=== PATIENT | male | born 1960 | race Caucasian/White ===

== ENCOUNTER → 2016-11-25 | Outpatient (CLI) | payer OTHER ==
--- NOTE | 2016-11-25 08:03 | CT ---
EXAMINATION TYPE: CT brain w con DATE OF EXAM: 11/25/2016 COMPARISON: NONE INDICATION: MOSS, syncope, recent head injury DLP: 891.3 mGycm, Automated exposure control for dose reduction was used. CONTRAST: None CT of the brain is performed utilizing 3 mm thick sections through the posterior fossa and 3 mm thick sections through the remaining calvarium. Study is performed within 24 hours of arrival to the hosp [facility]. No abnormal hyperdensity is present to suggest an acute intracranial hemorrhage. No mass lesion is evident. No acute infarcts are evident. Ventricles and sulci are appropriate for the patient age. There is mucosal thickening within the visualized ethmoid air cells. Mastoid air cells appear clear. Frontal sinuses are aplastic. Sphenoid sinuses are clear. Spina bifida occulta of C1 may be present. No abnormal enhancement is evident. IMPRESSIONS: 1. Normal postcontrast CT brain. 2. Minimal mucosal thickening through ethmoid air cells.
== END | disposition home or self-care (01) ==
LOC: RADCTMAIN 07:30
PROVIDERS: ATTEND Family Medicine
DX: G44.329 Chronic post-traumatic headache, not intractable (principal); J34.89 Other specified disorders of nose and nasal sinuses
CPT/HCPCS: 70460; Q9967

== ENCOUNTER 2019-04-19 15:15 | Inpatient (IN) | payer OTHER ==
[2019-04-19] MEDS ORDERED: IPRATROPIUM-ALBUTEROL 3 ML NEB INHALATION STA (15:57)
--- NOTE | 2019-04-19 16:18 | XR ---
EXAMINATION TYPE: XR chest 2V DATE OF EXAM: 04/19/2019 COMPARISON: 05/07/2017 INDICATION: Chest pain short of breath COPD TECHNIQUE: Frontal and lateral views of the chest are obtained. FINDINGS: The heart size is normal. The pulmonary vasculature is normal. The lungs are clear. IMPRESSION: 1. No acute pulmonary process.
[2019-04-19 16:20] LABS: Basophils # (A) 0.1 k/uL (0-0.2); Basophils % (A) 2 %; Eosinophils # (A) 0.2 k/uL (0-0.7); Eosinophils % (A) 3 %; HCT 44.8 % (39.0-53.0); Hypochromasia Slight; Lymphocytes # (A) 1.5 k/uL (1.0-4.8); Lymphocytes % (A) 23 %; MCH 30.4 pg (25.0-35.0); MCHC 31.2 g/dL (31.0-37.0); MCV 97.5 fL (80.0-100.0); Mean Platelet Volume 10.7; Monocytes # (A) 0.3 k/uL (0-1.0); Monocytes % (A) 4 %; Neutrophils # (A) 4.4 k/uL (1.3-7.7); Neutrophils % (A) 68 %; Platelet Count 292 k/uL (150-450); RBC 4.59 m/uL (4.30-5.90); RDW 13.2 % (11.5-15.5); WBC 6.5 k/uL (3.8-10.6)
[2019-04-19 16:21] LABS: Partial Thromboplastin Time 22.9 sec (22.0-30.0); Prothrombin Time 10.8 sec (9.0-12.0)
[2019-04-19 16:30] LABS: ALT 44 U/L (4-49); AST 38 U/L (17-59); African American GFR (CKD) >90 (>60 ml/min/1.73 sqM); Alkaline Phosphatase 139 U/L (38-126); Anion Gap 9 mmol/L; Blood Urea Nitrogen 17 mg/dL (9-20); Calcium 9.7 mg/dL (8.4-10.2); Carbon Dioxide 24 mmol/L (22-30); Chloride 108 mmol/L (98-107); Glucose 101 mg/dL (74-99); Magnesium 1.8 mg/dL (1.6-2.3); Non-African American GFR(CKD) >90 (>60 ml/min/1.73 sqM); Potassium 4.7 mmol/L (3.5-5.1); Sodium 141 mmol/L (137-145); Total Bilirubin 0.7 mg/dL (0.2-1.3); Total Protein 7.1 g/dL (6.3-8.2)
--- NOTE | 2019-04-19 17:45 | ED ---
Chest Pain HPI - General Chief Complaint: Chest Pain Stated Complaint: Sob/chest pain to back Time Seen by Provider: 04/19/19 15:15 Source: patient Mode of arrival: wheelchair Limitations: no limitations - History of Present Illness Initial Comments: The patient is a 58-year-old male with past medical history of COPD, not on home O2, who presents to emergency room with increasing shortness of breath for the past week. He does admit to a mild cough with sputum production. Is also having left sided chest pain. It is sharp in nature. Denies pleuritic chest pain. No recurrent tearing sensation to his back. Denies any associated nausea, vomiting or diaphoresis. Denies a previous history of cardiac disease. Unsure of his last stress test. Does admit that he has been having increased swelling over the past 2 days. This is new for the patient is never experienced this before. Breathing is worse with exertion and better with rest. He has not been taking any medications at home for her symptoms. He denies any abdominal pain or changes in his bowel or bladder habits. Continues to urinate without difficulty. No history of kidney disease. There are no relieving, precipitating or modifying factors - Related Data Previous Rx's Medication Instructions Recorded Albuterol Nebulized [Ventolin 2.5 mg INHALATION RT-Q6H PRN #120 04/25/19 Nebulized] neb Albuterol Sulfate [Proair Hfa] 2 puff INHALATION RT-Q6H PRN #1 04/25/19 inhaler Cefuroxime Axetil [Ceftin] 500 mg PO BID #10 tab 04/25/19 Furosemide [Lasix] 40 mg PO BID@0900,1600 #60 tab 04/25/19 Lisinopril [Zestril] 5 mg PO DAILY #30 tab 04/25/19 Metoprolol Tartrate [Lopressor] 50 mg PO BID #60 tab 04/25/19 Spironolactone [Aldactone] 25 mg PO DAILY #30 tab 04/25/19 Tiotropium [place] [Spiriva] 1 cap INHALATION RT-DAILY #1 inh 04/25/19 guaiFENesin SYRUP 100MG/5ML 200 mg PO Q6H PRN cup 04/25/19 [Robitussin] predniSONE 10 mg PO DIRECTED #7 tab 04/25/19 Allergies Allergy/AdvReac Type Severity Reaction Status Date / Time No Known Allergies Allergy Verified 04/19/19 18:22 Review of Systems ROS Statement: Those systems with pertinent positive or pertinent negative responses have been documented in the HPI. ROS Other: All systems not noted in ROS Statement are negative. EKG Findings - EKG Comments: EKG Findings:: EKG demonstrates a sinus tachycardia with a ventricular rate of 114. GA interval 146. QRS 90. QTC of 485. There are no acute ST segment elevations. There is an inverted T-wave with ST depression in V6. There a ppears to be inverted T waves in the inferior leads Past Medical History Past Medical History: COPD Additional Past Medical History / Comment(s): arthritis, "shakes", syncope History of Any Multi-Drug Resistant Organisms: None Reported Past Surgical History: Appendectomy Past Anesthesia/Blood Transfusion Reactions: No Reported Reaction Past Psychological History: No Psychological Hx Reported Smoking Status: Former smoker Past Alcohol Use History: Occasional Past Drug Use History: None Reported - Past Family History Mother Family Medical History: Cancer Additional Family Medical History / Comment(s): Cancer in jaw Father Family Medical History: COPD General Exam Limitations: no limitations General appearance: alert, in distress Head exam: Present: atraumatic, normocephalic, normal inspection Eye exam: Present: normal appearance, PERRL, EOMI. Absent: scleral icterus, conjunctival injection, periorbital swelling ENT exam: Present: normal exam, mucous membranes moist Neck exam: Present: normal inspection. Absent: tenderness, meningismus, lymphadenopathy Respiratory exam: Present: respiratory distress, wheezes, rales, accessory muscle use Cardiovascular Exam: Present: normal rhythm, tachycardia GI/Abdominal exam: Present: soft, normal bowel sounds. Absent: distended, tenderness, guarding, rebound, rigid Extremities exam: Present: normal inspection, full ROM, normal capillary refill. Absent: tenderness, pedal edema, joint swelling, calf tenderness Neurological exam: Present: alert, oriented X3, CN II-XII intact Psychiatric exam: Present: normal affect, normal mood Skin exam: Present: warm, dry, intact, normal color. Absent: rash Course Vital Signs 04/19/19 04/19/19 04/19/19 15:17 16:10 16:17 Temperature 97.5 F L Pulse Rate 116 H 112 H 108 H Respiratory 18 Rate Blood Pressure 127/79 O2 Sat by Pulse 98 Oximetry 04/19/19 18:42 Temperature 98.2 F Pulse Rate 112 H Respiratory 24 Rate Blood Pressure 122/94 O2 Sat by Pulse 98 Oximetry Chest Pain MDM - MDM Upon arrival the patient was placed into room 3. He is hooked up to continuous pulse ox and cardiac monitoring. He is requiring oxygen. He does have diffuse wheezing with rales at the bases. I did recommend laboratory studies. CBC is unremarkable. Coag patient studies are normal. CMP shows a glucose of 101. Troponin is elevated at 0.051. BNP is 7430. 12-lead EKG demonstrates no signs concerning for acute ST segment elevation. UA shows trace protein. Influenza A and B are negative. The patient was given a chewable aspirin. Because of this chest pain and elevated troponin I did recommend heparinizing the patient. He has no contraindications to heparin. Chest x-ray was performed which demonstrates no acute cardiopulmonary process. I did reevaluate the chest x-ray myself and I do believe I see an infiltrate at the right mid lung. Because of this and the patient's reported productive cough I did obtain a blood culture initiated the patient on antibiotics. I recommended hospital admission. He will be sent to the telemetry floor. I will consult the yarn dyer. I we will trend the patient's troponins. I will hold off on providing Lasix to the patient as he does have concern for pneumonia with sepsis. The patient was given a DuoNeb breathing treatment, 125 mg of Solu-Medrol and methylprednisolone for possible COPD exacerbation. He is reevaluated and appears resting more comfortably in the bed. I call discuss case with Dr. Gentile who accepted admission and agreed to the treatment plan. The patient was then transferred to the floor in stable condition Disposition Clinical Impression: COPD with exacerbation, Chest pain, Acute non-ST elevation myocardial infarction (NSTEMI), Pedal edema, Elevated brain natriuretic peptide (BNP) level Disposition: ADMITTED IP TO THIS HOSP Condition: Stable Is patient prescribed a controlled substance at d/c from ED?: No Decision to Admit Reason: Admit from EC Decision Date: 04/19/19 Decision Time: 18:02
[2019-04-19] MEDS ORDERED: MAGNESIUM SULFATE-D5W PMX 1 GM in DEXTROSE/WATER 1 100ML.BAG IVPB ONE (17:54)
[2019-04-19] MEDS ORDERED: methylPREDNISolone SOD SUCCI 125 MG/2 ML VIAL IV STA (17:54)
[2019-04-19] MEDS ORDERED: HEPARIN SODIUM,PORCINE 5,000 UNIT/ML 1 ML VIAL IV ONE (17:55)
[2019-04-19] MEDS ORDERED: HEPARIN SODIUM,PORCINE 5,000 UNIT/ML 1 ML VIAL IV PRN (17:55)
[2019-04-19] MEDS ORDERED: ASPIRIN 81 MG PO STA (17:59)
[2019-04-19] MEDS ORDERED: cefTRIAXone IN SWFI 1,000 MG/10 ML SYRINGE IVP STA (18:00)
[2019-04-19] MEDS ORDERED: AZITHROMYCIN 500 MG in SODIUM CHLORIDE 0.9% 250 ML IVPB STA (18:00)
[2019-04-19] MEDS ORDERED: HEPARIN SOD,PORK IN 0.45% NACL 25,000 UNIT in 0.45% NACL 1 250ML.BAG IV SCH (18:00)
[2019-04-19] MEDS ORDERED: NALOXONE 0.4 MG/ML 1 ML VIAL IV PRN (18:02)
[2019-04-19 18:31] LABS: Appearance,Urine Clear (Clear); Bilirubin,Urine Negative (Negative); Blood,Urine Negative (Negative); Color,Urine Yellow; Glucose,Urine (UA) Negative (Negative); Ketones,Urine Negative (Negative); Leukocyte Esterase,Urine Negative (Negative); Nitrite,Urine Negative (Negative); PH, Urine 5.5 (5.0-8.0); Protein,Urine Trace (Negative); Specific Gravity,Urine 1.022 (1.001-1.035); Urobilinogen,Urine <2.0 mg/dL (<2.0)
[2019-04-19] MEDS: IPRATROPIUM-ALBUTEROL 3 ML NEB INHALATION SCH ×2 (19:29→23:55)
[2019-04-19] MEDS ORDERED: NITROGLYCERIN SL TABS 0.4 MG TAB SUBLINGUAL ONE (19:48)
[2019-04-19] MEDS ORDERED: FUROSEMIDE 10 MG/ML 2 ML VIAL IV STA (19:59)
[2019-04-19] MEDS: HYDROcodone/APAP 5-325MG 1 EACH TAB PO PRN ×2 (20:08→23:15)
[2019-04-20] MEDS: HYDROcodone/APAP 5-325MG 1 EACH TAB PO PRN ×4 (03:34→20:04)
[2019-04-20] MEDS: IPRATROPIUM-ALBUTEROL 3 ML NEB INHALATION SCH ×6 (04:48→23:52)
[2019-04-20 06:18] LABS: Basophils % (A) 0 %; Eosinophils % (A) 1 %; HCT 39.9 % (39.0-53.0); HGB 12.3 gm/dL (13.0-17.5); Hypochromasia Slight; Lymphocytes # (A) 0.5 k/uL (1.0-4.8); Lymphocytes % (A) 11 %; MCH 29.8 pg (25.0-35.0); MCHC 30.8 g/dL (31.0-37.0); MCV 96.7 fL (80.0-100.0); Mean Platelet Volume 8.7; Monocytes # (A) 0.1 k/uL (0-1.0); Monocytes % (A) 2 %; Neutrophils # (A) 3.5 k/uL (1.3-7.7); Neutrophils % (A) 85 %; Platelet Count 227 k/uL (150-450); RBC 4.13 m/uL (4.30-5.90); RDW 13.1 % (11.5-15.5); WBC 4.1 k/uL (3.8-10.6)
[2019-04-20 06:34] LABS: Partial Thromboplastin Time 31.3 sec (22.0-30.0); Prothrombin Time 11.1 sec (9.0-12.0)
[2019-04-20 06:42] LABS: African American GFR (CKD) >90 (>60 ml/min/1.73 sqM); Anion Gap 9 mmol/L; Blood Urea Nitrogen 20 mg/dL (9-20); Calcium 9.1 mg/dL (8.4-10.2); Carbon Dioxide 21 mmol/L (22-30); Chloride 107 mmol/L (98-107); Glucose 140 mg/dL (74-99); Non-African American GFR(CKD) >90 (>60 ml/min/1.73 sqM); Potassium 4.7 mmol/L (3.5-5.1); Sodium 137 mmol/L (137-145)
[2019-04-20] MEDS: METOPROLOL TARTRATE 25 MG TAB PO SCH ×2 (09:34→20:04)
--- NOTE | 2019-04-20 12:57 | CT ---
EXAMINATION TYPE: CT angio chest DATE OF EXAM: 04/20/2019 12:44 PM COMPARISON: Previous study dated 07/11/2010. HISTORY: NSTEMI, CP, pneumonia, elevated d-dimer CT DLP: 432.7 mGycm Automated exposure control for dose reduction was used. CONTRAST: CTA scan of the thorax is performed with IV Contrast, patient injected with 100 mL of Isovue 370, pul monary embolism protocol. . There is a small right-sided effusion. There is some airspace disease in the right lung base which ma y represent atelectasis or pneumonia. Lungs are otherwise clear. There is no significant axillary, mediastinal or hilar adenopathy. There is no evidence of pulmonary embolus. The heart is mildly enlarged. There is no pericardial flui d seen. There is some reflux of contrast into the inferior vena cava. There is a small amount of free fluid within the abdomen. There is hypertrophic spondylosis within the spine. IMPRESSION: 1. THIS EXAMINATION IS NEGATIVE FOR PULMONARY EMBOLUS. 2. CARDIOMEGALY. 3. SMALL AMOUNT OF RIGHT-SIDED PLEURAL FLUID WELL MILD ASCITES. 4. AIRSPACE DISEASE THE RIGHT LUNG BASE MAY REPRESENT ATELECTASIS OR EARLY PNEUMONIA.
--- NOTE | 2019-04-20 14:30 | CONS ---
CONSULTATION This is a 58-year-old gentleman admitted to the hospital with increasing shortness of breath and chest discomfort through the emergency room. Upon arrival, his pain seemed to be more or less pleuritic in nature and he had sinus tachycardia. His oxygen saturation was acceptable. Quality of the pain seems atypical. Troponin is equivocal. He is resting comfortably, but with a little activity he seems to have shortness of breath. He has history of smoking, COPD, and left-sided discomfort, quality of which is somewhat respirophasic and atypical. PAST MEDICAL HISTORY: Past medical history is remarkable for smoking, COPD, arthritis. He had a stress test in 2013 which was normal; this was a dobutamine echo. PAST SURGICAL HISTORY: He is status post appendectomy. ALLERGIES: NONE. MEDICATIONS: Medications include inhalers in the form of albuterol and Spiriva. PHYSICAL EXAMINATION: On examination, blood pressure is 130/80, pulse rate is about 100. HEENT: Unremarkable. Fundus was not examined by me. NECK: Supple. There is JVD of 1 cm. No carotid bruit. HEART: Exam reveals S1, S2 with tachycardia. LUNGS: Lungs reveal scattered rhonchi, diminished air entry. ABDOMEN: Soft, nontender. LOWER EXTREMITIES: Diminished pulses. CENTRAL NERVOUS SYSTEM: Normal. EKG revealed sinus rhythm, sinus tachycardia, poor R-wave progression. Cannot exclude septal infarct, but no acute ST-segment changes. LABORATORY DATA: Laboratory data revealed that troponin levels were equivocal at 0.051 and 0.026 and 0.051. BNP is mildly elevated at 7,400. IMPRESSION: 1. Chest pain syndrome with equivocal troponins. 2. Exacerbation of chronic obstructive pulmonary disease. 3. Rule out any pulmonary embolism type picture, although clinical picture is not strongly suggestive. 4. History of smoking and chronic obstructive pulmonary disease. RECOMMENDATIONS: I am recommending that we continue IV heparin. I am recommending a D-dimer, a small dose of beta shahram, and continue bronchodilator therapy. Prognosis remains guarded. Based on the D-dimer findings, I will consider CT angiography. Initiate him on a beta shahram. Discussed my thoughts in detail with the patient. Thank you very much for the consult. MMODL / IJN: [id number] /
[2019-04-20] MEDS: HEPARIN SODIUM,PORCINE 5,000 UNIT/ML 1 ML VIAL SQ SCH (20:04)
--- NOTE | 2019-04-20 22:17 | HP ---
HISTORY AND PHYSICAL 58-year-old gentleman admitted due to increasing shortness of breath and atypical chest pain, more pleuritic in nature. Some sinus tachycardia. He does complain of increasing edema of his legs recently. He has a history of smoking, COPD, arthritis. Stress test in 2014 normal. SURGICAL HISTORY: Appendectomy. ALLERGIES: None. MEDICATIONS: Albuterol and Spiriva. REVIEW OF SYSTEMS: Fourteen-point review of systems negative except for as mentioned in HPI. His blood pressure is 130/80, pulse is around 100. He is wearing 2 L of oxygen, mid 90s. Cardiovascular S1/S2. Lungs reveal scattered rhonchi, diminished air flow, scattered wheeze. Neck supple. No mass. Abdomen soft, nontender. Vascular: Diminished pulses. Abnormal EKG, sinus rhythm, sinus tachycardia, poor R-wave progression. BNP 7400. ASSESSMENT: 1. Chest pain syndrome, equivocal troponins. 2. Chronic obstructive pulmonary disease exacerbation. 3. Possible pneumonia in the right lower lung base. 4. Nicotine addiction. Possible IV steroids, IV antibiotics, updraft treatments. Please see further orders. MMODL / IJN: [id number] /
[2019-04-21] MEDS: HYDROcodone/APAP 5-325MG 1 EACH TAB PO PRN ×5 (00:38→20:41)
[2019-04-21] MEDS: methylPREDNISolone SOD SUCCI 40 MG/ML 1 ML VIAL IV SCH ×4 (00:38→23:33)
[2019-04-21] MEDS: FUROSEMIDE 10 MG/ML 2 ML VIAL IV SCH ×5 (00:39→23:33)
[2019-04-21] MEDS: IPRATROPIUM-ALBUTEROL 3 ML NEB INHALATION SCH ×6 (04:09→23:36)
[2019-04-21 06:08] LABS: Glucose,Whole Blood 144 mg/dL (75-99)
[2019-04-21 06:20] LABS: Basophils % (A) 0 %; Eosinophils % (A) 0 %; HCT 42.6 % (39.0-53.0); HGB 12.9 gm/dL (13.0-17.5); Hypochromasia Slight; Lymphocytes # (A) 0.6 k/uL (1.0-4.8); Lymphocytes % (A) 6 %; MCH 29.6 pg (25.0-35.0); MCHC 30.4 g/dL (31.0-37.0); MCV 97.4 fL (80.0-100.0); Mean Platelet Volume 8.4; Monocytes # (A) 0.2 k/uL (0-1.0); Monocytes % (A) 2 %; Neutrophils # (A) 8.5 k/uL (1.3-7.7); Neutrophils % (A) 91 %; Platelet Count 246 k/uL (150-450); RBC 4.37 m/uL (4.30-5.90); RDW 13.3 % (11.5-15.5); WBC 9.4 k/uL (3.8-10.6)
[2019-04-21 06:30] LABS: Calcium 9.7 mg/dL (8.4-10.2); Potassium 5.3 mmol/L (3.5-5.1); Total Bilirubin 0.4 mg/dL (0.2-1.3)
[2019-04-21] MEDS: HEPARIN SODIUM,PORCINE 5,000 UNIT/ML 1 ML VIAL SQ SCH ×2 (09:22→20:42)
[2019-04-21] MEDS: METOPROLOL TARTRATE 25 MG TAB PO SCH (09:24)
[2019-04-21] MEDS ORDERED: METOPROLOL TARTRATE 25 MG TAB PO STA (11:16)
[2019-04-21 11:52] LABS: Glucose,Whole Blood 191 mg/dL (75-99)
--- NOTE | 2019-04-21 14:34 | P.PN ---
Subjective Progress Note Date: 04/21/19 Principal diagnosis: NSTEMI/Troponin elevation PROGRESS NOTE 04/21/2018 58-year-old gentleman with history of current smoking 1/2 PPD, arthritis and COPD. Pt presented to emergency room with shortness of breath and chest discomfort. Patient currently sitting at the bedside in no acute distress. Quietly enjoying his breakfast. Patient continues with complaints of shortness of breath, nagging hacking productive cough and right shoulder pain. Patient remained sinus tach monitors, heart rate currently 96. Exam reveals 2-3+ edema to the lower extremities. Lung auscultation reveals bilateral coarse rhonchi and bilateral wheeze. Patient states cough is productive. Patient continues smoking one half pack per day. Patient has no current complaints of chest pain, chest pressure or palpitations. No DM. CT of chest was negative for PE. PHYSICAL EXAMINATION: HEENT: Head is atraumatic, normocephalic. Pupils are equal, round. Sclerae anicteric. Conjunctivae are clear. Mucous membranes of the mouth are moist. Neck is supple. There is no jugular venous distention. No carotid bruit is heard. No thyromegaly. LUNGS: Bilateral wheezes and course rhonchi. No chest wall tenderness is noted on palpation or with deep breathing. HEART: Regular rate and rhythm (but tachycardic) without murmurs, rubs or gallops. S1 and S2 heard. ABDOMEN: Abdominal exam revealed normal bowel sounds. The abdomen was soft, non-tender, and without masses, organomegaly, or appreciable enlargement of the abdominal aorta. EXTREMITIES: Examination of the extremities revealed easily palpable radial, femoral and pedal pulses. There was no cyanosis or clubbing. 3-4+ edema noted. No calf tenderness noted. VASCULAR: Radial and dorsalis pedis pulses palpated, no evidence of clubbing. NEUROLOGIC: Patient is awake, alert and oriented x3. There were no obvious focal neurologic abnormalities. LAB DATA: Troponins 0.051 and 0.026. K 5.3 BUN 30, CR 1.08 FINAL IMPRESSION: 1. COPD exacerbation 2. Elevated troponin - now normalized 3. Lower extremity edema 4. Sinus Tachycardia 5. Smoking currently 1/2 PPD PLAN: START Lasix IV 20 mg every 8 hours. INCREASE metoprolol tartrate to 50 mg twice daily. Continue with updraft treatments/antibiotics/steroids. Continue same all other medical/medication regime. Heart healthy diet. Smoking cessation education. Consider pulmonary evaluation. Add Robitussin. Objective - Vital Signs Vital signs: Vital Signs Temp 97.6 F 04/21/19 12:00 Pulse 99 04/21/19 14:09 Resp 20 04/21/19 14:09 BP 129/79 04/21/19 12:00 Pulse Ox 99 04/21/19 12:00 Intake & Output 04/20/19 04/21/19 04/21/19 18:59 06:59 18:59 Intake Total 510.8 710 720 Output Total 600 800 Balance -89.2 -90 720 Weight 77.6 kg Intake: Intake, IV Titration 50.8 Amount Heparin Sod,Pork in 0.45% 50.8 NaCl 25,000 unit In 0.45 % NaCl 1 250ml.bag @ 12 UNITS/KG/HR 8.165 mls/hr IV .Q24H GONZÁLEZ Rx#: [id number] Oral 460 710 720 Output: Urine 600 800 Other: Voiding Method Urinal Urinal Toilet # Voids 2 - Labs CBC & Chem 7: 04/21/19 06:01 04/21/19 06:01 Labs: Abnormal Lab Results - Last 24 Hours (Table) 04/21/19 04/21/19 04/21/19 Range/Units 06:01 06:01 06:07 Hgb 12.9 L (13.0-17.5) gm/dL MCHC 30.4 L (31.0-37.0) g/dL Neutrophils # 8.5 H (1.3-7.7) k/uL Lymphocytes # 0.6 L (1.0-4.8) k/uL Potassium 5.3 H (3.5-5.1) mmol/L BUN 30 H (9-20) mg/dL Glucose 131 H (74-99) mg/dL POC Glucose (mg/dL) 144 H (75-99) mg/dL 04/21/19 Range/Units 11:50 Hgb (13.0-17.5) gm/dL MCHC (31.0-37.0) g/dL Neutrophils # (1.3-7.7) k/uL Lymphocytes # (1.0-4.8) k/uL Potassium (3.5-5.1) mmol/L BUN (9-20) mg/dL Glucose (74-99) mg/dL POC Glucose (mg/dL) 191 H (75-99) mg/dL Microbiology - Last 24 Hours (Table) 04/19/19 16:15 Blood Culture - Preliminary Blood No Growth after 24 hours
--- NOTE | 2019-04-21 16:12 | PN ---
PROGRESS NOTE 58-year-old, white male. Current history of smoking half pack a day, asthma, COPD, arthritis, came in with chest pain and discomfort. Cardiology saw him. He had CT of the chest negative for PE. He has wheezing and rhonchi on chest exam. Cardiovascular is S1, S2. Abdomen is soft. Extremities 2+ edema. Neurologic: Cranial nerves are intact. Troponins 0.0051, 0.026, potassium 5.3, BUN 30, creatinine 1.08. ASSESSMENT: 1. Chronic obstructive pulmonary disease exacerbation. 2. Elevated troponin possibly secondary to tracheobronchitis, chronic obstructive pulmonary disease exacerbation. 3. Lower extremity edema. 4. Possibly diastolic congestive heart failure. 5. Sinus tach. 6. Nicotine addiction. Continue with IV Lasix 20 every 8. Increase metoprolol 50 b.i.d., updrafts, antibiotics, steroids. Please see further orders. MMODL / IJN: [id number] /
[2019-04-21 16:47] LABS: Glucose,Whole Blood 168 mg/dL (75-99)
[2019-04-21] MEDS: AZITHROMYCIN 500 MG in SODIUM CHLORIDE 0.9% 250 ML IVPB SCH (17:50)
[2019-04-21] MEDS: guaiFENesin SYRUP 100MG/5ML 200 MG/10 ML CUP PO PRN (20:42)
[2019-04-21] MEDS: METOPROLOL TARTRATE 50 MG TAB PO SCH (20:42)
[2019-04-21 20:54] LABS: Glucose,Whole Blood 163 mg/dL (75-99)
--- NOTE | 2019-04-21 22:46 | P.CNPUL ---
History of Present Illness Consult date: 04/21/19 Reason for consult: dyspnea, cough, COPD Chief complaint: Shortness of breath and swelling of the lower extremities for last 10 days History of present illness: This is a 58-year-old male with extensive history of smoking and nicotine use, he has stopped smoking about 10 days ago due to shortness of breath along with s hortness of breath he started experiencing increased swelling of the lower extremity, patient came into the hospital a chest x-ray was unremarkable however computed tomography scan of the chest negative for for pulmonary embolism but did show small right pleural effusion and interstitial edema, patient has been evaluated by cardiovascular services, patient has been started by cardiology services IV Lasix every 8 hour was seems to be helping, in addition patient has been on bronchodilator IV steroids for COPD exacerbation Review of Systems All systems: negative Past Medical History Past Medical History: COPD Additional Past Medical History / Comment(s): arthritis, "shakes", syncope History of Any Multi-Drug Resistant Organisms: None Reported Past Surgical History: Appendectomy Past Anesthesia/Blood Transfusion Reactions: No Reported Reaction Past Psychological History: No Psychological Hx Reported Smoking Status: Former smoker Past Alcohol Use History: Occasional Past Drug Use History: None Reported - Past Family History Mother Family Medical History: Cancer Additional Family Medical History / Comment(s): Cancer in jaw Father Family Medical History: COPD Medications and Allergies Home Medications Medication Instructions Recorded Confirmed Type Albuterol Nebulized [Ventolin 2.5 mg INHALATION RT-Q6H PRN 04/19/19 04/19/19 History Nebulized] Albuterol Sulfate [Proair Hfa] 2 puff INHALATION RT-Q6H PRN 04/19/19 04/19/19 History Tiotropium [place] [Spiriva] 1 cap INHALATION RT-DAILY 04/19/19 04/19/19 History Allergies Allergy/AdvReac Type Severity Reaction Status Date / Time No Known Allergies Allergy Verified 04/19/19 18:22 Physical Exam Vitals: Vital Signs Temp Pulse Pulse Resp BP Pulse Ox 04/21/19 20:00 97.4 F L 91 17 117/74 96 04/21/19 19:13 104 H 04/21/19 18:59 104 H 04/21/19 15:16 90 04/21/19 15:06 87 96 04/21/19 14:53 97.8 F 86 20 123/82 97 04/21/19 14:09 99 20 04/21/19 12:00 97.6 F 99 20 129/79 99 04/21/19 11:54 96 04/21/19 11:45 94 04/21/19 08:30 94 04/21/19 08:20 98 97 04/21/19 08:00 97.4 F L 99 22 115/77 98 04/21/19 05:20 97.9 F 101 H 22 101/66 94 L 04/21/19 04:29 99 04/21/19 04:10 97 04/21/19 00:53 97.9 F 99 20 107/77 95 04/21/19 00:05 97 04/20/19 23:54 98 Intake and Output 04/21/19 04/21/19 04/21/19 06:59 14:59 22:59 Intake Total 720 840 Output Total 400 Balance -400 720 840 Intake: Oral 720 840 Output: Urine 400 Other: Voiding Method Urinal Toilet # Voids 2 Weight 77.6 kg - Constitutional General appearance: average body habitus, cooperative, disheveled, mild distress - EENT Eyes: EOMI, PERRLA, dentition normal, normal appearance ENT: normal oropharynx Ears: bilateral: normal - Neck Neck: normal ROM Carotids: bilateral: upstroke normal Thyroid: bilateral: normal size - Respiratory Respiratory: bilateral: diminished, prolonged expiration - Cardiovascular Rhythm: regular Heart sounds: normal: S1, S2 - Gastrointestinal General gastrointestinal: distended, soft - Integumentary Integumentary: normal, normal turgor - Neurologic Neurologic: CNII-XII intact - Musculoskeletal Musculoskeletal: gait normal, generalized weakness, strength equal bilaterally - Psychiatric Psychiatric: A&O x's 3, appropriate affect, intact judgment & insight Results - Laboratory Findings CBC and BMP: 04/21/19 06:01 04/21/19 06:01 PT/INR, D-dimer PT 11.1 sec (9.0-12.0) 04/20/19 05:31 INR 1.0 (<1.2) 04/20/19 05:31 D-Dimer 0.70 mg/L FEU (<0.60) H 04/20/19 05:31 Abnormal lab findings: Abnormal Labs 04/19/19 04/19/19 04/19/19 15:35 15:35 16:35 RBC Hgb MCHC Neutrophils # Lymphocytes # APTT D-Dimer Potassium Chloride 108 H Carbon Dioxide BUN Glucose 101 H POC Glucose (mg/dL) Alkaline Phosphatase 139 H Troponin I 0.051 H* Urine Protein Trace H 04/19/19 04/20/19 04/20/19 21:05 00:54 05:31 RBC 4.13 L Hgb 12.3 L MCHC 30.8 L Neutrophils # Lymphocytes # 0.5 L APTT 41.7 H D-Dimer Potassium Chloride Carbon Dioxide BUN Glucose POC Glucose (mg/dL) Alkaline Phosphatase Troponin I 0.051 H* Urine Protein 04/20/19 04/20/19 04/20/19 05:31 05:31 05:31 RBC Hgb MCHC Neutrophils # Lymphocytes # APTT 31.3 H D-Dimer 0.70 H Potassium Chloride Carbon Dioxide 21 L BUN Glucose 140 H POC Glucose (mg/dL) Alkaline Phosphatase Troponin I Urine Protein 04/21/19 04/21/19 04/21/19 06:01 06:01 06:07 RBC Hgb 12.9 L MCHC 30.4 L Neutrophils # 8.5 H Lymphocytes # 0.6 L APTT D-Dimer Potassium 5.3 H Chloride Carbon Dioxide BUN 30 H Glucose 131 H POC Glucose (mg/dL) 144 H Alkaline Phosphatase Troponin I Urine Protein 04/21/19 04/21/19 04/21/19 11:50 16:44 20:53 RBC Hgb MCHC Neutrophils # Lymphocytes # APTT D-Dimer Potassium Chloride Carbon Dioxide BUN Glucose POC Glucose (mg/dL) 191 H 168 H 163 H Alkaline Phosphatase Troponin I Urine Protein - Diagnostic Findings Chest x-ray: report reviewed (Finding as noted above), image reviewed CT scan - chest: report reviewed, image reviewed Assessment and Plan Assessment: Likely component of congestive heart failure unknown ejection fraction COPD with acute exacerbation Small right-sided pleural effusion Extensive history of smoking and nicotine use Elevated troponin Plan: Agree with bronchodilator IV steroids Broad-spectrum antibiotics Cardiology have started patient on furosemide We'll check an echo Time with Patient: Greater than 30
[2019-04-22] MEDS: IPRATROPIUM-ALBUTEROL 3 ML NEB INHALATION SCH ×5 (03:27→21:03)
[2019-04-22 06:12] LABS: Glucose,Whole Blood 130 mg/dL (75-99)
[2019-04-22] MEDS: HYDROcodone/APAP 5-325MG 1 EACH TAB PO PRN ×4 (06:38→21:10)
[2019-04-22] MEDS: guaiFENesin SYRUP 100MG/5ML 200 MG/10 ML CUP PO PRN ×3 (06:40→21:11)
[2019-04-22 06:54] LABS: African American GFR (CKD) >90 (>60 ml/min/1.73 sqM); Anion Gap 7 mmol/L; Blood Urea Nitrogen 32 mg/dL (9-20); Calcium 9.7 mg/dL (8.4-10.2); Carbon Dioxide 28 mmol/L (22-30); Chloride 101 mmol/L (98-107); Glucose 125 mg/dL (74-99); Magnesium 1.9 mg/dL (1.6-2.3); Non-African American GFR(CKD) 83 (>60 ml/min/1.73 sqM); Potassium 4.9 mmol/L (3.5-5.1); Sodium 136 mmol/L (137-145)
[2019-04-22] MEDS: METOPROLOL TARTRATE 50 MG TAB PO SCH ×2 (09:53→21:10)
[2019-04-22] MEDS: methylPREDNISolone SOD SUCCI 40 MG/ML 1 ML VIAL IV SCH ×2 (09:54→21:10)
[2019-04-22] MEDS: FUROSEMIDE 10 MG/ML 2 ML VIAL IV SCH (09:54)
[2019-04-22] MEDS: HEPARIN SODIUM,PORCINE 5,000 UNIT/ML 1 ML VIAL SQ SCH ×2 (09:54→21:09)
--- NOTE | 2019-04-22 10:58 | PN ---
PROGRESS NOTE Mr. Yap is a gentleman who came in with acute bronchitis, had significant respiratory issues which have improved. He developed lower extremity edema. He has no chest pain at the time of my evaluation. His troponin profile does not suggest myocardial injury. Vital signs are stable. S1-S2 heard normally. Lungs reveal improved air entry. Scattered rhonchi persist. Abdomen is soft. Lower extremity edema has improved modestly. Plan is to continue current medications including IV diuresis. Obtain echocardiogram. MMODL / IJN: [id number] /
[2019-04-22] MEDS: LISINOPRIL 5 MG TAB PO SCH (11:27)
[2019-04-22 11:50] LABS: Glucose,Whole Blood 132 mg/dL (75-99)
--- NOTE | 2019-04-22 12:01 | ECHOF ---
Referral Reason:shortness of breath MEASUREMENTS -------- HEIGHT: 170.2 cm WEIGHT: 76.2 kg BP: 118/76 RVIDd: 4.1 cm (< 3.3) IVSd: 1.2 cm (0.6 - 1.1) LVIDd: 5.2 cm (3.9 - 5.3) LVPWd: 1.2 cm (0.6 - 1.1) IVSs: 1.5 cm LVIDs: 4.9 cm LVPWs: 1.6 cm LA Diam: 3.4 cm (2.7 - 3.8) LAESV Index (A-L): 45.55 ml/m Ao Diam: 3.3 cm (2.0 - 3.7) AV Cusp: 2.0 cm (1.5 - 2.6) MV EXCURSION: 14.642 mm (> 18.000) MV EF SLOPE: 71 mm/s (70 - 150) EPSS: 2.7 cm MV E Carloz: 0.86 m/s MV DecT: 112 ms MV A Carloz: 0.41 m/s MV E/A Ratio: 2.10 RAP: 15.00 mmHg RVSP: 44.51 mmHg TAPSE: 11.13 mm FINDINGS -------- Sinus rhythm. This was a technically good study. The left ventricular size is normal. There is borderline concentric left ventricular hypertrophy. Overall left ventricular systolic function is severely impaired with, an EF between 20 - 25 %. Inc reased LAP. Grade 4 Diastolic Dysfunction. The right ventricle is moderately enlarged. LA is severely dilated >40 ml/m2 The right atrium is normal in size. Interatrial and interventricular septum intact. The aortic valve is trileaflet and appears structurally normal. Mild mitral regurgitation is present. Mild tricuspid regurgitation present. There is mild to moderate pulmonary hypertension. The right ventricular systolic pressure, as measured by Doppler, is 44.51mmHg. There is no pulmonic regurgitation present. The aortic root size is normal. The inferior vena cava is dilated with no significant inspiratory collapse which is consistent estima ariane right atrial pressure of >15 mmHg. There is no pericardial effusion. CONCLUSIONS -------- 1. Sinus rhythm. 2. This was a technically good study. 3. The left ventricular size is normal. 4. There is borderline concentric left ventricular hypertrophy. 5. Overall left ventricular systolic function is severely impaired with, an EF between 20 - 25 %. 6. Increased LAP. Grade 1 Diastolic Dysfunction. 7. The right ventricle is moderately enlarged. 8. LA is severely dilated >40 ml/m2 9. The right atrium is normal in size. 10. Interatrial and interventricular septum intact. 11. The aortic valve is trileaflet and appears structurally normal. 12. Mild mitral regurgitation is present. 13. Mild tricuspid regurgitation present. 14. There is mild to moderate pulmonary hypertension. 15. The right ventricular systolic pressure, as measured by Doppler, is 44.51mmHg. 16. There is no pulmonic regurgitation present. 17. The aortic root size is normal. 18. The inferior vena cava is dilated with no significant inspiratory collapse which is consistent es timated right atrial pressure of >15 mmHg. 19. There is no pericardial effusion. BINDER OPERATOR: Winter Iqbal RDCS
[2019-04-22 12:04] LABS: Glucose,Whole Blood 121 mg/dL (75-99)
--- NOTE | 2019-04-22 13:21 | XR ---
EXAMINATION TYPE: XR chest 2V DATE OF EXAM: 04/22/2019 COMPARISON: 04/19/2019 HISTORY: Shortness of breath. Follow-up for congestive heart failure. TECHNIQUE: Frontal and lateral views of the chest are obtained. FINDINGS: There is no focal air space opacity, pulmonary vascular congestion, or pneumothorax seen. Trace right pleural effusion blunts the costophrenic angle. The cardiac silhouette size is enlarged as seen on the prior. The osseous structures are intact. Mild multilevel degenerative disc disease of the spine. IMPRESSION: Persistent trace right pleural effusion, otherwise no acute cardiopulmonary process.
--- NOTE | 2019-04-22 16:22 | P.PN ---
Subjective Progress Note Date: 04/22/19 Principal diagnosis: Likely component of congestive heart failure unknown ejection fraction COPD with acute exacerbation Small right-sided pleural effusion Extensive history of smoking and nicotine use Elevated troponin 04/22/2019, patient seen eval examined during the rounds labs reviewed medications reviewed care plan discussed with the patient at length shortness of breath is slightly improved with the Lasix patient had echocardiogram revealed ejection fraction 20%, cardiovascular services following, chest x-ray reviewed performed today trace pleural effusion the congestive heart failure changes noted This is a 58-year-old male with extensive history of smoking and nicotine use, he has stopped smoking about 10 days ago due to shortness of breath along with shortness of breath he started experiencing increased swelling of the lower ext remity, patient came into the hospital a chest x-ray was unremarkable however computed tomography scan of the chest negative for for pulmonary embolism but did show small right pleural effusion and interstitial edema, patient has been evaluated by cardiovascular services, patient has been started by cardiology services IV Lasix every 8 hour was seems to be helping, in addition patient has been on bronchodilator IV steroids for COPD exacerbation Objective - Vital Signs Vital signs: Vital Signs Temp 98.1 F 04/22/19 11:25 Pulse 89 04/22/19 14:26 Resp 20 04/22/19 14:26 BP 113/71 04/22/19 11:25 Pulse Ox 99 04/22/19 11:25 Intake & Output 04/21/19 04/22/19 04/22/19 18:59 06:59 18:59 Intake Total 1080 480 540 Balance 1080 480 540 Weight 76.6 kg Intake: Oral 1080 480 540 Other: Voiding Method Toilet Toilet # Voids 2 1 0 - Exam - Constitutional General appearance: average body habitus, cooperative, disheveled, mild distress - EENT Eyes: EOMI, PERRLA, dentition normal, normal appearance ENT: normal oropharynx Ears: bilateral: normal - Neck Neck: normal ROM Carotids: bilateral: upstroke normal Thyroid: bilateral: normal size - Respiratory Respiratory: bilateral: diminished, prolonged expiration - Cardiovascular Rhythm: regular Heart sounds: normal: S1, S2 - Gastrointestinal General gastrointestinal: distended, soft - Integumentary Integumentary: normal, normal turgor - Neurologic Neurologic: CNII-XII intact - Musculoskeletal Musculoskeletal: gait normal, generalized weakness, strength equal bilaterally - Psychiatric Psychiatric: A&O x's 3, appropriate affect, intact judgment & insight - Labs CBC & Chem 7: 04/21/19 06:01 04/22/19 06:09 Labs: Abnormal Lab Results - Last 24 Hours (Table) 04/21/19 04/21/19 04/22/19 Range/Units 16:44 20:53 06:09 Sodium 136 L (137-145) mmol/L BUN 32 H (9-20) mg/dL Glucose 125 H (74-99) mg/dL POC Glucose (mg/dL) 168 H 163 H (75-99) mg/dL 04/22/19 04/22/19 04/22/19 Range/Units 06:11 11:43 12:02 Sodium (137-145) mmol/L BUN (9-20) mg/dL Glucose (74-99) mg/dL POC Glucose (mg/dL) 130 H 132 H 121 H (75-99) mg/dL Microbiology - Last 24 Hours (Table) 04/19/19 16:15 Blood Culture - Preliminary Blood No Growth after 48 hours Assessment and Plan Assessment: Severe congestive heart failure likely acute on chronic systolic heart failure ejection fraction only 20-25% COPD with acute exacerbation Small right-sided pleural effusion Extensive history of smoking and nicotine use Elevated troponin Plan: Agree with bronchodilator IV steroids Broad-spectrum antibiotics Optimize therapy for heart failure Cardiology have started patient on furosemide We'll check an echo Time with Patient: Greater than 30
[2019-04-22] MEDS: FUROSEMIDE 10 MG/ML 4 ML VIAL IV SCH (16:30)
[2019-04-22 16:58] LABS: Glucose,Whole Blood 134 mg/dL (75-99)
[2019-04-22] MEDS: AZITHROMYCIN 500 MG in SODIUM CHLORIDE 0.9% 250 ML IVPB SCH (18:31)
--- NOTE | 2019-04-22 19:50 | PN ---
PROGRESS NOTE Mr. Yap had an echocardiogram today. Study reveals ejection fraction of 25% with a global decrease in contractility. His presentation was that of pneumonia bronchitis, but also had clinical features of congestive heart failure. I explained the findings in detail and had a discussion with the patient and family members, including daughter and brothers. The patient drinks alcohol on a daily basis. I have advised that he should refrain from alcohol completely. We will optimize his heart failure management. Will perform coronary angiography to rule out obstructive CAD as a cause for cardiomyopathy and will repeat echo after abstinence from alcohol for 3 months. I explained this to the patient in detail. We will optimize his heart failure management today. I discussed this in great detail after my initial visit with him. We will increase the diuretics, add Aldactone and also Lisinopril, and based on clinical course, I will make further recommendations. I discussed my thoughts in detail with the patient and family members. TOÑO / CURTIS: [id number] /
[2019-04-22 20:37] LABS: Glucose,Whole Blood 121 mg/dL (75-99)
[2019-04-22] MEDS ORDERED: methylPREDNISolone SOD SUCCI 40 MG/ML 1 ML VIAL IV SCH (21:00)
[2019-04-23] MEDS: FUROSEMIDE 10 MG/ML 4 ML VIAL IV SCH ×4 (00:21→23:12)
[2019-04-23] MEDS: HYDROcodone/APAP 5-325MG 1 EACH TAB PO PRN ×4 (01:11→20:54)
[2019-04-23] MEDS: IPRATROPIUM-ALBUTEROL 3 ML NEB INHALATION SCH ×7 (03:51→23:57)
--- NOTE | 2019-04-23 05:39 | PN ---
PROGRESS NOTE A 58-year-old white male states he is breathing much better with the IV Lasix, the Rocephin, azithromycin, albuterol and Atrovent updrafts as well as Solu-Medrol and IV Lasix 40 q.8 hours for congestive heart failure. Cardiology saw the patient and apparently Cardiology says he drinks alcohol on his daily basis. He has cardiomyopathy and coronary angiography will be done to rule out further blockage as a cause of cardiomyopathy. Medications were reviewed. CHEST: Lungs are scattered wheeze. CARDIOVASCULAR: S1, S2. ABDOMEN: Is distended. HEMATOLOGIC: Is 2 to 3+ edema. ASSESSMENT: 1. Acute on chronic systolic congestive heart failure. 2. Chronic obstructive pulmonary disease. 3. Tracheobronchitis. 4. Rule out obstructive cardiac blockage with a heart catheterization by Cardiology in the near future. MMODL / IJN: [id number] /
[2019-04-23 06:21] LABS: Glucose,Whole Blood 114 mg/dL (75-99)
[2019-04-23 06:34] LABS: Basophils % (A) 0 %; Eosinophils % (A) 0 %; HCT 42.1 % (39.0-53.0); Hypochromasia Slight; Lymphocytes # (A) 0.9 k/uL (1.0-4.8); Lymphocytes % (A) 7 %; MCH 29.8 pg (25.0-35.0); MCV 96.1 fL (80.0-100.0); Mean Platelet Volume 8.7; Monocytes # (A) 0.4 k/uL (0-1.0); Monocytes % (A) 3 %; Neutrophils # (A) 10.9 k/uL (1.3-7.7); Neutrophils % (A) 89 %; Platelet Count 255 k/uL (150-450); RBC 4.38 m/uL (4.30-5.90); RDW 13.2 % (11.5-15.5); WBC 12.3 k/uL (3.8-10.6)
[2019-04-23 06:43] LABS: Calcium 9.8 mg/dL (8.4-10.2); Potassium 4.5 mmol/L (3.5-5.1); Total Bilirubin 0.6 mg/dL (0.2-1.3); Total Protein 7.1 g/dL (6.3-8.2)
[2019-04-23] MEDS: METOPROLOL TARTRATE 50 MG TAB PO SCH ×2 (08:16→20:52)
[2019-04-23] MEDS: methylPREDNISolone SOD SUCCI 40 MG/ML 1 ML VIAL IV SCH ×2 (08:17→20:53)
[2019-04-23] MEDS: HEPARIN SODIUM,PORCINE 5,000 UNIT/ML 1 ML VIAL SQ SCH ×2 (08:17→20:52)
[2019-04-23] MEDS ORDERED: SODIUM CHLORIDE 0.9% 1,000 ML in EMPTY BAG 1 BAG IV ONE (09:11)
[2019-04-23] MEDS ORDERED: NITROGLYCERIN SL TABS 0.4 MG TAB SUBLINGUAL PRN (09:11)
[2019-04-23] MEDS ORDERED: ATORVASTATIN 80 MG TAB PO STA (09:11)
[2019-04-23] MEDS ORDERED: ALPRAZolam 0.25 MG TAB PO PRN (09:11)
[2019-04-23] MEDS ORDERED: ALPRAZolam 0.5 MG TAB PO PRN (09:11)
[2019-04-23] MEDS ORDERED: ASPIRIN 325 MG TAB PO STA (09:11)
[2019-04-23] MEDS: SPIRONOLACTONE 25 MG TAB PO SCH (12:16)
[2019-04-23] MEDS: LISINOPRIL 5 MG TAB PO SCH (12:17)
[2019-04-23 12:20] LABS: Glucose,Whole Blood 93 mg/dL (75-99)
--- NOTE | 2019-04-23 13:52 | P.PN ---
Subjective Progress Note Date: 04/23/19 Principal diagnosis: Likely component of congestive heart failure unknown ejection fraction COPD with acute exacerbation Small right-sided pleural effusion Extensive history of smoking and nicotine use Elevated troponin 04/23/2019, patient seen eval examined during the rounds shortness of breath is improved patient continue be diuresis, patient is scheduled for cardiac cath and angiogram later on this afternoon respiratory status overall stable we will start titrating steroids down in next 24 hours 04/22/2019, patient seen eval examined during the rounds labs reviewed medications reviewed care plan discussed with the patient at length shortness of breath is slightly improved with the Lasix patient had echocardiogram revealed ejection fraction 20%, cardiovascular services following, chest x-ray reviewed performed today trace pleural effusion the congestive heart failure changes noted This is a 58-year-old male with extensive history of smoking and nicotine use, he has stopped smoking about 10 days ago due to shortness of breath along with shortness of breath he started experiencing increased swelling of the lower extremity, patient came into the hospital a chest x-ray was unremarkable however computed tomography scan of the chest negative for for pulmonary embolism but did show small right pleural effusion and interstitial edema, patient has been evaluated by cardiovascular services, patient has been started by cardiology services IV Lasix every 8 hour was seems to be helping, in addition patient has been on bronchodilator IV steroids for COPD exacerbation Objective - Vital Signs Vital signs: Vital Signs Temp 97.5 F L 04/23/19 12:01 Pulse 90 04/23/19 12:07 Resp 20 04/23/19 12:01 BP 110/72 04/23/19 12:01 Pulse Ox 98 04/23/19 12:01 Intake & Output 04/22/19 04/23/19 04/23/19 18:59 06:59 18:59 Intake Total 780 240 180 Balance 780 240 180 Weight 76.3 kg Intake: Oral 780 240 180 Other: Voiding Method Toilet Toilet # Voids 0 2 1 - Exam - Constitutional General appearance: average body habitus, cooperative, disheveled, mild distress - EENT Eyes: EOMI, PERRLA, dentition normal, normal appearance ENT: normal oropharynx Ears: bilateral: normal - Neck Neck: normal ROM Carotids: bilateral: upstroke normal Thyroid: bilateral: normal size - Respiratory Respiratory: bilateral: diminished, prolonged expiration - Cardiovascular Rhythm: regular Heart sounds: normal: S1, S2 - Gastrointestinal General gastrointestinal: distended, soft - Integumentary Integumentary: normal, normal turgor - Neurologic Neurologic: CNII-XII intact - Musculoskeletal Musculoskeletal: gait normal, generalized weakness, strength equal bilaterally - Psychiatric Psychiatric: A&O x's 3, appropriate affect, intact judgment & insight - Labs CBC & Chem 7: 04/23/19 06:04 04/23/19 06:04 Labs: Abnormal Lab Results - Last 24 Hours (Table) 04/22/19 04/22/19 04/23/19 Range/Units 16:56 20:35 06:04 WBC (3.8-10.6) k/uL Neutrophils # (1.3-7.7) k/uL Lymphocytes # (1.0-4.8) k/uL Carbon Dioxide 31 H (22-30) mmol/L BUN 38 H (9-20) mg/dL Glucose 114 H (74-99) mg/dL POC Glucose (mg/dL) 134 H 121 H (75-99) mg/dL ALT 101 H (4-49) U/L 04/23/19 04/23/19 Range/Units 06:04 06:20 WBC 12.3 H (3.8-10.6) k/uL Neutrophils # 10.9 H (1.3-7.7) k/uL Lymphocytes # 0.9 L (1.0-4.8) k/uL Carbon Dioxide (22-30) mmol/L BUN (9-20) mg/dL Glucose (74-99) mg/dL POC Glucose (mg/dL) 114 H (75-99) mg/dL ALT (4-49) U/L Microbiology - Last 24 Hours (Table) 04/19/19 16:15 Blood Culture - Preliminary Blood No Growth after 72 hours Assessment and Plan Assessment: Severe congestive heart failure likely acute on chronic systolic heart failure ejection fraction only 20-25% COPD with acute exacerbation Small right-sided pleural effusion Extensive history of smoking and nicotine use Elevated troponin Plan: Agree with bronchodilator IV steroids Broad-spectrum antibiotics Optimize therapy for heart failure Cardiology have started patient on furosemide Reviewed results of echo Heart cath and angiogram Time with Patient: Greater than 30
[2019-04-23] MEDS ORDERED: VERAPAMIL 2.5 MG/ML 2 ML AMP ONE (14:16)
[2019-04-23] MEDS ORDERED: LIDOCAINE 1% INJ 10MG/ML (20 ML MDV) ONE (14:16)
--- NOTE | 2019-04-23 14:28 | P.PN ---
Subjective Progress Note Date: 04/23/19 this is a 58-year-old gentleman who presented to the hospital with symptoms of progressively worsening shortness of breath with associated chest discomfort. He does have a history of nicotine dependence, COPD, and states that he drinks 2 alcoholic beverages on a daily basis.patient's echocardiogram with Doppler study revealed an ejection fraction of 20-25% with global decrease in contractility. We increased his dose of IV Lasix yesterday he diuresed well through the night last night and overall is feeling significantly better today. Patient has been recommended today to undergo cardiac catheterization, the risks and the benefits were explained to the patient in detail and he is willing to proceed. This will be performed today by Dr. Lamont Thomas. Objective - Vital Signs Vital signs: Vital Signs Temp 97.5 F L 04/23/19 12:01 Pulse 90 04/23/19 12:07 Resp 20 04/23/19 12:01 BP 110/72 04/23/19 12:01 Pulse Ox 98 04/23/19 12:01 Intake & Output 04/22/19 04/23/19 04/23/19 18:59 06:59 18:59 Intake Total 780 240 180 Balance 780 240 180 Weight 76.3 kg Intake: Oral 780 240 180 Other: Voiding Method Toilet Toilet # Voids 0 2 1 - Exam PHYSICAL EXAMINATION: GENERAL:58-year-old gentleman in no acute distress at the time of my examination HEENT: Head is atraumatic, normocephalic. Pupils equal, round. Sclera anicteri c. Conjunctiva are clear. Mucous membranes of the mouth are moist. Neck is supple. There is no elevated jugular venous pressure.] bruit is heard. HEART EXAMINATION: [Heart S1, S2 normal. No murmur or gallop heard.] CHEST EXAMINATION:[ Lungs are clear to auscultation and precussion. No chest w all tenderness is noted on palpation or with deep breathing.] ABDOMEN: [ Soft, nontender. Bowel sounds are heard. No organomegaly noted]. EXTREMITIES:[ 2+ peripheral pulses with no evidence of peripheral edema and no calf tenderness noted]. NEUROLOGIC [patient is awake, alert and oriented ?-3.] . - Labs CBC & Chem 7: 04/23/19 06:04 04/23/19 06:04 Labs: Abnormal Lab Results - Last 24 Hours (Table) 04/22/19 04/22/19 04/23/19 Range/Units 16:56 20:35 06:04 WBC (3.8-10.6) k/uL Neutrophils # (1.3-7.7) k/uL Lymphocytes # (1.0-4.8) k/uL Carbon Dioxide 31 H (22-30) mmol/L BUN 38 H (9-20) mg/dL Glucose 114 H (74-99) mg/dL POC Glucose (mg/dL) 134 H 121 H (75-99) mg/dL ALT 101 H (4-49) U/L 04/23/19 04/23/19 Range/Units 06:04 06:20 WBC 12.3 H (3.8-10.6) k/uL Neutrophils # 10.9 H (1.3-7.7) k/uL Lymphocytes # 0.9 L (1.0-4.8) k/uL Carbon Dioxide (22-30) mmol/L BUN (9-20) mg/dL Glucose (74-99) mg/dL POC Glucose (mg/dL) 114 H (75-99) mg/dL ALT (4-49) U/L Microbiology - Last 24 Hours (Table) 04/19/19 16:15 Blood Culture - Preliminary Blood No Growth after 72 hours Assessment and Plan Plan: assessment and plan #1 systolic congestive heart failure acute on chronic #2 nicotine dependence #3 COPD #4 cardiomyopathy Patient has been recommended today to undergo cardiac catheterization by Dr. Lamont Thomas, the risks and benefits were explained to the patient in detail, this will be performed today. DNP note has been reviewed, I agree with a documented findings and plan of care. Patient was seen and examined.
[2019-04-23] MEDS ORDERED: IV FLUID CONTINUATION 1,000 ML IV ONE (14:30)
[2019-04-23] MEDS ORDERED: MIDAZOLAM 2 MG/2 ML VIAL IV ONE (14:32)
[2019-04-23] MEDS ORDERED: LIDOCAINE 1% INJ 10MG/ML (20 ML MDV) SQ ONE (14:35)
[2019-04-23] MEDS: VERAPAMIL SYRINGE (5 MG/10 ML) INTRAARTER ONE ×2 (14:39→14:48)
[2019-04-23] MEDS ORDERED: HEPARIN SODIUM 1,000 UN/ML (10ML VL) IV ONE (14:40)
[2019-04-23] MEDS ORDERED: IOPAMIDOL-370 100ML BTL INJ ONE (14:48)
[2019-04-23] MEDS ORDERED: SODIUM CHLORIDE 0.9% 1,000 ML IV SCH (15:10)
--- NOTE | 2019-04-23 16:06 | CC ---
CARDIAC CATHETERIZATION REPORT DATE OF SERVICE: 04/23/2019 PROCEDURE: Left heart catheterization and coronary angiography. PERFORMED BY: Dr. Sriram Thomas. Moderate conscious sedation time was 17 minutes. The patient was administered Versed. His oxygen saturation, hemodynamics and EKG were monitored closely. CLINICAL INFORMATION: Mr. Phil Yap is a 58-year-old gentleman with a history of smoking, COPD, who came to the hospital with increasing shortness of breath, was found to be in congestive heart failure. Ejection fraction was 25%. After stabilizing him, he was advised coronary angiography to rule out any obstructive CAD as a contributing factor for his cardiomyopathy. Risks, benefits, options, rationale were explained to the patient and family. PROCEDURE NOTE: Under local anesthesia and strict aseptic precautions, a 6-Bruneian introducer was placed in the right radial artery. Using 3.5 left and a 4.0 right Eloy catheters, I performed selective coronary angiography, checked LV pressures with the right catheter but did not do an LV gram. The sheath was taken out and a TR band applied as per protocol. Saturation in the fingers of the right hand was 97%. CARDIAC CATHETERIZATION FINDINGS: The left ventricular end-diastolic pressure was 24 mmHg without any gradient across the aortic valve. CORONARY ANGIOGRAPHY FINDINGS: RIGHT CORONARY ARTERY: Technically a nondominant vessel. It gives off acute marginal branch, has minor irregularities, 30% to 40%. Distally it is a small vessel that does not quite cross the crux. Nondominant RCA, minor irregularities, no significant disease. LEFT MAIN CORONARY ARTERY: Short, patent, disease-free vessel that bifurcates into LAD and circumflex. LEFT ANTERIOR DESCENDING CORONARY ARTERY: Good-caliber vessel gives off a large diagonal branch, a few small septal branches, runs all the way to the apex, supplies a sizable amount of myocardium. No significant disease. The diagonal branch has good caliber and distribution, has no significant disease. The septals are free of significant disease and the vessel runs all the way to the apex, supplies a fair amount of myocardium, and towards the apex the vessel is smaller in caliber, but no significant disease. Good-caliber, good-distribution LAD system. LEFT POSTERIOR CIRCUMFLEX CORONARY ARTERY: Dominant vessel. Gives off 2 obtuse marginal branches, one of which is larger, another one smaller, and distally it gives a PDA and PLV, both of which are free of significant disease. No significant disease in the dominant circumflex coronary artery. Left ventriculogram was not performed. FINAL IMPRESSION: This patient has significantly elevated filling pressures. No gradient across the aortic valve. A left-dominant system with no significant disease; only minor irregularities were noted. The patient therefore has nonischemic cardiomyopathy and COPD. Findings were discussed with the patient. RECOMMENDATIONS: Findings were discussed with the patient and family. We will optimize medical therapy and he is advised to refrain from alcohol and hopefully will be discharged the next 24 to 48 hours. MMODL / IJN: [id number] /
--- NOTE | 2019-04-23 16:38 | P.PN ---
Subjective Progress Note Date: 04/23/19 This is a 58-year-old gentleman admitted with acute CHF, cardiomyopathy, COPD, chest pain and multiple other medical issues. Diuresing well on Lasix IV push with 24-hour I&O reflecting a decrease in weight. Scheduled for cardiac catheterization today. Maintained on gentle IV fluid hydration, creatinine up to 1.23. Denies chest pain, palpitations or increasing shortness of breath. Objective - Vital Signs Vital signs: Vital Signs Temp 97.5 F L 04/23/19 12:01 Pulse 82 04/23/19 15:46 Resp 18 04/23/19 15:34 BP 110/72 04/23/19 12:01 Pulse Ox 97 04/23/19 15:34 Intake & Output 04/22/19 04/23/19 04/23/19 18:59 06:59 18:59 Intake Total 780 240 742 Balance 780 240 742 Weight 76.3 kg Intake: IV 100 Intake, IV Titration 462 Amount Sodium Chloride 0.9% 1, 462 000 ml In Empty Bag 1 bag @ 1 ML/KG/HR 76.3 mls/hr IV .[id number] ONE Rx#: [id number] Oral 780 240 180 Other: Voiding Method Toilet Toilet # Voids 0 2 1 - Exam PHYSICAL EXAM: VITAL SIGNS: As above GENERAL: Sitting up in bed, no acute distress HEENT: Conjunctivae normal. eyes normal. Oral mucosa moist NECK: No JVD. No thyroid enlargement. No LNs CARDIOVASCULAR: S1, S2 regular.. No murmur RESPIRATION: Breath sounds diminished in the bases. No rhonchi or crackles. No bronchial breathing. ABDOMEN: Soft, nontender . No guarding. no masses palpable. No ascites, No hepatosplenomegaly.Bowel sounds heard. LEGS: No edema. no swelling PSYCHIATRY: Alert and oriented X3, mood and affect normal. NERVOUS SYSTEM: Cranial N 2-12 grossly normal. Moves all 4 limbs. No focal deficits. Strength and sensation grossly intact.. Skin: no rash - Labs CBC & Chem 7: 04/23/19 06:04 04/23/19 06:04 Labs: Abnormal Lab Results - Last 24 Hours (Table) 04/22/19 04/22/19 04/23/19 Range/Units 16:56 20:35 06:04 WBC (3.8-10.6) k/uL Neutrophils # (1.3-7.7) k/uL Lymphocytes # (1.0-4.8) k/uL Carbon Dioxide 31 H (22-30) mmol/L BUN 38 H (9-20) mg/dL Glucose 114 H (74-99) mg/dL POC Glucose (mg/dL) 134 H 121 H (75-99) mg/dL ALT 101 H (4-49) U/L 04/23/19 04/23/19 Range/Units 06:04 06:20 WBC 12.3 H (3.8-10.6) k/uL Neutrophils # 10.9 H (1.3-7.7) k/uL Lymphocytes # 0.9 L (1.0-4.8) k/uL Carbon Dioxide (22-30) mmol/L BUN (9-20) mg/dL Glucose (74-99) mg/dL POC Glucose (mg/dL) 114 H (75-99) mg/dL ALT (4-49) U/L Microbiology - Last 24 Hours (Table) 04/19/19 16:15 Blood Culture - Preliminary Blood No Growth after 72 hours Assessment and Plan Assessment: Acute on chronic congestive heart failure, systolic dysfunction COPD Acute tracheobronchitis Cardiomyopathy, cardiac cath pending Nicotine dependence Plan: Continue on current medication regime ,monitoring and symptomatic treatment. Cardiac catheterization pending. Diuresing as per cardiology. Close monitoring of renal function with repeat labs ordered for a.m. Discharge planning in progress in the next 24-48 hrs. pending cardiology clearance. The impression and plan of care has been dictated as directed. : I performed a history and examination of this patient, discussed the same with the dictator. I agree with the dictator's note ,documented as a scribe. Any additional findings or plans will be noted.
[2019-04-23 16:39] LABS: Glucose,Whole Blood 137 mg/dL (75-99)
[2019-04-23] MEDS: AZITHROMYCIN 500 MG TAB PO SCH (17:11)
[2019-04-23 21:01] LABS: Glucose,Whole Blood 93 mg/dL (75-99)
[2019-04-24] MEDS: IPRATROPIUM-ALBUTEROL 3 ML NEB INHALATION SCH ×6 (03:57→22:55)
[2019-04-24 06:13] LABS: Glucose,Whole Blood 115 mg/dL (75-99)
[2019-04-24 06:20] LABS: Basophils % (A) 0 %; Eosinophils % (A) 0 %; HCT 43.1 % (39.0-53.0); HGB 13.3 gm/dL (13.0-17.5); Lymphocytes % (A) 10 %; MCH 29.4 pg (25.0-35.0); MCHC 30.8 g/dL (31.0-37.0); MCV 95.4 fL (80.0-100.0); Mean Platelet Volume 8.6; Monocytes # (A) 0.4 k/uL (0-1.0); Monocytes % (A) 5 %; Neutrophils # (A) 7.7 k/uL (1.3-7.7); Neutrophils % (A) 84 %; Platelet Count 251 k/uL (150-450); RBC 4.52 m/uL (4.30-5.90); RDW 13.1 % (11.5-15.5); WBC 9.3 k/uL (3.8-10.6)
[2019-04-24 06:34] LABS: Calcium 9.6 mg/dL (8.4-10.2); Potassium 4.3 mmol/L (3.5-5.1)
[2019-04-24] MEDS: METOPROLOL TARTRATE 50 MG TAB PO SCH ×2 (08:33→20:32)
[2019-04-24] MEDS: HEPARIN SODIUM,PORCINE 5,000 UNIT/ML 1 ML VIAL SQ SCH ×2 (08:34→20:32)
[2019-04-24] MEDS: FUROSEMIDE 10 MG/ML 4 ML VIAL IV SCH (08:34)
[2019-04-24] MEDS: methylPREDNISolone SOD SUCCI 40 MG/ML 1 ML VIAL IV SCH ×2 (08:34→20:32)
[2019-04-24] MEDS: HYDROcodone/APAP 5-325MG 1 EACH TAB PO PRN ×2 (08:42→15:41)
[2019-04-24 11:52] LABS: Glucose,Whole Blood 93 mg/dL (75-99)
[2019-04-24] MEDS: LISINOPRIL 5 MG TAB PO SCH (12:04)
[2019-04-24] MEDS: SPIRONOLACTONE 25 MG TAB PO SCH (12:04)
--- NOTE | 2019-04-24 14:46 | P.PN ---
Subjective Progress Note Date: 04/24/19 Principal diagnosis: Likely component of congestive heart failure unknown ejection fraction COPD with acute exacerbation Small right-sided pleural effusion Extensive history of smoking and nicotine use Elevated troponin 04/24/2019 patient seen eval reexamined during the rounds labs reviewed medications reviewed cardiac cath findings reviewed 04/23/2019, patient seen eval examined during the rounds shortness of breath is improved patient continue be diuresis, patient is scheduled for cardiac cath and angiogram later on this afternoon respiratory status overall stable we will start titrating steroids down in next 24 hours 04/22/2019, patient seen eval examined during the rounds labs reviewed medications reviewed care plan discussed with the patient at length shortness of breath is slightly improved with the Lasix patient had echocardiogram revealed ejection fraction 20%, cardiovascular services following, chest x-ray reviewed performed today trace pleural effusion the congestive heart failure changes noted This is a 58-year-old male with extensive history of smoking and nicotine use, he has stopped smoking about 10 days ago due to shortness of breath along with shortness of breath he started experiencing increased swelling of the lower extremity, patient came into the hospital a chest x-ray was unremarkable however computed tomography scan of the chest negative for for pulmonary embolism but did show small right pleural effusion and interstitial edema, patient has been evaluated by cardiovascular services, patient has been started by cardiology services IV Lasix every 8 hour was seems to be helping, in addition patient has been on bronchodilator IV steroids for COPD exacerbation Objective - Vital Signs Vital signs: Vital Signs Temp 97.6 F 04/24/19 11:36 Pulse 67 04/24/19 11:36 Resp 20 04/24/19 11:36 BP 102/76 04/24/19 11:36 Pulse Ox 96 04/24/19 11:36 Intake & Output 04/23/19 04/24/19 04/24/19 18:59 06:59 18:59 Intake Total 964 600 120 Output Total 625 1575 Balance 339 -975 120 Weight 73 kg Intake: IV 100 Intake, IV Titration 462 600 Amount Sodium Chloride 0.9% 1, 600 000 ml @ 75 mls/hr IV . [id number] [facility] Rx#:[id number] Sodium Chloride 0.9% 1, 462 000 ml In Empty Bag 1 bag @ 1 ML/KG/HR 76.3 mls/hr IV .Q13H7M ONE Rx#: [id number] Oral 402 120 Output: Urine 625 1575 Other: Voiding Method Toilet # Voids 1 1 3 - Exam - Constitutional General appearance: average body habitus, cooperative, disheveled, mild distress - EENT Eyes: EOMI, PERRLA, dentition normal, normal appearance ENT: normal oropharynx Ears: bilateral: normal - Neck Neck: normal ROM Carotids: bilateral: upstroke normal Thyroid: bilateral: normal size - Respiratory Respiratory: bilateral: diminished, prolonged expiration - Cardiovascular Rhythm: regular Heart sounds: normal: S1, S2 - Gastrointestinal General gastrointestinal: distended, soft - Integumentary Integumentary: normal, normal turgor - Neurologic Neurologic: CNII-XII intact - Musculoskeletal Musculoskeletal: gait normal, generalized weakness, strength equal bilaterally - Psychiatric Psychiatric: A&O x's 3, appropriate affect, intact judgment & insight - Labs CBC & Chem 7: 04/24/19 05:31 04/24/19 05:31 Labs: Abnormal Lab Results - Last 24 Hours (Table) 04/23/19 04/24/19 04/24/19 Range/Units 16:37 05:31 05:31 MCHC 30.8 L (31.0-37.0) g/dL Carbon Dioxide 31 H (22-30) mmol/L BUN 43 H (9-20) mg/dL Glucose 107 H (74-99) mg/dL POC Glucose (mg/dL) 137 H (75-99) mg/dL 04/24/19 Range/Units 06:11 MCHC (31.0-37.0) g/dL Carbon Dioxide (22-30) mmol/L BUN (9-20) mg/dL Glucose (74-99) mg/dL POC Glucose (mg/dL) 115 H (75-99) mg/dL Microbiology - Last 24 Hours (Table) 04/19/19 16:15 Blood Culture - Preliminary Blood No Growth after 96 hours Assessment and Plan Assessment: Severe congestive heart failure likely acute on chronic systolic heart failure ejection fraction only 20-25% COPD with acute exacerbation Small right-sided pleural effusion Extensive history of smoking and nicotine use Elevated troponin Plan: Agree with bronchodilator IV steroids Broad-spectrum antibiotics Optimize therapy for heart failure Cardiology have started patient on furosemide Reviewed results of echo Heart cath and angiogram results and reports reviewed Time with Patient: Greater than 30
--- NOTE | 2019-04-24 14:55 | PN ---
PROGRESS NOTE This is a gentleman with a cardiomyopathy, ejection fraction of less than 25%, in addition to smoking and history of COPD with some exacerbation. With aggressive diuresis, he has improved a lot. His cardiac cath yesterday did not reveal any significant obstructive CAD. His cath site is clean and dry with a good pulse. I am recommending that we switch him from IV to oral Lasix, increase activity, and possible discharge tomorrow. Patient does consume alcohol on a regular basis. I have advised him to completely quit alcohol altogether and after 3 months, we will re-evaluate his LV function. He is doing well on current medical therapy. Will switch him from IV to oral Lasix. Vitals are stable. JVD 1 cm, no carotid bruit. S1-S2 heard normally. No significant murmurs. Heart rate is good. Lungs are clear. Abdomen is soft. Lower extremity edema has resolved. Right radial cath site is clean and dry with a good pulse. MMODL / IJN: [id number] /
[2019-04-24] MEDS: FUROSEMIDE 40 MG TAB PO SCH (15:41)
--- NOTE | 2019-04-24 16:31 | P.PN ---
Subjective Progress Note Date: 04/24/19 This is a 58-year-old gentleman admitted with acute CHF, cardiomyopathy, COPD, chest pain and multiple other medical issues. Diuresing well on Lasix IV push with 24-hour I&O reflecting a decrease in weight. Scheduled for cardiac catheterization today. Maintained on gentle IV fluid hydration, creatinine up to 1.23. Denies chest pain, palpitations or increasing shortness of breath. 04/24/2019 underwent cardiac catheterization yesterday reporting minimal disease, no significant obstructive CAD, EF less than 25%. Diuresed well on Lasix IV push with 24-hour I&O reflecting a negative fluid balance. Creatinine 1.15. Objective - Vital Signs Vital signs: Vital Signs Temp 98.2 F 04/24/19 15:00 Pulse 84 04/24/19 15:00 Resp 20 04/24/19 15:00 BP 104/66 04/24/19 15:00 Pulse Ox 95 04/24/19 15:00 Intake & Output 04/23/19 04/24/19 04/24/19 18:59 06:59 18:59 Intake Total 964 600 120 Output Total 625 1575 Balance 339 -975 120 Weight 73 kg Intake: IV 100 Intake, IV Titration 462 600 Amount Sodium Chloride 0.9% 1, 600 000 ml @ 75 mls/hr IV . [id number] [facility] Rx#:[id number] Sodium Chloride 0.9% 1, 462 000 ml In Empty Bag 1 bag @ 1 ML/KG/HR 76.3 mls/hr IV .Q13H7M [facility] Rx#: [id number] Oral 402 120 Output: Urine 625 1575 Other: Voiding Method Toilet # Voids 1 1 3 - Exam PHYSICAL EXAM: VITAL SIGNS: As above GENERAL: Sitting up in bed, no acute distress HEENT: Conjunctivae normal. eyes normal. Oral mucosa moist NECK: No JVD. No thyroid enlargement. No LNs CARDIOVASCULAR: S1, S2 regular.. No murmur RESPIRATION: Breath sounds diminished in the bases. No rhonchi or crackles. No wheezing ABDOMEN: Soft, nontender . No guarding. no masses palpable. Bowel sounds heard. LEGS: No edema. no swelling PSYCHIATRY: Alert and oriented X3, mood and affect normal. NERVOUS SYSTEM: Cranial N 2-12 grossly normal. Moves all 4 limbs. No focal deficits. Strength and sensation grossly intact.. Skin: no rash - Labs CBC & Chem 7: 04/24/19 05:31 04/24/19 05:31 Labs: Abnormal Lab Results - Last 24 Hours (Table) 04/23/19 04/24/19 04/24/19 Range/Units 16:37 05:31 05:31 MCHC 30.8 L (31.0-37.0) g/dL Carbon Dioxide 31 H (22-30) mmol/L BUN 43 H (9-20) mg/dL Glucose 107 H (74-99) mg/dL POC Glucose (mg/dL) 137 H (75-99) mg/dL 04/24/19 Range/Units 06:11 MCHC (31.0-37.0) g/dL Carbon Dioxide (22-30) mmol/L BUN (9-20) mg/dL Glucose (74-99) mg/dL POC Glucose (mg/dL) 115 H (75-99) mg/dL Microbiology - Last 24 Hours (Table) 04/19/19 16:15 Blood Culture - Preliminary Blood No Growth after 96 hours Assessment and Plan Assessment: Acute on chronic congestive heart failure, systolic dysfunction COPD Acute tracheobronchitis Cardiomyopathy, cardiac cath pending Nicotine dependence Plan: Continue on current medication regime ,monitoring and symptomatic treatment. Lasix converted to oral .maintain nebulized bronchodilators, antibiotics and steroids .Close monitoring of renal function with repeat labs ordered for a.m. Discharge planning in progress for tomorrow pending cardiology and pulmonary clearance. The impression and plan of care has been dictated as directed. : I performed a history and examination of this patient, discussed the same with the dictator. I agree with the dictator's note ,documented as a scribe. Any additional findings or plans will be noted.
[2019-04-24 16:56] LABS: Glucose,Whole Blood 135 mg/dL (75-99)
[2019-04-24] MEDS: AZITHROMYCIN 500 MG TAB PO SCH (17:17)
[2019-04-24 22:14] LABS: Glucose,Whole Blood 132 mg/dL (75-99)
[2019-04-25 00:16] VITALS: RESP 18
[2019-04-25] MEDS: IPRATROPIUM-ALBUTEROL 3 ML NEB INHALATION SCH ×3 (04:03→11:45)
[2019-04-25 04:10] VITALS: TEMP 98
[2019-04-25 06:08] LABS: Glucose,Whole Blood 110 mg/dL (75-99)
[2019-04-25 07:07] LABS: African American GFR (CKD) >90 (>60 ml/min/1.73 sqM); Anion Gap 7 mmol/L; Blood Urea Nitrogen 39 mg/dL (9-20); Calcium 9.6 mg/dL (8.4-10.2); Carbon Dioxide 30 mmol/L (22-30); Chloride 101 mmol/L (98-107); Glucose 104 mg/dL (74-99); Non-African American GFR(CKD) 87 (>60 ml/min/1.73 sqM); Potassium 4.8 mmol/L (3.5-5.1); Sodium 138 mmol/L (137-145)
[2019-04-25] MEDS: LISINOPRIL 5 MG TAB PO SCH (08:51)
[2019-04-25] MEDS: METOPROLOL TARTRATE 50 MG TAB PO SCH (08:51)
[2019-04-25] MEDS: FUROSEMIDE 40 MG TAB PO SCH (08:51)
[2019-04-25] MEDS: methylPREDNISolone SOD SUCCI 40 MG/ML 1 ML VIAL IV SCH (08:51)
[2019-04-25] MEDS: SPIRONOLACTONE 25 MG TAB PO SCH (08:51)
[2019-04-25] MEDS: HEPARIN SODIUM,PORCINE 5,000 UNIT/ML 1 ML VIAL SQ SCH (08:52)
[2019-04-25] MEDS ORDERED: predniSONE 20 MG TAB PO SCH (10:00)
--- NOTE | 2019-04-25 10:38 | PN ---
PROGRESS NOTE Mr. Yap is in sinus rhythm. He has what seems to be nonischemic cardiomyopathy, breathing well. He also has a combination of smoking and COPD with exacerbation. I am going to taper his prednisone, gave a tapering schedule of 10 mg for 3 days, 5 mg for the next 3 days and then 5 mg every other day for about 5 doses and after that he will stop prednisone and see Pulmonology as well as his primary care physician. From a cardiac standpoint, he has a nonischemic cardiomyopathy. No obstructive CAD. He is on a good combination of medicines and his heart failure has resolved. I will see him in 2 weeks. He is advised to refrain from alcohol and I will follow his LV function noninvasively. He is also advised to quit smoking. Medications were reviewed. Discharge instructions were given and I will see the patient in the next 10 to 14 days. TOÑO / CURTIS: [id number] /
[2019-04-25 11:26] VITALS: BMI 24.8
[2019-04-25 11:54] VITALS: PULSE 84
[2019-04-25 12:22] LABS: Glucose,Whole Blood 141 mg/dL (75-99)
[2019-04-25 13:23] VITALS: BP 109/70
--- NOTE | 2019-04-25 15:13 | P.DS ---
Providers Date of admission: 04/19/19 18:04 Expected date of discharge: 04/25/19 Attending physician: Felix Burgos Consults: 04/19/19 18:03 Consult Physician Urgent Consulting Provider: [facility] Consult Reason/Comments: NSTEMI Do you want consulting provider notified?: Yes 04/20/19 21:06 Consult Physician Routine Consulting Provider: Hugh Wang Consult Reason/Comments: copd/rll infiltrate Do you want consulting provider notified?: Yes Primary care physician: Felix Burgos [facility] Course: Final Diagnoses: Acute on chronic congestive heart failure, systolic dysfunction Acute COPD exacerbation Acute tracheobronchitis Cardiomyopathy, cardiac cath pending Nicotine dependence Hospital course:This is a 58-year-old gentleman admitted with acute CHF, ca rdiomyopathy, COPD, chest pain and multiple other medical issues. Diuresing well on Lasix IV push with 24-hour I&O reflecting a decrease in weight. Scheduled for cardiac catheterization today. Maintained on gentle IV fluid hydration, creatinine up to 1.23. Denies chest pain, palpitations or increasing shortness of breath. 04/24/2019 underwent cardiac catheterization yesterday reporting minimal disease, no significant obstructive CAD, EF less than 25%. Diuresed well on Lasix IV push with 24-hour I&O reflecting a negative fluid balance. Creatinine 1.15. Significant clinical improvement. Cleared by cardiology for discharge. Patient is being discharged home in a stable condition with guarded prognosis pending pulmonary clearance. EXAM: GENERAL: Alert and oriented 3, no acute distress CARDIOVASCULAR: S1, S2 regular.No murmur RESPIRATION: Breath sounds diminished in the bases. No rhonchi or crackles. No wheezing ABDOMEN: Soft, nontender .Bowel sounds heard. NERVOUS SYSTEM: No focal deficits. The impression and plan of care has been dictated as directed. : I performed a history and examination of this patient, discussed the same with the dictator. I agree with the dictator's note ,documented as a scribe. Any additional findings or plans will be noted. Patient Condition at Discharge: Stable Plan - Discharge Summary Discharge Rx Participant: No New Discharge Prescriptions: New Spironolactone [Aldactone] 25 mg PO DAILY #30 tab Furosemide [Lasix] 40 mg PO BID@0900,1600 #60 tab Metoprolol Tartrate [Lopressor] 50 mg PO BID #60 tab predniSONE 10 mg PO DIRECTED #7 tab guaiFENesin SYRUP 100MG/5ML [Robitussin] 200 mg PO Q6H PRN cup PRN Reason: Cough Lisinopril [Zestril] 5 mg PO DAILY #30 tab Cefuroxime Axetil [Ceftin] 500 mg PO BID #10 tab Continue Albuterol Sulfate [Proair Hfa] 2 puff INHALATION RT-Q6H PRN #1 inhaler PRN Reason: Shortness Of Breath Albuterol Nebulized [Ventolin Nebulized] 2.5 mg INHALATION RT-Q6H PRN #120 neb PRN Reason: Shortness Of Breath Tiotropium [place] [Spiriva] 1 cap INHALATION RT-DAILY #1 inh Discharge Medication List Albuterol Nebulized [Ventolin Nebulized] 2.5 mg INHALATION RT-Q6H PRN #120 neb 04/25/19 [Rx] Albuterol Sulfate [Proair Hfa] 2 puff INHALATION RT-Q6H PRN #1 inhaler 04/25/19 [Rx] Cefuroxime Axetil [Ceftin] 500 mg PO BID #10 tab 04/25/19 [Rx] Furosemide [Lasix] 40 mg PO BID@0900,1600 #60 tab 04/25/19 [Rx] Lisinopril [Zestril] 5 mg PO DAILY #30 tab 04/25/19 [Rx] Metoprolol Tartrate [Lopressor] 50 mg PO BID #60 tab 04/25/19 [Rx] Spironolactone [Aldactone] 25 mg PO DAILY #30 tab 04/25/19 [Rx] Tiotropium [place] [Spiriva] 1 cap INHALATION RT-DAILY #1 inh 04/25/19 [Rx] guaiFENesin SYRUP 100MG/5ML [Robitussin] 200 mg PO Q6H PRN cup 04/25/19 [Rx] predniSONE 10 mg PO DIRECTED #7 tab 04/25/19 [Rx] Follow up Appointment(s)/Referral(s): Tigre Thomas MD [STAFF PHYSICIAN] - 05/01/19 1:30 pm Felix Burgos MD [Primary Care Provider] - 05/02/19 1:00 pm (Will need some paperwork filled out prior to appt, office will send it to you. ) Hugh Wang MD [STAFF PHYSICIAN] - 1 Week Ambulatory/Diagnostic Orders: Complete Blood Count w/diff [LAB.AMB] Time Frame: 3 Days, Location: None Selected Patient Instructions/Handouts: *Surgery [facility] - After Heart Catheterization - Plaster Helper Instructions, COPD (Chronic Obstructive Pulmonary Disease) (DC) Discharge Disposition: HOME SELF-CARE
== END 2019-04-25 13:48 | disposition home or self-care (01) | DRG 287 ==
LOC: EC 15:15 → 3SCARD 18:04
PROVIDERS: ADMIT Family Medicine; ATTEND Family Medicine
PROC: B2111ZZ Fluoroscopy of Multiple Coronary Arteries using Low Osmolar Contrast (ICD-10-PCS; 2019-04-23)
PROC: 4A023N7 Measurement of Cardiac Sampling and Pressure, Left Heart, Percutaneous Approach (ICD-10-PCS; principal; 2019-04-23 09:05)
DX: I50.23 Acute on chronic systolic (congestive) heart failure (principal); J44.1 Chronic obstructive pulmonary disease with (acute) exacerbation; J44.0 Chronic obstructive pulmonary disease with (acute) lower respiratory infection; I42.8 Other cardiomyopathies; J20.9 Acute bronchitis, unspecified; M19.90 Unspecified osteoarthritis, unspecified site; Z82.5 Family history of asthma and other chronic lower respiratory diseases; Z90.49 Acquired absence of other specified parts of digestive tract; F17.210 Nicotine dependence, cigarettes, uncomplicated
CPT/HCPCS: 36415; 71046; 71275; 80048; 80053; 81003; 83605; 83690; 83735; 83880; 84484; 85025; 85379; 85610; 85730; 87040; 87502; 93005; 93306; 93458; 94640; 94760; 96365; 96368; 96375; 96376; 99285

== ENCOUNTER → 2019-05-01 | Outpatient (CLI) | payer OTHER ==
[2019-05-01 10:46] LABS: Basophils # (A) 0.1 k/uL (0-0.2); Basophils % (A) 1 %; Eosinophils # (A) 0.2 k/uL (0-0.7); Eosinophils % (A) 2 %; HCT 52.9 % (39.0-53.0); HGB 16.2 gm/dL (13.0-17.5); Lymphocytes # (A) 1.4 k/uL (1.0-4.8); Lymphocytes % (A) 13 %; MCH 29.4 pg (25.0-35.0); MCHC 30.6 g/dL (31.0-37.0); Mean Platelet Volume 7.7; Monocytes # (A) 0.5 k/uL (0-1.0); Monocytes % (A) 5 %; Neutrophils # (A) 8.9 k/uL (1.3-7.7); Neutrophils % (A) 80 %; Platelet Count 288 k/uL (150-450); RBC 5.51 m/uL (4.30-5.90); RDW 13.2 % (11.5-15.5); WBC 11.2 k/uL (3.8-10.6)
[2019-05-01 16:20] LABS: African American GFR (CKD) 96.4 (60.0-200.0); Anion Gap 6.8 mmol/L (4.00-12.00); Carbon Dioxide 27.2 mmol/L (21.6-31.8); Non-African American GFR(CKD) 83.2 (60.0-200.0); Potassium 3.9 mmol/L (3.5-5.5)
== END | disposition home or self-care (01) ==
LOC: LABWHC1 10:27
PROVIDERS: ATTEND Nurse Practitioner
DX: J44.9 Chronic obstructive pulmonary disease, unspecified (principal); I50.9 Heart failure, unspecified
CPT/HCPCS: 36415; 80048; 85025

== ENCOUNTER → 2019-05-17 | Outpatient (CLI) | payer OTHER ==
[2019-05-18 00:31] LABS: African American GFR (CKD) 96.4 (60.0-200.0); Anion Gap 7.1 mmol/L (4.00-12.00); Calcium 9.2 mg/dL (8.7-10.3); Carbon Dioxide 27.9 mmol/L (21.6-31.8); Magnesium 2.1 mg/dL (1.5-2.4); Non-African American GFR(CKD) 83.2 (60.0-200.0); Potassium 4.7 mmol/L (3.5-5.5)
== END | disposition home or self-care (01) ==
LOC: LABWHC1 16:43
PROVIDERS: ATTEND Nurse Practitioner
DX: I42.0 Dilated cardiomyopathy (principal)
CPT/HCPCS: 36415; 80048; 83735

== ENCOUNTER → 2019-05-31 | Outpatient (CLI) | payer OTHER ==
--- NOTE | 2019-05-31 12:49 | XR ---
EXAMINATION TYPE: XR chest 2V DATE OF EXAM: 05/31/2019 COMPARISON: 04/22/2019 INDICATION: Pneumonia, cough TECHNIQUE: Frontal and lateral views of the chest are obtained. FINDINGS: The heart size is normal. The pulmonary vasculature is normal. The lungs are clear. IMPRESSION: 1. No acute pulmonary process.
== END | disposition home or self-care (01) ==
LOC: RADXRMAIN 11:31
PROVIDERS: ATTEND Internal Medicine Sleep Medicine
DX: J18.9 Pneumonia, unspecified organism (principal)
CPT/HCPCS: 71046

== ENCOUNTER 2020-02-25 00:54 | Inpatient (IN) | payer OTHER ==
[2020-02-25] MEDS ORDERED: ASPIRIN 81 MG PO STA (01:16)
[2020-02-25] MEDS ORDERED: methylPREDNISolone SOD SUCCI 125 MG/2 ML VIAL IV STA (01:17)
[2020-02-25] MEDS ORDERED: IPRATROPIUM-ALBUTEROL 3 ML NEB INHALATION STA (01:18)
--- NOTE | 2020-02-25 01:19 | ED ---
Chest Pain HPI - General Chief Complaint: Chest Pain Stated Complaint: Chest Pain, SOB Time Seen by Provider: 02/25/20 01:04 Source: patient Mode of arrival: ambulatory Limitations: no limitations - History of Present Illness Initial Comments: 59-year-old male with history of COPD presents emergency Department with chief complaint of chest pain shortness of breath. Patient reports the symptoms started about 4 days ago with pain across the chest. Also reports increasing shortness of breath. States that he is not oxygen dependent but does use a neb ulizer daily. States he gets some symptomatic relief although diminishes quickly. Patient reports 2-3 episodes of hemoptysis over the last 2 days. he also reports non productive cough and sore thoroat over the last few days. denies loss of taste or smell. He denies any diaphoretic episodes, light headedness, dizziness, nausea, vomiting. denies covid exposure - Related Data Previous Rx's Medication Instructions Recorded Albuterol Nebulized [Ventolin 2.5 mg INHALATION RT-Q6H PRN #120 04/25/19 Nebulized] neb Albuterol Sulfate [Proair Hfa] 2 puff INHALATION RT-Q6H PRN #1 04/25/19 inhaler Cefuroxime Axetil [Ceftin] 500 mg PO BID #10 tab 04/25/19 Furosemide [Lasix] 40 mg PO BID@0900,1600 #60 tab 04/25/19 Metoprolol Tartrate [Lopressor] 50 mg PO BID #60 tab 04/25/19 Spironolactone [Aldactone] 25 mg PO DAILY #30 tab 04/25/19 Tiotropium [place] [Spiriva] 1 cap INHALATION RT-DAILY #1 inh 04/25/19 guaiFENesin SYRUP 100MG/5ML 200 mg PO Q6H PRN cup 04/25/19 [Robitussin] lisinopriL [Zestril] 5 mg PO DAILY #30 tab 04/25/19 predniSONE 10 mg PO DIRECTED #7 tab 04/25/19 Allergies Allergy/AdvReac Type Severity Reaction Status Date / Time No Known Allergies Allergy Verified 02/25/20 01:03 Review of Systems ROS Statement: Those systems with pertinent positive or pertinent negative responses have been documented in the HPI. ROS Other: All systems not noted in ROS Statement are negative. EKG Findings - EKG Comments: EKG Findings:: Sinus tachycardia. Ventricular rate 117, OH 138, QRS 92, QTC 438. Past Medical History Past Medical History: COPD Additional Past Medical History / Comment(s): arthritis, "shakes", syncope History of Any Multi-Drug Resistant Organisms: None Reported Past Surgical History: Appendectomy Past Anesthesia/Blood Transfusion Reactions: No Reported Reaction Past Psychological History: No Psychological Hx Reported Smoking Status: Current every day smoker Past Alcohol Use History: Occasional Past Drug Use History: None Reported - Past Family History Mother Family Medical History: Cancer Additional Family Medical History / Comment(s): Cancer in jaw Father Family Medical History: COPD General Exam Limitations: no limitations General appearance: alert, in no apparent distress Head exam: Present: atraumatic, normocephalic, normal inspection Eye exam: Present: normal appearance, PERRL, EOMI Pupils: Present: normal accommodation ENT exam: Present: normal exam, normal oropharynx, mucous membranes moist, TM's normal bilaterally, normal external ear exam Neck exam: Present: normal inspection, full ROM. Absent: tenderness Respiratory exam: Present: wheezes (Diffuse bilateral wheezing.). Absent: normal lung sounds bilaterally, respiratory distress, rales, rhonchi, stridor, chest wall tenderness, accessory muscle use, decreased breath sounds, prolonged expiratory Cardiovascular Exam: Present: regular rate, normal rhythm, normal heart sounds. Absent: bradycardia, tachycardia, systolic murmur, diastolic murmur GI/Abdominal exam: Present: soft. Absent: distended, tenderness, guarding Extremities exam: Present: normal inspection, full ROM, normal capillary refill, pedal edema (+1 pitting edema bilaterally), other (+2 ulnar and radial pulses bilaterally.). Absent: tenderness, joint swelling, calf tenderness Back exam: Present: normal inspection, full ROM. Absent: tenderness, CVA tenderness (R), CVA tenderness (L) Neurological exam: Present: alert, oriented X3, normal gait Psychiatric exam: Present: normal affect, normal mood Skin exam: Present: warm, dry, intact, normal color Course Vital Signs 02/25/20 02/25/20 02/25/20 01:03 01:34 01:36 Temperature 98 F Pulse Rate 117 H 110 H 99 Respiratory 24 20 Rate Blood Pressure 149/111 140/102 O2 Sat by Pulse 99 100 Oximetry 1102/25/20 02/25/20 01:43 01:48 02:23 Temperature Pulse Rate 112 H 106 H 98 Respiratory 20 22 Rate Blood Pressure 145/100 129/85 O2 Sat by Pulse 99 97 Oximetry Chest Pain MDM - MDM 59-year-old male with history of smoking and COPD presenting to the emergency department with a chief complaint of chest pain or shortness of breath. On initial evaluation, patient is tachycardic with blood pressure 143/103. He is wheezing bilaterally. Patient was given 125 Solu-Medrol and DuoNeb. on Reevaluation, no significant improvement in symptoms. Chest x-ray revealed increased pulmonary vascularity compared to most recent imaging. Patient had a cardiac cath performed in April of this year which revealed nonischemic car diomyopathy. CBC and CMP is unremarkable. Coags within normal limits. D-dimer negative. Patient has a BNP of 10.5K. Troponin 0.055. Patient given aspirin, nitro and morphine for pain. Patient will be given 40 mg of IV Lasix. He will be admitted for further medical management. No heparinization. Case discussed with Dr Cooley Admitting is Dr Max Cardiology on consult Disposition Clinical Impression: CHF (congestive heart failure), Acute non-ST elevation myocardial infarction (NSTEMI), Pedal edema, Elevated brain natriuretic peptide (BNP) level Disposition: ADMITTED IP TO THIS HOSP Condition: Fair Is patient prescribed a controlled substance at d/c from ED?: No Time of Disposition: 02:35
[2020-02-25 01:38] LABS: Basophils # (A) 0.1 k/uL (0-0.2); Basophils % (A) 1 %; Eosinophils # (A) 0.4 k/uL (0-0.7); Eosinophils % (A) 4 %; HCT 43.1 % (39.0-53.0); HGB 13.4 gm/dL (13.0-17.5); Lymphocytes # (A) 2.1 k/uL (1.0-4.8); Lymphocytes % (A) 23 %; MCH 30.8 pg (25.0-35.0); MCV 99.2 fL (80.0-100.0); Mean Platelet Volume 8.2; Monocytes # (A) 0.4 k/uL (0-1.0); Monocytes % (A) 4 %; Neutrophils % (A) 67 %; Platelet Count 327 k/uL (150-450); RBC 4.35 m/uL (4.30-5.90); RDW 13.1 % (11.5-15.5); WBC 8.9 k/uL (3.8-10.6)
[2020-02-25 01:49] LABS: ALT 56 U/L (4-49); AST 58 U/L (17-59); African American GFR (CKD) >90 (>60 ml/min/1.73 sqM); Albumin 4.5 g/dL (3.5-5.0); Alkaline Phosphatase 92 U/L (38-126); Anion Gap 9 mmol/L; Blood Urea Nitrogen 17 mg/dL (9-20); Calcium 9.6 mg/dL (8.4-10.2); Carbon Dioxide 25 mmol/L (22-30); Chloride 105 mmol/L (98-107); Glucose 85 mg/dL (74-99); Non-African American GFR(CKD) 82 (>60 ml/min/1.73 sqM); Potassium 4.4 mmol/L (3.5-5.1); Sodium 139 mmol/L (137-145); Total Bilirubin 0.5 mg/dL (0.2-1.3)
--- NOTE | 2020-02-25 01:51 | XR ---
EXAM: XR Chest, 2 Views CLINICAL HISTORY: ITS.REASON XR Reason: Chest Pain TECHNIQUE: Frontal and lateral views of the chest. COMPARISON: May 31, 2019 FINDINGS: Lungs: Pulmonary vasculature is more prominent than previous with increased interstitial densities centrally possibly representing pulmonary edema or interstitial pneumonitis. Pleural space: Unremarkable. No pneumothorax. Heart: The cardiac silhouette is mildly enlarged. Mediastinum: Unremarkable. Bones/joints: Mild to moderate osteophytosis in the lower thoracic spine. IMPRESSION: Pulmonary vasculature is more prominent than previous with increased interstitial densities centrally possibly representing pulmonary edema or interstitial pneumonitis.
[2020-02-25] MEDS ORDERED: NITROGLYCERIN SL TABS 0.4 MG TAB SUBLINGUAL STA (01:55)
[2020-02-25 01:58] LABS: D-Dimer 0.43 mg/L FEU (<0.60); INR 0.9 (<1.2); Partial Thromboplastin Time 24.5 sec (22.0-30.0); Prothrombin Time 9.7 sec (9.0-12.0)
[2020-02-25] MEDS ORDERED: MORPHINE SULFATE 4 MG/ML SYRINGE IVP STA (02:00)
[2020-02-25] MEDS ORDERED: NITROGLYCERIN SL TABS 0.4 MG TAB SUBLINGUAL PRN (02:25)
[2020-02-25] MEDS ORDERED: FUROSEMIDE 10 MG/ML 4 ML VIAL IV STA (02:30)
--- NOTE | 2020-02-25 09:11 | P.CRDCN ---
History of Present Illness History of present illness: HISTORY OF PRESENTING ILLNESS This is a pleasant 59-year-old male past medical history significant for nonischemic cardiomyopathy, chronic nicotine dependence, COPD, nonobstructive coronary artery disease and chronic nicotine dependence. He follows in the office with Dr. Thomas. We have been asked to see in consultation for shortness of breath. Patient states for the previous 4 days he has noticed some increasing shortness of breath and chest tightness. Shortness of breath has been getting progressively worse. His chest tightness is in the mid-sternal portion that did not radiate through to the back, down the arms, into the neck or jaw. It is respirophasic at times but mostly has been constant. He denies dizziness, palpitations, nausea, vomiting or diaphoresis. He states he's been compliant with his medication and has had no recent changes in his diet or activity. He underwent cardiac catheterization 04/2019 revealed only minor irregularities of the RCA 30-40%, otherwise normal coronary arteries. Most recent echocardiogram obtain 04/2019 revealed impaired LV systolic function with EF 20-25%, grade I diastolic dysfunction, mild MR, mild TR and mild PH with RVSP mmHg. DIAGNOSTICS EKG reveals sinus tachycardia heart rate 117 with T-wave inversion precordial lateral leads. Chest xray increase interstitial densities likely representing pulmonary edema. Laboratory reviewed, CBC unremarkable, d-dimer 0.43, sodium 139, potassium 4.4, creatinine 1.01, magnesium 2.0, troponin 0.055, 0.047 and [id number]. Current cardiac medications include lisinopril 5 mg daily, aldactone 25 mg daily, lopressor 50 mg BID and lasix 40 mg BID. REVIEW OF SYSTEMS At the time of my exam: CONSTITUTIONAL: Denies fever or chills. CARDIOVASCULAR: Complains of shortness of breath and chest tightness. Denies orthopnea, PND or palpitations. RESPIRATORY: Denies cough. GASTROINTESTINAL: Denies abdominal pain, diarrhea, constipation, nausea or vomiting. MUSCULOSKELETAL: Denies myalgias. NEUROLOGIC: Denies numbness, tingling or weakness. ENDOCRINE: Denies fatigue, weight change, polydipsia or polyurina. GENITOURINARY: Denies burning, hematuria or urgency with micturation. HEMATOLOGIC: Denies history of anemia or bleeding. PHYSICAL EXAMINATION Blood pressure 129/75 heart rate 90 afebrile and maintaining oxygen saturation on room air. CONSTITUTIONAL: No apparent distress. HEENT: Head is normocephalic. Pupils are equal, round. Sclerae anicteric. Mucous membranes of the mouth are moist. No JVD. No carotid bruit. CHEST EXAMINATION: Bibasilar rales, expiratory wheezes, scattered rhonchi and diminished bilaterally. No chest wall tenderness is noted on palpation or with deep breathing. HEART EXAMINATION: Regular rate and rhythm. S1, S2 heard. No murmurs, gallops or rub. ABDOMEN: Soft, nontender. Positive bowel sounds. EXTREMITIES: 2+ peripheral pulses, no lower extremity edema and no calf tenderness. NEUROLOGIC EXAMINATION: Patient is awake, alert and oriented x3. 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 Diurese with IV lasix 60 mg IV BID. Resume aldactone, lopressor and lisiopril as previously ordered. Decrease aspirin to 81 mg daily. Follow renal function and electrolytes daily. Document accurate intake and output along with daily weights. Likely has exacerbation of COPD as well. Further recommendations to follow based on clinical course. Smoking cessation discussed. Thank you kindly for this consultation. Nurse Practitioner note has been reviewed, I agree with a documented findings and plan of care. Patient was seen and examined. Past Medical History Past Medical History: COPD Additional Past Medical History / Comment(s): arthritis, "shakes", syncope History of Any Multi-Drug Resistant Organisms: None Reported Past Surgical History: Appendectomy Past Anesthesia/Blood Transfusion Reactions: No Reported Reaction Past Psychological History: No Psychological Hx Reported Smoking Status: Current every day smoker Past Alcohol Use History: Occasional Past Drug Use History: None Reported - Past Family History Mother Family Medical History: Cancer Additional Family Medical History / Comment(s): Cancer in jaw Father Family Medical History: COPD Medications and Allergies Home Medications Medication Instructions Recorded Confirmed Type Albuterol Nebulized [Ventolin 2.5 mg INHALATION RT-Q6H PRN #120 04/25/19 Rx Nebulized] neb Albuterol Sulfate [Proair Hfa] 2 puff INHALATION RT-Q6H PRN #1 04/25/19 Rx inhaler Cefuroxime Axetil [Ceftin] 500 mg PO BID #10 tab 04/25/19 Rx Furosemide [Lasix] 40 mg PO BID@0900,1600 #60 tab 04/25/19 Rx Metoprolol Tartrate [Lopressor] 50 mg PO BID #60 tab 04/25/19 Rx Spironolactone [Aldactone] 25 mg PO DAILY #30 tab 04/25/19 Rx Tiotropium Guinda [Spiriva] 1 cap INHALATION RT-DAILY #1 inh 04/25/19 Rx guaiFENesin SYRUP 100MG/5ML 200 mg PO Q6H PRN cup 04/25/19 Rx [Robitussin] lisinopriL [Zestril] 5 mg PO DAILY #30 tab 04/25/19 Rx predniSONE 10 mg PO DIRECTED #7 tab 04/25/19 Rx Allergies Allergy/AdvReac Type Severity Reaction Status Date / Time No Known Allergies Allergy Verified 02/25/20 01:03 Physical Exam Vitals: Vital Signs Temp Pulse Resp BP Pulse Ox 02/25/20 06:17 90 18 129/75 100 02/25/20 04:39 105 H 18 129/85 98 02/25/20 03:17 99 18 129/88 99 02/25/20 02:23 98 22 129/85 97 02/25/20 01:48 106 H 20 145/100 99 02/25/20 01:43 112 H 02/25/20 01:36 99 20 140/102 100 02/25/20 01:34 110 H 02/25/20 01:03 98 F 117 H 24 149/111 99 Intake and Output 02/24/20 02/25/20 02/25/20 22:59 06:59 14:59 Other: Weight 68.039 kg Results 02/25/20 01:24 02/25/20 01:24 Cardiac Enzymes 02/25/20 02/25/20 02/25/20 Range/Units 01:24 01:24 05:35 AST 58 (17-59) U/L Troponin I 0.055 H* 0.047 H* (0.000-0.034) ng/mL Coagulation 02/25/20 Range/Units 01:24 PT 9.7 (9.0-12.0) sec APTT 24.5 (22.0-30.0) sec CBC 02/25/20 Range/Units 01:24 WBC 8.9 (3.8-10.6) k/uL RBC 4.35 (4.30-5.90) m/uL Hgb 13.4 (13.0-17.5) gm/dL Hct 43.1 (39.0-53.0) % Plt Count 327 (150-450) k/uL Comprehensive Metabolic Panel 02/25/20 Range/Units 01:24 Sodium 139 (137-145) mmol/L Potassium 4.4 (3.5-5.1) mmol/L Chloride 105 (98-107) mmol/L Carbon Dioxide 25 (22-30) mmol/L BUN 17 (9-20) mg/dL Creatinine 1.01 (0.66-1.25) mg/dL Glucose 85 (74-99) mg/dL Calcium 9.6 (8.4-10.2) mg/dL AST 58 (17-59) U/L ALT 56 H (4-49) U/L Alkaline Phosphatase 92 (38-126) U/L Total Protein 8.0 (6.3-8.2) g/dL Albumin 4.5 (3.5-5.0) g/dL Current Medications Generic Name Dose Route Start Last Admin Trade Name Freq PRN Reason Stop Dose Admin Aspirin 325 mg 02/26/20 09:00 Aspirin 325 Mg Tab PO DAILY GONZÁLEZ Nitroglycerin 0.4 mg 02/25/20 02:25 Nitroglycerin Sl Tabs 0.4 Mg Tab SUBLINGUAL Q5M PRN Chest Pain Intake and Output 02/24/20 02/25/20 02/25/20 22:59 06:59 14:59 Other: Weight 68.039 kg 02/25/20 01:24 02/25/20 01:24
[2020-02-25] MEDS: FUROSEMIDE 10 MG/ML 10 ML VIAL IV SCH ×2 (09:40→20:25)
[2020-02-25] MEDS: lisinopriL 5 MG TAB PO SCH (09:43)
[2020-02-25] MEDS: SPIRONOLACTONE 25 MG TAB PO SCH (09:43)
[2020-02-25] MEDS: METOPROLOL TARTRATE 50 MG TAB PO SCH ×2 (09:43→20:26)
--- NOTE | 2020-02-25 12:00 | ECHOF ---
Referral Reason:sob, cp MEASUREMENTS -------- HEIGHT: 170.2 cm WEIGHT: 68.0 kg BP: IVSd: 1.0 cm (0.6 - 1.1) LVIDd: 6.0 cm (3.9 - 5.3) LVPWd: 1.0 cm (0.6 - 1.1) IVSs: 1.1 cm LVIDs: 5.5 cm LVPWs: 1.0 cm LAESV Index (A-L): 38.19 ml/m Ao Diam: 4.0 cm (2.0 - 3.7) AV Cusp: 1.5 cm (1.5 - 2.6) LA Diam: 2.9 cm (2.7 - 3.8) MV EXCURSION: 14.924 mm (> 18.000) MV EF SLOPE: 145 mm/s (70 - 150) EPSS: 4.4 cm MV E Carloz: 0.71 m/s MV DecT: 106 ms MV A Carloz: 0.78 m/s MV E/A Ratio: 0.92 RAP: 5.00 mmHg RVSP: 27.00 mmHg FINDINGS -------- This was a technically good study. The left ventricle is mildly dilated. Left ventricular wall thickness is normal. There is severe global hypokinesis of LV . Overall left ventricular systolic function is severely impaired with, an EF < 20%. Increased LAP Grade 3 Diastolic Dysfunction. The right ventricle is normal in size. LA is moderately dilated 34-39 ml/m2 The right atrial size is normal. The aortic valve is trileaflet and appears structurally normal. The mitral valve is normal. The mitral valve leaflets are mildly thickened. Mild mitral regurgita tion is present. The tricuspid valve appears structurally normal. Mild tricuspid regurgitation present. Right vent ricular systolic pressure is normal at < 35 mmHg. There is no pulmonic regurgitation present. The aortic root size is normal. Normal inferior vena cava with normal inspiratory collapse consistent with estimated right atrial pre ssure of 5 mmHg. There is no pericardial effusion. CONCLUSIONS -------- 1. The left ventricle is mildly dilated. 2. Left ventricular wall thickness is normal. 3. There is severe global hypokinesis of LV . 4. Overall left ventricular systolic function is severely impaired with, an EF < 20%. 5. Increased LAP Grade 3 Diastolic Dysfunction. 6. LA is moderately dilated 34-39 ml/m2 7. The mitral valve leaflets are mildly thickened. 8. Mild mitral regurgitation is present. 9. Mild tricuspid regurgitation present. 10. There is no pericardial effusion. LEAD VULCANIZING OPERATOR: Maya Knox RDCS
[2020-02-25] MEDS ORDERED: IPRATROPIUM-ALBUTEROL 3 ML NEB INHALATION PRN (14:32)
[2020-02-25] MEDS: IPRATROPIUM-ALBUTEROL 3 ML NEB INHALATION SCH ×2 (14:47→20:33)
--- NOTE | 2020-02-25 18:52 | P.CNPUL ---
History of Present Illness Reason for consult: dyspnea, cough Chief complaint: Shortness of breath wheezing is started about 4 days ago History of present illness: This is a 59-year-old male who was seen evaluated examined patient has extensive history of COPD, patient started having cough shortness of breath up started about 4 days ago his his sputum has been mixed with blood for the last 2 days, it is was in the form of streak, he admits intermittent chest pain across, Chest x-ray significant for pulmonary vasculature interstitial changes, cannot exclude pulmonary edema or pneumonia, global hypokinesia is present, LA is dilated along with regurgitation present in mitral area and tricuspid area, patient is on home nebulizer and MDIs for COPD on arrival he was noted to have diffuse wheezing however responded well with bronchodilators and IV steroids which was given in the emergency department, patient noted to have BNP over 10,000 with elevated troponins, covid 19 is negative Review of Systems All systems: negative Past Medical History Past Medical History: COPD, Osteoarthritis (OA) Additional Past Medical History / Comment(s): arthritis, "shakes", syncope History of Any Multi-Drug Resistant Organisms: None Reported Past Surgical History: Appendectomy Past Anesthesia/Blood Transfusion Reactions: No Reported Reaction Past Psychological History: No Psychological Hx Reported Smoking Status: Current every day smoker Past Alcohol Use History: None Reported, Rare Additional Past Alcohol Use History / Comment(s): history of ETOH abuse, dose not drink any alcohol as of last year Past Drug Use History: None Reported - Past Family History Mother Family Medical History: Cancer Additional Family Medical History / Comment(s): Cancer in jaw Father Family Medical History: COPD Medications and Allergies Home Medications Medication Instructions Recorded Confirmed Type Albuterol Nebulized [Ventolin 2.5 mg INHALATION RT-Q6H PRN #120 04/25/19 02/25/20 Rx Nebulized] neb Albuterol Sulfate [Proair Hfa] 2 puff INHALATION RT-Q6H PRN #1 04/25/19 02/25/20 Rx inhaler Metoprolol Tartrate [Lopressor] 50 mg PO BID #60 tab 04/25/19 02/25/20 Rx Tiotropium Stewart [Spiriva] 1 cap INHALATION RT-DAILY #1 inh 04/25/19 02/25/20 Rx lisinopriL [Zestril] 5 mg PO DAILY #30 tab 04/25/19 02/25/20 Rx ARIPiprazole [Abilify] 2 mg PO DAILY 02/25/20 02/25/20 History Acetaminophen [Tylenol] 325 mg PO Q6H PRN 02/25/20 02/25/20 History Escitalopram [Lexapro] 20 mg PO DAILY 02/25/20 02/25/20 History Furosemide [Lasix] 40 mg PO DAILY 02/25/20 02/25/20 History Spironolactone [Aldactone] 12.5 mg PO DAILY 02/25/20 02/25/20 History Allergies Allergy/AdvReac Type Severity Reaction Status Date / Time No Known Allergies Allergy Verified 02/25/20 11:28 Physical Exam Vitals: Vital Signs Temp Pulse Pulse Resp BP BP Pulse Ox 02/25/20 15:35 98.4 F 86 18 104/67 94 L 02/25/20 15:02 98 02/25/20 14:47 96 02/25/20 14:18 72 18 102/57 92 L 02/25/20 14:06 20 02/25/20 13:47 82 18 111/79 97 02/25/20 09:00 99 18 120/86 98 02/25/20 06:17 90 18 129/75 100 02/25/20 04:39 105 H 18 129/85 98 02/25/20 03:17 99 18 129/88 99 02/25/20 02:23 98 22 129/85 97 02/25/20 01:48 106 H 20 145/100 99 02/25/20 01:43 112 H 02/25/20 01:36 99 20 140/102 100 02/25/20 01:34 110 H 02/25/20 01:03 98 F 117 H 24 149/111 99 Intake and Output 02/25/20 02/25/20 02/25/20 06:59 14:59 22:59 Other: Weight 68.039 kg 75.2 kg - Constitutional General appearance: average body habitus, disheveled - EENT Eyes: PERRLA Ears: bilateral: normal - Neck Neck: normal ROM Carotids: bilateral: upstroke normal Thyroid: bilateral: normal size - Respiratory Respiratory: bilateral: diminished, wheezing - Cardiovascular Rhythm: regular Heart sounds: normal: S1, S2 - Integumentary Integumentary: normal turgor - Neurologic Neurologic: CNII-XII intact - Musculoskeletal Musculoskeletal: gait normal, generalized weakness, strength equal bilaterally - Psychiatric Psychiatric: A&O x's 3, appropriate affect, intact judgment & insight Results - Laboratory Findings CBC and BMP: 02/25/20 01:24 02/25/20 01:24 PT/INR, D-dimer PT 9.7 sec (9.0-12.0) 02/25/20 01:24 INR 0.9 (<1.2) 02/25/20 01:24 D-Dimer 0.43 mg/L FEU (<0.60) 02/25/20 01:24 Abnormal lab findings: Abnormal Labs 02/25/20 02/25/20 02/25/20 01:24 01:24 05:35 ALT 56 H Troponin I 0.055 H* 0.047 H* - Diagnostic Findings Chest x-ray: report reviewed, image reviewed Assessment and Plan Assessment: Hemoptysis appears to be related to pulmonary edema however other pulmonary etiologies cannot be excluded Acute on chronic systolic heart failure Acute pulmonary edema Acute COPD exacerbation Interstitial pneumonia Elevated troponin /Non-ST segment elevated TN History of extensive COPD Plan: We'll put patient on IV steroids breathing treatments and antibiotics, further evaluation per cardiovascular services, will monitor patient closely for hemoptysis likely due to airway inflammation or due to pulmonary edema, will hold on doing a computed tomography scan with IV contrast given patient may be needing a coronary angiogram Time with Patient: Greater than 30
[2020-02-25 20:05] LABS: Glucose,Whole Blood 161 mg/dL (75-99)
[2020-02-25] MEDS: INSULIN ASPART (NovoLOG) 100 UNIT/ML VIAL SQ SCH (20:25)
[2020-02-25] MEDS: BUDESONIDE 0.5 MG/2 ML NEBU INHALATION SCH (20:33)
[2020-02-25] MEDS: methylPREDNISolone SOD SUCCI 40 MG/ML 1 ML VIAL IV SCH (23:09)
[2020-02-26 06:01] LABS: Glucose,Whole Blood 136 mg/dL (75-99)
[2020-02-26] MEDS: INSULIN ASPART (NovoLOG) 100 UNIT/ML VIAL SQ SCH ×4 (06:15→22:01)
[2020-02-26 08:33] LABS: Calcium 9.9 mg/dL (8.4-10.2); Potassium 4.5 mmol/L (3.5-5.1)
[2020-02-26] MEDS: methylPREDNISolone SOD SUCCI 40 MG/ML 1 ML VIAL IV SCH ×3 (08:55→23:37)
[2020-02-26] MEDS: ASPIRIN 81 MG PO SCH (08:56)
[2020-02-26] MEDS: METOPROLOL TARTRATE 50 MG TAB PO SCH ×2 (08:57→20:18)
[2020-02-26] MEDS: SPIRONOLACTONE 25 MG TAB PO SCH (08:57)
[2020-02-26] MEDS: FUROSEMIDE 10 MG/ML 10 ML VIAL IV SCH ×2 (08:57→20:18)
[2020-02-26] MEDS ORDERED: ASPIRIN 325 MG TAB PO SCH (09:00)
[2020-02-26] MEDS: lisinopriL 5 MG TAB PO SCH (09:02)
[2020-02-26] MEDS: IPRATROPIUM-ALBUTEROL 3 ML NEB INHALATION SCH ×4 (09:50→20:49)
[2020-02-26] MEDS: BUDESONIDE 0.5 MG/2 ML NEBU INHALATION SCH ×2 (09:50→20:49)
[2020-02-26 11:18] LABS: Glucose,Whole Blood 158 mg/dL (75-99)
--- NOTE | 2020-02-26 11:28 | P.PN ---
Subjective Progress Note Date: 02/26/20 Principal diagnosis: Hemoptysis appears to be related to pulmonary edema and airway inflammation however other pulmonary etiologies cannot be excluded, resolved now Acute on chronic systolic heart failure Acute pulmonary edema Acute COPD exacerbation Interstitial pneumonia Elevated troponin /Non-ST segment elevated NV History of extensive COPD 02/26/2020, patient seen eval reexamined during the rounds labs reviewed medications reviewed care plan discussed Is still have intermittent wheezing, hemoptysis however resolved now, shortness of breath is there, denies any chest pain, will continue current plan of care with IV steroids breathing treatment antibiotics This is a 59-year-old male who was seen evaluated examined patient has extensive history of COPD, patient started having cough shortness of breath up started about 4 days ago his his sputum has been mixed with blood for the last 2 days, it is was in the form of streak, he admits intermittent chest pain across, Chest x-ray significant for pulmonary vasculature interstitial changes, cannot exclude pulmonary edema or pneumonia, global hypokinesia is present, LA is dilated along with regurgitation present in mitral area and tricuspid area, patient is on home nebulizer and MDIs for COPD on arrival he was noted to have diffuse wheezing however responded well with bronchodilators and IV steroids which was given in the emergency department, patient noted to have BNP over 10,000 with elevated troponins, covid 19 is negative Objective - Vital Signs Vital signs: Vital Signs Temp 98.4 F 02/26/20 08:50 Pulse 86 02/26/20 10:05 Resp 18 02/26/20 08:50 BP 110/56 02/26/20 08:50 Pulse Ox 94 L 02/26/20 08:50 Intake & Output 02/25/20 02/26/20 02/26/20 18:59 06:59 18:59 Intake Total 200 240 Balance 200 240 Weight 75.2 kg Intake: Oral 200 240 - Exam - Constitutional General appearance: average body habitus, disheveled - EENT Eyes: PERRLA Ears: bilateral: normal - Neck Neck: normal ROM Carotids: bilateral: upstroke normal Thyroid: bilateral: normal size - Respiratory Respiratory: bilateral: diminished, wheezing - Cardiovascular Rhythm: regular Heart sounds: normal: S1, S2 - Integumentary Integumentary: normal turgor - Neurologic Neurologic: CNII-XII intact - Musculoskeletal Musculoskeletal: gait normal, generalized weakness, strength equal bilaterally - Psychiatric Psychiatric: A&O x's 3, appropriate affect, intact judgment & insight - Labs CBC & Chem 7: 02/25/20 01:24 02/26/20 07:46 Labs: Abnormal Lab Results - Last 24 Hours (Table) 02/25/20 02/26/20 02/26/20 Range/Units 20:04 06:00 07:46 BUN 33 H (9-20) mg/dL Glucose 132 H (74-99) mg/dL POC Glucose (mg/dL) 161 H 136 H (75-99) mg/dL Cholesterol 203 H (<200) mg/dL LDL Cholesterol, Calc 112 H (0-99) mg/dL HDL Cholesterol 79 H (40-60) mg/dL 02/26/20 Range/Units 11:05 BUN (9-20) mg/dL Glucose (74-99) mg/dL POC Glucose (mg/dL) 158 H (75-99) mg/dL Cholesterol (<200) mg/dL LDL Cholesterol, Calc (0-99) mg/dL HDL Cholesterol (40-60) mg/dL Assessment and Plan Assessment: Hemoptysis appears to be related to pulmonary edema however other pulmonary etiologies cannot be excluded Acute on chronic systolic heart failure Acute pulmonary edema Acute COPD exacerbation Interstitial pneumonia Elevated troponin /Non-ST segment elevated NV History of extensive COPD Plan: We'll put patient on IV steroids breathing treatments and antibiotics, further evaluation per cardiovascular services, will monitor patient closely for hemoptysis likely due to airway inflammation or due to pulmonary edema, improved now, will will do a noncontrast computed tomography Time with Patient: Greater than 30
--- NOTE | 2020-02-26 13:25 | P.PN ---
Subjective Progress Note Date: 02/26/20 HISTORY OF PRESENT ILLNESS: Patient examined this morning the bedside. He states his chest discomfort has resolved. Continues to report some shortness of breath but states it has improved since yesterday. Pulmonary was consulted yesterday afternoon and the patient was started on breathing treatments and IV steroids. patient remains on Lasix 60 mg IV twice a day. Creatinine today 1.08. Fluid balance of the last 24 hours is +200 mL. echocardiogram completed revealed ejection fraction less than 20%, mild mitral regurgitation, and mild tricuspid regurgitation. PHYSICAL EXAM: VITAL SIGNS: Reviewed. GENERAL: Well-developed in no acute distress. NECK: Supple. No JVD or thyromegaly LUNGS: Respirations even and unlabored. Lungs with expiratory wheezing noted throughout. HEART: Regular rate and rhythm. S1 and S2 heard. EXTREMITIES: Normal range of motion. No clubbing or cyanosis. Peripheral pulses intact. 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 Signing provider agrees with the documented findings, assessment, and plan of care. Objective - Vital Signs Vital signs: Vital Signs Temp 98.4 F 02/26/20 08:50 Pulse 86 02/26/20 10:05 Resp 18 02/26/20 08:50 BP 110/56 02/26/20 08:50 Pulse Ox 94 L 02/26/20 08:50 Intake & Output 02/25/20 02/26/20 02/26/20 18:59 06:59 18:59 Intake Total 200 240 Balance 200 240 Weight 75.2 kg Intake: Oral 200 240 - Labs CBC & Chem 7: 02/25/20 01:24 02/26/20 07:46 Labs: Abnormal Lab Results - Last 24 Hours (Table) 02/25/20 02/26/20 02/26/20 Range/Units 20:04 06:00 07:46 BUN 33 H (9-20) mg/dL Glucose 132 H (74-99) mg/dL POC Glucose (mg/dL) 161 H 136 H (75-99) mg/dL Cholesterol 203 H (<200) mg/dL LDL Cholesterol, Calc 112 H (0-99) mg/dL HDL Cholesterol 79 H (40-60) mg/dL 02/26/20 Range/Units 11:05 BUN (9-20) mg/dL Glucose (74-99) mg/dL POC Glucose (mg/dL) 158 H (75-99) mg/dL Cholesterol (<200) mg/dL LDL Cholesterol, Calc (0-99) mg/dL HDL Cholesterol (40-60) mg/dL
--- NOTE | 2020-02-26 15:14 | CT ---
EXAMINATION TYPE: CT chest wo con DATE OF EXAM: 02/26/2020 COMPARISON: 04/20/2019 HISTORY: hemoptysis CT DLP: 371.9 mGycm, Automated exposure control for dose reduction was used. CONTRAST: Performed injected with 0 mL of Isovue 300. TECHNIQUE: Axial images were obtained at 5 mm thick sections. Reconstructed images are reviewed on [employer] computer in the coronal plane. FINDINGS: Portion of the thyroid visualized is normal. No suspicious lung nodules or focal infiltrates are present. Previous pleural effusion is resolved. S ome streak opacity in the posterior right lung baser most likely is atelectasis. Follow-up for the 6 mm thickening however can be performed in 6 months. No enlarged mediastinal or hilar adenopathy is evident. There are scattered small mediastinal lymph n odes. A few small left axillary lymph nodes are noted. The ascending aorta diameter at the level of the main pulmonary artery is 3.2 cm. The main pulmonary artery diameter at the bifurcation is 2.8 cm . Coronary artery calcification is present. Limited CT sections are obtained through the upper abdomen. Previous ascites has resolved. A few nono bstructing left mid renal stones are present. IMPRESSIONS: 1. No suspicious acute changes. 2. Some linear thickening up to 6 mm is in the posterior lateral right lung base may be related atele ctasis. Recommend a follow-up CT chest 3-6 months for reevaluation.
--- NOTE | 2020-02-26 16:44 | PN ---
PROGRESS NOTE A 59-year-old white male seen with systolic CHF. He has some atelectasis and no suspicious changes in his CAT scan. He is being treated for systolic heart failure, COPD. Chest discomfort is resolved. His breathing has improved since yesterday. He is on steroids, breathing treatments, IV Lasix 60 b.i.d., creatinine 1.08. Echo shows EF less than 20%. Vital signs reviewed. CARDIOVASCULAR: S1, S2. EXTREMITIES: No cyanosis, clubbing, or edema. 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 Switch IV Lasix to oral soon. Continue wean steroids, updraft treatments. PROGNOSIS: Guarded. TOÑO / KIMN: [id number] /
[2020-02-26 17:01] LABS: Glucose,Whole Blood 103 mg/dL (75-99)
[2020-02-26 20:59] LABS: Glucose,Whole Blood 157 mg/dL (75-99)
[2020-02-27 06:30] LABS: Glucose,Whole Blood 144 mg/dL (75-99)
[2020-02-27] MEDS: INSULIN ASPART (NovoLOG) 100 UNIT/ML VIAL SQ SCH ×4 (06:44→20:29)
[2020-02-27] MEDS: methylPREDNISolone SOD SUCCI 40 MG/ML 1 ML VIAL IV SCH ×3 (08:14→23:18)
[2020-02-27] MEDS: lisinopriL 5 MG TAB PO SCH (08:15)
[2020-02-27] MEDS: ASPIRIN 81 MG PO SCH (08:15)
[2020-02-27] MEDS: METOPROLOL TARTRATE 50 MG TAB PO SCH ×2 (08:15→20:38)
[2020-02-27] MEDS: FUROSEMIDE 10 MG/ML 10 ML VIAL IV SCH (08:15)
[2020-02-27] MEDS: SPIRONOLACTONE 25 MG TAB PO SCH (08:15)
[2020-02-27] MEDS ORDERED: ALPRAZolam 0.25 MG TAB PO PRN (08:20)
[2020-02-27] MEDS ORDERED: SODIUM CHLORIDE 0.9% 1,000 ML in EMPTY BAG 1 BAG IV ONE (08:20)
[2020-02-27] MEDS ORDERED: ALPRAZolam 0.5 MG TAB PO PRN (08:20)
[2020-02-27] MEDS ORDERED: ASPIRIN 325 MG TAB PO STA (08:20)
[2020-02-27] MEDS ORDERED: NITROGLYCERIN SL TABS 0.4 MG TAB SUBLINGUAL PRN (08:20)
[2020-02-27] MEDS ORDERED: ATORVASTATIN 80 MG TAB PO STA (08:20)
[2020-02-27] MEDS: BUDESONIDE 0.5 MG/2 ML NEBU INHALATION SCH ×2 (09:00→19:29)
[2020-02-27] MEDS: IPRATROPIUM-ALBUTEROL 3 ML NEB INHALATION SCH ×4 (09:01→19:30)
[2020-02-27 09:33] LABS: Calcium 9.9 mg/dL (8.4-10.2); Potassium 4.7 mmol/L (3.5-5.1)
--- NOTE | 2020-02-27 10:21 | PN ---
PROGRESS NOTE Mr. Yap is a 59-year-old male with a known history of chronic tobacco use, history of coronary artery disease, non significant by cardiac catheterization in April of this year, history of cardiomyopathy that was nonischemic, who presented with symptoms of progressive dyspnea and symptoms of chest discomfort. He had minimal troponin elevation. His breathing is much better at this time. He denies any chest pain. He denies any dizziness. He still has some dyspnea although improved. His EKG revealed new T-wave inversion anteriorly, different from his admitting EKG. He continues to be at this time on aspirin once a day, Lasix 60 mg IV q.12 hours, lisinopril 5 mg daily, metoprolol tartrate 50 mg twice a day and spironolactone 25 mg daily. PHYSICAL EXAMINATION: Blood pressure 105/60 with a heart rate in the 70. LUNGS: A few expiratory wheezes. HEART: Regular rate and rhythm, S1, S2. No S3. No rub. ABDOMEN: Soft, nontender. EXTREMITIES: No edema. LAB DATA: Revealed BUN and creatinine 33 and 1.8, potassium 4.5. His LDL is 112. IMPRESSION: 1. Cardiomyopathy with new EKG changes, rule out progression of disease. 2. Exacerbation of COPD. 3. History of tobacco use. 4. History of hypertension. 5. Hyperlipidemia. RECOMMENDATION: I will switch him to oral diuretics. He will be scheduled to undergo cardiac catheterization tomorrow by Dr. Thomas. I have discussed with the patient the rationale behind that as well as the risks and complication and he is full understanding and agreement. Depending on the results of the cardiac catheterization, further recommendation will be made. MMODL / IJN: [id number] /
--- NOTE | 2020-02-27 11:16 | P.PN ---
Subjective Progress Note Date: 02/27/20 Principal diagnosis: Hemoptysis appears to be related to pulmonary edema and airway inflammation however other pulmonary etiologies cannot be excluded, resolved now Acute on chronic systolic heart failure Acute pulmonary edema Acute COPD exacerbation Interstitial pneumonia Elevated troponin /Non-ST segment elevated IN History of extensive COPD 02/27/2020, patient seen eval examined during the rounds labs reviewed medications reviewed care plan discussed, cough shortness of breath still there but slightly better compared to yesterday, continue to get breathing treatment and steroids seems to be helping no hemoptysis anymore is present 02/26/2020, patient seen eval reexamined during the rounds labs reviewed medications reviewed care plan discussed Is still have intermittent wheezing, hemoptysis however resolved now, shortness of breath is there, denies any chest pain, will continue current plan of care with IV steroids breathing treatment antibiotics This is a 59-year-old male who was seen evaluated examined patient has extensive history of COPD, patient started having cough shortness of breath up started about 4 days ago his his sputum has been mixed with blood for the last 2 days, it is was in the form of streak, he admits intermittent chest pain across, Chest x-ray significant for pulmonary vasculature interstitial changes, cannot exclude pulmonary edema or pneumonia, global hypokinesia is present, LA is dilated along with regurgitation present in mitral area and tricuspid area, patient is on home nebulizer and MDIs for COPD on arrival he was noted to have diffuse wheezing however responded well with bronchodilators and IV steroids which was given in the emergency department, patient noted to have BNP over 10,000 with elevated troponins, covid 19 is negative Objective - Vital Signs Vital signs: Vital Signs Temp 97.7 F 02/27/20 08:12 Pulse 84 02/27/20 09:15 Resp 16 02/27/20 08:12 BP 105/67 02/27/20 08:12 Pulse Ox 97 02/27/20 08:12 Intake & Output 02/26/20 02/27/20 02/27/20 18:59 06:59 18:59 Intake Total 720 240 240 Output Total 350 Balance 720 -110 240 Weight 95 kg Intake: IV 10 Invasive Line 1 10 Oral 720 240 230 Output: Urine 350 - Exam - Constitutional General appearance: average body habitus, disheveled - EENT Eyes: PERRLA Ears: bilateral: normal - Neck Neck: normal ROM Carotids: bilateral: upstroke normal Thyroid: bilateral: normal size - Respiratory Respiratory: bilateral: diminished, wheezing - Cardiovascular Rhythm: regular Heart sounds: normal: S1, S2 - Integumentary Integumentary: normal turgor - Neurologic Neurologic: CNII-XII intact - Musculoskeletal Musculoskeletal: gait normal, generalized weakness, strength equal bilaterally - Psychiatric Psychiatric: A&O x's 3, appropriate affect, intact judgment & insight - Labs CBC & Chem 7: 02/25/20 01:24 02/27/20 07:56 Labs: Abnormal Lab Results - Last 24 Hours (Table) 02/26/20 02/26/20 02/26/20 Range/Units 11:05 16:35 20:56 BUN (9-20) mg/dL POC Glucose (mg/dL) 158 H 103 H 157 H (75-99) mg/dL 02/27/20 02/27/20 Range/Units 06:28 07:56 BUN 43 H (9-20) mg/dL POC Glucose (mg/dL) 144 H (75-99) mg/dL Assessment and Plan Assessment: Hemoptysis appears to be related to pulmonary edema however other pulmonary etiologies cannot be excluded Acute on chronic systolic heart failure Acute pulmonary edema Acute COPD exacerbation Interstitial pneumonia Elevated troponin /Non-ST segment elevated IN History of extensive COPD Plan: We'll put patient on IV steroids breathing treatments and antibiotics, further evaluation per cardiovascular services, will monitor patient closely for hemoptysis likely due to airway inflammation or due to pulmonary edema, improved now, will will do a noncontrast computed tomography Time with Patient: Greater than 30
[2020-02-27 12:12] LABS: Glucose,Whole Blood 127 mg/dL (75-99)
[2020-02-27] MEDS: FUROSEMIDE 40 MG TAB PO SCH (16:00)
--- NOTE | 2020-02-27 17:25 | PN ---
PROGRESS NOTE This patient is a 59-year-old white male who is going to have apparently a heart catheterization done tomorrow morning by Cardiology. He had a catheterization in April of this year. He has a history of cardiomyopathy, nonischemic. He had troponin elevation. Breathing better. EKG shows T-wave inversion anteriorly, deferred from his admitting EKG so a heart catheterization tomorrow. Lungs are clear. CARDIOVASCULAR: S1, S2. HEMATOLOGY: Negative Homans. PSYCH: Fair mood and affect. PLAN: Resume his home medicines. Continue on IV Lasix, lisinopril, metoprolol, spironolactone. Heart catheterization in the morning, then possible discharge. MMODL / IJN: [id number] /
[2020-02-27 17:27] LABS: Glucose,Whole Blood 136 mg/dL (75-99)
[2020-02-27] MEDS: ESCITALOPRAM 20 MG TAB PO SCH (17:46)
[2020-02-27] MEDS: ARIPiprazole 2 MG TAB PO SCH (17:46)
[2020-02-27 20:16] LABS: Glucose,Whole Blood 125 mg/dL (75-99)
[2020-02-28] MEDS: ASPIRIN 81 MG PO SCH (05:01)
[2020-02-28] MEDS: ATORVASTATIN 40 MG TAB PO SCH (05:10)
[2020-02-28] MEDS: INSULIN ASPART (NovoLOG) 100 UNIT/ML VIAL SQ SCH ×4 (05:43→20:44)
[2020-02-28] MEDS ORDERED: ASPIRIN 325 MG TAB PO STA (06:13)
[2020-02-28] MEDS ORDERED: ATORVASTATIN 80 MG TAB PO STA (06:14)
[2020-02-28] MEDS: METOPROLOL TARTRATE 50 MG TAB PO SCH ×2 (06:18→20:45)
[2020-02-28] MEDS: FUROSEMIDE 40 MG TAB PO SCH ×2 (06:18→15:24)
[2020-02-28] MEDS: lisinopriL 5 MG TAB PO SCH (06:18)
[2020-02-28] MEDS: SPIRONOLACTONE 25 MG TAB PO SCH (06:18)
[2020-02-28] MEDS: ESCITALOPRAM 20 MG TAB PO SCH (06:18)
[2020-02-28 06:21] LABS: Glucose,Whole Blood 98 mg/dL (75-99)
[2020-02-28] MEDS: ARIPiprazole 2 MG TAB PO SCH (06:21)
[2020-02-28] MEDS: methylPREDNISolone SOD SUCCI 40 MG/ML 1 ML VIAL IV SCH ×3 (08:34→23:28)
[2020-02-28] MEDS: IPRATROPIUM-ALBUTEROL 3 ML NEB INHALATION SCH ×4 (08:36→21:27)
[2020-02-28] MEDS: BUDESONIDE 0.5 MG/2 ML NEBU INHALATION SCH ×2 (08:39→21:27)
[2020-02-28] MEDS ORDERED: ATORVASTATIN 40 MG TAB PO SCH ×2 (09:00→21:00)
[2020-02-28 09:39] LABS: Calcium 9.5 mg/dL (8.4-10.2); Potassium 4.9 mmol/L (3.5-5.1)
--- NOTE | 2020-02-28 10:15 | P.PN ---
Subjective Progress Note Date: 02/28/20 Principal diagnosis: Hemoptysis appears to be related to pulmonary edema and airway inflammation however other pulmonary etiologies cannot be excluded, resolved now Acute on chronic systolic heart failure Acute pulmonary edema Acute COPD exacerbation Interstitial pneumonia Elevated troponin /Non-ST segment elevated CO History of extensive COPD 02/28/2020, patient seen eval examined during the rounds labs reviewed medications reviewed care plan discussed, respiratory status continue to improve wheezing is less often, denies anymore hemoptysis, denies any sputum production, breathing more comfortably off of supplemental oxygen, computed tomography scan of the chest reviewed no pulmonary embolism is seen, no evidence of nodules or active infiltrate seen, right posterior side streak-like atelectasis noted, 02/27/2020, patient seen eval examined during the rounds labs reviewed medications reviewed care plan discussed, cough shortness of breath still there but slightly better compared to yesterday, continue to get breathing treatment and steroids seems to be helping no hemoptysis anymore is present 02/26/2020, patient seen eval reexamined during the rounds labs reviewed medications reviewed care plan discussed Is still have intermittent wheezing, hemoptysis however resolved now, shortness of breath is there, denies any chest pain, will continue current plan of care with IV steroids breathing treatment antibiotics This is a 59-year-old male who was seen evaluated examined patient has extensive history of COPD, patient started having cough shortness of breath up started about 4 days ago his his sputum has been mixed with blood for the last 2 days, it is was in the form of streak, he admits intermittent chest pain across, Chest x-ray significant for pulmonary vasculature interstitial changes, cannot exclude pulmonary edema or pneumonia, global hypokinesia is present, LA is dilated along with regurgitation present in mitral area and tricuspid area, patient is on home nebulizer and MDIs for COPD on arrival he was noted to have diffuse wheezing however responded well with bronchodilators and IV steroids which was given in the emergency department, patient noted to have BNP over 10,000 with elevated troponins, covid 19 is negative Objective - Vital Signs Vital signs: Vital Signs Temp 98.2 F 02/28/20 08:32 Pulse 80 02/28/20 08:58 Resp 16 02/28/20 08:32 BP 111/65 02/28/20 08:32 Pulse Ox 95 02/28/20 08:32 Intake & Output 02/27/20 02/28/20 02/28/20 18:59 06:59 18:59 Intake Total 1460 237 0 Output Total 1999 400 Balance -540 -163 0 Weight 93 kg Intake: IV 30 Invasive Line 1 30 Oral 1430 237 0 Output: Urine 1999 400 Other: # Voids 1 - Exam - Constitutional General appearance: average body habitus, disheveled - EENT Eyes: PERRLA Ears: bilateral: normal - Neck Neck: normal ROM Carotids: bilateral: upstroke normal Thyroid: bilateral: normal size - Respiratory Respiratory: bilateral: diminished, wheezing - Cardiovascular Rhythm: regular Heart sounds: normal: S1, S2 - Integumentary Integumentary: normal turgor - Neurologic Neurologic: CNII-XII intact - Musculoskeletal Musculoskeletal: gait normal, generalized weakness, strength equal bilaterally - Psychiatric Psychiatric: A&O x's 3, appropriate affect, intact judgment & insight - Labs CBC & Chem 7: 02/25/20 01:24 02/28/20 08:17 Labs: Abnormal Lab Results - Last 24 Hours (Table) 02/27/20 02/27/20 02/27/20 Range/Units 11:55 16:53 20:14 BUN (9-20) mg/dL Creatinine (0.66-1.25) mg/dL Glucose (74-99) mg/dL POC Glucose (mg/dL) 127 H 136 H 125 H (75-99) mg/dL 02/28/20 Range/Units 08:17 BUN 49 H (9-20) mg/dL Creatinine 1.30 H (0.66-1.25) mg/dL Glucose 109 H (74-99) mg/dL POC Glucose (mg/dL) (75-99) mg/dL Assessment and Plan Assessment: Hemoptysis appears to be related to pulmonary edema and airway inflammation, computed tomography scan of the chest reviewed Acute on chronic systolic heart failure Acute pulmonary edema Acute COPD exacerbation Interstitial pneumonia Elevated troponin /Non-ST segment elevated CO History of extensive COPD Plan: We'll continue patient steroids breathing treatments and antibiotics, further evaluation per cardiovascular services, will monitor patient closely for hemoptysis likely due to airway inflammation or due to pulmonary edema, improved now, reviewed computed tomography, continue supportive care increase activity as tolerated agree with discharge planning Time with Patient: Greater than 30
[2020-02-28 12:25] LABS: Glucose,Whole Blood 109 mg/dL (75-99)
[2020-02-28] MEDS ORDERED: MIDAZOLAM 2 MG/2 ML VIAL IV ONE (13:07)
[2020-02-28] MEDS ORDERED: LIDOCAINE 1% INJ 10MG/ML (20 ML MDV) SQ ONE (13:07)
[2020-02-28] MEDS: VERAPAMIL SYRINGE (5 MG/10 ML) INTRAARTER ONE ×2 (13:13→13:34)
[2020-02-28] MEDS ORDERED: HEPARIN SODIUM 1,000 UN/ML (10ML VL) IV ONE (13:15)
[2020-02-28] MEDS ORDERED: IV FLUID CONTINUATION 1,000 ML IV ONE (13:15)
[2020-02-28] MEDS ORDERED: IOPAMIDOL-370 125ML BTL INJ ONE (13:24)
[2020-02-28] MEDS ORDERED: RX INFO: IV CONTRAST WAS GIVEN 1 EACH MISC MISCELLANE PRN (13:47)
[2020-02-28] MEDS: SODIUM CHLORIDE 0.9% 1,000 ML IV SCH (14:30)
--- NOTE | 2020-02-28 14:31 | CC ---
CARDIAC CATHETERIZATION REPORT DATE OF SERVICE: 02/28/2020. PROCEDURE: Left heart catheterization and coronary angiography. PERFORMED BY: Dr. Sriram Thomas. Moderate conscious sedation time was 20 minutes. Patient was administered Versed. Oxygenation, saturation, and EKG were monitored closely. CLINICAL INFORMATION: Mr. Phil Yap is a 59-year-old gentleman with history of nonischemic cardiomyopathy based on a cardiac cath in April with ejection fraction of 25% range and history of smoking. He came into the hospital with chest pain had significant EKG changes and also mild troponin elevation. Was advised cardiac cath after after evaluation by Dr. Blake. I saw the patient and advised him cardiac cath also based on his presentation and EKG changes. Risks, benefits, options, rationale were explained. PROCEDURE NOTE: Under local anesthesia and strict aseptic precautions, a 6-Mauritian introducer placed in the right radial artery. A JL3.5 and a JR4 catheter was used to perform coronary angiography and the same right catheter was used to check LV pressure but LV gram was not performed. The sheath was taken out and TR band applied as per protocol. Patient tolerated procedure well without complications. CARDIAC CATHETERIZATION FINDINGS: Left ventricular end-diastolic pressure was about 25 mmHg without any gradient across the aortic valve. CORONARY ANGIOGRAPHY FINDINGS: RIGHT CORONARY ARTERY: Technically nondominant vessel, gives off an acute marginal proximally, has minor irregularities and distally becomes a small vessel. Nondominant, minor irregularities no significant disease. LEFT MAIN CORONARY ARTERY: Short patent vessel free of significant disease. Bifurcates into LAD and circumflex. LEFT ANTERIOR DESCENDING CORONARY ARTERY: Good caliber vessel, extends along the anterior wall, gives off a good-sized diagonal branch that divides into 2 branches, then the LAD runs all the way to the apex supplies a sizable amount of myocardium, has minor irregularities, no significant disease. LEFT POSTERIOR CIRCUMFLEX CORONARY ARTERY: A dominant vessel, gives off 2 obtuse marginal branches then runs distally, gives off a PDA and PLV, all of these have minor irregularities. No significant disease. LEFT VENTRICULOGRAM: Left ventriculogram was not performed. FINAL IMPRESSION: This patient has a left dominant system, elevated filling pressures, no gradient across the aortic valve, minor irregularities but no significant obstructive CAD. Patient has probably nonischemic cardiomyopathy. RECOMMENDATIONS: Findings were discussed with the patient. I plan to speak to the family if available. Patient may have had a myocarditis type picture. We will pursue medical therapy, and advised to continue to refrain from alcohol. MMODL / IJN: [id number] /
[2020-02-28 17:26] LABS: Glucose,Whole Blood 141 mg/dL (75-99)
[2020-02-28 20:08] LABS: Glucose,Whole Blood 99 mg/dL (75-99)
[2020-02-28 20:08] LABS: Glucose,Whole Blood 505 mg/dL (75-99)
[2020-02-29 06:10] LABS: Glucose,Whole Blood 126 mg/dL (75-99)
[2020-02-29] MEDS: INSULIN ASPART (NovoLOG) 100 UNIT/ML VIAL SQ SCH ×4 (06:26→20:29)
[2020-02-29 06:52] LABS: Basophils % (A) 0 %; Eosinophils # (A) 0.1 k/uL (0-0.7); Eosinophils % (A) 1 %; HCT 42.7 % (39.0-53.0); HGB 13.8 gm/dL (13.0-17.5); Lymphocytes # (A) 0.9 k/uL (1.0-4.8); Lymphocytes % (A) 6 %; MCH 31.2 pg (25.0-35.0); MCHC 32.4 g/dL (31.0-37.0); MCV 96.3 fL (80.0-100.0); Mean Platelet Volume 8.3; Monocytes # (A) 0.4 k/uL (0-1.0); Monocytes % (A) 3 %; Neutrophils # (A) 12.1 k/uL (1.3-7.7); Neutrophils % (A) 89 %; Platelet Count 381 k/uL (150-450); RBC 4.44 m/uL (4.30-5.90); RDW 12.7 % (11.5-15.5); WBC 13.5 k/uL (3.8-10.6)
[2020-02-29 07:09] LABS: African American GFR (CKD) >90 (>60 ml/min/1.73 sqM); Anion Gap 6 mmol/L; Blood Urea Nitrogen 45 mg/dL (9-20); Calcium 9.1 mg/dL (8.4-10.2); Carbon Dioxide 25 mmol/L (22-30); Chloride 109 mmol/L (98-107); Glucose 115 mg/dL (74-99); Non-African American GFR(CKD) 83 (>60 ml/min/1.73 sqM); Potassium 5.1 mmol/L (3.5-5.1); Sodium 140 mmol/L (137-145)
--- NOTE | 2020-02-29 08:41 | P.PN ---
Subjective Progress Note Date: 02/29/20 Principal diagnosis: Hemoptysis appears to be related to pulmonary edema and airway inflammation however other pulmonary etiologies cannot be excluded, resolved now Acute on chronic systolic heart failure Acute pulmonary edema Acute COPD exacerbation Interstitial pneumonia Elevated troponin /Non-ST segment elevated CO History of extensive COPD 02/29/2020, patient seen eval examined during the rounds labs reviewed medications reviewed care plan discussed, respiratory status continued to improve, patient remains on IV steroids, can be switched to oral prednisone at the time of discharge, antibiotics can be switched to oral as well, continue bronchodilator as needed, agree with discharge planning, follow-up in outpatient basis 02/28/2020, patient seen eval examined during the rounds labs reviewed medications reviewed care plan discussed, respiratory status continue to improve wheezing is less often, denies anymore hemoptysis, denies any sputum production, breathing more comfortably off of supplemental oxygen, computed tomography scan of the chest reviewed no pulmonary embolism is seen, no evidence of nodules or active infiltrate seen, right posterior side streak-like atelectasis noted, 02/27/2020, patient seen eval examined during the rounds labs reviewed medications reviewed care plan discussed, cough shortness of breath still there but slightly better compared to yesterday, continue to get breathing treatment and steroids seems to be helping no hemoptysis anymore is present 02/26/2020, patient seen eval reexamined during the rounds labs reviewed medications reviewed care plan discussed Is still have intermittent wheezing, hemoptysis however resolved now, shortness of breath is there, denies any chest pain, will continue current plan of care with IV steroids breathing treatment antibiotics This is a 59-year-old male who was seen evaluated examined patient has extensive history of COPD, patient started having cough shortness of breath up started about 4 days ago his his sputum has been mixed with blood for the last 2 days, it is was in the form of streak, he admits intermittent chest pain across, Chest x-ray significant for pulmonary vasculature interstitial changes, cannot exclude pulmonary edema or pneumonia, global hypokinesia is present, LA is dilated along with regurgitation present in mitral area and tricuspid area, patient is on home nebulizer and MDIs for COPD on arrival he was noted to have diffuse wheezing however responded well with bronchodilators and IV steroids which was given in the emergency department, patient noted to have BNP over 10,000 with elevated troponins, covid 19 is negative Objective - Vital Signs Vital signs: Vital Signs Temp 98.5 F 02/29/20 03:56 Pulse 78 02/29/20 03:56 Resp 17 02/29/20 07:46 BP 110/74 02/29/20 03:56 Pulse Ox 96 02/29/20 03:56 Intake & Output 02/28/20 02/29/20 02/29/20 18:59 06:59 18:59 Intake Total 640 232 Output Total 300 Balance 340 232 Weight 75.5 kg Intake: IV 40 10 Invasive Line 1 20 10 Oral 600 222 Output: Urine 300 Other: Voiding Method Toilet Toilet - Exam - Constitutional General appearance: average body habitus, disheveled - EENT Eyes: PERRLA Ears: bilateral: normal - Neck Neck: normal ROM Carotids: bilateral: upstroke normal Thyroid: bilateral: normal size - Respiratory Respiratory: bilateral: diminished, wheezing - Cardiovascular Rhythm: regular Heart sounds: normal: S1, S2 - Integumentary Integumentary: normal turgor - Neurologic Neurologic: CNII-XII intact - Musculoskeletal Musculoskeletal: gait normal, generalized weakness, strength equal bilaterally - Psychiatric Psychiatric: A&O x's 3, appropriate affect, intact judgment & insight - Labs CBC & Chem 7: 02/29/20 06:20 02/29/20 06:20 Labs: Abnormal Lab Results - Last 24 Hours (Table) 02/28/20 02/28/20 02/28/20 Range/Units 08:17 12:08 17:00 WBC (3.8-10.6) k/uL Neutrophils # (1.3-7.7) k/uL Lymphocytes # (1.0-4.8) k/uL Chloride (98-107) mmol/L BUN 49 H (9-20) mg/dL Creatinine 1.30 H (0.66-1.25) mg/dL Glucose 109 H (74-99) mg/dL POC Glucose (mg/dL) 109 H 141 H (75-99) mg/dL 02/28/20 02/29/20 02/29/20 Range/Units 20:02 06:09 06:20 WBC 13.5 H (3.8-10.6) k/uL Neutrophils # 12.1 H (1.3-7.7) k/uL Lymphocytes # 0.9 L (1.0-4.8) k/uL Chloride (98-107) mmol/L BUN (9-20) mg/dL Creatinine (0.66-1.25) mg/dL Glucose (74-99) mg/dL POC Glucose (mg/dL) 505 H 126 H (75-99) mg/dL 02/29/20 Range/Units 06:20 WBC (3.8-10.6) k/uL Neutrophils # (1.3-7.7) k/uL Lymphocytes # (1.0-4.8) k/uL Chloride 109 H (98-107) mmol/L BUN 45 H (9-20) mg/dL Creatinine (0.66-1.25) mg/dL Glucose 115 H (74-99) mg/dL POC Glucose (mg/dL) (75-99) mg/dL Assessment and Plan Assessment: Hemoptysis appears to be related to pulmonary edema and airway inflammation, computed tomography scan of the chest reviewed, now resolved Acute on chronic systolic heart failure Acute pulmonary edema Acute COPD exacerbation Interstitial pneumonia Elevated troponin /Non-ST segment elevated CO History of extensive COPD Plan: We'll continue patient steroids breathing treatments and antibiotics, further evaluation per cardiovascular services, will monitor patient closely for hemoptysis likely due to airway inflammation or due to pulmonary edema, improved now, reviewed computed tomography, continue supportive care increase activity as tolerated agree with discharge planning, at the time of discharge antibiotics and steroids can be switched to oral follow-up in 1-2 weeks Time with Patient: Greater than 30
[2020-02-29] MEDS: methylPREDNISolone SOD SUCCI 40 MG/ML 1 ML VIAL IV SCH ×3 (08:45→23:02)
[2020-02-29] MEDS: ARIPiprazole 2 MG TAB PO SCH (08:45)
[2020-02-29] MEDS: ESCITALOPRAM 20 MG TAB PO SCH (08:45)
[2020-02-29] MEDS: lisinopriL 5 MG TAB PO SCH (08:45)
[2020-02-29] MEDS: ASPIRIN 81 MG PO SCH (08:45)
[2020-02-29] MEDS: METOPROLOL TARTRATE 50 MG TAB PO SCH ×2 (08:45→20:29)
[2020-02-29] MEDS: FUROSEMIDE 40 MG TAB PO SCH ×2 (08:45→16:36)
[2020-02-29] MEDS: SPIRONOLACTONE 25 MG TAB PO SCH (08:45)
[2020-02-29] MEDS: ATORVASTATIN 40 MG TAB PO SCH (08:45)
[2020-02-29] MEDS: SODIUM CHLORIDE 0.9% 1,000 ML IV SCH (08:46)
[2020-02-29] MEDS: BUDESONIDE 0.5 MG/2 ML NEBU INHALATION SCH ×2 (09:03→20:08)
[2020-02-29] MEDS: IPRATROPIUM-ALBUTEROL 3 ML NEB INHALATION SCH ×4 (09:03→20:08)
[2020-02-29 12:44] LABS: Glucose,Whole Blood 85 mg/dL (75-99)
--- NOTE | 2020-02-29 13:42 | PN ---
PROGRESS NOTE Mr. Villarreal is a gentleman with nonischemic cardiomyopathy who used to drink alcohol heavily. He had no significant disease and a cardiac cath in April, was treated with anti heart failure medications, came into the hospital with T-wave inversion, chest pain, and LV function is quite poor at 25%. He does not have any ventricular ectopy. His heart failure seems to have settled down. I repeated a cardiac cath yesterday because of EKG changes and his anatomy is unchanged. No significant disease. We are dealing with nonischemic cardiomyopathy. The patient insists that he has not touched a drop of alcohol since April. I will make some adjustment in medications. I will discontinue lisinopril, place him on Entresto and also on a small dose of amiodarone, increase activity and I will see him in the office in one week. He will require an ICD as an outpatient. We discussed about a life vest, but patient is somewhat reluctant at this time and I also feel that for nonischemic cardiomyopathy, we will treat him with amiodarone empirically and I will evaluate him in the office in a week and proceed with a primary prevention ICD. PHYSICAL EXAMINATION: Vitals are stable. The right radial site is clean and dry with a good pulse. S1, S2 heard normally. Short systolic murmur noted. Lungs are clear. Abdomen and lower exam unchanged. MMODL / IJN: [id number] /
[2020-02-29 16:58] LABS: Glucose,Whole Blood 179 mg/dL (75-99)
[2020-02-29 20:28] LABS: Glucose,Whole Blood 119 mg/dL (75-99)
[2020-02-29] MEDS: AMIODARONE 200 MG TAB PO SCH (20:29)
[2020-03-01 06:29] LABS: Glucose,Whole Blood 101 mg/dL (75-99)
[2020-03-01] MEDS: INSULIN ASPART (NovoLOG) 100 UNIT/ML VIAL SQ SCH ×3 (06:43→17:47)
[2020-03-01] MEDS: SPIRONOLACTONE 25 MG TAB PO SCH (07:53)
[2020-03-01] MEDS: AMIODARONE 200 MG TAB PO SCH ×2 (07:53→18:52)
[2020-03-01] MEDS: FUROSEMIDE 40 MG TAB PO SCH ×2 (07:53→16:09)
[2020-03-01] MEDS: ESCITALOPRAM 20 MG TAB PO SCH (07:53)
[2020-03-01] MEDS: methylPREDNISolone SOD SUCCI 40 MG/ML 1 ML VIAL IV SCH ×2 (07:53→17:47)
[2020-03-01] MEDS: METOPROLOL TARTRATE 50 MG TAB PO SCH ×2 (07:53→18:52)
[2020-03-01] MEDS: ATORVASTATIN 40 MG TAB PO SCH (07:53)
[2020-03-01] MEDS: ASPIRIN 81 MG PO SCH (07:53)
[2020-03-01] MEDS: ARIPiprazole 2 MG TAB PO SCH (07:54)
[2020-03-01] MEDS: IPRATROPIUM-ALBUTEROL 3 ML NEB INHALATION SCH ×3 (08:31→16:23)
[2020-03-01] MEDS: BUDESONIDE 0.5 MG/2 ML NEBU INHALATION SCH (08:31)
[2020-03-01 08:57] VITALS: RESP 16
[2020-03-01] MEDS ORDERED: SACUBITRIL/VALSARTAN 24 MG-26 MG TABLET PO SCH ×3 (11:15→21:00)
[2020-03-01 11:35] LABS: Glucose,Whole Blood 109 mg/dL (75-99)
--- NOTE | 2020-03-01 12:03 | P.PN ---
Subjective HISTORY OF PRESENTING ILLNESS This is a pleasant 59-year-old male past medical history significant for nonischemic cardiomyopathy, chronic nicotine dependence, COPD, nonobstructive coronary artery disease and chronic nicotine dependence. He follows in the office with Dr. Thomas. He underwent cardiac catheterization showing no change in his cardiac disease with severe cardiomyopathy EF 25%. Telemetry tracings unremarkable. He denies chest pain, shortness of breath, dizziness or palpitations. Blood pressure 103/59 heart rate 69 afebrile maintaining oxygen saturation on room air. Currently maintained on amiodarone 200 mg twice a day, aspirin 81 mg daily, atorvastatin 40 mg daily, Lasix 40 mg by mouth twice a day, metoprolol 50 mg twice a day, Aldactone 25 mg daily and entresto will start tonight. PHYSICAL EXAMINATION CONSTITUTIONAL: No apparent distress. HEENT: Head is normocephalic. Pupils are equal, round. Sclerae anicteric. Mucous membranes of the mouth are moist. No JVD. No carotid bruit. CHEST EXAMINATION: Expiratory wheezes and diminished bilaterally. No rales or rhonchi. No chest wall tenderness is noted on palpation or with deep breathing. HEART EXAMINATION: Regular rate and rhythm. S1, S2 heard. No murmurs, gallops or rub. EXTREMITIES: 2+ peripheral pulses, no lower extremity edema and no calf tenderness. ASSESSMENT Acute on chronic mixed diastolic and systolic heart failure Non-ischemic cardiomyopathy Mild troponin elevation not indicative of ACS COPD Pulmonary hypertension, RVSP mmHg Hypertension Chronic nicotine dependence PLAN Give first dose of entresto now and watch blood pressure closely until early evening. If he tolerates without hypotension or other significant side effects he can be discharged home. Follow up in the office with Dr. Thomas next week. Have BMP checked in 3 days. Nurse Practitioner note has been reviewed, I agree with a documented findings and plan of care. Patient was seen and examined. Objective - Vital Signs Vital signs: Vital Signs Temp 97.6 F 03/01/20 07:47 Pulse 69 03/01/20 07:47 Resp 16 03/01/20 07:47 BP 103/59 03/01/20 07:47 Pulse Ox 92 L 03/01/20 07:47 Intake & Output 02/29/20 03/01/20 03/01/20 18:59 06:59 18:59 Intake Total 850 240 Output Total 300 Balance 850 -300 240 Weight 76.884 kg Intake: IV 10 Invasive Line 1 10 Oral 840 240 Output: Urine 300 Other: Voiding Method Toilet Toilet # Voids 3 3 # Bowel Movements 1 1 - Labs CBC & Chem 7: 02/29/20 06:20 02/29/20 06:20 Labs: Abnormal Lab Results - Last 24 Hours (Table) 02/29/20 02/29/20 03/01/20 Range/Units 16:52 20:27 06:12 POC Glucose (mg/dL) 179 H 119 H 101 H (75-99) mg/dL
[2020-03-01 15:58] VITALS: TEMP 97.2
[2020-03-01 16:40] LABS: Glucose,Whole Blood 179 mg/dL (75-99)
[2020-03-01 19:41] VITALS: BP 105/69; PULSE 64
--- NOTE | 2020-03-01 20:23 | P.PN ---
Subjective Progress Note Date: 03/01/20 Principal diagnosis: Hemoptysis appears to be related to pulmonary edema and airway inflammation however other pulmonary etiologies cannot be excluded, resolved now Acute on chronic systolic heart failure Acute pulmonary edema Acute COPD exacerbation Interstitial pneumonia Elevated troponin /Non-ST segment elevated OR History of extensive COPD 03/01/2020, patient seen eval examined during the rounds shortness of breath stable denies any wheezing cuff congestion, oxygen saturation is stable mid 90s, off of oxygen, patient is being discharged today, agree with discharge planning on oral antibiotics given that patient has significant amount of steroids IV will hold on steroids by mouth, follow-up on outpatient basis 02/29/2020, patient seen eval examined during the rounds labs reviewed medications reviewed care plan discussed, respiratory status continued to impro ve, patient remains on IV steroids, can be switched to oral prednisone at the time of discharge, antibiotics can be switched to oral as well, continue bronchodilator as needed, agree with discharge planning, follow-up in outpatient basis 02/28/2020, patient seen eval examined during the rounds labs reviewed medications reviewed care plan discussed, respiratory status continue to improve wheezing is less often, denies anymore hemoptysis, denies any sputum production, breathing more comfortably off of supplemental oxygen, computed tomography scan of the chest reviewed no pulmonary embolism is seen, no evidence of nodules or active infiltrate seen, right posterior side streak-like atelectasis noted, 02/27/2020, patient seen eval examined during the rounds labs reviewed medications reviewed care plan discussed, cough shortness of breath still there but slightly better compared to yesterday, continue to get breathing treatment and steroids seems to be helping no hemoptysis anymore is present 02/26/2020, patient seen eval reexamined during the rounds labs reviewed medications reviewed care plan discussed Is still have intermittent wheezing, hemoptysis however resolved now, shortness of breath is there, denies any chest pain, will continue current plan of care with IV steroids breathing treatment antibiotics This is a 59-year-old male who was seen evaluated examined patient has extensive history of COPD, patient started having cough shortness of breath up started about 4 days ago his his sputum has been mixed with blood for the last 2 days, it is was in the form of streak, he admits intermittent chest pain across, Chest x-ray significant for pulmonary vasculature interstitial changes, cannot exclude pulmonary edema or pneumonia, global hypokinesia is present, LA is dilated along with regurgitation present in mitral area and tricuspid area, patient is on home nebulizer and MDIs for COPD on arrival he was noted to have diffuse wheezing however responded well with bronchodilators and IV steroids which was given in the emergency department, patient noted to have BNP over 10,000 with elevated troponins, covid 19 is negative Objective - Vital Signs Vital signs: Vital Signs Temp 97.2 F L 03/01/20 15:57 Pulse 64 03/01/20 19:40 Resp 16 03/01/20 15:57 BP 105/69 03/01/20 19:40 Pulse Ox 96 03/01/20 16:23 Intake & Output 03/01/20 03/01/20 03/02/20 06:59 18:59 06:59 Intake Total 1080 Output Total 300 Balance -300 1080 Weight 76.884 kg Intake: Oral 1080 Output: Urine 300 Other: Voiding Method Toilet # Voids 3 # Bowel Movements 1 - Exam - Constitutional General appearance: average body habitus, disheveled - EENT Eyes: PERRLA Ears: bilateral: normal - Neck Neck: normal ROM Carotids: bilateral: upstroke normal Thyroid: bilateral: normal size - Respiratory Respiratory: bilateral: diminished, wheezing resolved - Cardiovascular Rhythm: regular Heart sounds: normal: S1, S2 - Integumentary Integumentary: normal turgor - Neurologic Neurologic: CNII-XII intact - Musculoskeletal Musculoskeletal: gait normal, generalized weakness, strength equal bilaterally - Psychiatric Psychiatric: A&O x's 3, appropriate affect, intact judgment & insight - Labs CBC & Chem 7: 02/29/20 06:20 02/29/20 06:20 Labs: Abnormal Lab Results - Last 24 Hours (Table) 02/29/20 03/01/20 03/01/20 Range/Units 20:27 06:12 11:33 POC Glucose (mg/dL) 119 H 101 H 109 H (75-99) mg/dL 03/01/20 Range/Units 16:39 POC Glucose (mg/dL) 179 H (75-99) mg/dL Assessment and Plan Assessment: Hemoptysis appears to be related to pulmonary edema and airway inflammation, computed tomography scan of the chest reviewed, now resolved Acute on chronic systolic heart failure Acute pulmonary edema Acute COPD exacerbation Interstitial pneumonia Elevated troponin /Non-ST segment elevated OR History of extensive COPD Plan: Continue breathing treatments and antibiotics, further evaluation per cardiovascular services, will monitor patient closely for hemoptysis as outpatient, likely due to airway inflammation or due to pulmonary edema, improved now, reviewed computed tomography, continue supportive care increase activity as tolerated agree with discharge planning, patient can be discharged home on oral antibiotics follow in outpatient setting Time with Patient: Greater than 30
== END 2020-03-01 19:57 | disposition home or self-care (01) | DRG 287 ==
LOC: EC 00:54 → SUPCPDRO 00:54 → 3SCARD 02:24
PROVIDERS: ADMIT Family Medicine; ATTEND Family Medicine
PROC: 4A023N7 Measurement of Cardiac Sampling and Pressure, Left Heart, Percutaneous Approach (ICD-10-PCS; principal; 2020-02-28 12:00)
PROC: B2111ZZ Fluoroscopy of Multiple Coronary Arteries using Low Osmolar Contrast (ICD-10-PCS; principal; 2020-02-28 12:00)
DX: I11.0 Hypertensive heart disease with heart failure (principal); J44.1 Chronic obstructive pulmonary disease with (acute) exacerbation; J84.9 Interstitial pulmonary disease, unspecified; J98.11 Atelectasis; R04.2 Hemoptysis; I50.43 Acute on chronic combined systolic (congestive) and diastolic (congestive) heart failure; I27.20 Pulmonary hypertension, unspecified; I42.8 Other cardiomyopathies; E78.5 Hyperlipidemia, unspecified; F17.200 Nicotine dependence, unspecified, uncomplicated; I25.10 Atherosclerotic heart disease of native coronary artery without angina pectoris; Z20.828 Contact with and (suspected) exposure to other viral communicable diseases; M19.90 Unspecified osteoarthritis, unspecified site; I08.1 Rheumatic disorders of both mitral and tricuspid valves; R79.89 Other specified abnormal findings of blood chemistry; Z79.899 Other long term (current) drug therapy; Z79.52 Long term (current) use of systemic steroids; Z90.49 Acquired absence of other specified parts of digestive tract; Z87.898 Personal history of other specified conditions; Z82.5 Family history of asthma and other chronic lower respiratory diseases; Z80.8 Family history of malignant neoplasm of other organs or systems
CPT/HCPCS: 36415; 71046; 71250; 80048; 80053; 80061; 83735; 83880; 84484; 85025; 85379; 85610; 85730; 87635; 93005; 93306; 93458; 94640; 94760; 96374; 96375; 99285

== ENCOUNTER → 2020-03-12 | Outpatient (CLI) | payer OTHER ==
[2020-03-12 15:37] LABS: African American GFR (CKD) 85.3 (60.0-200.0); Anion Gap 6.5 mmol/L (4.00-12.00); BUN/Creat Ratio 15.45 Ratio (12.00-20.00); Calcium 9.3 mg/dL (8.7-10.3); Carbon Dioxide 26.5 mmol/L (21.6-31.8); Non-African American GFR(CKD) 73.6 (60.0-200.0); Potassium 4.5 mmol/L (3.5-5.5)
== END | disposition home or self-care (01) ==
LOC: LABWHC1 08:08
PROVIDERS: ATTEND Internal Medicine Interventional Cardiology
DX: I50.9 Heart failure, unspecified (principal)
CPT/HCPCS: 36415; 80048

== ENCOUNTER → 2020-04-24 | Outpatient (CLI) | payer OTHER ==
[2020-04-24 11:57] LABS: HCT 46.4 % (39.0-53.0); HGB 14.7 gm/dL (13.0-17.5); MCH 29.7 pg (25.0-35.0); MCHC 31.7 g/dL (31.0-37.0); MCV 93.7 fL (80.0-100.0); Mean Platelet Volume 7.7; Platelet Count 334 k/uL (150-450); RBC 4.95 m/uL (4.30-5.90); RDW 13.5 % (11.5-15.5); WBC 6.7 k/uL (3.8-10.6)
[2020-04-24 12:06] LABS: African American GFR (CKD) >90 (>60 ml/min/1.73 sqM); Anion Gap 4 mmol/L; Blood Urea Nitrogen 14 mg/dL (9-20); Carbon Dioxide 29 mmol/L (22-30); Chloride 105 mmol/L (98-107); Non-African American GFR(CKD) 85 (>60 ml/min/1.73 sqM); Potassium 4.6 mmol/L (3.5-5.1); Sodium 138 mmol/L (137-145)
== END | disposition home or self-care (01) ==
LOC: LABPAT 10:21
PROVIDERS: ATTEND Internal Medicine Cardiovascular Disease
DX: Z01.818 Encounter for other preprocedural examination (principal); I50.22 Chronic systolic (congestive) heart failure
CPT/HCPCS: 80051; 82565; 84520; 85027

== ENCOUNTER 2020-05-01 10:36 | Day surgery (SDC) | payer OTHER ==
[2020-04-30 08:48] VITALS: BMI 24.3
[~2020-05-01 10:36] MED LIST: ceFAZolin 1 GM in SODIUM CHLORIDE 0.9% 250 ML IRRIGATION PRN
[2020-05-01] MEDS: SODIUM CHLORIDE 0.9% 1,000 ML IV SCH ×3 (11:13→22:35)
[2020-05-01] MEDS ORDERED: LIDOCAINE 1% INJ 10MG/ML (20 ML MDV) ONE (12:20)
[2020-05-01] MEDS ORDERED: MIDAZOLAM 2 MG/2 ML VIAL ONE (12:21)
[2020-05-01] MEDS ORDERED: fentaNYL (PF) 50 MCG/ML 2 ML AMP ONE (12:21)
[2020-05-01] MEDS ORDERED: PROPOFOL 10 MG/ML 20 ML VIAL IV ONE (12:21)
[2020-05-01] MEDS ORDERED: IOPAMIDOL-250 50ML BTL IV ONE (12:33)
[2020-05-01] MEDS ORDERED: LIDOCAINE 1% INJ 10MG/ML (20 ML MDV) SQ ONE (12:57)
--- NOTE | 2020-05-01 14:33 | P.PCN ---
Date of Procedure: 05/01/20 Preoperative Diagnosis: Nonischemic cardiomyopathy, congestive heart failure Postoperative Diagnosis: The same Procedure(s) Performed: Single-chamber AICD implantation, axillary venography and a DFT testing Description of Procedure: HISTORY: This is a 59-year-old gentleman with history of nonischemic cardiomyopathy and congestive heart failure, who was referred for prophylactic AICD implantation by Dr. MARIAH Thomas. Patient and family were explained the risks and benefits of the procedure. CONSENT:I have discussed the risks, benefits and alternative therapies for the above-mentioned procedure and for both sedation/analgesia as well as necessary blood product administration, if indicated, as they pertain to this patient. The patient has indicated understanding and acceptance of the risks and procedures discussed. PROCEDURE: Patient was brought to the lab in a fasting state. Patient was prepped and draped in the usual fashion. Patient was given IV sedation with fentanyl and Versed. The skin below the left clavicle was infiltrated with lidocaine. An incision was made parallel to deltopectoral groove was deepened until the pectoral fascia was exposed. A pocket was created by blunt dissection and cautery. Axillary venography was performed to delineate the course of the axillary vein. A single venous stick was performed into extrathoracic portion of the axillary vein and a single sheath was advanced over the guidewires and left in subclavian vein. Conscious Sedation: This was administered by department of anesthesia Duration 65minutes LEADS: VENTRICULAR: This is manufactured by [employer]. Model number is [id number] and the serial number is [id number] THE DEVICE: This is manufactured by [employer]. Model number is [id number] and the serial number is [id number]. The ventricular lead is maneuvered l with help of a straight and curved stylets into the left ventricle septal region. Satisfactory position was obtained and threshold measurements were made. THRESHOLDS: VENTRICLE: The minimum patient threshold was 0.6 at pulse width of 0.5 with impedance of 607. R-wave: 9.3 and the slew rate is 2 V per second. The shock impedance was 65. The leads and pulse generator remained in the pocket after it was washed with antibiotics. Pocket was closed in the usual fashion. The fascia was closed with 2-0 Prolene ,the subcutaneous tissue was closed with 3-0 Prolene and the skin was closed with 4-0 Prolene. DFT TESTING: Patient was given IV sedation by department of anesthesia. The ventricular fibrillation was induced with T shock. This was appropriately detected and a 15 J shock converted patient back to sinus rhythm. Patient tolerated the procedure well. The shock impedance was 65. Charge time was 3. PROGRAMMING: Freddie programming: MODE: VVI RATE: Lower rate is 40. Upper activity rate is 120. OUTPUT: Ventricle: 3.5 Tachycardia Programming : The VF zone is programmed to a rate of 240 bpm in the VT zone is programmed to 176 bpm. VF zone: This is programmed to a rate of 2 14 bpm. Initial detection is 30 out of 40 and the dictated is 12 out of 16. The therapies are programmed to 25 J followed by 35 J 5. VT zone: This is programmed to a rate of 176. Initial detection is 16 bpm and 3, direct is 12 beats. Therapies are programmed. Burst pacing 2 followed by cardioversion with 25 J 4. The monitor zone is programmed to a rate of 1 50 bpm FINAL IMPRESSION: , 1. Axillary venography #2. Successful implantation of single-chamber AICD. #3. DFT testing COMPLICATIONS: None. PLAN: Continue prophylactic antibiotics. Monitor with telemetry unit. The patient is stable and thresholds are stable, patient will be discharged from tomorrow. Chest x-ray in a.m.
[2020-05-01 17:16] VITALS: RESP 16
[2020-05-01] MEDS: ACETAMINOPHEN TAB 325 MG TAB PO PRN (17:20)
[2020-05-02] MEDS: ACETAMINOPHEN TAB 325 MG TAB PO PRN ×2 (00:23→08:30)
[2020-05-02] MEDS: SODIUM CHLORIDE 0.9% 1,000 ML IV SCH (00:41)
--- NOTE | 2020-05-02 07:31 | XR ---
EXAMINATION TYPE: XR chest 2V DATE OF EXAM: 05/02/2020 COMPARISON: 02/25/2020 INDICATION: Lead placement check TECHNIQUE: Frontal and lateral views of the chest are obtained. FINDINGS: The heart size is normal. The pulmonary vasculature is normal. The lungs are clear. No pneumothorax is evident. Single lead pacemaker is present. IMPRESSION: 1. No pneumothorax post pacemaker placement.
[2020-05-02 08:19] VITALS: BP 141/92; PULSE 94; TEMP 98.3
--- NOTE | 2020-05-02 15:48 | P.DS ---
Providers Date of admission: 05/01/2020 Attending physician: Eric Ware Primary care physician: Felix Burgos - Discharge Diagnosis(es) (1) Nonischemic cardiomyopathy Status: Acute (2) CHF (congestive heart failure) Status: Acute (3) History of implantable cardioverter-defibrillator (ICD) insertion Status: Acute (4) COPD (chronic obstructive pulmonary disease) Status: Acute Hospital Course: This patient was brought in for elective placement of the AICD. Patient had a single-chamber single coil AICD implantation yesterday. Patient tolerated the procedure well. Patient also had DFT testing. Patient remained stable overnight. Mild discomfort at the site of the pocket. The pocket is soft without any hematoma. His chest x-ray showed stable lead position. Threshold remained stable. Patient is tolerating activity. He is being discharged home with the usual instructions. Patient is advised not to use the left arm, elbow to shoulder level. Advised her not to push, pull, or carry any heavy weights with the left arm. No driving until seen in the office. He is advised to continue current medical therapy. Is given prophylactic antibiotic for 3 days. He is advised to report was if he develops any significant swelling or fever or chills or bleeding. Follow-up in the office and in the device clinic in 1 week. Plan - Discharge Summary Discharge Rx Participant: No New Discharge Prescriptions: New Acetaminophen Tab [Tylenol] 650 mg PO Q6HR PRN tab PRN Reason: Mild Pain Cephalexin [Keflex] 500 mg PO Q8HR 1 Days #10 cap Continue Metoprolol Tartrate [Lopressor] 50 mg PO BID #60 tab Albuterol Sulfate [Proair Hfa] 2 puff INHALATION RT-Q6H PRN #1 inhaler PRN Reason: Shortness Of Breath Albuterol Nebulized [Ventolin Nebulized] 2.5 mg INHALATION RT-Q6H PRN #120 neb PRN Reason: Shortness Of Breath Tiotropium Igo [Spiriva] 1 cap INHALATION RT-DAILY #1 inh ARIPiprazole [Abilify] 2 mg PO DAILY Spironolactone [Aldactone] 12.5 mg PO DAILY Acetaminophen [Tylenol] 325 mg PO Q6H PRN PRN Reason: Pain Or Fever > 100.5 Aspirin 81 mg PO DAILY 90 Days #90 chew Furosemide [Lasix] 40 mg PO BID@0900,1600 90 Days #180 tab Atorvastatin [Lipitor] 40 mg PO DAILY 90 Days #90 tab Sacubitril/Valsartan [Entresto 24 mg-26 mg Tablet] 1 each PO BID #180 tablet Amiodarone [Cordarone] 200 mg PO BID #90 tab Discharge Medication List Albuterol Nebulized [Ventolin Nebulized] 2.5 mg INHALATION RT-Q6H PRN #120 neb 04/25/19 [Rx] Albuterol Sulfate [Proair Hfa] 2 puff INHALATION RT-Q6H PRN #1 inhaler 04/25/19 [Rx] Metoprolol Tartrate [Lopressor] 50 mg PO BID #60 tab 04/25/19 [Rx] Tiotropium Igo [Spiriva] 1 cap INHALATION RT-DAILY #1 inh 04/25/19 [Rx] ARIPiprazole [Abilify] 2 mg PO DAILY 02/25/20 [History] Acetaminophen [Tylenol] 325 mg PO Q6H PRN 02/25/20 [History] Spironolactone [Aldactone] 12.5 mg PO DAILY 02/25/20 [History] Aspirin 81 mg PO DAILY 90 Days #90 chew 02/29/20 [Rx] Atorvastatin [Lipitor] 40 mg PO DAILY 90 Days #90 tab 02/29/20 [Rx] Furosemide [Lasix] 40 mg PO BID@0900,1600 90 Days #180 tab 02/29/20 [Rx] Amiodarone [Cordarone] 200 mg PO BID #90 tab 03/01/20 [Rx] Sacubitril/Valsartan [Entresto 24 mg-26 mg Tablet] 1 each PO BID #180 tablet 03/01/20 [Rx] Acetaminophen Tab [Tylenol] 650 mg PO Q6HR PRN tab 05/02/20 [Rx] Cephalexin [Keflex] 500 mg PO Q8HR 1 Days #10 cap 05/02/20 [Rx] Follow up Appointment(s)/Referral(s): Tigre Thomas MD [STAFF PHYSICIAN] - 05/12/20 9:30 am (Appointment made for device check 05/12/20 at 9:30 , appointment made to see Mary at 10:30) Patient Instructions/Handouts: Angina (DC), Pacemaker (DC) Discharge Disposition: HOME SELF-CARE
== END 2020-05-02 11:12 | disposition home or self-care (01) ==
LOC: CATHEP 10:36 → 6NMEDSUR 13:57 → CATHEP 05-02 11:12
PROVIDERS: ATTEND Internal Medicine Cardiovascular Disease
DX: I42.0 Dilated cardiomyopathy (principal); I50.22 Chronic systolic (congestive) heart failure; I42.8 Other cardiomyopathies; I47.2 Ventricular tachycardia; Z72.0 Tobacco use; J44.9 Chronic obstructive pulmonary disease, unspecified; F10.20 Alcohol dependence, uncomplicated; Z79.82 Long term (current) use of aspirin; Z79.899 Other long term (current) drug therapy
CPT/HCPCS: 93641; 33249; 71046; C1769; C1722; C1895; J2250; J0690; J2001; J3010; J2704; Q9966

== ENCOUNTER 2020-08-12 14:05 | Emergency (ER) | payer OTHER ==
[2020-08-12 14:16] VITALS: BP 96/88; PULSE 86; RESP 18; TEMP 98.3
--- NOTE | 2020-08-12 14:36 | ED ---
Chest Pain HPI - General Chief Complaint: Chest Pain Stated Complaint: Chest Pain, Lethargic Time Seen by Provider: 08/12/20 14:05 Source: patient, EMS, RN notes reviewed, old records reviewed Mode of arrival: EMS - History of Present Illness Initial Comments: This is a 60-year-old male with history of cardiac disease a recent pacemaker placement COPD is currently sitting in his son's car when he became less responsive than usual apparently per his son he was out patient had no complaints of headache dizziness blurry vision no recall of the event he also has some chest pain was resolved and route by EMS. He is unable to really define or describe the chest pain. Currently he is awake and alert and has no complaints no trauma reported no recent fevers chills nausea vomiting sweats. MD Complaint: chest pain, other - Related Data Home Medications Medication Instructions Recorded Confirmed Spironolactone [Aldactone] 12.5 mg PO DAILY 02/25/20 08/12/20 Cholecalciferol [Vitamin D3 (25 25 mcg PO DAILY 08/12/20 08/12/20 Mcg = 1000 Iu)] Loperamide HCl [Imodium A-D] 2 mg PO ACHS PRN 08/12/20 08/12/20 Vitamin B Complex 1 cap PO DAILY 08/12/20 08/12/20 Previous Rx's Medication Instructions Recorded Aspirin 81 mg PO DAILY 90 Days #90 chew 02/29/20 Atorvastatin [Lipitor] 40 mg PO DAILY 90 Days #90 tab 02/29/20 Furosemide [Lasix] 40 mg PO BID@0900,1600 90 Days 02/29/20 #180 tab Amiodarone [Cordarone] 200 mg PO BID #90 tab 03/01/20 Allergies Allergy/AdvReac Type Severity Reaction Status Date / Time No Known Allergies Allergy Verified 08/12/20 16:05 Review of Systems ROS Statement: Those systems with pertinent positive or pertinent negative responses have been documented in the HPI. ROS Other: All systems not noted in ROS Statement are negative. Past Medical History Past Medical History: COPD, Hyperlipidemia, Hypertension, Myocardial Infarction (IN), Osteoarthritis (OA) Additional Past Medical History / Comment(s): arthritis, "shakes", syncope. EF- 20/25% Last Myocardial Infarction Date:: 02/25/20 History of Any Multi-Drug Resistant Organisms: None Reported Past Surgical History: Appendectomy, Heart Catheterization Past Anesthesia/Blood Transfusion Reactions: No Reported Reaction Past Psychological History: No Psychological Hx Reported Smoking Status: Former smoker Past Alcohol Use History: None Reported Past Drug Use History: None Reported - Past Family History Mother Family Medical History: Cancer Additional Family Medical History / Comment(s): Cancer in jaw Father Family Medical History: COPD General Exam - General Exam Comments Initial Comments: This is a well-developed well-nourished awake alert oriented times 3 male General appearance: alert, in no apparent distress Head exam: Present: atraumatic, normocephalic, normal inspection Eye exam: Present: normal appearance, PERRL, EOMI. Absent: scleral icterus, conjunctival injection, periorbital swelling ENT exam: Present: normal exam, mucous membranes moist Neck exam: Present: normal inspection. Absent: tenderness, meningismus, lymphadenopathy Respiratory exam: Present: normal lung sounds bilaterally, other (Cruz her pocket appears be intact no evidence of any dehiscence no tenderness no evidence of infection). Absent: respiratory distress, wheezes, rales, rhonchi, stridor Cardiovascular Exam: Present: regular rate, normal rhythm, normal heart sounds. Absent: systolic murmur, diastolic murmur, rubs, gallop, clicks GI/Abdominal exam: Present: soft, normal bowel sounds. Absent: distended, tenderness, guarding, rebound, rigid Extremities exam: Present: normal inspection, full ROM, normal capillary refill. Absent: tenderness, pedal edema, joint swelling, calf tenderness Back exam: Present: normal inspection Neurological exam: Present: alert, oriented X3, CN II-XII intact Psychiatric exam: Present: normal affect, normal mood Skin exam: Present: warm, dry, intact, normal color. Absent: rash Course Vital Signs 08/12/20 14:10 Temperature 98.3 F Pulse Rate 86 Respiratory 18 Rate Blood Pressure 96/88 O2 Sat by Pulse 98 Oximetry - Reevaluation(s) Reevaluation #1: 08/12/20 16:47 The patient remains awake alert oriented 3 no distress Chest Pain MDM - MDM Imaging reviewed no evidence of acute processes. Discussed the findings with the patient I did recommend admission the patient is not wanting to stay today we did discuss return parameters he does have a appointment to see Dr. Thomas tomorrow. Both far his symptoms are not totally explained. Disposition Clinical Impression: Syncope, Chest pain Disposition: Left Against Medical Advice Condition: Stable Instructions (If sedation given, give patient instructions): Chest Pain (ED), Syncope (ED) Additional Instructions: Keep your follow-up appointments as planned return if any issues including chest pain or recurrent episodes of syncope or near syncope Is patient prescribed a controlled substance at d/c from ED?: No Referrals: Felix Burgos MD [Primary Care Provider] - 1-2 days
[2020-08-12 14:47] LABS: Basophils # (A) 0.1 k/uL (0-0.2); Basophils % (A) 3 %; Eosinophils # (A) 0.1 k/uL (0-0.7); Eosinophils % (A) 1 %; HCT 43.1 % (39.0-53.0); HGB 14.6 gm/dL (13.0-17.5); Lymphocytes # (A) 0.9 k/uL (1.0-4.8); Lymphocytes % (A) 20 %; MCH 32.2 pg (25.0-35.0); MCV 94.6 fL (80.0-100.0); Mean Platelet Volume 7.7; Monocytes # (A) 0.4 k/uL (0-1.0); Monocytes % (A) 9 %; Neutrophils # (A) 2.9 k/uL (1.3-7.7); Neutrophils % (A) 65 %; Platelet Count 200 k/uL (150-450); RBC 4.55 m/uL (4.30-5.90); RDW 12.8 % (11.5-15.5); WBC 4.5 k/uL (3.8-10.6)
[2020-08-12 14:56] LABS: Albumin 4.2 g/dL (3.5-5.0); Calcium 9.1 mg/dL (8.4-10.2); Magnesium 1.6 mg/dL (1.6-2.3); Potassium 4.1 mmol/L (3.5-5.1); Total Bilirubin 0.2 mg/dL (0.2-1.3); Total Protein 7.1 g/dL (6.3-8.2)
--- NOTE | 2020-08-12 15:02 | XR ---
EXAMINATION TYPE: XR chest 2V DATE OF EXAM: 08/12/2020 COMPARISON: 05/02/2020 HISTORY: Shortness of breath TECHNIQUE: Frontal and lateral views of the chest are obtained. FINDINGS: Scattered senescent parenchymal changes noted. Hyperinflation compatible with COPD. No evidence for infiltrate. No evidence for atelectasis. Heart size is stable. Mediastinal structures are stable and grossly unremarkable. No evidence for hilar prominence. Degenerative changes dorsal spine. IMPRESSION: 1. No evidence for acute pulmonary disease.
[2020-08-12 15:03] LABS: D-Dimer 0.55 mg/L FEU (<0.60); INR 0.9 (<1.2); Partial Thromboplastin Time 25.2 sec (22.0-30.0); Prothrombin Time 10.2 sec (9.0-12.0)
--- NOTE | 2020-08-12 15:22 | CT ---
EXAMINATION TYPE: CT brain wo con DATE OF EXAM: 08/12/2020 COMPARISON: 11/25/2016 HISTORY: Confusion CT DLP: 1084.[address] of the brain was performed. The ventricles, basal cisterns and sulci overlying the cerebral convexities demonstrate mild enlargem ent. There is no evidence for intracranial hemorrhage or sulcal effacement. There is decreased attenuation about the periventricular white matter and deep white matter of both c erebral hemispheres, compatible with chronic small vessel ischemia. Differential diagnosis does inclu de demyelination. No mass effects are seen.No midline shift. Osseous calvarium is intact. If symptoms persist consider MRI. IMPRESSION: 1. Age related atrophic and chronic small vessel ischemic change without acute intracranial process s een at this time.
== END 2020-08-12 17:17 | disposition left against medical advice (07) ==
LOC: EC 14:05
DX: R55 Syncope and collapse (principal); R07.89 Other chest pain; R53.83 Other fatigue; J44.9 Chronic obstructive pulmonary disease, unspecified; M19.90 Unspecified osteoarthritis, unspecified site; E78.5 Hyperlipidemia, unspecified; I10 Essential (primary) hypertension; I25.2 Old myocardial infarction; Z79.82 Long term (current) use of aspirin; Z87.891 Personal history of nicotine dependence
CPT/HCPCS: 36415; 70450; 71046; 80053; 82550; 83690; 83735; 83880; 84484; 85025; 85379; 85610; 85730; 93005; 99285

== ENCOUNTER 2020-08-14 14:38 | Inpatient (IN) | payer OTHER ==
[2020-08-14] MEDS ORDERED: SODIUM CHLORIDE 0.9% 500 ML 500 ML IV STA (15:07)
[2020-08-14 15:21] LABS: Basophils # (A) 0.1 k/uL (0-0.2); Basophils % (A) 1 %; Eosinophils # (A) 0.1 k/uL (0-0.7); Eosinophils % (A) 1 %; HCT 44.4 % (39.0-53.0); Lymphocytes # (A) 1.4 k/uL (1.0-4.8); Lymphocytes % (A) 24 %; MCH 31.8 pg (25.0-35.0); MCHC 33.8 g/dL (31.0-37.0); Mean Platelet Volume 8.3; Monocytes # (A) 0.5 k/uL (0-1.0); Monocytes % (A) 8 %; Neutrophils # (A) 3.6 k/uL (1.3-7.7); Neutrophils % (A) 64 %; Platelet Count 197 k/uL (150-450); RBC 4.72 m/uL (4.30-5.90); RDW 12.7 % (11.5-15.5); WBC 5.6 k/uL (3.8-10.6)
[2020-08-14 15:31] LABS: Albumin 4.3 g/dL (3.5-5.0); Calcium 9.4 mg/dL (8.4-10.2); Magnesium 1.5 mg/dL (1.6-2.3); Potassium 4.8 mmol/L (3.5-5.1); Total Bilirubin 0.4 mg/dL (0.2-1.3); Total Protein 7.4 g/dL (6.3-8.2)
--- NOTE | 2020-08-14 15:31 | ED ---
General Adult HPI - General Chief complaint: Syncope Stated complaint: Syncope Time Seen by Provider: 08/14/20 14:41 Source: patient, EMS, RN notes reviewed, old records reviewed Mode of arrival: EMS Limitations: no limitations - History of Present Illness Initial comments: 60-year-old male presents for evaluation of syncopal episode. Patient was at [facility], he was about to begin cooking when he passed out and was unconscious for approximately 3 minutes. He denies head injury or pain complaints. He denied any preceding chest pain or dyspnea. Denied focal numbness or weakness. Denied abdominal pain nausea vomiting. He states been eating and drinking normally. He has history of syncopal episode several days ago. He is scheduled for heart catheterization and has followed recently with his vp [facility]. - Related Data Home Medications Medication Instructions Recorded Confirmed Spironolactone [Aldactone] 12.5 mg PO DAILY 02/25/20 08/14/20 Cholecalciferol [Vitamin D3 (25 25 mcg PO DAILY 08/12/20 08/14/20 Mcg = 1000 Iu)] Loperamide HCl [Imodium A-D] 2 mg PO ACHS PRN 08/12/20 08/14/20 Vitamin B Complex 1 cap PO DAILY 08/12/20 08/14/20 Metoprolol Tartrate [Lopressor] 50 mg PO BID 08/14/20 08/14/20 Sacubitril/Valsartan [Entresto 24 1 tab PO BID 08/14/20 08/14/20 mg-26 mg Tablet] Previous Rx's Medication Instructions Recorded Aspirin 81 mg PO DAILY 90 Days #90 chew 02/29/20 Atorvastatin [Lipitor] 40 mg PO DAILY 90 Days #90 tab 02/29/20 Furosemide [Lasix] 40 mg PO BID@0900,1600 90 Days 02/29/20 #180 tab Allergies Allergy/AdvReac Type Severity Reaction Status Date / Time No Known Allergies Allergy Verified 08/14/20 16:52 Review of Systems ROS Statement: Those systems with pertinent positive or pertinent negative responses have been documented in the HPI. ROS Other: All systems not noted in ROS Statement are negative. Past Medical History Past Medical History: COPD, Hyperlipidemia, Hypertension, Myocardial Infarction ([place]), Osteoarthritis ([place]) Additional Past Medical History / Comment(s): arthritis, "shakes", syncope. EF- 20/25% Last Myocardial Infarction Date:: 02/25/20 History of Any Multi-Drug Resistant Organisms: None Reported Past Surgical History: Appendectomy, Heart Catheterization Past Anesthesia/Blood Transfusion Reactions: No Reported Reaction Past Psychological History: No Psychological Hx Reported Smoking Status: Former smoker Past Alcohol Use History: None Reported Past Drug Use History: None Reported - Past Family History Mother Family Medical History: Cancer Additional Family Medical History / Comment(s): Cancer in jaw Father Family Medical History: COPD General Exam Limitations: no limitations General appearance: alert, in no apparent distress Head exam: Present: atraumatic, normocephalic Eye exam: Present: normal appearance, PERRL ENT exam: Present: mucous membranes dry Neck exam: Present: normal inspection. Absent: tenderness, meningismus Respiratory exam: Present: normal lung sounds bilaterally. Absent: respiratory distress, wheezes, rales Cardiovascular Exam: Present: regular rate, normal rhythm GI/Abdominal exam: Present: soft. Absent: distended, tenderness, guarding Extremities exam: Present: normal inspection, normal capillary refill. Absent: calf tenderness Neurological exam: Present: alert, oriented X3, CN II-XII intact. Absent: motor sensory deficit Psychiatric exam: Present: normal affect, normal mood Skin exam: Present: warm, dry, intact. Absent: cyanosis, diaphoretic Course Vital Signs 08/14/20 08/14/20 08/14/20 14:45 15:48 17:00 Temperature 98.0 F Pulse Rate 71 79 71 Respiratory 20 16 20 Rate Blood Pressure 102/70 99/56 96/56 O2 Sat by Pulse 94 L 100 99 Oximetry EKG Findings - EKG Comments: EKG Findings:: Normal sinus rhythm T-wave inversion in the inferior leads, no ST segment elevation, rate of 69, SC interval 140, QRS duration 92, QTC 460. Medical Decision Making - Medical Decision Making 60-year-old male presenting with syncopal episode, repeat episodes in the past 48 hours. EKG: Sinus rhythm without ST segment elevation. CXR negative for acute cardiac primary findings. Normal CBC, CMP showing a mild elevation in serum creatinine, elevated blood glucose, magnesium 1.5 which is replaced. Given the recurrent nature of his syncope will be admitted for telemetry, echo, cardiology consultation. Case discussed with Dr. Burgos who will admit. - Lab Data Result diagrams: 08/14/20 15:12 08/14/20 15:12 Lab Results 08/14/20 08/14/20 08/14/20 Range/Units 15:12 15:12 15:12 WBC 5.6 (3.8-10.6) k/uL RBC 4.72 (4.30-5.90) m/uL Hgb 15.0 (13.0-17.5) gm/dL Hct 44.4 (39.0-53.0) % MCV 94.0 (80.0-100.0) fL MCH 31.8 (25.0-35.0) pg MCHC 33.8 (31.0-37.0) g/dL RDW 12.7 (11.5-15.5) % Plt Count 197 (150-450) k/uL MPV 8.3 Neutrophils % 64 % Lymphocytes % 24 % Monocytes % 8 % Eosinophils % 1 % Basophils % 1 % Neutrophils # 3.6 (1.3-7.7) k/uL Lymphocytes # 1.4 (1.0-4.8) k/uL Monocytes # 0.5 (0-1.0) k/uL Eosinophils # 0.1 (0-0.7) k/uL Basophils # 0.1 (0-0.2) k/uL PT 9.5 (9.0-12.0) sec INR 0.9 (<1.2) APTT 23.4 (22.0-30.0) sec Sodium 135 L (137-145) mmol/L Potassium 4.8 (3.5-5.1) mmol/L Chloride 99 (98-107) mmol/L Carbon Dioxide 28 (22-30) mmol/L Anion Gap 8 mmol/L BUN 19 (9-20) mg/dL Creatinine 1.29 H (0.66-1.25) mg/dL Est GFR (CKD-EPI)AfAm 70 (>60 ml/min/1.73 sqM) Est GFR (CKD-EPI)NonAf 60 (>60 ml/min/1.73 sqM) Glucose 115 H (74-99) mg/dL Calcium 9.4 (8.4-10.2) mg/dL Magnesium 1.5 L (1.6-2.3) mg/dL Total Bilirubin 0.4 (0.2-1.3) mg/dL AST 29 (17-59) U/L ALT 24 (4-49) U/L Alkaline Phosphatase 63 (38-126) U/L Troponin I (0.000-0.034) ng/mL Total Protein 7.4 (6.3-8.2) g/dL Albumin 4.3 (3.5-5.0) g/dL 08/14/20 Range/Units 15:12 WBC (3.8-10.6) k/uL RBC (4.30-5.90) m/uL Hgb (13.0-17.5) gm/dL Hct (39.0-53.0) % MCV (80.0-100.0) fL MCH (25.0-35.0) pg MCHC (31.0-37.0) g/dL RDW (11.5-15.5) % Plt Count (150-450) k/uL MPV Neutrophils % % Lymphocytes % % Monocytes % % Eosinophils % % Basophils % % Neutrophils # (1.3-7.7) k/uL Lymphocytes # (1.0-4.8) k/uL Monocytes # (0-1.0) k/uL Eosinophils # (0-0.7) k/uL Basophils # (0-0.2) k/uL PT (9.0-12.0) sec INR (<1.2) APTT (22.0-30.0) sec Sodium (137-145) mmol/L Potassium (3.5-5.1) mmol/L Chloride (98-107) mmol/L Carbon Dioxide (22-30) mmol/L Anion Gap mmol/L BUN (9-20) mg/dL Creatinine (0.66-1.25) mg/dL Est GFR (CKD-EPI)AfAm (>60 ml/min/1.73 sqM) Est GFR (CKD-EPI)NonAf (>60 ml/min/1.73 sqM) Glucose (74-99) mg/dL Calcium (8.4-10.2) mg/dL Magnesium (1.6-2.3) mg/dL Total Bilirubin (0.2-1.3) mg/dL AST (17-59) U/L ALT (4-49) U/L Alkaline Phosphatase (38-126) U/L Troponin I 0.034 (0.000-0.034) ng/mL Total Protein (6.3-8.2) g/dL Albumin (3.5-5.0) g/dL Disposition Clinical Impression: Nonischemic cardiomyopathy, Syncope Disposition: ADMITTED IP TO THIS HOSP Condition: Stable Is patient prescribed a controlled substance at d/c from ED?: No Referrals: Felix Burgos MD [Primary Care Provider] - 1-2 days Decision to Admit Reason: Admit from EC Decision Date: 08/14/20 Decision Time: 17:47
--- NOTE | 2020-08-14 15:41 | XR ---
EXAMINATION TYPE: XR chest 2V DATE OF EXAM: 08/14/2020 CLINICAL HISTORY: syncope. TECHNIQUE: Frontal and lateral view of the chest. COMPARISON: 08/12/2020 FINDINGS: Left-sided single-chamber AICD redemonstrated. The cardiomediastinal silhouette is within n ormal limits for size. Pulmonary vasculature is normal. There is no focal air space opacity. No pleu ral effusion. No pneumothorax seen. Degenerative changes of the spine. IMPRESSION: No acute cardiopulmonary process.
[2020-08-14 15:59] LABS: INR 0.9 (<1.2); Partial Thromboplastin Time 23.4 sec (22.0-30.0); Prothrombin Time 9.5 sec (9.0-12.0)
[2020-08-14] MEDS ORDERED: SODIUM CHLORIDE 0.9% 500 ML 500 ML IV ONE (16:59)
[2020-08-14] MEDS ORDERED: MAGNESIUM SULFATE-D5W PMX 1 GM in DEXTROSE/WATER 1 100ML.BAG IVPB ONE (16:59)
[2020-08-14] MEDS ORDERED: NALOXONE 0.4 MG/ML 1 ML VIAL IV PRN (17:44)
[2020-08-14 17:52] LABS: Appearance,Urine Clear (Clear); Bilirubin,Urine Negative (Negative); Blood,Urine Negative (Negative); Color,Urine Yellow; Glucose,Urine (UA) Negative (Negative); Ketones,Urine Negative (Negative); Leukocyte Esterase,Urine Negative (Negative); Nitrite,Urine Negative (Negative); PH, Urine 5.5 (5.0-8.0); Protein,Urine Negative (Negative); Urobilinogen,Urine <2.0 mg/dL (<2.0)
[2020-08-14] MEDS: SODIUM CHLORIDE 0.9% 1,000 ML IV SCH (18:44)
[2020-08-14] MEDS ORDERED: ASCORBIC ACID 500 MG TAB PO SCH (23:00)
[2020-08-14] MEDS ORDERED: CHOLECALCIFEROL 25 MCG (1000 IU) TABLET PO SCH (23:15)
[2020-08-14] MEDS: ACETAMINOPHEN TAB 325 MG TAB PO PRN (23:51)
[2020-08-14] MEDS: ASCORBIC ACID 500 MG TAB PO SCH (23:51)
[2020-08-14] MEDS: DEXAMETHASONE SOD PHOSPHATE 10 MG/ML 1 ML VIAL IV SCH (23:51)
[2020-08-15] MEDS: METOPROLOL TARTRATE 50 MG TAB PO SCH ×3 (00:37→20:39)
--- NOTE | 2020-08-15 08:36 | US ---
EXAMINATION TYPE: US venous doppler duplex UE LT DATE OF EXAM: 08/15/2020 COMPARISON: NONE CLINICAL HISTORY: Possible axillary thrombus. SIDE PERFORMED: Left IJV, axillary, subclavian, brachial, basilic, cephalic, radial , and ulnar veins imaged. Left internal jugular vein normal. Thrombus is within the left subclavian vein there is some echogeni c material within the left axillary vein. However, augmentation and flow can be identified. Axillary vein appears compressible. Brachial vein appears compressible basilic vein appears normal Left Arm: Positive for DVT. Unable to prove flow in mid subclavian vein, there are echoes within that could represent either thrombus or rouleaux flow. IMPRESSION: 1. Left upper extremity deep venous thrombosis.
[2020-08-15] MEDS ORDERED: HEPARIN SODIUM 1,000 UN/ML (10ML VL) IV ONE (08:55)
[2020-08-15] MEDS ORDERED: HEPARIN SODIUM 1,000 UN/ML (10ML VL) IV PRN (08:57)
[2020-08-15] MEDS ORDERED: SACUBITRIL/VALSARTAN 24 MG-26 MG TABLET PO SCH (09:00)
[2020-08-15] MEDS ORDERED: NON FORMULARY DRUG (Vitamin B Complex [Vitamin B Complex] 1 EACH Capsule) PO SCH (09:00)
[2020-08-15] MEDS ORDERED: ENOXAPARIN 60 MG/0.6 ML SYRINGE SQ SCH (09:00)
[2020-08-15] MEDS ORDERED: FUROSEMIDE 40 MG TAB PO SCH (09:00)
[2020-08-15] MEDS: ASPIRIN 81 MG PO SCH (09:17)
[2020-08-15] MEDS: DEXAMETHASONE SOD PHOSPHATE 10 MG/ML 1 ML VIAL IV SCH (09:17)
[2020-08-15] MEDS: ATORVASTATIN 40 MG TAB PO SCH (09:17)
[2020-08-15] MEDS: ASCORBIC ACID 500 MG TAB PO SCH (09:17)
[2020-08-15] MEDS: SPIRONOLACTONE 25 MG TAB PO SCH (09:17)
[2020-08-15] MEDS: ZINC SULFATE 220 MG CAP PO SCH (09:17)
[2020-08-15] MEDS: CHOLECALCIFEROL 25 MCG (1000 IU) TABLET PO SCH (09:17)
[2020-08-15] MEDS: SACUBITRIL/VALSARTAN 24 MG-26 MG TABLET PO SCH ×2 (09:18→20:39)
[2020-08-15] MEDS: HEPARIN SOD,PORK IN 0.45% NACL 25,000 UNIT in 0.45% NACL 1 250ML.BAG IV SCH (09:18)
--- NOTE | 2020-08-15 09:39 | HP ---
HISTORY AND PHYSICAL HISTORY OF PRESENT ILLNESS: This is a 60-year-old white male who came to the emergency room for syncopal episode at the [facility], he began to cook and became unconscious for 3 minutes. No chest pain, shortness of breath. No nausea, vomiting. He has had history of syncopal episode several days ago, supposed to have a heart catheterization next week. Apparently ultrasound shows positive DVT in his left upper arm MEDICATIONS: Home medicines: Aldactone 12.5 daily, vitamin D 1000 daily, Lopressor 50 b.i.d., Entresto one tab b.i.d. 2426. ALLERGIES: None. REVIEW OF SYMPTOMS: 14-point review of system negative except for mentioned in HPI. PAST MEDICAL HISTORY: COPD, dyslipidemia, hypertension, myocardial infarction, osteoarthritis, ejection fraction 20 to 25%. PAST SURGICAL HISTORY: Appendectomy and heart catheterization. SOCIAL HISTORY: Former smoker. No alcohol. No drugs. FAMILY HISTORY: Mother jaw cancer. Father COPD. PHYSICAL EXAM: Temp 98, pulse 71 to 79, respiratory 16-20, blood pressure 96 to 102 over 56 to 70, O2 94-100 on room air. CARDIOVASCULAR: S1, S2. LUNGS: Fairly normal breathing. OPHTHALMOLOGIC: Pupils equal, round, reactive to light and accommodation. PSYCH: Fair mood and affect. NEUROLOGIC: Alert and oriented x3. SKIN: Warm, dry, intact. OPHTHALMOLOGIC: Pupils equal, round, reactive. EKG sinus rhythm. ASSESSMENT: 1. Syncope. 2. Positive Covid. 3. Left upper arm apparently deep vein thrombosis. Cardiology was supposed to do a heart catheterization next week. We will see what they have to say. Treat for Covid and DVT in the meantime. Prognosis guarded. Nonischemic cardiomyopathy, syncope. Please see further orders. MMODL / IJN: [id number] /
--- NOTE | 2020-08-15 10:42 | P.CNPUL ---
History of Present Illness Consult date: 08/15/20 Reason for consult: dyspnea Chief complaint: Syncopal episode History of present illness: This is a 60-year-old male with prior medical history of chronic systolic dysfunction and failure status post AICD, patient came into the hospital with frequent syncopal episode which were transient short-lived, patient also felt that he is more short of breath than baseline, patient has a baseline ejection fraction 20%, patient is supposed to get a cardiac cath and angiogram which is pending, currently patient is on maximum medical therapy for heart failure, patient has swelling of the left upper extremity duplex ultrasound of the upper extremity came back positive for DVT involving left subclavian vein, patient has testing for covert came back positive as well, chest x-ray is significant for cardiomegaly and no active infiltrate seen patient however is on room air but visibly short of breath, computed tomography scan of the chest is pending, currently patient is on IV heparin, his labs are significant for mild neut ropenia slightly elevated BUN and creatinine of 19 and 1.29, patient is afebrile slightly tachypneic blood pressure low normal ranging from 90-100 systolic with diastolics 60-65, Review of Systems All systems: negative Past Medical History Past Medical History: COPD, Hyperlipidemia, Hypertension, Myocardial Infarction ([place]), Osteoarthritis (OA) Additional Past Medical History / Comment(s): arthritis, "shakes", syncope. EF- 20/25% Last Myocardial Infarction Date:: 02/25/20 History of Any Multi-Drug Resistant Organisms: None Reported Past Surgical History: Appendectomy, Heart Catheterization, Pacemaker Past Anesthesia/Blood Transfusion Reactions: No Reported Reaction Type of Cardiac Device: Permanent Pacemaker Device Placement Date:: 05/01/20 Past Psychological History: No Psychological Hx Reported Smoking Status: Former smoker Past Alcohol Use History: None Reported Additional Past Alcohol Use History / Comment(s): QUIT SMOKING 02/2020 Past Drug Use History: None Reported - Past Family History Mother Family Medical History: Cancer Additional Family Medical History / Comment(s): Cancer in jaw Father Family Medical History: COPD Medications and Allergies Home Medications Medication Instructions Recorded Confirmed Type Spironolactone [Aldactone] 12.5 mg PO DAILY 02/25/20 08/14/20 History Aspirin 81 mg PO DAILY 90 Days #90 chew 02/29/20 08/14/20 Rx Atorvastatin [Lipitor] 40 mg PO DAILY 90 Days #90 tab 02/29/20 08/14/20 Rx Furosemide [Lasix] 40 mg PO BID@0900,1600 90 Days 02/29/20 08/14/20 Rx #180 tab Cholecalciferol [Vitamin D3 (25 25 mcg PO DAILY 08/12/20 08/14/20 History Mcg = 1000 Iu)] Loperamide HCl [Imodium A-D] 2 mg PO ACHS PRN 08/12/20 08/14/20 History Vitamin B Complex 1 cap PO DAILY 08/12/20 08/14/20 History Metoprolol Tartrate [Lopressor] 50 mg PO BID 08/14/20 08/14/20 History Sacubitril/Valsartan [Entresto 24 1 tab PO BID 08/14/20 08/14/20 History mg-26 mg Tablet] Allergies Allergy/AdvReac Type Severity Reaction Status Date / Time No Known Allergies Allergy Verified 08/14/20 16:52 Physical Exam Vitals: Vital Signs Temp Pulse Pulse Resp BP BP Pulse Ox 08/15/20 08:25 97 08/15/20 05:42 97.5 F L 65 16 96/60 96 08/15/20 00:58 98.8 F 86 18 114/62 95 08/14/20 22:41 100.6 F H 08/14/20 20:00 99.5 F 74 18 99/62 98 08/14/20 19:16 98.4 F 78 20 101/65 99 08/14/20 18:00 76 18 106/52 99 08/14/20 17:00 71 20 96/56 99 08/14/20 15:48 79 16 99/56 100 08/14/20 14:45 98.0 F 71 20 102/70 94 L Intake and Output 08/14/20 08/15/20 08/15/20 22:59 06:59 14:59 Intake Total 100 Balance 100 Intake: Oral 100 Other: Voiding Method Urinal # Voids 2 1 Weight 72.575 kg - Constitutional General appearance: disheveled, mild distress - EENT Eyes: PERRLA Ears: bilateral: normal - Neck Carotids: bilateral: upstroke normal Thyroid: bilateral: normal size - Respiratory Respiratory: bilateral: CTA - Cardiovascular Rhythm: regular Heart sounds: normal: S1, S2 - Gastrointestinal General gastrointestinal: normal bowel sounds, soft - Neurologic Neurologic: CNII-XII intact - Musculoskeletal Musculoskeletal: gait normal, generalized weakness, strength equal bilaterally - Psychiatric Psychiatric: A&O x's 3, appropriate affect, intact judgment & insight Results - Laboratory Findings CBC and BMP: 08/14/20 15:12 08/14/20 15:12 PT/INR, D-dimer PT 9.5 sec (9.0-12.0) 08/14/20 15:12 INR 0.9 (<1.2) 08/14/20 15:12 D-Dimer 0.53 mg/L FEU (<0.60) 08/15/20 04:47 Abnormal lab findings: Abnormal Labs 08/14/20 08/14/20 08/15/20 15:12 18:12 04:47 Sodium 135 L Creatinine 1.29 H Glucose 115 H Magnesium 1.5 L C-Reactive Protein 1.0 H Coronavirus (PCR) Detected A - Diagnostic Findings Chest x-ray: report reviewed, image reviewed Assessment and Plan Assessment: Syncopal episode likely cardiovascular in etiology workup is in progress cardiovascular services have been consulted Covid positive infection, patient diagnosed one day ago with symptoms for a few days Thrombosis of left subclavian vein Severe systolic heart failure with baseline cardiomyopathy with ejection fraction of 15-20% Hypertension hypertensive cardiovascular disease Dyslipidemia Baseline COPD Chronic kidney disease, however her renal functions were normal in April 2020 Plan: IV Decadron Will review computed tomography scan of the chest if infiltrates are present patient is hypoxic consider starting IV REMdesivir Further evaluation pending as per cardiovascular services IV heparin Time with Patient: Greater than 30
--- NOTE | 2020-08-15 10:55 | CT ---
CT CHEST FOR PULMONARY EMBOLISM. EXAMINATION TYPE: CT angio chest DATE OF EXAM: 08/15/2020 INDICATION: PE CT DLP: 326.3 mGycm, Automated exposure control for dose reduction was used. CONTRAST: Patient injected with 64 mL of Isovue 370. COMPARISON: 02/26/2020 TECHNIQUE: CT of the chest is performed on a spiral scan at 2 mm thick sections. Study is performed with intravenous contrast timed for evaluation for pulmonary embolism. This will limit additional po rtions of the evaluation. 3-D MIP images reconstructed by the technologist are reviewed on the compu ter in the coronal and sagittal planes. FINDINGS: No persistent filling defects are evident to suggest an acute pulmonary embolism. Contrast is injecte d on the right, patient's known left upper extremity deep venous thrombosis cannot be evaluated on th is exam. No mediastinal or hilar adenopathy enlarged by CT criteria is evident. The ascending aorta diameter at the level of the main pulmonary artery is 3.0 cm. The main pulmonary artery diameter at the bifur cation is 2.2 cm. Lung windows are clear. Limited CT section through the upper abdomen are unremarkable. Distal esophagus is at the upper limit s of normal for wall thickness. Consider follow-up. IMPRESSIONS: 1. No acute pulmonary embolism. 2. Distal esophageal wall thickening. Consider follow-up patient stated.
--- NOTE | 2020-08-15 13:40 | ECHOF ---
Referral Reason:syncope MEASUREMENTS -------- HEIGHT: 167.6 cm WEIGHT: 72.6 kg BP: 96/20 RVIDd: 3.2 cm (< 3.3) IVSd: 1.5 cm (0.6 - 1.1) LVIDd: 5.6 cm (3.9 - 5.3) LVPWd: 1.5 cm (0.6 - 1.1) IVSs: 1.9 cm LVIDs: 4.8 cm LVPWs: 1.6 cm LA Diam: 3.4 cm (2.7 - 3.8) LAESV Index (A-L): 25.67 ml/m Ao Diam: 3.4 cm (2.0 - 3.7) AV Cusp: 2.2 cm (1.5 - 2.6) MV EXCURSION: 9.588 mm (> 18.000) MV EF SLOPE: 37 mm/s (70 - 150) EPSS: 1.9 cm MV E Carloz: 0.48 m/s MV DecT: 398 ms MV A Carloz: 0.78 m/s MV E/A Ratio: 0.61 RAP: 15.00 mmHg RVSP: 33.14 mmHg FINDINGS -------- Paced rhythm. This was a technically adequate study. The left ventricular size is normal. There is moderate concentric left ventricular hypertrophy. O verall left ventricular systolic function is severely impaired with, an EF between 20 - 25 %. The right ventricle is mildly enlarged. Normal LA size by volume 22+/-6 ml/m2. The right atrium is normal in size. Interatrial and interventricular septum intact. There is mild aortic valve sclerosis. The mitral valve is normal. Mild tricuspid regurgitation present. There is borderline pulmonary hypertension. The right ventr icular systolic pressure, as measured by Doppler, is 33.14mmHg. There is no pulmonic regurgitation present. The aortic root size is normal. Normal inferior vena cava with less than 50% inspiratory collapse consistent with estimated right atr ial pressure of 15 mmHg. There is no pericardial effusion. CONCLUSIONS -------- 1. Paced rhythm. 2. The left ventricular size is normal. 3. There is moderate concentric left ventricular hypertrophy. 4. The right ventricle is mildly enlarged. 5. There is mild aortic valve sclerosis. 6. Mild tricuspid regurgitation present. 7. There is borderline pulmonary hypertension. 8. The right ventricular systolic pressure, as measured by Doppler, is 33.14mmHg. 9. Normal inferior vena cava with less than 50% inspiratory collapse consistent with estimated right atrial pressure of 15 mmHg. 10. There is no pericardial effusion. AUTOMATION CONTROL TECHNICIAN: Wniter Iqbal RDCS
[2020-08-15] MEDS: FUROSEMIDE 20 MG TAB PO SCH (15:29)
[2020-08-15] MEDS: SODIUM CHLORIDE 0.9% 1,000 ML IV SCH (15:36)
--- NOTE | 2020-08-15 17:18 | CONS ---
CONSULTATION HISTORY OF PRESENT ILLNESS: Phil Yap is a 60-year-old gentleman with a history of alcoholism and smoking, who finally quit alcohol and smoking and also had severe significant nonischemic cardiomyopathy who underwent ICD placement in April of this year. On April 30, he had a single-chamber ICD for nonischemic cardiomyopathy for primary prevention of ventricular fibrillation. He was on a combination of Entresto, atorvastatin, Aldactone, and beta shahram. However, this gentleman has stopped taking all his medications for the last 2 weeks or so and came into the office yesterday with complaints of having shortness of breath and had a questionable syncopal episode. I noted that there was swelling of the left upper extremity and I was concerned about axillary artery DVT. Advised to have a venogram performed and we were making arrangements to be done on Monday. However, the device has been checked at that time. There was no evidence of any significant arrhythmia. However, he came into the hospital through the emergency room last evening with complaints of having had syncope while he was cooking at [employer]. It is unclear about the details of company. He states he was unconscious for 3 minutes, did not lose any bladder or bowel control. History is very sketchy. There were no personal witness to this episode. However after arrival, he has been in a pretty much paced rhythm without any significant arrhythmia. He seems to be resting comfortably without symptoms. PAST MEDICAL HISTORY: 1. Nonischemic cardiomyopathy. 2. Status post ICD on the left side with possible thrombosis of the left axillary vein. 3. History of alcoholism. 4. History of smoking. MEDICATIONS: These include: Lipitor, Lasix 40 mg b.i.d., Entresto 1 tab b.i.d., Aldactone 12.5 mg daily, metoprolol tartrate 50 mg b.i.d. PHYSICAL EXAMINATION: On examination, blood pressure is 108/70, pulse rate 70 per minute. There is JVD of 1 cm. No carotid bruit. S1-S2 heard normally. Short systolic murmur noted. Lungs are clear. Abdomen is soft. Left upper extremity shows some enlargement compared to the right with some prominent veins suggestive of axillary vein thrombosis. Lower extremities reveal diminished pulses. Central nervous system normal. EKG revealed a sinus mechanism with nonspecific T-wave abnormality in the inferior leads. IMPRESSION: 1. Syncope of unclear etiology. We will continue monitoring. 2. 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 3. Nonischemic cardiomyopathy. RECOMMENDATIONS: Patient's D-dimer was normal, but venous Doppler suggested left axillary DVT. There is no evidence of any pulmonary embolism based on the CT angiogram that was performed earlier today. There is some distal esophageal wall thickness. I am suggesting that I will seek a vascular surgery consult and I personally spoke to Dr. Bosch and Dr. Hermosillo and requested her to see the patient. I would prefer if there is a way of thrombolysing the axillary vein to improve flow because patient has a device with a single lead going through the left axillary vein. Discussed my thoughts in detail with the patient. I will await further input from vascular surgery. Prognosis remains guarded. MMODL / IJN: [id number] /
[2020-08-16] MEDS: HEPARIN SOD,PORK IN 0.45% NACL 25,000 UNIT in 0.45% NACL 1 250ML.BAG IV SCH (05:49)
[2020-08-16] MEDS: ZINC SULFATE 220 MG CAP PO SCH (07:43)
[2020-08-16] MEDS: ASPIRIN 81 MG PO SCH (07:43)
[2020-08-16] MEDS: FUROSEMIDE 20 MG TAB PO SCH ×2 (07:43→14:58)
[2020-08-16] MEDS: SPIRONOLACTONE 25 MG TAB PO SCH (07:44)
[2020-08-16] MEDS: METOPROLOL TARTRATE 50 MG TAB PO SCH ×2 (07:44→22:46)
[2020-08-16] MEDS: ATORVASTATIN 40 MG TAB PO SCH (07:44)
[2020-08-16] MEDS: ACETAMINOPHEN TAB 325 MG TAB PO PRN (07:45)
[2020-08-16] MEDS: ASCORBIC ACID 500 MG TAB PO SCH (07:45)
[2020-08-16] MEDS: CHOLECALCIFEROL 25 MCG (1000 IU) TABLET PO SCH (07:45)
[2020-08-16] MEDS: DEXAMETHASONE SOD PHOSPHATE 10 MG/ML 1 ML VIAL IV SCH (07:46)
[2020-08-16] MEDS: SACUBITRIL/VALSARTAN 24 MG-26 MG TABLET PO SCH ×2 (07:46→22:46)
[2020-08-16 09:04] LABS: Basophils % (A) 0 %; Eosinophils % (A) 0 %; HCT 41.1 % (39.0-53.0); Lymphocytes # (A) 1.1 k/uL (1.0-4.8); Lymphocytes % (A) 7 %; MCH 31.7 pg (25.0-35.0); MCV 93.5 fL (80.0-100.0); Mean Platelet Volume 8.3; Monocytes # (A) 0.5 k/uL (0-1.0); Monocytes % (A) 3 %; Neutrophils # (A) 13.5 k/uL (1.3-7.7); Neutrophils % (A) 89 %; Platelet Count 181 k/uL (150-450); RDW 12.6 % (11.5-15.5); WBC 15.2 k/uL (3.8-10.6)
[2020-08-16 09:24] LABS: ALT 21 U/L (4-49); AST 23 U/L (17-59); African American GFR (CKD) >90 (>60 ml/min/1.73 sqM); Albumin 3.4 g/dL (3.5-5.0); Albumin/Globulin Ratio 1.3; Alkaline Phosphatase 58 U/L (38-126); Anion Gap 8 mmol/L; Blood Urea Nitrogen 16 mg/dL (9-20); Calcium 8.5 mg/dL (8.4-10.2); Carbon Dioxide 25 mmol/L (22-30); Chloride 105 mmol/L (98-107); Globulin 2.7 g/dL; Glucose 114 mg/dL (74-99); Non-African American GFR(CKD) >90 (>60 ml/min/1.73 sqM); Potassium 4.3 mmol/L (3.5-5.1); Sodium 138 mmol/L (137-145); Total Bilirubin 0.2 mg/dL (0.2-1.3); Total Protein 6.1 g/dL (6.3-8.2)
--- NOTE | 2020-08-16 10:05 | P.GSCN ---
History of Present Illness Consult date: 08/16/20 History of present illness: Phil is a 60-year-old male we are asked to see regarding an upper extremity DVT associated with his ICD. He has history of alcohol abuse and smoking historically and continues to have a severe nonischemic cardiomyopathy. Back in April of this year he had an ICD placement. He was found to have some swelling in his left upper extremity on office evaluation. He also had some issues with syncope and shortness of breath. He was sent here to the hospital and evaluated. Found be COVID positive and had an accident subclavian DVT on th e left. He has no history of DVT that he is aware of. No family history that he is concerned about. His left upper extremity swelling is much improved since he has been here. Past Medical History Past Medical History: COPD, Hyperlipidemia, Hypertension, Myocardial Infarction (TN), Osteoarthritis (OA) Additional Past Medical History / Comment(s): arthritis, "shakes", syncope. EF- 20/25% Last Myocardial Infarction Date:: 02/25/20 History of Any Multi-Drug Resistant Organisms: None Reported Past Surgical History: Appendectomy, Heart Catheterization, Pacemaker Past Anesthesia/Blood Transfusion Reactions: No Reported Reaction Type of Cardiac Device: Permanent Pacemaker Device Placement Date:: 05/01/20 Past Psychological History: No Psychological Hx Reported Smoking Status: Former smoker Past Alcohol Use History: None Reported Additional Past Alcohol Use History / Comment(s): QUIT SMOKING 02/2020 Past Drug Use History: None Reported - Past Family History Mother Family Medical History: Cancer Additional Family Medical History / Comment(s): Cancer in jaw Father Family Medical History: COPD Medications and Allergies Home Medications Medication Instructions Recorded Confirmed Type Spironolactone [Aldactone] 12.5 mg PO DAILY 02/25/20 08/14/20 History Aspirin 81 mg PO DAILY 90 Days #90 chew 02/29/20 08/14/20 Rx Atorvastatin [Lipitor] 40 mg PO DAILY 90 Days #90 tab 02/29/20 08/14/20 Rx Furosemide [Lasix] 40 mg PO BID@0900,1600 90 Days 02/29/20 08/14/20 Rx #180 tab Cholecalciferol [Vitamin D3 (25 25 mcg PO DAILY 08/12/20 08/14/20 History Mcg = 1000 Iu)] Loperamide HCl [Imodium A-D] 2 mg PO ACHS PRN 08/12/20 08/14/20 History Vitamin B Complex 1 cap PO DAILY 08/12/20 08/14/20 History Metoprolol Tartrate [Lopressor] 50 mg PO BID 08/14/20 08/14/20 History Sacubitril/Valsartan [Entresto 24 1 tab PO BID 08/14/20 08/14/20 History mg-26 mg Tablet] Allergies Allergy/AdvReac Type Severity Reaction Status Date / Time No Known Allergies Allergy Verified 08/14/20 16:52 Surgical - Exam Vital Signs Temp Pulse Resp BP Pulse Ox 98.0 F 71 20 102/70 94 L 08/14/20 14:45 08/14/20 14:45 08/14/20 14:45 08/14/20 14:45 08/14/20 14:45 Genitals a pleasant cooperative male in no acute distress, poor dentition. HEENT is normal cephalic, atraumatic, excellent motion intact. Heart is essentially regular. Lungs are clear. Abdomen is soft. Extremity show no si gnificant clubbing cyanosis or edema. The left upper extremity has mild edema. Palpable radial pulses bilaterally. Normal mood and affect. Cranial nerves II through XII grossly intact Results Ultrasound is reviewed - Labs 08/16/20 08:22 08/16/20 08:22 Abnormal Lab Results - Last 24 Hours (Table) 08/15/20 08/16/20 08/16/20 Range/Units 16:04 00:33 08:22 WBC 15.2 H (3.8-10.6) k/uL Neutrophils # 13.5 H (1.3-7.7) k/uL APTT 184.0 H* 76.3 H (22.0-30.0) sec Glucose (74-99) mg/dL Total Protein (6.3-8.2) g/dL Albumin (3.5-5.0) g/dL 08/16/20 08/16/20 Range/Units 08:22 08:22 WBC (3.8-10.6) k/uL Neutrophils # (1.3-7.7) k/uL APTT 50.6 H (22.0-30.0) sec Glucose 114 H (74-99) mg/dL Total Protein 6.1 L (6.3-8.2) g/dL Albumin 3.4 L (3.5-5.0) g/dL Diabetes panel 08/16/20 Range/Units 08:22 Sodium 138 (137-145) mmol/L Potassium 4.3 (3.5-5.1) mmol/L Chloride 105 (98-107) mmol/L Carbon Dioxide 25 (22-30) mmol/L BUN 16 (9-20) mg/dL Creatinine 0.76 (0.66-1.25) mg/dL Glucose 114 H (74-99) mg/dL Calcium 8.5 (8.4-10.2) mg/dL AST 23 (17-59) U/L ALT 21 (4-49) U/L Alkaline Phosphatase 58 (38-126) U/L Total Protein 6.1 L (6.3-8.2) g/dL Albumin 3.4 L (3.5-5.0) g/dL Calcium panel 08/16/20 Range/Units 08:22 Calcium 8.5 (8.4-10.2) mg/dL Albumin 3.4 L (3.5-5.0) g/dL Pituitary panel 08/16/20 Range/Units 08:22 Sodium 138 (137-145) mmol/L Potassium 4.3 (3.5-5.1) mmol/L Chloride 105 (98-107) mmol/L Carbon Dioxide 25 (22-30) mmol/L BUN 16 (9-20) mg/dL Creatinine 0.76 (0.66-1.25) mg/dL Glucose 114 H (74-99) mg/dL Calcium 8.5 (8.4-10.2) mg/dL Adrenal panel 08/16/20 Range/Units 08:22 Sodium 138 (137-145) mmol/L Potassium 4.3 (3.5-5.1) mmol/L Chloride 105 (98-107) mmol/L Carbon Dioxide 25 (22-30) mmol/L BUN 16 (9-20) mg/dL Creatinine 0.76 (0.66-1.25) mg/dL Glucose 114 H (74-99) mg/dL Calcium 8.5 (8.4-10.2) mg/dL Total Bilirubin 0.2 (0.2-1.3) mg/dL AST 23 (17-59) U/L ALT 21 (4-49) U/L Alkaline Phosphatase 58 (38-126) U/L Total Protein 6.1 L (6.3-8.2) g/dL Albumin 3.4 L (3.5-5.0) g/dL Assessment and Plan Assessment: Left upper extremity axillary and subclavian DVT Cardiomyopathy status post ICD placement COVID + Plan: At this time I do not see any indication for the patient undergo venogram or further interventions. Continue IV and recreation and transitioning oral anticoagulation when able per medical team. I would continue him on a regular dose anticoagulation for 6 to 9 months than likely decrease to a maintenance dose due to the required an ongoing need for the ICD.
[2020-08-16] MEDS: SODIUM CHLORIDE 0.9% 1,000 ML IV SCH (11:51)
[2020-08-16] MEDS: HYDROcodone/APAP 5-325MG 1 EACH TAB PO PRN ×2 (11:54→19:56)
--- NOTE | 2020-08-16 13:50 | P.PN ---
Subjective Progress Note Date: 08/16/20 Principal diagnosis: Syncopal episode likely cardiovascular in etiology workup is in progress cardiovascular services have been consulted Covid positive infection, patient diagnosed one day ago with symptoms for a few days Thrombosis of left subclavian vein Severe systolic heart failure with baseline cardiomyopathy with ejection fraction of 15-20% Hypertension hypertensive cardiovascular disease Dyslipidemia Baseline COPD Chronic kidney disease, however her renal functions were normal in April 2020 08/16/2020, patient seen and evaluated examined labs reviewed medications reviewed care plan discussed, a shunt and remains on IV anticoagulation soon to be switched to direct oral anticoagulant, computed tomography scan of the chest failed to reveal any significant pulmonary embolism, This is a 60-year-old male with prior medical history of chronic systolic dy sfunction and failure status post AICD, patient came into the hospital with frequent syncopal episode which were transient short-lived, patient also felt that he is more short of breath than baseline, patient has a baseline ejection fraction 20%, patient is supposed to get a cardiac cath and angiogram which is pending, currently patient is on maximum medical therapy for heart failure, patient has swelling of the left upper extremity duplex ultrasound of the upper extremity came back positive for DVT involving left subclavian vein, patient has testing for covert came back positive as well, chest x-ray is significant for cardiomegaly and no active infiltrate seen patient however is on room air but visibly short of breath, computed tomography scan of the chest is pending, currently patient is on IV heparin, his labs are significant for mild neutropenia slightly elevated BUN and creatinine of 19 and 1.29, patient is afebrile slightly tachypneic blood pressure low normal ranging from 90-100 systolic with diastolics 60-65, Objective - Vital Signs Vital signs: Vital Signs Temp 98.4 F 08/16/20 10:00 Pulse 76 08/16/20 10:00 Resp 18 08/16/20 10:00 BP 99/58 08/16/20 10:00 Pulse Ox 96 08/16/20 10:00 Intake & Output 08/15/20 08/16/20 08/16/20 18:59 06:59 18:59 Intake Total 100.157 109.333 32.659 Balance 100.157 109.333 32.659 Intake: Intake, IV Titration 100.157 109.333 32.659 Amount Heparin Sod,Pork in 0.45% 100.157 109.333 32.659 NaCl 25,000 unit In 0.45 % NaCl 1 250ml.bag @ 18 UNITS/KG/HR 13.064 mls/hr IV .Q19H9M [facility] Rx#: [id number] Other: Voiding Method Urinal # Voids 2 - Exam - Constitutional General appearance: disheveled, mild distress - EENT Eyes: PERRLA Ears: bilateral: normal - Neck Carotids: bilateral: upstroke normal Thyroid: bilateral: normal size - Respiratory Respiratory: bilateral: CTA - Cardiovascular Rhythm: regular Heart sounds: normal: S1, S2 - Gastrointestinal General gastrointestinal: normal bowel sounds, soft - Neurologic Neurologic: CNII-XII intact - Musculoskeletal Musculoskeletal: gait normal, generalized weakness, strength equal bilaterally - Psychiatric Psychiatric: A&O x's 3, appropriate affect, intact judgment & insight - Labs CBC & Chem 7: 08/16/20 08:22 08/16/20 08:22 Labs: Abnormal Lab Results - Last 24 Hours (Table) 08/15/20 08/16/20 08/16/20 Range/Units 16:04 00:33 08:22 WBC 15.2 H (3.8-10.6) k/uL Neutrophils # 13.5 H (1.3-7.7) k/uL APTT 184.0 H* 76.3 H (22.0-30.0) sec Glucose (74-99) mg/dL Total Protein (6.3-8.2) g/dL Albumin (3.5-5.0) g/dL 08/16/20 08/16/20 Range/Units 08:22 08:22 WBC (3.8-10.6) k/uL Neutrophils # (1.3-7.7) k/uL APTT 50.6 H (22.0-30.0) sec Glucose 114 H (74-99) mg/dL Total Protein 6.1 L (6.3-8.2) g/dL Albumin 3.4 L (3.5-5.0) g/dL Assessment and Plan Assessment: Syncopal episode likely cardiovascular in etiology workup is in progress cardiovascular services have been consulted Covid positive infection, patient diagnosed one day ago with symptoms for a few days Thrombosis of left subclavian vein Severe systolic heart failure with baseline cardiomyopathy with ejection fraction of 15-20% Hypertension hypertensive cardiovascular disease Dyslipidemia Baseline COPD Chronic kidney disease, however her renal functions were normal in April 2020 Plan: IV Decadron, can be switched to oral to complete duration of 10 days therapy No need for IV REM doesn't wear recommend continuation of supplements Further evaluation pending as per cardiovascular services IV heparin can be switched to oral direct anticoagulants if okay with cardiovascular services and vascular surgery services Time with Patient: Greater than 30
--- NOTE | 2020-08-16 14:49 | PN ---
PROGRESS NOTE This gentleman was hospitalized with syncope. He has no further arrhythmia. He remains in sinus rhythm. He also had left axillary vein thrombosis. I requested a vascular surgery consult. Dr. Hermosillo felt heparinization and anticoagulation is better than any thrombolytic therapy. He is doing well. He feels better. His swelling is slightly better than yesterday. We will continue IV heparin at least until the next 36 hours and then switch him to Eliquis 5 mg b.i.d. The patient was evaluated. Vitals are stable JVD is 1 cm. No carotid bruit. S1, S2 heard normally. Short systolic murmur is evident. Lungs are clear. Abdomen is soft. Lower extremities reveal normal pulses. Central nervous system is normal. Left upper extremity swelling is less. Advised to continue IV heparin at least for another 24 hours and then we will switch him to Eliquis at that time. We may consider a venogram after the course of anticoagulation is done for at least 3-4 weeks. Discussed my thoughts with the patient. MMALONSOL / IJN: [id number] /
--- NOTE | 2020-08-16 21:34 | P.PN ---
Progress Note - Text Progress Note Date: 08/16/20 Presenting complaint: Syncopal episode Interval history: Patient presented after having an episode of passing out for about 3 minutes. Telemetry unremarkable. Thrombosis in the left upper extremity. On IV heparin. Positive for COVID 19 Today: Sitting up in bed. Awake. No Pain in the left arm. Oral intake fair. No shortness of breath. No chest pain. Review of systems: Was done for constitutional, cardiovascular, GI, pulmonary. relevant finding as above Active Medications Acetaminophen (Acetaminophen Tab 325 Mg Tab) 650 mg PO Q6HR PRN PRN Reason: Fever and/ or Pain Last Admin: 08/16/20 07:45 Dose: 650 mg Documented by: Hydrocodone Bitart/Acetaminophen (Hydrocodone/Apap 5-325mg 1 Each Tab) 1 each PO Q6HR PRN PRN Reason: Moderate Pain Last Admin: 08/16/20 19:56 Dose: 1 each Documented by: Ascorbic Acid (Ascorbic Acid 500 Mg Tab) 1,000 mg PO DAILY [facility] Last Admin: 08/16/20 07:45 Dose: 1,000 mg Documented by: Aspirin (Aspirin 81 Mg) 81 mg PO DAILY [facility] Last Admin: 08/16/20 07:43 Dose: 81 mg Documented by: Atorvastatin Calcium (Atorvastatin 40 Mg Tab) 40 mg PO DAILY [facility] Last Admin: 08/16/20 07:44 Dose: 40 mg Documented by: Cholecalciferol (Cholecalciferol 25 Mcg (1000 Iu) Tablet) 25 mcg PO DAILY [facility] Last Admin: 08/16/20 07:45 Dose: 25 mcg Documented by: Dexamethasone Sodium Phosphate (Dexamethasone Sod Phosphate 10 Mg/Ml 1 Ml Vial) 6 mg IV DAILY [facility] Last Admin: 08/16/20 07:46 Dose: 6 mg Documented by: Furosemide (Furosemide 20 Mg Tab) 20 mg PO BID@0900,1600 [facility] Last Admin: 08/16/20 14:58 Dose: 20 mg Documented by: Heparin Sodium (Porcine) (Heparin Sodium 1,000 Un/Ml (10ml Vl)) 0 unit IV PER PROTOCOL PRN; Protocol PRN Reason: Low PTT Sodium Chloride (Saline 0.9%) 1,000 mls @ 50 mls/hr IV .Q20H [facility] Last Admin: 08/16/20 11:51 Dose: Not Given Documented by: Heparin Sodium/Sodium Chloride (25,000 unit/ Sodium Chloride) 250 mls @ 13.064 mls/hr IV .Q19H9M [facility]; Protocol Last Titration: 08/16/20 09:34 Dose: 12 units/kg/hr, 8.709 mls/hr Documented by: Metoprolol Tartrate (Metoprolol Tartrate 50 Mg Tab) 50 mg PO BID [facility] Last Admin: 08/16/20 07:44 Dose: 50 mg Documented by: Naloxone HCl (Naloxone 0.4 Mg/Ml 1 Ml Vial) 0.2 mg IV Q2M PRN PRN Reason: Opioid Reversal Sacubitril/Valsartan (Sacubitril/Valsartan 24 Mg-26 Mg Tablet) 0.5 each PO BID [facility] Last Admin: 08/16/20 07:46 Dose: 0.5 each Documented by: Spironolactone (Spironolactone 25 Mg Tab) 12.5 mg PO DAILY [facility] Last Admin: 08/16/20 07:44 Dose: 12.5 mg Documented by: Zinc Sulfate (Zinc Sulfate 220 Mg Cap) 220 mg PO DAILY [facility] Last Admin: 08/16/20 07:43 Dose: 220 mg Documented by: On examination: VITAL SIGNS: [98.1, 69, 16, 96.54, 77% room air] GENERAL APPEARANCE: Sitting on bed, comfortable HEENT: Normal external appearance of nose and ear. Oral cavity normal EYES: Pupils equal. Conjunctiva normal. NECK: JVD not raised. Mass not palpable. RESPIRATORY: Respiratory effort normal. Lungs clear to auscultation. CARDIOVASCULAR: First and second sounds normal. No edema. ABDOMEN: Soft. Liver and spleen not palpable. No tenderness. No mass palpable. PSYCHIATRY: Alert and oriented x3. Mood and affect normal. Investigations: WBC 15.2 hemoglobin 14 platelets 181 potassium 4.3 creatinine 0.76 Coronavirus [PCR] detected Assessment and plan: -Acute DVT with a thrombus in the left subclavian vein and the left axillary vein IV heparin. Patient seen by vascular-not for any intervention -Chronic Congestive heart failure from systolic dysfunction EF 20-25%-compensated On by mouth Lasix, Entresto, Aldactone -COVID 19 positive. Patient's pulse ox is 99%. Dexamethasone well be discontinued. Continue vitamin C vitamin D, zinc -Hyperlipidemia On Lipitor -Essential hypertension On Lopressor, Entresto -Permanent pacemaker -Primary osteoarthritis Use pain medications as needed Patient being followed by cardiogenic, vascular. If patient not have any intervention IV heparin. Can be changed over to NOAC
[2020-08-17] MEDS: HEPARIN SOD,PORK IN 0.45% NACL 25,000 UNIT in 0.45% NACL 1 250ML.BAG IV SCH (05:29)
[2020-08-17] MEDS: SODIUM CHLORIDE 0.9% 1,000 ML IV SCH (07:05)
[2020-08-17] MEDS: ZINC SULFATE 220 MG CAP PO SCH (08:29)
[2020-08-17] MEDS: METOPROLOL TARTRATE 50 MG TAB PO SCH ×2 (08:29→21:00)
[2020-08-17] MEDS: SPIRONOLACTONE 25 MG TAB PO SCH (08:29)
[2020-08-17] MEDS: SACUBITRIL/VALSARTAN 24 MG-26 MG TABLET PO SCH ×2 (08:30→20:59)
[2020-08-17] MEDS: ASCORBIC ACID 500 MG TAB PO SCH (08:30)
[2020-08-17] MEDS: ATORVASTATIN 40 MG TAB PO SCH (08:30)
[2020-08-17] MEDS: CHOLECALCIFEROL 25 MCG (1000 IU) TABLET PO SCH (08:30)
[2020-08-17] MEDS: FUROSEMIDE 20 MG TAB PO SCH ×2 (08:30→16:41)
[2020-08-17] MEDS: ASPIRIN 81 MG PO SCH (08:30)
[2020-08-17 09:09] LABS: Basophils # (A) 0.02 X 10*3/uL (0.00-0.10); Basophils % (A) 0.2 %; Eosinophils # (A) 0 X 10*3/uL (0.04-0.35); Eosinophils % (A) 0 %; HGB 13.1 g/dL (13.0-17.0); Lymphocytes # (A) 1.65 X 10*3/uL (0.90-5.00); Lymphocytes % (A) 15.2 %; MCHC 32.8 g/dL (32.0-37.0); MCV 94.6 fL (80.0-97.0); Mean Platelet Volume 11.6 fL (9.5-12.2); Monocytes # (A) 0.63 X 10*3/uL (0.20-1.00); Monocytes % (A) 5.8 %; Neutrophils # (A) 8.53 X 10*3/uL (1.80-7.70); Neutrophils % (A) 78.5 %; Platelet Count 198 X 10*3/uL (140-440); RBC 4.23 X 10*6/uL (4.40-5.60); RDW 12.9 % (11.5-14.5); WBC 10.86 X 10*3/uL (4.50-10.00)
[2020-08-17 09:19] LABS: African American GFR (CKD) 113.3 (60.0-200.0); Anion Gap 7.1 mmol/L (4.00-12.00); Calcium 8.5 mg/dL (8.7-10.3); Carbon Dioxide 26.9 mmol/L (21.6-31.8); Non-African American GFR(CKD) 97.8 (60.0-200.0); Potassium 4.4 mmol/L (3.5-5.5)
--- NOTE | 2020-08-17 09:28 | P.PN ---
Subjective Progress Note Date: 08/17/20 HISTORY OF PRESENT ILLNESS: This is a 60-year-old male who is currently admitted to the hospital secondary to Covid. Patient also diagnosed with a left axillary vein thrombosis. Patient follows in the office with Dr. Thomas. Patient remains on IV heparin. Echocardiogram completed reveals ejection fraction 20-25%, mild tricuspid regurgitation, borderline pulmonary hypertension. Blood pressure 107/59. Heart rate is in the 70s. He is afebrile. He is on room air with oxygen saturations greater than 92% PHYSICAL EXAM: Thorough physical exam not completed secondary to limited evaluation/examination due to Covid19 ASSESSMENT: Acute COVID-19 Left axillary vein thrombosis Possible syncope History of nonischemic cardiomyopathy, status post ICD in April 2020 History of alcoholism History of smoking PLAN: Check coverage for Eliquis 5 mg twice a day. If covered, will discontinue IV heparin and switch patient to Eliquis. No further inpatient recommendations from a cardiac standpoint. We will sign off. Patient to follow up post discharge with Dr. Thomas Nurse practitioner note has been reviewed by physician. Signing provider agrees with the documented findings, assessment, and plan of care. Objective - Vital Signs Vital signs: Vital Signs Temp 98.5 F 08/17/20 05:34 Pulse 74 08/17/20 05:34 Resp 16 08/17/20 05:34 BP 107/59 08/17/20 05:34 Pulse Ox 95 08/17/20 05:34 Intake & Output 08/16/20 08/17/20 08/17/20 18:59 06:59 18:59 Intake Total 32.659 173.454 Balance 32.659 173.454 Intake: Intake, IV Titration 32.659 173.454 Amount Heparin Sod,Pork in 0.45% 32.659 173.454 NaCl 25,000 unit In 0.45 % NaCl 1 250ml.bag @ 18 UNITS/KG/HR 13.064 mls/hr IV .Q19H9M [facility] Rx#: [id number] Other: Voiding Method Urinal - Labs CBC & Chem 7: 08/17/20 06:28 08/17/20 06:28 Labs: Abnormal Lab Results - Last 24 Hours (Table) 08/16/20 08/17/20 08/17/20 Range/Units 08:22 06:28 06:28 WBC 10.86 H (4.50-10.00) X 10*3/uL RBC 4.23 L (4.40-5.60) X 10*6/uL Neutrophils # 8.53 H (1.80-7.70) X 10*3/uL Eosinophils # 0 L (0.04-0.35) X 10*3/uL APTT 52.0 H (22.0-30.0) sec BUN/Creatinine Ratio (12.00-20.00) Ratio Glucose 114 H (74-99) mg/dL Calcium (8.7-10.3) mg/dL Total Protein 6.1 L (6.3-8.2) g/dL Albumin 3.4 L (3.5-5.0) g/dL 08/17/20 Range/Units 06:28 WBC (4.50-10.00) X 10*3/uL RBC (4.40-5.60) X 10*6/uL Neutrophils # (1.80-7.70) X 10*3/uL Eosinophils # (0.04-0.35) X 10*3/uL APTT (22.0-30.0) sec BUN/Creatinine Ratio 25.00 H (12.00-20.00) Ratio Glucose (74-99) mg/dL Calcium 8.5 L (8.7-10.3) mg/dL Total Protein (6.3-8.2) g/dL Albumin (3.5-5.0) g/dL
[2020-08-17] MEDS: APIXABAN 5 MG TAB PO SCH ×2 (11:37→21:00)
--- NOTE | 2020-08-17 11:40 | P.PN ---
Subjective Progress Note Date: 08/17/20 Principal diagnosis: Left upper extremity DVT Patient is seen and examined sitting up at the bedside. He states his swelling to the left upper extremity has significantly reduced. He denies any pain to the left upper extremity. He has full range of motion. He remains on IV h eparin drip, however Eliquis has been ordered and will transition over today. Objective - Vital Signs Vital signs: Vital Signs Temp 98.4 F 08/17/20 10:00 Pulse 69 08/17/20 10:00 Resp 18 08/17/20 10:00 BP 112/70 08/17/20 10:00 Pulse Ox 97 08/17/20 10:00 Intake & Output 08/16/20 08/17/20 08/17/20 18:59 06:59 18:59 Intake Total 32.659 173.454 200 Balance 32.659 173.454 200 Intake: Intake, IV Titration 32.659 173.454 Amount Heparin Sod,Pork in 0.45% 32.659 173.454 NaCl 25,000 unit In 0.45 % NaCl 1 250ml.bag @ 18 UNITS/KG/HR 13.064 mls/hr IV .Q19H9M [facility]PLAC[facility] Rx#: [id number] Oral 200 Other: Voiding Method Urinal - Exam General appearance: The patient is alert, oriented, in no acute distress. HET: Head is normocephalic and atraumatic. Neck: Supple without lymphadenopathy. Trachea midline. Extremities: Normal skin color and turgor. Left upper extremity with mild swelling, no redness. Radial pulses are 2/4 bilaterally. Full range of motion of left upper extremity. Neurological: No focal deficits. Strength and sensation are grossly intact. - Labs CBC & Chem 7: 08/17/20 06:28 08/17/20 06:28 Labs: Abnormal Lab Results - Last 24 Hours (Table) 08/17/20 08/17/20 08/17/20 Range/Units 06:28 06:28 06:28 WBC 10.86 H (4.50-10.00) X 10*3/uL RBC 4.23 L (4.40-5.60) X 10*6/uL Neutrophils # 8.53 H (1.80-7.70) X 10*3/uL Eosinophils # 0 L (0.04-0.35) X 10*3/uL APTT 52.0 H (22.0-30.0) sec BUN/Creatinine Ratio 25.00 H (12.00-20.00) Ratio Calcium 8.5 L (8.7-10.3) mg/dL Assessment and Plan Assessment: 1. Left upper extremity axillary and subclavian DVT 2. Cardiomyopathy status post ICD placement 3. Covid positive Plan: Patient may be switched over to oral anticoagulation, Eliquis ordered per cardiology. Keep left upper extremity elevated. No vascular surgical intervention needed at this time, swelling has decreased substantially and has full range of motion. Thank you for this consultation, we will sign off at this time. The impression and plan of care has been dictated as directed. I performed a history and examination of this patient, discussed the same with the dictator. I agree with the dictator's note ,documented as a scribe. Any additional findings or plans will be noted.
--- NOTE | 2020-08-17 12:00 | P.PN ---
Subjective Progress Note Date: 08/17/20 Principal diagnosis: Syncopal episode likely cardiovascular in etiology workup is in progress cardiovascular services have been consulted Covid positive infection, patient diagnosed one day ago with symptoms for a few days Thrombosis of left subclavian vein Severe systolic heart failure with baseline cardiomyopathy with ejection fraction of 15-20% Hypertension hypertensive cardiovascular disease Dyslipidemia Baseline COPD Chronic kidney disease, however her renal functions were normal in April 2020 August 17, 2020 Pt. Seen eval examined during the rounds has been doing well denies any chest pain, off of oxygen on room air, patient is off of IV antifungal patient with heparin now on direct anticoagulants slight cough and shortness of breath is present which is stable, patient remains on Decadron can be discharged from pulmonary standpoint in 24 to 48 hours to complete 10 day therapy 6 mg daily 08/16/2020, patient seen and evaluated examined labs reviewed medications reviewed care plan discussed, a shunt and remains on IV anticoagulation soon to be switched to direct oral anticoagulant, computed tomography scan of the chest failed to reveal any significant pulmonary embolism, This is a 60-year-old male with prior medical history of chronic systolic dys function and failure status post AICD, patient came into the hospital with frequent syncopal episode which were transient short-lived, patient also felt that he is more short of breath than baseline, patient has a baseline ejection fraction 20%, patient is supposed to get a cardiac cath and angiogram which is pending, currently patient is on maximum medical therapy for heart failure, patient has swelling of the left upper extremity duplex ultrasound of the upper extremity came back positive for DVT involving left subclavian vein, patient has testing for covert came back positive as well, chest x-ray is significant for cardiomegaly and no active infiltrate seen patient however is on room air but visibly short of breath, computed tomography scan of the chest is pending, currently patient is on IV heparin, his labs are significant for mild neutropenia slightly elevated BUN and creatinine of 19 and 1.29, patient is afebrile slightly tachypneic blood pressure low normal ranging from 90-100 systolic with diastolics 60-65, Objective - Vital Signs Vital signs: Vital Signs Temp 98.4 F 08/17/20 10:00 Pulse 69 08/17/20 10:00 Resp 18 08/17/20 10:00 BP 112/70 08/17/20 10:00 Pulse Ox 97 08/17/20 10:00 Intake & Output 08/16/20 08/17/20 08/17/20 18:59 06:59 18:59 Intake Total 32.659 173.454 200 Balance 32.659 173.454 200 Intake: Intake, IV Titration 32.659 173.454 Amount Heparin Sod,Pork in 0.45% 32.659 173.454 NaCl 25,000 unit In 0.45 % NaCl 1 250ml.bag @ 18 UNITS/KG/HR 13.064 mls/hr IV .[id number] [facility] Rx#: [id number] Oral 200 Other: Voiding Method Urinal - Exam - Constitutional General appearance: disheveled, mild distress - EENT Eyes: PERRLA Ears: bilateral: normal - Neck Carotids: bilateral: upstroke normal Thyroid: bilateral: normal size - Respiratory Respiratory: bilateral: CTA - Cardiovascular Rhythm: regular Heart sounds: normal: S1, S2 - Gastrointestinal General gastrointestinal: normal bowel sounds, soft - Neurologic Neurologic: CNII-XII intact - Musculoskeletal Musculoskeletal: gait normal, generalized weakness, strength equal bilaterally - Psychiatric Psychiatric: A&O x's 3, appropriate affect, intact judgment & insight - Labs CBC & Chem 7: 08/17/20 06:28 08/17/20 06:28 Labs: Abnormal Lab Results - Last 24 Hours (Table) 08/17/20 08/17/20 08/17/20 Range/Units 06:28 06:28 06:28 WBC 10.86 H (4.50-10.00) X 10*3/uL RBC 4.23 L (4.40-5.60) X 10*6/uL Neutrophils # 8.53 H (1.80-7.70) X 10*3/uL Eosinophils # 0 L (0.04-0.35) X 10*3/uL APTT 52.0 H (22.0-30.0) sec BUN/Creatinine Ratio 25.00 H (12.00-20.00) Ratio Calcium 8.5 L (8.7-10.3) mg/dL Assessment and Plan Assessment: Syncopal episode likely cardiovascular in etiology workup is in progress cardiovascular services have been following Covid positive infection, patient diagnosed one day ago with symptoms for a few days Thrombosis of left subclavian vein Severe systolic heart failure with baseline cardiomyopathy with ejection fraction of 15-20% Hypertension hypertensive cardiovascular disease Dyslipidemia Baseline COPD Chronic kidney disease, however her renal functions were normal in April 2020 Plan: IV Decadron, can be switched to oral to complete duration of 10 days therapy No need for IV REM doesn't wear recommend continuation of supplements Further evaluation pending as per cardiovascular services on oral direct anticoagulants if okay with cardiovascular services and vascular surgery services Time with Patient: Greater than 30
--- NOTE | 2020-08-17 21:02 | PN ---
PROGRESS NOTE This is a 60-year-old white male who came in with syncope, COVID, left upper extremity DVT, for which he was on started on blood thinner. He has full range of motion. Heparin is being switched to Eliquis today. He is being treated for COVID pneumonia. CARDIOVASCULAR: S1, S2. Lungs are clear. GI soft. Decadron. Temperature 98.4, pulse 60s, respiratory rate 12 to 18, blood pressure 112/70, O2 97. HEENT: Normocephalic, atraumatic. Cardiovascular: S1, S2. GI soft. NEUROLOGIC: Cranial nerves intact. PSYCH: Fair mood and affect. ASSESSMENT: 1. Syncopal secondary to cardiovascular in etiology. Cardiology is working in this. 2. COVID positive. 3. Thrombosis, left subclavian vein. 4. Severe systolic heart failure. 5. Baseline cardiomyopathy, ejection fraction 15% to 20%. 6. Hypertensive cardiovascular disease. 7. Chronic obstructive pulmonary disease. 8. Dyslipidemia. Continue with IV Decadron, blood thinner for blood clot in the arm. Continue on vitamins. Prognosis guarded. Await cardiology recommendations prior to discharge. He is on blood thinners for his left DVT and the subclavian occlusion. MMODL / IJN: [id number] /
[2020-08-17] MEDS: ACETAMINOPHEN TAB 325 MG TAB PO PRN (22:53)
[2020-08-18] MEDS: SODIUM CHLORIDE 0.9% 1,000 ML IV SCH (01:07)
[2020-08-18 06:06] VITALS: TEMP 97.9
--- NOTE | 2020-08-18 08:28 | P.PN ---
Subjective Progress Note Date: 08/18/20 Principal diagnosis: Syncopal episode likely cardiovascular in etiology workup is in progress cardiovascular services have been consulted Covid positive infection, patient diagnosed one day ago with symptoms for a few days Thrombosis of left subclavian vein Severe systolic heart failure with baseline cardiomyopathy with ejection fraction of 15-20% Hypertension hypertensive cardiovascular disease Dyslipidemia Baseline COPD Chronic kidney disease, however her renal functions were normal in April 2020 08/18/2020, patient seen eval examined during the rounds labs reviewed medications reviewed as pre-status remains stable, patient can be switched to by mouth Decadron to complete 10 day therapy, shortness of breath significantly improved, denies any cough or sputum or chest pain, remains on direct oral anticoagulant August 17, 2020 Pt. Seen eval examined during the rounds has been doing well denies any chest pain, off of oxygen on room air, patient is off of IV antifungal patient with heparin now on direct anticoagulants slight cough and shortness of breath is present which is stable, patient remains on Decadron can be discharged from pulmonary standpoint in 24 to 48 hours to complete 10 day therapy 6 mg daily 08/16/2020, patient seen and evaluated examined labs reviewed medications reviewed care plan discussed, a shunt and remains on IV anticoagulation soon to be switched to direct oral anticoagulant, computed tomography scan of the chest failed to reveal any significant pulmonary embolism, This is a 60-year-old male with prior medical history of chronic systolic dysfunction and failure status post AICD, patient came into the hospital with frequent syncopal episode which were transient short-lived, patient also felt that he is more short of breath than baseline, patient has a baseline ejection fraction 20%, patient is supposed to get a cardiac cath and angiogram which is pending, currently patient is on maximum medical therapy for heart failure, patient has swelling of the left upper extremity duplex ultrasound of the upper extremity came back positive for DVT involving left subclavian vein, patient has testing for covert came back positive as well, chest x-ray is significant for cardiomegaly and no active infiltrate seen patient however is on room air but visibly short of breath, computed tomography scan of the chest is pending, cu rrently patient is on IV heparin, his labs are significant for mild neutropenia slightly elevated BUN and creatinine of 19 and 1.29, patient is afebrile slightly tachypneic blood pressure low normal ranging from 90-100 systolic with diastolics 60-65, Objective - Vital Signs Vital signs: Vital Signs Temp 97.9 F 08/18/20 05:07 Pulse 72 08/18/20 05:07 Resp 17 08/18/20 05:07 BP 94/63 08/18/20 05:07 Pulse Ox 92 L 08/18/20 05:07 Intake & Output 08/17/20 08/18/20 08/18/20 18:59 06:59 18:59 Intake Total 800 Balance 800 Intake: Oral 800 Other: Voiding Method Urinal - Exam - Constitutional General appearance: disheveled, mild distress - EENT Eyes: PERRLA Ears: bilateral: normal - Neck Carotids: bilateral: upstroke normal Thyroid: bilateral: normal size - Respiratory Respiratory: bilateral: CTA - Cardiovascular Rhythm: regular Heart sounds: normal: S1, S2 - Gastrointestinal General gastrointestinal: normal bowel sounds, soft - Neurologic Neurologic: CNII-XII intact - Musculoskeletal Musculoskeletal: gait normal, generalized weakness, strength equal bilaterally - Psychiatric Psychiatric: A&O x's 3, appropriate affect, intact judgment & insight - Labs CBC & Chem 7: 08/17/20 06:28 08/17/20 06:28 Labs: Abnormal Lab Results - Last 24 Hours (Table) 08/17/20 08/17/20 Range/Units 06:28 06:28 WBC 10.86 H (4.50-10.00) X 10*3/uL RBC 4.23 L (4.40-5.60) X 10*6/uL Neutrophils # 8.53 H (1.80-7.70) X 10*3/uL Eosinophils # 0 L (0.04-0.35) X 10*3/uL BUN/Creatinine Ratio 25.00 H (12.00-20.00) Ratio Calcium 8.5 L (8.7-10.3) mg/dL Assessment and Plan Assessment: Syncopal episode likely cardiovascular in etiology workup is in progress cardiovascular services have been following Covid positive infection, patient diagnosed one day ago with symptoms for a few days Thrombosis of left subclavian vein Severe systolic heart failure with baseline cardiomyopathy with ejection fraction of 15-20% Hypertension hypertensive cardiovascular disease Dyslipidemia Baseline COPD Chronic kidney disease, however her renal functions were normal in April 2020 Plan: IV Decadron, can be switched to oral to complete duration of 10 days therapy No need for IV REMdesivir recommend continuation of supplements Further evaluation pending as per cardiovascular services on oral direct anticoagulants if okay with cardiovascular services and vascular surgery services Time with Patient: Greater than 30
[2020-08-18] MEDS: FUROSEMIDE 20 MG TAB PO SCH (09:09)
[2020-08-18] MEDS: ASCORBIC ACID 500 MG TAB PO SCH (09:09)
[2020-08-18] MEDS: APIXABAN 5 MG TAB PO SCH (09:09)
[2020-08-18] MEDS: SPIRONOLACTONE 25 MG TAB PO SCH (09:09)
[2020-08-18] MEDS: ATORVASTATIN 40 MG TAB PO SCH (09:10)
[2020-08-18] MEDS: ZINC SULFATE 220 MG CAP PO SCH (09:10)
[2020-08-18] MEDS: CHOLECALCIFEROL 25 MCG (1000 IU) TABLET PO SCH (09:10)
[2020-08-18] MEDS: ASPIRIN 81 MG PO SCH (09:10)
[2020-08-18] MEDS: METOPROLOL TARTRATE 50 MG TAB PO SCH (09:10)
[2020-08-18 09:53] VITALS: BP 98/64; PULSE 75; RESP 16
[2020-08-18] MEDS: SACUBITRIL/VALSARTAN 24 MG-26 MG TABLET PO SCH (10:27)
--- NOTE | 2020-08-18 20:28 | DS ---
DISCHARGE SUMMARY DISCHARGE MEDICINES: 1. Eliquis 5 mg b.i.d. 2. Lasix 20 b.i.d. 3. Zinc 220 daily for 10 days. 4. Ascorbic acid 1000 daily. 5. Spironolactone 12.5 daily. 6. Aspirin 81 mg daily. 7. Lipitor 40 daily. 8. Vitamin D 25 mEq daily. 9. Vitamin B complex daily. 10.Entresto 24/ b.i.d. 11.Lopressor 50. CONDITION: Stable. PROGNOSIS: Guarded. Ambulate as tolerated. Nonischemic cardiomyopathy, syncope, acute non-STEMI, acute DVT, left subclavian artery with obstruction. White male admitted with a left subclavian occlusion, started on Eliquis by Vascular Surgery. Ischemic cardiomyopathy will have to be followed up outpatient with Cardiology. We also treated him for COVID pneumonia, for which vitamin C, zinc, dexamethasone were given. He is stabilized on room air. Follow up in the outpatient setting in the next week or two with Dr. Felix Burgos. Condition stable. Prognosis guarded. Ambulate as tolerated. MMODL / IJN: [id number] /
--- NOTE | 2020-09-08 08:49 | CDI ---
Documentation Clarification Form Date: 09/08/20 From: Jessica Mcgill CCA/Pam Gerardo Admit Date: 08/15/20 Discharge Date:08/18/20 Patient Name: Phil Yap Visit Number: [id number] ATTENTION: The Clinical Documentation Specialists (CDI) and [facility] Coding Staff appreciate your assistance in clarifying documentation. Please respond to the clarification below the line at the bottom and electronically sign. The CDI & [facility] Coding staff will review the response and follow-up if needed. Please note: Queries are made part of the Legal Health Record. If you have any questions, please contact the author of this message via ITS. Dear Dr. Burgos NSTEMI is documented in the discharge summary, but is not noted by cardiology or in other documentation during the stay.. Clarification is requested. History/Risk Factors: Non-ischemic cardiomyopathy, Chronic Systolic CHF, HTN, CKD, COPD, PHTN, COVID PNA Clinical Indicators: Syncope Labs: Troponin 0.034 Treatment: Heparin IV for DVT Please clarify if the NSTEMI is: [ ] NSTEMI confirmed [ ] NSTEMI type II [ ] NSTEMI ruled out [ ] Other condition, please specify [ ] Unable to determine MTDD
--- NOTE | 2020-09-14 18:12 | PN ---
PROGRESS NOTE Please add: Non-STEMI was confirmed. MMODL / IJN: [id number] /
== END 2020-08-18 14:51 | disposition home or self-care (01) | DRG 177 ==
LOC: EC 14:38 → 6NMEDSUR 17:59 → 4SSUR 08-15 00:30 → OBSVTOIN 08-15 23:18 → 4SSUR 08-17 16:50
PROVIDERS: ADMIT Family Medicine; ATTEND Family Medicine
DX: U07.1 COVID-19 (principal); J12.82 Pneumonia due to coronavirus disease 2019; I21.4 Non-ST elevation (NSTEMI) myocardial infarction; I82.A12 Acute embolism and thrombosis of left axillary vein; I82.B12 Acute embolism and thrombosis of left subclavian vein; I13.0 Hypertensive heart and chronic kidney disease with heart failure and stage 1 through stage 4 chronic kidney disease, or unspecified chronic kidney disease; I42.8 Other cardiomyopathies; I50.22 Chronic systolic (congestive) heart failure; J44.0 Chronic obstructive pulmonary disease with (acute) lower respiratory infection; I27.22 Pulmonary hypertension due to left heart disease; D70.9 Neutropenia, unspecified; E78.5 Hyperlipidemia, unspecified; F10.21 Alcohol dependence, in remission; N18.9 Chronic kidney disease, unspecified; M19.91 Primary osteoarthritis, unspecified site; I07.1 Rheumatic tricuspid insufficiency; I25.2 Old myocardial infarction; Z79.899 Other long term (current) drug therapy; Z79.82 Long term (current) use of aspirin; Z82.5 Family history of asthma and other chronic lower respiratory diseases; Z87.891 Personal history of nicotine dependence; Z91.14 Patient's other noncompliance with medication regimen; Z95.810 Presence of automatic (implantable) cardiac defibrillator; Z90.49 Acquired absence of other specified parts of digestive tract
CPT/HCPCS: 36415; 71046; 71275; 80048; 80053; 81003; 83615; 83735; 84145; 84484; 85025; 85379; 85610; 85730; 86140; 87635; 93005; 93306; 94760; 96374; 99285

== ENCOUNTER 2020-09-15 07:07 | Inpatient (IN) | payer OTHER ==
[2020-09-15] MEDS ORDERED: SODIUM CHLORIDE 0.9% 500 ML 500 ML IV STA (07:27)
--- NOTE | 2020-09-15 07:41 | ED ---
General Adult HPI - General Chief complaint: Extremity Problem,Nontraumatic Stated complaint: Arm Pain Time Seen by Provider: 09/15/20 07:20 Source: patient Mode of arrival: ambulatory Limitations: physical limitation - History of Present Illness Initial comments: 60-year-old male with a past medical history of COPD hyperlipidemia hypertension and DE, heart failure presents to the emergency room for a chief complaint of left arm pain. Patient reports that he was recently diagnosed with a DVT in the left axillary vein/subclavian vein and started on Eliquis. ICD placement this past april. He has an appointment to see Dr. Bosch on September 22 but states that 4 days ago symptoms started worsening and his arm pain had increased. Patient does admit to slight shortness of breath. Denies chest pain.Patient has no other complaints at this time including chest pain, abdominal pain, nausea or vomiting, headache, or visual changes. - Related Data Home Medications Medication Instructions Recorded Confirmed Spironolactone [Aldactone] 12.5 mg PO DAILY 02/25/20 09/15/20 Cholecalciferol [Vitamin D3 (25 25 mcg PO DAILY 08/12/20 09/15/20 Mcg = 1000 Iu)] Vitamin B Complex 1 cap PO DAILY 08/12/20 09/15/20 Metoprolol Tartrate [Lopressor] 50 mg PO BID 08/14/20 09/15/20 Sacubitril/Valsartan [Entresto 24 1 tab PO BID 08/14/20 09/15/20 mg-26 mg Tablet] Aspirin EC [Ecotrin Low Dose] 81 mg PO DAILY 09/15/20 09/15/20 Previous Rx's Medication Instructions Recorded Atorvastatin [Lipitor] 40 mg PO DAILY 90 Days #90 tab 02/29/20 Apixaban [Eliquis] 5 mg PO BID #60 tab 08/17/20 Ascorbic Acid [Vitamin C] 1,000 mg PO DAILY tab 08/18/20 Furosemide [Lasix] 20 mg PO BID@0900,1600 30 Days #60 08/18/20 tab Allergies Allergy/AdvReac Type Severity Reaction Status Date / Time No Known Allergies Allergy Verified 09/15/20 09:28 Review of Systems ROS Statement: Those systems with pertinent positive or pertinent negative responses have been documented in the HPI. ROS Other: All systems not noted in ROS Statement are negative. Past Medical History Past Medical History: COPD, Hyperlipidemia, Hypertension, Myocardial Infarction (DE), Osteoarthritis (OA) Additional Past Medical History / Comment(s): arthritis, "shakes", syncope, blood clot to lt arm. EF-20/25% Last Myocardial Infarction Date:: 02/25/20 History of Any Multi-Drug Resistant Organisms: None Reported Past Surgical History: Appendectomy, Heart Catheterization, Pacemaker Past Anesthesia/Blood Transfusion Reactions: No Reported Reaction Type of Cardiac Device: Permanent Pacemaker Device Placement Date:: 05/01/20 Past Psychological History: No Psychological Hx Reported Smoking Status: Former smoker Past Alcohol Use History: None Reported Past Drug Use History: None Reported - Past Family History Mother Family Medical History: Cancer Additional Family Medical History / Comment(s): Cancer in jaw Father Family Medical History: COPD General Exam Limitations: physical limitation General appearance: alert, in no apparent distress Head exam: Present: atraumatic, normocephalic, normal inspection Eye exam: Present: normal appearance, PERRL, EOMI. Absent: scleral icterus, conjunctival injection, periorbital swelling ENT exam: Present: normal exam, mucous membranes moist Neck exam: Present: normal inspection. Absent: tenderness, meningismus, lymphadenopathy Respiratory exam: Present: normal lung sounds bilaterally. Absent: respiratory distress, wheezes, rales, rhonchi, stridor Cardiovascular Exam: Present: regular rate, normal rhythm, normal heart sounds. Absent: systolic murmur, diastolic murmur, rubs, gallop, clicks GI/Abdominal exam: Present: soft, normal bowel sounds. Absent: distended, tenderness, guarding, rebound, rigid Extremities exam: Present: full ROM (Full range of motion left upper extremity), normal capillary refill (Capillary refill less than 2 seconds, radial pulse 2+ left upper extremity), other (Sensation intact left upper treatment. Patient does have some mild edema and erythema of the left arm.) Course Vital Signs 09/15/20 07:13 Temperature 97.8 F Pulse Rate 111 H Respiratory 18 Rate Blood Pressure 148/77 O2 Sat by Pulse 96 Oximetry EKG Findings - EKG Comments: EKG Findings:: 0809: Sinus rhythm, ventricular rate 94, NC to 146, QTC prolonged at 515 Medical Decision Making - Medical Decision Making [place] Stable. Patient sightly tachycardic however no respiratory distress. CBC CMP unremarkable. Magnesium normal. Chest CTA shows no PE. However there is evidence of wall thickening of the distal esophagus, recommended direct visualization. Ultrasound was repeated a from August 15 of the left arm which did show no flow in the entire subclavian vein as well as no flow in the axillary vein of the left arm. Previous ultrasound did have at least compressibility of the axillary vein. Case was discussed with Dr. Bosch, or commands admitting patient on IV heparin. Of note patient also had an EKG revealing a prolonged QTC of 515. We will consult cardiology. Patient does have AICD placed reflectively for cardiomyopathy.case discussed with Dr. Burgos who does accept admission. - Lab Data Result diagrams: 09/15/20 07:51 09/15/20 07:51 Lab Results 09/15/20 09/15/20 09/15/20 Range/Units 07:51 07:51 07:51 WBC 6.3 (3.8-10.6) k/uL RBC 4.23 L (4.30-5.90) m/uL Hgb 13.5 (13.0-17.5) gm/dL Hct 39.3 (39.0-53.0) % MCV 92.9 (80.0-100.0) fL MCH 31.9 (25.0-35.0) pg MCHC 34.3 (31.0-37.0) g/dL RDW 13.2 (11.5-15.5) % Plt Count 239 (150-450) k/uL MPV 7.4 Neutrophils % 53 % Lymphocytes % 32 % Monocytes % 6 % Eosinophils % 7 % Basophils % 1 % Neutrophils # 3.4 (1.3-7.7) k/uL Lymphocytes # 2.0 (1.0-4.8) k/uL Monocytes # 0.4 (0-1.0) k/uL Eosinophils # 0.4 (0-0.7) k/uL Basophils # 0.1 (0-0.2) k/uL PT 10.4 (9.0-12.0) sec INR 1.0 (<1.2) APTT 25.3 (22.0-30.0) sec Sodium 140 (137-145) mmol/L Potassium 3.9 (3.5-5.1) mmol/L Chloride 109 H (98-107) mmol/L Carbon Dioxide 24 (22-30) mmol/L Anion Gap 7 mmol/L BUN 10 (9-20) mg/dL Creatinine 0.97 (0.66-1.25) mg/dL Est GFR (CKD-EPI)AfAm >90 (>60 ml/min/1.73 sqM) Est GFR (CKD-EPI)NonAf 86 (>60 ml/min/1.73 sqM) Glucose 99 (74-99) mg/dL Calcium 9.2 (8.4-10.2) mg/dL Magnesium (1.6-2.3) mg/dL Total Bilirubin 0.3 (0.2-1.3) mg/dL AST 26 (17-59) U/L ALT 20 (4-49) U/L Alkaline Phosphatase 92 (38-126) U/L Troponin I (0.000-0.034) ng/mL NT-Pro-B Natriuret Pep pg/mL Total Protein 6.9 (6.3-8.2) g/dL Albumin 4.2 (3.5-5.0) g/dL 09/15/20 09/15/20 09/15/20 Range/Units 07:51 07:51 07:51 WBC (3.8-10.6) k/uL RBC (4.30-5.90) m/uL Hgb (13.0-17.5) gm/dL Hct (39.0-53.0) % MCV (80.0-100.0) fL MCH (25.0-35.0) pg MCHC (31.0-37.0) g/dL RDW (11.5-15.5) % Plt Count (150-450) k/uL MPV Neutrophils % % Lymphocytes % % Monocytes % % Eosinophils % % Basophils % % Neutrophils # (1.3-7.7) k/uL Lymphocytes # (1.0-4.8) k/uL Monocytes # (0-1.0) k/uL Eosinophils # (0-0.7) k/uL Basophils # (0-0.2) k/uL PT (9.0-12.0) sec INR (<1.2) APTT (22.0-30.0) sec Sodium (137-145) mmol/L Potassium (3.5-5.1) mmol/L Chloride (98-107) mmol/L Carbon Dioxide (22-30) mmol/L Anion Gap mmol/L BUN (9-20) mg/dL Creatinine (0.66-1.25) mg/dL Est GFR (CKD-EPI)AfAm (>60 ml/min/1.73 sqM) Est GFR (CKD-EPI)NonAf (>60 ml/min/1.73 sqM) Glucose (74-99) mg/dL Calcium (8.4-10.2) mg/dL Magnesium 1.9 (1.6-2.3) mg/dL Total Bilirubin (0.2-1.3) mg/dL AST (17-59) U/L ALT (4-49) U/L Alkaline Phosphatase (38-126) U/L Troponin I <0.012 (0.000-0.034) ng/mL NT-Pro-B Natriuret Pep 3670 pg/mL Total Protein (6.3-8.2) g/dL Albumin (3.5-5.0) g/dL Disposition Clinical Impression: Deep vein thrombosis (DVT) of upper extremity, Prolonged QT interval Disposition: ADMITTED IP TO THIS HOSP Referrals: Felix Burgos MD [Primary Care Provider] - 1-2 days Time of Disposition: 09:37
[2020-09-15 08:14] LABS: Basophils # (A) 0.1 k/uL (0-0.2); Basophils % (A) 1 %; Eosinophils # (A) 0.4 k/uL (0-0.7); Eosinophils % (A) 7 %; HCT 39.3 % (39.0-53.0); HGB 13.5 gm/dL (13.0-17.5); Lymphocytes % (A) 32 %; MCH 31.9 pg (25.0-35.0); MCHC 34.3 g/dL (31.0-37.0); MCV 92.9 fL (80.0-100.0); Mean Platelet Volume 7.4; Monocytes # (A) 0.4 k/uL (0-1.0); Monocytes % (A) 6 %; Neutrophils # (A) 3.4 k/uL (1.3-7.7); Neutrophils % (A) 53 %; Platelet Count 239 k/uL (150-450); RBC 4.23 m/uL (4.30-5.90); RDW 13.2 % (11.5-15.5); WBC 6.3 k/uL (3.8-10.6)
[2020-09-15 08:20] LABS: Partial Thromboplastin Time 25.3 sec (22.0-30.0); Prothrombin Time 10.4 sec (9.0-12.0)
[2020-09-15 08:25] LABS: Potassium 3.9 mmol/L (3.5-5.1)
[2020-09-15 08:26] LABS: ALT 20 U/L (4-49); AST 26 U/L (17-59); African American GFR (CKD) >90 (>60 ml/min/1.73 sqM); Albumin 4.2 g/dL (3.5-5.0); Alkaline Phosphatase 92 U/L (38-126); Anion Gap 7 mmol/L; Blood Urea Nitrogen 10 mg/dL (9-20); Calcium 9.2 mg/dL (8.4-10.2); Carbon Dioxide 24 mmol/L (22-30); Chloride 109 mmol/L (98-107); Glucose 99 mg/dL (74-99); Non-African American GFR(CKD) 86 (>60 ml/min/1.73 sqM); Sodium 140 mmol/L (137-145); Total Bilirubin 0.3 mg/dL (0.2-1.3); Total Protein 6.9 g/dL (6.3-8.2)
--- NOTE | 2020-09-15 08:27 | CT ---
EXAMINATION TYPE: CT chest angio for PE DATE OF EXAM: 09/15/2020 COMPARISON: 08/15/2020 HISTORY: 60-year-old male DVT Lt arm, SOB TECHNIQUE: Contiguous axial scanning of the chest performed with IV Contrast, patient injected with 1 00 mL of Isovue 300. Coronal/sagittal MIP reconstructions performed. CT DLP: 327.1 mGycm Automated exposure control for dose reduction was used. FINDINGS: Left anterior chest wall pacemaker generator with a right ventricular lead. Heart normal size without pericardial effusion. No flattening of the interventricular septum reflux o f contrast into the hepatic veins. LAD coronary artery calcifications are present. Aorta normal caliber with conventional arch vessel branching anatomy. Prominent 1.1 cm right hilar lymph node is unchanged. Tiny calcified right hilar and lower right para tracheal lymph nodes compatible with prior granulomatous disease. Otherwise, no thoracic lymphadenopa thy by CT size criteria. Satisfactory opacification of the pulmonary arterial system without evidence for pulmonary embolus. Moderate diffuse bronchial wall thickening. No consolidation or pleural effusion. Redemonstrated moderate circumferential wall thickening of the distal esophagus. Visualized upper abd omen shows no gross abnormality. Anterior endplate spondylosis lower thoracic spine and thoracolumbar junction. IMPRESSION: 1. NO EVIDENCE FOR PULMONARY EMBOLUS. 2. MODERATE DIFFUSE BRONCHIAL WALL THICKENING SUGGESTS BRONCHITIS OR UNCONTROLLED ASTHMA. 3. REDEMONSTRATION MODERATE CIRCUMFERENTIAL WALL THICKENING OF THE DISTAL ESOPHAGUS. CORRELATE FOR ES OPHAGITIS. ESOPHAGEAL NEOPLASM CONSIDERED LESS LIKELY GIVEN RELATIVE STABILITY OVER THE LAST MONTH. D IRECT VISUALIZATION RECOMMENDED.
--- NOTE | 2020-09-15 08:58 | US ---
EXAMINATION TYPE: US venous doppler duplex UE LT DATE OF EXAM: 09/15/2020 COMPARISON: US 08/15/2020 CLINICAL HISTORY: worsening pain, edema. h/o dvt. SIDE PERFORMED: Left Left Arm: Positive for DVT. There is thrombus seen with no flow in the entire subclavian vein. There is also thrombus seen with the axillary vein with no flow seen. IMPRESSION: 1. Obstructing thrombus within the subclavian and left axillary vein. 2. Report was called to emergency room by Dr. Whyte by telephone at the time of interpretation.
[2020-09-15] MEDS ORDERED: HEPARIN SODIUM 1,000 UN/ML (10ML VL) IV ONE (09:21)
[2020-09-15] MEDS ORDERED: HEPARIN SODIUM 1,000 UN/ML (10ML VL) IV PRN (09:21)
[2020-09-15] MEDS ORDERED: NALOXONE 0.4 MG/ML 1 ML VIAL IV PRN (09:38)
[2020-09-15] MEDS: HEPARIN SOD,PORK IN 0.45% NACL 25,000 UNIT in 0.45% NACL 1 250ML.BAG IV SCH (09:58)
[2020-09-15] MEDS ORDERED: MORPHINE SULFATE 4 MG/ML SYRINGE IVP STA (10:23)
--- NOTE | 2020-09-15 11:28 | P.GSCN ---
History of Present Illness Consult date: 09/15/20 Reason for Consult: Left upper Extremity subclavian/ciliary DVT Requesting physician: Felix Burgos History of present illness: This is a pleasant 60-year-old white male who presented to the emergency department with complaints of left upper extremity pain. Patient states he was diagnosed and being treated outpatient with Eliquis 5 mg twice a day for a left upper extremity deep vein thrombosis. In April 2020 he had an ICD placement and was diagnosed with left upper extremity DVT associated with his ICD in August of this year. He has a history of alcohol abuse and smoking historically and has severe nonischemic cardiomyopathy. Denies any previous history of DVT or family history of clotting disorders. He was seen and evaluated by vascular surgery on his last admission in early August and sent home on Eliquis. He states he has been having increased discomfort/throbbing and swelling to his left upper extremity over the last 4 days, he reportedly has an appointment with Dr. Bosch on September 22 but states the pain was too bad and presented to the emergency department for further evaluation. He also stated he felt like he had some shortness of breath yesterday, denies any chest pain. He also complains of veins on his left upper arm and chest that seems swollen. He is able to move the left upper extremity without any difficulty including his fingers. He had a left upper extremity venous Doppler ultrasound showing obstructing thrombus within the subclavian and left axillary vein. He also underwent CT angiogram of the chest which showed no evidence for pulmonary embolus. Moderate diffuse bronchial wall thickening suggests bronchitis or uncontrolled asthma. Redemonstration moderate circumferential wall thickening of the distal esophagus correlate for esophagitis. Esophageal neoplasm considered less likely given relative stability over the last month direct visualization recommended. Review of Systems A 14 point review of systems was completed all pertinent positives and negatives as stated in the HPI Past Medical History Past Medical History: COPD, Hyperlipidemia, Hypertension, Myocardial Infarction ([place]), Osteoarthritis (OA) Additional Past Medical History / Comment(s): arthritis, "shakes", syncope, blood clot to lt arm. EF-20/25% Last Myocardial Infarction Date:: 02/25/20 History of Any Multi-Drug Resistant Organisms: None Reported Past Surgical History: Appendectomy, Heart Catheterization, Pacemaker Past Anesthesia/Blood Transfusion Reactions: No Reported Reaction Type of Cardiac Device: Permanent Pacemaker Device Placement Date:: 05/01/20 Past Psychological History: No Psychological Hx Reported Smoking Status: Former smoker Past Alcohol Use History: None Reported Past Drug Use History: None Reported - Past Family History Mother Family Medical History: Cancer Additional Family Medical History / Comment(s): Cancer in jaw Father Family Medical History: COPD Medications and Allergies Home Medications Medication Instructions Recorded Confirmed Type Spironolactone [Aldactone] 12.5 mg PO DAILY 02/25/20 09/15/20 History Atorvastatin [Lipitor] 40 mg PO DAILY 90 Days #90 tab 02/29/20 09/15/20 Rx Cholecalciferol [Vitamin D3 (25 25 mcg PO DAILY 08/12/20 09/15/20 History Mcg = 1000 Iu)] Vitamin B Complex 1 cap PO DAILY 08/12/20 09/15/20 History Metoprolol Tartrate [Lopressor] 50 mg PO BID 08/14/20 09/15/20 History Sacubitril/Valsartan [Entresto 24 1 tab PO BID 08/14/20 09/15/20 History mg-26 mg Tablet] Apixaban [Eliquis] 5 mg PO BID #60 tab 08/17/20 09/15/20 Rx Ascorbic Acid [Vitamin C] 1,000 mg PO DAILY tab 08/18/20 09/15/20 Rx Furosemide [Lasix] 20 mg PO BID@0900,1600 30 Days #60 08/18/20 09/15/20 Rx tab Aspirin EC [Ecotrin Low Dose] 81 mg PO DAILY 09/15/20 09/15/20 History Allergies Allergy/AdvReac Type Severity Reaction Status Date / Time No Known Allergies Allergy Verified 09/15/20 09:28 Surgical - Exam Vital Signs Temp Pulse Resp BP Pulse Ox 97.8 F 111 H 18 148/77 96 09/15/20 07:13 09/15/20 07:13 09/15/20 07:13 09/15/20 07:13 09/15/20 07:13 General appearance: The patient is alert, oriented, in no acute distress. HET: Head is normocephalic and atraumatic. Pupils are equal and reactive. Neck: Supple without lymphadenopathy. Trachea midline. Heart: S1 S2. Regular rate and rhythm. Lungs: Fair to auscultation. Abdomen: Soft, nontender, nondistended. Extremities: Normal skin color and turgor. Left upper extremity with swelling and redness, full range of motion. Palpable bilateral +2 radial pulse. Neurological: No focal deficits. Strength and sensation are grossly intact. Results - Labs 09/15/20 07:51 09/15/20 07:51 Abnormal Lab Results - Last 24 Hours (Table) 09/15/20 09/15/20 Range/Units 07:51 07:51 RBC 4.23 L (4.30-5.90) m/uL Chloride 109 H (98-107) mmol/L Diabetes panel 09/15/20 Range/Units 07:51 Sodium 140 (137-145) mmol/L Potassium 3.9 (3.5-5.1) mmol/L Chloride 109 H (98-107) mmol/L Carbon Dioxide 24 (22-30) mmol/L BUN 10 (9-20) mg/dL Creatinine 0.97 (0.66-1.25) mg/dL Glucose 99 (74-99) mg/dL Calcium 9.2 (8.4-10.2) mg/dL AST 26 (17-59) U/L ALT 20 (4-49) U/L Alkaline Phosphatase 92 (38-126) U/L Total Protein 6.9 (6.3-8.2) g/dL Albumin 4.2 (3.5-5.0) g/dL Calcium panel 09/15/20 Range/Units 07:51 Calcium 9.2 (8.4-10.2) mg/dL Albumin 4.2 (3.5-5.0) g/dL Pituitary panel 09/15/20 Range/Units 07:51 Sodium 140 (137-145) mmol/L Potassium 3.9 (3.5-5.1) mmol/L Chloride 109 H (98-107) mmol/L Carbon Dioxide 24 (22-30) mmol/L BUN 10 (9-20) mg/dL Creatinine 0.97 (0.66-1.25) mg/dL Glucose 99 (74-99) mg/dL Calcium 9.2 (8.4-10.2) mg/dL Adrenal panel 09/15/20 Range/Units 07:51 Sodium 140 (137-145) mmol/L Potassium 3.9 (3.5-5.1) mmol/L Chloride 109 H (98-107) mmol/L Carbon Dioxide 24 (22-30) mmol/L BUN 10 (9-20) mg/dL Creatinine 0.97 (0.66-1.25) mg/dL Glucose 99 (74-99) mg/dL Calcium 9.2 (8.4-10.2) mg/dL Total Bilirubin 0.3 (0.2-1.3) mg/dL AST 26 (17-59) U/L ALT 20 (4-49) U/L Alkaline Phosphatase 92 (38-126) U/L Total Protein 6.9 (6.3-8.2) g/dL Albumin 4.2 (3.5-5.0) g/dL - Imaging Comments: Left upper extremity venous Doppler ultrasound showing obstructing thrombus within the subclavian and left axillary vein. CT angiogram of the chest which showed no evidence for pulmonary embolus. Moderate diffuse bronchial wall thickening suggests bronchitis or uncontrolled asthma. Redemonstration moderate circumferential wall thickening of the distal esophagus correlate for esophagitis. Esophageal neoplasm considered less likely given relative stability over the last month direct visualization recommended. Assessment and Plan Assessment: 1. Left upper extremity subclavian and axillary deep vein thrombosis 2. Strength of COPD 3. History of hyperlipidemia 4. History of hypertension 5. Coronary artery disease, pacemaker 05/01/2020 Plan: 1. Continue IV heparin drip 2. Elevate left upper extremity 3. Compression stocking to left upper extremity 4. Further recommendations to follow Thank you for this consultation and allowing us take part in the plan of care of your patient during his hospital stay. The impression and plan of care has been dictated as directed. I performed a history and examination of this patient, discussed the same with the dictator. I agree with the dictator's note ,documented as a scribe. Any additional findings or plans will be noted.
[2020-09-15] MEDS: HYDROcodone/APAP 5-325MG 1 EACH TAB PO PRN ×2 (17:44→23:20)
[2020-09-15] MEDS: SACUBITRIL/VALSARTAN 24 MG-26 MG TABLET PO SCH (20:30)
[2020-09-15] MEDS: METOPROLOL TARTRATE 50 MG TAB PO SCH (20:30)
[2020-09-15] MEDS: MORPHINE SULFATE 2 MG/ML SYRINGE IVP PRN (20:30)
[2020-09-16] MEDS: MORPHINE SULFATE 2 MG/ML SYRINGE IVP PRN (05:26)
--- NOTE | 2020-09-16 05:57 | HP ---
HISTORY AND PHYSICAL A 60-year-old admitted with left upper extremity subclavian ciliary DVT, axillary DVT, worsening upper extremity pain, swelling in the entire arm up into the anterior chest with blood vessel swelling in the chest in the upper shoulder area. Increased swelling in the left upper extremity even though he is on Eliquis 5 mg b.i.d., which he states he has been taking for the recent subclavian DVT. He also has a ICD placement April 2020 which she ended up getting a DVT in August of this year. He has a history of alcohol abuse, smoking. Historically, severe nonischemic cardiomyopathy. He has history of systolic CHF, PND, orthopnea, and dyspnea with exertion. CT angiogram of the chest showed no PE. CT scan chest was uncontrolled asthma. EGD shows esophageal distal swelling for which GI is consulted for possibly EGD. REVIEW OF SYMPTOMS: A 14-point review of systems otherwise is negative. PAST MEDICAL HISTORY: COPD, dyslipidemia, hypertension, myocardial infarction, osteoarthritis, arthritis, shakes, syncope, ejection fraction 20-25%. FAMILY HISTORY: Mother cancer of the jaw. Father COPD. SOCIAL HISTORY: Former smoker. No alcohol or drugs. MEDICATIONS: Aldactone 12.5 mg daily, Lipitor 40 mg daily, vitamin D 1000 international units daily, vitamin B complex 1 cap daily, metoprolol tartrate 50 mg b.i.d., Entresto 24/26 b.i.d., Eliquis 5 b.i.d., vitamin C 1000 mg subcu daily, Lasix 20 mg b.i.d., aspirin 81 mg daily. ALLERGIES: Negative. PHYSICAL EXAMINATION: Temperature 97.8, pulse 111, respiratory 16-18, blood pressure 140s over 70s, O2 96%. Constitutional no acute distress. Head normocephalic, atraumatic. Neck is supple. No mass. Heart S1, S2. Lungs clear. Extremities show swelling in the left upper extremity into the anterior chest and shoulders with axillary vein prominence. Neurologic cranial nerves are intact. Psych fair mood and affect. LAB: white count 6.3, hemoglobin is 13.5. BUN is 10, creatinine 0.97, sodium 140, potassium 3.9. AST 26, ALT 20. ASSESSMENT: 1. Left upper extremity subclavian, axillary, deep venous thrombosis, failed Eliquis, possible vein extraction of the blood clot will be done by Dr. Bosch. 2. Chronic obstructive pulmonary disease. 3. Asthmatic bronchitis. 4. Dyslipidemia. 5. Hypertension. 6. Coronary artery disease. 7. Systolic congestive heart failure. PLAN: Continue heparin drip, compression stockings to the left upper extremity. Possible clot extraction this week if cleared by Cardiology for pacemaker involvement, possible pacemaker removal. MMODL / IJN: [id number] /
[2020-09-16] MEDS: FUROSEMIDE 20 MG TAB PO SCH ×2 (09:00→16:43)
[2020-09-16] MEDS: CHOLECALCIFEROL 25 MCG (1000 IU) TABLET PO SCH (09:00)
[2020-09-16] MEDS: ASCORBIC ACID 500 MG TAB PO SCH (09:00)
[2020-09-16] MEDS ORDERED: NON FORMULARY DRUG (Vitamin B Complex [Vitamin B Complex] 1 EACH Capsule) PO SCH (09:00)
[2020-09-16] MEDS: ATORVASTATIN 40 MG TAB PO SCH (09:00)
[2020-09-16] MEDS: SACUBITRIL/VALSARTAN 24 MG-26 MG TABLET PO SCH ×2 (09:01→20:54)
[2020-09-16] MEDS: PANTOPRAZOLE 40 MG/10 ML VIAL IVP SCH ×2 (09:01→20:47)
[2020-09-16] MEDS: METOPROLOL TARTRATE 50 MG TAB PO SCH ×2 (09:01→20:46)
[2020-09-16] MEDS: SPIRONOLACTONE 25 MG TAB PO SCH (09:03)
[2020-09-16] MEDS: ASPIRIN 81 MG PO SCH (10:26)
[2020-09-16] MEDS: HEPARIN SOD,PORK IN 0.45% NACL 25,000 UNIT in 0.45% NACL 1 250ML.BAG IV SCH ×2 (10:26→15:12)
[2020-09-16] MEDS ORDERED: ACETAMINOPHEN TAB 325 MG TAB PO PRN (11:45)
[2020-09-16] MEDS ORDERED: LIDOCAINE 1% INJ 10MG/ML (20 ML MDV) SQ ONE (12:31)
[2020-09-16] MEDS ORDERED: MIDAZOLAM 2 MG/2 ML VIAL IV ONE (12:31)
--- NOTE | 2020-09-16 12:33 | P.CRDCN ---
History of Present Illness Consult date: 09/16/20 History of present illness: HISTORY OF PRESENT ILLNESS: This is a 60-year-old male with a past medical history significant for nonischemic cardiac myopathy with AICD placement, hyperlipidemia, hypertension, nicotine dependence, and former alcohol abuse. Patient follows in the office with Dr. Thomas. We have been asked to see the patient in consultation for QT prolongation. Patient examined at the bedside. Patient underwent AICD" in April 2020. Patient was was later found to have a DVT in the left upper extremity. He was hospitalized last month due to this and started on Eliquis for anticoagulation. Patient was supposed to have a follow-up appointment with his vascular surgeon on September 22. However, the patient states he had increasing pain and swelling to his left upper extremity and came to the hospital for further evaluation. The patient denies any chest pain or pressure. He denies shortness of breath. EKG reveals sinus mechanism. QTC on initial EKG 496. Repeat EKG reveals QTC of 515. Chest CTA: No evidence for pulmonary embolism Laboratory data: WBC 6.3. Hemoglobin 13.5. Pill count 239. Sodium 140. Potassium 3.9. BUN 10. Creatinine 0.97. Magnesium 1.9. Current home cardiac medications include Aldactone 12.5 mg daily, metoprolol tartrate 50 mg twice a day, Lasix 20 mg twice a day, atorvastatin 40 mg daily, aspirin 81 mg daily, Entresto 24-26mg and Eliquis 5 mg twice a day Most recent echocardiogram obtained on 08/15/2020 revealed ejection fraction of 50% and mild tricuspid regurgitation Cardiac catheterization history: February 2020 revealing minor irregularities but no significant coronary artery disease. Likely nonischemic cardiomyopathy. Venous Doppler: Obstructing thrombus within the subclavian and left axillary vein REVIEW OF SYSTEMS: At the time of my exam: CONSTITUTIONAL: Denies fever or chills. HEENT: Denies blurred vision, vision changes, or eye pain. Denies hemoptysis CARDIOVASCULAR: Denies chest pain. Denies orthopnea. Denies PND. Denies palpitat ions RESPIRATORY: Denies shortness of breath. GASTROINTESTINAL: Denies abdominal pain. Denies nausea or vomiting. HEMATOLOGIC: Denies bleeding disorders. GENITOURINARY: Denies any blood in urine. SKIN: Denies pruitis. Denies rash. PHYSICAL EXAM: VITAL SIGNS: Reviewed. GENERAL: Well-developed in no acute distress. HEENT: Head is normocephalic. Pupils are equal, round. Sclerae anicteric. Mucous membranes of the mouth are moist. Neck supple. LUNGS: Respirations even and unlabored. Lungs essentially clear to auscultation bilaterally. HEART: Regular rate and rhythm. S1 and S2 heard. ABDOMEN: Soft. Nondistended. Nontender. EXTREMITIES: Normal range of motion. No clubbing or cyanosis. Peripheral pulses intact. No lower extremity edema. Minimal swelling to left upper extremity with tenderness to light palpation. NEUROLOGIC: Awake and alert. Oriented x 3. ASSESSMENT: Left upper extremity DVT of subclavian and left axillary vein Nonischemic cardiomyopathy with history of AICD implantation, April 2020 Hyperlipidemia Hypertension COPD Former nicotine dependence Former alcohol abuse PLAN: No need to repeat echocardiogram as this was performed last month Resume home cardiac medications Avoid any QT prolonging medications Monitor electrolytes Vascular following. Patient scheduled to undergo venogram with possible thrombectomy and thrombolysis with Dr. Hermosillo No absolute contraindications from a cardiac standpoint to undergo vascular procedure today Further recommendations pending patient's course Nurse practitioner note has been reviewed by physician. Signing provider agrees with the documented findings, assessment, and plan of care. Past Medical History Past Medical History: COPD, Hyperlipidemia, Hypertension, Myocardial Infarction ([place]), Osteoarthritis (OA) Additional Past Medical History / Comment(s): arthritis, "shakes", syncope, blood clot to lt arm. EF-20/25% Last Myocardial Infarction Date:: 02/25/20 History of Any Multi-Drug Resistant Organisms: None Reported Past Surgical History: AICD, Appendectomy, Heart Catheterization, Pacemaker Past Anesthesia/Blood Transfusion Reactions: No Reported Reaction Type of Cardiac Device: Permanent Pacemaker, AICD Device Placement Date:: 05/01/20 Past Psychological History: No Psychological Hx Reported Smoking Status: Former smoker Past Alcohol Use History: None Reported Additional Past Alcohol Use History / Comment(s): QUIT SMOKING 02/2020, patient says he hasn't drank alcohol since april 2020 Past Drug Use History: None Reported - Past Family History Mother Family Medical History: Cancer Additional Family Medical History / Comment(s): Cancer in jaw Father Family Medical History: COPD Medications and Allergies Home Medications Medication Instructions Recorded Confirmed Type Spironolactone [Aldactone] 12.5 mg PO DAILY 02/25/20 09/15/20 History Atorvastatin [Lipitor] 40 mg PO DAILY 90 Days #90 tab 02/29/20 09/15/20 Rx Cholecalciferol [Vitamin D3 (25 25 mcg PO DAILY 08/12/20 09/15/20 History Mcg = 1000 Iu)] Vitamin B Complex 1 cap PO DAILY 08/12/20 09/15/20 History Metoprolol Tartrate [Lopressor] 50 mg PO BID 08/14/20 09/15/20 History Sacubitril/Valsartan [Entresto 24 1 tab PO BID 08/14/20 09/15/20 History mg-26 mg Tablet] Apixaban [Eliquis] 5 mg PO BID #60 tab 08/17/20 09/15/20 Rx Ascorbic Acid [Vitamin C] 1,000 mg PO DAILY tab 08/18/20 09/15/20 Rx Furosemide [Lasix] 20 mg PO BID@0900,1600 30 Days #60 08/18/20 09/15/20 Rx tab Aspirin EC [Ecotrin Low Dose] 81 mg PO DAILY 09/15/20 09/15/20 History Allergies Allergy/AdvReac Type Severity Reaction Status Date / Time No Known Allergies Allergy Verified 09/15/20 09:28 Physical Exam Vitals: Vital Signs Temp Pulse Pulse Resp BP BP Pulse Ox 09/16/20 11:45 59 L 91/61 09/16/20 11:27 97.6 F 66 18 102/65 97 09/16/20 08:55 97.5 F L 67 18 105/74 98 09/16/20 04:00 62 18 115/74 97 09/16/20 00:00 68 18 119/74 97 09/15/20 20:00 98.1 F 88 18 139/94 98 09/15/20 16:56 97 F L 85 18 136/89 96 09/15/20 14:00 83 18 09/15/20 13:30 97.2 F L 83 18 133/95 97 09/15/20 12:44 97.8 F 85 18 121/84 96 Intake and Output 09/15/20 09/16/20 09/16/20 22:59 06:59 14:59 Intake Total 81.886 149.799 Balance 81.886 149.799 Intake: Intake, IV Titration 81.886 149.799 Amount Heparin Sod,Pork in 0.45% 81.886 149.799 NaCl 25,000 unit In 0.45 % NaCl 1 250ml.bag @ 18 UNITS/KG/HR 11.839 mls/hr IV .Q21H7M [facility] Rx#: [id number] Other: # Voids 1 1 # Bowel Movements 1 Weight 71.9 kg Results 09/15/20 07:51 09/15/20 07:51 Coagulation 09/15/20 09/15/20 09/16/20 Range/Units 15:56 23:59 08:39 APTT 99.3 H 45.6 H 47.8 H (22.0-30.0) sec Current Medications Generic Name Dose Route Start Last Admin Trade Name Freq PRN Reason Stop Dose Admin Acetaminophen 650 mg 09/16/20 11:45 09/16/20 11:50 Acetaminophen Tab 325 Mg Tab PO 650 mg Q4HR PRN Administration Fever and/ or Pain Hydrocodone Bitart/Acetaminophen 1 each 09/15/20 17:18 09/15/20 23:20 Hydrocodone/Apap 5-325mg 1 Each Tab PO 1 each Q4HR PRN Administration Pain Ascorbic Acid 1,000 mg 09/16/20 09:00 09/16/20 09:00 Ascorbic Acid 500 Mg Tab PO 1,000 mg DAILY GONZÁLEZ Administration Aspirin 81 mg 09/16/20 09:00 09/16/20 10:26 Aspirin 81 Mg PO Not Given DAILY [facility] Atorvastatin Calcium 40 mg 09/16/20 09:00 09/16/20 09:00 Atorvastatin 40 Mg Tab PO 40 mg DAILY GONZÁLEZ Administration Cholecalciferol 25 mcg 09/16/20 09:00 09/16/20 09:00 Cholecalciferol 25 Mcg (1000 Iu) Tablet PO 25 mcg DAILY GONZÁLEZ Administration Furosemide 20 mg 09/16/20 09:00 09/16/20 09:00 Furosemide 20 Mg Tab PO 20 mg BID@0900,1600 GONZÁLEZ Administration Heparin Sodium (Porcine) 0 unit 09/15/20 09:21 Heparin Sodium 1,000 Un/Ml (10ml Vl) IV PER PROTOCOL PRN Low PTT Protocol Heparin Sodium/Sodium Chloride 250 mls @ 11.839 mls/hr 09/15/20 09:30 09/16/20 10:26 25,000 unit/ Sodium Chloride IV Not Given .Q21H7M GONZÁLEZ Protocol 18 UNITS/KG/HR Metoprolol Tartrate 50 mg 09/15/20 21:00 09/16/20 09:01 Metoprolol Tartrate 50 Mg Tab PO 50 mg BID GONZÁLEZ Administration Morphine Sulfate 2 mg 09/15/20 17:10 09/16/20 05:26 Morphine Sulfate 2 Mg/Ml Syringe IVP 2 mg Q4H PRN Administration Pain/Discomfort Naloxone HCl 0.2 mg 09/15/20 09:38 Naloxone 0.4 Mg/Ml 1 Ml Vial IV Q2M PRN Opioid Reversal Pantoprazole Sodium 40 mg 09/16/20 09:00 09/16/20 09:01 Pantoprazole 40 Mg/10 Ml Vial IVP 40 mg BID GONZÁLEZ Administration Sacubitril/Valsartan 1 each 09/15/20 21:00 09/16/20 09:01 Sacubitril/Valsartan 24 Mg-26 Mg Tablet PO 1 each BID GONZÁLEZ Administration Spironolactone 12.5 mg 09/16/20 09:00 09/16/20 09:03 Spironolactone 25 Mg Tab PO 12.5 mg DAILY GONZÁLEZ Administration Intake and Output 09/15/20 09/16/20 09/16/20 22:59 06:59 14:59 Intake Total 81.886 149.799 Balance 81.886 149.799 Intake: Intake, IV Titration 81.886 149.799 Amount Heparin Sod,Pork in 0.45% 81.886 149.799 NaCl 25,000 unit In 0.45 % NaCl 1 250ml.bag @ 18 UNITS/KG/HR 11.839 mls/hr IV .Q21H7M [facility] Rx#: [id number] Other: # Voids 1 1 # Bowel Movements 1 Weight 71.9 kg 09/15/20 07:51 09/15/20 07:51
[2020-09-16] MEDS ORDERED: fentaNYL (PF) 50 MCG/ML 2 ML AMP IV ONE (12:34)
[2020-09-16] MEDS ORDERED: SODIUM CHLORIDE 0.9% 500 ML 500 ML IV ONE (12:34)
--- NOTE | 2020-09-16 12:46 | P.CONS ---
History of Present Illness - Reason for Consult Consult date: 09/16/20 EGD Requesting physician: Felix Burgos - Chief Complaint Swelling and pain in left upper extremity, left upper extremity DVT - History of Present Illness This is a pleasant 60-year-old white male who presented to the emergency department with complaints of left upper extremity pain. Patient states he was diagnosed and being treated outpatient with Eliquis 5 mg twice a day for a left upper extremity deep vein thrombosis. In April 2020 he had an ICD placement and was diagnosed with left upper extremity DVT associated with his ICD in August of this year. He has a history of alcohol abuse and smoking historically and has severe nonischemic cardiomyopathy. Denies any previous history of DVT or family history of clotting disorders. He was seen and evaluated by vascular surgery on his last admission in early August and sent home on Eliquis. He states he has been having increased discomfort/throbbing and swelling to his left upper extremity over the last 4 days, he reportedly has an appointment with Dr. Bosch on September 22 but states the pain was too bad and presented to the emergency department for further evaluation. He also stated he felt like he had some shortness of breath yesterday, denies any chest pain. He also complains of veins on his left upper arm and chest that seems swollen. He is able to move the left upper extremity without any difficulty including his fingers. He had a left upper extremity venous Doppler ultrasound showing obstructing thrombus within the subclavian and left axillary vein. He also underwent CT angiogram of the chest which showed no evidence for pulmonary embolus. Moderate diffuse bronchial wall thickening suggests bronchitis or uncontrolled asthma. Redemonstration moderate circumferential wall thickening of the distal esophagus correlate for esophagitis. Esophageal neoplasm considered less likely given re lative stability over the last month direct visualization recommended. Gastroenterology was consulted for abnormal CT scan. Patient denies any history of peptic ulcer disease, gastroesophageal reflux disease, heartburn, abdominal pain, nausea, or vomiting. He denies any difficulty with swallowing. He denies any use of NSAIDs. Currently on a heparin drip for his deep vein thrombosis and plans for thrombectomy this afternoon. Current labs include WBC 6.3, hemoglobin 13.5, hematocrit 39.3, platelets 239,000, total bilirubin 0.3, alkaline phosphatase 82, AST 26, ALT 20. Review of Systems REVIEW OF SYSTEMS: CARDIOPULMONARY: No chest pain or shortness of breath. Gastrointestinal: No abdominal pain, or burning sensation in abdomen. No nausea or vomiting. No hematemesis, coffee-ground emesis. No rectal bleeding, or melena. GENITOURINARY: No dysuria or hematuria. MUSCULOSKELETAL: Reports normal range of motion., Joint pain. Swelling and pain in left upper extremity SKIN: No rashes. No jaundice. ENDOCRINE: No chills, fevers. No excessive weight gain or loss. No polydipsia or polyuria. PSYCHIATRIC: Unremarkable. NEUROLOGY: No change in mental status. Denies dizziness, headache. ENT: Vision unremarkable. CONSTITUTIONAL: No recent weight loss. No fever, chills, night sweats. Past Medical History Past Medical History: COPD, Hyperlipidemia, Hypertension, Myocardial Infarction ([place]), Osteoarthritis ([place]) Additional Past Medical History / Comment(s): arthritis, "shakes", syncope, blood clot to lt arm. EF-20/25% Last Myocardial Infarction Date:: 02/25/20 History of Any Multi-Drug Resistant Organisms: None Reported Past Surgical History: AICD, Appendectomy, Heart Catheterization, Pacemaker Past Anesthesia/Blood Transfusion Reactions: No Reported Reaction Type of Cardiac Device: Permanent Pacemaker, AICD Device Placement Date:: 05/01/20 Past Psychological History: No Psychological Hx Reported Smoking Status: Former smoker Past Alcohol Use History: None Reported Additional Past Alcohol Use History / Comment(s): QUIT SMOKING 02/2020, patient says he hasn't drank alcohol since april 2020 Past Drug Use History: None Reported - Past Family History Mother Family Medical History: Cancer Additional Family Medical History / Comment(s): Cancer in jaw Father Family Medical History: COPD Medications and Allergies Home Medications Medication Instructions Recorded Confirmed Type Spironolactone [Aldactone] 12.5 mg PO DAILY 02/25/20 09/15/20 History Atorvastatin [Lipitor] 40 mg PO DAILY 90 Days #90 tab 02/29/20 09/15/20 Rx Cholecalciferol [Vitamin D3 (25 25 mcg PO DAILY 08/12/20 09/15/20 History Mcg = 1000 Iu)] Vitamin B Complex 1 cap PO DAILY 08/12/20 09/15/20 History Metoprolol Tartrate [Lopressor] 50 mg PO BID 08/14/20 09/15/20 History Sacubitril/Valsartan [Entresto 24 1 tab PO BID 08/14/20 09/15/20 History mg-26 mg Tablet] Apixaban [Eliquis] 5 mg PO BID #60 tab 08/17/20 09/15/20 Rx Ascorbic Acid [Vitamin C] 1,000 mg PO DAILY tab 08/18/20 09/15/20 Rx Furosemide [Lasix] 20 mg PO BID@0900,1600 30 Days #60 08/18/20 09/15/20 Rx tab Aspirin EC [Ecotrin Low Dose] 81 mg PO DAILY 09/15/20 09/15/20 History Allergies Allergy/AdvReac Type Severity Reaction Status Date / Time No Known Allergies Allergy Verified 09/15/20 09:28 Physical Exam Vitals: Vital Signs Temp Pulse Pulse Resp BP BP Pulse Ox 09/16/20 08:55 97.5 F L 67 18 105/74 98 09/16/20 08:25 98.1 F 90 22 112/72 95 09/16/20 04:00 62 18 115/74 97 09/16/20 00:00 68 18 119/74 97 09/15/20 20:00 98.1 F 88 18 139/94 98 09/15/20 16:56 97 F L 85 18 136/89 96 09/15/20 14:00 83 18 09/15/20 13:30 97.2 F L 83 18 133/95 97 09/15/20 12:44 97.8 F 85 18 121/84 96 09/15/20 10:35 92 18 145/92 98 Intake and Output 09/15/20 09/16/20 09/16/20 22:59 06:59 14:59 Intake Total 81.886 149.799 Balance 81.886 149.799 Intake: Intake, IV Titration 81.886 149.799 Amount Heparin Sod,Pork in 0.45% 81.886 149.799 NaCl 25,000 unit In 0.45 % NaCl 1 250ml.bag @ 18 UNITS/KG/HR 11.839 mls/hr IV .Q21H7M [facility] Rx#: [id number] Other: # Voids 1 1 # Bowel Movements 1 Weight 71.9 kg General appearance: The patient is alert, oriented, in no acute distress. HET: Head is normocephalic and atraumatic. Conjunctiva pink. Sclera anicteric. Neck: Supple without lymphadenopathy. Trachea midline. Heart: S1 S2. Regular rate and rhythm. Lungs: Clear to auscultation. Abdomen: Soft, nontender, nondistended with bowel sounds. Guarding or rigidity. Extremities: Normal skin color and turgor. Swelling and redness in the left upper extremity from the elbow to shoulder. Full range of motion. Neurological: No focal deficits. Alert and oriented 3. Results CBC & Chem 7: 09/15/20 07:51 09/15/20 07:51 Labs: Abnormal Lab Results - Last 24 Hours (Table) 09/15/20 09/15/20 09/16/20 Range/Units 15:56 23:59 08:39 APTT 99.3 H 45.6 H 47.8 H (22.0-30.0) sec CT scan - chest: report reviewed (CT angiogram of the chest which showed no evidence for pulmonary embolus. Moderate diffuse bronchial wall thickening suggests bronchitis or uncontrolled asthma. Redemonstration moderate circumferential wall thickening of the distal esophagus correlate for esophagitis. Esophageal neoplasm consider) Assessment and Plan (1) Abnormal finding on CT scan Narrative/Plan: 60-year-old male patient who presented to the emergency department with increased pain and swelling to his left upper extremity with a known cephalic and axillary deep vein thrombosis. Patient currently on Eliquis 5 mg twice a day. Underwent a computed tomography angiogram of the chest as part of this w orkup showing no evidence for pulmonary embolus. Moderate diffuse bronchial wall thickening suggests bronchitis or uncontrolled asthma. Redemonstrated moderate circumferential wall thickening of the distal esophagus correlate for esophagitis. Esophageal neoplasm considered less likely given relative stability over the last month. Direct visualization recommended. Patient denies any previous history of peptic ulcer disease, gastroesophageal reflux disease or heartburn. He's had no previous EGDs or colonoscopy. He has no difficulty with swallowing, no nausea vomiting, or abdominal pain. Current Visit: Yes Status: Acute Code(s): R93.89 - ABNORMAL FINDINGS ON DX IMAGING OF OTH BODY STRUCTURES SNOMED Code(s): 014186572 (2) Deep vein thrombosis (DVT) of upper extremity Current Visit: Yes Status: Acute Code(s): I82.629 - ACUTE EMBOLISM AND THROMBOSIS OF DEEP VN UNSP UP EXTREM SNOMED Code(s): 732069567 (3) COPD (chronic obstructive pulmonary disease) Current Visit: No Status: Acute Code(s): J44.9 - CHRONIC OBSTRUCTIVE PULMONARY DISEASE, UNSPECIFIED SNOMED Code(s): 78349905 (4) History of implantable cardioverter-defibrillator (ICD) insertion Current Visit: No Status: Acute Code(s): Z95.810 - PRESENCE OF AUTOMATIC (IMPLANTABLE) CARDIAC DEFIBRILLATOR SNOMED Code(s): 700635438 Plan: 1. Continue symptomatic and supportive care 2. Diet as tolerated 3. protonic 40 mg twice a day 4. CT angiogram reviewed 5. In light of current upper extremity DVT on anticoagulation and undergoing surgical intervention, with reports of CT angiogram findings stable from previous 1 month ago as well as patient currently having no GI signs or symptoms, would defer endoscopy evaluation to the outpatient setting. Also discussed with patient recommend screening colonoscopy for which patient is agreeable. Patient could be set up for outpatient EGD and colonoscopy once otherwise stabilized. Thank you for this consultation, we will sign off at this time Dr. Francis I agree with the dictator's note, documented as a scribe by Kasandra Lo.
[2020-09-16] MEDS ORDERED: ALTEPLASE BOLUS 1 MG/1 ML SYRINGE IV STA (12:58)
--- NOTE | 2020-09-16 13:07 | IR ---
EXAMINATION TYPE: IR venogram upper ext LT DATE OF EXAM: 09/16/2020 COMPARISON: NONE HISTORY: Fluoroscopy time. Fluoroscopy was provided to the referring clinician.
--- NOTE | 2020-09-16 13:13 | P.OP ---
Date of Procedure: 09/16/20 Description of Procedure: Preoperative diagnosis: Occlusive axillary and subclavian left upper extremity DVT Postoperative diagnosis: Same Procedure: [ #1 ultrasound guided left basilic vein access #2 left upper extremity venogram #3 superior venacavogram #4 initiation of thrombolysis #5 20 minutes moderate conscious sedation] Surgeon: Luba Hermosillo D.O. EBL: [Less than 10 mL] IV fluids: [See records] Urine output: [Not measured] Drains: [None] Complications: [None immediately apparent] Condition: [Stable to recovery] Operative indication and findings: [The patient is a 60-year-old male with a cardiomyopathy requiring a pacemaker. Back in August he was found to have DVT nonocclusive of his left subclavian axillary veins. At that time he was not having overt clinical problems or swelling therefore he was discharged home on oral anticoagulation. He continues to have pain and presented to the ER. A repeat imaging showed a nonocclusive thrombus in the axilla and subclavian vein. Given these findings he was initiated on heparin and long discussion was had regarding going forward with a venogram possible thrombolytics, possible venoplasty. All the sutures were discussed, also was discussed the likelihood of recurrence due to the necessary pacer wires in the subclavian vein. He seemingly understood and was willing to proceed as such.] Procedure in detail: []Patient was taken to the special suite and placed in supine position. The left upper extremity was prepped and draped in usual sterile fashion. A preprocedure timeout was performed, all parties were in agreement. The ultrasound was utilized and the left basilic vein was identified. The skin overlying was anesthetized 1% lidocaine plain. A micropuncture needle was used and a 5-Turkish sheath was placed with Seldinger technique. A venogram was performed showing a patent basilic vein with occlusion and nonvisualization of the axillary vein. Catheters and wires were used access the superior vena cava. A superior venacavogram was performed. Given the findings on the ultrasound at this time it was planned to undergo thrombolytics and a 20 cm infusion catheter was placed. There is a likely area of stenosis at the level of the pacer wire in the subclavian vein given the small area of resistance. We will plan for take back tomorrow with possible angioplasty. The catheter was sutured in place and TPA was initiated. Patient will be monitored in the ICU.
[2020-09-16] MEDS ORDERED: IOPAMIDOL-370 100ML BTL INJ ONE (13:14)
[2020-09-16] MEDS ORDERED: ALTEPLASE 10 MG in SODIUM CHLORIDE 0.9% 100 ML IV ONE (13:15)
[2020-09-16] MEDS ORDERED: SODIUM CHLORIDE 0.9% 50 ML MINI-BAG IV ONE (14:00)
[2020-09-16 14:39] LABS: Glucose,Whole Blood 139 mg/dL (75-99)
[2020-09-16] MEDS ORDERED: HEPARIN SOD,PORK IN 0.45% NACL 25,000 UNIT in 0.45% NACL 1 250ML.BAG IV SCH (18:00)
[2020-09-16 19:24] LABS: Basophils % (A) 1 %; Eosinophils # (A) 0.6 k/uL (0-0.7); Eosinophils % (A) 7 %; HCT 43.3 % (39.0-53.0); HGB 14.7 gm/dL (13.0-17.5); Lymphocytes # (A) 1.7 k/uL (1.0-4.8); Lymphocytes % (A) 20 %; MCH 31.9 pg (25.0-35.0); MCHC 33.9 g/dL (31.0-37.0); MCV 94.2 fL (80.0-100.0); Mean Platelet Volume 7.8; Monocytes # (A) 0.4 k/uL (0-1.0); Monocytes % (A) 4 %; Neutrophils # (A) 5.8 k/uL (1.3-7.7); Neutrophils % (A) 68 %; Platelet Count 242 k/uL (150-450); RBC 4.59 m/uL (4.30-5.90); RDW 13.3 % (11.5-15.5); WBC 8.5 k/uL (3.8-10.6)
--- NOTE | 2020-09-16 20:08 | P.PN ---
Progress Note - Text Progress Note Date: 09/16/20 Patient seen and examined. States that his left arm is feeling much better already with decreased pain. He says his arm feels warmer overall. No evidence of bleeding. Labs drawn. Monitor labs overnight, plan for take back tomorrow
[2020-09-16] MEDS: HYDROcodone/APAP 5-325MG 1 EACH TAB PO PRN (20:46)
[2020-09-16 23:52] LABS: Basophils % (A) 1 %; Eosinophils # (A) 0.5 k/uL (0-0.7); Eosinophils % (A) 7 %; HCT 42.8 % (39.0-53.0); HGB 14.1 gm/dL (13.0-17.5); Lymphocytes # (A) 1.8 k/uL (1.0-4.8); Lymphocytes % (A) 23 %; MCH 31.6 pg (25.0-35.0); MCV 95.8 fL (80.0-100.0); Mean Platelet Volume 7.4; Monocytes # (A) 0.4 k/uL (0-1.0); Monocytes % (A) 5 %; Neutrophils # (A) 5.1 k/uL (1.3-7.7); Neutrophils % (A) 64 %; Platelet Count 216 k/uL (150-450); RBC 4.47 m/uL (4.30-5.90); RDW 13.3 % (11.5-15.5); WBC 7.9 k/uL (3.8-10.6)
[2020-09-17] MEDS ORDERED: ALTEPLASE 10 MG in SODIUM CHLORIDE 0.9% 100 ML IV ONE ×2
[2020-09-17] MEDS: HYDROcodone/APAP 5-325MG 1 EACH TAB PO PRN (02:32)
[2020-09-17 04:51] LABS: Basophils # (A) 0.1 k/uL (0-0.2); Basophils % (A) 1 %; Eosinophils # (A) 0.4 k/uL (0-0.7); Eosinophils % (A) 6 %; HCT 43.9 % (39.0-53.0); HGB 13.8 gm/dL (13.0-17.5); Lymphocytes # (A) 1.7 k/uL (1.0-4.8); Lymphocytes % (A) 25 %; MCH 29.9 pg (25.0-35.0); MCHC 31.4 g/dL (31.0-37.0); MCV 95.2 fL (80.0-100.0); Mean Platelet Volume 7.6; Monocytes # (A) 0.4 k/uL (0-1.0); Monocytes % (A) 6 %; Neutrophils # (A) 4.2 k/uL (1.3-7.7); Neutrophils % (A) 61 %; Platelet Count 201 k/uL (150-450); RBC 4.61 m/uL (4.30-5.90); RDW 13.8 % (11.5-15.5); WBC 6.8 k/uL (3.8-10.6)
[2020-09-17 05:07] LABS: ALT 14 U/L (4-49); AST 21 U/L (17-59); African American GFR (CKD) >90 (>60 ml/min/1.73 sqM); Albumin 3.3 g/dL (3.5-5.0); Alkaline Phosphatase 94 U/L (38-126); Anion Gap 7 mmol/L; Blood Urea Nitrogen 14 mg/dL (9-20); Calcium 8.8 mg/dL (8.4-10.2); Carbon Dioxide 23 mmol/L (22-30); Chloride 106 mmol/L (98-107); Glucose 118 mg/dL (74-99); Non-African American GFR(CKD) >90 (>60 ml/min/1.73 sqM); Potassium 4.4 mmol/L (3.5-5.1); Sodium 136 mmol/L (137-145); Total Bilirubin 0.2 mg/dL (0.2-1.3)
[2020-09-17] MEDS ORDERED: LIDOCAINE 1% INJ 10MG/ML (20 ML MDV) ONE (08:39)
[2020-09-17] MEDS: SACUBITRIL/VALSARTAN 24 MG-26 MG TABLET PO SCH ×2 (08:40→20:53)
[2020-09-17] MEDS: ASPIRIN 81 MG PO SCH (08:41)
[2020-09-17] MEDS: METOPROLOL TARTRATE 50 MG TAB PO SCH ×2 (08:41→20:53)
[2020-09-17] MEDS: FUROSEMIDE 20 MG TAB PO SCH ×2 (08:41→16:25)
[2020-09-17] MEDS: SPIRONOLACTONE 25 MG TAB PO SCH (08:41)
[2020-09-17] MEDS ORDERED: IV FLUID CONTINUATION 1,000 ML IV ONE (09:00)
[2020-09-17] MEDS ORDERED: IOPAMIDOL-250 50ML BTL IV ONE (09:18)
--- NOTE | 2020-09-17 09:57 | IR ---
EXAMINATION TYPE: IR venogram upper ext LT DATE OF EXAM: 09/17/2020 COMPARISON: NONE HISTORY: Fluoroscopy time. Fluoroscopy was provided to the referring clinician.
[2020-09-17] MEDS ORDERED: APIXABAN 5 MG TAB PO SCH (11:00)
[2020-09-17] MEDS: CHOLECALCIFEROL 25 MCG (1000 IU) TABLET PO SCH (11:09)
[2020-09-17] MEDS: PANTOPRAZOLE 40 MG/10 ML VIAL IVP SCH ×2 (11:09→20:53)
[2020-09-17] MEDS: ATORVASTATIN 40 MG TAB PO SCH (11:10)
[2020-09-17] MEDS: ASCORBIC ACID 500 MG TAB PO SCH (11:10)
--- NOTE | 2020-09-17 11:30 | P.OP ---
Date of Procedure: 09/17/20 Preoperative Diagnosis: Thrombosis left subclavian vein, currently undergoing TPA thrombolytic lysis Postoperative Diagnosis: Same. Procedure(s) Performed: Venogram the existing catheter. Implants: None. Anesthesia: none Surgeon: Bowen Ross Estimated Blood Loss (ml): 0 Urine output (ml): 0 Pathology: none sent Condition: stable Disposition: no change Indications for Procedure: Patient is a 60-year-old male who recently underwent implantation of a dual- chamber pacemaker via the left subclavian approach. The developed swelling of the left upper extremity and was found be suffering from thrombosis of the left subclavian vein. Yesterday the patient was started on a TPA thrombolytic program and the patient is brought back to the special suite for follow-up venography. Description of Procedure: Patient was brought to the special procedure suite. The left upper extremity sterilely prepped and draped in usual manner. Venogram via the existing catheter was performed. This demonstrated near complete thrombo-lysis. With the above findings noted TPA thrombolyzes was no longer thought to be of any benefit for the patient. The catheter and sheath were removed. Patient tolerated the procedure well and was taken to his room in satisfactory and stable condition. Total fluoroscopy time: 6 seconds. Total contrast volume: 10 ML's of Isovue 250.
[2020-09-17 12:26] LABS: Basophils % (A) 0 %; Eosinophils # (A) 0.4 k/uL (0-0.7); Eosinophils % (A) 6 %; HCT 44.7 % (39.0-53.0); HGB 15.1 gm/dL (13.0-17.5); Lymphocytes # (A) 1.9 k/uL (1.0-4.8); Lymphocytes % (A) 27 %; MCH 31.6 pg (25.0-35.0); MCHC 33.6 g/dL (31.0-37.0); MCV 93.9 fL (80.0-100.0); Monocytes # (A) 0.5 k/uL (0-1.0); Monocytes % (A) 7 %; Neutrophils # (A) 4.1 k/uL (1.3-7.7); Neutrophils % (A) 59 %; Platelet Count 207 k/uL (150-450); RBC 4.76 m/uL (4.30-5.90); RDW 13.4 % (11.5-15.5)
--- NOTE | 2020-09-17 14:34 | P.PN ---
Subjective This is a 60-year-old male with a past medical history significant for nonischemic cardiac myopathy with AICD placement, hyperlipidemia, hypertension, nicotine dependence, and former alcohol abuse. Patient follows in the office with Dr. Thomas. We have been asked to see the patient in consultation for QT prolongation. Patient underwent AICD in April 2020. Patient was was later found to have a DVT in the left upper extremity. He was hospitalized last month due to this and started on Eliquis for anticoagulation. Patient was supposed to have a follow-up appointment with his vascular surgeon on September 22. However, the patient states he had increasing pain and swelling to his left upper extremity and came to the hospital for further evaluation. The patient denies any chest pain or pressure. He denies shortness of breath. EKG reveals sinus mechanism. QTC on initial EKG 496. Repeat EKG reveals QTC of 515. Chest CTA: No evidence for pulmonary embolism. Most recent echocardiogram obtained on 08/15/2020 revealed ejection fraction of 50% and mild tricuspid regurgitation. Cardiac catheterization history: February 2020 revealing minor irregularities but no significant coronary artery disease. Likely nonischemic cardiomyopathy. Venous Doppler revealed obstructing thrombus within the subclavian and left axillary vein. 09/17/2020: Patient underwent thrombolytics with TPA yesterday with Dr. Hermosillo. Patient was transferred to the ICU after. Plan for patient to be taken today for possible angioplasty with Dr. Ross. Patient lying bed, no acute distress. Blood pressure 175, heart rate 63, afebrile, maintaining oxygen saturation is 96% on room air. Patient currently maintained on TPA drip, aspirin 81 mg daily, atorvastatin 40 mg daily, Lasix 20 mg twice a day, Toprol titrate 50 mg twice a day, and chest to 24 mg to 26 mg twice a day, spironolactone 12.5 mg daily. PHYSICAL EXAM: VITAL SIGNS: Reviewed. GENERAL: Well-developed in no acute distress. HEENT: Head is normocephalic. Pupils are equal, round. Sclerae anicteric. Mucous membranes of the mouth are moist. Neck supple. LUNGS: Respirations even and unlabored. Lungs essentially clear to auscultation bilaterally. HEART: Regular rate and rhythm. S1 and S2 heard. ABDOMEN: Soft. Nondistended. Nontender. EXTREMITIES: Normal range of motion. No clubbing or cyanosis. Peripheral pulses intact. No lower extremity edema. Swelling to left upper extremity with tenderness to light palpation. NEUROLOGIC: Awake and alert. Oriented x 3. ASSESSMENT: Left upper extremity DVT of subclavian and left axillary vein Nonischemic cardiomyopathy with history of AICD implantation, April 2020 Hyperlipidemia Hypertension COPD Former nicotine dependence Former alcohol abuse PLAN: No need to repeat echocardiogram as this was performed last month Resume home cardiac medications Avoid any QT prolonging medications Monitor electrolytes Vascular following, plan for possible angioplasty today with Dr. Ross No absolute contraindications from a cardiac standpoint to undergo vascular procedure today Plan for hematology to be consulted in regards to anticoagulation management. Further recommendations pending patient's course Nurse practitioner note has been reviewed by physician. Signing provider agrees with the documented findings, assessment, and plan of care. Objective - Vital Signs Vital signs: Vital Signs Temp 98.1 F 09/17/20 12:00 Pulse 73 09/17/20 14:00 Resp 21 09/17/20 14:00 BP 103/64 09/17/20 14:00 Pulse Ox 95 09/17/20 14:00 Intake & Output 09/16/20 09/17/20 09/17/20 18:59 06:59 18:59 Intake Total 349.799 891 750 Output Total 0 700 1650 Balance 349.799 191 -900 Weight 74.3 kg Intake: IV 200 300 150 0.9 NS 40 120 80 Alteplase 10 mg In Sodium 40 120 30 Chloride 0.9% 100 ml @ 1 MG/HR 10 mls/hr IV .Q10H [facility] Rx#:[id number] Heparin (to sheath) 20 60 15 Intake, IV Titration 149.799 Amount Heparin Sod,Pork in 0.45% 149.799 NaCl 25,000 unit In 0.45 % NaCl 1 250ml.bag @ 18 UNITS/KG/HR 11.839 mls/hr IV .Q21H7M [facility] Rx#: [id number] Oral 591 600 Output: Urine 0 700 1650 Other: Voiding Method Urinal Urinal Urinal - Labs CBC & Chem 7: 09/17/20 11:34 09/17/20 04:18 Labs: Abnormal Lab Results - Last 24 Hours (Table) 09/16/20 09/17/20 Range/Units 14:37 04:18 Sodium 136 L (137-145) mmol/L Glucose 118 H (74-99) mg/dL POC Glucose (mg/dL) 139 H (75-99) mg/dL Total Protein 6.0 L (6.3-8.2) g/dL Albumin 3.3 L (3.5-5.0) g/dL
--- NOTE | 2020-09-17 15:48 | P.CONS ---
<Arabella Higginbotham - Last Filed: 09/17/20 15:34> History of Present Illness - Reason for Consult Consult date: 09/17/20 propagated LUE DVT on eliquis Requesting physician: Kasandra Blood - Chief Complaint LUE pain and swelling - History of Present Illness Mr. Yap is a very pleasant 60-year-old male with severe cardiac disease. He had a pacemaker placed in May 2020. He was in the ER in early August 2 times with complaints of chest pain and syncope. He refused admission the first year visit because he had follow-up appointments the next day. He was back in the ER a few days later with same symptoms, he was diagnosed with covid 08/14/20. He reported persistent pain and swelling in the left upper extremity. Doppler revealed subclavian DVT, the axilla vein was somewhat involved but, compressible. Patient was placed on eliquis. Patient denies missing any doses of eliquis. He was taking it twice a day. Patient came to the hospital with progressive pain and swelling of the left upper extremity. Doppler of the left upper extremity revealed propagation of the left subclavian and left axillary thrombus, the left axillary vein was no longer compressible. The patient was seen by Vascular and had thrombolytics and thrombectomy performed. Patient states significant improvement in discomfort in the arm, the swelling is significantly improved. Patient denies any personal history of blood clots, no family history of blood clots or blood disorders, no personal history of cancer, hormonal treatment, chronic steroid use, recent injuries or unusual prolonged immobility. Patient had appendix surgery many years ago without complications. He denies any swelling of the lower extremities, pain, he has had CT of the chest 2, no pulmonary embolism. Review of Systems 14 point ROS is neg except as stated in HPI Past Medical History Past Medical History: COPD, Hyperlipidemia, Hypertension, Myocardial Infarction (AR), Osteoarthritis (OA) Additional Past Medical History / Comment(s): arthritis, "shakes", syncope, blood clot to lt arm. EF-20/25% Last Myocardial Infarction Date:: 02/25/20 History of Any Multi-Drug Resistant Organisms: None Reported Past Surgical History: AICD, Appendectomy, Heart Catheterization, Pacemaker Past Anesthesia/Blood Transfusion Reactions: No Reported Reaction Type of Cardiac Device: Permanent Pacemaker, AICD Device Placement Date:: 05/01/20 Past Psychological History: No Psychological Hx Reported Smoking Status: Former smoker Past Alcohol Use History: None Reported Additional Past Alcohol Use History / Comment(s): QUIT SMOKING 02/2020, patient says he hasn't drank alcohol since april 2020 Past Drug Use History: None Reported - Past Family History Mother Family Medical History: Cancer Additional Family Medical History / Comment(s): Cancer in jaw Father Family Medical History: COPD Medications and Allergies Home Medications Medication Instructions Recorded Confirmed Type Spironolactone [Aldactone] 12.5 mg PO DAILY 02/25/20 09/15/20 History Atorvastatin [Lipitor] 40 mg PO DAILY 90 Days #90 tab 02/29/20 09/15/20 Rx Cholecalciferol [Vitamin D3 (25 25 mcg PO DAILY 08/12/20 09/15/20 History Mcg = 1000 Iu)] Metoprolol Tartrate [Lopressor] 50 mg PO BID 08/14/20 09/15/20 History Sacubitril/Valsartan [Entresto 24 1 tab PO BID 08/14/20 09/15/20 History mg-26 mg Tablet] Ascorbic Acid [Vitamin C] 1,000 mg PO DAILY tab 08/18/20 09/15/20 Rx Furosemide [Lasix] 20 mg PO BID@0900,1600 30 Days #60 08/18/20 09/15/20 Rx tab Aspirin EC [Ecotrin Low Dose] 81 mg PO DAILY 09/15/20 09/15/20 History Enoxaparin [Lovenox] 80 mg SQ Q12H #60 syringe 09/17/20 Rx Enoxaparin [Lovenox] 80 mg SQ Q12HR 30 Days #60 syringe 09/18/20 Rx Pantoprazole [Protonix] 40 mg PO BID 30 Days #60 tablet. 09/18/20 Rx Allergies Allergy/AdvReac Type Severity Reaction Status Date / Time No Known Allergies Allergy Verified 09/15/20 09:28 Physical Exam Vitals: Vital Signs Temp Pulse Resp BP Pulse Ox 09/17/20 13:00 65 18 111/76 93 L 09/17/20 12:30 66 19 111/76 92 L 09/17/20 12:00 98.1 F 56 L 16 109/68 96 09/17/20 11:30 59 L 19 109/68 92 L 09/17/20 11:00 63 20 113/78 95 09/17/20 10:30 68 15 113/78 95 09/17/20 10:00 62 19 110/79 95 09/17/20 09:00 66 18 102/75 94 L 09/17/20 08:30 69 29 H 110/79 93 L 09/17/20 08:00 98.5 F 70 17 112/75 96 09/17/20 07:30 63 19 112/75 94 L 09/17/20 07:00 57 L 13 107/63 95 09/17/20 06:30 61 17 96 09/17/20 06:00 68 19 93/73 96 09/17/20 05:30 61 19 95 09/17/20 05:00 59 L 18 99/73 95 09/17/20 04:30 61 19 99/73 95 09/17/20 04:00 98 F 62 19 107/73 94 L 09/17/20 03:30 62 19 107/73 94 L 09/17/20 03:00 69 20 110/73 93 L 09/17/20 02:30 63 19 110/73 93 L 09/17/20 02:00 62 19 100/69 94 L 09/17/20 01:30 62 20 100/69 94 L 09/17/20 01:00 73 18 104/65 95 09/17/20 00:30 62 18 104/65 94 L 09/17/20 00:00 98.6 F 73 17 119/89 94 L 09/16/20 23:39 73 18 130/26 94 L 09/16/20 23:30 68 19 105/62 93 L 09/16/20 23:00 65 17 103/72 93 L 09/16/20 22:30 66 20 104/73 93 L 09/16/20 22:00 66 18 113/73 95 09/16/20 21:30 80 38 H 99/66 94 L 09/16/20 21:00 68 19 98/70 94 L 09/16/20 20:30 73 17 101/72 94 L 09/16/20 20:00 98.1 F 64 17 99/64 95 09/16/20 19:30 70 13 103/60 93 L 09/16/20 19:00 67 19 108/65 94 L 09/16/20 18:30 74 24 86/69 95 09/16/20 18:00 63 16 101/69 94 L 09/16/20 17:30 70 19 107/74 94 L 09/16/20 17:00 72 23 100/71 95 09/16/20 16:30 70 13 86/60 95 09/16/20 16:00 55 L 14 100/65 95 09/16/20 15:31 97.4 F L 63 18 100/65 95 Intake and Output 09/16/20 09/17/20 09/17/20 22:59 06:59 14:59 Intake Total 791 200 540 Output Total 005 243 8614 Balance 491 -200 -660 Intake: IV 200 200 140 0.9 NS 80 80 70 Alteplase 10 mg In Sodium 80 80 30 Chloride 0.9% 100 ml @ 1 MG/HR 10 mls/hr IV .Q10H ONE Rx#:[id number] Heparin (to sheath) 40 40 15 Intake, IV Titration 0 Amount Heparin Sod,Pork in 0.45% 0 NaCl 25,000 unit In 0.45 % NaCl 1 250ml.bag @ 18 UNITS/KG/HR 11.839 mls/hr IV .Q21H7M [facility] Rx#: [id number] Oral 591 400 Output: Urine 912 948 5731 Other: Voiding Method Urinal Urinal Urinal Weight 74.3 kg - Constitutional General appearance: average body habitus, cooperative, no acute distress - EENT Eyes: anicteric sclerae, edentulous, EOMI ENT: hearing grossly normal, normal oropharynx - Neck Neck: no lymphadenopathy - Respiratory Respiratory: bilateral: CTA - Cardiovascular Rhythm: regular Heart sounds: normal: S1, S2 Abnormal Heart Sounds: no systolic murmur, no diastolic murmur, no rub, no S3 Gallop, no S4 Gallop, no click, no other - Gastrointestinal General gastrointestinal: no absent bowel sounds, no decreased bowel sounds, no distended, no hepatomegaly, no hyperactive bowel sounds, normal bowel sounds, no organomegaly, no rigid, no scaphoid, soft, no splenomegaly, no tenderness, no umbilical hernia, no ventral hernia - Integumentary Integumentary: normal, normal turgor - Neurologic Neurologic: CNII-XII intact - Musculoskeletal Musculoskeletal: strength equal bilaterally - Psychiatric Psychiatric: A&O x's 3, appropriate affect, intact judgment & insight Venous congestion noted LUE, lt chest wall pacemaker visible, mild swelling of the LUE Results CBC & Chem 7: 09/17/20 11:34 09/17/20 04:18 Labs: Abnormal Lab Results - Last 24 Hours (Table) 09/16/20 09/17/20 Range/Units 14:37 04:18 Sodium 136 L (137-145) mmol/L Glucose 118 H (74-99) mg/dL POC Glucose (mg/dL) 139 H (75-99) mg/dL Total Protein 6.0 L (6.3-8.2) g/dL Albumin 3.3 L (3.5-5.0) g/dL CT scan - chest: report reviewed Venous US: report reviewed (reviewed LUE doppler reports from 08/15/20 and 09/16/20) Assessment and Plan (1) Propagating thrombus Status: Acute Priority: High Code(s): I82.91 - CHRONIC EMBOLISM AND THROMBOSIS OF UNSPECIFIED VEIN SNOMED Code(s): 115468079 (2) Abnormal finding on CT scan Narrative/Plan: Patient has been seen by gastroenterology with plans for outpatient follow-up and possibly endoscopy for the esophageal thickening found on CAT scan. Status: Acute Priority: High Code(s): R93.89 - ABNORMAL FINDINGS ON DX IMAGING OF OTH BODY STRUCTURES SNOMED Code(s): 028256987 (3) Deep vein thrombosis (DVT) of upper extremity Status: Acute Priority: High Code(s): I82.629 - ACUTE EMBOLISM AND THROMBOSIS OF DEEP VN UNSP UP EXTREM SNOMED Code(s): 521200396 (4) History of implantable cardioverter-defibrillator (ICD) insertion Status: Acute Priority: High Code(s): Z95.810 - PRESENCE OF AUTOMATIC (IMPLANTABLE) CARDIAC DEFIBRILLATOR SNOMED Code(s): 337267571 Plan: Case reviewed with Dr. Batres. Patient did fine in the interim after having his pacemaker placed. He was complaining of arm swelling in the time surrounding his Covid diagnosis. He was found to have blood clot, treated with DOAC. The clot propagated and has now had thrombolytics and thrombectomy. Recommendation is for Lovenox treatment, twice a day dosing. Antiphospholipid antibodies have been ordered. If positive, Lovenox is the choice of anticoagulation as DOAC do not have indication in clots induced by phospholipid antibody 2/2 covid infection. In this case, patient could be reevaluated at the end of 3-6 months of therapy for possible discontinuation. Lovenox will be the anticoagulation choice in this case. If negative, then it would have to be assumed that the clot was provoked by pacemaker. The pacemaker is permanent so, patient would require lifelong anticoagulation. May be able to consider a different route of anticoagulation if that is the case. Time with Patient: Greater than 30 <Wilson Batres - Last Filed: 09/20/20 11:09> Results CBC & Chem 7: 09/18/20 04:53 09/17/20 04:18 Assessment and Plan Plan: Clarification - Lovenox while APL status unknown. If positive , can transition to warfarin. If negative ok to switch to DOAC
[2020-09-17] MEDS: ENOXAPARIN 80 MG/0.8 ML SYRINGE SQ SCH (20:54)
[2020-09-17 21:38] LABS: Cardiolipin Ab IgG Interp NEGATIVE (NEGATIVE); Cardiolipin Ab IgM Interp NEGATIVE (NEGATIVE); Cardiolipin IgA Antibody <2.0 U/mL; Cardiolipin IgM Antibody <1.5 U/mL
--- NOTE | 2020-09-17 23:59 | PN ---
PROGRESS NOTE Remains on Lovenox 80 mg sub Q.12 hours and treatment for systolic CHF. Waiting for antiphospholipid results. Will probably go home on Lovenox until we can determine whether to switch, if he is able to switch to a different anticoagulant besides Eliquis depending on his insurance and depending on if we think the DVT was caused from the pacemaker or antiphospholipid syndrome. I recommend also he had the EGD, which we are waiting on with a GI consult. He was given during surgery and clot removal was taken by vascular surgeon. Vital signs stable. Afebrile. Cardiovascular S1, S2. Psych: Fair mood and affect. He has decreased swelling in his left arm. He is probably wanting to go home tomorrow. Probably have to go home on a Lovenox bridge until we can determine what anticoagulant to give him. ASSESSMENT: 1. Status post deep vein thrombosis. 2. Acute arterial occlusion of left upper arm, status post surgical procedure on Lovenox bridge. 3. Systolic congestive heart failure. 4. Permanent pacemaker. Wait for antiphospholipid report with possible send home on Lovenox tomorrow. Follow up as an outpatient. MMODL / IJN: [id number] /
[2020-09-18 00:34] LABS: Beta 2 Microglobulin 1.75 mg/L (0.61-2.37)
[2020-09-18 05:40] LABS: HCT 43.1 % (39.0-53.0); HGB 14.5 gm/dL (13.0-17.5); MCH 31.6 pg (25.0-35.0); MCHC 33.6 g/dL (31.0-37.0); Mean Platelet Volume 7.5; Platelet Count 225 k/uL (150-450); RBC 4.58 m/uL (4.30-5.90); RDW 13.4 % (11.5-15.5); WBC 7.9 k/uL (3.8-10.6)
[2020-09-18 07:38] VITALS: TEMP 98.1
[2020-09-18] MEDS: SPIRONOLACTONE 25 MG TAB PO SCH (07:58)
[2020-09-18] MEDS: ASCORBIC ACID 500 MG TAB PO SCH (07:58)
[2020-09-18] MEDS: METOPROLOL TARTRATE 50 MG TAB PO SCH (07:58)
[2020-09-18] MEDS: FUROSEMIDE 20 MG TAB PO SCH (07:58)
[2020-09-18] MEDS: SACUBITRIL/VALSARTAN 24 MG-26 MG TABLET PO SCH (07:59)
[2020-09-18] MEDS: CHOLECALCIFEROL 25 MCG (1000 IU) TABLET PO SCH (07:59)
[2020-09-18] MEDS: ENOXAPARIN 80 MG/0.8 ML SYRINGE SQ SCH (07:59)
[2020-09-18] MEDS: ATORVASTATIN 40 MG TAB PO SCH (07:59)
[2020-09-18] MEDS: ASPIRIN 81 MG PO SCH (07:59)
[2020-09-18] MEDS ORDERED: PANTOPRAZOLE 40 MG TABLET PO SCH (09:00)
--- NOTE | 2020-09-18 11:28 | PN ---
PROGRESS NOTE HISTORY: Phil is a 60-year-old gentleman with recent pacemaker and left subclavian line thrombosis of his back. The patient was initially treated with Eliquis. Subsequently had redeveloped left upper extremity swelling. He was brought in electively for thrombectomy. They were unsuccessful with it. Went on to receive thrombolytic and the thrombus had resolved. EXAM: Comfortable at rest. Vital signs are stable. There is no jugular venous distention. Chest exam reveals good air entry bilaterally. Heart exam reveals first and second heart sounds. No gallop. Abdomen is soft. Exam of extremities did not reveal any edema. Left upper extremity shows swelling, but that has improved. LABORATORY DATA: Labs show a hemoglobin of 13.5, platelet count is 225, creatinine is 0.8. ASSESSMENT: Left upper extremity deep vein thrombosis following pacemaker placement. PLAN: The patient is doing well. Stable for discharge. He will be discharged home on Lovenox and we will see his cra on Monday and will be started on aspirin 325 b.i.d. and Eliquis and Xarelto. MMODL / IJN: [id number] /
[2020-09-18 12:55] VITALS: BP 117/70; PULSE 63; RESP 16
--- NOTE | 2020-09-18 13:47 | P.PN ---
Subjective Progress Note Date: 09/18/20 Principal diagnosis: left subclavian and axillary DVT She was seen and examined sitting up in chair in the ICU. Patient has been downgraded to medical floor, however no rooms available. He is status post TPA thrombolysis of the left upper extremity thrombosis of the left subclavian vein, yesterday he underwent a venogram which demonstrated near complete thrombolysis. TPA was discontinued and sheath was removed. Patient states his left arm pain is greatly improved, swelling is improved. He denies any shortness of breath or chest pain. He is able to freely move his left upper extremity including hand and fingers. No acute changes through the night. Hematology was consult and for recommendations for anticoagulation, the recommendation being Lovenox 80 mg twice a day. Objective - Vital Signs Vital signs: Vital Signs Temp 98.1 F 09/18/20 07:37 Pulse 75 09/18/20 07:37 Resp 15 09/18/20 07:37 BP 97/68 09/18/20 07:37 Pulse Ox 98 09/18/20 07:37 Intake & Output 09/17/20 09/18/20 09/18/20 18:59 06:59 18:59 Intake Total 860 0 Output Total 1950 670 Balance -1090 -670 Weight 72.2 kg Intake: IV 160 0.9 NS 90 Alteplase 10 mg In Sodium 30 Chloride 0.9% 100 ml @ 1 MG/HR 10 mls/hr IV .Q10H ONE Rx#:[id number] Heparin (to sheath) 15 Oral 700 0 Output: Urine 1950 670 Other: Voiding Method Urinal Urinal # Voids 1 - Exam General appearance: The patient is alert, oriented, appears in no acute distress. HET: Head is normocephalic and atraumatic. Neck: Supple without lymphadenopathy. Trachea midline. Heart: S1 S2. Regular rate and rhythm. Lungs: Clear to auscultation. Abdomen: Soft, nontender, nondistended.. Extremities: Normal skin color and turgor. Bilateral +2 radial pulses. Left upper extremity with decreased swelling, full range of motion. Neurological: No focal deficits. Strength and sensation are grossly intact. - Labs CBC & Chem 7: 09/18/20 04:53 09/17/20 04:18 Assessment and Plan Assessment: 1. Status post TPA thrombolysis left subclavian vein and venogram 2. Left upper extremity subclavian and axillary deep vein thrombosis 3. Strength of COPD 4. History of hyperlipidemia 5. History of hypertension 6. Coronary artery disease, pacemaker 05/01/2020 (1) Abnormal finding on CT scan Current Visit: Yes Status: Acute Priority: High Code(s): R93.89 - ABNORMAL FINDINGS ON DX IMAGING OF OTH BODY STRUCTURES SNOMED Code(s): 267369161 (2) Deep vein thrombosis (DVT) of upper extremity Current Visit: Yes Status: Acute Priority: High Code(s): I82.629 - ACUTE EMBOLISM AND THROMBOSIS OF DEEP VN UNSP UP EXTREM SNOMED Code(s): 646081920 (3) COPD (chronic obstructive pulmonary disease) Current Visit: No Status: Acute Code(s): J44.9 - CHRONIC OBSTRUCTIVE PULMONARY DISEASE, UNSPECIFIED SNOMED Code(s): 48440518 (4) History of implantable cardioverter-defibrillator (ICD) insertion Current Visit: No Status: Acute Priority: High Code(s): Z95.810 - PRESENCE OF AUTOMATIC (IMPLANTABLE) CARDIAC DEFIBRILLATOR SNOMED Code(s): 039923313 Plan: 1. Continue symptomatic and supportive care 2. Patient is status post TPA thrombolysis and venogram of left upper extremity 3. Hematology was consult for recommendation on anticoagulation therapy 4. Patient currently on Lovenox 80 mg twice a day, will continue follow-up with hematology outpatient 5. Compression stocking to left upper extremity, prescription given to patient for left upper extremity compression sleeve 6. Patient may be discharged home once otherwise medically stable from a vascular surgical standpoint with putpatient followup The impression and plan of care has been dictated as directed. Dr. Ross I performed a history and examination of this patient, discussed the same with the dictator. I agree with the dictator's note ,documented as a scribe. Any additional findings or plans will be noted.
--- NOTE | 2020-09-18 17:44 | P.PN ---
Objective - Vital Signs Vital signs: Vital Signs Temp 98.1 F 09/18/20 12:00 Pulse 63 09/18/20 12:00 Resp 16 09/18/20 12:00 BP 117/70 09/18/20 12:00 Pulse Ox 96 09/18/20 12:00 Intake & Output 09/17/20 09/18/20 09/18/20 18:59 06:59 18:59 Intake Total 860 0 Output Total 1950 670 Balance -1090 -670 Weight 72.2 kg Intake: IV 160 0.9 NS 90 Alteplase 10 mg In Sodium 30 Chloride 0.9% 100 ml @ 1 MG/HR 10 mls/hr IV .Q10H ONE Rx#:[id number] Heparin (to sheath) 15 Oral 700 0 Output: Urine 1950 670 Other: Voiding Method Urinal Urinal # Voids 1 - Exam - Constitutional General appearance: average body habitus, cooperative, no acute distress - EENT Eyes: anicteric sclerae, edentulous, EOMI ENT: hearing grossly normal, normal oropharynx - Neck Neck: no lymphadenopathy - Respiratory Respiratory: bilateral: CTA - Cardiovascular Rhythm: regular Heart sounds: normal: S1, S2 Abnormal Heart Sounds: no systolic murmur, no diastolic murmur, no rub, no S3 Gallop, no S4 Gallop, no click, no other - Gastrointestinal General gastrointestinal: no absent bowel sounds, no decreased bowel sounds, no distended, no hepatomegaly, no hyperactive bowel sounds, normal bowel sounds, no organomegaly, no rigid, no scaphoid, soft, no splenomegaly, no tenderness, no umbilical hernia, no ventral hernia - Integumentary Integumentary: normal, normal turgor - Neurologic Neurologic: CNII-XII intact - Musculoskeletal Musculoskeletal: strength equal bilaterally - Psychiatric Psychiatric: A&O x's 3, appropriate affect, intact judgment & insight Venous congestion noted LUE, lt chest wall pacemaker visible, mild swelling of the LUE - Labs CBC & Chem 7: 09/18/20 04:53 09/17/20 04:18 Assessment and Plan Plan: CT scan - chest: report reviewed Venous US: report reviewed (reviewed LUE doppler reports from 08/15/20 and 09/16/20) Assessment and Plan (1) Propagating thrombus Current Visit: Yes Status: Acute Priority: High Code(s): I82.91 - CHRONIC EMBOLISM AND THROMBOSIS OF UNSPECIFIED VEIN SNOMED Code(s): 036677263 (2) Abnormal finding on CT scan Narrative/Plan: Patient has been seen by gastroenterology with plans for outpatient follow-up and possibly endoscopy for the esophageal thickening found on CAT scan. Current Visit: Yes Status: Acute Priority: High Code(s): R93.89 - ABNORMAL FINDINGS ON DX IMAGING OF OTH BODY STRUCTURES SNOMED Code(s): 706114847 (3) Deep vein thrombosis (DVT) of upper extremity Current Visit: Yes Status: Acute Priority: High Code(s): I82.629 - ACUTE EMBOLISM AND THROMBOSIS OF DEEP VN UNSP UP EXTREM SNOMED Code(s): 923461833 (4) History of implantable cardioverter-defibrillator (ICD) insertion Current Visit: No Status: Acute Priority: High Code(s): Z95.810 - PRESENCE OF AUTOMATIC (IMPLANTABLE) CARDIAC DEFIBRILLATOR SNOMED Code(s): 684511030 Plan: Case reviewed with Dr. Batres. Patient did fine in the interim after having his pacemaker placed. He was complaining of arm swelling in the time surrounding his Covid diagnosis. He was found to have blood clot, treated with DOAC. The clot propagated and has now had thrombolytics and thrombectomy. Recommendation is for Lovenox treatment, twice a day dosing. If Antiphospholipid antibodies and glycoprotein are positive patient can be bridged to warfarin, if negative may continue on pradaxa as outpatient - Plan to follow-up with dr. Batres in 2 weeks Antiphospholipid antibodies have been ordered. If positive, Lovenox is the choice of anticoagulation as DOAC do not have indication in clots induced by phospholipid antibody 2/2 covid infection. Physician attest: I have completed the full history and physical and agree with above dictation, dictated as a ascribe
== END 2020-09-18 15:36 | disposition home or self-care (01) | DRG 300 ==
LOC: EC 07:07 → 3SCARD 09:43 → 2SICU 09-16 14:17
PROVIDERS: ADMIT Family Medicine; ATTEND Family Medicine
PROC: B51N1ZZ Fluoroscopy of Left Upper Extremity Veins using Low Osmolar Contrast (ICD-10-PCS; principal; 2020-09-16 09:00)
PROC: B5181ZZ Fluoroscopy of Superior Vena Cava using Low Osmolar Contrast (ICD-10-PCS; 2020-09-16 09:00)
PROC: 3E04317 Introduction of Other Thrombolytic into Central Vein, Percutaneous Approach (ICD-10-PCS; 2020-09-16 09:00)
PROC: B51N1ZZ Fluoroscopy of Left Upper Extremity Veins using Low Osmolar Contrast (ICD-10-PCS; 2020-09-17)
DX: I82.B12 Acute embolism and thrombosis of left subclavian vein (principal); I50.22 Chronic systolic (congestive) heart failure; I42.8 Other cardiomyopathies; I82.622 Acute embolism and thrombosis of deep veins of left upper extremity; J44.9 Chronic obstructive pulmonary disease, unspecified; E78.5 Hyperlipidemia, unspecified; I25.2 Old myocardial infarction; Z79.01 Long term (current) use of anticoagulants; Z86.718 Personal history of other venous thrombosis and embolism; Z95.810 Presence of automatic (implantable) cardiac defibrillator; Z79.82 Long term (current) use of aspirin; M19.90 Unspecified osteoarthritis, unspecified site; Z87.891 Personal history of nicotine dependence; Z20.822 Contact with and (suspected) exposure to COVID-19; F10.10 Alcohol abuse, uncomplicated; Z82.5 Family history of asthma and other chronic lower respiratory diseases; I11.0 Hypertensive heart disease with heart failure; Z80.8 Family history of malignant neoplasm of other organs or systems; I25.10 Atherosclerotic heart disease of native coronary artery without angina pectoris; Z86.16 Personal history of COVID-19
CPT/HCPCS: 36415; 37212; 37214; 71275; 75820; 76937; 80053; 82232; 83735; 83880; 84484; 85025; 85027; 85384; 85610; 85730; 86146; 86147; 87635; 93005; 99285

== ENCOUNTER 2020-10-26 09:35 | Observation (INO) | payer OTHER ==
[2020-10-26] MEDS ORDERED: NITROGLYCERIN SL TABS 0.4 MG TAB SUBLINGUAL STA (09:54)
[2020-10-26] MEDS ORDERED: ASPIRIN 81 MG PO STA (09:54)
--- NOTE | 2020-10-26 10:05 | ED ---
Chest Pain HPI - General Chief Complaint: Chest Pain Stated Complaint: syncope Time Seen by Provider: 10/26/20 09:44 Source: patient Mode of arrival: ambulatory Limitations: no limitations - History of Present Illness Initial Comments: Patient is a 60-year-old male with history of COPD, heart disease, blood clots, presenting to the emergency Department with complaints of a few days of syncopal events and chest pain that started last night. He states he's had syncopal events in the past, he had a pacemaker placed in April and has been better until last few days. He's had approximately 3-4 syncopal events over the past few days. He states sometimes they happen if he bends over or sometimes she could be just sitting at the table, feels sweaty and knows it's coming. Yesterday evening he started feeling chest pressure and discomfort and has continued throughout today associated come in to be evaluated. He was supposed to have a colonoscopy this morning but did not feel well enough to go through with it. He does admit to some mild shortness of breath as well. No radiation of the pain. Currently rates as 10/17. He does have recent history of blood clots in his left arm, he is on Plavix twice daily, he did not take it today as he was supposed to have a colonoscopy. Denies any nausea or vomiting, no abdominal pain. He has no further complaints at this time. Upon arrival to the ER, his vitals are stable. - Related Data Home Medications Medication Instructions Recorded Confirmed Spironolactone [Aldactone] 12.5 mg PO DAILY 02/25/20 10/22/20 Cholecalciferol [Vitamin D3 (25 25 mcg PO DAILY 08/12/20 10/22/20 Mcg = 1000 Iu)] Metoprolol Tartrate [Lopressor] 50 mg PO BID 08/14/20 10/22/20 Sacubitril/Valsartan [Entresto 24 1 tab PO BID 08/14/20 10/22/20 mg-26 mg Tablet] Aspirin EC [Ecotrin Low Dose] 81 mg PO DAILY 09/15/20 10/22/20 Furosemide [Lasix] 20 mg PO DAILY 10/22/20 10/22/20 Vitamin B Complex 1 each PO DAILY 10/22/20 10/22/20 Previous Rx's Medication Instructions Recorded Atorvastatin [Lipitor] 40 mg PO DAILY 90 Days #90 tab 02/29/20 Enoxaparin [Lovenox] 80 mg SQ Q12HR 30 Days #60 syringe 09/18/20 Pantoprazole [Protonix] 40 mg PO BID 30 Days #60 tablet. 09/18/20 Allergies Allergy/AdvReac Type Severity Reaction Status Date / Time No Known Allergies Allergy Verified 10/26/20 09:39 Review of Systems ROS Statement: Those systems with pertinent positive or pertinent negative responses have been documented in the HPI. ROS Other: All systems not noted in ROS Statement are negative. EKG Findings - EKG Comments: EKG Findings:: Normal sinus rhythm, T-wave abnormality, consider inferior ischemia. No ST segment elevation. This is similar to his previous on 09/15/2020. Ventricular rate 91, UT interval 144, QT 358. Past Medical History Past Medical History: COPD, Hyperlipidemia, Hypertension, Myocardial Infarction ([place]), Osteoarthritis (OA) Additional Past Medical History / Comment(s): arthritis, "shakes", syncope, blood clot to lt arm. EF-20/25% Last Myocardial Infarction Date:: 02/25/20 History of Any Multi-Drug Resistant Organisms: None Reported Past Surgical History: AICD, Appendectomy, Heart Catheterization, Pacemaker Past Anesthesia/Blood Transfusion Reactions: No Reported Reaction Type of Cardiac Device: Permanent Pacemaker, AICD Device Placement Date:: 05/01/20 Past Psychological History: No Psychological Hx Reported Smoking Status: Former smoker Additional Past Alcohol Use History / Comment(s): QUIT SMOKING 02/2020, patient says he hasn't drank alcohol since april 2020 - Past Family History Mother Family Medical History: Cancer Additional Family Medical History / Comment(s): Cancer in jaw Father Family Medical History: COPD General Exam - General Exam Comments Initial Comments: GENERAL: Patient is well-developed and well-nourished. Patient is nontoxic and in no acute distress. HEAD: Atraumatic, normocephalic. EYES: Pupils equal round and reactive to light, extraocular movements intact, sclera anicteric, conjunctiva are normal. Eyelids were unremarkable. ENT: TMs normal, nares patent, oropharynx clear without exudates. Moist mucous membranes. NECK: Normal range of motion, supple without lymphadenopathy or JVD. LUNGS: Unlabored respirations. Breath sounds clear to auscultation bilaterally and equal. No wheezes rales or rhonchi. HEART: Regular rate and rhythm without murmurs, rubs or gallops. ABDOMEN: Soft, nontender, normoactive bowel sounds. No guarding, no rebound. No masses appreciated. : Deferred MUSCULOSKELETAL: Normal extremities with adequate strength and normal range of motion, no pitting or edema. No clubbing or cyanosis. NEUROLOGICAL: Patient is alert and oriented x 3. Motor and sensory are also intact. Cranial nerves II through XII grossly intact. Symmetrical smile. Normal speech, normal gait. PSYCH: Normal mood, normal affect. SKIN: Warm, Dry, normal turgor, no rashes or lesions noted. Limitations: no limitations Course Vital Signs 10/26/20 09:36 Temperature 97.6 F Pulse Rate 96 Respiratory 18 Rate Blood Pressure 123/78 O2 Sat by Pulse 100 Oximetry Chest Pain [facility] Patient is a 60-year-old male with history of COPD, heart disease, presenting with a few days of syncopal events as well as chest pain that started last night. His vitals stable upon arrival, EKG showing normal sinus rhythm, no acute ST segment elevation. Labs are showing a normal white count, normal troponin, BNP is 1600. His x-ray shows no acute process. Patient will be admitted for cardiac consult given his chest pain and multiple syncopal events. Patient accepted by Dr. Burgos. Case discussed with Dr. Bose. Disposition Clinical Impression: Syncope, Chest pain Disposition: ADMITTED IP TO THIS [facility] Condition: Stable Referrals: Felix Burgos MD [Primary Care Provider] - 1-2 days Decision Date: 10/26/20 Decision Time: 11:21
[2020-10-26 10:30] LABS: Basophils # (A) 0.1 k/uL (0-0.2); Basophils % (A) 1 %; Eosinophils # (A) 0.4 k/uL (0-0.7); Eosinophils % (A) 8 %; HCT 39.5 % (39.0-53.0); HGB 13.5 gm/dL (13.0-17.5); Lymphocytes % (A) 35 %; MCH 32.1 pg (25.0-35.0); MCHC 34.3 g/dL (31.0-37.0); MCV 93.6 fL (80.0-100.0); Mean Platelet Volume 7.6; Monocytes # (A) 0.4 k/uL (0-1.0); Monocytes % (A) 7 %; Neutrophils # (A) 2.8 k/uL (1.3-7.7); Neutrophils % (A) 48 %; Platelet Count 251 k/uL (150-450); RBC 4.22 m/uL (4.30-5.90); RDW 13.6 % (11.5-15.5); WBC 5.8 k/uL (3.8-10.6)
[2020-10-26 10:40] LABS: ALT 15 U/L (4-49); AST 20 U/L (17-59); African American GFR (CKD) >90 (>60 ml/min/1.73 sqM); Albumin 3.9 g/dL (3.5-5.0); Alkaline Phosphatase 77 U/L (38-126); Anion Gap 7 mmol/L; Blood Urea Nitrogen 16 mg/dL (9-20); Calcium 9.8 mg/dL (8.4-10.2); Carbon Dioxide 24 mmol/L (22-30); Chloride 108 mmol/L (98-107); Glucose 127 mg/dL (74-99); INR 0.9 (<1.2); Magnesium 1.8 mg/dL (1.6-2.3); Non-African American GFR(CKD) >90 (>60 ml/min/1.73 sqM); Partial Thromboplastin Time 25.2 sec (22.0-30.0); Potassium 4.1 mmol/L (3.5-5.1); Prothrombin Time 10.2 sec (9.0-12.0); Sodium 139 mmol/L (137-145); Total Bilirubin 0.3 mg/dL (0.2-1.3); Total Protein 6.5 g/dL (6.3-8.2)
--- NOTE | 2020-10-26 11:02 | XR ---
EXAMINATION TYPE: XR chest 2V DATE OF EXAM: 10/26/2020 COMPARISON: Chest x-ray dated 08/14/2020 HISTORY: Chest pain TECHNIQUE: Frontal and lateral views of the chest are obtained. FINDINGS: Intracardiac defibrillator lead is stable. Generator remains in left pectoral region. Ther e is no evident airspace disease, pneumothorax, or pleural effusion. Cardiac mediastinal silhouette i s stable. Aorta is dense. There are overlying leads. There is a stable appearance to the bones. The osseous structures are intact. IMPRESSION: No acute cardiopulmonary process.
[2020-10-26] MEDS ORDERED: NITROGLYCERIN SL TABS 0.4 MG TAB SUBLINGUAL PRN (11:17)
[2020-10-26] MEDS ORDERED: MORPHINE SULFATE 4 MG/ML SYRINGE IVP STA (11:31)
[2020-10-26] MEDS ORDERED: SODIUM CHLORIDE 0.9% 1,000 ML IV SCH (21:15)
[2020-10-26] MEDS ORDERED: MORPHINE SULFATE 2 MG/ML SYRINGE IVP PRN (22:13)
[2020-10-26] MEDS: METOPROLOL TARTRATE 50 MG TAB PO SCH (23:53)
[2020-10-26] MEDS: ATORVASTATIN 40 MG TAB PO SCH (23:53)
[2020-10-27] MEDS: SACUBITRIL/VALSARTAN 24 MG-26 MG TABLET PO SCH ×3 (00:01→22:44)
--- NOTE | 2020-10-27 06:31 | HP ---
HISTORY AND PHYSICAL 60-year-old white male with a history of COPD, heart disease, blood clots, came in with syncopal event episodes and chest pain, syncopal episodes, pacemaker 3-4 syncopal episodes over the past few days. ( ) knows it is coming. He is having some atypical chest pain, possibly some dehydration. He has had blood clots in his left arm. He is currently on Plavix 75 daily. Does have colonoscopy today, but did not take the prep. Denies any nausea, vomiting. MEDICATIONS: Home medicines spironolactone 12.5 daily vitamin D3 225 mcg daily, Lopressor 50 b.i.d., aspirin 81 mg daily, Lasix 20 daily, Entresto 24/ b.i.d. ALLERGIES: No known drug allergies. EKG: EKG sinus rhythm. T-wave abnormalities. REVIEW OF SYSTEMS: A 14-point review of systems otherwise negative. PAST MEDICAL HISTORY: COPD, hypertension, dyslipidemia, myocardial infarction, osteoarthritis. PAST SURGICAL HISTORY: AICD, appendectomy, heart catheterization, permanent pacemaker. FAMILY HISTORY: Mother with cancer of the jaw. Father with COPD. PHYSICAL EXAM: Male is well developed, well nourished, nontoxic. Temperature 97.6, heart rate is 96, respiratory 18, blood pressure is 123/78. HEAD: Normocephalic, atraumatic. CARDIOVASCULAR: S1, S2. LUNGS: Clear. GI: Soft. HEMATOLOGY: Negative Homans. PSYCH: Poor mood and affect. INTEGUMENTARY: Dry skin turgor, poor mucous membranes. ABDOMEN: Soft, nontender. LABS: BNP 1600. ASSESSMENT: Syncope, chest pain, possible orthostatic hypotension. Rehydrate. Cardiology consult. Normal saline at 75 cc an hour overnight. Prognosis guarded. MMODL / IJN: [id number] /
[2020-10-27] MEDS: ATORVASTATIN 40 MG TAB PO SCH (07:38)
[2020-10-27] MEDS: PANTOPRAZOLE 40 MG TABLET PO SCH ×2 (07:38→22:43)
[2020-10-27] MEDS: ASPIRIN 81 MG PO SCH (07:39)
[2020-10-27] MEDS: SPIRONOLACTONE 25 MG TAB PO SCH (07:39)
[2020-10-27] MEDS: METOPROLOL TARTRATE 50 MG TAB PO SCH ×2 (07:39→22:48)
[2020-10-27] MEDS: FUROSEMIDE 20 MG TAB PO SCH (07:39)
[2020-10-27] MEDS: CHOLECALCIFEROL 25 MCG (1000 IU) TABLET PO SCH (07:39)
[2020-10-27] MEDS: FOLIC ACID-VIT B COMPLEX-VIT C 1 CAP PO SCH (07:40)
[2020-10-27] MEDS: ENOXAPARIN 80 MG/0.8 ML SYRINGE SQ SCH ×2 (07:40→22:44)
[2020-10-27] MEDS ORDERED: ASPIRIN 325 MG TAB PO SCH (09:00)
[2020-10-27 09:41] VITALS: BMI 24.9
--- NOTE | 2020-10-27 10:24 | P.CRDCN ---
History of Present Illness History of present illness: HISTORY OF PRESENTING ILLNESS This is a pleasant 60-year-old male past medical history significant for nonischemic cardiomyopathy status post AICD, hypertension, chronic systolic heart failure, hypertension, dyslipidemia, chronic nicotine dependence and former alcohol abuse. He follows in the office with Dr Thomas. We have been asked to see in consultation for syncope. He presented to the hospital and states that since Monday he has passed out 6 times. He cannot think of any specific precipitating factors. He states it happens at all times of the day while he is sitting or standing he initially becomes diaphoretic and then lightheaded and then he wakes up on the floor. He denies having any chest pain or shortness of breath. He does not believe he is receiving any shocks from his defibrillator. Device interrogation is unremarkable. He hasn't no evidence of VT, VF, SVT or atrial fibrillation. Telemetry tracings left 5 throughout this admission have been unremarkable. 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 EKG on arrival reveals sinus mechanism with T-wave inversions noted in the inferior leads, consistent with previous EKGs. No acute changes. Laboratory data reviewed, WBC 5.8, hemoglobin 13.5, platelets 251, sodium 139, potassium 4.1, creatinine 0.69, magnesium 1.8, cardiac enzymes negative 3, and T proBNP 1670. Current daily cardiac medications include entresto 24/26 mg twice a day, Aldactone 12.5 mg daily, Lopressor 50 mg twice a day, Lasix 20 mg daily, atorvastatin 40 mg daily and aspirin 81 mg daily. Most recent echocardiogram obtained August 2020 revealed ejection fraction of 50% with mild tricuspid regurgitation. Cardiac catheterization performed February 2020 reveals minor irregularities with no significant coronary artery disease. REVIEW OF SYSTEMS At the time of my exam: CONSTITUTIONAL: Denies fever or chills. CARDIOVASCULAR: Denies chest pain, shortness of breath, orthopnea, PND or palpitations. RESPIRATORY: Denies cough. GASTROINTESTINAL: Denies abdominal pain, diarrhea, constipation, nausea or vo miting. MUSCULOSKELETAL: Denies myalgias. NEUROLOGIC: Denies numbness, tingling, headacbe or weakness. ENDOCRINE: Denies fatigue, weight change, polydipsia or polyurina. GENITOURINARY: Denies burning, hematuria or urgency with micturation. HEMATOLOGIC: Denies history of anemia or bleeding. PHYSICAL EXAMINATION Blood pressure 113/71 heart rate 70 afebrile and maintaining oxygen saturation on room air. CONSTITUTIONAL: No apparent distress. HEENT: Head is normocephalic. Pupils are equal, round. Sclerae anicteric. Mucous membranes of the mouth are moist. No JVD. No carotid bruit. CHEST EXAMINATION: Lungs are clear to auscultation. No chest wall tenderness is noted on palpation or with deep breathing. HEART EXAMINATION: Regular rate and rhythm. S1, S2 heard. No murmurs, gallops or rub. ABDOMEN: Soft, nontender. Positive bowel sounds. EXTREMITIES: 2+ peripheral pulses, no lower extremity edema and no calf tenderness. NEUROLOGIC EXAMINATION: Patient is awake, alert and oriented x3. ASSESSMENT Syncope Non-ischemic cardiomyopathy s/p AICD Chronic systolic heart failure, clinically euvolemic Hypertension Dyslipidemia Chronic nicotine dependence Former alcohol abuse PLAN No evidence of arrhythmia on ICD interrogation or telemetry tracings. Symptoms could be related to low blood pressure given his heart failure medications. Orthostatics here are negative. Check d-dimer. Ongoing observation for another 24 hours. Increase activity and ambulation in the halls. Thank you kindly for this consultation. Nurse Practitioner note has been reviewed, I agree with a documented findings and plan of care. Patient was seen and examined. Past Medical History Past Medical History: COPD, Hyperlipidemia, Hypertension, Myocardial Infarction ([place]), Osteoarthritis (OA) Additional Past Medical History / Comment(s): arthritis, "shakes", syncope, blood clot to lt arm. EF-20/25% Last Myocardial Infarction Date:: 02/25/20 History of Any Multi-Drug Resistant Organisms: None Reported Past Surgical History: AICD, Appendectomy, Heart Catheterization, Pacemaker Past Anesthesia/Blood Transfusion Reactions: No Reported Reaction Type of Cardiac Device: Permanent Pacemaker, AICD Device Placement Date:: 05/01/20 Past Psychological History: No Psychological Hx Reported Smoking Status: Current every day smoker Past Alcohol Use History: None Reported Additional Past Alcohol Use History / Comment(s): QUIT SMOKING 02/2020; pt resumed smoking in 2020, patient says he hasn't drank alcohol since april 2020 Past Drug Use History: None Reported - Past Family History Mother Family Medical History: Cancer Additional Family Medical History / Comment(s): Cancer in jaw Father Family Medical History: COPD Medications and Allergies Home Medications Medication Instructions Recorded Confirmed Type Spironolactone [Aldactone] 12.5 mg PO DAILY 02/25/20 10/26/20 History Atorvastatin [Lipitor] 40 mg PO DAILY 90 Days #90 tab 02/29/20 10/26/20 Rx Cholecalciferol [Vitamin D3 (25 25 mcg PO DAILY 08/12/20 10/26/20 History Mcg = 1000 Iu)] Metoprolol Tartrate [Lopressor] 50 mg PO BID 08/14/20 10/26/20 History Sacubitril/Valsartan [Entresto 24 1 tab PO BID 08/14/20 10/26/20 History mg-26 mg Tablet] Aspirin EC [Ecotrin Low Dose] 81 mg PO DAILY 09/15/20 10/26/20 History Enoxaparin [Lovenox] 80 mg SQ Q12HR 30 Days #60 syringe 09/18/20 10/26/20 Rx Pantoprazole [Protonix] 40 mg PO BID 30 Days #60 tablet. 09/18/20 10/26/20 Rx Furosemide [Lasix] 20 mg PO DAILY 10/22/20 10/26/20 History Vitamin B Complex 1 cap PO DAILY 10/22/20 10/26/20 History Allergies Allergy/AdvReac Type Severity Reaction Status Date / Time No Known Allergies Allergy Verified 10/26/20 12:01 Physical Exam Vitals: Vital Signs Temp Pulse Pulse Pulse Resp BP BP 10/27/20 08:00 70 75 18 10/27/20 07:00 97.8 F 70 18 10/27/20 01:15 98.0 F 75 18 10/26/20 21:17 97.6 F 83 19 10/26/20 20:55 98.6 F 92 18 124/85 10/26/20 18:52 95 132/87 10/26/20 16:00 10/26/20 13:28 74 18 127/93 10/26/20 11:20 85 18 126/86 10/26/20 09:36 97.6 F 96 18 123/78 BP BP Pulse Ox 10/27/20 08:00 10/27/20 07:00 113/71 96 10/27/20 01:15 127/81 98 10/26/20 21:17 142/91 99 10/26/20 20:55 97 10/26/20 18:52 117/93 132/84 10/26/20 16:00 97 10/26/20 13:28 97 10/26/20 11:20 97 10/26/20 09:36 100 Intake and Output 10/26/20 10/27/20 10/27/20 22:59 06:59 14:59 Intake Total 240 Output Total 850 Balance 240 -850 Intake: Oral 240 Output: Urine 850 Other: Voiding Method Urinal Urinal Weight 70 kg Results 10/26/20 10:16 10/26/20 10:16 Cardiac Enzymes 10/26/20 10/26/20 10/26/20 Range/Units 10:16 10:16 13:01 AST 20 (17-59) U/L Troponin I 0.012 0.016 (0.000-0.034) ng/mL 10/26/20 Range/Units 16:35 AST (17-59) U/L Troponin I <0.012 (0.000-0.034) ng/mL Coagulation 10/26/20 Range/Units 10:16 PT 10.2 (9.0-12.0) sec APTT 25.2 (22.0-30.0) sec CBC 10/26/20 Range/Units 10:16 WBC 5.8 (3.8-10.6) k/uL RBC 4.22 L (4.30-5.90) m/uL Hgb 13.5 (13.0-17.5) gm/dL Hct 39.5 (39.0-53.0) % Plt Count 251 (150-450) k/uL Comprehensive Metabolic Panel 10/26/20 Range/Units 10:16 Sodium 139 (137-145) mmol/L Potassium 4.1 (3.5-5.1) mmol/L Chloride 108 H (98-107) mmol/L Carbon Dioxide 24 (22-30) mmol/L BUN 16 (9-20) mg/dL Creatinine 0.69 (0.66-1.25) mg/dL Glucose 127 H (74-99) mg/dL Calcium 9.8 (8.4-10.2) mg/dL AST 20 (17-59) U/L ALT 15 (4-49) U/L Alkaline Phosphatase 77 (38-126) U/L Total Protein 6.5 (6.3-8.2) g/dL Albumin 3.9 (3.5-5.0) g/dL Current Medications Generic Name Dose Route Start Last Admin Trade Name Freq PRN Reason Stop Dose Admin Aspirin 81 mg 10/27/20 09:00 10/27/20 07:39 Aspirin 81 Mg PO 81 mg DAILY GONZÁLEZ Administration Atorvastatin Calcium 40 mg 10/26/20 22:30 10/27/20 07:38 Atorvastatin 40 Mg Tab PO 40 mg DAILY GONZÁLEZ Administration Cholecalciferol 25 mcg 10/27/20 09:00 10/27/20 07:39 Cholecalciferol 25 Mcg (1000 Iu) Tablet PO 25 mcg DAILY GONZÁLEZ Administration Enoxaparin Sodium 80 mg 10/27/20 09:00 10/27/20 07:40 Enoxaparin 80 Mg/0.8 Ml Syringe SQ 80 mg Q12HR GONZÁLEZ Administration Furosemide 20 mg 10/27/20 09:00 10/27/20 07:39 Furosemide 20 Mg Tab PO 20 mg DAILY GONZÁLEZ Administration Sodium Chloride 1,000 mls @ 75 mls/hr 10/26/20 21:15 10/27/20 00:01 Saline 0.9% IV 75 mls/hr .[id number] GONZÁLEZ Administration Metoprolol Tartrate 50 mg 10/26/20 22:30 10/27/20 07:39 Metoprolol Tartrate 50 Mg Tab PO Not Given BID GONZÁLEZ Morphine Sulfate 2 mg 10/26/20 22:13 10/26/20 23:47 Morphine Sulfate 2 Mg/Ml Syringe IVP 2 mg Q4H PRN Administration Pain/Discomfort Multivit/Ca Carb/B Cmplx/FA/Prenat 1 each 10/27/20 09:00 10/27/20 07:40 Folic Acid-Vit B Complex-Vit C 1 Cap PO 1 each DAILY GONZÁLEZ Administration Nitroglycerin 0.4 mg 10/26/20 11:17 Nitroglycerin Sl Tabs 0.4 Mg Tab SUBLINGUAL Q5M PRN Chest Pain Pantoprazole Sodium 40 mg 10/27/20 09:00 10/27/20 07:38 Pantoprazole 40 Mg Tablet PO 40 mg BID GONZÁLEZ Administration Sacubitril/Valsartan 1 each 10/26/20 22:30 10/27/20 07:39 Sacubitril/Valsartan 24 Mg-26 Mg Tablet PO 1 each BID GONZÁLEZ Administration Spironolactone 12.5 mg 10/27/20 09:00 10/27/20 07:39 Spironolactone 25 Mg Tab PO 12.5 mg DAILY GONZÁLEZ Administration Intake and Output 10/26/20 10/27/20 10/27/20 22:59 06:59 14:59 Intake Total 240 Output Total 850 Balance 240 -850 Intake: Oral 240 Output: Urine 850 Other: Voiding Method Urinal Urinal Weight 70 kg 10/26/20 10:16 10/26/20 10:16
[2020-10-27 12:19] LABS: Chol/HDL Ratio 3.48; LDL Cholesterol,Calculated 75.4 mg/dL (0.0-131.0); VLDL Calculation 28.6 mg/dL (5.00-40.00)
[2020-10-27 14:31] VITALS: RESP 16
[2020-10-27] MEDS ORDERED: ONDANSETRON 4 MG/2 ML VIAL IVP PRN (21:24)
[2020-10-27] MEDS: METOPROLOL TARTRATE 25 MG TAB PO SCH (22:43)
--- NOTE | 2020-10-28 06:28 | PN ---
PROGRESS NOTE He possibly has some orthostatic hypotension. His breathing is much improved. He feels more hydrated than he was before. He has low blood pressure secondary to hypotension, possibly due to the Entresto medication. Cardiovascular S1-S2. Lungs clear. GI soft. Hematology negative Homans. Psych fair mood and affect. ASSESSMENT: Systolic heart failure, possibly orthostatic hypotension, dehydration, nausea, vomiting. Would check orthostasis on him and possible discharge home in the morning, as he feels much better than when he came into the hospital. MMODL / IJN: [id number] /
[2020-10-28 07:45] VITALS: PULSE 68; TEMP 97.9
[2020-10-28] MEDS: ATORVASTATIN 40 MG TAB PO SCH (08:55)
[2020-10-28] MEDS: PANTOPRAZOLE 40 MG TABLET PO SCH (08:55)
[2020-10-28] MEDS: ASPIRIN 81 MG PO SCH (08:55)
[2020-10-28] MEDS: SACUBITRIL/VALSARTAN 24 MG-26 MG TABLET PO SCH (08:55)
[2020-10-28] MEDS: SPIRONOLACTONE 25 MG TAB PO SCH (08:56)
[2020-10-28] MEDS: FOLIC ACID-VIT B COMPLEX-VIT C 1 CAP PO SCH (08:57)
[2020-10-28] MEDS: METOPROLOL TARTRATE 25 MG TAB PO SCH (08:57)
[2020-10-28] MEDS: CHOLECALCIFEROL 25 MCG (1000 IU) TABLET PO SCH (08:58)
[2020-10-28] MEDS: ENOXAPARIN 80 MG/0.8 ML SYRINGE SQ SCH (08:58)
[2020-10-28] MEDS: FUROSEMIDE 20 MG TAB PO SCH (08:58)
[2020-10-28 09:02] VITALS: BP 110/80
--- NOTE | 2020-10-28 10:54 | P.PN ---
Subjective HISTORY OF PRESENTING ILLNESS This is a pleasant 60-year-old male past medical history significant for nonischemic cardiomyopathy status post AICD, hypertension, chronic systolic heart failure, hypertension, dyslipidemia, chronic nicotine dependence and former alcohol abuse. He follows in the office with Dr Thomas. We have been asked to see in consultation for syncope. He presented to the hospital and states that since Monday he has passed out 6 times. He cannot think of any specific precipitating factors. He states it happens at all times of the day while he is sitting or standing he initially becomes diaphoretic and then ligh theaded and then he wakes up on the floor. He denies having any chest pain or shortness of breath. He does not believe he is receiving any shocks from his defibrillator. Device interrogation is unremarkable. He hasn't no evidence of VT, VF, SVT or atrial fibrillation. Telemetry tracings left 5 throughout this admission have been unremarkable. 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 EKG on arrival reveals sinus mechanism with T-wave inversions noted in the inferior leads, consistent with previous EKGs. No acute changes. Laboratory data reviewed, WBC 5.8, hemoglobin 13.5, platelets 251, sodium 139, potassium 4.1, creatinine 0.69, magnesium 1.8, cardiac enzymes negative 3, and T proBNP 1670. Current daily cardiac medications include entresto 24/26 mg twice a day, Aldactone 12.5 mg daily, Lopressor 50 mg twice a day, Lasix 20 mg daily, atorvastatin 40 mg daily and aspirin 81 mg daily. Most recent echocardiogram obtained August 2020 revealed ejection fraction of 50% with mild tricuspid regurgitation. Cardiac catheterization performed February 2020 reveals minor irregularities with no significant coronary artery disease. 10/28/2020 Patient seen and examined resting comfortably in no acute distress. He has no symptoms of chest discomfort, dizziness or palpitations. Blood pressure 110/80 heart rate 68 afebrile maintaining oxygen saturation on room air. Telemetry tracings reviewed, persistent sinus mechanism with no acute arrhythmia or significant pauses noted. PHYSICAL EXAMINATION CONSTITUTIONAL: No apparent distress. HEENT: Head is normocephalic. Pupils are equal, round. Sclerae anicteric. Mucous membranes of the mouth are moist. No JVD. No carotid bruit. CHEST EXAMINATION: Lungs are clear to auscultation. No chest wall tenderness is noted on palpation or with deep breathing. HEART EXAMINATION: Regular rate and rhythm. S1, S2 heard. No murmurs, gallops or rub. EXTREMITIES: 2+ peripheral pulses, no lower extremity edema and no calf te nderness. ASSESSMENT Syncope Non-ischemic cardiomyopathy s/p AICD Chronic systolic heart failure, clinically euvolemic Hypertension Dyslipidemia Chronic nicotine dependence Former alcohol abuse PLAN Stable for discharge from a cardiac perspective. Follow-up in the office with Dr. Thomas in 2 weeks. Nurse Practitioner note has been reviewed, I agree with a documented findings and plan of care. Patient was seen and examined. Objective - Vital Signs Vital signs: Vital Signs Temp 97.9 F 10/28/20 07:00 Pulse 68 10/28/20 07:00 Resp 16 10/28/20 01:44 BP 110/80 10/28/20 08:45 Pulse Ox 96 10/28/20 01:44 Intake & Output 10/27/20 10/28/20 10/28/20 18:59 06:59 18:59 Intake Total 700 825 300 Output Total 1000 200 Balance -300 825 100 Weight 70 kg Intake: Intake, IV Titration 825 Amount Sodium Chloride 0.9% 1, 825 000 ml @ 75 mls/hr IV . [id number] [facility] Rx#:[id number] Oral 700 300 Output: Urine 1000 200 Other: Voiding Method Urinal Urinal # Voids 2 3 1 - Labs CBC & Chem 7: 10/26/20 10:16 10/26/20 10:16
== END 2020-10-28 12:18 ==
LOC: EC 09:35 → 1SOBS 11:22 → 6NMEDSUR 16:07
PROVIDERS: ADMIT Family Medicine; ATTEND Family Medicine
DX: R55 Syncope and collapse (principal); I95.9 Hypotension, unspecified; R07.89 Other chest pain; F17.200 Nicotine dependence, unspecified, uncomplicated; J44.9 Chronic obstructive pulmonary disease, unspecified; I11.0 Hypertensive heart disease with heart failure; I50.22 Chronic systolic (congestive) heart failure; E78.5 Hyperlipidemia, unspecified; I42.8 Other cardiomyopathies; I25.2 Old myocardial infarction; M19.90 Unspecified osteoarthritis, unspecified site; Z79.02 Long term (current) use of antithrombotics/antiplatelets; Z79.82 Long term (current) use of aspirin; Z79.899 Other long term (current) drug therapy; Z90.89 Acquired absence of other organs; Z95.810 Presence of automatic (implantable) cardiac defibrillator; Z86.718 Personal history of other venous thrombosis and embolism; Z86.59 Personal history of other mental and behavioral disorders; Z82.5 Family history of asthma and other chronic lower respiratory diseases; Z80.9 Family history of malignant neoplasm, unspecified
CPT/HCPCS: 96376 ×2; 96361 ×2; 96375; 93005 ×2; 96374; 99285; 36415; 85379; 83880; 80061; 80053; 83735; 84484; 85025; 85610; 85730; 71046; G0378 ×3; J2270 ×2; J1650 ×2

== ENCOUNTER 2021-04-27 06:11 | Day surgery (SDC) | payer OTHER ==
[2021-04-26 09:24] VITALS: BMI 28.4
[~2021-04-27 06:11] MED LIST changes: +ACETAMINOPHEN TAB 500 MG TAB PO PRN; +DEXAMETHASONE SOD PHOSPHATE 4 MG/ML 1 ML VIAL IV ONE; +HEPARIN SODIUM,PORCINE/PF 5,000 UNIT/0.5 ML SYRINGE SQ PRN; +LACTATED RINGERS 1,000 ML IV SCH; +LIDOCAINE 1% (10MG/ML) FOR IV START INTRADERMA PRN; +MIDAZOLAM 2 MG/2 ML VIAL IV PRN; +ONDANSETRON 4 MG/2 ML VIAL IVP ONE; -ceFAZolin 1 GM in SODIUM CHLORIDE 0.9% 250 ML IRRIGATION PRN
[2021-04-27] MEDS ORDERED: HYDROmorphone 0.5 MG/0.5 ML SYRINGE IVP PRN (07:00)
[2021-04-27] MEDS ORDERED: LIDOCAINE 1% (10MG/ML) FOR IV START INTRADERMA ONE (07:09)
[2021-04-27] MEDS ORDERED: ROCURONIUM 10 MG/ML (5 ML VIAL) IV ONE (07:55)
[2021-04-27] MEDS ORDERED: PHENYLEPHRINE-0.9% NACL SYG 1,000 MCG/10 ML SYRINGE ONE (07:55)
[2021-04-27] MEDS ORDERED: LIDOCAINE 1% INJ 10MG/ML (20 ML MDV) ONE (07:55)
[2021-04-27] MEDS ORDERED: PROPOFOL 10 MG/ML 20 ML VIAL IV ONE (07:55)
[2021-04-27] MEDS ORDERED: SUCCINYLCHOLINE CHLORIDE 100 MG/5 ML SYR IV ONE (07:55)
[2021-04-27] MEDS ORDERED: MIDAZOLAM 2 MG/2 ML VIAL ONE (07:55)
[2021-04-27] MEDS ORDERED: GLYCOPYRROLATE 0.2 MG/ML 2 ML VIAL ONE (07:55)
[2021-04-27] MEDS ORDERED: fentaNYL (PF) 50 MCG/ML 2 ML AMP ONE (07:55)
[2021-04-27] MEDS ORDERED: NEOSTIGMINE 1 MG/ML 10 ML VIAL ONE (07:55)
[2021-04-27] MEDS ORDERED: BUPIVACAIN-EPI 0.25%-1:200,000 30 ML VIAL SQ ONE ×2 (08:00→08:18)
[2021-04-27] MEDS ORDERED: LACTATED RINGERS 1,000 ML IV ONE (08:39)
[2021-04-27 09:05] VITALS: TEMP 97.8
[2021-04-27] MEDS ORDERED: KETOROLAC 15 MG/ML 1 ML VIAL IVP ONE (09:05)
--- NOTE | 2021-04-27 09:09 | P.OP ---
Date of Procedure: 04/27/21 Preoperative Diagnosis: Cholecystitis Postoperative Diagnosis: Cholecystitis Ascites Procedure(s) Performed: Laparoscopic cholecystectomy Anesthesia: RADHA Surgeon: Castillo Carrillo Estimated Blood Loss (ml): 10 Pathology: other (Gallbladder) Condition: stable Disposition: PACU Description of Procedure: The patient was placed on the operating table. The patient received a general endotracheal tube anesthesia. The patients abdomen was prepped and draped in the usual sterile fashion. Through an infraumbilical stab incision, the fascia of the anterior abdominal wall was grasped with a pair of Kochers and then the Veress needle was placed in the peritoneal cavity. Position of the Veress needle was confirmed with positive drop test. The abdomen was then insufflated. After adequate insufflation, the 10 mm trocar was placed in the peritoneal cavity. Following this the laparoscope was placed in the peritoneal cavity. The patient was placed in the head-up, right side up position and then a 5 mm trocar was placed in the right lateral and right subcostal position under direct visualization. A 8 mm trocar was placed in the epigastric position. There was ascites seen in the peritoneal cavity. Approximately 1200 mL of ascites was aspirated. The liver had a mildly cirrhotic appearance. The gallbladder was grasped in the fundus and infundibulum. Traction on the gallbladder was placed in the lateral and the cephalad positions. The triangle of Calot was visualized.. The cystic duct was bluntly dissected until the union of the cystic duct and common bile duct was seen. A critical view of safety was achieved. The cystic duct was then divided and sealed with the Harmonic scissors. A PDS Endoloop was then placed throughout the cystic duct stump. The cystic artery divided and sealed with the Harmonic scissors. The gallbladder was then removed from the liver bed using Harmonic scissors. The gallbladder was then extracted through the epigastric port site. Operative field was checked for any bleeding spots and Harmonic scissors was used to coagulate the liver bed. The abdomen was irrigated. The trocars were removed. The skin was closed using interrupted 3-0 Vicryl suture. Dermabond dressing were applied. The patient tolerated the procedure well.
--- NOTE | 2021-04-27 09:10 | P.GSHP ---
History of Present Illness H&P Date: 04/27/21 Chief Complaint: Right upper quadrant pain This a 60-year-old male who presents today for laparoscopic cholecystectomy. Patient had complete upper quadrant pain. His recent ultrasound shows evidence of cholelithiasis thickened gallbladder wall. Past Medical History Past Medical History: COPD, Hyperlipidemia, Hypertension, Myocardial Infarction ([place]), Osteoarthritis (OA), Syncope Additional Past Medical History / Comment(s): "Shakes", hx blood clot to left arm. Last Myocardial Infarction Date:: 02/25/20 History of Any Multi-Drug Resistant Organisms: None Reported Past Surgical History: AICD, Appendectomy, Heart Catheterization, Pacemaker Past Anesthesia/Blood Transfusion Reactions: No Reported Reaction Type of Cardiac Device: Permanent Pacemaker, AICD Device Placement Date:: 05/01/20 Past Psychological History: No Psychological Hx Reported Smoking Status: Former smoker Past Alcohol Use History: None Reported Additional Past Alcohol Use History / Comment(s): QUIT SMOKING 02/2020, no alcohol since April 2020. Past Drug Use History: None Reported - Past Family History Mother Family Medical History: Cancer Additional Family Medical History / Comment(s): Cancer in jaw. Father Family Medical History: COPD Medications and Allergies Home Medications Medication Instructions Recorded Confirmed Type Enoxaparin [Lovenox] 80 mg SQ Q12H 04/01/21 04/26/21 History Furosemide [Lasix] 40 mg PO BID 04/01/21 04/26/21 History Atorvastatin [Lipitor] 80 mg PO DAILY 90 Days #90 tab 04/10/21 04/26/21 Rx Budesonide-Formot 160-4.5 Mcg 1 puff INHALATION RT-BID 30 Days 04/10/21 04/26/21 Rx [Symbicort 160-4.5 Mcg Inhaler] #1 gm Metoprolol Succinate (ER) [Toprol 25 mg PO BID 90 Days #180 04/10/21 04/26/21 Rx XL] Nitroglycerin Sl Tabs [Nitrostat] 0.4 mg SUBLINGUAL ONCE PRN 180 04/10/21 04/26/21 Rx Days #100 tab Spironolactone [Aldactone] 25 mg PO DAILY 90 Days #90 tab 04/10/21 04/26/21 Rx Allergies Allergy/AdvReac Type Severity Reaction Status Date / Time No Known Allergies Allergy Verified 04/27/21 06:45 Surgical - Exam Vital Signs Temp Pulse Resp BP Pulse Ox 98.3 F 99 20 105/70 99 04/27/21 06:42 04/27/21 06:42 04/27/21 06:42 04/27/21 06:42 04/27/21 06:42 - General well developed, well nourished, no distress, moderate pain - Eyes PERRL - ENT normal pinna - Neck no masses - Respiratory normal expansion - Cardiovascular Rhythm: regular - Abdomen Abdomen: soft, non tender Assessment and Plan Assessment: Chronic cholecystitis. We'll perform laparoscopically cholecystectomy. Patient has known ascites. I discussed with him the risks of surgery including ascitic fluid leaking from his incision sites.
[2021-04-27 09:22] VITALS: RESP 18
[2021-04-27 10:50] VITALS: PULSE 79
[2021-04-27 11:01] VITALS: BP 111/82
== END 2021-04-27 11:30 | disposition home or self-care (01) ==
LOC: OR 06:11
PROVIDERS: ATTEND Surgery
DX: K81.1 Chronic cholecystitis (principal); R18.8 Other ascites; Z20.822 Contact with and (suspected) exposure to COVID-19; J44.9 Chronic obstructive pulmonary disease, unspecified; E78.5 Hyperlipidemia, unspecified; I10 Essential (primary) hypertension; I25.2 Old myocardial infarction; M19.90 Unspecified osteoarthritis, unspecified site; Z95.810 Presence of automatic (implantable) cardiac defibrillator; Z87.891 Personal history of nicotine dependence; Z80.9 Family history of malignant neoplasm, unspecified; Z82.49 Family history of ischemic heart disease and other diseases of the circulatory system
CPT/HCPCS: 47562; 88304; 87635; J2250; J1100; J2710; J0690; J2405; J2001; J3010; J1885; J2370; J0330; J2704

== ENCOUNTER 2021-04-29 10:43 | Observation (INO) | payer OTHER ==
[2021-04-29] MEDS ORDERED: SODIUM CHLORIDE 0.9% 500 ML 500 ML IV STA (11:04)
--- NOTE | 2021-04-29 11:15 | ED ---
Recheck HPI - General Chief Complaint: Recheck/Abnormal Lab/Rx Stated Complaint: Low BP/post surg draining Time Seen by Provider: 04/29/21 10:52 Source: patient Mode of arrival: ambulatory Limitations: no limitations - History of Present Illness Initial Comments: patient is a 60-year-old male with a past medical history of hypertension, and [place], and left arm blood clot who was referred to the ED by Dr. Burgos due to hypotension and copious serous fluid drainage from his abdominal incision status post cholecystectomy [address] Carrillo. patient reports that he visited Dr. Burgos today for a routine follow-up and has mild abdominal tende rness surrounding his surgical incision, otherwise feeling well. he denies fever, chills, fatigue, dizziness, chest pain, shortness of breath, abdominal pain, and leg pain. - Related Data Home Medications Medication Instructions Recorded Confirmed Enoxaparin [Lovenox] 80 mg SQ Q12H 04/01/21 04/29/21 Furosemide [Lasix] 40 mg PO BID 04/01/21 04/29/21 Previous Rx's Medication Instructions Recorded Atorvastatin [Lipitor] 80 mg PO DAILY 90 Days #90 tab 04/10/21 Budesonide-Formot 160-4.5 Mcg 1 puff INHALATION RT-BID 30 Days 04/10/21 [Symbicort 160-4.5 Mcg Inhaler] #1 gm Metoprolol Succinate (ER) [Toprol 25 mg PO BID 90 Days #180 04/10/21 XL] Nitroglycerin Sl Tabs [Nitrostat] 0.4 mg SUBLINGUAL ONCE PRN 180 04/10/21 Days #100 tab Spironolactone [Aldactone] 25 mg PO DAILY 90 Days #90 tab 04/10/21 Acetaminophen Tab [Tylenol] 650 mg PO Q6H #30 tab 04/27/21 Docusate [Colace] 100 mg PO BID #20 capsule 04/27/21 Ibuprofen [Motrin] 600 mg PO Q6HR PRN #40 tab 04/27/21 oxyCODONE HCL [OxyIR] 5 mg PO Q6H PRN 3 Days #10 tab 04/27/21 Allergies Allergy/AdvReac Type Severity Reaction Status Date / Time No Known Allergies Allergy Verified 04/29/21 12:11 Review of Systems ROS Statement: Those systems with pertinent positive or pertinent negative responses have been documented in the HPI. ROS Other: All systems not noted in ROS Statement are negative. Past Medical History Past Medical History: COPD, Hyperlipidemia, Hypertension, Myocardial Infarction ([place]), Osteoarthritis (OA), Syncope Additional Past Medical History / Comment(s): "Shakes", hx blood clot to left arm. Last Myocardial Infarction Date:: 02/25/20 History of Any Multi-Drug Resistant Organisms: None Reported Past Surgical History: AICD, Appendectomy, Cholecystectomy, Heart Catheterization, Pacemaker Past Anesthesia/Blood Transfusion Reactions: No Reported Reaction Type of Cardiac Device: Permanent Pacemaker, AICD Device Placement Date:: 05/01/20 Past Psychological History: No Psychological Hx Reported Smoking Status: Former smoker Past Alcohol Use History: None Reported Past Drug Use History: None Reported - Past Family History Mother Family Medical History: Cancer Additional Family Medical History / Comment(s): Cancer in jaw. Father Family Medical History: COPD General Exam Limitations: no limitations General appearance: alert, in no apparent distress Head exam: Present: atraumatic, normocephalic, normal inspection Eye exam: Present: normal appearance, PERRL, EOMI. Absent: scleral icterus, conjunctival injection, periorbital swelling ENT exam: Present: normal exam, mucous membranes moist Neck exam: Present: normal inspection. Absent: tenderness, meningismus, lymphadenopathy Respiratory exam: Present: rhonchi (b/l) Cardiovascular Exam: Present: regular rate, normal rhythm GI/Abdominal exam: Present: soft, tenderness (around abdominal incisions ), normal bowel sounds. Absent: distended, guarding, rebound, rigid Neurological exam: Present: alert, oriented X3, CN II-XII intact Psychiatric exam: Present: normal affect, normal mood Skin exam: Present: warm, dry, intact, normal color. Absent: rash Course Vital Signs 04/29/21 04/29/21 04/29/21 10:45 12:09 14:09 Temperature 98.3 F 98.0 F Pulse Rate 84 78 Respiratory 18 16 Rate Blood Pressure 95/66 88/67 93/70 O2 Sat by Pulse 92 L 96 Oximetry - Reevaluation(s) Reevaluation #1: Patient resting comfortably in bed. BP 88/67. 04/29/21 11:56 Medical Decision Making - Medical Decision Making Patient is a 60-year-old male with a chief complaint of hypotension status post cholecystectomy 2 days ago. Patient looks well and is hemodynamically stable. Labs are unremarkable. CT abdomen revealed soft tissue in the car and subcutaneous edema. Patient has persistent hypotension. Case discussed with Dr. Burgos. Will admit to Dr. Burgos with consult to Dr. Carrillo for further monitoring. - Lab Data Result diagrams: 04/29/21 11:28 04/29/21 12:11 Lab Results 04/29/21 04/29/21 04/29/21 Range/Units 11:28 11:28 11:28 WBC 10.4 (3.8-10.6) k/uL RBC 4.62 (4.30-5.90) m/uL Hgb 13.8 (13.0-17.5) gm/dL Hct 44.9 (39.0-53.0) % MCV 97.2 (80.0-100.0) fL MCH 29.9 (25.0-35.0) pg MCHC 30.7 L (31.0-37.0) g/dL RDW 14.6 (11.5-15.5) % Plt Count 228 (150-450) k/uL MPV 8.5 Neutrophils % 74 % Lymphocytes % 17 % Monocytes % 6 % Eosinophils % 2 % Basophils % 0 % Neutrophils # 7.7 (1.3-7.7) k/uL Lymphocytes # 1.7 (1.0-4.8) k/uL Monocytes # 0.6 (0-1.0) k/uL Eosinophils # 0.2 (0-0.7) k/uL Basophils # 0.1 (0-0.2) k/uL Hypochromasia Moderate PT 11.1 (9.0-12.0) sec INR 1.0 (<1.2) APTT 22.3 (22.0-30.0) sec Sodium (137-145) mmol/L Potassium (3.5-5.1) mmol/L Chloride (98-107) mmol/L Carbon Dioxide (22-30) mmol/L Anion Gap mmol/L BUN (9-20) mg/dL Creatinine (0.66-1.25) mg/dL Est GFR (CKD-EPI)AfAm (>60 ml/min/1.73 sqM) Est GFR (CKD-EPI)NonAf (>60 ml/min/1.73 sqM) Glucose (74-99) mg/dL Plasma Lactic Acid Jamin 1.2 (0.7-2.0) mmol/L Calcium (8.4-10.2) mg/dL Total Bilirubin (0.2-1.3) mg/dL AST (17-59) U/L ALT (4-49) U/L Alkaline Phosphatase (38-126) U/L Total Protein (6.3-8.2) g/dL Albumin (3.5-5.0) g/dL 04/29/21 Range/Units 12:11 WBC (3.8-10.6) k/uL RBC (4.30-5.90) m/uL Hgb (13.0-17.5) gm/dL Hct (39.0-53.0) % MCV (80.0-100.0) fL MCH (25.0-35.0) pg MCHC (31.0-37.0) g/dL RDW (11.5-15.5) % Plt Count (150-450) k/uL MPV Neutrophils % % Lymphocytes % % Monocytes % % Eosinophils % % Basophils % % Neutrophils # (1.3-7.7) k/uL Lymphocytes # (1.0-4.8) k/uL Monocytes # (0-1.0) k/uL Eosinophils # (0-0.7) k/uL Basophils # (0-0.2) k/uL Hypochromasia PT (9.0-12.0) sec INR (<1.2) APTT (22.0-30.0) sec Sodium 138 (137-145) mmol/L Potassium 4.4 (3.5-5.1) mmol/L Chloride 106 (98-107) mmol/L Carbon Dioxide 26 (22-30) mmol/L Anion Gap 6 mmol/L BUN 29 H (9-20) mg/dL Creatinine 1.16 (0.66-1.25) mg/dL Est GFR (CKD-EPI)AfAm 80 (>60 ml/min/1.73 sqM) Est GFR (CKD-EPI)NonAf 69 (>60 ml/min/1.73 sqM) Glucose 92 (74-99) mg/dL Plasma Lactic Acid Jamin (0.7-2.0) mmol/L Calcium 8.4 (8.4-10.2) mg/dL Total Bilirubin 1.0 (0.2-1.3) mg/dL AST 38 (17-59) U/L ALT 70 H (4-49) U/L Alkaline Phosphatase 100 (38-126) U/L Total Protein 5.8 L (6.3-8.2) g/dL Albumin 3.1 L (3.5-5.0) g/dL Disposition Clinical Impression: Hypotension after procedure, Hemorrhage while on warfarin therapy Disposition: ADMITTED IP TO THIS [facility] Condition: Fair Referrals: Felix Burgos MD [Primary Care Provider] - 1-2 days Time of Disposition: 14:38
[2021-04-29 11:40] LABS: Basophils # (A) 0.1 k/uL (0-0.2); Basophils % (A) 0 %; Eosinophils # (A) 0.2 k/uL (0-0.7); Eosinophils % (A) 2 %; HCT 44.9 % (39.0-53.0); HGB 13.8 gm/dL (13.0-17.5); Hypochromasia Moderate; Lymphocytes # (A) 1.7 k/uL (1.0-4.8); Lymphocytes % (A) 17 %; MCH 29.9 pg (25.0-35.0); MCHC 30.7 g/dL (31.0-37.0); MCV 97.2 fL (80.0-100.0); Mean Platelet Volume 8.5; Monocytes # (A) 0.6 k/uL (0-1.0); Monocytes % (A) 6 %; Neutrophils # (A) 7.7 k/uL (1.3-7.7); Neutrophils % (A) 74 %; Platelet Count 228 k/uL (150-450); RBC 4.62 m/uL (4.30-5.90); RDW 14.6 % (11.5-15.5); WBC 10.4 k/uL (3.8-10.6)
[2021-04-29 12:08] LABS: Partial Thromboplastin Time 22.3 sec (22.0-30.0); Prothrombin Time 11.1 sec (9.0-12.0)
[2021-04-29 12:29] LABS: Albumin 3.1 g/dL (3.5-5.0); Calcium 8.4 mg/dL (8.4-10.2); Potassium 4.4 mmol/L (3.5-5.1); Total Protein 5.8 g/dL (6.3-8.2)
[2021-04-29] MEDS ORDERED: HYDROmorphone 0.5 MG/0.5 ML SYRINGE IVP STA (13:11)
--- NOTE | 2021-04-29 14:01 | CT ---
EXAMINATION TYPE: CT abdomen pelvis w con DATE OF EXAM: 04/29/2021 COMPARISON: CT abdomen and pelvis April 03, 2021 HISTORY: drainage from surgical site from gallbladder sx CT DLP: 1261.1 mGycm, Automated Exposure Control for Dose Reduction was Utilized. CONTRAST: CT scan of the abdomen and pelvis is performed without oral but with IV Contrast, patient injected wi th 100 mL of Isovue 300. FINDINGS: LUNG BASES: Persistent cardiomegaly with single lead pacemaker/defibrillator. Persistent mild to mode rate concentric wall thickening distal esophagus should be correlated clinically to determine need fo r further investigation by direct visualization. LIVER/GB: Liver remains heterogeneously hypodense with small amount of adjacent ascites. Gallbladder is now surgically absent. No new biliary dilatation. Small amount of free fluid at level of gallbladd er fossa is nonspecific. Liver redemonstrates reflux of contrast right heart into IVC and hepatic vei ns on initial images consistent with degree of right heart failure and heterogeneous enhancement on d elayed phase images similar to prior study. Mild periportal edema is again seen. PANCREAS: No significant abnormality is seen. SPLEEN: Small amount of adjacent ascites redemonstrated and less prominent. ADRENALS: No significant abnormality is seen. KIDNEYS: A few punctate nonobstructing renal calculi are identified bilaterally. There is tiny thin-w alled cyst in the right kidney posteriorly lower pole level delayed axial image 41 redemonstrated. No hydronephrosis seen bilaterally. The visualized excretion noted. There are 2 right renal arteries re demonstrated. BOWEL: Suboptimal evaluation without enteric contrast. There is no suspicious small or large bowel di latation seen. There is persistent debris-containing 2.6 cm diverticulum along third portion of duod enal coronal image 43. PROSTATE/SEMINAL VESICLES: Prostate gland stable and measures within normal limits in size. LYMPH NODES: No greater than 1cm abdominal or pelvic lymph nodes are appreciated. OSSEOUS STRUCTURES: Multilevel spurring in the thoracolumbar spine. OTHER: Small amount of free fluid in pelvis is smaller than prior. Moderate diffuse subcutaneous courtney a and/or soft tissue anasarca is redemonstrated fairly stable. Moderate peripheral plaque in the abdominal aorta extends into branch vessels.r IMPRESSION: 1. Persistent fairly stable moderate diffuse soft tissue anasarca and subcutaneous edema. Small amoun t of intra-abdominal and pelvic ascites is improved from prior. Small amount of fluid level gallbladd er fossa is nonspecific, not out of proportion to what is identified throughout remainder of the abdo men and pelvis. No free air seen. No well-formed fluid collection or drainable abscess noted. Underly ing right heart failure redemonstrated. No suspicious new finding is seen.
[2021-04-29] MEDS ORDERED: FUROSEMIDE 10 MG/ML 2 ML VIAL IV STA (14:15)
[2021-04-29] MEDS ORDERED: NALOXONE 0.4 MG/ML 1 ML VIAL IV PRN (14:25)
[2021-04-29] MEDS ORDERED: HYDROmorphone 0.5 MG/0.5 ML SYRINGE IVP PRN (14:25)
[2021-04-29] MEDS ORDERED: ONDANSETRON 4 MG/2 ML VIAL IVP PRN (14:25)
[2021-04-29] MEDS ORDERED: IBUPROFEN 600 MG TAB PO PRN (17:02)
[2021-04-29] MEDS ORDERED: NITROGLYCERIN SL TABS 0.4 MG TAB SUBLINGUAL PRN (17:02)
[2021-04-29] MEDS ORDERED: ACETAMINOPHEN TAB 325 MG TAB PO PRN (17:15)
[2021-04-29] MEDS: FUROSEMIDE 40 MG TAB PO SCH (17:18)
[2021-04-29] MEDS: ENOXAPARIN 80 MG/0.8 ML SYRINGE SQ SCH (17:37)
[2021-04-29] MEDS: SYMBICORT 160-4.5 MCG INHALER INHALATION SCH (19:33)
[2021-04-29] MEDS: METOPROLOL SUCCINATE (ER) 25 MG TAB.ER.24H PO SCH (21:20)
[2021-04-29] MEDS: DOCUSATE 100 MG CAP PO SCH (21:20)
[2021-04-30] MEDS: ENOXAPARIN 80 MG/0.8 ML SYRINGE SQ SCH ×2 (06:00→17:48)
[2021-04-30 06:18] VITALS: RESP 17
[2021-04-30] MEDS: FUROSEMIDE 40 MG TAB PO SCH ×2 (08:21→16:35)
[2021-04-30] MEDS: DOCUSATE 100 MG CAP PO SCH (08:21)
[2021-04-30] MEDS: METOPROLOL SUCCINATE (ER) 25 MG TAB.ER.24H PO SCH (08:22)
[2021-04-30] MEDS ORDERED: SPIRONOLACTONE 25 MG TAB PO SCH (09:00)
[2021-04-30] MEDS ORDERED: ATORVASTATIN 80 MG TAB PO SCH (09:00)
[2021-04-30] MEDS: SYMBICORT 160-4.5 MCG INHALER INHALATION SCH (09:02)
[2021-04-30 13:56] VITALS: BP 99/66; PULSE 63; TEMP 98.3
--- NOTE | 2021-04-30 16:31 | P.GSCN ---
History of Present Illness Consult date: 04/30/21 History of present illness: CHIEF COMPLAINT: Hypotension and drainage from his incision site HISTORY OF PRESENT ILLNESS: This is a 60-year-old male who presented to the emergency room due to hypotension and serous drainage from his abdominal incision. He is status post cholecystectomy [address] walton. Postoperative diagnosis was cholecystitis and evidence of ascites. Patient does have a prior history of alcohol abuse. Patient denies any abdominal pain. Denies any fever chills or sweats. Denies any nausea or vomiting. Denies any change in bowel habits. Surgical service consulted regarding hypotension status post recent cholecystectomy. Patient did receive a dose of IV Lasix in the ER. PAST MEDICAL HISTORY: COPD, Hyperlipidemia, Hypertension, Myocardial Infarction ([place]), Osteoarthritis ([place]), Syncope PAST SURGICAL HISTORY: AICD, Appendectomy, Cholecystectomy, Heart Catheterization, Pacemaker MEDICATIONS: See list. ALLERGIES: See list. SOCIAL HISTORY: History of heavy alcohol use. Patient reports many years since his last alcoholic beverage. REVIEW OF SYSTEMS: CONSTITUTIONAL: Denies fever or chills. HEENT: Denies blurred vision, vision changes, or eye pain. Denies hemoptysis CARDIOVASCULAR: Denies chest pain or pressure. RESPIRATORY: No shortness of breath. GASTROINTESTINAL: See HPI for pertinent findings HEMATOLOGIC: Denies bleeding disorders. GENITOURINARY: Denies any blood in urine or increased urinary frequency. SKIN: Denies pruitis. Denies rash. PHYSICAL EXAM: VITAL SIGNS: Reviewed GENERAL: Well-developed in no acute distress. HEENT: No sclera icterus. Extraocular movements grossly intact. Moist buccal mucosa. Head is atraumatic, normocephalic. No nasal drainage. ABDOMEN: Soft. Obese. Nondistended. Patient has serous drainage from the incision site at the umbilicus. NEUROLOGIC: Alert and oriented. Cranial nerves II through XII grossly intact. LABORATORY DATA: WBC is 10.4 hemoglobin is 13.8 platelets 228 INR 1.0 Sodium is 138 potassium 4.4 BUN is 29 creatinine is 1.16 Total bilirubin 1.0 AST 38 ALT 70 Covid Not detected IMAGING: Computed tomography scan abdomen and pelvis shows persistent fairly stable moderate diffuse soft tissue anasarca and subcutaneous edema. Small amount of intra-abdominal and pelvic ascites is improved from prior. Small amount of fluid level gallbladder fossa is nonspecific. Not out of proportion to identified throughout remainder of the abdomen and pelvis. No free air is seen. No well-formed fluid collection or drainable abscess noted. Underlying right heart failure redemonstrated. No suspicious new findings is seen ASSESSMENT: 1. Serous drainage from abdominal incision site. The fluid is likely ascites. Dr. Walton placed one suture at the mid abdominal incision that was draining. 2. Hypotension 3. Status post recent cholecystectomy 2 days ago PLAN: -Patient can be discharge from surgical standpoint when medically stable -No further surgical intervention planned -Continue supportive care -Continue heart healthy diet Thank you for this consultation Physician Line Assigner note has been reviewed by physician. Signing provider agrees with the documented findings, assessment, and plan of care. Past Medical History Past Medical History: Heart Failure, COPD, Hyperlipidemia, Hypertension, Myocardial Infarction ([place]), Osteoarthritis ([place]), Syncope Additional Past Medical History / Comment(s): DVT L subclavian/surgically removed, nonischemic cardiomyopathy/AICD/pacer in place, past ETOH-no use since 04/2020 Last Myocardial Infarction Date:: 02/25/20 History of Any Multi-Drug Resistant Organisms: None Reported Past Surgical History: AICD, Appendectomy, Cholecystectomy, Heart Cathet erization, Pacemaker Additional Past Surgical History / Comment(s): 04/27/21 lap cholecystectomy, L upper extremity venogram/thrombolysis/thrombectomy Past Anesthesia/Blood Transfusion Reactions: No Reported Reaction Type of Cardiac Device: Permanent Pacemaker, AICD Device Placement Date:: 05/01/20 Past Psychological History: No Psychological Hx Reported Additional Psychological History / Comment(s): Pt resides with his sister. He uses no assistive device. He does not drive, his sister takes him places. Smoking Status: Former smoker Past Alcohol Use History: None Reported Additional Past Alcohol Use History / Comment(s): Pt started smoking in 1985 and quit 04/2020. He last drank alcohol 04/2020 Past Drug Use History: None Reported - Past Family History Mother Family Medical History: Cancer Additional Family Medical History / Comment(s): Cancer in jaw. Father Family Medical History: COPD Medications and Allergies Home Medications Medication Instructions Recorded Confirmed Type Enoxaparin [Lovenox] 80 mg SQ Q12H 04/01/21 04/29/21 History Furosemide [Lasix] 40 mg PO BID 04/01/21 04/29/21 History Atorvastatin [Lipitor] 80 mg PO DAILY 90 Days #90 tab 04/10/21 04/29/21 Rx Budesonide-Formot 160-4.5 Mcg 1 puff INHALATION RT-BID 30 Days 04/10/21 04/29/21 Rx [Symbicort 160-4.5 Mcg Inhaler] #1 gm Metoprolol Succinate (ER) [Toprol 25 mg PO BID 90 Days #180 04/10/21 04/29/21 Rx XL] Nitroglycerin Sl Tabs [Nitrostat] 0.4 mg SUBLINGUAL ONCE PRN 180 04/10/21 Rx Days #100 tab Spironolactone [Aldactone] 25 mg PO DAILY 90 Days #90 tab 04/10/21 04/29/21 Rx Acetaminophen Tab [Tylenol] 650 mg PO Q6H #30 tab 04/27/21 04/29/21 Rx Docusate [Colace] 100 mg PO BID #20 capsule 04/27/21 04/29/21 Rx Ibuprofen [Motrin] 600 mg PO Q6HR PRN #40 tab 04/27/21 04/29/21 Rx oxyCODONE HCL [OxyIR] 5 mg PO Q6H PRN 3 Days #10 tab 04/27/21 04/29/21 Rx Allergies Allergy/AdvReac Type Severity Reaction Status Date / Time No Known Allergies Allergy Verified 04/29/21 12:11 Surgical - Exam Vital Signs Temp Pulse Resp BP Pulse Ox 98.3 F 84 18 95/66 92 L 04/29/21 10:45 04/29/21 10:45 04/29/21 10:45 04/29/21 10:45 04/29/21 10:45 Results - Labs 04/29/21 11:28 04/29/21 12:11
--- NOTE | 2021-04-30 20:00 | HP ---
HISTORY AND PHYSICAL This 60-year-old white male was admitted to the hospital with severe drainage from recent wounds over his gallbladder area. He has hypotension and severe drainage from his incision site with large amounts of fluid coming out, soaking 4 dressings in less than a day. Denied any abdominal pain. He has a prior history of alcohol abuse, but he is status post gallbladder surgery. He did get some IV Lasix in the ER. He is back on his home Lasix. Wait for surgical recommendations. PAST MEDICAL HISTORY: COPD, dyslipidemia, hypertension, myocardial infarction, osteoarthritis. SURGERIES: AICD, appendectomy, cholecystectomy, heart catheterization, pacemaker. MEDICINES: See list. ALLERGIES: SEE LIST. SOCIAL HISTORY: Heavy alcohol use. REVIEW OF SYSTEMS: Fourteen-point review of systems otherwise negative except for shortness of breath recently and feeling lightheaded and dizzy after this drainage, which is about 4 days postoperative. PHYSICAL EXAMINATION: Vital signs are reviewed. Endocrine: BMI is over 30. Abdomen is soft. He has incisions x4 with serous drainage around incision site, a large amount. Head normocephalic, atraumatic. Neurologic: Cranial nerves intact. Psych fair mood and affect. White count is 10.4, hemoglobin 13.8, INR 1.0. Sodium 138, potassium 4.4, BUN 29, creatinine 1.16. Total bilirubin is 1, AST 38, ALT 70. CT scan shows multiple anasarca with subcutaneous edema. No free air. No abscess. ASSESSMENT: Serous drainage from abdominal incision site, a large amount. Fluid is likely ascites per Dr. Carrillo. Possibly will have to admit him, suture him up, monitor for hyp tension over the next 24 for 48 hours. Please see further orders. MMODL / IJN: [id number] /
== END 2021-04-30 19:25 | disposition home or self-care (01) ==
LOC: EC 10:43 → 6NMEDSUR 14:22
PROVIDERS: ADMIT Family Medicine; ATTEND Family Medicine
DX: I95.81 Postprocedural hypotension (principal); K91.872 Postprocedural seroma of a digestive system organ or structure following a digestive system procedure; I11.0 Hypertensive heart disease with heart failure; I50.810 Right heart failure, unspecified; I42.8 Other cardiomyopathies; J44.9 Chronic obstructive pulmonary disease, unspecified; E78.5 Hyperlipidemia, unspecified; R18.8 Other ascites; I25.2 Old myocardial infarction; M19.90 Unspecified osteoarthritis, unspecified site; Z90.49 Acquired absence of other specified parts of digestive tract; Z79.51 Long term (current) use of inhaled steroids; Z79.899 Other long term (current) drug therapy; Z79.01 Long term (current) use of anticoagulants; Z95.810 Presence of automatic (implantable) cardiac defibrillator; Z86.718 Personal history of other venous thrombosis and embolism; Z86.59 Personal history of other mental and behavioral disorders; Z98.890 Other specified postprocedural states; Z87.891 Personal history of nicotine dependence; Z82.5 Family history of asthma and other chronic lower respiratory diseases; Z80.8 Family history of malignant neoplasm of other organs or systems; Z20.822 Contact with and (suspected) exposure to COVID-19
CPT/HCPCS: 96372 ×2; 96374; 96375; 99285; 36415; 94640 ×2; 80053; 83605; 85025; 85610; 85730; 87635; 74177; G0378 ×2; J1940; J1650 ×2; J1170; Q9967

== ENCOUNTER 2021-06-19 19:14 | Inpatient (IN) | payer OTHER ==
[2021-06-19] MEDS ORDERED: NITROGLYCERIN SL TABS 0.4 MG TAB SUBLINGUAL STA (19:35)
[2021-06-19] MEDS ORDERED: MORPHINE SULFATE 2 MG/ML SYRINGE IV STA (19:36)
[2021-06-19] MEDS ORDERED: ONDANSETRON 4 MG/2 ML VIAL IVP STA (19:36)
[2021-06-19] MEDS ORDERED: ALBUTEROL NEBULIZED 2.5 MG/3 ML INHALATION STA (19:40)
[2021-06-19] MEDS ORDERED: IPRATROPIUM-ALBUTEROL 3 ML NEB INHALATION STA ×2 (19:40→21:51)
--- NOTE | 2021-06-19 19:53 | ED ---
Chest Pain HPI - General Source: patient, RN notes reviewed Mode of arrival: wheelchair Limitations: no limitations - History of Present Illness MD Complaint: chest pain, other (MEGHAN) Onset/Timin -: hour(s) Onset: during rest Pain Location: substernal Pain Radiation: none Severity: severe Severity scale (1-10): 10 Quality: sharp Consistency: constant Improves With: nothing Worsens With: inspiration Other Symptoms: cough Treatments Prior to Arrival: none <Maurisio Kirkpatrick - Last Filed: 06/20/21 03:35> <Viviana Miller - Last Filed: 06/28/21 00:02> - General Chief Complaint: Chest Pain Stated Complaint: Chest pain Time Seen by Provider: 06/19/21 19:22 - History of Present Illness Initial Comments: Patient presents with shortness of breath and anterior chest pain. Pain started about 4 hours ago. Patient denies any fever or chills. No productive cough. No abdominal pain. No changes in balance urination. No sore throat or earache. No changes in vision or hearing. No neck pain. No skin rashes or lesions. Patient is not immunized against COVID-19. (Maurisio Kirkpatrick) - Related Data Home Medications Medication Instructions Recorded Confirmed Enoxaparin [Lovenox] 80 mg SQ Q12H 04/01/21 06/19/21 Metoprolol Succinate (ER) [Toprol 25 mg PO BID 06/19/21 06/19/21 XL] Previous Rx's Medication Instructions Recorded Atorvastatin [Lipitor] 80 mg PO DAILY 90 Days #90 tab 04/10/21 Budesonide-Formot 160-4.5 Mcg 1 puff INHALATION RT-BID 30 Days 04/10/21 [Symbicort 160-4.5 Mcg Inhaler] #1 gm Nitroglycerin Sl Tabs [Nitrostat] 0.4 mg SUBLINGUAL ONCE PRN 180 04/10/21 Days #100 tab Spironolactone [Aldactone] 25 mg PO DAILY 90 Days #90 tab 04/10/21 Aspirin 81 mg PO DAILY 06/25/21 Furosemide [Lasix] 60 mg PO BID@0900,1600 30 Days 06/25/21 #180 tab lisinopriL [Zestril] 2.5 mg PO DAILY 30 Days #30 tab 06/25/21 predniSONE [Deltasone] 40 mg PO DAILY 5 Days #5 tab 06/25/21 Allergies Allergy/AdvReac Type Severity Reaction Status Date / Time No Known Allergies Allergy Verified 06/19/21 20:02 Review of Systems ROS Other: All systems not noted in ROS Statement are negative. <Maurisio Kirkpatrick - Last Filed: 06/20/21 03:35> ROS Other: All systems not noted in ROS Statement are negative. <Viviana Miller - Last Filed: 06/28/21 00:02> ROS Statement: Those systems with pertinent positive or pertinent negative responses have been documented in the HPI. EKG Findings - EKG Comments: EKG Findings:: EKG done at [address] elevations of less than 1 box, in V1, V2 were seen on previous study. T changes also on previous. Study. NL intervals, NL axis, rate 133 <Maurisio Kirkpatrick - Last Filed: 06/20/21 03:35> Past Medical History Past Medical History: Heart Failure, COPD, Hyperlipidemia, Hypertension, Myocardial Infarction ([place]), Osteoarthritis (OA), Syncope Additional Past Medical History / Comment(s): DVT L subclavian/surgically removed, nonischemic cardiomyopathy/AICD/pacer in place, past ETOH-no use since 04/2020 Last Myocardial Infarction Date:: 02/25/20 History of Any Multi-Drug Resistant Organisms: None Reported Past Surgical History: AICD, Appendectomy, Cholecystectomy, Heart Catheterization, Pacemaker Additional Past Surgical History / Comment(s): 04/27/21 lap cholecystectomy, L upper extremity venogram/thrombolysis/thrombectomy Past Anesthesia/Blood Transfusion Reactions: No Reported Reaction Type of Cardiac Device: Permanent Pacemaker, AICD Device Placement Date:: 05/01/20 Past Psychological History: No Psychological Hx Reported Smoking Status: Former smoker Past Alcohol Use History: None Reported Past Drug Use History: None Reported - Past Family History Mother Family Medical History: Cancer Additional Family Medical History / Comment(s): Cancer in jaw. Father Family Medical History: COPD <Maurisio Kirkpatrick - Last Filed: 06/20/21 03:35> General Exam Limitations: no limitations General appearance: alert, in distress Head exam: Present: atraumatic, normocephalic, normal inspection Eye exam: Present: normal appearance, PERRL, EOMI. Absent: scleral icterus, conjunctival injection, periorbital swelling ENT exam: Present: normal exam, mucous membranes moist Neck exam: Present: normal inspection. Absent: tenderness, meningismus, lymphadenopathy Respiratory exam: Present: respiratory distress, wheezes, rales, other (Tachypnea with respiratory rate of 30). Absent: rhonchi, stridor Cardiovascular Exam: Present: normal rhythm, tachycardia, normal heart sounds. Absent: systolic murmur, diastolic murmur, rubs, gallop, clicks GI/Abdominal exam: Present: soft, normal bowel sounds. Absent: distended, tenderness, guarding, rebound, rigid Extremities exam: Present: normal inspection, full ROM, normal capillary refill, pedal edema (2+ pitting edema). Absent: tenderness, joint swelling, calf tenderness Back exam: Present: normal inspection Neurological exam: Present: alert, oriented X3, CN II-XII intact Psychiatric exam: Present: normal affect, normal mood Skin exam: Present: warm, dry, intact, normal color. Absent: rash <Maurisio Kirkpatrick - Last Filed: 06/20/21 03:35> - General Exam Comments Initial Comments: 60 year male presents in significant respiratory distress with pursed lip breathing and accessory muscle use. (Maurisio Kirkpatrick) Course <Maurisio Kirkpatrick - Last Filed: 06/20/21 03:35> Vital Signs 06/19/21 06/19/21 06/19/21 19:17 19:30 19:33 Temperature 97.8 F Pulse Rate 81 130 H Respiratory 22 28 H 28 H Rate Blood Pressure 109/67 133/92 O2 Sat by Pulse 97 97 Oximetry 06/19/21 06/19/21 06/19/21 19:57 20:10 20:18 Temperature Pulse Rate 124 H 125 H 125 H Respiratory 28 H 28 H Rate Blood Pressure 95/74 117/88 O2 Sat by Pulse 98 99 Oximetry 06/19/21 06/19/21 06/19/21 20:26 21:00 22:17 Temperature Pulse Rate 125 H 120 H 124 H Respiratory 26 H Rate Blood Pressure 109/88 O2 Sat by Pulse 99 Oximetry 06/19/21 22:28 Temperature Pulse Rate 126 H Respiratory Rate Blood Pressure O2 Sat by Pulse Oximetry - Reevaluation(s) Reevaluation #1: 06/19/21 19:52 Medical record is reviewed Symptoms are essentially unchanged Patient is informed of results and questions answered Patient in no distress (Maurisio Kirkpatrick) Reevaluation #2: 06/19/21 21:53 Medical record is reviewed Symptoms are somewhat improved, patient has more air movement. CHRISTINE wheezing noted throughout on reexamination. Patient's CT shows pleural reaction with mild atelectasis and small right-sided pleural effusion but no evidence of pulmonary embolism. Call made for admission. Patient is informed of results and questions answered Patient in no distress (Maurisio Kirkpatrick) Chest Pain MDM <Maurisio Kirkpatrick - Last Filed: 06/20/21 03:35> <Viviana Miller - Last Filed: 06/28/21 00:02> - MDM The case was discussed in detail with ED attending physician. Presentation, findings, treatment plan discussed in detail.Patient was also seen and assessed by the ED attending physician. Patient will be admitted for CHF and COPD exacerbation. There was no evidence of infectious process. Patient's BNP was higher than usual. There was no evidence of pulmonary embolism on CT of the chest. (Maurisio Kirkpatrick) I was available for consultation in the emergency department. The history and physical exam were done by the midlevel provider. I was consulted for this patients care. I reviewed the case with the midlevel provider and based on their presentation of the patient, I agree with the assessment, medical decision making and plan of care as documented. Chart was dictated using [employer] AI dictation software. Attempts were made to correct any dictation errors however some typographical errors may persist. (Viviana Miller) Critical Care Time Critical Care Time: Yes (Evaluating patient's response to treatment, evaluating diagnostics) Total Critical Care Time: 35 <Maurisio Kirkpatrick - Last Filed: 06/20/21 03:35> Disposition Time of Disposition: 21:54 <Maurisio Kirkpatrick - Last Filed: 06/20/21 03:35> <Viviana Miller - Last Filed: 06/28/21 00:02> Clinical Impression: CHF exacerbation, COPD exacerbation, Recurrent right pleural effusion, Hypomagnesemia Disposition: ADMITTED IP TO THIS HOSP
[2021-06-19 20:02] LABS: Anisocytosis Slight; Basophils % (A) 0 %; Eosinophils # (A) 0.1 k/uL (0-0.7); Eosinophils % (A) 1 %; HCT 39.5 % (39.0-53.0); HGB 12.6 gm/dL (13.0-17.5); Hypochromasia Slight; Lymphocytes # (A) 0.8 k/uL (1.0-4.8); Lymphocytes % (A) 8 %; MCH 29.6 pg (25.0-35.0); MCHC 31.9 g/dL (31.0-37.0); MCV 92.8 fL (80.0-100.0); Mean Platelet Volume 8.4; Monocytes # (A) 0.5 k/uL (0-1.0); Monocytes % (A) 5 %; Neutrophils # (A) 8.5 k/uL (1.3-7.7); Neutrophils % (A) 85 %; Platelet Count 274 k/uL (150-450); RBC 4.25 m/uL (4.30-5.90)
[2021-06-19 20:04] LABS: ABG Base Excess 4.2 mmol/L; ABG HCO3 29 mmol/L (21-25); ABG Oxygen Saturation 97.5 % (94-97); ABG PCO2 45 mmHg (35-45); ABG PH 7.41 (7.35-7.45); ABG PO2 96 mmHg (83-108); ABG TCO2 30 mmol/L (19-24); Allen Test Performed? Yes
[2021-06-19 20:15] LABS: ALT 35 U/L (4-49); AST 28 U/L (17-59); African American GFR (CKD) >90 (>60 ml/min/1.73 sqM); Albumin 3.9 g/dL (3.5-5.0); Alkaline Phosphatase 73 U/L (38-126); Anion Gap 9 mmol/L; Blood Urea Nitrogen 15 mg/dL (9-20); Calcium 8.9 mg/dL (8.4-10.2); Carbon Dioxide 26 mmol/L (22-30); Chloride 102 mmol/L (98-107); Glucose 155 mg/dL (74-99); Magnesium 1.3 mg/dL (1.6-2.3); Non-African American GFR(CKD) >90 (>60 ml/min/1.73 sqM); Potassium 4.1 mmol/L (3.5-5.1); Sodium 137 mmol/L (137-145); Total Protein 6.9 g/dL (6.3-8.2)
[2021-06-19] MEDS ORDERED: MAGNESIUM SULFATE-D5W PMX 1 GM in DEXTROSE/WATER 1 100ML.BAG IVPB ONE ×2 (20:31→21:27)
[2021-06-19] MEDS ORDERED: methylPREDNISolone SOD SUCCI 125 MG/2 ML VIAL IV STA (20:31)
[2021-06-19 20:39] LABS: INR 1.1 (<1.2); Partial Thromboplastin Time 24.7 sec (22.0-30.0); Prothrombin Time 12.2 sec (9.0-12.0)
--- NOTE | 2021-06-19 20:44 | XR ---
EXAMINATION TYPE: XR chest 2V DATE OF EXAM: 06/19/2021 COMPARISON: 04/04/2021 HISTORY: Chest pain TECHNIQUE: FINDINGS: There is no heart failure nor confluent pneumonic infiltrate. Heart appears borderline enla rged. There is left axillary pacemaker. There is no pleural effusion. Thoracic spine is intact. IMPRESSION: Cardiomegaly. No active cardiopulmonary disease. No adverse change.
[2021-06-19] MEDS ORDERED: MORPHINE SULFATE 4 MG/ML SYRINGE IVP STA (20:52)
--- NOTE | 2021-06-19 21:42 | CT ---
EXAMINATION TYPE: CT angio chest DATE OF EXAM: 06/19/2021 COMPARISON: 09/15/2020 HISTORY: Chest pain and dyspnea. CT DLP: 388.6 mGycm Automated exposure control for dose reduction was used. CONTRAST: Performed with IV Contrast, patient injected with 85ml mL of Isovue 370. There are Three-D postprocessed images. There is minimal subsegmental atelectasis at the lung bases. There is no evidence of pneumothorax. Th ere is small left pleural effusion. There is abdominal ascites fluid. Heart appears slightly enlarged . There is no pericardial effusion. There is no evidence of filling defect in the pulmonary arteries. There is no mediastinal adenopathy. Thoracic aorta is intact. There is no aneurysm or dissection. The thoracic spine is intact. No compression fracture. IMPRESSION: Mild pleural reaction and atelectasis left posterior lung base. Small left pleural effusion. Abdomina l ascites. No evidence of pulmonary embolism. Abnormalities appear new compared to old exam. Heart appears incre ased. Congestive heart failure is possible.
[2021-06-19] MEDS ORDERED: AZITHROMYCIN 500 MG TAB PO STA (21:50)
[2021-06-19] MEDS ORDERED: NITROGLYCERIN OINT 1 INCH/GM PACKET TOPICAL STA (21:51)
[2021-06-19] MEDS: FUROSEMIDE 10 MG/ML 4 ML VIAL IV SCH (22:14)
[2021-06-19] MEDS ORDERED: METOPROLOL SUCCINATE (ER) 25 MG TAB.ER.24H PO STA (22:19)
[2021-06-19] MEDS: ENOXAPARIN 80 MG/0.8 ML SYRINGE SQ SCH (23:05)
[2021-06-20] MEDS: INSULIN ASPART (NovoLOG) 100 UNIT/ML VIAL SQ SCH ×5 (00:24→23:38)
[2021-06-20] MEDS: MORPHINE SULFATE 2 MG/ML SYRINGE IVP PRN ×4 (00:44→20:06)
[2021-06-20 04:33] LABS: Glucose,Whole Blood 217 mg/dL (75-99)
[2021-06-20] MEDS: FUROSEMIDE 10 MG/ML 4 ML VIAL IV SCH ×3 (04:36→20:05)
[2021-06-20] MEDS: methylPREDNISolone SOD SUCCI 125 MG/2 ML VIAL IV SCH ×4 (04:36→20:05)
[2021-06-20] MEDS: BUDESONIDE 0.5 MG/2 ML NEBU INHALATION SCH ×2 (08:53→20:26)
[2021-06-20] MEDS: ALBUTEROL NEBULIZED 2.5 MG/3 ML INHALATION PRN (08:53)
[2021-06-20 09:29] LABS: Chol/HDL Ratio 2.55 Ratio; LDL Cholesterol,Calculated 45.3 mg/dL (0.0-131.0); VLDL Calculation 11.94 mg/dL (5.00-40.00)
[2021-06-20] MEDS: ENOXAPARIN 80 MG/0.8 ML SYRINGE SQ SCH ×2 (10:28→20:05)
[2021-06-20] MEDS: AZITHROMYCIN 500 MG TAB PO SCH (10:29)
[2021-06-20] MEDS: ASPIRIN 325 MG TAB PO SCH (10:29)
[2021-06-20] MEDS: METOPROLOL SUCCINATE (ER) 25 MG TAB.ER.24H PO SCH ×2 (10:29→20:06)
[2021-06-20 11:47] LABS: Glucose,Whole Blood 168 mg/dL (75-99)
[2021-06-20] MEDS: IPRATROPIUM-ALBUTEROL 3 ML NEB INHALATION PRN ×2 (12:01→15:26)
--- NOTE | 2021-06-20 13:10 | HP ---
HISTORY AND PHYSICAL 60-year-old white male came to the hospital with increasing shortness of breath. Diagnosed with CHF and COPD in the emergency room, was started on steroids and Lasix. He has no productive cough. No change in vision. No skin rashes. He has a cough, worse with inspiration. Home medications reviewed. ALLERGIES: Negative. REVIEW OF SYMPTOMS: 14 point review of systems negative except for shortness of breath with exertion, mild PND and orthopnea. Otherwise negative. EKG no changes from prior. PAST MEDICAL HISTORY: See chart. He has cardiomyopathy, AICD, COPD, environmental toxin exposure, gout. PAST SURGICAL HISTORY: Surgical list: Please see orders and list reviewed. FAMILY HISTORY: Reviewed. See orders. PHYSICAL EXAMINATION: He has pursed lip breathing. Some mild accessory use. CARDIOVASCULAR: S1, S2. LUNGS: Scattered rhonchi and wheeze HEMATOLOGIC: 2+ edema. GI soft, distended. OPHTHALMOLOGIC: Pupils equal, round, reactive. PSYCH: Fair mood and affect. NEUROLOGIC: Alert and oriented x3. Pulse rate is in the 120s, blood pressure is 109/88, respiratory rate 25-30, temp 97.8. ASSESSMENT AND PLAN: 1. Acute systolic congestive heart failure acute on chronic exacerbation with chronic obstructive pulmonary disease exacerbation. BNP was higher than usual. 2. Negative for pulmonary embolism on CT scan. 3. IV Lasix, IV steroids. 4. Prognosis guarded. 5. Replace electrolytes. 6. Wait for Cardiology. MMAREN / CURTIS: [id number] /
--- NOTE | 2021-06-20 13:23 | P.CRDCN ---
History of Present Illness History of present illness: 60-year-old gentleman with history of severe COPD chronic systolic heart failure nonischemic cardiomyopathy status post AICD presents to hospital with progressively worsening shortness of breath leg edema and weight gain and also complains of chest discomfort. His chest pain is mild intensity sharp pericardial seems musculoskeletal. Patient underwent cardiac catheterization in 2019 that did not reveal significant CAD. He has severe LV systolic dysfunction with ejection fraction less than 30% and underwent an AICD. His clinical presentation is consistent with acute exacerbation of chronic systolic heart failure and COPD exacerbation. BNP is elevated over 11,000. Troponins have been negative. Patient will be treated with intravenous diuretics continue the beta blockers and try a small dose of SAEED inhibitor. Constitutional: Denies chills. Denies fever. Eyes: Denies blurred vision. Denies pain. Ears, nose, mouth and throat: Denies headache. Denies sore throat. Cardiovascular: Significant for chest pain and shortness of breath Respiratory: Denies cough. Gastrointestinal: Denies abdominal pain. Denies diarrhea. Denies nausea. Denies vomiting. Musculoskeletal: Denies myalgias. Integumentary: Denies pruritus. Denies rash. Neurological: Denies numbness. Denies weakness. Psychiatric: Denies anxiety. Denies depression. Endocrine: Denies fatigue. Denies weight change. Genitourinary: Denies burning, hematuria, frequency of urination. Hematological: No anemia or excess bleeding. General: The patient is awake and alert, in no distress, and does not appear acutely ill. Skin: Skin is warm and dry and no rashes or lesions are noted. Eye: Pupils are equal, round and reactive to light, extra-ocular movements are intact; there is normal conjunctiva bilaterally. Ears, nose, mouth and throat: There are moist mucous membranes and no oral lesions. Neck: The neck is supple, there is no tenderness or JVD. Cardiovascular: There is a regular rate and rhythm. No murmur, rub or gallop is appreciated. Respiratory: Diminished air entry bilaterally and severe bilateral rhonchi al. Gastrointestinal: Soft, non-distended, non-tender abdomen without masses or organomegaly noted. There is no rebound or guarding present. Bowel sounds are unremarkable. Back: There is no tenderness to palpation in the midline. There is no obvious deformity. Musculoskeletal: Normal ROM, no tenderness, There is no pedal edema. There is no calf tenderness or swelling. Extremities: Moderate bilateral leg edema Vascular: Femoral pulse is normal. Posterior tibial pulses are normal .Dorsalis pedis is palpable. Neurological: CN II-XII intact. There are no obvious motor or sensory deficits. Speech is normal. Psychiatric: Cooperative, appropriate mood & affect, normal judgment. EKG shows sinus tachycardia with nonspecific ST-T wave changes 2 sets of troponins are negative Creatinine is normal Assessment and plan: Acute exacerbation of chronic systolic heart failure COPD exacerbation Nonischemic cardiomyopathy status post AICD Patient will be treated with IV Lasix beta blockers and saeed inhibitors Past Medical History Past Medical History: Heart Failure, COPD, Hyperlipidemia, Hypertension, Myocardial Infarction ([place]), Osteoarthritis (OA), Syncope Additional Past Medical History / Comment(s): DVT L subclavian/surgically removed, nonischemic cardiomyopathy/AICD/pacer in place, past ETOH-no use since 04/2020 Last Myocardial Infarction Date:: 02/25/20 History of Any Multi-Drug Resistant Organisms: None Reported Past Surgical History: AICD, Appendectomy, Cholecystectomy, Heart Catheterization, Pacemaker Additional Past Surgical History / Comment(s): 04/27/21 lap cholecystectomy, L upper extremity venogram/thrombolysis/thrombectomy Past Anesthesia/Blood Transfusion Reactions: No Reported Reaction Type of Cardiac Device: Permanent Pacemaker, AICD Device Placement Date:: 05/01/20 Past Psychological History: No Psychological Hx Reported Smoking Status: Former smoker Past Alcohol Use History: None Reported Past Drug Use History: None Reported - Past Family History Mother Family Medical History: Cancer Additional Family Medical History / Comment(s): Cancer in jaw. Father Family Medical History: COPD Medications and Allergies Home Medications Medication Instructions Recorded Confirmed Type Enoxaparin [Lovenox] 80 mg SQ Q12H 04/01/21 06/19/21 History Furosemide [Lasix] 40 mg PO BID 04/01/21 06/19/21 History Atorvastatin [Lipitor] 80 mg PO DAILY 90 Days #90 tab 04/10/21 06/19/21 Rx Budesonide-Formot 160-4.5 Mcg 1 puff INHALATION RT-BID 30 Days 04/10/21 06/19/21 Rx [Symbicort 160-4.5 Mcg Inhaler] #1 gm Nitroglycerin Sl Tabs [Nitrostat] 0.4 mg SUBLINGUAL ONCE PRN 180 04/10/21 06/19/21 Rx Days #100 tab Spironolactone [Aldactone] 25 mg PO DAILY 90 Days #90 tab 04/10/21 06/19/21 Rx Metoprolol Succinate (ER) [Toprol 25 mg PO BID 06/19/21 06/19/21 History Xl] Allergies Allergy/AdvReac Type Severity Reaction Status Date / Time No Known Allergies Allergy Verified 06/19/21 20:02 Physical Exam Vitals: Vital Signs Temp Pulse Pulse Resp BP BP Pulse Ox 06/20/21 12:12 88 18 06/20/21 12:04 98.5 F 70 19 99/71 94 L 06/20/21 12:01 84 18 06/20/21 10:25 98 F 83 16 94/58 95 06/20/21 09:09 77 18 06/20/21 08:53 68 18 95 06/20/21 04:00 60 16 112/73 95 06/20/21 00:00 97.9 F 89 20 105/72 96 06/19/21 23:55 118 H 24 123/71 97 06/19/21 22:28 126 H 06/19/21 22:17 124 H 06/19/21 21:00 120 H 26 H 109/88 99 06/19/21 20:26 125 H 06/19/21 20:18 125 H 28 H 117/88 99 06/19/21 20:10 125 H 06/19/21 19:57 124 H 28 H 95/74 98 06/19/21 19:33 28 H 06/19/21 19:30 130 H 28 H 133/92 97 06/19/21 19:17 97.8 F 81 22 109/67 97 Intake and Output 06/19/21 06/20/21 06/20/21 21:59 06:59 14:59 Intake Total 240 Balance 240 Intake: Oral 240 Other: Voiding Method Toilet # Voids Weight Results 06/19/21 19:41 06/19/21 19:41 Cardiac Enzymes 06/19/21 06/19/21 06/19/21 Range/Units 19:41 19:41 23:12 AST 28 (17-59) U/L Troponin I 0.025 0.022 (0.000-0.034) ng/mL 06/20/21 Range/Units 01:22 AST (17-59) U/L Troponin I 0.022 (0.000-0.034) ng/mL Coagulation 06/19/21 Range/Units 19:41 PT 12.2 H (9.0-12.0) sec APTT 24.7 (22.0-30.0) sec Lipids 06/19/21 Range/Units 23:12 Triglycerides 59.70 (0.00-149.00) mg/dL Cholesterol 94.00 (0.00-200.00) mg/dL HDL Cholesterol 36.80 L (40.00-60.00) mg/dL Cholesterol/HDL Ratio 2.55 Ratio CBC 06/19/21 Range/Units 19:41 WBC 10.0 (3.8-10.6) k/uL RBC 4.25 L (4.30-5.90) m/uL Hgb 12.6 L (13.0-17.5) gm/dL Hct 39.5 (39.0-53.0) % Plt Count 274 (150-450) k/uL Comprehensive Metabolic Panel 06/19/21 Range/Units 19:41 Sodium 137 (137-145) mmol/L Potassium 4.1 (3.5-5.1) mmol/L Chloride 102 (98-107) mmol/L Carbon Dioxide 26 (22-30) mmol/L BUN 15 (9-20) mg/dL Creatinine 0.80 (0.66-1.25) mg/dL Glucose 155 H (74-99) mg/dL Calcium 8.9 (8.4-10.2) mg/dL AST 28 (17-59) U/L ALT 35 (4-49) U/L Alkaline Phosphatase 73 (38-126) U/L Total Protein 6.9 (6.3-8.2) g/dL Albumin 3.9 (3.5-5.0) g/dL Current Medications Generic Name Dose Route Start Last Admin Trade Name Freq PRN Reason Stop Dose Admin Albuterol Sulfate 2.5 mg 06/19/21 22:06 06/20/21 08:53 Albuterol Nebulized 2.5 Mg/3 Ml INHALATION 2.5 mg Q2H PRN Administration Dyspnea Albuterol/Ipratropium 3 ml 06/19/21 22:06 06/20/21 12:01 Ipratropium-Albuterol 3 Ml Neb INHALATION 3 ml RT-Q4H PRN Administration Shortness Of Breath Or Wheezing Aspirin 325 mg 06/20/21 09:00 06/20/21 10:29 Aspirin 325 Mg Tab PO 325 mg DAILY GONZÁLEZ Administration Azithromycin 500 mg 06/20/21 09:00 06/20/21 10:29 Azithromycin 500 Mg Tab PO 06/23/21 09:01 500 mg DAILY GONZÁLEZ Administration Budesonide 0.5 mg 06/20/21 08:00 06/20/21 08:53 Budesonide 0.5 Mg/2 Ml Nebu INHALATION 0.5 mg RT-BID GONZÁLEZ Administration Enoxaparin Sodium 70 mg 06/19/21 22:15 06/20/21 10:28 Enoxaparin 80 Mg/0.8 Ml Syringe SQ 70 mg BID GONZÁLEZ Administration Furosemide 40 mg 06/19/21 22:00 06/20/21 12:05 Furosemide 10 Mg/Ml 4 Ml Vial IV 40 mg Q8H GONZÁLEZ Administration Insulin Aspart 0 unit 06/19/21 22:15 06/20/21 12:04 Insulin Aspart (Novolog) 100 Unit/Ml Vial SQ 2 unit Q6H GONZÁLEZ Administration Protocol Lisinopril 2.5 mg 06/20/21 13:30 Lisinopril 2.5 Mg Tab PO DAILY [facility] Methylprednisolone Sodium Succinate 60 mg 06/20/21 04:00 06/20/21 10:28 Methylprednisolone Sod Succi 125 Mg/2 Ml Vial IV 60 mg Q6H GONZÁLEZ Administration Metoprolol Succinate 25 mg 06/20/21 09:00 06/20/21 10:29 Metoprolol Succinate (Er) 25 Mg Tab.Er.24h PO 25 mg BID GONZÁLEZ Administration Morphine Sulfate 2 mg 06/20/21 00:31 06/20/21 10:34 Morphine Sulfate 2 Mg/Ml Syringe IVP 2 mg Q4HR PRN Administration Pain/Discomfort Intake and Output 06/19/21 06/20/21 06/20/21 21:59 06:59 14:59 Intake Total 240 Balance 240 Intake: Oral 240 Other: Voiding Method Toilet # Voids Weight 06/19/21 19:41 06/19/21 19:41
--- NOTE | 2021-06-20 13:26 | US ---
EXAMINATION TYPE: US abdomen limited DATE OF EXAM: 06/20/2021 COMPARISON: NONE CLINICAL HISTORY: ascites. Minimal to mild ascites. IMPRESSION: Limited study performed of the abdomen for free fluid. There is minimal ascites in the r ight lower quadrant of the abdomen only.
[2021-06-20 13:43] LABS: Albumin 3.8 g/dL (3.5-5.0); Calcium 8.8 mg/dL (8.4-10.2); Potassium 4.5 mmol/L (3.5-5.1); Total Bilirubin 1.2 mg/dL (0.2-1.3); Total Protein 6.8 g/dL (6.3-8.2)
[2021-06-20] MEDS ORDERED: DILTIAZEM DRIP BOLUS FROM BAG 1 MG SOLN IV ONE (16:10)
[2021-06-20] MEDS ORDERED: DILTIAZEM 125 MG in SODIUM CHLORIDE 0.9% 100 ML IV SCH (16:30)
[2021-06-20 16:59] LABS: Glucose,Whole Blood 171 mg/dL (75-99)
[2021-06-20 23:19] LABS: Glucose,Whole Blood 171 mg/dL (75-99)
[2021-06-21 05:11] LABS: Glucose,Whole Blood 138 mg/dL (75-99)
[2021-06-21] MEDS: INSULIN ASPART (NovoLOG) 100 UNIT/ML VIAL SQ SCH ×3 (05:11→18:58)
[2021-06-21] MEDS: FUROSEMIDE 10 MG/ML 4 ML VIAL IV SCH ×3 (05:17→21:17)
[2021-06-21] MEDS: MORPHINE SULFATE 2 MG/ML SYRINGE IVP PRN ×4 (05:17→21:19)
[2021-06-21] MEDS: methylPREDNISolone SOD SUCCI 125 MG/2 ML VIAL IV SCH ×4 (05:17→21:17)
[2021-06-21 07:52] LABS: Albumin 3.4 g/dL (3.5-5.0); Calcium 8.5 mg/dL (8.4-10.2); Potassium 4.5 mmol/L (3.5-5.1); Total Bilirubin 0.6 mg/dL (0.2-1.3); Total Protein 6.5 g/dL (6.3-8.2)
--- NOTE | 2021-06-21 09:53 | P.PN ---
Subjective Progress Note Date: 06/21/21 Principal diagnosis: Heart failure with reduced ejection fraction This is a 60-year-old gentleman with known nonischemic cardiomyopathy as well as chronic obstructive pulmonary disease was admitted to the hospital with increasing shortness of breath and bilateral lower extremities edema and he was diagnosed with heart failure exacerbation. He was seen this morning. He continues to have shortness of breath. He still have bilateral lower extremities edema. He has no chest pain or chest discomfort. He did have an episode of atrial flutter for brief period and subsequently he is converted to normal sinus mechanism. He is on low molecular weight heparin for anticoagulation for history of DVT according to home. In the past he received oral anticoagulation according to him as well. Objective - Vital Signs Vital signs: Vital Signs Temp 98.0 F 06/21/21 04:00 Pulse 80 06/21/21 04:00 Resp 18 06/21/21 04:00 BP 98/62 06/21/21 04:00 Pulse Ox 95 06/21/21 04:00 Intake & Output 06/20/21 06/21/21 06/21/21 18:59 06:59 18:59 Intake Total 1090 240 Output Total 950 Balance 1090 -950 240 Weight 78.1 kg Intake: Oral 1090 240 Output: Urine 950 Other: Voiding Method Toilet Toilet # Voids 3 - Constitutional General appearance: Present: no acute distress - Respiratory Respiratory: bilateral: diminished - Cardiovascular Rhythm: regular Heart sounds: normal: S1, S2 - Labs CBC & Chem 7: 06/19/21 19:41 06/21/21 06:38 Labs: Abnormal Lab Results - Last 24 Hours (Table) 06/20/21 06/20/21 06/20/21 Range/Units 11:46 12:57 16:58 Sodium (137-145) mmol/L BUN 26 H (9-20) mg/dL Glucose 161 H (74-99) mg/dL POC Glucose (mg/dL) 168 H 171 H (75-99) mg/dL Albumin (3.5-5.0) g/dL 06/20/21 06/21/21 06/21/21 Range/Units 23:17 05:10 06:38 Sodium 136 L (137-145) mmol/L BUN 35 H (9-20) mg/dL Glucose 148 H (74-99) mg/dL POC Glucose (mg/dL) 171 H 138 H (75-99) mg/dL Albumin 3.4 L (3.5-5.0) g/dL Assessment and Plan Assessment: Assessment #1 heart failure exacerbation secondary to heart failure with reduced ejection fraction #2 paroxysmal atrial fibrillation #3 chronic obstructive pulmonary disease #4 cardiomyopathy, nonischemic Plan #1 continue IV diuretics for additional 24 hours #2 continue monitor the kidney function and electrolytes #3 continue Lovenox for anticoagulation #4 follow-up with the patient
[2021-06-21] MEDS: ENOXAPARIN 80 MG/0.8 ML SYRINGE SQ SCH ×2 (09:57→21:18)
[2021-06-21] MEDS: AZITHROMYCIN 500 MG TAB PO SCH (09:58)
[2021-06-21] MEDS: ASPIRIN 325 MG TAB PO SCH (09:58)
[2021-06-21] MEDS: METOPROLOL SUCCINATE (ER) 25 MG TAB.ER.24H PO SCH ×2 (10:00→21:18)
[2021-06-21] MEDS: BUDESONIDE 0.5 MG/2 ML NEBU INHALATION SCH ×2 (11:03→19:25)
[2021-06-21 11:56] LABS: Glucose,Whole Blood 155 mg/dL (75-99)
[2021-06-21] MEDS: IPRATROPIUM-ALBUTEROL 3 ML NEB INHALATION PRN ×2 (12:25→17:06)
--- NOTE | 2021-06-21 13:57 | PN ---
PROGRESS NOTE This patient was admitted with COPD and congestive heart failure and tracheobronchitis. He is responding with updraft treatments and steroids. He will have to be checked out for sleep apnea as an outpatient. He is on low molecular weight heparin for anticoagulation for history of upper extremity DVT in the past. Pulse 80, respiratory rate 16 to 18, blood pressure 90s over 60s, O2 95. Cardiovascular S1, S2. Lungs with diminished rales at the base. He has no acute distress. Psych fair mood and affect. Hemoglobin 12.6, white count 10. Sodium 136, potassium 4.5. Sugars in 100s. ASSESSMENT: 1. Heart failure. Exacerbation secondary to heart failure with reduced ejection fraction. 2. Paroxysmal atrial fibrillation. 3. Chronic obstructive pulmonary disease. 4. Nonischemic cardiomyopathy. 5. Tracheobronchitis. Continue with IV diuretics. Monitor renal function. Lovenox. Steroids. Updrafts. Prognosis good. Follow up in the next 24 to 48 hours for possible discharge. MMODL / IJN: [id number] /
[2021-06-21 14:51] VITALS: BMI 27.8
[2021-06-21] MEDS: ALBUTEROL NEBULIZED 2.5 MG/3 ML INHALATION PRN (19:25)
[2021-06-22 00:17] LABS: Glucose,Whole Blood 164 mg/dL (75-99)
[2021-06-22] MEDS: INSULIN ASPART (NovoLOG) 100 UNIT/ML VIAL SQ SCH ×5 (00:22→23:06)
[2021-06-22] MEDS: MORPHINE SULFATE 2 MG/ML SYRINGE IVP PRN ×4 (03:19→23:05)
[2021-06-22 05:26] LABS: Glucose,Whole Blood 134 mg/dL (75-99)
[2021-06-22] MEDS: FUROSEMIDE 10 MG/ML 4 ML VIAL IV SCH ×3 (05:33→21:02)
[2021-06-22] MEDS: methylPREDNISolone SOD SUCCI 125 MG/2 ML VIAL IV SCH ×4 (05:33→21:02)
[2021-06-22] MEDS: BUDESONIDE 0.5 MG/2 ML NEBU INHALATION SCH ×2 (07:43→20:07)
[2021-06-22] MEDS: AZITHROMYCIN 500 MG TAB PO SCH (08:57)
[2021-06-22] MEDS: ASPIRIN 325 MG TAB PO SCH (08:57)
[2021-06-22] MEDS: METOPROLOL SUCCINATE (ER) 25 MG TAB.ER.24H PO SCH ×2 (08:57→21:02)
[2021-06-22] MEDS: ENOXAPARIN 80 MG/0.8 ML SYRINGE SQ SCH ×2 (08:58→21:02)
[2021-06-22] MEDS: ALBUTEROL NEBULIZED 2.5 MG/3 ML INHALATION PRN (11:19)
[2021-06-22 12:10] LABS: Glucose,Whole Blood 135 mg/dL (75-99)
[2021-06-22 12:25] LABS: African American GFR (CKD) >90 (>60 ml/min/1.73 sqM); Anion Gap 7 mmol/L; Blood Urea Nitrogen 40 mg/dL (9-20); Carbon Dioxide 26 mmol/L (22-30); Chloride 105 mmol/L (98-107); Glucose 118 mg/dL (74-99); Non-African American GFR(CKD) 79 (>60 ml/min/1.73 sqM); Potassium 4.7 mmol/L (3.5-5.1); Sodium 138 mmol/L (137-145)
--- NOTE | 2021-06-22 15:01 | P.PN ---
Subjective 60-year-old gentleman with history of severe COPD, chronic heart failure stage D, nonischemic cardiomyopathy status post AICD. Patient follows in the office with Dr. Thomas. Patient presents to hospital with progressively worsening shortness of breath leg edema and weight gain and also complains of chest discomfort. Patient underwent cardiac catheterization in 2019 that did not reveal significant CAD. He has severe LV systolic dysfunction with ejection fraction less than 30% and underwent an AICD. His clinical presentation is consistent with acute exacerbation of chronic systolic heart failure and COPD exacerbation. Patient treated with intravenous diuretics, beta shahram, and low dose ACEI. Patient seen at bedside, no acute distress. He continues to be short of breath. He's currently maintained on IV Lasix 40 mg every 8 hours, aspirin 80 mg daily, lisinopril 2.5 mg daily and metoprolol succinate 25 mg twice a day. Patient with 1.3L urine output over the past 24 hours. Blood pressures are stable. Patient maintaining sinus mechanism. Vitals reviewed GENERAL: In no acute distress. NECK: Supple without JVD LUNGS: Breath sounds crackles to auscultation bilaterally. Respiration equal and unlabored. No wheezes, rales or rhonchi. HEART: Regular rate and rhythm without murmurs, rubs or gallops. S1 and S2 heard. EXTREMITIES: Normal range of motion, no edema. No clubbing or cyanosis. Peripheral pulses intact. ASSESSMENT Heart failure with reduced ejection fraction COPD Nonischemic cardiomyopathy status post AICD PLAN Continue IV diuretics for additional 24 hours Continue monitor the kidney function and electrolytes, I/Os, daily weights Continue aspirin, lisinopril, metoprolol succinate. Further recommendations based on clinical course Nurse Practitioner note has been reviewed, I agree with a documented findings and plan of care. Patient was seen and examined. Objective - Vital Signs Vital signs: Vital Signs Temp 98.0 F 06/22/21 12:00 Pulse 85 06/22/21 12:00 Resp 19 06/22/21 14:00 BP 114/73 06/22/21 12:00 Pulse Ox 97 06/22/21 12:00 Intake & Output 06/21/21 06/22/21 06/22/21 18:59 06:59 18:59 Intake Total 838 Output Total 1000 300 Balance -162 -300 Weight 78.1 kg 77.7 kg Intake: Oral 838 Output: Urine 1000 300 Other: Voiding Method Toilet Toilet Toilet - Labs CBC & Chem 7: 06/19/21 19:41 06/22/21 11:20 Labs: Abnormal Lab Results - Last 24 Hours (Table) 06/22/21 06/22/21 06/22/21 Range/Units 00:15 05:24 11:20 BUN 40 H (9-20) mg/dL Glucose 118 H (74-99) mg/dL POC Glucose (mg/dL) 164 H 134 H (75-99) mg/dL 06/22/21 Range/Units 12:07 BUN (9-20) mg/dL Glucose (74-99) mg/dL POC Glucose (mg/dL) 135 H (75-99) mg/dL
[2021-06-22] MEDS: IPRATROPIUM-ALBUTEROL 3 ML NEB INHALATION PRN ×2 (15:47→20:07)
[2021-06-22 17:05] LABS: Glucose,Whole Blood 166 mg/dL (75-99)
--- NOTE | 2021-06-22 18:32 | P.CNPUL ---
History of Present Illness Consult date: 06/22/21 Reason for consult: dyspnea, cough, hypoxemia Chief complaint: Shortness of breath with cough History of present illness: Patient is a 60-year-old male came into the hospital with increasing shortness breath and chest pain started 4 days prior to coming to the hospital, denies any fever or chills cough is dry and nonproductive, denies any dizziness lightheadedness loss of consciousness hemiparesis, no night sweats fever or chills, chest x-ray in the emergency department unremarkable no active process identified, computed tomography scan of the chest noted to have left basal atelectasis as well as left pleural effusion ascites in the abdomen however is noted. Review of Systems All systems: negative Past Medical History Past Medical History: Heart Failure, COPD, Hyperlipidemia, Hypertension, Myocardial Infarction (AL), Osteoarthritis (OA), Syncope Additional Past Medical History / Comment(s): DVT L subclavian/surgically removed, nonischemic cardiomyopathy/AICD/pacer in place, past ETOH-no use since 04/2020 Last Myocardial Infarction Date:: 02/25/20 History of Any Multi-Drug Resistant Organisms: None Reported Past Surgical History: AICD, Appendectomy, Cholecystectomy, Heart Catheterization, Pacemaker Additional Past Surgical History / Comment(s): 04/27/21 lap cholecystectomy, L upper extremity venogram/thrombolysis/thrombectomy Past Anesthesia/Blood Transfusion Reactions: No Reported Reaction Type of Cardiac Device: Permanent Pacemaker, AICD Device Placement Date:: 05/01/20 Past Psychological History: No Psychological Hx Reported Smoking Status: Former smoker Past Alcohol Use History: None Reported Past Drug Use History: None Reported - Past Family History Mother Family Medical History: Cancer Additional Family Medical History / Comment(s): Cancer in jaw. Father Family Medical History: COPD Medications and Allergies Home Medications Medication Instructions Recorded Confirmed Type Enoxaparin [Lovenox] 80 mg SQ Q12H 04/01/21 06/19/21 History Furosemide [Lasix] 40 mg PO BID 04/01/21 06/19/21 History Atorvastatin [Lipitor] 80 mg PO DAILY 90 Days #90 tab 04/10/21 06/19/21 Rx Budesonide-Formot 160-4.5 Mcg 1 puff INHALATION RT-BID 30 Days 04/10/21 06/19/21 Rx [Symbicort 160-4.5 Mcg Inhaler] #1 gm Nitroglycerin Sl Tabs [Nitrostat] 0.4 mg SUBLINGUAL ONCE PRN 180 04/10/21 06/19/21 Rx Days #100 tab Spironolactone [Aldactone] 25 mg PO DAILY 90 Days #90 tab 04/10/21 06/19/21 Rx Metoprolol Succinate (ER) [Toprol 25 mg PO BID 06/19/21 06/19/21 History Xl] Allergies Allergy/AdvReac Type Severity Reaction Status Date / Time No Known Allergies Allergy Verified 06/19/21 20:02 Physical Exam Vitals: Vital Signs Temp Pulse Pulse Resp BP BP Pulse Ox 06/22/21 16:00 97.7 F 86 84 18 99/64 97 06/22/21 15:49 90 06/22/21 14:00 19 06/22/21 12:00 98.0 F 85 19 114/73 97 06/22/21 11:28 84 06/22/21 11:19 80 06/22/21 08:00 97.9 F 85 19 142/75 96 06/22/21 04:00 97.5 F L 85 16 113/79 94 L 06/22/21 02:00 82 16 06/22/21 00:00 97.9 F 82 16 98/66 95 06/21/21 19:46 83 16 06/21/21 19:42 86 06/21/21 19:39 97.1 F L 83 16 103/58 95 06/21/21 19:25 84 93 L Intake and Output 06/22/21 06/22/21 06/22/21 06:59 14:59 22:59 Other: Voiding Method Toilet Toilet Weight 77.7 kg - Constitutional General appearance: average body habitus, disheveled - EENT Eyes: EOMI, PERRLA Ears: bilateral: normal - Neck Carotids: bilateral: upstroke normal - Respiratory Respiratory: bilateral: diminished, wheezing - Cardiovascular Rhythm: regular Heart sounds: normal: S1, S2 - Gastrointestinal General gastrointestinal: decreased bowel sounds - Integumentary Integumentary: normal turgor - Neurologic Neurologic: CNII-XII intact - Musculoskeletal Musculoskeletal: gait normal, generalized weakness, strength equal bilaterally - Psychiatric Psychiatric: A&O x's 3, appropriate affect, intact judgment & insight Results - Laboratory Findings CBC and BMP: 06/19/21 19:41 06/22/21 11:20 ABG ABG pH 7.41 (7.35-7.45) 06/19/21 20:01 ABG pCO2 45 mmHg (35-45) 06/19/21 20:01 ABG pO2 96 mmHg (83-108) 06/19/21 20:01 ABG O2 Saturation 97.5 % (94-97) H 06/19/21 20:01 PT/INR, D-dimer PT 12.2 sec (9.0-12.0) H 06/19/21 19:41 INR 1.1 (<1.2) 06/19/21 19:41 D-Dimer 1.57 mg/L FEU (<0.60) H 06/19/21 19:41 Abnormal lab findings: Abnormal Labs 06/19/21 06/19/21 06/19/21 19:41 19:41 19:41 RBC 4.25 L Hgb 12.6 L RDW 16.0 H Neutrophils # 8.5 H Lymphocytes # 0.8 L PT 12.2 H D-Dimer 1.57 H ABG HCO3 ABG Total CO2 ABG O2 Saturation Sodium BUN Glucose 155 H POC Glucose (mg/dL) Magnesium 1.3 L Total Bilirubin 2.0 H Albumin HDL Cholesterol 06/19/21 06/19/21 06/20/21 20:01 23:12 04:31 RBC Hgb RDW Neutrophils # Lymphocytes # PT D-Dimer ABG HCO3 29 H ABG Total CO2 30 H ABG O2 Saturation 97.5 H Sodium BUN Glucose POC Glucose (mg/dL) 217 H Magnesium Total Bilirubin Albumin HDL Cholesterol 36.80 L 06/20/21 06/20/21 06/20/21 11:46 12:57 16:58 RBC Hgb RDW Neutrophils # Lymphocytes # PT D-Dimer ABG HCO3 ABG Total CO2 ABG O2 Saturation Sodium BUN 26 H Glucose 161 H POC Glucose (mg/dL) 168 H 171 H Magnesium Total Bilirubin Albumin HDL Cholesterol 06/20/21 06/21/21 06/21/21 23:17 05:10 06:38 RBC Hgb RDW Neutrophils # Lymphocytes # PT D-Dimer ABG HCO3 ABG Total CO2 ABG O2 Saturation Sodium 136 L BUN 35 H Glucose 148 H POC Glucose (mg/dL) 171 H 138 H Magnesium Total Bilirubin Albumin 3.4 L HDL Cholesterol 06/21/21 06/22/21 06/22/21 11:53 00:15 05:24 RBC Hgb RDW Neutrophils # Lymphocytes # PT D-Dimer ABG HCO3 ABG Total CO2 ABG O2 Saturation Sodium BUN Glucose POC Glucose (mg/dL) 155 H 164 H 134 H Magnesium Total Bilirubin Albumin HDL Cholesterol 06/22/21 06/22/21 06/22/21 11:20 12:07 17:00 RBC Hgb RDW Neutrophils # Lymphocytes # PT D-Dimer ABG HCO3 ABG Total CO2 ABG O2 Saturation Sodium BUN 40 H Glucose 118 H POC Glucose (mg/dL) 135 H 166 H Magnesium Total Bilirubin Albumin HDL Cholesterol - Diagnostic Findings Chest x-ray: report reviewed, image reviewed Assessment and Plan Assessment: Acute COPD exacerbation Tracheobronchitis Chronic systolic heart failure with development of progressive anasarca Abdominal ascites Nonischemic cardiomyopathy Plan: Bronchodilator Supplemental oxygen IV steroids Broad-spectrum antibiotics Continue anticoagulation Optimize therapy for heart failure with diuretic afterload reducing agent SAEED inhibitor We'll follow closely Time with Patient: Greater than 30
--- NOTE | 2021-06-22 21:47 | P.PN ---
Progress Note - Text Progress Note Date: 06/22/21 Presenting complaint: Shortness of breath Hospital course: I'm rounding for Dr. Felix Burgos 60-year-old gentleman with history of severe COPD, chronic heart failure stage D, nonischemic cardiomyopathy status post AICD. Patient follows in the office with Dr. Thomas. Patient presents to hospital with progressively worsening shortness of breath leg edema and weight gain and also complains of chest discomfort. Patient underwent cardiac catheterization in 2019 that did not reveal significant CAD. He has severe LV systolic dysfunction with ejection fraction less than 30% and underwent an AICD. His clinical presentation is consistent with acute exacerbation of chronic systolic heart failure and COPD exacerbation. Patient treated with intravenous diuretics, beta shahram, and low dose ACEI. June 22: Breathing a bit better. Oral intake good. Some edema. On IV Lasix 40 mg daily. Negative fluid balance. Active Medications Albuterol Sulfate (Albuterol Nebulized 2.5 Mg/3 Ml) 2.5 mg INHALATION Q2H PRN PRN Reason: Dyspnea Last Admin: 06/22/21 11:19 Dose: 2.5 mg Documented by: Albuterol/Ipratropium (Ipratropium-Albuterol 3 Ml Neb) 3 ml INHALATION RT-Q4H PRN PRN Reason: Shortness Of Breath Or Wheezing Last Admin: 06/22/21 20:07 Dose: 3 ml Documented by: Aspirin (Aspirin 81 Mg) 81 mg PO DAILY [facility] Azithromycin (Azithromycin 500 Mg Tab) 500 mg PO DAILY [facility] Stop: 06/23/21 09:01 Last Admin: 06/22/21 08:57 Dose: 500 mg Documented by: Budesonide (Budesonide 0.5 Mg/2 Ml Nebu) 0.5 mg INHALATION RT-BID [facility] Last Admin: 06/22/21 20:07 Dose: 0.5 mg Documented by: Enoxaparin Sodium (Enoxaparin 80 Mg/0.8 Ml Syringe) 70 mg SQ BID [facility] Last Admin: 06/22/21 21:02 Dose: 70 mg Documented by: Furosemide (Furosemide 10 Mg/Ml 4 Ml Vial) 40 mg IV Q8H [facility] Last Admin: 06/22/21 21:02 Dose: 40 mg Documented by: Insulin Aspart (Insulin Aspart (Novolog) 100 Unit/Ml Vial) 0 unit SQ Q6H [facility]; Protocol Last Admin: 06/22/21 17:40 Dose: 2 unit Documented by: Lisinopril (Lisinopril 2.5 Mg Tab) 2.5 mg PO DAILY [facility] Last Admin: 06/22/21 08:57 Dose: 2.5 mg Documented by: Methylprednisolone Sodium Succinate (Methylprednisolone Sod Succi 125 Mg/2 Ml Vial) 60 mg IV Q6H [facility] Last Admin: 06/22/21 21:02 Dose: 60 mg Documented by: Metoprolol Succinate (Metoprolol Succinate (Er) 25 Mg Tab.Er.24h) 25 mg PO BID [facility] Last Admin: 06/22/21 21:02 Dose: 25 mg Documented by: Morphine Sulfate (Morphine Sulfate 2 Mg/Ml Syringe) 2 mg IVP Q4HR PRN PRN Reason: Pain/Discomfort Last Admin: 06/22/21 17:40 Dose: 2 mg Documented by: On examination: VITAL SIGNS: 99.1, 85, 18, 111/69, 93% room air GENERAL APPEARANCE: Reclining in bed, awake, tired. HEENT: Normal external appearance of nose and ear. Oral cavity normal EYES: Pupils equal. Conjunctiva normal. NECK: JVD not raised. Mass not palpable. RESPIRATORY: Respiratory effort increased. Lungs decreased breath sound CARDIOVASCULAR: First and second sounds normal. No edema. ABDOMEN: Soft. Liver and spleen not palpable. No tenderness. No mass palpable. PSYCHIATRY: Alert and oriented x3. Mood and affect normal. INVESTIGATIONS, reviewed in the clinical context: Sodium 138 potassium 4.7 creatinine 1.04 Assessment and plan: -Acute on chronic congestive heart failure from diastolic dysfunction EF 20-25%: Slow to respond IV Lasix 40 mg every 8 -Moderate to severe mitral and tricuspid regurgitation Follow clinically -Acute COPD exacerbation in a previous smoker: Slow to respond Start DuoNeb 4 times a day, IV Solu-Medrol every 6 -AICD -Hyperlipidemia -Essential hypertension Zestril 2.5 mg by mouth daily, Toprol-XL 25 mg by mouth twice a day -DVT left subclavian vein surgically removed Lovenox 70 mg subcu every 12 -Primary osteoarthritis Tylenol as needed Continue IV Lasix. DuoNeb 4 times a day. [place] Solu-Medrol to 40 mg every 8. Discussed with patient.
[2021-06-22 23:00] LABS: Glucose,Whole Blood 190 mg/dL (75-99)
[2021-06-22] MEDS: methylPREDNISolone SOD SUCCI 40 MG/ML 1 ML VIAL IV SCH (23:04)
[2021-06-23 06:25] LABS: Glucose,Whole Blood 110 mg/dL (75-99)
[2021-06-23] MEDS: INSULIN ASPART (NovoLOG) 100 UNIT/ML VIAL SQ SCH ×4 (06:31→21:58)
[2021-06-23] MEDS: FUROSEMIDE 10 MG/ML 4 ML VIAL IV SCH ×3 (06:51→22:58)
[2021-06-23 08:14] LABS: African American GFR (CKD) >90 (>60 ml/min/1.73 sqM); Anion Gap 6 mmol/L; Blood Urea Nitrogen 42 mg/dL (9-20); Calcium 9.2 mg/dL (8.4-10.2); Carbon Dioxide 30 mmol/L (22-30); Chloride 104 mmol/L (98-107); Glucose 116 mg/dL (74-99); Non-African American GFR(CKD) 83 (>60 ml/min/1.73 sqM); Potassium 4.2 mmol/L (3.5-5.1); Sodium 140 mmol/L (137-145)
[2021-06-23] MEDS: AZITHROMYCIN 500 MG TAB PO SCH (08:16)
[2021-06-23] MEDS: METOPROLOL SUCCINATE (ER) 25 MG TAB.ER.24H PO SCH ×2 (08:16→21:58)
[2021-06-23] MEDS: methylPREDNISolone SOD SUCCI 40 MG/ML 1 ML VIAL IV SCH ×3 (08:16→22:58)
[2021-06-23] MEDS: ASPIRIN 81 MG PO SCH (08:16)
[2021-06-23] MEDS: ENOXAPARIN 80 MG/0.8 ML SYRINGE SQ SCH ×3 (08:16→22:59)
[2021-06-23] MEDS: BUDESONIDE 0.5 MG/2 ML NEBU INHALATION SCH ×2 (08:17→19:30)
[2021-06-23] MEDS: IPRATROPIUM-ALBUTEROL 3 ML NEB INHALATION SCH ×5 (08:17→19:30)
--- NOTE | 2021-06-23 08:18 | ECHOF ---
Referral Reason:chf MEASUREMENTS -------- HEIGHT: 167.6 cm WEIGHT: 78.5 kg BP: IVSd: 1.2 cm (0.6 - 1.1) LVIDd: 5.3 cm (3.9 - 5.3) LVPWd: 1.4 cm (0.6 - 1.1) EDV(Teich): 134 ml IVSs: 1.7 cm LVIDs: 4.5 cm LVPWs: 1.4 cm %IVS Thck: 47 % ESV(Teich): 94 ml EF(Teich): 30 % %FS: 14 % SV(Teich): 40 ml RVIDd: 3.7 cm (< 3.3) IVC: 20.28 mm RA Diam: 5.3 cm LALs A4C: 5.7 cm LAAs A4C: 17.5 cm LAESV A-L A4C: 46 ml LAESV MOD A4C: 44 ml LALs A2C: 5.5 cm LAAs A2C: 22.0 cm LAESV A-L A2C: 76 ml LAESV MOD A2C: 73 ml LAESV(A-L): 60 ml LAESV Index (A-L): 31.84 ml/m Ao Diam: 3.0 cm (2.0 - 3.7) LA Diam: 3.1 cm (2.7 - 3.8) AV Cusp: 1.9 cm (1.5 - 2.6) EPSS: 1.3 cm MV E Carloz: 0.93 m/s MV DecT: 188 ms MV Dec [place]: 5.0 m/s MV A Carloz: 0.54 m/s MV E/A Ratio: 1.73 MV PHT: 55 ms MR Vmax: 2.48 m/s MR maxP.61 mmHg AV Vmax: 0.97 m/s AV maxP.78 mmHg TR Vmax: 2.25 m/s TR maxP.16 mmHg RAP: 15.00 mmHg RVSP: 35.16 mmHg MV EF SLOPE: 40.51 mm/s (70 - 150) MV EXCURSION: 9.37 mm (> 18.000) FINDINGS -------- The left ventricular size is normal. There is mild concentric left ventricular hypertrophy. There is severe global hypokinesis of LV . Overall left ventricular systolic function is severely impair ed with, an EF between 20 - 25 %. Left ventricular fillimg pressure cannot be estimated due to pace d rhythm. The right ventricle is mildly enlarged. LA is midly dilated 29-33ml/m2. RA appears enlarged. Aortic valve is trileaflet and is mildly thickened. The mitral valve is normal. Mild mitral regurgitation is present. The tricuspid valve appears structurally normal. Moderate tricuspid regurgitation present. There is borderline pulmonary hypertension. The right ventricular systolic pressure, as measured by Doppl er, is 35.16mmHg. There is no pulmonic regurgitation present. The aortic root size is normal. The inferior vena cava is mildly dilated. There is no pericardial effusion. CONCLUSIONS -------- 1. The left ventricular size is normal. 2. There is mild concentric left ventricular hypertrophy. 3. There is severe global hypokinesis of LV . 4. Overall left ventricular systolic function is severely impaired with, an EF between 20 - 25 %. 5. Left ventricular fillimg pressure cannot be estimated due to paced rhythm. 6. The right ventricle is mildly enlarged. 7. LA is midly dilated 29-33ml/m2. 8. RA appears enlarged. 9. Aortic valve is trileaflet and is mildly thickened. 10. Mild mitral regurgitation is present. 11. Moderate tricuspid regurgitation present. 12. There is borderline pulmonary hypertension. 13. The right ventricular systolic pressure, as measured by Doppler, is 35.16mmHg. 14. The inferior vena cava is mildly dilated. 15. There is no pericardial effusion. RIB PULLER: Maya Knox RDCS
[2021-06-23] MEDS: MORPHINE SULFATE 2 MG/ML SYRINGE IVP PRN ×3 (08:23→21:59)
[2021-06-23 11:57] LABS: Glucose,Whole Blood 187 mg/dL (75-99)
--- NOTE | 2021-06-23 14:11 | P.PN ---
Subjective 60-year-old gentleman with history of severe COPD, chronic heart failure stage D, nonischemic cardiomyopathy status post AICD. Patient follows in the office with Dr. Thomas. Patient presents to hospital with progressively worsening shortness of breath leg edema and weight gain and also complains of chest discomfort. Patient underwent cardiac catheterization in 2019 that did not reveal significant CAD. He has severe LV systolic dysfunction with ejection fraction less than 30% and underwent an AICD. His clinical presentation is consistent with acute exacerbation of chronic systolic heart failure and COPD exacerbation. Patient treated with intravenous diuretics, beta shahram, and low dose ACEI. Patient seen at bedside, no acute distress. He continues to be short of breath with activity in his room. He's currently maintained on IV Lasix 40 mg every 8 hours, aspirin 80 mg daily, lisinopril 2.5 mg daily and metoprolol succinate 25 mg twice a day. Patient with 1.2L urine output over the past 24 hours. Blood pressures are stable. Patient maintaining sinus mechanism. Labs, sodium 140, potassium 4.2, BUN 42, serum creatinine 0.9 Vitals reviewed GENERAL: In no acute distress. NECK: Supple without JVD LUNGS: Breath sounds crackles to auscultation bilaterally. Respiration equal and unlabored. No wheezes, rales or rhonchi. HEART: Regular rate and rhythm without murmurs, rubs or gallops. S1 and S2 heard. EXTREMITIES: Normal range of motion, no edema. No clubbing or cyanosis. Peripheral pulses intact. ASSESSMENT Heart failure with reduced ejection fraction EF 20-25% COPD Nonischemic cardiomyopathy status post AICD PLAN Continue IV diuretics for additional 24 hours Continue monitor the kidney function and electrolytes, I/Os, daily weights Continue aspirin, lisinopril, metoprolol succinate. Further recommendations based on clinical course Nurse Practitioner note has been reviewed, I agree with a documented findings a nd plan of care. Patient was seen and examined. Objective - Vital Signs Vital signs: Vital Signs Temp 96.5 F L 06/23/21 11:42 Pulse 77 06/23/21 13:05 Resp 16 06/23/21 13:05 BP 117/76 06/23/21 11:42 Pulse Ox 96 06/23/21 11:42 Intake & Output 06/22/21 06/23/21 06/23/21 18:59 06:59 18:59 Output Total 1200 Balance -1200 Output: Urine 1200 Other: Voiding Method Toilet Toilet - Labs CBC & Chem 7: 06/19/21 19:41 06/23/21 07:38 Labs: Abnormal Lab Results - Last 24 Hours (Table) 06/22/21 06/22/21 06/23/21 Range/Units 17:00 22:59 06:24 BUN (9-20) mg/dL Glucose (74-99) mg/dL POC Glucose (mg/dL) 166 H 190 H 110 H (75-99) mg/dL 06/23/21 06/23/21 Range/Units 07:38 11:56 BUN 42 H (9-20) mg/dL Glucose 116 H (74-99) mg/dL POC Glucose (mg/dL) 187 H (75-99) mg/dL
--- NOTE | 2021-06-23 14:12 | P.PN ---
Progress Note - Text Progress Note Date: 06/23/21 Presenting complaint: Shortness of breath Hospital course: I'm rounding for Dr. Felix Burgos 60-year-old gentleman with history of severe COPD, chronic heart failure stage D, nonischemic cardiomyopathy status post AICD. Patient follows in the office with Dr. Thomas. Patient presents to hospital with progressively worsening shortness of breath leg edema and weight gain and also complains of chest discomfort. Patient underwent cardiac catheterization in 2019 that did not reveal significant CAD. He has severe LV systolic dysfunction with ejection fraction less than 30% and underwent an AICD. His clinical presentation is consistent with acute exacerbation of chronic systolic heart failure and COPD exacerbation. Patient treated with intravenous diuretics, beta shahram, and low dose ACEI. June 22: Breathing a bit better. Oral intake good. Some edema. On IV Lasix 40 mg daily. Negative fluid balance. June 23: Breathing slightly better. Remains on IV Lasix. Good urine output. Oral intake fair Active Medications Albuterol Sulfate (Albuterol Nebulized 2.5 Mg/3 Ml) 2.5 mg INHALATION Q2H PRN PRN Reason: Dyspnea Last Admin: 06/22/21 11:19 Dose: 2.5 mg Documented by: Albuterol/Ipratropium (Ipratropium-Albuterol 3 Ml Neb) 3 ml INHALATION RT-Q4H PRN PRN Reason: Shortness Of Breath Or Wheezing Last Admin: 06/22/21 20:07 Dose: 3 ml Documented by: Albuterol/Ipratropium (Ipratropium-Albuterol 3 Ml Neb) 3 ml INHALATION RT-QID [facility] Last Admin: 06/23/21 11:56 Dose: 3 ml Documented by: Aspirin (Aspirin 81 Mg) 81 mg PO DAILY [facility] Last Admin: 06/23/21 08:16 Dose: 81 mg Documented by: Budesonide (Budesonide 0.5 Mg/2 Ml Nebu) 0.5 mg INHALATION RT-BID [facility] Last Admin: 06/23/21 08:17 Dose: Not Given Documented by: Enoxaparin Sodium (Enoxaparin 80 Mg/0.8 Ml Syringe) 70 mg SQ BID [facility] Last Admin: 06/23/21 08:16 Dose: 70 mg Documented by: Furosemide (Furosemide 10 Mg/Ml 4 Ml Vial) 40 mg IV Q8H [facility] Last Admin: 06/23/21 12:15 Dose: 40 mg Documented by: Insulin Aspart (Insulin Aspart (Novolog) 100 Unit/Ml Vial) 0 unit SQ ACHS [facility]; Protocol Last Admin: 06/23/21 12:15 Dose: 2 unit Documented by: Lisinopril (Lisinopril 2.5 Mg Tab) 2.5 mg PO DAILY [facility] Last Admin: 06/23/21 08:16 Dose: 2.5 mg Documented by: Methylprednisolone Sodium Succinate (Methylprednisolone Sod Succi 40 Mg/Ml 1 Ml Vial) 40 mg IV Q8HR [facility] Last Admin: 06/23/21 08:16 Dose: 40 mg Documented by: Metoprolol Succinate (Metoprolol Succinate (Er) 25 Mg Tab.Er.24h) 25 mg PO BID [facility] Last Admin: 06/23/21 08:16 Dose: 25 mg Documented by: Morphine Sulfate (Morphine Sulfate 2 Mg/Ml Syringe) 2 mg IVP Q4HR PRN PRN Reason: Pain/Discomfort Last Admin: 06/23/21 08:23 Dose: 2 mg Documented by: On examination: VITAL SIGNS: 96.5, 77, 16, 170/76, 96% on 2 L GENERAL APPEARANCE: Reclining in bed, awake, tired. HEENT: Normal external appearance of nose and ear. Oral cavity normal EYES: Pupils equal. Conjunctiva normal. NECK: JVD not raised. Mass not palpable. RESPIRATORY: Respiratory effort increased. Lungs decreased breath sound CARDIOVASCULAR: First and second sounds normal. No edema. ABDOMEN: Soft. Liver and spleen not palpable. No tenderness. No mass palpable. PSYCHIATRY: Alert and oriented x3. Mood and affect normal. INVESTIGATIONS, reviewed in the clinical context: Sodium 138 potassium 4.7 creatinine 1.04 Assessment and plan: -Acute on chronic congestive heart failure from diastolic dysfunction EF 20-25%: Slow to respond IV Lasix 40 mg every 8 -Moderate to severe mitral and tricuspid regurgitation Follow clinically -Acute COPD exacerbation in a previous smoker: Slow to respond DuoNeb 4 times a day, IV Solu-Medrol every 6 -AICD -Hyperlipidemia -Essential hypertension Zestril 2.5 mg by mouth daily, Toprol-XL 25 mg by mouth twice a day -DVT left subclavian vein surgically removed Lovenox 70 mg subcu every 12 -Primary osteoarthritis Tylenol as needed Continue IV Lasix. DuoNeb 4 times a day. Solu-Medrol to 40 mg every 8. Discussed with patient.
--- NOTE | 2021-06-23 15:53 | P.PN ---
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 History of alcoholic liver disease 06/23/2021, patient seen and evaluated examined undergoing physical therapy is still short of breath during activity and exertion oxygen saturation hour remains stable at room air into the low to mid 90s, bilateral coarse breath sounds are present, labs from today reviewed sodium is 140 potassium 4.2, creat inine 42/0.99, he is off of the antibiotics, on IV steroids bronchodilator and diuresis Objective - Vital Signs Vital signs: Vital Signs Temp 96.5 F L 06/23/21 11:42 Pulse 77 06/23/21 13:05 Resp 19 06/23/21 15:05 BP 117/76 06/23/21 11:42 Pulse Ox 96 06/23/21 11:42 Intake & Output 06/22/21 06/23/21 06/23/21 18:59 06:59 18:59 Output Total 1200 Balance -1200 Output: Urine 1200 Other: Voiding Method Toilet Toilet Toilet - Exam - Constitutional General appearance: average body habitus, disheveled - EENT Eyes: EOMI, PERRLA Ears: bilateral: normal - Neck Carotids: bilateral: upstroke normal - Respiratory Respiratory: bilateral: diminished, wheezing - Cardiovascular Rhythm: regular Heart sounds: normal: S1, S2 - Gastrointestinal General gastrointestinal: decreased bowel sounds - Integumentary Integumentary: normal turgor - Neurologic Neurologic: CNII-XII intact - Musculoskeletal Musculoskeletal: gait normal, generalized weakness, strength equal bilaterally - Psychiatric Psychiatric: A&O x's 3, appropriate affect, intact judgment & insight - Labs CBC & Chem 7: 06/19/21 19:41 06/23/21 07:38 Labs: Abnormal Lab Results - Last 24 Hours (Table) 06/22/21 06/22/21 06/23/21 Range/Units 17:00 22:59 06:24 BUN (9-20) mg/dL Glucose (74-99) mg/dL POC Glucose (mg/dL) 166 H 190 H 110 H (75-99) mg/dL 06/23/21 06/23/21 Range/Units 07:38 11:56 BUN 42 H (9-20) mg/dL Glucose 116 H (74-99) mg/dL POC Glucose (mg/dL) 187 H (75-99) mg/dL Assessment and Plan Assessment: Acute COPD exacerbation Tracheobronchitis Chronic systolic heart failure with development of progressive anasarca Abdominal ascites Nonischemic alcoholic cardiomyopathy Plan: Increase activity as tolerated Bronchodilator Supplemental oxygen IV steroids Observe off of Broad-spectrum antibiotics Continue anticoagulation Optimize therapy for heart failure with diuretic afterload reducing agent SAEED inhibitor We'll follow closely Time with Patient: Greater than 30
[2021-06-23 16:49] LABS: Glucose,Whole Blood 110 mg/dL (75-99)
[2021-06-23 19:48] LABS: Glucose,Whole Blood 196 mg/dL (75-99)
[2021-06-24 06:25] LABS: Glucose,Whole Blood 167 mg/dL (75-99)
[2021-06-24] MEDS: FUROSEMIDE 10 MG/ML 4 ML VIAL IV SCH ×3 (06:52→22:05)
[2021-06-24] MEDS: INSULIN ASPART (NovoLOG) 100 UNIT/ML VIAL SQ SCH ×3 (06:53→16:58)
[2021-06-24] MEDS: IPRATROPIUM-ALBUTEROL 3 ML NEB INHALATION SCH ×4 (07:18→19:49)
[2021-06-24] MEDS: BUDESONIDE 0.5 MG/2 ML NEBU INHALATION SCH ×2 (07:18→19:49)
[2021-06-24 07:50] LABS: African American GFR (CKD) >90 (>60 ml/min/1.73 sqM); Anion Gap 6 mmol/L; Blood Urea Nitrogen 33 mg/dL (9-20); Calcium 9.1 mg/dL (8.4-10.2); Carbon Dioxide 31 mmol/L (22-30); Chloride 102 mmol/L (98-107); Glucose 148 mg/dL (74-99); Magnesium 1.8 mg/dL (1.6-2.3); Non-African American GFR(CKD) 88 (>60 ml/min/1.73 sqM); Potassium 3.8 mmol/L (3.5-5.1); Sodium 139 mmol/L (137-145)
[2021-06-24] MEDS: ENOXAPARIN 80 MG/0.8 ML SYRINGE SQ SCH (10:33)
[2021-06-24] MEDS: METOPROLOL SUCCINATE (ER) 25 MG TAB.ER.24H PO SCH ×2 (10:33→22:05)
[2021-06-24] MEDS: ASPIRIN 81 MG PO SCH (10:33)
--- NOTE | 2021-06-24 10:41 | P.PN ---
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 History of alcoholic liver disease 06/24/2021, patient seen and evaluated examined on 2 L nasal cannula, patient has been ambulated without oxygen oxygen saturation remained stable, patient has a nebulizer machine and medicine at home, and is getting diuretics urine output has been adequate, labs from today reviewed BUN/creatinine 33/0.95 status pending anasarca and third spacing continued to improve, patient remains on bronchodilators, IV steroids, diuretics, high-dose Lovenox, heart cardiovascular services following for heart failure 06/23/2021, patient seen and evaluated examined undergoing physical therapy is still short of breath during activity and exertion oxygen saturation hour remains stable at room air into the low to mid 90s, bilateral coarse breath sounds are present, labs from today reviewed sodium is 140 potassium 4.2, creatinine 42/0.99, he is off of the antibiotics, on IV steroids bronchodilator and diuresis Objective - Vital Signs Vital signs: Vital Signs Temp 97.9 F 06/24/21 04:00 Pulse 71 06/24/21 07:35 Resp 18 06/24/21 04:00 BP 128/79 06/24/21 04:00 Pulse Ox 97 06/24/21 04:00 Intake & Output 06/23/21 06/24/21 06/24/21 18:59 06:59 18:59 Output Total 3250 Balance -3250 Output: Urine 3250 Other: Voiding Method Toilet Toilet # Voids 3 - Exam - Constitutional General appearance: average body habitus, disheveled - EENT Eyes: EOMI, PERRLA Ears: bilateral: normal - Neck Carotids: bilateral: upstroke normal - Respiratory Respiratory: bilateral: diminished, wheezing - Cardiovascular Rhythm: regular Heart sounds: normal: S1, S2 - Gastrointestinal General gastrointestinal: decreased bowel sounds - Integumentary Integumentary: normal turgor - Neurologic Neurologic: CNII-XII intact - Musculoskeletal Musculoskeletal: gait normal, generalized weakness, strength equal bilaterally - Psychiatric Psychiatric: A&O x's 3, appropriate affect, intact judgment & insight - Labs CBC & Chem 7: 06/19/21 19:41 06/24/21 07:14 Labs: Abnormal Lab Results - Last 24 Hours (Table) 06/23/21 06/23/21 06/23/21 Range/Units 11:56 16:47 19:46 Carbon Dioxide (22-30) mmol/L BUN (9-20) mg/dL Glucose (74-99) mg/dL POC Glucose (mg/dL) 187 H 110 H 196 H (75-99) mg/dL 06/24/21 06/24/21 Range/Units 06:23 07:14 Carbon Dioxide 31 H (22-30) mmol/L BUN 33 H (9-20) mg/dL Glucose 148 H (74-99) mg/dL POC Glucose (mg/dL) 167 H (75-99) mg/dL Assessment and Plan Assessment: Acute COPD exacerbation Tracheobronchitis Chronic systolic heart failure with development of progressive anasarca Abdominal ascites Nonischemic alcoholic cardiomyopathy Plan: Increase activity as tolerated Bronchodilator Supplemental oxygen IV steroids Observe off of Broad-spectrum antibiotics Continue anticoagulation Optimize therapy for heart failure with diuretic afterload reducing agent SAEED inhibitor We'll follow closely Time with Patient: Greater than 30
[2021-06-24] MEDS: MORPHINE SULFATE 2 MG/ML SYRINGE IVP PRN ×2 (10:47→22:06)
[2021-06-24 11:48] LABS: Glucose,Whole Blood 144 mg/dL (75-99)
[2021-06-24] MEDS: methylPREDNISolone SOD SUCCI 40 MG/ML 1 ML VIAL IV SCH (12:17)
--- NOTE | 2021-06-24 13:24 | P.PN ---
Subjective 60-year-old gentleman with history of severe COPD, chronic heart failure stage D, nonischemic cardiomyopathy status post AICD. Patient follows in the office with Dr. Thomas. Patient presents to hospital with progressively worsening shortness of breath leg edema and weight gain and also complains of chest discomfort. Patient underwent cardiac catheterization in 2019 that did not reveal significant CAD. He has severe LV systolic dysfunction with ejection fraction less than 30% and underwent an AICD. His clinical presentation is consistent with acute exacerbation of chronic systolic heart failure and COPD exacerbation. Patient treated with intravenous diuretics, beta shahram, and low dose ACEI. Patient seen at bedside, no acute distress. His breathing has improved compared to yesterday. Continues to have shortness of breath, lower extremity edema and crackles but this has improved on current regimen. His kidney function is stable. He's currently maintained on IV Lasix 40 mg every 8 hours, aspirin 80 mg daily, lisinopril 2.5 mg daily and metoprolol succinate 25 mg twice a day. Patient with 3250mL urine output over the past 24 hours. weight has decreased. Blood pressures are stable. Patient maintaining sinus mechanism. Labs, sodium 139, potassium 3.8, BUN 33 serum creatinine 0.95 Vitals reviewed GENERAL: In no acute distress. NECK: Supple without JVD LUNGS: Breath sounds crackles to auscultation bilaterally. Respiration equal and unlabored. No wheezes, rales or rhonchi. HEART: Regular rate and rhythm without murmurs, rubs or gallops. S1 and S2 heard. EXTREMITIES: Normal range of motion, no edema. No clubbing or cyanosis. Peripheral pulses intact. ASSESSMENT Heart failure with reduced ejection fraction EF 20-25% COPD exacerbation Nonischemic cardiomyopathy status post AICD PLAN We will continue IV diuretics for additional 24 hours and continue to monitor patient, he is improving Continue monitor the kidney function and electrolytes, I/Os, daily weights Continue aspirin, lisinopril, metoprolol succinate. Further recommendations based on clinical course Nurse Practitioner note has been reviewed, I agree with a documented findings and plan of care. Patient was seen and examined. Objective - Vital Signs Vital signs: Vital Signs Temp 99.1 F 06/24/21 12:20 Pulse 78 06/24/21 12:20 Resp 18 06/24/21 12:20 BP 132/84 06/24/21 12:20 Pulse Ox 95 06/24/21 12:20 Intake & Output 06/23/21 06/24/21 06/24/21 18:59 06:59 18:59 Intake Total 480 Output Total 3250 Balance -3250 480 Intake: Oral 480 Output: Urine 3250 Other: Voiding Method Toilet Toilet Toilet # Voids 3 - Labs CBC & Chem 7: 06/19/21 19:41 06/24/21 07:14 Labs: Abnormal Lab Results - Last 24 Hours (Table) 06/23/21 06/23/21 06/24/21 Range/Units 16:47 19:46 06:23 Carbon Dioxide (22-30) mmol/L BUN (9-20) mg/dL Glucose (74-99) mg/dL POC Glucose (mg/dL) 110 H 196 H 167 H (75-99) mg/dL 06/24/21 06/24/21 Range/Units 07:14 11:46 Carbon Dioxide 31 H (22-30) mmol/L BUN 33 H (9-20) mg/dL Glucose 148 H (74-99) mg/dL POC Glucose (mg/dL) 144 H (75-99) mg/dL
--- NOTE | 2021-06-24 14:39 | CDI ---
Documentation Clarification Form Date: 06/24/2021 02:24:36 PM From: Sally PierceMAXIMUS marcial, CCDS Admit Date: 06/19/2021 10:46:00 PM Patient Name: Phil Yap Visit Number: [id number] Discharge Date: ATTENTION: The Clinical Documentation Specialists (CDI) and [facility] Coding Staff appreciate your assistance in clarifying documentation. Please respond to the clarification below the line at the bottom and electronically sign. The CDI & [facility] Coding staff will review the response and follow-up if needed. Please note: Queries are made part of the Legal Health Record. If you have any questions, please contact the author of this message via ITS. Dr. Hugh Wang: The patient presented with SOB, Cough, Scattered rhonchi & wheezing, 2+ pitting edema, distended abdomen and Anterior Chest Pain. the patient has a history of CHF, COPD, Nonischemic Cardiomypathy with AICD and previous [place]. Based on this information and the findings below, is there an additional diagnosis that is clinically appropriate for this patient? History/Risk Factors per the 06/20 H/P & 06/19 ED Note: CHF, Nonischemic Cardiomyopathy, AICD, COPD, Hypertension, Hyperlipidemia and Former smoker. Clinical Indicators: Presented to the ED with acute onset chest pain, cough and SOB. Home meds: Lipitor, INH Symbicort, Nitro sl, Aldactone Admit with CHF exacerbation, COPD exacerbation, Recurrent right pleural effusion & Hypomagnesemia 06/19 VS: T 97.8, P 81 - 130, R 22, 28 (sob, labored, accessory use); BP 109/67, PO 97 RA - 97 3Lnc, BMI: 27.6 06/19 LAB: RBC 4.25, Hgb 12.6, Neut 8.5, Lymph 0.8; PT 12.2, D Dimer 1.57; glucose 155, Mag 1.3, Total bili 2.0 06/19: ABG: pH 7.41, pCO2 45, pO2 96, HCO3 29, total CO2 30, O2 Sat 97.5 06/19 CXR: Cardiomegaly, no active cardiopulmonary disease. 06/19 CT Chest: Mild pleural reaction & atelectasis left posterior lung base. Small left pleural effusion. Abdominal ascites. No PE. Heart appears increased. CHF is possible. 06/21 ECHO: Mild LVH, Severe global hypokinesis of LV, Left systolic function is severely impaired w/EF 20-25%, Right ventricle is mildly enlarged, RA enlarged, Mild MR, Moderate TR, borderline pulmonary hypertension. Treatment 06/19: Glucose monitoring, CHF protocol, Insulin sliding scale, [place] catheter, O2 2Lnc, Nitro sl, IV Morphine 2 mg x1, IV Zofran 4 mg x1, INH Ventolin x1, INH Duoneb x2, IV MagSulfate/Dextrose 100 mls/hr x2, IV Solumedrol 125 mg x1, IV Morphine 4 mg x1, IV Lasix 40 mg q8H Is there an additional diagnosis that is clinically appropriate for this patient? [ x ] Acute Hypoxic Respiratory Failure [ ] Acute on Chronic Hypoxic Respiratory Failure [ ] Chronic Hypoxic Respiratory Failure [ ] Acute Respiratory Insufficiency [ ] Other Diagnosis, please specify: [ ] Unable to determine (Template Last Revised: June 2020) MTDD
[2021-06-24 16:31] LABS: Glucose,Whole Blood 95 mg/dL (75-99)
[2021-06-24 20:16] LABS: Glucose,Whole Blood 128 mg/dL (75-99)
--- NOTE | 2021-06-24 21:57 | PN ---
PROGRESS NOTE This 60-year-old white male says he wants to go home. Cardiology is ordered IV Lasix for another 24 hours. He is 94 pulse ox on 2 L. He at this point on room air. Blood pressure 132/79, pulse is 80s, respiratory 18-20. Cardiovascular S1, S2. Lungs clear. Extremities 2+ edema. Sugars in the mid 100s. IMPRESSION: 1. Acute chronic obstructive pulmonary disease exacerbation. 2. Congestive heart failure exacerbation. 3. AICD. . 4. Possible discharge home. Switch steroids to oral. Possibly send home tomorrow. Labs were reviewed. Please see further orders. MMODL / IJN: [id number] /
[2021-06-25 00:51] VITALS: RESP 18
[2021-06-25] MEDS: INSULIN ASPART (NovoLOG) 100 UNIT/ML VIAL SQ SCH ×3 (00:57→13:56)
[2021-06-25 06:16] LABS: Glucose,Whole Blood 91 mg/dL (75-99)
[2021-06-25 07:27] LABS: Basophils # (A) 0.1 k/uL (0-0.2); Basophils % (A) 0 %; Eosinophils # (A) 0.1 k/uL (0-0.7); Eosinophils % (A) 0 %; HCT 44.3 % (39.0-53.0); HGB 13.7 gm/dL (13.0-17.5); Hypochromasia Slight; Lymphocytes # (A) 1.9 k/uL (1.0-4.8); Lymphocytes % (A) 13 %; MCH 29.1 pg (25.0-35.0); MCHC 30.8 g/dL (31.0-37.0); MCV 94.3 fL (80.0-100.0); Mean Platelet Volume 7.9; Monocytes % (A) 7 %; Neutrophils # (A) 11.4 k/uL (1.3-7.7); Neutrophils % (A) 78 %; Platelet Count 346 k/uL (150-450); RDW 15.5 % (11.5-15.5); WBC 14.6 k/uL (3.8-10.6)
[2021-06-25 07:44] LABS: Albumin 3.5 g/dL (3.5-5.0); Calcium 8.9 mg/dL (8.4-10.2); Potassium 4.2 mmol/L (3.5-5.1); Total Bilirubin 0.7 mg/dL (0.2-1.3); Total Protein 6.5 g/dL (6.3-8.2)
[2021-06-25] MEDS: FUROSEMIDE 10 MG/ML 4 ML VIAL IV SCH (07:47)
[2021-06-25] MEDS: IPRATROPIUM-ALBUTEROL 3 ML NEB INHALATION SCH ×3 (08:23→15:33)
[2021-06-25] MEDS: BUDESONIDE 0.5 MG/2 ML NEBU INHALATION SCH (08:23)
[2021-06-25] MEDS ORDERED: predniSONE 20 MG TAB PO SCH (09:00)
[2021-06-25] MEDS: ENOXAPARIN 80 MG/0.8 ML SYRINGE SQ SCH (09:15)
[2021-06-25] MEDS: ASPIRIN 81 MG PO SCH (09:16)
[2021-06-25] MEDS: METOPROLOL SUCCINATE (ER) 25 MG TAB.ER.24H PO SCH (09:16)
[2021-06-25 09:24] VITALS: BP 119/76; TEMP 97.4
--- NOTE | 2021-06-25 11:20 | P.PN ---
Subjective 60-year-old gentleman with history of severe COPD, chronic heart failure stage D, nonischemic cardiomyopathy status post AICD. Patient follows in the office with Dr. Thomas. Patient presents to hospital with progressively worsening shortness of breath leg edema and weight gain and also complains of chest discomfort. Patient underwent cardiac catheterization in 2019 that did not reveal significant CAD. He has severe LV systolic dysfunction with ejection fraction less than 30% and underwent an AICD. His clinical presentation is consistent with acute exacerbation of chronic systolic heart failure and COPD exacerbation. Patient treated with intravenous diuretics, beta shahram, and low dose ACEI. Patient seen at bedside, no acute distress. His breathing has improved compared significantly compared to yesterday. His lungs are clear. His kidney function is stable. He's currently maintained on IV Lasix 40 mg every 8 hours, aspirin 80 mg daily, lisinopril 2.5 mg daily and metoprolol succinate 25 mg twice a day. Patient with 2450mL urine output over the past 24 hours. weight has decreased. Blood pressures are stable. Patient maintaining sinus mechanism. Labs, sodium 138, potassium 4.2, BUN 36 serum creatinine 1.06 Vitals reviewed GENERAL: In no acute distress. NECK: Supple without JVD LUNGS: Breath sounds clear to auscultation bilaterally. Respiration equal and unlabored. No wheezes, rales or rhonchi. HEART: Regular rate and rhythm without murmurs, rubs or gallops. S1 and S2 heard. EXTREMITIES: Normal range of motion, no edema. No clubbing or cyanosis. Peripheral pulses intact. ASSESSMENT Heart failure with reduced ejection fraction EF 20-25% COPD exacerbation Nonischemic cardiomyopathy status post AICD PLAN Transition to PO Lasix 60mg BID Continue aspirin, lisinopril, metoprolol succinate. From a cardiology perspective, patient stable to be discharged home. Follow up with Dr. Thomas in 1-2 weeks. Nurse Practitioner note has been reviewed, I agree with a documented findings and plan of care. Patient was seen and examined. Objective - Vital Signs Vital signs: Vital Signs Temp 97.4 F L 06/25/21 09:10 Pulse 77 06/25/21 09:10 Resp 18 06/25/21 09:10 BP 119/76 06/25/21 09:10 Pulse Ox 95 06/25/21 09:10 Intake & Output 06/24/21 06/25/21 06/25/21 18:59 06:59 18:59 Intake Total 1120 598 Output Total 2450 Balance 1120 -1852 Intake: Oral 1120 598 Output: Urine 2450 Other: Voiding Method Toilet Toilet Toilet # Voids 2 - Labs CBC & Chem 7: 06/25/21 07:04 06/25/21 07:04 Labs: Abnormal Lab Results - Last 24 Hours (Table) 06/24/21 06/24/21 06/25/21 Range/Units 11:46 20:06 07:04 WBC (3.8-10.6) k/uL MCHC (31.0-37.0) g/dL Neutrophils # (1.3-7.7) k/uL Chloride 96 L (98-107) mmol/L Carbon Dioxide 36 H (22-30) mmol/L BUN 36 H (9-20) mg/dL POC Glucose (mg/dL) 144 H 128 H (75-99) mg/dL ALT 140 H (4-49) U/L 06/25/21 Range/Units 07:04 WBC 14.6 H (3.8-10.6) k/uL MCHC 30.8 L (31.0-37.0) g/dL Neutrophils # 11.4 H (1.3-7.7) k/uL Chloride (98-107) mmol/L Carbon Dioxide (22-30) mmol/L BUN (9-20) mg/dL POC Glucose (mg/dL) (75-99) mg/dL ALT (4-49) U/L
[2021-06-25 11:55] LABS: Glucose,Whole Blood 93 mg/dL (75-99)
[2021-06-25 15:42] VITALS: PULSE 85
[2021-06-25] MEDS ORDERED: FUROSEMIDE 20 MG TAB PO SCH (16:00)
[2021-06-25 16:42] LABS: Glucose,Whole Blood 118 mg/dL (75-99)
--- NOTE | 2021-06-25 17:00 | DS ---
DISCHARGE SUMMARY DIAGNOSIS: 1. Systolic congestive heart failure exacerbation, low ejection fraction. 2. Chronic obstructive pulmonary disease exacerbation. 3. Hypomagnesemia. 4. Recurrent pleural effusion. HOME MEDICINES: 1. Prednisone 40 mg daily for 5 days. 2. Zestril 2.5 daily. 3. Aspirin 81 daily. 4. Lasix 60 mg b.i.d. 5. Lovenox 80 mg subcutaneously q.12. 6. Aldactone 25 daily. 7. Nitrostat sublingually p.r.n. 8. Symbicort 160/4.5 two puffs b.i.d. 9. Toprol-XL 25 b.i.d. 10.Lipitor 80 daily. CONDITION: Stable. PROGNOSIS: Guarded. Home oxygen checked for nighttime breathing. This white male came into the hospital systolic CHF, elevated BNP over 11,000. He was given IV Lasix, switched to oral on discharge. IV steroids were switched to oral on discharge for COPD exacerbation, tracheobronchitis and CHF. The patient was stabilized from a medical standpoint. Will follow up as an outpatient. The patient appears to be medically stable after IV Lasix for 3 to 4 days per Cardiology's recommendations, which improved his breathing over time. Please see further orders. MMODL / IJN: [id number] /
== END 2021-06-25 17:54 | disposition home or self-care (01) | DRG 291 ==
LOC: EC 19:14 → 3SCARD 22:46
PROVIDERS: ADMIT Family Medicine; ATTEND Family Medicine
DX: I11.0 Hypertensive heart disease with heart failure (principal); I50.43 Acute on chronic combined systolic (congestive) and diastolic (congestive) heart failure; J96.01 Acute respiratory failure with hypoxia; I48.92 Unspecified atrial flutter; J44.1 Chronic obstructive pulmonary disease with (acute) exacerbation; R18.8 Other ascites; E78.5 Hyperlipidemia, unspecified; E83.42 Hypomagnesemia; F10.20 Alcohol dependence, uncomplicated; I08.1 Rheumatic disorders of both mitral and tricuspid valves; I25.2 Old myocardial infarction; I42.6 Alcoholic cardiomyopathy; I42.8 Other cardiomyopathies; I48.0 Paroxysmal atrial fibrillation; J40 Bronchitis, not specified as acute or chronic; K70.9 Alcoholic liver disease, unspecified; M19.91 Primary osteoarthritis, unspecified site; Z20.822 Contact with and (suspected) exposure to COVID-19; Z79.51 Long term (current) use of inhaled steroids; Z79.82 Long term (current) use of aspirin; Z79.899 Other long term (current) drug therapy; Z82.5 Family history of asthma and other chronic lower respiratory diseases; Z80.8 Family history of malignant neoplasm of other organs or systems; Z86.718 Personal history of other venous thrombosis and embolism; Z87.891 Personal history of nicotine dependence; Z95.810 Presence of automatic (implantable) cardiac defibrillator; Z90.49 Acquired absence of other specified parts of digestive tract; Z98.890 Other specified postprocedural states
CPT/HCPCS: 36415; 36600; 71046; 71275; 76705; 80048; 80053; 80061; 82805; 83605; 83735; 83880; 84484; 85025; 85379; 85610; 85730; 87635; 93005; 93306; 94640; 94760; 96365; 96366; 96375; 96376; 99291

== ENCOUNTER 2022-03-10 09:31 | Emergency (ER) | payer OTHER ==
[2022-03-10] MEDS ORDERED: methylPREDNISolone SOD SUCCI 125 MG/2 ML VIAL IV STA (10:14)
[2022-03-10] MEDS ORDERED: IBUPROFEN 800 MG TAB PO STA (10:14)
[2022-03-10] MEDS ORDERED: AZITHROMYCIN 500 MG in SODIUM CHLORIDE 0.9% 250 ML IVPB STA (10:15)
[2022-03-10] MEDS ORDERED: ALBUTEROL NEBULIZED 2.5 MG/3 ML INHALATION STA ×3 (10:15→13:50)
--- NOTE | 2022-03-10 10:31 | ED ---
General Adult HPI - General Chief complaint: Shortness of Breath Stated complaint: MEGHAN Time Seen by Provider: 03/10/22 09:56 Source: patient Mode of arrival: ambulatory Limitations: no limitations - History of Present Illness Initial comments: Patient is a 61 year-old male with a past medical history of COPD, chronic systolic heart failure nonischemic cardiomyopathy s/p AICD who presents to the emergency department with a chief complaint of shortness of breath. Patient states symptoms started yesterday. He does admit to worsening of shortness of breath while laying flat. He also reports chest tightness that is nonradiational, nonexertional. Tightness is continuous in nature. It is worsened with breathing. Denies lightheadedness, dizziness, palpitations, nausea, vomiting, abdominal pain. Does report chills, body aches, productive cough with clear sputum, sore throat. Used 2 albuterol nebulizer treatments today. Denies recent sick contacts. Patient does not wear supplemental oxygen at home however was placed on 2 L of supplement oxygen nasal cannula by EMS due to shortness of breath and oxygen saturation at 94%. Patient is a former smoker, 20 year pack history. Quit 2 years ago when AICD was placed. Denies alcohol use. I did review patient's last echocardiogram on 06/21/21 which was significant for severely impaired left ventricular systolic function with EF at 20-25%. - Related Data Home Medications Medication Instructions Recorded Confirmed Enoxaparin [Lovenox] 80 mg SQ Q12H 04/01/21 06/19/21 Metoprolol Succinate (ER) [Toprol 25 mg PO BID 06/19/21 06/19/21 XL] Previous Rx's Medication Instructions Recorded Atorvastatin [Lipitor] 80 mg PO DAILY 90 Days #90 tab 04/10/21 Budesonide-Formot 160-4.5 Mcg 1 puff INHALATION RT-BID 30 Days 04/10/21 [Symbicort 160-4.5 Mcg Inhaler] #1 gm Nitroglycerin Sl Tabs [Nitrostat] 0.4 mg SUBLINGUAL ONCE PRN 180 04/10/21 Days #100 tab Spironolactone [Aldactone] 25 mg PO DAILY 90 Days #90 tab 04/10/21 Aspirin 81 mg PO DAILY 06/25/21 Furosemide [Lasix] 60 mg PO BID@0900,1600 30 Days 06/25/21 #180 tab lisinopriL [Zestril] 2.5 mg PO DAILY 30 Days #30 tab 06/25/21 predniSONE [Deltasone] 40 mg PO DAILY 5 Days #5 tab 06/25/21 Azithromycin [Zithromax] 500 mg PO DAILY #5 tab 03/10/22 predniSONE 50 mg PO DAILY #5 tab 03/10/22 Allergies Allergy/AdvReac Type Severity Reaction Status Date / Time No Known Allergies Allergy Verified 03/10/22 09:51 Review of Systems ROS Statement: Those systems with pertinent positive or pertinent negative responses have been documented in the HPI. ROS Other: All systems not noted in ROS Statement are negative. Past Medical History Past Medical History: Heart Failure, COPD, Hyperlipidemia, Hypertension, Myocardial Infarction ([place]), Osteoarthritis (OA), Syncope Additional Past Medical History / Comment(s): DVT L subclavian/surgically removed, nonischemic cardiomyopathy/AICD/pacer in place, past ETOH-no use since 04/2020 Last Myocardial Infarction Date:: 02/25/20 History of Any Multi-Drug Resistant Organisms: None Reported Past Surgical History: AICD, Appendectomy, Cholecystectomy, Heart Catheterization, Pacemaker Additional Past Surgical History / Comment(s): 04/27/21 lap cholecystectomy, L upper extremity venogram/thrombolysis/thrombectomy Past Anesthesia/Blood Transfusion Reactions: No Reported Reaction Type of Cardiac Device: Permanent Pacemaker, AICD Device Placement Date:: 05/01/20 Past Psychological History: No Psychological Hx Reported Smoking Status: Former smoker Past Alcohol Use History: None Reported Past Drug Use History: None Reported - Past Family History Mother Family Medical History: Cancer Additional Family Medical History / Comment(s): Cancer in jaw. Father Family Medical History: COPD General Exam Limitations: no limitations General appearance: alert, in no apparent distress Head exam: Present: atraumatic, normocephalic, normal inspection Eye exam: Present: normal appearance, PERRL, EOMI. Absent: scleral icterus, conjunctival injection, periorbital swelling ENT exam: Present: normal oropharynx Neck exam: Present: normal inspection Respiratory exam: Present: normal lung sounds bilaterally, wheezes. Absent: respiratory distress, rales, rhonchi, stridor, chest wall tenderness, prolonged expiratory Cardiovascular Exam: Present: normal rhythm, tachycardia, normal heart sounds. Absent: regular rate, systolic murmur, diastolic murmur, rubs, gallop, clicks, JVD, S3, S4 GI/Abdominal exam: Present: soft, normal bowel sounds. Absent: distended, tenderness, guarding, rebound, rigid Extremities exam: Present: normal inspection, full ROM, normal capillary refill. Absent: tenderness, pedal edema, calf tenderness Neurological exam: Present: alert, oriented X3, CN II-XII intact Psychiatric exam: Present: normal affect, normal mood Skin exam: Present: warm, dry, intact, normal color. Absent: rash Course Vital Signs 03/10/22 03/10/22 03/10/22 09:49 11:56 12:05 Temperature 100.7 F H Pulse Rate 115 H 100 98 Respiratory 18 Rate Blood Pressure 118/73 O2 Sat by Pulse 94 L Oximetry 03/10/22 03/10/22 03/10/22 13:11 13:30 13:38 Temperature Pulse Rate 122 H 96 94 Respiratory 20 Rate Blood Pressure O2 Sat by Pulse 90 L Oximetry 03/10/22 03/10/22 03/10/22 14:59 15:45 15:57 Temperature Pulse Rate 82 75 81 Respiratory 16 Rate Blood Pressure 103/63 O2 Sat by Pulse 94 L Oximetry EKG Findings - EKG Comments: EKG Findings:: EKG taken at 9:54, interpreted by me. Sinus tachycardia with occasional supraventricular premature complexes, no significant ST segment or T- wave changes. Ventricular rate 106. [place] interval 154. QRS duration 93. QTc 411 Medical Decision Making - Medical Decision Making This is a 61 year-old male presenting with shortness of breath. Wheezes heard throughout without evidence of respiratory distress. Oxygen saturation is 98% on 2 L nasal cannula. Patient is tachycardic at 115, febrile at 100.7F. EKG obtained and interpreted by me shows sinus tachycardia with occasional supraventricular premature complexes, no significant ST segment or T-wave changes .Laboratory studies obtained. There is no leukocytosis. Lymphocytes are low at 0.5, suggesting viral infection. Troponin is within normal limits 2. BNP is within normal limits. COVID-19 and influenza are not detected. Chest x-ray obtained interpreted by me which shows no evidence of acute pulmonary disease. Patient given Solu-Medrol, azithromycin, 3 breathing treatments. Reevaluation shortness of breath has improved. Oxygen saturation was measured to ambulatory test. Patient remained stable on room air at 90%. At rest he continued to maintain saturation at 95% room air. Results discussed with patient. Patient will be discharged with prednisone. He will also be prophylactically treated with azithromycin. Patient will continue breathing treatments at home. He'll follow up with his primary care provider. Dr. Shell is my attending. - Lab Data Result diagrams: 03/10/22 10:18 03/10/22 10:18 Lab Results 03/10/22 03/10/22 03/10/22 Range/Units 10:18 10:18 10:18 WBC 3.4 L (3.8-10.6) k/uL RBC 3.65 L (4.30-5.90) m/uL Hgb 12.0 L (13.0-17.5) gm/dL Hct 34.6 L (39.0-53.0) % MCV 94.8 (80.0-100.0) fL MCH 32.8 (25.0-35.0) pg MCHC 34.6 (31.0-37.0) g/dL RDW 12.3 (11.5-15.5) % Plt Count 208 (150-450) k/uL MPV 8.2 Neutrophils % 68 % Lymphocytes % 16 % Monocytes % 10 % Eosinophils % 2 % Basophils % 1 % Neutrophils # 2.3 (1.3-7.7) k/uL Lymphocytes # 0.5 L (1.0-4.8) k/uL Monocytes # 0.4 (0-1.0) k/uL Eosinophils # 0.1 (0-0.7) k/uL Basophils # 0.0 (0-0.2) k/uL Sodium 140 (137-145) mmol/L Potassium 3.8 (3.5-5.1) mmol/L Chloride 105 (98-107) mmol/L Carbon Dioxide 26 (22-30) mmol/L Anion Gap 9 mmol/L BUN 12 (9-20) mg/dL Creatinine 0.83 (0.66-1.25) mg/dL Est GFR (CKD-EPI)AfAm >90 (>60 ml/min/1.73 sqM) Est GFR (CKD-EPI)NonAf >90 (>60 ml/min/1.73 sqM) Glucose 102 H (74-99) mg/dL Plasma Lactic Acid Jamin 1.0 (0.7-2.0) mmol/L Calcium 8.8 (8.4-10.2) mg/dL Total Bilirubin 0.5 (0.2-1.3) mg/dL AST 30 (17-59) U/L ALT 46 (4-49) U/L Alkaline Phosphatase 63 (38-126) U/L Troponin I (0.000-0.034) ng/mL NT-Pro-B Natriuret Pep pg/mL Total Protein 6.8 (6.3-8.2) g/dL Albumin 4.1 (3.5-5.0) g/dL Coronavirus (PCR) (Not Detectd) Influenza Type A RNA (Not Detectd) Influenza Type B (PCR) (Not Detectd) 03/10/22 03/10/22 03/10/22 Range/Units 10:18 10:18 10:18 WBC (3.8-10.6) k/uL RBC (4.30-5.90) m/uL Hgb (13.0-17.5) gm/dL Hct (39.0-53.0) % MCV (80.0-100.0) fL MCH (25.0-35.0) pg MCHC (31.0-37.0) g/dL RDW (11.5-15.5) % Plt Count (150-450) k/uL MPV Neutrophils % % Lymphocytes % % Monocytes % % Eosinophils % % Basophils % % Neutrophils # (1.3-7.7) k/uL Lymphocytes # (1.0-4.8) k/uL Monocytes # (0-1.0) k/uL Eosinophils # (0-0.7) k/uL Basophils # (0-0.2) k/uL Sodium (137-145) mmol/L Potassium (3.5-5.1) mmol/L Chloride (98-107) mmol/L Carbon Dioxide (22-30) mmol/L Anion Gap mmol/L BUN (9-20) mg/dL Creatinine (0.66-1.25) mg/dL Est GFR (CKD-EPI)AfAm (>60 ml/min/1.73 sqM) Est GFR (CKD-EPI)NonAf (>60 ml/min/1.73 sqM) Glucose (74-99) mg/dL Plasma Lactic Acid Jamin (0.7-2.0) mmol/L Calcium (8.4-10.2) mg/dL Total Bilirubin (0.2-1.3) mg/dL AST (17-59) U/L ALT (4-49) U/L Alkaline Phosphatase (38-126) U/L Troponin I (0.000-0.034) ng/mL NT-Pro-B Natriuret Pep 494 pg/mL Total Protein (6.3-8.2) g/dL Albumin (3.5-5.0) g/dL Coronavirus (PCR) Not Detected (Not Detectd) Influenza Type A RNA Not Detected (Not Detectd) Influenza Type B (PCR) Not Detected (Not Detectd) 03/10/22 03/10/22 Range/Units 10:18 14:50 WBC (3.8-10.6) k/uL RBC (4.30-5.90) m/uL Hgb (13.0-17.5) gm/dL Hct (39.0-53.0) % MCV (80.0-100.0) fL MCH (25.0-35.0) pg MCHC (31.0-37.0) g/dL RDW (11.5-15.5) % Plt Count (150-450) k/uL MPV Neutrophils % % Lymphocytes % % Monocytes % % Eosinophils % % Basophils % % Neutrophils # (1.3-7.7) k/uL Lymphocytes # (1.0-4.8) k/uL Monocytes # (0-1.0) k/uL Eosinophils # (0-0.7) k/uL Basophils # (0-0.2) k/uL Sodium (137-145) mmol/L Potassium (3.5-5.1) mmol/L Chloride (98-107) mmol/L Carbon Dioxide (22-30) mmol/L Anion Gap mmol/L BUN (9-20) mg/dL Creatinine (0.66-1.25) mg/dL Est GFR (CKD-EPI)AfAm (>60 ml/min/1.73 sqM) Est GFR (CKD-EPI)NonAf (>60 ml/min/1.73 sqM) Glucose (74-99) mg/dL Plasma Lactic Acid Jamin (0.7-2.0) mmol/L Calcium (8.4-10.2) mg/dL Total Bilirubin (0.2-1.3) mg/dL AST (17-59) U/L ALT (4-49) U/L Alkaline Phosphatase (38-126) U/L Troponin I <0.012 <0.012 (0.000-0.034) ng/mL NT-Pro-B Natriuret Pep pg/mL Total Protein (6.3-8.2) g/dL Albumin (3.5-5.0) g/dL Coronavirus (PCR) (Not Detectd) Influenza Type A RNA (Not Detectd) Influenza Type B (PCR) (Not Detectd) Disposition Clinical Impression: Sore throat, Body aches, Shortness of breath, Fever, Productive cough, COPD exacerbation Disposition: HOME SELF-CARE Condition: Good Instructions (If sedation given, give patient instructions): COPD (Chronic Obstructive Pulmonary Disease) (ED) Additional Instructions: Take medication as directed. Prednisone prescription will be started tomorrow. Continue nebulized albuterol treatments at home [id number] until shortness of breath resolves. Please follow up with primary care provider in one to 2 days. Return to the emergency department if you experience new, concerning, or worsening symptoms. Prescriptions: predniSONE 50 mg PO DAILY #5 tab Azithromycin [Zithromax] 500 mg PO DAILY #5 tab Is patient prescribed a controlled substance at d/c from ED?: No Referrals: Felix Burgos MD [Primary Care Provider] - 1-2 days
[2022-03-10] MEDS ORDERED: ASPIRIN 81 MG PO STA (10:46)
--- NOTE | 2022-03-10 11:12 | XR ---
EXAMINATION TYPE: XR chest 2V DATE OF EXAM: 03/10/2022 COMPARISON: 06/19/21 HISTORY: Shortness of breath TECHNIQUE: Frontal and lateral views of the chest are obtained. FINDINGS: Scattered senescent parenchymal changes noted. Hyperinflation compatible with COPD. No evidence for infiltrate. No evidence for atelectasis. Heart size is stable. Mediastinal structures are stable and grossly unremarkable. No evidence for hilar prominence. Degenerative changes dorsal spine. IMPRESSION: 1. No evidence for acute pulmonary disease.
[2022-03-10 11:15] LABS: Basophils % (A) 1 %; Eosinophils # (A) 0.1 k/uL (0-0.7); Eosinophils % (A) 2 %; HCT 34.6 % (39.0-53.0); Lymphocytes # (A) 0.5 k/uL (1.0-4.8); Lymphocytes % (A) 16 %; MCH 32.8 pg (25.0-35.0); MCHC 34.6 g/dL (31.0-37.0); MCV 94.8 fL (80.0-100.0); Mean Platelet Volume 8.2; Monocytes # (A) 0.4 k/uL (0-1.0); Monocytes % (A) 10 %; Neutrophils # (A) 2.3 k/uL (1.3-7.7); Neutrophils % (A) 68 %; Platelet Count 208 k/uL (150-450); RBC 3.65 m/uL (4.30-5.90); RDW 12.3 % (11.5-15.5); WBC 3.4 k/uL (3.8-10.6)
[2022-03-10 11:18] LABS: ALT 46 U/L (4-49); AST 30 U/L (17-59); African American GFR (CKD) >90 (>60 ml/min/1.73 sqM); Albumin 4.1 g/dL (3.5-5.0); Alkaline Phosphatase 63 U/L (38-126); Anion Gap 9 mmol/L; Blood Urea Nitrogen 12 mg/dL (9-20); Calcium 8.8 mg/dL (8.4-10.2); Carbon Dioxide 26 mmol/L (22-30); Chloride 105 mmol/L (98-107); Glucose 102 mg/dL (74-99); Non-African American GFR(CKD) >90 (>60 ml/min/1.73 sqM); Potassium 3.8 mmol/L (3.5-5.1); Sodium 140 mmol/L (137-145); Total Bilirubin 0.5 mg/dL (0.2-1.3); Total Protein 6.8 g/dL (6.3-8.2)
[2022-03-10] MEDS ORDERED: ALBUTEROL NEBULIZED 2.5 MG/3 ML INHALATION SCH (16:00)
[2022-03-10 16:32] VITALS: BP 103/69; PULSE 80; RESP 18; TEMP 98.3
== END 2022-03-10 16:59 | disposition home or self-care (01) ==
LOC: EC 09:31
DX: J44.1 Chronic obstructive pulmonary disease with (acute) exacerbation (principal); I11.0 Hypertensive heart disease with heart failure; I50.9 Heart failure, unspecified; Z87.891 Personal history of nicotine dependence; Z79.899 Other long term (current) drug therapy
CPT/HCPCS: 36415; 94640 ×2; 93005; 83880; 80053; 83605; 84484; 85025; 87040; 87502; 87635; 71046; 99285; 96365; 96366; 96375; J2930; J0456

== ENCOUNTER 2022-04-28 18:47 | Inpatient (IN) | payer OTHER ==
--- NOTE | 2022-04-28 19:19 | ED ---
Chest Pain HPI - General Chief Complaint: Chest Pain Stated Complaint: SVT Time Seen by Provider: 04/28/22 18:57 Source: patient, EMS Mode of arrival: EMS Limitations: no limitations - History of Present Illness Initial Comments: This patient is a 61-year-old man who presents here after his AICD had fired 6 times. Patient states that approximately one hour ago he had just finished placing starting around a trailer when he experienced the device going off a number of times in succession. The patient states that he had no premonitory symptoms. He did not note palpitations, chest pain, dyspnea, diaphoresis. Patient phoned EMS who brought him here for evaluation. EMS noted that he appeared to be in SVT, they did administer adenosine, and following that felt that the patient was in sinus rhythm. When I interview the patient, he is complaining only of aching in his left chest which he believes as a result of the defibrillator firing. He is not having any anginal type symptoms. MD Complaint: chest pain Onset/Timin -: hour(s) Onset: other Pain Location: left chest Pain Radiation: none Quality: aching Consistency: constant Improves With: nothing Worsens With: nothing Treatments Prior to Arrival: defibrillation - Related Data Home Medications Medication Instructions Recorded Confirmed Albuterol Sulfate [Ventolin HFA] 2 puff INHALATION RT-Q6H PRN 04/28/22 04/28/22 Atorvastatin [Lipitor] 80 mg PO DAILY 04/28/22 04/28/22 Enoxaparin [Lovenox] 40 mg SQ Q7D 04/28/22 04/29/22 Furosemide [Lasix] 20 mg PO DAILY 04/28/22 04/28/22 Ipratropium-Albuterol Nebulize 3 ml INHALATION RT-BID 04/28/22 04/28/22 [Duoneb 0.5 mg-3 mg/3 ml Soln] Nitroglycerin Sl Tabs [Nitrostat] 0.4 mg SUBLINGUAL Q5M PRN 04/28/22 04/28/22 Previous Rx's Medication Instructions Recorded Budesonide-Formot 160-4.5 Mcg 1 puff INHALATION RT-BID 30 Days 04/10/21 [Symbicort 160-4.5 Mcg Inhaler] #1 gm Spironolactone [Aldactone] 25 mg PO DAILY 90 Days #90 tab 04/10/21 Aspirin 81 mg PO DAILY 06/25/21 lisinopriL [Zestril] 2.5 mg PO DAILY 30 Days #30 tab 06/25/21 Metoprolol Succinate (ER) [Toprol 100 mg PO DAILY 30 Days #30 tab 05/01/22 XL] Mexiletine [Mexitil] 150 mg PO Q8HR 30 Days #30 cap 05/01/22 Sildenafil [Revatio] 20 mg PO TID 30 Days #90 tab 05/01/22 Allergies Allergy/AdvReac Type Severity Reaction Status Date / Time No Known Allergies Allergy Verified 04/28/22 20:55 Review of Systems ROS Statement: Those systems with pertinent positive or pertinent negative responses have been documented in the HPI. ROS Other: All systems not noted in ROS Statement are negative. Constitutional: Denies: fever, chills, weakness Respiratory: Denies: cough, dyspnea, wheezes Cardiovascular: Reports: as per HPI, chest pain. Denies: palpitations, orthopnea, edema, syncope Gastrointestinal: Denies: abdominal pain, nausea, vomiting, diarrhea Genitourinary: Denies: dysuria, hematuria Musculoskeletal: Denies: back pain Skin: Denies: rash Neurological: Denies: headache, weakness, numbness EKG Findings - EKG Results: EKG: interpreted by BO, sinus rhythm (Rate 99 bpm), normal ST/T - Blocks, [place], Hypertrophy, ST Abn: AV and intraventricular conduction: right bundle branch block (f ixed/intermittent, complete/incomplete) (Incomplete right bundle branch block) QRS axis and voltage: indeterminate axis Past Medical History Past Medical History: Heart Failure, COPD, Hyperlipidemia, Hypertension, Myocardial Infarction ([place]), Osteoarthritis ([place]), Syncope Additional Past Medical History / Comment(s): DVT L subclavian/surgically removed, nonischemic cardiomyopathy/AICD/pacer in place, past ETOH-no use since 04/2020 Last Myocardial Infarction Date:: 02/25/20 History of Any Multi-Drug Resistant Organisms: None Reported Past Surgical History: AICD, Appendectomy, Cholecystectomy, Heart Catheterization, Pacemaker Additional Past Surgical History / Comment(s): 04/27/21 lap cholecystectomy, L upper extremity venogram/thrombolysis/thrombectomy Past Anesthesia/Blood Transfusion Reactions: No Reported Reaction Type of Cardiac Device: Permanent Pacemaker, AICD Device Placement Date:: 05/01/20 Past Psychological History: No Psychological Hx Reported Smoking Status: Former smoker Past Alcohol Use History: None Reported Past Drug Use History: None Reported - Past Family History Mother Family Medical History: Cancer Additional Family Medical History / Comment(s): Cancer in jaw. Father Family Medical History: COPD General Exam Limitations: no limitations General appearance: alert, in no apparent distress Head exam: Present: atraumatic, normocephalic Eye exam: Present: normal appearance. Absent: scleral icterus, conjunctival injection Neck exam: Present: normal inspection, full ROM Respiratory exam: Present: normal lung sounds bilaterally. Absent: respiratory distress, wheezes, rales, rhonchi, stridor, accessory muscle use Cardiovascular Exam: Present: regular rate, normal rhythm, normal heart sounds. Absent: systolic murmur, diastolic murmur, rubs, gallop GI/Abdominal exam: Present: soft. Absent: distended, tenderness, guarding, rebound, rigid, mass Extremities exam: Present: normal inspection, normal capillary refill. Absent: pedal edema, calf tenderness Back exam: Present: normal inspection. Absent: CVA tenderness (R), CVA tenderness (L) Neurological exam: Present: alert Skin exam: Present: warm, dry, intact, normal color. Absent: rash Course Vital Signs 04/28/22 04/28/22 04/28/22 18:54 18:57 19:00 Temperature Pulse Rate 104 H 103 H 99 Respiratory 18 20 22 Rate Blood Pressure 148/96 148/96 O2 Sat by Pulse 98 97 97 Oximetry 04/28/22 04/28/22 04/28/22 19:10 19:20 19:30 Temperature Pulse Rate 98 86 98 Respiratory 18 17 18 Rate Blood Pressure 141/100 139/95 139/95 O2 Sat by Pulse 96 97 97 Oximetry 04/28/22 04/28/22 04/28/22 19:40 19:50 20:00 Temperature Pulse Rate 98 88 80 Respiratory 17 21 17 Rate Blood Pressure 140/106 134/88 134/88 O2 Sat by Pulse 96 97 98 Oximetry 04/28/22 04/28/22 04/28/22 20:10 20:20 20:30 Temperature Pulse Rate 78 79 89 Respiratory 17 16 19 Rate Blood Pressure 141/93 140/92 140/92 O2 Sat by Pulse 97 97 Oximetry 04/28/22 04/28/22 04/28/22 20:40 20:50 21:00 Temperature Pulse Rate 80 86 75 Respiratory 18 21 16 Rate Blood Pressure 152/101 145/98 145/98 O2 Sat by Pulse Oximetry 04/28/22 04/28/22 04/28/22 21:10 21:20 21:28 Temperature Pulse Rate 85 76 84 Respiratory 19 17 18 Rate Blood Pressure 141/98 141/93 141/90 O2 Sat by Pulse 97 Oximetry 04/28/22 04/28/22 04/28/22 21:30 21:40 21:50 Temperature Pulse Rate 83 78 78 Respiratory 20 17 19 Rate Blood Pressure 141/93 141/93 141/93 O2 Sat by Pulse Oximetry 04/28/22 04/28/22 04/28/22 22:00 22:10 22:20 Temperature Pulse Rate 80 80 82 Respiratory 21 17 17 Rate Blood Pressure 141/93 134/93 134/93 O2 Sat by Pulse Oximetry 04/28/22 04/28/22 04/28/22 22:30 22:40 22:50 Temperature Pulse Rate 80 85 81 Respiratory 20 20 19 Rate Blood Pressure 134/93 134/93 134/93 O2 Sat by Pulse Oximetry 04/28/22 04/28/22 04/28/22 23:00 23:10 23:20 Temperature Pulse Rate 80 86 82 Respiratory 18 20 19 Rate Blood Pressure 134/93 134/93 134/93 O2 Sat by Pulse Oximetry 04/28/22 04/28/22 04/28/22 23:30 23:40 23:50 Temperature Pulse Rate 88 81 80 Respiratory 19 19 19 Rate Blood Pressure 134/93 134/93 134/93 O2 Sat by Pulse Oximetry 04/29/22 04/29/22 04/29/22 00:00 00:10 00:20 Temperature Pulse Rate 82 84 Respiratory 19 19 Rate Blood Pressure 134/93 133/86 133/86 O2 Sat by Pulse Oximetry 04/29/22 04/29/22 04/29/22 00:30 00:40 00:50 Temperature Pulse Rate 81 81 89 Respiratory 19 19 22 Rate Blood Pressure 133/86 133/86 133/86 O2 Sat by Pulse Oximetry 04/29/22 04/29/22 01:00 02:50 Temperature 98 F Pulse Rate 80 82 Respiratory 16 18 Rate Blood Pressure 133/86 128/74 O2 Sat by Pulse 98 Oximetry Chest Pain MDM - MDM Chest x-ray is obtained which is interpreted by myself as showing no pulmonary infiltrate. There does not appear to be damage to the defibrillator leads. Patient is 61-year-old man here after his defibrillator fired 6 times. The patient is asymptomatic here other than some aching to the chest which he believes is as a result of the defibrillator. Case is discussed with patient's primary physician who will admit and have cardiology consultation. Was pt. sent in by a medical professional or institution? @ -no Did you speak to anyone other than the patient for history? @ -[no Did you review nursing and triage notes? @ -[agree Were old charts reviewed? @ -Previous record Differential Diagnosis? @ -[Differential diagnosis for defibrillator discharge includes: Cardiac ischemia, electrolyte abnormality, underlying cardiac arrhythmia, device failure EKG interpreted by me (3pts min.)? @ -See chart X-rays interpreted by me (1pt min.)? @ -[Suture CT interpreted by me (1pt min.)? @ -[none] U/S interpreted by me (1pt. min.)? @ -[none] What testing was considered but not performed? (CT, X-rays, U/S, labs)? Why? @ [no What meds were considered but not given? Why? @ -[none] Did you discuss the management of the patient with other professionals? @ -[Admitting physician Did you reconcile home meds? @ -[none] Was smoking cessation discussed for >3mins.? @ -[none] Was critical care preformed (if so, how long)? @ -[none] Were there social determinants of health that impacted care today? How? (H omelessness, low income, unemployed, alcoholism, drug addiction, transportation, low edu. Level, literacy, decrease access to med. care, assisted, rehab)? @ -[No Was there de-escalation of care discussed even if they declined? (Discuss DNR or withdrawal of care, Hospice)? @ -[No What co-morbidities impacted this encounter? (DM, HTN, Smoking, COPD, CAD, Cancer, CVA, Hep., AIDS, mental health diagnosis, sleep apnea, morbid obesity)? @ -[Cardiac arrhythmia Was patient admitted / discharged? @ -Admitted Undiagnosed new problem with uncertain prognosis? @ -[none] Drug Therapy requiring intensive monitoring for toxicity (Heparin, Nitro, Insulin, Cardizem)? @ -[none] Were any procedures done? @ -[none] Diagnosis/symptom? @ -[Defibrillator discharge Elevated troponin I Acute, or Chronic, or Acute on Chronic? @ -[Acute Uncomplicated (without systemic symptoms) or Complicated (systemic symptoms)? @ -[Uncomplicated Side effects of treatment? @ -[none] Exacerbation, Progression, or Severe Exacerbation] @ -[no] Poses a threat to life or bodily function? @ -[no] Critical Care Time Critical Care Time: Yes (30 minutes) Disposition Clinical Impression: AICD discharge, Elevated troponin I measurement Disposition: ADMITTED IP TO THIS [facility] Condition: Good
[2022-04-28 19:58] LABS: Basophils % (A) 0 %; Eosinophils # (A) 0.2 k/uL (0-0.7); Eosinophils % (A) 2 %; HCT 38.1 % (39.0-53.0); HGB 12.7 gm/dL (13.0-17.5); Lymphocytes # (A) 1.5 k/uL (1.0-4.8); Lymphocytes % (A) 19 %; MCH 30.8 pg (25.0-35.0); MCHC 33.3 g/dL (31.0-37.0); MCV 92.4 fL (80.0-100.0); Mean Platelet Volume 8.3; Monocytes # (A) 0.4 k/uL (0-1.0); Monocytes % (A) 5 %; Neutrophils # (A) 5.7 k/uL (1.3-7.7); Neutrophils % (A) 71 %; Platelet Count 238 k/uL (150-450); RBC 4.12 m/uL (4.30-5.90); RDW 12.7 % (11.5-15.5)
--- NOTE | 2022-04-28 20:01 | XR ---
EXAMINATION: XR chest 1V portable; 04/28/2022 7:51 PM CLINICAL INDICATION: PHH; chest pain TECHNIQUE: AP upright portable COMPARISON: 03/10/2022 FINDINGS: The lungs are clear. The pleural spaces are negative. Cardiac pacemaker and EKG leads noted. The cardiac silhouette is not enlarged. The remainder of the mediastinal silhouette is unremarkable. The skeletal structures and soft tissues are negative for acute findings. IMPRESSION: No acute process.
[2022-04-28 20:06] LABS: INR 0.9 (<1.2)
[2022-04-28 20:07] LABS: Partial Thromboplastin Time 24.5 sec (22.0-30.0)
[2022-04-28 20:14] LABS: ALT 27 U/L (4-49); AST 25 U/L (17-59); African American GFR (CKD) >90 (>60 ml/min/1.73 sqM); Alkaline Phosphatase 74 U/L (38-126); Anion Gap 5 mmol/L; Blood Urea Nitrogen 13 mg/dL (9-20); Calcium 8.5 mg/dL (8.4-10.2); Carbon Dioxide 23 mmol/L (22-30); Chloride 109 mmol/L (98-107); Glucose 95 mg/dL (74-99); Magnesium 1.8 mg/dL (1.6-2.3); Non-African American GFR(CKD) >90 (>60 ml/min/1.73 sqM); Sodium 137 mmol/L (137-145); Total Bilirubin 0.4 mg/dL (0.2-1.3); Total Protein 6.8 g/dL (6.3-8.2)
[2022-04-28] MEDS ORDERED: HEPARIN SODIUM 1,000 UN/ML (10ML VL) IV ONE (20:51)
[2022-04-28] MEDS ORDERED: NITROGLYCERIN SL TABS 0.4 MG TAB SUBLINGUAL PRN ×2 (20:51→23:48)
[2022-04-28] MEDS ORDERED: HEPARIN SOD,PORK IN 0.45% NACL 25,000 UNIT in 0.45% NACL 1 250ML.BAG IV SCH (21:00)
[2022-04-28] MEDS ORDERED: RX INFO: IV CONTRAST WAS GIVEN 1 EACH MISC MISCELLANE PRN (23:56)
--- NOTE | 2022-04-29 00:27 | HP ---
HISTORY AND PHYSICAL HISTORY OF PRESENT ILLNESS: A 61-year-old white male, AICD fired off 3-6 times. He was on his trailer, it zapped him 6 times. He came in to the hospital to be admitted for chest pain, rule out of [place] and AICD defibrillation 6 times. 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 ALLERGIES: Negative. HOME MEDICINES: 1. Ventolin HFA 2 puffs q.4h p.r.n. 2. Toprol-XL 50 mg daily. 3. Lipitor 80 mg daily. 4. Lovenox 40 mg subcu daily. 5. Lasix 20 mg daily. 6. DuoNeb q.i.d. 7. Nitrostat sublingual. ALLERGIES: A 14-point review of systems otherwise negative. EKG, sinus rhythm. PAST MEDICAL HISTORY: Heart failure, COPD, dyslipidemia, hypertension, myocardial infarction, osteoarthritis, and syncope. SURGERY: AICD, appendectomy, cholecystectomy, heart catheterization, and pacemaker. PHYSICAL EXAMINATION: VITAL SIGNS: Blood pressure 140s over 80s to 90s. Pulse is 84-103, respiratory rate 18 to 20, O2 97. CARDIOVASCULAR: S1-S2. LUNGS: Scattered rhonchi and wheeze. HEMATOLOGY: Negative for Homans. PSYCH: Fair mood and affect. NEUROLOGIC: Alert and oriented x3. OPHTHALMOLOGIC: Pupils equal, round, and reactive. ASSESSMENT: Status post defibrillation shocks 6 times, AICD discharge, elevated troponin COPD. Prognosis guarded. Get Cardiology consult. Home medications have been reordered. Prognosis guarded. MMODL / IJN: [id number] /
--- NOTE | 2022-04-29 00:58 | CT ---
EXAMINATION TYPE: CT chest w con DATE OF EXAM: 04/29/2022 COMPARISON: 09/15/2020 HISTORY: COPD, AICD DISCHARGE CT DLP: 436.8 mGycm Automated exposure control for dose reduction was used. CONTRAST: Performed with IV Contrast, patient injected with 100 mL of Isovue 300. Images obtained from the thoracic inlet to the diaphragm with the IV contrast. The lungs are clear of infiltrate. No pleural effusion. No pneumothorax. Heart size is normal. No per icardial effusion. There is left axillary pacemaker. No mediastinal adenopathy. There are no hilar masses. Thoracic aorta is intact. No evidence of aneury sm or dissection. No filling defect in the pulmonary arteries. The thoracic spine is intact with no compression fracture. Sternum is intact. IMPRESSION: Negative exam. No suspicious pulmonary mass. No evidence of pulmonary embolism. Normal heart and no a dverse change compared to old exam.
[2022-04-29] MEDS ORDERED: ALBUTEROL NEBULIZED 2.5 MG/3 ML INHALATION PRN (02:00)
[2022-04-29 03:42] LABS: Mean Platelet Volume 8.6; Platelet Count 247 k/uL (150-450)
[2022-04-29] MEDS: MORPHINE SULFATE 4 MG/ML SYRINGE IV PRN ×4 (03:44→18:00)
[2022-04-29] MEDS: SYMBICORT 160-4.5 MCG INHALER INHALATION SCH ×2 (07:53→20:34)
[2022-04-29] MEDS ORDERED: IPRATROPIUM-ALBUTEROL 3 ML NEB INHALATION SCH (08:00)
[2022-04-29] MEDS: SPIRONOLACTONE 25 MG TAB PO SCH (08:53)
[2022-04-29] MEDS: METOPROLOL SUCCINATE (ER) 100 MG TAB.ER.24H PO SCH (08:53)
[2022-04-29] MEDS: FUROSEMIDE 20 MG TAB PO SCH (08:53)
[2022-04-29] MEDS: ASPIRIN 81 MG PO SCH (08:54)
[2022-04-29] MEDS: ATORVASTATIN 80 MG TAB PO SCH (08:54)
[2022-04-29] MEDS ORDERED: ASPIRIN 325 MG TAB PO SCH (09:00)
[2022-04-29] MEDS ORDERED: METOPROLOL SUCCINATE (ER) 50 MG TAB.ER.24H PO SCH (09:00)
[2022-04-29] MEDS ORDERED: ENOXAPARIN 40 MG/0.4 ML SYRINGE SQ SCH (09:00)
[2022-04-29 09:01] LABS: Chol/HDL Ratio 3.26 Ratio; LDL Cholesterol,Calculated 88.2 mg/dL (0.0-131.0); VLDL Calculation 13.68 mg/dL (5.00-40.00)
[2022-04-29] MEDS: ACETAMINOPHEN TAB 325 MG TAB PO PRN ×2 (09:05→14:39)
--- NOTE | 2022-04-29 11:01 | P.CRDCN ---
History of Present Illness Consult date: 04/29/22 Reason for Consult (text): AICD discharge, elevated troponins History of present illness: History of present illness: This is a 61-year-old male with history of severe COPD, chronic heart failure stage D, nonischemic cardiomyopathy status post AICD, left axillary main thrombosis several weeks after ICD, hypertension, history of alcoholism in the past. Patient follows in the office with Dr. Thomas. We have been asked to see the patient due to AICD discharge and elevated troponins. Patient states that he had episode where ICD fired 6 times. Before the episode, he denies having any palpitations or any feeling that his heart was racing. He may have been a little bit lightheaded prior to the firing. He denies any chest pain. Patient has been taking all of his medications as prescribed. He states his breathing status has not been worsening and he does not have any lower extremity edema. He presented with a blood pressure 148/96 and heart rate of 103. EKG sinus rhythmwith right bundle branch block CTA of the chest negative for pulmonary embolism Chest x-ray negative for acute process Troponin 0.058, 0.169, 0.163. Hemoglobin 12.7. Potassium 4.0. Magnesium 1.8. BUN 13 and creatinine 0.7. Triglycerides 68, cholesterol 147, LDL 88, HDL 45 Echocardiogram 06/21/2021: EF 20-25%, mild mitral regurgitation, moderate tricuspid regurgitation, moderate pulmonary hypertension Single chamber AICD implantation 04/2020 ([employer]) Review Of Systems: At the time of my evaluation: Constitutional: No fever, no chills. No weakness, fatigue or lethargy. EENT: No headache. No dizziness. Lungs: No shortness of breath, cough, no sputum production. No wheezing. Cardiovascular: No chest pain, no lower extremity edema. No palpitations. No paroxysmal nocturnal dyspnea. No orthopnea. No lightheadedness or dizziness. No syncopal episodes. Abdominal: No abdominal pain. No nausea, vomiting. No diarrhea. No constipation. No bloody or tarry stools. Genitourinary: No dysuria.. No urinary retention. Musculoskeletal: No myalgias. No muscle weakness, no frequent falls. No back pain. No neck pain. Integumentary: No wounds. No rash. No unusual bruising. Neurologic: No aphasia. No facial droop. No change in mentation. No head injury. No headache. Psychiatric: No depression. No anxiety. Endocrine: No abnormal blood sugars. Physical examination: Gen: This is a 61-year-old male. He is resting in bed and appears to be comfortable and in no acute distress VS: reviewed HEENT: Head is atraumatic, normocephalic. Pupils equal, round. Sclerae is anicteric. NECK: Supple. No JVD. No lymphadenopathy. No thyromegaly. LUNGS: Clear to auscultation. No wheezes or rhonchi. No intercostal retractions. HEART: Regular rate and rhythm. No murmur. ABDOMEN: Soft. Bowel sounds are present. No masses. No tenderness. EXTREMITIES: No pedal edema. No calf tenderness. NEUROLOGICAL: Patient is awake, alert and oriented x3. Cranial nerves 2 through 12 are grossly intact. Assessment: AICD firing Nonischemic cardiomyopathy status post AICD COPD Plan: Discontinue heparin drip Increase Toprol to 100 mg daily Interrogate AICD Further recommendations to follow based upon clinical course Thank you kindly for this consultation. Nurse practitioner note has been reviewed, I agree with documented findings and plan of care. Patient was seen and examined. Past Medical History Past Medical History: Heart Failure, COPD, Hyperlipidemia, Hypertension, Myocardial Infarction (SD), Osteoarthritis (OA), Syncope Additional Past Medical History / Comment(s): DVT L subclavian/surgically removed, nonischemic cardiomyopathy/AICD/pacer in place, past ETOH-no use since 04/2020 Last Myocardial Infarction Date:: 02/25/20 History of Any Multi-Drug Resistant Organisms: None Reported Past Surgical History: AICD, Appendectomy, Cholecystectomy, Heart Catheterization, Pacemaker Additional Past Surgical History / Comment(s): 04/27/21 lap cholecystectomy, L upper extremity venogram/thrombolysis/thrombectomy Past Anesthesia/Blood Transfusion Reactions: No Reported Reaction Type of Cardiac Device: Permanent Pacemaker, AICD Device Placement Date:: 05/01/20 Past Psychological History: No Psychological Hx Reported Additional Psychological History / Comment(s): Pt resides with his sister. He uses no assistive device. He does not drive, his sister takes him places. Smoking Status: Former smoker Past Alcohol Use History: None Reported Additional Past Alcohol Use History / Comment(s): Pt started smoking in 1985 and quit 04/2020. He last drank alcohol 04/2020 Past Drug Use History: None Reported - Past Family History Mother Family Medical History: Cancer Additional Family Medical History / Comment(s): Cancer in jaw. Father Family Medical History: COPD Medications and Allergies Home Medications Medication Instructions Recorded Confirmed Type Budesonide-Formot 160-4.5 Mcg 1 puff INHALATION RT-BID 30 Days 04/10/21 04/28/22 Rx [Symbicort 160-4.5 Mcg Inhaler] #1 gm Spironolactone [Aldactone] 25 mg PO DAILY 90 Days #90 tab 04/10/21 04/28/22 Rx Metoprolol Succinate (ER) [Toprol 50 mg PO DAILY 06/19/21 04/28/22 History XL] Aspirin 81 mg PO DAILY 06/25/21 04/28/22 Rx lisinopriL [Zestril] 2.5 mg PO DAILY 30 Days #30 tab 06/25/21 04/28/22 Rx Albuterol Sulfate [Ventolin HFA] 2 puff INHALATION RT-Q6H PRN 04/28/22 04/28/22 History Atorvastatin [Lipitor] 80 mg PO DAILY 04/28/22 04/28/22 History Enoxaparin [Lovenox] 40 mg SQ DIRECTED 04/28/22 04/28/22 History Furosemide [Lasix] 20 mg PO DAILY 04/28/22 04/28/22 History Ipratropium-Albuterol Nebulize 3 ml INHALATION RT-BID 04/28/22 04/28/22 History [Duoneb 0.5 mg-3 mg/3 ml Soln] Nitroglycerin Sl Tabs [Nitrostat] 0.4 mg SUBLINGUAL Q5M PRN 04/28/22 04/28/22 History Allergies Allergy/AdvReac Type Severity Reaction Status Date / Time No Known Allergies Allergy Verified 04/28/22 20:55 Physical Exam Vitals: Vital Signs Temp Pulse Pulse Resp BP BP Pulse Ox 04/29/22 05:50 96.4 F L 04/29/22 04:00 96.1 F L 82 20 133/77 04/29/22 03:30 97 F L 82 20 133/77 96 04/29/22 02:50 98 F 82 18 128/74 98 04/29/22 01:00 80 16 133/86 04/29/22 00:50 89 22 133/86 04/29/22 00:40 81 19 133/86 04/29/22 00:30 81 19 133/86 04/29/22 00:20 84 19 133/86 04/29/22 00:10 133/86 04/29/22 00:00 82 19 134/93 04/28/22 23:50 80 19 134/93 04/28/22 23:40 81 19 134/93 04/28/22 23:30 88 19 134/93 04/28/22 23:20 82 19 134/93 04/28/22 23:10 86 20 134/93 04/28/22 23:00 80 18 134/93 04/28/22 22:50 81 19 134/93 04/28/22 22:40 85 20 134/93 04/28/22 22:30 80 20 134/93 04/28/22 22:20 82 17 134/93 04/28/22 22:10 80 17 134/93 04/28/22 22:00 80 21 141/93 04/28/22 21:50 78 19 141/93 04/28/22 21:40 78 17 141/93 04/28/22 21:30 83 20 141/93 04/28/22 21:28 84 18 141/90 97 04/28/22 21:20 76 17 141/93 04/28/22 21:10 85 19 141/98 04/28/22 21:00 75 16 145/98 04/28/22 20:50 86 21 145/98 04/28/22 20:40 80 18 152/101 04/28/22 20:30 89 19 140/92 04/28/22 20:20 79 16 140/92 97 04/28/22 20:10 78 17 141/93 97 04/28/22 20:00 80 17 134/88 98 04/28/22 19:50 88 21 134/88 97 04/28/22 19:40 98 17 140/106 96 04/28/22 19:30 98 18 139/95 97 04/28/22 19:20 86 17 139/95 97 04/28/22 19:10 98 18 141/100 96 04/28/22 19:00 99 22 148/96 97 04/28/22 18:57 103 H 20 148/96 97 04/28/22 18:54 104 H 18 98 Intake and Output 04/28/22 04/29/22 04/29/22 22:59 06:59 14:59 Intake Total 18.112 Output Total 400 Balance -381.888 Intake: Intake, IV Titration 18.112 Amount Heparin Sod,Pork in 0.45% 18.112 NaCl 25,000 unit In 0.45 % NaCl 1 250ml.bag @ 12 UNITS/KG/HR 8.981 mls/hr IV .Q24H [facility] Rx#: [id number] Output: Urine 400 Other: Voiding Method Urinal # Voids 1 Weight 74.843 kg 68.5 kg Results 04/29/22 03:26 04/28/22 19:36 Cardiac Enzymes 04/28/22 04/28/22 04/28/22 Range/Units 19:36 19:36 23:15 AST 25 (17-59) U/L Troponin I 0.058 H* 0.169 H* (0.000-0.034) ng/mL 04/29/22 Range/Units 03:26 AST (17-59) U/L Troponin I 0.163 H* (0.000-0.034) ng/mL Coagulation 04/28/22 04/28/22 04/29/22 Range/Units 19:36 21:41 06:24 PT 10.0 (9.0-12.0) sec APTT 24.5 158.8 H* 33.5 H (22.0-30.0) sec CBC 04/28/22 04/29/22 Range/Units 19:36 03:26 WBC 8.0 (3.8-10.6) k/uL RBC 4.12 L (4.30-5.90) m/uL Hgb 12.7 L (13.0-17.5) gm/dL Hct 38.1 L (39.0-53.0) % Plt Count 238 247 (150-450) k/uL Comprehensive Metabolic Panel 04/28/22 Range/Units 19:36 Sodium 137 (137-145) mmol/L Potassium 4.0 (3.5-5.1) mmol/L Chloride 109 H (98-107) mmol/L Carbon Dioxide 23 (22-30) mmol/L BUN 13 (9-20) mg/dL Creatinine 0.70 (0.66-1.25) mg/dL Glucose 95 (74-99) mg/dL Calcium 8.5 (8.4-10.2) mg/dL AST 25 (17-59) U/L ALT 27 (4-49) U/L Alkaline Phosphatase 74 (38-126) U/L Total Protein 6.8 (6.3-8.2) g/dL Albumin 4.0 (3.5-5.0) g/dL Current Medications Generic Name Dose Route Start Last Admin Trade Name Freq PRN Reason Stop Dose Admin Albuterol Sulfate 2.5 mg 04/29/22 02:00 Albuterol Nebulized 2.5 Mg/3 Ml INHALATION RT-Q6H PRN Shortness Of Breath Albuterol/Ipratropium 3 ml 04/29/22 08:00 Ipratropium-Albuterol 3 Ml Neb INHALATION RT-BID [facility] Aspirin 81 mg 04/29/22 09:00 Aspirin 81 Mg PO DAILY [facility] Atorvastatin Calcium 80 mg 04/29/22 09:00 Atorvastatin 80 Mg Tab PO DAILY [facility] Budesonide/Formoterol Fumarate 1 puff 04/29/22 08:00 Symbicort 160-4.5 Mcg Inhaler INHALATION RT-BID [facility] Furosemide 20 mg 04/29/22 09:00 Furosemide 20 Mg Tab PO DAILY [facility] Heparin Sodium/Sodium Chloride 250 mls @ 8.981 mls/hr 04/28/22 21:00 04/29/22 00:18 25,000 unit/ Sodium Chloride IV 9 units/kg/hr .Q24H [facility] 6.736 mls/hr Titration Protocol 12 UNITS/KG/HR Lisinopril 2.5 mg 04/29/22 09:00 Lisinopril 2.5 Mg Tab PO DAILY [facility] Metoprolol Succinate 50 mg 04/29/22 09:00 Metoprolol Succinate (Er) 50 Mg Tab.Er.24h PO DAILY [facility] Miscellaneous Information 1 each 04/28/22 23:56 Rx Info: Iv Contrast Was Given 1 Each Misc MISCELLANE 04/30/22 23:57 DAILY PRN Per Protocol Morphine Sulfate 4 mg 04/28/22 20:51 04/29/22 06:45 Morphine Sulfate 4 Mg/Ml Syringe IV 4 mg Q5M PRN Administration Chest Pain Nitroglycerin 0.4 mg 04/28/22 23:48 Nitroglycerin Sl Tabs 0.4 Mg Tab SUBLINGUAL Q5M PRN Chest Pain Spironolactone 25 mg 04/29/22 09:00 Spironolactone 25 Mg Tab PO DAILY [facility] Intake and Output 04/28/22 04/29/22 04/29/22 22:59 06:59 14:59 Intake Total 18.112 Output Total 400 Balance -381.888 Intake: Intake, IV Titration 18.112 Amount Heparin Sod,Pork in 0.45% 18.112 NaCl 25,000 unit In 0.45 % NaCl 1 250ml.bag @ 12 UNITS/KG/HR 8.981 mls/hr IV .Q24H [facility] Rx#: [id number] Output: Urine 400 Other: Voiding Method Urinal # Voids 1 Weight 74.843 kg 68.5 kg 04/29/22 03:26 04/28/22 19:36
--- NOTE | 2022-04-29 12:52 | CA ---
Transthoracic Echo Report Name: Phil Yap Age: 61 Gender: M : 1960 Exam Date: 04/29/2022 08:12 Exam Location: [place] [facility] Ht (in): 67 Wt (lb): 151 Ordering Physician: Felix Burgos MD Attending/Referring Phys: Etiology Teacher Donaldo Baron RDCS Procedure CPT: Indications: chf Cardiac Hx: Technical Quality: Fair Contrast 1: Total Dose (mL): Contrast 2: Total Dose (mL): MEASUREMENTS (Male / Female) Normal Values 2D ECHO LV Diastolic Diameter PLAX 5.4 cm 4.2 - 5.9 / 3.9 - 5.3 cm LV Systolic Diameter PLAX 4.0 cm IVS Diastolic Thickness 1.2 cm 0.6 - 1.0 / 0.6 - 0.9 cm LVPW Diastolic Thickness 1.0 cm 0.6 - 1.0 / 0.6 - 0.9 cm LV Relative Wall Thickness 0.4 RV Internal Dim ED PLAX 3.4 cm LV Diastolic Volume MOD 4C 112.9 cm??? LV Systolic Volume MOD 4C 63.6 cm??? LV Ejection Fraction MOD 4C 43.7 % LV Diastolic Length 4C 8.0 cm LV Systolic Length 4C 7.0 cm M-MODE Aortic Root Diameter MM 3.5 cm LA Systolic Diameter MM 4.5 cm LA Ao Ratio MM 1.3 MV E Point Septal Separation 1.0 cm AV Cusp Separation MM 2.4 cm DOPPLER AV Peak Velocity 113.2 cm/s AV Peak Gradient 5.1 mmHg LVOT Peak Velocity 64.5 cm/s LVOT Peak Gradient 1.7 mmHg MV Area PHT 4.8 cm??? MR Peak Velocity 158.2 cm/s MR Peak Gradient 10.0 mmHg Mitral E Point Velocity 62.7 cm/s Mitral A Point Velocity 72.7 cm/s Mitral E to A Ratio 0.9 MV Deceleration Time 159.4 ms TR Peak Velocity 212.8 cm/s TR Peak Gradient 18.1 mmHg Right Atrial Pressure 3.0 mmHg Pulmonary Artery Systolic Pressu 21.1 mmHg Right Ventricular Systolic Press 21.1 mmHg PV Peak Velocity 76.4 cm/s PV Peak Gradient 2.3 mmHg RVOT Diameter 4.2 cm FINDINGS Left Ventricle Mildly increased septal wall thickness. Left ventricular ejection fraction is estimated at 45-50 %. Right Ventricle Mild right ventricular dilatation. Right Atrium Catheter/pacemaker wire in the right atrial cavity. Left Atrium Mild left atrial dilatation. Mitral Valve Mild mitral regurgitation. Aortic Valve Trileaflet aortic valve. No aortic regurgitation. No aortic stenosis. Tricuspid Valve Mild tricuspid regurgitation. Pulmonic Valve Structurally normal pulmonic valve. Pericardium No pericardial or pleural effusion. Aorta Normal size aortic root and proximal ascending aorta. CONCLUSIONS Reduced LV systolic function ejection fraction 45% No definite regional wall motion abnormalities Previewed by: Dr. Jaguar Hester MD (Electronically Signed) Final Date: 29 April 2022 12:51
[2022-04-30] MEDS: MORPHINE SULFATE 4 MG/ML SYRINGE IV PRN ×4 (04:40→23:07)
--- NOTE | 2022-04-30 06:18 | P.PN ---
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 Patient follows in the office with Dr. Thomas. We have been asked to see the patient due to AICD discharge and elevated troponins. Patient states that he had episode where ICD fired 6 times. Before the episode, he denies having any palpitations or any feeling that his heart was racing. He may have been a l ittle bit lightheaded prior to the firing. He denies any chest pain. Patient has been taking all of his medications as prescribed. He states his breathing status has not been worsening and he does not have any lower extremity edema. He presented with a blood pressure 148/96 and heart rate of 103. EKG sinus rhythmwith right bundle branch block CTA of the chest negative for pulmonary embolism Chest x-ray negative for acute process Troponin 0.058, 0.169, 0.163. Hemoglobin 12.7. Potassium 4.0. Magnesium 1.8. BUN 13 and creatinine 0.7. Triglycerides 68, cholesterol 147, LDL 88, HDL 45 Echocardiogram 06/21/2021: EF 20-25%, mild mitral regurgitation, moderate tricuspid regurgitation, moderate pulmonary hypertension Single chamber AICD implantation 04/2020 ([employer]) April [id number] The patient was seen this morning. The AICD was interrogated and showed multiple episodes of VT/V. fib treated with shock. So the device was fired appropriately. Currently he is on maximize medical treatment and yesterday we increased the dose of beta shahram. I'm going to add mexiletine to the current medical regimen. An echocardiogram was performed and showed an EF between 40- 45%. Otherwise the patient remained stable. On examination he is euvolemic. He does have regular rhythm with clear breathing sounds bilaterally and no lower extremities edema noted Assessment: AICD firing Nonischemic cardiomyopathy status post AICD COPD Plan: Continue the current medical regimen including the current dose of beta shahram Add mexiletine to the current medical regimen Monitor the patient for additional 24-hour Objective - Vital Signs Vital signs: Vital Signs Temp 97.6 F 04/30/22 04:00 Pulse 70 04/30/22 04:00 Resp 17 04/30/22 04:00 BP 113/73 04/30/22 04:00 Pulse Ox 98 04/30/22 04:00 FiO2 21 04/29/22 07:57 Intake & Output 04/29/22 04/29/22 04/30/22 06:59 18:59 06:59 Intake Total 18.112 171.327 Output Total 400 700 200 Balance -381.888 -528.673 -200 Weight 68.5 kg Intake: Intake, IV Titration 18.112 53.327 Amount Heparin Sod,Pork in 0.45% 18.112 53.327 NaCl 25,000 unit In 0.45 % NaCl 1 250ml.bag @ 12 UNITS/KG/HR 8.981 mls/hr IV .Q24H [facility] Rx#: [id number] Oral 118 Output: Urine 400 700 200 Other: Voiding Method Urinal Urinal Urinal # Voids 1 - Labs CBC & Chem 7: 04/29/22 03:26 04/28/22 19:36 Labs: Abnormal Lab Results - Last 24 Hours (Table) 04/29/22 Range/Units 06:24 APTT 33.5 H (22.0-30.0) sec
[2022-04-30 07:17] LABS: Mean Platelet Volume 8.1; Platelet Count 247 k/uL (150-450)
[2022-04-30] MEDS: ACETAMINOPHEN TAB 325 MG TAB PO PRN ×2 (07:45→14:59)
[2022-04-30] MEDS: SPIRONOLACTONE 25 MG TAB PO SCH (07:46)
[2022-04-30] MEDS: ASPIRIN 81 MG PO SCH (07:46)
[2022-04-30] MEDS: MEXILETINE 150 MG CAP PO SCH ×3 (07:46→23:08)
[2022-04-30] MEDS: METOPROLOL SUCCINATE (ER) 100 MG TAB.ER.24H PO SCH (07:46)
[2022-04-30] MEDS: FUROSEMIDE 20 MG TAB PO SCH (07:46)
[2022-04-30] MEDS: ATORVASTATIN 80 MG TAB PO SCH (07:46)
[2022-04-30] MEDS: SYMBICORT 160-4.5 MCG INHALER INHALATION SCH ×2 (08:52→20:16)
[2022-04-30] MEDS: SILDENAFIL 20 MG TAB PO SCH ×2 (17:36→23:08)
--- NOTE | 2022-04-30 18:43 | US ---
EXAMINATION TYPE: US venous doppler duplex UE LT DATE OF EXAM: 04/30/2022 COMPARISON: 09/15/2020, 08/15/2020 CLINICAL HISTORY: Left upper extremity edema, recent AICD discharge. SIDE PERFORMED: Left arm Left Arm: Negative for DVT There is patency of the jugular subclavian axillary and brachial veins. IMPRESSION: Normal exam. No evidence of deep vein thrombosis in the left arm.
--- NOTE | 2022-05-01 00:08 | PN ---
PROGRESS NOTE DATE OF SERVICE: 04/29/2022 A 61-year-old white male. OBJECTIVE: VITAL SIGNS: O2 of 97, blood pressure is 100 over 60s, temperature 98.4, pulse 60s to 70s, respiratory rate 18 to 20. CARDIOVASCULAR: S1, S2. LUNGS: Scattered rhonchi and wheeze. HEMATOLOGY: Negative for Homans. PSYCH: Fair mood and affect. ASSESSMENT: Pulmonary hypertension, acute on chronic diastolic heart failure with ischemic cardiomyopathy. His echocardiogram is improved up to 45%. breathing, his updrafts, his inhalers. He takes Symbicort and Ventolin, possibly a Spiriva. to cut down on his arrhythmias. Continue with beta blockers. breathing difficulties. Prognosis is guarded. MMODL / IJN: [id number] /
[2022-05-01 05:51] LABS: Mean Platelet Volume 8.3; Platelet Count 271 k/uL (150-450)
--- NOTE | 2022-05-01 06:22 | P.PN ---
Subjective Progress Note Date: 05/01/22 Principal diagnosis: AICD shock This is a 61-year-old male with history of severe COPD, chronic heart failure stage D, nonischemic cardiomyopathy status post AICD, left axillary vein thrombosis several weeks after ICD, hypertension, history of alcoholism in the past. Patient follows in the office with Dr. Thomas. We have been asked to see the patient due to AICD discharge and elevated troponins. Patient states that he had episode where ICD fired 6 times. Before the episode, he denies having any palpitations or any feeling that his heart was racing. He may have been a l ittle bit lightheaded prior to the firing. He denies any chest pain. Patient has been taking all of his medications as prescribed. He states his breathing status has not been worsening and he does not have any lower extremity edema. He presented with a blood pressure 148/96 and heart rate of 103. EKG sinus rhythmwith right bundle branch block CTA of the chest negative for pulmonary embolism Chest x-ray negative for acute process Troponin 0.058, 0.169, 0.163. Hemoglobin 12.7. Potassium 4.0. Magnesium 1.8. BUN 13 and creatinine 0.7. Triglycerides 68, cholesterol 147, LDL 88, HDL 45 Echocardiogram 06/21/2021: EF 20-25%, mild mitral regurgitation, moderate tricuspid regurgitation, moderate pulmonary hypertension Single chamber AICD implantation 04/2020 ([employer]) April 302022 The patient was seen this morning. The AICD was interrogated and showed multiple episodes of VT/V. fib treated with shock. So the device was fired appropriately. Currently he is on maximize medical treatment and yesterday we increased the dose of beta shahram. I'm going to add mexiletine to the current medical regimen. An echocardiogram was performed and showed an EF between 40- 45%. Otherwise the patient remained stable. On examination he is euvolemic. He does have regular rhythm with clear breathing sounds bilaterally and no lower extremities edema noted May [id number] The patient was seen and evaluated this morning. Yesterday we added mexiletine to the current medical regimen. No more episodes of VT/V. fib overnight. He is asymptomatic from the cardiac standpoint of view, and he is also hemodynamically stable. The echo revealed an EF between 40-45%. The patient would like to go home. Assessment: AICD shock, appropriately for VT/V. fib Nonischemic cardiomyopathy status post AICD COPD Plan: Continue the current medical regimen including the current dose of beta shahram The patient would like to go home. He will follow-up with Dr. Thomas as an outpatient Objective - Vital Signs Vital signs: Vital Signs Temp 98.6 F 05/01/22 04:00 Pulse 67 05/01/22 04:00 Resp 18 05/01/22 04:00 BP 116/74 05/01/22 04:00 Pulse Ox 97 05/01/22 04:00 FiO2 21 04/29/22 07:57 Intake & Output 04/30/22 04/30/22 05/01/22 06:59 18:59 06:59 Intake Total 354 Output Total 200 300 Balance -200 354 -300 Intake: Oral 354 Output: Urine 200 300 Other: Voiding Method Urinal Urinal Urinal # Voids 2 2 # Bowel Movements 1 - Labs CBC & Chem 7: 05/01/22 05:34 04/28/22 19:36
[2022-05-01] MEDS: FUROSEMIDE 20 MG TAB PO SCH (07:35)
[2022-05-01] MEDS: METOPROLOL SUCCINATE (ER) 100 MG TAB.ER.24H PO SCH (07:36)
[2022-05-01] MEDS: SPIRONOLACTONE 25 MG TAB PO SCH (07:36)
[2022-05-01] MEDS: MORPHINE SULFATE 4 MG/ML SYRINGE IV PRN ×3 (07:36→22:07)
[2022-05-01] MEDS: ASPIRIN 81 MG PO SCH (07:36)
[2022-05-01] MEDS: ATORVASTATIN 80 MG TAB PO SCH (07:36)
[2022-05-01] MEDS: SILDENAFIL 20 MG TAB PO SCH ×3 (07:36→22:05)
[2022-05-01] MEDS: MEXILETINE 150 MG CAP PO SCH ×3 (07:36→23:27)
[2022-05-01] MEDS: SYMBICORT 160-4.5 MCG INHALER INHALATION SCH ×2 (07:59→19:47)
--- NOTE | 2022-05-01 16:43 | P.PN ---
Subjective Progress Note Date: 05/01/22 Principal diagnosis: AICD discharge Elevated troponin 61-year-old male with history of severe COPD, chronic heart failure stage D, nonischemic cardiomyopathy status post AICD, left axillary main thrombosis several weeks after ICD, hypertension, history of alcoholism in the past. Patient follows in the office with Dr. Thomas. We have been asked to see the patient due to AICD discharge and elevated troponins. Patient states that he had episode where ICD fired 6 times. Before the episode, he denies having any palpitations or any feeling that his heart was racing. He may have been a little bit lightheaded prior to the firing. He denies any chest pain. Patient has been taking all of his medications as prescribed. He states his breathing status has not been worsening and he does not have any lower extremity edema. He presented with a blood pressure 148/96 and heart rate of 103. EKG sinus rhythmwith right bundle branch block CTA of the chest negative for pulmonary embolism Chest x-ray negative for acute process Troponin 0.058, 0.169, 0.163. Hemoglobin 12.7. Potassium 4.0. Magnesium 1.8. BUN 13 and creatinine 0.7. Triglycerides 68, cholesterol 147, LDL 88, HDL 45 Echocardiogram 06/21/2021: EF 20-25%, mild mitral regurgitation, moderate tricuspid regurgitation, moderate pulmonary hypertension Single chamber AICD implantation 04/2020 (Medtronic) ----The patient was seen and evaluated this morning. Yesterday we added mexiletine to the current medical regimen. No more episodes of VT/V. fib overnight. He is asymptomatic from the cardiac standpoint of view, and he is also hemodynamically stable. The echo revealed an EF between 40-45%. Objective - Vital Signs Vital signs: Vital Signs Temp 97.9 F 05/01/22 07:31 Pulse 72 05/01/22 07:31 Resp 18 05/01/22 07:31 BP 129/79 05/01/22 07:31 Pulse Ox 96 05/01/22 07:31 FiO2 21 04/29/22 07:57 Intake & Output 04/30/22 05/01/22 05/01/22 18:59 06:59 18:59 Intake Total 354 354 Output Total 300 Balance 354 -300 354 Intake: Oral 354 354 Output: Urine 300 Other: Voiding Method Urinal Urinal Toilet Urinal # Voids 2 2 # Bowel Movements 1 - Exam HEENT: Head is atraumatic, normocephalic. Pupils equal, round. Sclerae is anicteric. NECK: Supple. No JVD. No lymphadenopathy. No thyromegaly. LUNGS: Clear to auscultation. No wheezes or rhonchi. No intercostal retractions. HEART: Regular rate and rhythm. No murmur. ABDOMEN: Soft. Bowel sounds are present. No masses. No tenderness. EXTREMITIES: No pedal edema. No calf tenderness. NEUROLOGICAL: Patient is awake, alert and oriented x3. Cranial nerves 2 through 12 are grossly intact. - Labs CBC & Chem 7: 05/01/22 05:34 04/28/22 19:36 Assessment and Plan Assessment: AICD firing appropriately for VT/V. fib Nonischemic cardiomyopathy status post AICD COPD Plan: Discontinue heparin drip Increase Toprol to 100 mg daily Interrogate AICD
[2022-05-02] MEDS: SYMBICORT 160-4.5 MCG INHALER INHALATION SCH (08:16)
[2022-05-02] MEDS: SPIRONOLACTONE 25 MG TAB PO SCH (09:20)
[2022-05-02] MEDS: ASPIRIN 81 MG PO SCH (09:20)
[2022-05-02] MEDS: ATORVASTATIN 80 MG TAB PO SCH (09:20)
[2022-05-02] MEDS: MEXILETINE 150 MG CAP PO SCH (09:21)
[2022-05-02] MEDS: FUROSEMIDE 20 MG TAB PO SCH (09:21)
[2022-05-02] MEDS: SILDENAFIL 20 MG TAB PO SCH (09:22)
[2022-05-02] MEDS: METOPROLOL SUCCINATE (ER) 100 MG TAB.ER.24H PO SCH (09:22)
[2022-05-02 10:20] VITALS: RESP 16; TEMP 98.2
--- NOTE | 2022-05-02 11:02 | P.PN ---
Subjective Progress Note Date: 05/02/22 HISTORY OF PRESENT ILLNESS: This is 61-year-old male who is a patient of Dr. Thomas in the office. The patient is admitted to the hospital secondary to AICD discharge. Patient was fo und to have VT/VF. The patient has a history of nonischemic myopathy with an ejection fraction 40-45%. The patient was examined this morning at the bedside. He denies chest pain or pressure. He denies shortness of breath. No further episodes of VT/VF. The patient is hoping to be discharged home today. PHYSICAL EXAM: VITAL SIGNS: Reviewed. GENERAL: Well-developed in no acute distress. NECK: Supple. No JVD or thyromegaly LUNGS: Respirations even and unlabored. Lungs essentially clear to auscultation bilaterally. HEART: Regular rate and rhythm. S1 and S2 heard. EXTREMITIES: Normal range of motion. No clubbing or cyanosis. Peripheral pulses intact. No lower extremity edema ASSESSMENT: VT/VF, status post AICD discharge Nonischemic cardiomyopathy, EF 40-45% COPD Hyperlipidemia PLAN: Continue current cardiac medications Patient is stable for discharge home today from a cardiac standpoint with close outpatient follow-up with Dr. Thomas Nurse practitioner note has been reviewed by physician. Signing provider agrees with the documented findings, assessment, and plan of care. Objective - Vital Signs Vital signs: Vital Signs Temp 98.2 F 05/02/22 08:00 Pulse 72 05/02/22 08:00 Resp 16 05/02/22 08:00 BP 102/70 05/02/22 08:00 Pulse Ox 98 05/02/22 08:16 FiO2 21 05/01/22 19:47 Intake & Output 05/01/22 05/02/22 05/02/22 18:59 06:59 18:59 Intake Total 1074 Balance 1074 Intake: Oral 1074 Other: Voiding Method Toilet Toilet Toilet Urinal Urinal Urinal # Voids 2 3 1 - Labs CBC & Chem 7: 05/01/22 05:34 04/28/22 19:36
[2022-05-02 12:35] VITALS: BP 115/73; PULSE 65
== END 2022-05-02 15:55 | disposition home or self-care (01) | DRG 308 ==
LOC: EC 18:47 → 3SCARD 20:51
PROVIDERS: ADMIT Family Medicine; ATTEND Family Medicine
DX: I47.1 Supraventricular tachycardia (principal); I50.33 Acute on chronic diastolic (congestive) heart failure; I42.8 Other cardiomyopathies; I11.0 Hypertensive heart disease with heart failure; I49.01 Ventricular fibrillation; E78.5 Hyperlipidemia, unspecified; Z86.718 Personal history of other venous thrombosis and embolism; I08.1 Rheumatic disorders of both mitral and tricuspid valves; J44.9 Chronic obstructive pulmonary disease, unspecified; F10.20 Alcohol dependence, uncomplicated; I25.2 Old myocardial infarction; I25.5 Ischemic cardiomyopathy; I27.20 Pulmonary hypertension, unspecified; I45.10 Unspecified right bundle-branch block; I50.84 End stage heart failure; R79.89 Other specified abnormal findings of blood chemistry; Z79.51 Long term (current) use of inhaled steroids; Z79.82 Long term (current) use of aspirin; Z79.899 Other long term (current) drug therapy; Z95.810 Presence of automatic (implantable) cardiac defibrillator; Z90.49 Acquired absence of other specified parts of digestive tract
CPT/HCPCS: 36415; 71045; 71260; 80053; 80061; 83735; 83880; 84443; 84484; 85025; 85049; 85610; 85730; 93005; 93306; 94640; 94760; 96365; 96366; 99291

== ENCOUNTER 2022-06-30 12:59 | Day surgery (SDC) | payer OTHER ==
[2022-06-28 14:33] VITALS: BMI 28.2
[~2022-06-30 12:59] MED LIST changes: -ACETAMINOPHEN TAB 500 MG TAB PO PRN; -HEPARIN SODIUM,PORCINE/PF 5,000 UNIT/0.5 ML SYRINGE SQ PRN; -MIDAZOLAM 2 MG/2 ML VIAL IV PRN; -ONDANSETRON 4 MG/2 ML VIAL IVP ONE; +ONDANSETRON 4 MG/2 ML VIAL IVP PRN; +SODIUM CHLORIDE 0.9% 1,000 ML IV SCH; +fentaNYL (PF) 50 MCG/ML 2 ML AMP IV PRN
[2022-06-30] MEDS ORDERED: HEPARIN SODIUM (1,000 UNIT/ML) 1,000 UNIT in SODIUM CHLORIDE 0.9% 1,000 ML IRRIGATION ONE (15:17)
[2022-06-30] MEDS ORDERED: LIDOCAINE 1% INJ 10MG/ML (20 ML MDV) ONE (15:57)
[2022-06-30] MEDS ORDERED: LIDOCAINE 1% INJ 10MG/ML (30 ML VIAL-PF) SQ ONE (16:00)
[2022-06-30] MEDS ORDERED: ADENOSINE 3 MG/ML 4 ML VIAL ONE (17:12)
[2022-06-30] MEDS ORDERED: HEPARIN SOD,PORK IN 0.45% NACL 25,000 UNIT in 0.45% NACL 1 250ML.BAG IV ONE (17:18)
[2022-06-30] MEDS ORDERED: ACETAMINOPHEN TAB 325 MG TAB PO PRN (19:38)
[2022-06-30] MEDS ORDERED: ACETAMINOPHEN IV (For NPO) 1,000 MG in EMPTY BAG 1 BAG IVPB ONE (19:38)
[2022-06-30] MEDS ORDERED: ALBUTEROL NEBULIZED 2.5 MG/3 ML INHALATION ONE (19:49)
--- NOTE | 2022-06-30 19:53 | P.HPCAR ---
History of Present Illness This is Dr. Hester dictating an H/P on this patient The patient was interviewed and examined IMPRESSION / ASSESSMENT: Recurrent atrial tachycardia with RVR, symptomatic with ICD shocks Recurrent atrial flutter with RVR, symptomatic with syncope History of cardio ejection fraction 45% Single-chamber ICD Medtronic cobalt device Severe pulmonary disease PLAN: Diagnostic EP study and atrial tachycardia and atrial flutter ablation Discontinue amiodarone thereafter Continue heart failure medications. Stop Midrin HPI Patient continues to have episodes of palpitations but he has not had any further episodes of syncope nor has he had any ICD shocks Denies any chest discomfort cough expectoration fever chills Denies any undue shortness of breath He does have severe lung disease and a short of breath at rest ROS: No fever chills or rigors, no cough, phlegm or expectoration, no nausea, vomiting or diarrhea, no hematuria, dysuria, no musculoskeletal complaints, no strokes or seizures, no skin lesions. EXAMINATION: On examination his temperature 90.7F, pulse rate in the 80s blood pressure 120/67 mmHg Heart sounds S1 and S2 are normal Breath sounds are reduced bilaterally no rhonchi no crackles Abdomen soft No JVD No lower extremity edema REVIEW OF LABS, ECG & MEDICAL DATA Current medications include ENTRESTO, metoprolol, Lasix, atorvastatin, ELIQUIS He also was prescribed Midrin Physical Exam Vitals: Vital Signs Temp Pulse Resp BP Pulse Ox 06/30/22 13:25 97 F L 81 18 120/67 96 Intake and Output 06/30/22 06/30/22 06/30/22 06:59 14:59 22:59 Intake Total 100 1538 Balance 100 1538 Intake: IV 100 1538 Other: Weight 80.6 kg Past Medical History Past Medical History: Heart Failure, COPD, Hyperlipidemia, Hypertension, Myocardial Infarction (SC), Osteoarthritis (OA), Sleep Apnea/CPAP/BIPAP, Syncope Additional Past Medical History / Comment(s): see Dr Hester's H&P,Parkinson's,no mobility devices,uses O2 @ 2 L NC at hs and uses prn during the day(insurance is not covering home oxygen-pt purchased an oxygen machine that makes it's own oxygen off of [employer]),will be starting cpap in 3 weeks, DVT L subclavian/surgically removed, nonischemic cardiomyopathy/AICD/pacer in place, past ETOH - no use since 04/2020 Last Myocardial Infarction Date:: 02/25/20 History of Any Multi-Drug Resistant Organisms: None Reported Past Surgical History: AICD, Appendectomy, Cholecystectomy, Heart Catheterization, Pacemaker Additional Past Surgical History / Comment(s): 04/27/21 lap cholecystectomy, L upper extremity venogram/thrombolysis/thrombectomy Past Anesthesia/Blood Transfusion Reactions: No Reported Reaction Type of Cardiac Device: Permanent Pacemaker, AICD Device Placement Date:: 05/01/20 Smoking Status: Former smoker - Past Family History Mother Family Medical History: Cancer Additional Family Medical History / Comment(s): Cancer in jaw. Father Family Medical History: COPD Physical Examination Vital Signs Temp Pulse Resp BP Pulse Ox 06/30/22 13:25 97 F L 81 18 120/67 96 Intake and Output 06/30/22 06/30/22 06/30/22 06:59 14:59 22:59 Intake Total 100 1538 Balance 100 1538 Intake: IV 100 1538 Other: Weight 80.6 kg Results Current Medications Generic Name Dose Route Start Last Admin Trade Name Freq PRN Reason Stop Dose Admin Acetaminophen 650 mg 06/30/22 19:38 Acetaminophen Tab 325 Mg Tab PO Q6HR PRN Mild Pain (Scale 1 to 3) Albuterol Sulfate 2.5 mg 06/30/22 20:00 Albuterol Nebulized 2.5 Mg/3 Ml INHALATION RT-BID [facility] Apixaban 5 mg 06/30/22 21:00 Apixaban 5 Mg Tab PO BID [facility] Protocol Atorvastatin Calcium 80 mg 07/01/22 09:00 Atorvastatin 80 Mg Tab PO DAILY [facility] Budesonide/Formoterol Fumarate 2 puff 07/01/22 08:00 Symbicort 160-4.5 Mcg Inhaler INHALATION RT-BID [facility] Carbidopa/Levodopa 1 each 06/30/22 22:00 Carbidopa-Levodopa 10-100 Mg 1 Each Tab PO TID [facility] Famotidine 20 mg 06/30/22 21:00 Famotidine 20 Mg Tab PO BID [facility] Fentanyl Citrate 50 mcg 06/30/22 07:00 Fentanyl (Pf) 50 Mcg/Ml 2 Ml Amp IV 06/30/22 23:00 Q3M PRN Phase I - Pain Control Furosemide 80 mg 07/01/22 06:00 Furosemide 80 Mg Tab PO DAILY@0600 [facility] Ipratropium [place] 0.5 mg 06/30/22 20:00 Ipratropium 0.5 Mg/2.5 Ml Nebu INHALATION RT-QID [facility] Levothyroxine Sodium 50 mcg 07/01/22 06:30 Levothyroxine 50 Mcg Tab PO DAILY@0630 [facility] Lidocaine HCl 0.1 ml 06/30/22 06:02 Lidocaine 1% (10mg/Ml) For Iv Start INTRADERMA 07/30/22 06:03 PER PROTOCOL PRN IV Start Metoprolol Succinate 25 mg 07/01/22 09:00 Metoprolol Succinate (Er) 25 Mg Tab.Er.24h PO DAILY [facility] Ondansetron HCl 4 mg 06/30/22 07:00 Ondansetron 4 Mg/2 Ml Vial IVP 06/30/22 23:00 ONCE PRN Phase 1 or 2 - Nausea/Vomiting Sacubitril/Valsartan 1 each 06/30/22 21:00 Sacubitril/Valsartan 24 Mg-26 Mg Tablet PO BID [facility] Sodium Chloride 12 ml 06/30/22 19:38 Sodium Chloride 0.9% Flush 10 Ml Syringe IV Q12HR PRN Line Flush Intake and Output 06/30/22 06/30/22 06/30/22 06:59 14:59 22:59 Intake Total 100 1538 Balance 100 1538 Intake: IV 100 1538 Other: Weight 80.6 kg Patient Weight 07/01/22 06:59 Weight 80.6 kg
--- NOTE | 2022-06-30 20:04 | P.EPPROC ---
- EP Procedure Note Electrophysiology Procedure Note: Diagnosis Recurrent atrial tachycardia with syncope History of cardio myopathy with a single chamber ICD, Medtronic cobalt device which is on advisory Final diagnosis Typical atrial flutter status post successful ablation in demonstration of bidirectional block differential pacing Inducible atrial tachycardia with RVR cycle length of 380 ms, micral reentry in the anterior-inferior wall of the left atrium close to the mitral annulus, 11 o'clock position in the [place] view Details Patient was brought to the EP lab in a fasting state. Written informed consent was obtained prior to the procedure. Procedures performed under general anesthesia IV antibiotics administered. His Medtronic cobalt device was interrogated and reprogrammed. VF therapies were turned off Thereafter at the end of the procedure VF therapies were turned back on and device was interrogated. Appropriate antitachycardia pacing cardioversion and defibrillation programmed We're sheaths placed in the right and left femoral veins. Diagnostic cath was placed in the high right atrium His bundle area coronary sinus right ventricle Intracardiac echo cath was placed Later Pentaray In the Mapping and Ablation Cath Was Placed At First, Diagnoses the Study Is Performed. Sinus Cycle Length 765 Ms, ND Interval 160 Ms, QRS 122 Ms QT Interval 460 Ms AH Interval 71 ms and HV interval 46 ms Sinus recovery times at 600, 500, and 400 ms were 1404, 1500. 3 and 1505 ms. Corresponding currently sinus node recovery times a prolonged AV node Wenckebach block 420 ms Parahisian pacing is performed and dennis response was noted Typical atrial flutter ablation was performed. 3-D electrical mapping was performed. Intracardiac echo was performed no pericardial effusion is noted. No left atrial thrombus noted The caval tricuspid isthmus was defined RF ablation was performed and a complete line of block was made Baseline was interrogated with differential pacing and complete bidirectional block was noted Following that EP study is performed to induce any other arrhythmias. Urinary induce a second arrhythmia with burst stimulation This is a had an eccentric activation Therefore Parahisian pacing was also given performed to confirm the absence of any retrogradely conducting accessory pathway A dennis response is noted Thereafter a Pentaray catheters used to map the right atrium. The right atrium did not have any early foci Intracardiac echo defined the fossa ovalis Transseptal catheterization was performed RA pressure 14/3/8 LA pressure 20/4/10 mmHg The tachycardia was difficult to induce and difficult to maintain. The patient was having bursts of tachycardia with termination either spontaneously or with catheter manipulation Therefore he took a very long time to mapped this tachycardia. The Pentaray capsulectomy placed at each position in the right atrium and the left atrium and the tachycardia was induced and mapping was performed painstakingly [id number] by site for these bursts of atrial tachycardia Isuprel was used to maintain the tachycardia and even then the tachycardia terminated with catheter manipulation Finally he was able to find the earliest site of activation with fractionated electrograms The site was localized to the anterior inferior left atrium close to the mitral annulus (around 11 o'clock position in the [place] view close to the mitral annulus) Isochronal maps were made and the zone of slow conduction was noted This appeared to be a micral reentrant tachycardia The entrance, isthmus and the exit sites were all ablated using 40 W of power and good contact force After ablation on capture was noted around the entire area that was ablated in the left atrial anterior wall Following that on Isuprel at system ablation burst stimulation was performed from multiple sites in the left atrium and the tachycardia could not be induced any further Patient tolerated the procedure well without any acute complications No pericardial effusion is noted the end of the procedure He was successfully extubated Sheaths were removed and access sites were closed with a Vascade closure device
[2022-06-30] MEDS: CARBIDOPA-LEVODOPA 10-100 MG 1 EACH TAB PO SCH (21:29)
[2022-06-30] MEDS: APIXABAN 5 MG TAB PO SCH (21:29)
[2022-06-30] MEDS: FAMOTIDINE 20 MG TAB PO SCH (21:29)
[2022-06-30] MEDS: SACUBITRIL/VALSARTAN 24 MG-26 MG TABLET PO SCH (21:29)
[2022-06-30] MEDS: IPRATROPIUM 0.5 MG/2.5 ML NEBU INHALATION SCH (21:33)
[2022-06-30] MEDS: ALBUTEROL NEBULIZED 2.5 MG/3 ML INHALATION SCH (21:33)
[2022-07-01] MEDS ORDERED: FUROSEMIDE 80 MG TAB PO SCH (06:00)
[2022-07-01] MEDS ORDERED: LEVOTHYROXINE 50 MCG TAB PO SCH (06:30)
[2022-07-01] MEDS: SACUBITRIL/VALSARTAN 24 MG-26 MG TABLET PO SCH (07:41)
--- NOTE | 2022-07-01 07:59 | P.DS ---
Providers Attending physician: Jaguar Hester Primary care physician: [facility] Course: Patient is resting comfortably in bed. He has been ambulating to the bathroom. He received Lasix 80 mg by mouth daily this morning and is urinating well On examination his blood pressure is 118/79 mmHg pulse rate is in the 70s Heart sounds S1 and S2 are normal and regular Breath sounds are reduced bilaterally with scattered rhonchi He is not short of breath He complains of a mild pleuritic chest discomfort, when he takes a deep breath in the upper chest Abdomen soft Extremities are warm Groins are tender but there is no hematoma no swelling Impression Patient was admitted last month with atrial tachycardia associated with syncope He underwent a diagnostic EP study yesterday The results were: 1. Typical atrial flutter status post successful ablation and tachycardia rendered noninducible 2. Inducible focal/localized micro- reentrant atrial tachycardia from the anterior wall of the left atrium, closest to the mitral annulus, 11 o'clock position in the [place] view, status post successful ablation. Tachycardia rendered noninducible History of nonischemic cardio myopathy in heart failure CHF class II chronic On guide line detected medical treatment Suggest 1 dose of colchicine 1.2 mg by mouth Patient received Lasix 80 mg by mouth for diuresis following IV administration through the procedure Continue anticoagulation Stop amiodarone Stop Midrin. (Midrin is counterproductive in patients with congestive heart failure even though it raises that blood pressure and seemingly allows for HF treatment. CHF exacerbation risk as well as mortality risk noted to be higher when systolic heart failure patients were treated with Midrin to raise their blood pressure) If patient's blood pressure is low on account of ENTRESTO (intolerance to to low blood pressure) then switch back to low dose losartan Continue Toprol Continue anticoagulation lifelong stroke prevention Stop amiodarone completely. Patient has severe lung disease He will need a follow-up LFT and TSH in 3-4 months since he was on oral amiodarone Follow-up with Dr. Thomas next week Patient Condition at Discharge: Stable Plan - Discharge Summary Discharge Rx Participant: No New Discharge Prescriptions: Discontinued RX: Midodrine [ProAmatine] 5 mg PO AC-BID 30 Days #60 tab RX: Amiodarone [Cordarone] 200 mg PO DAILY 30 Days #30 tab No Action RX: Ipratropium-Albuterol Nebulize [Duoneb 0.5 mg-3 mg/3 ml Soln] 3 ml INHALATION RT-BID RX: Furosemide [Lasix] 20 mg PO DAILY RX: Atorvastatin [Lipitor] 80 mg PO DAILY RX: Famotidine [Pepcid] 20 mg PO BID 90 Days #180 tab RX: Levothyroxine Sodium [Synthroid] 50 mcg PO DAILY@0630 90 Days #90 tab RX: Metoprolol Succinate (ER) [Toprol XL] 25 mg PO DAILY 90 Days #90 tab RX: Cyanocobalamin [Vitamin B-12] 1,000 mcg PO DAILY tab RX: Fluticasone/Umeclidin/Vilanter [Trelegy Ellipta 200-62.5-25] 1 puff INHALATION QAM Carbidopa/Levodopa [Parcopa 10-100 mg Odt] 1 tab PO TID RX: Albuterol Sulfate [Ventolin HFA] 2 puff INHALATION RT-Q6H PRN PRN Reason: Shortness Of Breath RX: Nitroglycerin Sl Tabs [Nitrostat] 0.4 mg SL Q5M PRN PRN Reason: Chest Pain RX: Apixaban [Eliquis] 5 mg PO BID #30 tab RX: Sacubitril/Valsartan [Entresto 24 mg-26 mg Tablet] 1 tab PO BID RX: Melatonin 3 mg PO HS PRN tab PRN Reason: Insomnia RX: ALPRAZolam [Xanax] 0.25 mg PO TID PRN 7 Days #21 tab PRN Reason: Anxiety Discharge Medication List RX: Albuterol Sulfate [Ventolin HFA] 2 puff INHALATION RT-Q6H PRN 04/28/22 [History] RX: Atorvastatin [Lipitor] 80 mg PO DAILY 04/28/22 [History] RX: Furosemide [Lasix] 20 mg PO DAILY 04/28/22 [History] RX: Ipratropium-Albuterol Nebulize [Duoneb 0.5 mg-3 mg/3 ml Soln] 3 ml INHALATION RT-BID 04/28/22 [History] RX: Nitroglycerin Sl Tabs [Nitrostat] 0.4 mg SL Q5M PRN 04/28/22 [History] RX: Apixaban [Eliquis] 5 mg PO BID #30 tab 05/14/22 [Rx] RX: Sacubitril/Valsartan [Entresto 24 mg-26 mg Tablet] 1 tab PO BID 05/25/22 [History] RX: ALPRAZolam [Xanax] 0.25 mg PO TID PRN 7 Days #21 tab 06/09/22 [Rx] RX: Cyanocobalamin [Vitamin B-12] 1,000 mcg PO DAILY tab 06/09/22 [Rx] RX: Famotidine [Pepcid] 20 mg PO BID 90 Days #180 tab 06/09/22 [Rx] RX: Levothyroxine Sodium [Synthroid] 50 mcg PO DAILY@0630 90 Days #90 tab 06/09/22 [Rx] RX: Melatonin 3 mg PO HS PRN tab 06/09/22 [Rx] RX: Metoprolol Succinate (ER) [Toprol XL] 25 mg PO DAILY 90 Days #90 tab 06/09/22 [Rx] Carbidopa/Levodopa [Parcopa 10-100 mg Odt] 1 tab PO TID 06/28/22 [History] RX: Fluticasone/Umeclidin/Vilanter [Trelegy Ellipta 200-62.5-25] 1 puff INHALATION QAM 06/28/22 [History] Follow up Appointment(s)/Referral(s): Tigre Thomas MD [STAFF PHYSICIAN] - 1 Week Activity/Diet/Wound Care/Special Instructions: Post EP study - Ablation instructions 1. Keep access sites dry for 2 days. 2. No heavy lifting or straining for 2 days. 3. Avoid bending the hips repeatedly for 2 days. 4. You may go up and down stairs slowly Call if the following is noted 1. Bleeding, increasing swelling or pain at the access sites. 2. Increasing chest discomfort, especially upon taking a deep breath. 3. Increasing shortness of breath, at rest or with exertion. 4. Undue cough / phlegm 5. Difficulty or pain while swallowing. 6. Pain or change in color in the extremities. 7. Fever, chills, rigors. 8. Increasing headache or neurologic symptoms. 9. Dizziness, fainting, palpitations Stop amiodarone Stop Midrin Discharge Disposition: HOME SELF-CARE
[2022-07-01] MEDS ORDERED: SYMBICORT 160-4.5 MCG INHALER INHALATION SCH (08:00)
[2022-07-01 08:48] VITALS: BP 105/68; RESP 17; TEMP 98.1
[2022-07-01] MEDS: FAMOTIDINE 20 MG TAB PO SCH (08:53)
[2022-07-01] MEDS: APIXABAN 5 MG TAB PO SCH (08:53)
[2022-07-01] MEDS: CARBIDOPA-LEVODOPA 10-100 MG 1 EACH TAB PO SCH (08:54)
[2022-07-01] MEDS ORDERED: METOPROLOL SUCCINATE (ER) 25 MG TAB.ER.24H PO SCH (09:00)
[2022-07-01] MEDS ORDERED: ATORVASTATIN 80 MG TAB PO SCH (09:00)
[2022-07-01] MEDS ORDERED: COLCHICINE 0.6 MG EACH PO SCH (09:00)
[2022-07-01] MEDS: ALBUTEROL NEBULIZED 2.5 MG/3 ML INHALATION SCH (09:37)
[2022-07-01] MEDS: IPRATROPIUM 0.5 MG/2.5 ML NEBU INHALATION SCH ×3 (09:37→16:29)
[2022-07-01 12:29] VITALS: PULSE 88
== END 2022-07-01 16:32 | disposition home or self-care (01) ==
LOC: CATHEP 12:59 → 6NMEDSUR 19:20 → CATHEP 07-01 16:32
PROVIDERS: ATTEND Internal Medicine Clinical Cardiac Electrophysiology
DX: I47.1 Supraventricular tachycardia (principal); I10 Essential (primary) hypertension; I25.2 Old myocardial infarction; I48.3 Typical atrial flutter; J44.9 Chronic obstructive pulmonary disease, unspecified
CPT/HCPCS: 94640 ×2; 93462; 93623; 93662; 93653; C1894; C1769 ×4; C1760; C1731; C1893; C1732; J2001; J1644 ×2

== ENCOUNTER 2022-07-02 15:38 | Inpatient (IN) | payer OTHER ==
[2022-07-02] MEDS ORDERED: HYDROmorphone 1 MG/ML 1 ML SYRINGE IVP STA ×2 (15:54→17:55)
[2022-07-02] MEDS ORDERED: IPRATROPIUM-ALBUTEROL 3 ML NEB INHALATION STA (15:55)
--- NOTE | 2022-07-02 16:08 | ED ---
Chest Pain HPI - General Chief Complaint: Chest Pain Stated Complaint: Post-op comp Time Seen by Provider: 07/02/22 15:43 Source: patient, family, RN notes reviewed, old records reviewed Mode of arrival: wheelchair Limitations: no limitations - History of Present Illness Initial Comments: 7-year-old male with a history of COPD heart disease among other medical issues who presents with complaints of left-sided sharp chest pain started around 10 AM this morning when he woke up he states she's been somewhat short of breath since chest today having some left-sided pain is worse today 8/10 severity does get worse with deep breathing he's had a cough with creamy brown phlegm fevers chills and sweats exertional dyspnea. No trauma reported. He is on blood thinners, Eliquis. Patient did have a ablation done 2 days ago. MD Complaint: chest pain, other - Related Data Home Medications Medication Instructions Recorded Confirmed Albuterol Sulfate [Ventolin HFA] 2 puff INHALATION RT-Q6H PRN 04/28/22 07/02/22 Atorvastatin [Lipitor] 80 mg PO DAILY 04/28/22 07/02/22 Furosemide [Lasix] 20 mg PO DAILY 04/28/22 07/02/22 Ipratropium-Albuterol Nebulize 3 ml INHALATION RT-BID 04/28/22 07/02/22 [Duoneb 0.5 mg-3 mg/3 ml Soln] Nitroglycerin Sl Tabs [Nitrostat] 0.4 mg SL Q5M PRN 04/28/22 07/02/22 Sacubitril/Valsartan [Entresto 24 1 tab PO BID 05/25/22 07/02/22 mg-26 mg Tablet] Fluticasone/Umeclidin/Vilanter 1 puff INHALATION RT-DAILY 06/28/22 07/02/22 [Trelegy Ellipta 200-62.5-25] ALPRAZolam [Xanax] 0.25 mg PO BID PRN 07/02/22 07/02/22 Budesonide/Formoterol Fumarate 2 puff INHALATION RT-BID 07/02/22 07/02/22 [Symbicort 160-4.5 Mcg Inhaler] Carbidopa-Levodopa 10-100 mg 1 tab PO TID 07/02/22 07/02/22 [Sinemet 10-100] Melatonin 5 mg PO HS PRN 07/02/22 07/02/22 Previous Rx's Medication Instructions Recorded Apixaban [Eliquis] 5 mg PO BID #30 tab 05/14/22 Cyanocobalamin [Vitamin B-12] 1,000 mcg PO DAILY tab 06/09/22 Famotidine [Pepcid] 20 mg PO BID 90 Days #180 tab 06/09/22 Levothyroxine Sodium [Synthroid] 50 mcg PO DAILY@0630 90 Days #90 06/09/22 tab Metoprolol Succinate (ER) [Toprol 25 mg PO DAILY 90 Days #90 tab 06/09/22 XL] Allergies Allergy/AdvReac Type Severity Reaction Status Date / Time No Known Allergies Allergy Verified 07/02/22 17:02 Review of Systems ROS Statement: Those systems with pertinent positive or pertinent negative responses have been documented in the HPI. ROS Other: All systems not noted in ROS Statement are negative. Past Medical History Past Medical History: Heart Failure, COPD, Hyperlipidemia, Hypertension, Myocardial Infarction (PA), Osteoarthritis (OA), Sleep Apnea/CPAP/BIPAP, Syncope Additional Past Medical History / Comment(s): see Dr Hester's H&P,Parkinson's,no mobility devices,uses O2 @ 2 L NC at hs and uses prn during the day(insurance is not covering home oxygen-pt purchased an oxygen machine that makes it's own oxygen off of [employer]),will be starting cpap in 3 weeks, DVT L subclavian/surgically removed, nonischemic cardiomyopathy/AICD/pacer in place, past ETOH - no use since 04/2020 Last Myocardial Infarction Date:: 02/25/20 History of Any Multi-Drug Resistant Organisms: None Reported Past Surgical History: AICD, Appendectomy, Cardiac Ablation, Cholecystectomy, Heart Catheterization, Pacemaker Additional Past Surgical History / Comment(s): 04/27/21 lap cholecystectomy, L upper extremity venogram/thrombolysis/thrombectomy Past Anesthesia/Blood Transfusion Reactions: No Reported Reaction Type of Cardiac Device: Permanent Pacemaker, AICD Device Placement Date:: 05/01/20 Past Psychological History: Anxiety Smoking Status: Former smoker Past Alcohol Use History: None Reported Past Drug Use History: None Reported - Past Family History Mother Family Medical History: Cancer Additional Family Medical History / Comment(s): Cancer in jaw. Father Family Medical History: COPD General Exam - General Exam Comments Initial Comments: This is a well-developed well-nourished awake alert oriented 4 male Limitations: no limitations General appearance: alert, anxious, in distress Head exam: Present: atraumatic, normocephalic, normal inspection Eye exam: Present: normal appearance, PERRL, EOMI. Absent: scleral icterus, conjunctival injection, periorbital swelling ENT exam: Present: normal exam, mucous membranes moist Neck exam: Present: normal inspection, full ROM, other. Absent: tenderness, meningismus, lymphadenopathy Respiratory exam: Present: normal lung sounds bilaterally, wheezes, chest wall tenderness, decreased breath sounds (Historyofbruits). Absent: respiratory distress, rales, rhonchi, stridor Cardiovascular Exam: Present: regular rate, normal rhythm, normal heart sounds. Absent: systolic murmur, diastolic murmur, rubs, gallop, clicks GI/Abdominal exam: Present: soft, normal bowel sounds. Absent: distended, tenderness, guarding, rebound, rigid Extremities exam: Present: normal inspection, full ROM, normal capillary refill. Absent: tenderness, pedal edema, joint swelling, calf tenderness Back exam: Present: normal inspection Neurological exam: Present: alert, oriented X3, CN II-XII intact Psychiatric exam: Present: normal affect, normal mood Skin exam: Present: warm, dry, intact, normal color. Absent: rash Course Vital Signs 07/02/22 07/02/22 07/02/22 15:38 16:06 16:15 Temperature 97.9 F Pulse Rate 93 90 84 Respiratory 20 18 Rate Blood Pressure 118/80 117/79 O2 Sat by Pulse 96 97 Oximetry 07/02/22 07/02/22 07/02/22 17:00 18:07 18:59 Temperature Pulse Rate 89 88 82 Respiratory 18 18 Rate Blood Pressure 115/75 114/79 129/85 O2 Sat by Pulse 96 97 99 Oximetry - Reevaluation(s) Reevaluation #1: 07/02/22 19:16 Patient did have reproducible chest pain (initially but with a lot of his second dose did not seem to help he was given fentanyl. Chest Pain MDM - MDM Imaging internal by me no acute processes. EKG interpreted by me sinus rhythm occasional PVCs rate 91. Interval 171 QRS duration 148 QT since QTC 393/442 left exodeviation right bundle-branch block pattern this is compared with an EKG dated 06/22/22 and also 2/Was pt. sent in by a medical professional or institution ([facility], [facility], urgent care, hospital, or half-way...) When possible be specific @ -No Did you speak to anyone other than the patient for history (EMS, parent, family, police, friend...)? What history was obtained from this source @ -No Did you review nursing and triage notes (agree or disagree)? Why? @ -I reviewed and agree with nursing and triage notes Were old charts reviewed (outside hosp., previous admission, EMS record, old EKG, old radiological studies, urgent care reports/EKG's, half-way records)? Report findings @ -No old charts were reviewed Differential Diagnosis (chest pain, altered mental status, abdominal pain women, abdominal pain men, vaginal bleeding, weakness, fever, dyspnea, syncope, headache, dizziness, GI bleed, back pain, seizure, CVA, palpatations, mental health, musculoskeletal)? @ -Chest pain, cough EKG interpreted by me (3pts min.). @ -As above X-rays interpreted by me (1pt min.). @ -As above CT interpreted by me (1pt min.). @ -None done U/S interpreted by me (1pt. min.). @ -None done What testing was considered but not performed or refused? (CT, X-rays, U/S, labs)? Why? @ -None What meds were considered but not given or refused? Why? @ -None Did you discuss the management of the patient with other professionals (professionals i.e. [facility], [facility], lab, RT, psych nurse, pediatric social worker, marketing services specialist, teacher, fiscal officer, family caseworker)? Give summary @ -No Was smoking cessation discussed for >3mins.? @ -No Was critical care preformed (if so, how long)? @ -No Were there social determinants of health that impacted care today? How? (Homelessness, low income, unemployed, alcoholism, drug addiction, transportation, low edu. Level, literacy, decrease access to med. care, senior care, rehab)? @ -No Was there de-escalation of care discussed even if they declined (Discuss DNR or withdrawal of care, Hospice)? DNR status @ -No What co-morbidities impacted this encounter? (DM, HTN, Smoking, COPD, CAD, Cancer, CVA, ARF, Chemo, Hep., AIDS, mental health diagnosis, sleep apnea, morbid obesity)? @ -Cardiac disease, a flutter, AICD, CHF, history of DVT Was patient admitted / discharged? Hospital course, mention meds given and route, prescriptions, significant lab abnormalities, going to OR and other pertinent info. @ -hospital course patient was admitted for inpatient evaluation pain control evaluation for elevated troponin Undiagnosed new problem with uncertain prognosis? @ -No Drug Therapy requiring intensive monitoring for toxicity (Heparin, Nitro, Insulin, Cardizem)? @ -No Were any procedures done? @ -No Diagnosis/symptom? @ -default chest wall pain, chest pain, febrile illness, bronchitis Acute, or Chronic, or Acute on Chronic? @ -Acute Uncomplicated (without systemic symptoms) or Complicated (systemic symptoms)? @ -default Side effects of treatment? @ -No Exacerbation, Progression, or Severe Exacerbation? @ -No Poses a threat to life or bodily function? How? (Chest pain, USA, PA, pneumonia, PE, COPD, DKA, ARF, appy, cholecystitis, CVA, Diverticulitis, Homicidal, Suicidal, threat to staff... and all critical care pts) @ -No with similar configuration. Patient continues to have intermittent chest pain he does have elevated troponin this may be likely secondary to the procedure. I did discuss the case with patient family and Dr. Molina patient be admitted for pain control also evaluation by cardiology. Patient cough with brown phlegm likely secondary to a bronchitis. Disposition Clinical Impression: Chest wall pain, Atypical chest pain, Elevated troponin, Bronchitis Disposition: ADMITTED IP TO THIS [facility] Condition: Stable Referrals: Felix Burgos MD [Primary Care Provider] - 1-2 days Decision Date: 07/02/22 Decision Time: 19:27
[2022-07-02 16:31] LABS: Basophils % (A) 0 %; Eosinophils # (A) 0.1 k/uL (0-0.7); Eosinophils % (A) 1 %; HCT 41.4 % (39.0-53.0); HGB 13.6 gm/dL (13.0-17.5); Lymphocytes # (A) 1.3 k/uL (1.0-4.8); Lymphocytes % (A) 14 %; MCH 30.7 pg (25.0-35.0); MCHC 32.9 g/dL (31.0-37.0); MCV 93.3 fL (80.0-100.0); Monocytes # (A) 0.7 k/uL (0-1.0); Monocytes % (A) 8 %; Neutrophils # (A) 6.9 k/uL (1.3-7.7); Neutrophils % (A) 75 %; Platelet Count 244 k/uL (150-450); RBC 4.43 m/uL (4.30-5.90); RDW 14.5 % (11.5-15.5); WBC 9.1 k/uL (3.8-10.6)
[2022-07-02 16:36] LABS: ALT 12 U/L (4-49); AST 21 U/L (17-59); African American GFR (CKD) >90 (>60 ml/min/1.73 sqM); Albumin 4.7 g/dL (3.5-5.0); Alkaline Phosphatase 62 U/L (38-126); Anion Gap 11 mmol/L; Blood Urea Nitrogen 22 mg/dL (9-20); Calcium 9.2 mg/dL (8.4-10.2); Carbon Dioxide 25 mmol/L (22-30); Chloride 105 mmol/L (98-107); Glucose 112 mg/dL (74-99); Lipase 34 U/L (23-300); Magnesium 2.2 mg/dL (1.6-2.3); Non-African American GFR(CKD) 79 (>60 ml/min/1.73 sqM); Potassium 4.3 mmol/L (3.5-5.1); Sodium 141 mmol/L (137-145); Total Bilirubin 0.8 mg/dL (0.2-1.3); Total Protein 7.8 g/dL (6.3-8.2)
--- NOTE | 2022-07-02 16:43 | XR ---
EXAMINATION TYPE: XR chest 2V DATE OF EXAM: 07/02/2022 COMPARISON: 06/01/2022 HISTORY: Chest pain TECHNIQUE: 2 views FINDINGS: Heart is normal. Lungs are clear of infiltrate. No heart failure. There is left axillary pa cemaker. No pleural effusion. IMPRESSION: No active cardiopulmonary disease. Normal heart. No change.
[2022-07-02 16:48] LABS: INR 0.9 (<1.2); Partial Thromboplastin Time 26.6 sec (22.0-30.0); Prothrombin Time 9.6 sec (9.0-12.0)
[2022-07-02] MEDS ORDERED: fentaNYL (PF) 50 MCG/ML 2 ML AMP IV STA (18:58)
[2022-07-02] MEDS ORDERED: NITROGLYCERIN SL TABS 0.4 MG TAB SUBLINGUAL PRN (19:27)
[2022-07-02] MEDS ORDERED: ALBUTEROL NEBULIZED 2.5 MG/3 ML INHALATION PRN (19:29)
[2022-07-02] MEDS: SODIUM CHLORIDE 0.9% 1,000 ML IV SCH (19:37)
[2022-07-02] MEDS ORDERED: IPRATROPIUM-ALBUTEROL 3 ML NEB INHALATION SCH (20:00)
[2022-07-02] MEDS: SYMBICORT 160-4.5 MCG INHALER INHALATION SCH (20:34)
[2022-07-02] MEDS: FAMOTIDINE 20 MG TAB PO SCH (21:02)
[2022-07-02] MEDS: APIXABAN 5 MG TAB PO SCH (21:03)
[2022-07-02] MEDS: MELATONIN 5 MG TABLET PO PRN (21:07)
[2022-07-02] MEDS: ALPRAZolam 0.25 MG TAB PO PRN (21:07)
[2022-07-02] MEDS: SACUBITRIL/VALSARTAN 24 MG-26 MG TABLET PO SCH (21:11)
[2022-07-02] MEDS: CARBIDOPA-LEVODOPA 10-100 MG 1 EACH TAB PO SCH (21:11)
[2022-07-02] MEDS: DOXYCYCLINE 100 MG CAP PO SCH (21:11)
[2022-07-02] MEDS: HYDROcodone/APAP 5-325MG 1 EACH TAB PO PRN (23:09)
[2022-07-02] MEDS: methylPREDNISolone SOD SUCCI 40 MG/ML 1 ML VIAL IV SCH (23:09)
[2022-07-03] MEDS: LEVOTHYROXINE 50 MCG TAB PO SCH (05:35)
[2022-07-03] MEDS: HYDROcodone/APAP 5-325MG 1 EACH TAB PO PRN ×3 (05:35→18:05)
[2022-07-03] MEDS ORDERED: IPRATROPIUM-ALBUTEROL 3 ML NEB INHALATION SCH (08:00)
[2022-07-03] MEDS ORDERED: NON FORMULARY DRUG (Fluticasone/Umeclidin/Vilanter [Trelegy Ellipta 200-62.5-25] 1 EACH Bl INHALATION SCH (08:00)
[2022-07-03] MEDS: SYMBICORT 160-4.5 MCG INHALER INHALATION SCH ×2 (08:09→20:33)
[2022-07-03] MEDS: ALBUTEROL NEBULIZED 2.5 MG/3 ML INHALATION SCH ×4 (08:09→20:33)
[2022-07-03] MEDS: IPRATROPIUM 0.5 MG/2.5 ML NEBU INHALATION SCH ×4 (08:09→20:33)
--- NOTE | 2022-07-03 08:12 | P.CRDCN ---
History of Present Illness Consult date: 07/03/22 Chief complaint: Chest discomfort History of present illness: The patient is a pleasant 61-year-old gentleman with a past medical history significant for history of nonischemic cardiomyopathy status post AICD as well as history of congestive heart failure and also history of atrial flutter status post ablation and also history of left axillary vein thrombosis presented to the hospital complaining of chest discomfort. On 06/30/2022 he underwent atrial flutter ablation. The procedure was successful and the patient was discharged in stable medical condition. He presented back to the hospital yesterday complaining of chest discomfort. The discomfort is in the middle of the chest as a sharp kind of discomfort clearly worse once he takes a deep breath and slightly better with sitting and leaning forward. The pain is not radiating to his arms or neck or shoulders or back. He stated that he did have a source of fever yesterday at home but he did not check his temperature. Beside the chest pain he has been experiencing increasing in the shortness of breath and he has been wheezing. He is known to have COPD. No dizziness or lightheadedness and no feeling of heart racing or fluttering and no presyncope or syncope. The EKG showed sinus rhythm with RBBB. The chest x-ray did not show any acute abnormalities. The troponin came in to be slightly elevated but does not seems to be consistent with acute coronary syndrome. On examination he is in mild respiratory distress with audible wheezing. He does have regular rhythm. No lower eczema his edema noted. Assessment Pleuritic chest discomfort likely secondary to a component of pericarditis Status post atrial flutter ablation Evidence of myocardial injury was no evidence of ischemia clinically or by EKG. This is chronic. History of nonischemic cardiomyopathy status post AICD Chronic obstructive pulmonary disease Plan Obtain an echocardiogram was Doppler to rule out any pericardial effusion Start the patient on colchicine 0.6 mg by mouth twice a day Treatment for COPD Continue anticoagulation Follow-up with the patient Past Medical History Past Medical History: Heart Failure, COPD, Hyperlipidemia, Hypertension, Myocardial Infarction (PA), Osteoarthritis (OA), Sleep Apnea/CPAP/BIPAP, Syncope Additional Past Medical History / Comment(s): see Dr Hester's H&P,Parkinson's,no mobility devices,uses O2 @ 2 L NC at hs and uses prn during the day(insurance is not covering home oxygen-pt purchased an oxygen machine that makes it's own oxygen off of [employer]),will be starting cpap in 3 weeks, DVT L subclavian/surgically removed, nonischemic cardiomyopathy/AICD/pacer in place, past ETOH - no use since 04/2020 Last Myocardial Infarction Date:: 02/25/20 History of Any Multi-Drug Resistant Organisms: None Reported Past Surgical History: AICD, Appendectomy, Cardiac Ablation, Cholecystectomy, Heart Catheterization, Pacemaker Additional Past Surgical History / Comment(s): 04/27/21 lap cholecystectomy, L upper extremity venogram/thrombolysis/thrombectomy Past Anesthesia/Blood Transfusion Reactions: No Reported Reaction Type of Cardiac Device: Permanent Pacemaker, AICD Device Placement Date:: 05/01/20 Past Psychological History: Anxiety Additional Psychological History / Comment(s): Pt resides with his sister. Smoking Status: Former smoker Past Alcohol Use History: None Reported Additional Past Alcohol Use History / Comment(s): Pt started smoking in 1985 and quit 04/2020. He last drank alcohol 04/2020 Past Drug Use History: None Reported - Past Family History Mother Family Medical History: Cancer Additional Family Medical History / Comment(s): Cancer in jaw. Father Family Medical History: COPD Medications and Allergies Home Medications Medication Instructions Recorded Confirmed Type Albuterol Sulfate [Ventolin HFA] 2 puff INHALATION RT-Q6H PRN 04/28/22 07/02/22 History Atorvastatin [Lipitor] 80 mg PO DAILY 04/28/22 07/02/22 History Furosemide [Lasix] 20 mg PO DAILY 04/28/22 07/02/22 History Ipratropium-Albuterol Nebulize 3 ml INHALATION RT-BID 04/28/22 07/02/22 History [Duoneb 0.5 mg-3 mg/3 ml Soln] Nitroglycerin Sl Tabs [Nitrostat] 0.4 mg SL Q5M PRN 04/28/22 07/02/22 History Apixaban [Eliquis] 5 mg PO BID #30 tab 05/14/22 07/02/22 Rx Sacubitril/Valsartan [Entresto 24 1 tab PO BID 05/25/22 07/02/22 History mg-26 mg Tablet] Cyanocobalamin [Vitamin B-12] 1,000 mcg PO DAILY tab 06/09/22 07/02/22 Rx Famotidine [Pepcid] 20 mg PO BID 90 Days #180 tab 06/09/22 07/02/22 Rx Levothyroxine Sodium [Synthroid] 50 mcg PO DAILY@0630 90 Days #90 06/09/22 07/02/22 Rx tab Metoprolol Succinate (ER) [Toprol 25 mg PO DAILY 90 Days #90 tab 06/09/22 07/02/22 Rx XL] Fluticasone/Umeclidin/Vilanter 1 puff INHALATION RT-DAILY 06/28/22 07/02/22 History [Trelegy Ellipta 200-62.5-25] ALPRAZolam [Xanax] 0.25 mg PO BID PRN 07/02/22 07/02/22 History Budesonide/Formoterol Fumarate 2 puff INHALATION RT-BID 07/02/22 07/02/22 History [Symbicort 160-4.5 Mcg Inhaler] Carbidopa-Levodopa 10-100 mg 1 tab PO TID 07/02/22 07/02/22 History [Sinemet 10-100] Melatonin 5 mg PO HS PRN 07/02/22 07/02/22 History Allergies Allergy/AdvReac Type Severity Reaction Status Date / Time No Known Allergies Allergy Verified 07/02/22 17:02 Physical Exam Vitals: Vital Signs Temp Pulse Pulse Resp BP BP Pulse Ox 07/03/22 07:41 85 07/03/22 07:35 98.0 F 83 18 113/73 95 07/03/22 04:56 82 18 110/76 97 07/02/22 23:55 90 07/02/22 23:41 90 07/02/22 23:13 83 18 115/86 98 07/02/22 20:11 88 07/02/22 20:09 98.1 F 85 18 110/73 96 07/02/22 20:05 96 07/02/22 20:03 91 07/02/22 19:39 92 20 107/64 97 07/02/22 18:59 82 18 129/85 99 07/02/22 18:07 88 18 114/79 97 07/02/22 17:00 89 115/75 96 07/02/22 16:15 84 07/02/22 16:06 90 18 117/79 97 07/02/22 15:38 97.9 F 93 20 118/80 96 Intake and Output 07/02/22 07/03/22 07/03/22 22:59 06:59 14:59 Intake Total 540 Output Total 350 Balance 540 -350 Intake: Oral 540 Output: Urine 350 Other: Voiding Method Toilet Toilet Toilet Urinal Urinal Urinal Weight 77.111 kg 79.4 kg Results 07/02/22 15:50 07/02/22 15:50 Cardiac Enzymes 07/02/22 07/02/22 07/02/22 Range/Units 15:50 15:50 19:47 AST 21 (17-59) U/L Troponin I 0.201 H* 0.189 H* (0.000-0.034) ng/mL 07/02/22 Range/Units 22:56 AST (17-59) U/L Troponin I 0.158 H* (0.000-0.034) ng/mL Coagulation 07/02/22 Range/Units 15:50 PT 9.6 (9.0-12.0) sec APTT 26.6 (22.0-30.0) sec CBC 07/02/22 Range/Units 15:50 WBC 9.1 (3.8-10.6) k/uL RBC 4.43 (4.30-5.90) m/uL Hgb 13.6 (13.0-17.5) gm/dL Hct 41.4 (39.0-53.0) % Plt Count 244 (150-450) k/uL Comprehensive Metabolic Panel 07/02/22 Range/Units 15:50 Sodium 141 (137-145) mmol/L Potassium 4.3 (3.5-5.1) mmol/L Chloride 105 (98-107) mmol/L Carbon Dioxide 25 (22-30) mmol/L BUN 22 H (9-20) mg/dL Creatinine 1.03 (0.66-1.25) mg/dL Glucose 112 H (74-99) mg/dL Calcium 9.2 (8.4-10.2) mg/dL AST 21 (17-59) U/L ALT 12 (4-49) U/L Alkaline Phosphatase 62 (38-126) U/L Total Protein 7.8 (6.3-8.2) g/dL Albumin 4.7 (3.5-5.0) g/dL Current Medications Generic Name Dose Route Start Last Admin Trade Name Freq PRN Reason Stop Dose Admin Hydrocodone Bitart/Acetaminophen 1 each 07/02/22 21:43 07/03/22 05:35 Hydrocodone/Apap 5-325mg 1 Each Tab PO 1 each Q6HR PRN Administration Pain Albuterol Sulfate 2.5 mg 07/02/22 19:29 07/02/22 23:40 Albuterol Nebulized 2.5 Mg/3 Ml INHALATION 2.5 mg RT-Q6H PRN Administration Shortness Of Breath Albuterol Sulfate 2.5 mg 07/03/22 08:00 Albuterol Nebulized 2.5 Mg/3 Ml INHALATION RT-QID GONZÁLEZ Alprazolam 0.25 mg 07/02/22 19:29 07/02/22 21:07 Alprazolam 0.25 Mg Tab PO 0.25 mg BID PRN Administration Anxiety Apixaban 5 mg 07/02/22 21:00 07/02/22 21:03 Apixaban 5 Mg Tab PO 5 mg BID [facility] Administration Protocol Aspirin 325 mg 07/03/22 09:00 Aspirin 325 Mg Tab PO DAILY [facility] Atorvastatin Calcium 80 mg 07/03/22 09:00 Atorvastatin 80 Mg Tab PO DAILY [facility] Budesonide/Formoterol Fumarate 2 puff 07/02/22 20:00 07/02/22 20:34 Symbicort 160-4.5 Mcg Inhaler INHALATION Not Given RT-BID [facility] Carbidopa/Levodopa 1 each 07/02/22 22:00 07/02/22 21:11 Carbidopa-Levodopa 10-100 Mg 1 Each Tab PO 1 each TID GONZÁLEZ Administration Colchicine 0.6 mg 07/03/22 09:00 Colchicine 0.6 Mg Each PO TID [facility] Cyanocobalamin 1,000 mcg 07/03/22 09:00 Cyanocobalamin 500 Mcg Tab PO DAILY [facility] Doxycycline Monohydrate 100 mg 07/02/22 21:00 07/02/22 21:11 Doxycycline 100 Mg Cap PO 100 mg BID [facility] Administration Protocol Famotidine 20 mg 07/02/22 21:00 07/02/22 21:02 Famotidine 20 Mg Tab PO 20 mg BID [facility] Administration Furosemide 20 mg 07/03/22 09:00 Furosemide 20 Mg Tab PO DAILY [facility] Sodium Chloride 1,000 mls @ 20 mls/hr 07/02/22 19:30 07/02/22 19:37 Saline 0.9% IV 20 mls/hr .Q24H GONZÁLEZ Administration Ipratropium [place] 0.5 mg 07/03/22 08:00 Ipratropium 0.5 Mg/2.5 Ml Nebu INHALATION RT-QID [facility] Levothyroxine Sodium 50 mcg 07/03/22 06:30 07/03/22 05:35 Levothyroxine 50 Mcg Tab PO 50 mcg DAILY@0630 [facility] Administration Melatonin 5 mg 07/02/22 19:29 07/02/22 21:07 Melatonin 5 Mg Tablet PO 5 mg HS PRN Administration Insomnia Methylprednisolone Sodium Succinate 40 mg 07/03/22 00:00 07/02/22 23:09 Methylprednisolone Sod Succi 40 Mg/Ml 1 Ml Vial IV 40 mg Q8HR GONZÁLEZ Administration Metoprolol Succinate 25 mg 07/03/22 09:00 Metoprolol Succinate (Er) 25 Mg Tab.Er.24h PO DAILY [facility] Nitroglycerin 0.4 mg 07/02/22 19:27 Nitroglycerin Sl Tabs 0.4 Mg Tab SUBLINGUAL Q5M PRN Chest Pain Sacubitril/Valsartan 1 each 07/02/22 21:00 07/02/22 21:11 Sacubitril/Valsartan 24 Mg-26 Mg Tablet PO 1 each BID GONZÁLEZ Administration Intake and Output 07/02/22 07/03/22 07/03/22 22:59 06:59 14:59 Intake Total 540 Output Total 350 Balance 540 -350 Intake: Oral 540 Output: Urine 350 Other: Voiding Method Toilet Toilet Toilet Urinal Urinal Urinal Weight 77.111 kg 79.4 kg 07/02/22 15:50 07/02/22 15:50
[2022-07-03] MEDS ORDERED: COLCHICINE 0.6 MG EACH PO SCH (09:00)
[2022-07-03 09:23] LABS: Chol/HDL Ratio 2.11 Ratio; VLDL Calculation 13.44 mg/dL (5.00-40.00)
[2022-07-03] MEDS: methylPREDNISolone SOD SUCCI 40 MG/ML 1 ML VIAL IV SCH ×2 (09:23→15:20)
[2022-07-03] MEDS: FAMOTIDINE 20 MG TAB PO SCH ×2 (09:23→21:53)
[2022-07-03] MEDS: FUROSEMIDE 20 MG TAB PO SCH (09:23)
[2022-07-03] MEDS: APIXABAN 5 MG TAB PO SCH ×2 (09:23→21:53)
[2022-07-03] MEDS: ATORVASTATIN 80 MG TAB PO SCH (09:23)
[2022-07-03] MEDS: METOPROLOL SUCCINATE (ER) 25 MG TAB.ER.24H PO SCH (09:23)
[2022-07-03] MEDS: ASPIRIN 325 MG TAB PO SCH (09:23)
[2022-07-03] MEDS: CYANOCOBALAMIN 500 MCG TAB PO SCH (09:23)
[2022-07-03] MEDS: DOXYCYCLINE 100 MG CAP PO SCH ×2 (09:24→21:54)
[2022-07-03] MEDS: SACUBITRIL/VALSARTAN 24 MG-26 MG TABLET PO SCH (09:24)
[2022-07-03] MEDS: COLCHICINE 0.6 MG EACH PO SCH ×2 (09:24→21:54)
[2022-07-03] MEDS: CARBIDOPA-LEVODOPA 10-100 MG 1 EACH TAB PO SCH ×3 (09:24→21:54)
--- NOTE | 2022-07-03 12:37 | HP ---
HISTORY AND PHYSICAL HISTORY OF PRESENT ILLNESS: Phil Yap came in with retractable chest pain last night. Cardiology saw him, thought he had pericarditis, put him on colchicine today and started him on steroids last night and pain control, pain is out of control. He is status post atrial ablation, the ICD did not go off. He says his pain is worse when he is leaning forward and pleuritic in nature most likely status post cardiac ablation with pericarditis. HOME MEDICINES: Reviewed. FAMILY HISTORY: Reviewed. SOCIAL HISTORY: Reviewed. REVIEW OF SYSTEMS: A 14-point review of systems negative except for mentioned in HPI. PAST SURGICAL HISTORY: Surgeries as mentioned, he is status post cardiac ablation. ASSESSMENT: Pleuritic chest discomfort secondary to pericarditis, status post atrial flutter, COPD, severe pulmonary hypertension, nonischemic cardiomyopathy, hypertension, dyslipidemia, myocardial infarction, sleep apnea. Continue current treatments. Prognosis guarded. Continue home medicines including, 1. Lasix. 2. Lipitor. 3. Ventolin. 4. DuoNeb. 5. Eliquis. 6. Nitroglycerin sublingual. 7. Pepcid. 8. Entresto. 9. Fluticasone. 10.Metoprolol. 11.Budesonide. 12.Sinemet. PROGNOSIS: Guarded. MMODL / IJN: [id number] /
[2022-07-03 16:26] LABS: Glucose,Whole Blood 153 mg/dL (70-110)
[2022-07-03] MEDS ORDERED: DEXTROSE 50% SYRINGE 50 ML IVP PRN ×2 (16:50)
[2022-07-03 20:18] LABS: Glucose,Whole Blood 155 mg/dL (70-110)
[2022-07-03] MEDS: INSULIN ASPART (NovoLOG) 100 UNIT/ML VIAL SQ SCH (21:49)
[2022-07-03] MEDS: MELATONIN 5 MG TABLET PO PRN (21:58)
[2022-07-03] MEDS: ALPRAZolam 0.25 MG TAB PO PRN (21:58)
[2022-07-04] MEDS: HYDROcodone/APAP 5-325MG 1 EACH TAB PO PRN ×4 (00:43→18:55)
[2022-07-04] MEDS: SACUBITRIL/VALSARTAN 24 MG-26 MG TABLET PO SCH ×2 (00:45→09:09)
[2022-07-04] MEDS: methylPREDNISolone SOD SUCCI 40 MG/ML 1 ML VIAL IV SCH ×2 (00:57→09:10)
[2022-07-04] MEDS: SODIUM CHLORIDE 0.9% 1,000 ML IV SCH (05:28)
[2022-07-04 06:11] LABS: Glucose,Whole Blood 154 mg/dL (70-110)
[2022-07-04] MEDS: LEVOTHYROXINE 50 MCG TAB PO SCH (06:30)
[2022-07-04] MEDS: INSULIN ASPART (NovoLOG) 100 UNIT/ML VIAL SQ SCH ×4 (06:32→21:39)
[2022-07-04] MEDS: ALBUTEROL NEBULIZED 2.5 MG/3 ML INHALATION SCH ×4 (08:09→20:46)
[2022-07-04] MEDS: IPRATROPIUM 0.5 MG/2.5 ML NEBU INHALATION SCH ×4 (08:09→20:46)
[2022-07-04] MEDS: SYMBICORT 160-4.5 MCG INHALER INHALATION SCH ×2 (08:09→20:46)
[2022-07-04] MEDS: APIXABAN 5 MG TAB PO SCH ×2 (09:09→21:39)
[2022-07-04] MEDS: FUROSEMIDE 20 MG TAB PO SCH (09:09)
[2022-07-04] MEDS: ASPIRIN 325 MG TAB PO SCH (09:09)
[2022-07-04] MEDS: DOXYCYCLINE 100 MG CAP PO SCH (09:10)
[2022-07-04] MEDS: METOPROLOL SUCCINATE (ER) 25 MG TAB.ER.24H PO SCH (09:10)
[2022-07-04] MEDS: CYANOCOBALAMIN 500 MCG TAB PO SCH (09:10)
[2022-07-04] MEDS: COLCHICINE 0.6 MG EACH PO SCH (09:10)
[2022-07-04] MEDS: CARBIDOPA-LEVODOPA 10-100 MG 1 EACH TAB PO SCH ×3 (09:10→21:39)
[2022-07-04] MEDS: FAMOTIDINE 20 MG TAB PO SCH ×2 (09:10→21:39)
[2022-07-04] MEDS: ATORVASTATIN 80 MG TAB PO SCH (09:11)
[2022-07-04 11:39] LABS: Glucose,Whole Blood 202 mg/dL (70-110)
--- NOTE | 2022-07-04 13:10 | P.PN ---
Subjective Progress Note Date: 07/04/22 The patient is a pleasant 61-year-old gentleman with a past medical history significant for history of nonischemic cardiomyopathy status post AICD as well as history of congestive heart failure and also history of atrial flutter status post ablation and also history of left axillary vein thrombosis presented to the hospital complaining of chest discomfort. On 06/30/2022 he underwent atrial flutter ablation. The procedure was successful and the patient was discharged in stable medical condition. He presented back to the hospital yesterday complaining of chest discomfort. The discomfort is in the middle of the chest as a sharp kind of discomfort clearly worse once he takes a deep breath and slig htly better with sitting and leaning forward. The pain is not radiating to his arms or neck or shoulders or back. He stated that he did have a source of fever yesterday at home but he did not check his temperature. Beside the chest pain he has been experiencing increasing in the shortness of breath and he has been wheezing. He is known to have COPD. No dizziness or lightheadedness and no feeling of heart racing or fluttering and no presyncope or syncope. The EKG showed sinus rhythm with RBBB. The chest x-ray did not show any acute abnormalities. The troponin came in to be slightly elevated but does not seems to be consistent with acute coronary syndrome. On examination he is in mild respiratory distress with audible wheezing. He does have regular rhythm. No lower extremity edema noted. 07/04 Patient denies any new concerns today. IV steroids will be discontinued as well as IV fluids, aspirin will be discontinued. Heart rate and blood pressure are both stable. commercial energy rater sinus rhythm. Physical Examination Gen: This is a 61-year-old male. He is resting on the edge of the bed and appears to be comfortable. No acute distress. HEENT: Head is atraumatic, normocephalic. Pupils equal, round. Sclerae is anicteric. LUNGS: Clear to auscultation. No wheezes or rhonchi. No intercostal retractions. HEART: Regular rate and rhythm. No murmur. ABDOMEN: Soft. EXTREMITIES: No pedal edema. No calf tenderness. NEUROLOGICAL: Patient is awake, alert and oriented x3. Assessment Pleuritic chest discomfort likely secondary to a component of pericarditis Status post atrial flutter ablation Evidence of myocardial injury was no evidence of ischemia clinically or by EKG. This is chronic. History of nonischemic cardiomyopathy status post AICD Chronic obstructive pulmonary disease Plan Continue the patient on colchicine 0.6 mg by mouth twice a day Continue anticoagulation Discontinue aspirin, IV fluids, steroids Patient is cleared for discharge from cardiology and may follow-up in the office in one to 2 weeks. Nurse practitioner note has been reviewed, I agree with the documented findings and plan of care. Patient was seen and examined. Objective - Vital Signs Vital signs: Vital Signs Temp 97.8 F 07/04/22 04:00 Pulse 86 07/04/22 08:12 Resp 16 07/04/22 04:00 BP 102/61 07/04/22 04:00 Pulse Ox 94 L 07/04/22 04:00 FiO2 Intake & Output 07/03/22 07/04/22 07/04/22 18:59 06:59 18:59 Intake Total 240 237 118 Balance 240 237 118 Intake: Oral 240 237 118 Other: Voiding Method Toilet Toilet Urinal Urinal # Voids 1 1 - Labs CBC & Chem 7: 07/02/22 15:50 07/02/22 15:50 Labs: Abnormal Lab Results - Last 24 Hours (Table) 07/02/22 07/03/22 07/03/22 Range/Units 15:50 16:25 20:17 POC Glucose (mg/dL) 153 H 155 H (70-110) mg/dL HDL Cholesterol 62.60 H (40.00-60.00) mg/dL 07/04/22 Range/Units 06:09 POC Glucose (mg/dL) 154 H (70-110) mg/dL HDL Cholesterol (40.00-60.00) mg/dL
--- NOTE | 2022-07-04 13:20 | CA ---
Transthoracic Echo Report Name: Phil Yap Age: 61 Gender: M : 1960 Exam Date: 07/04/2022 08:53 Exam Location: [facility] Ht (in): 66 Wt (lb): 170 Ordering Physician: Blanco Sterling MD ([id number]) Attending/Referring Phys: Ship Unloader Donaldo Baron RDCS Procedure CPT: Indications: CP Cardiac Hx: Technical Quality: Fair Contrast 1: Total Dose (mL): Contrast 2: Total Dose (mL): MEASUREMENTS (Male / Female) Normal Values 2D ECHO LV Diastolic Diameter PLAX 5.4 cm 4.2 - 5.9 / 3.9 - 5.3 cm LV Systolic Diameter PLAX 3.4 cm IVS Diastolic Thickness 1.3 cm 0.6 - 1.0 / 0.6 - 0.9 cm LVPW Diastolic Thickness 1.0 cm 0.6 - 1.0 / 0.6 - 0.9 cm LV Relative Wall Thickness 0.4 RV Internal Dim ED PLAX 4.2 cm LA Volume 43.4 cm??? 18 - 58 / 22 - 52 cm??? LA Volume Index 22.7 cm???/m??? 16 - 28 cm???/m??? M-MODE Aortic Root Diameter MM 3.2 cm AV Cusp Separation MM 1.8 cm DOPPLER LVOT Peak Velocity 74.8 cm/s LVOT Peak Gradient 2.2 mmHg MV Area PHT 5.8 cm??? Mitral E Point Velocity 59.0 cm/s Mitral A Point Velocity 69.0 cm/s Mitral E to A Ratio 0.9 MV Deceleration Time 130.2 ms TR Peak Velocity 201.9 cm/s TR Peak Gradient 16.3 mmHg Right Atrial Pressure 3.0 mmHg Pulmonary Artery Systolic Pressu 19.3 mmHg Right Ventricular Systolic Press 19.3 mmHg PV Peak Velocity 67.8 cm/s PV Peak Gradient 1.8 mmHg RVOT Diameter 4.3 cm FINDINGS Left Ventricle Mildly increased septal wall thickness. Left ventricular ejection fraction is estimated at 45-50%. Right Ventricle Mild right ventricular dilatation. Right Atrium Catheter/pacemaker wire in the right atrial cavity. Left Atrium Normal left atrial size. Mitral Valve Structurally normal mitral valve. No mitral regurgitation. Aortic Valve Trileaflet aortic valve. No aortic regurgitation. No aortic stenosis. Tricuspid Valve Structurally normal tricuspid valve. Mild tricuspid regurgitation. Pulmonic Valve Structurally normal pulmonic valve. Pericardium No pericardial or pleural effusion. Aorta Normal size aortic root and proximal ascending aorta. CONCLUSIONS Left ventricular ejection fraction 45-50% Mild increased left ventricular wall thickness Mild right ventricular dilation Mild tricuspid regurgitation RVSP 19 No pericardial effusion Previewed by: Dr. Devin Browne DO (Electronically Signed) Final Date: 04 July 2022 13:19
[2022-07-04 16:27] LABS: Glucose,Whole Blood 128 mg/dL (70-110)
[2022-07-04] MEDS: ALPRAZolam 0.25 MG TAB PO PRN (18:55)
[2022-07-04 20:24] LABS: Glucose,Whole Blood 120 mg/dL (70-110)
[2022-07-04] MEDS: MELATONIN 5 MG TABLET PO PRN (21:39)
[2022-07-05] MEDS: HYDROcodone/APAP 5-325MG 1 EACH TAB PO PRN ×4 (00:22→21:06)
[2022-07-05] MEDS: COLCHICINE 0.6 MG EACH PO SCH ×4 (00:23→21:07)
[2022-07-05] MEDS: DOXYCYCLINE 100 MG CAP PO SCH ×3 (00:23→21:05)
[2022-07-05] MEDS: SACUBITRIL/VALSARTAN 24 MG-26 MG TABLET PO SCH ×3 (00:23→21:05)
--- NOTE | 2022-07-05 03:13 | PN ---
PROGRESS NOTE SUBJECTIVE: This is a 61-year-old white male. He is on colchicine for pericarditis and steroids, IV Solu-Medrol pericarditis which is improving. The patient's echocardiogram, ejection fraction 45-50, mild tricuspid regurgitation, RSVP 19, no pericardial effusion. Continue current treatment. OBJECTIVE: CARDIOVASCULAR: S1, S2. LUNGS: Clear. GI: Soft. PLAN: Continue current treatments, colchicine with Solu-Medrol, chest pain slowly improved. MMODL / IJN: [id number] /
[2022-07-05] MEDS: LEVOTHYROXINE 50 MCG TAB PO SCH (06:20)
[2022-07-05 06:21] LABS: Glucose,Whole Blood 97 mg/dL (70-110)
[2022-07-05] MEDS: INSULIN ASPART (NovoLOG) 100 UNIT/ML VIAL SQ SCH ×4 (06:21→20:39)
[2022-07-05] MEDS: SYMBICORT 160-4.5 MCG INHALER INHALATION SCH ×2 (09:01→20:36)
[2022-07-05] MEDS: IPRATROPIUM 0.5 MG/2.5 ML NEBU INHALATION SCH ×4 (09:01→20:36)
[2022-07-05] MEDS: ALBUTEROL NEBULIZED 2.5 MG/3 ML INHALATION SCH ×4 (09:01→20:40)
[2022-07-05] MEDS: ATORVASTATIN 80 MG TAB PO SCH (09:18)
[2022-07-05] MEDS: APIXABAN 5 MG TAB PO SCH ×2 (09:18→21:06)
[2022-07-05] MEDS: METOPROLOL SUCCINATE (ER) 25 MG TAB.ER.24H PO SCH (09:18)
[2022-07-05] MEDS: FAMOTIDINE 20 MG TAB PO SCH ×2 (09:18→21:06)
[2022-07-05] MEDS: FUROSEMIDE 20 MG TAB PO SCH (09:18)
[2022-07-05] MEDS: CYANOCOBALAMIN 500 MCG TAB PO SCH (09:18)
[2022-07-05] MEDS: CARBIDOPA-LEVODOPA 10-100 MG 1 EACH TAB PO SCH ×3 (09:18→21:06)
[2022-07-05] MEDS: ALPRAZolam 0.25 MG TAB PO PRN (09:21)
[2022-07-05 11:46] LABS: Glucose,Whole Blood 96 mg/dL (70-110)
[2022-07-05 16:45] LABS: Glucose,Whole Blood 89 mg/dL (70-110)
[2022-07-05 20:17] LABS: Glucose,Whole Blood 96 mg/dL (70-110)
[2022-07-05] MEDS: MELATONIN 5 MG TABLET PO PRN (21:07)
--- NOTE | 2022-07-06 02:24 | PN ---
PROGRESS NOTE SUBJECTIVE: This is a 61-year-old white male, who says he cannot breathe. He has severe chest pain. He still remains on vancomycin and steroid taper. OBJECTIVE: CARDIOVASCULAR: S1, S2. LUNGS: Scattered wheeze x4. HEMATOLOGY: Negative Homans. PSYCH: Fair mood and affect. ASSESSMENT: Possible pericarditis, chronic obstructive pulmonary disease, acute hypoxemic respiratory distress. Continue current treatment. Treat for possible pericarditis. Prognosis guarded. MMODL / IJN: [id number] /
[2022-07-06 06:03] LABS: Glucose,Whole Blood 150 mg/dL (70-110)
[2022-07-06] MEDS: INSULIN ASPART (NovoLOG) 100 UNIT/ML VIAL SQ SCH ×4 (06:37→21:21)
[2022-07-06] MEDS: LEVOTHYROXINE 50 MCG TAB PO SCH (06:39)
[2022-07-06 08:14] LABS: Basophils % (A) 0 %; Eosinophils # (A) 0.1 k/uL (0-0.7); Eosinophils % (A) 2 %; HGB 12.3 gm/dL (13.0-17.5); Lymphocytes % (A) 46 %; MCH 30.9 pg (25.0-35.0); MCHC 32.3 g/dL (31.0-37.0); MCV 95.8 fL (80.0-100.0); Mean Platelet Volume 8.4; Monocytes # (A) 0.4 k/uL (0-1.0); Monocytes % (A) 7 %; Neutrophils # (A) 2.9 k/uL (1.3-7.7); Neutrophils % (A) 44 %; Platelet Count 292 k/uL (150-450); RBC 3.97 m/uL (4.30-5.90); RDW 14.2 % (11.5-15.5); WBC 6.6 k/uL (3.8-10.6)
[2022-07-06] MEDS: IPRATROPIUM 0.5 MG/2.5 ML NEBU INHALATION SCH ×4 (08:19→20:30)
[2022-07-06] MEDS: SYMBICORT 160-4.5 MCG INHALER INHALATION SCH ×2 (08:20→20:29)
[2022-07-06] MEDS: ALBUTEROL NEBULIZED 2.5 MG/3 ML INHALATION SCH ×4 (08:20→20:30)
[2022-07-06 08:27] LABS: ALT 20 U/L (4-49); AST 19 U/L (17-59); African American GFR (CKD) >90 (>60 ml/min/1.73 sqM); Albumin 3.6 g/dL (3.5-5.0); Alkaline Phosphatase 80 U/L (38-126); Anion Gap 7 mmol/L; Blood Urea Nitrogen 27 mg/dL (9-20); Calcium 8.8 mg/dL (8.4-10.2); Carbon Dioxide 24 mmol/L (22-30); Chloride 107 mmol/L (98-107); Glucose 101 mg/dL (74-99); Non-African American GFR(CKD) 87 (>60 ml/min/1.73 sqM); Potassium 4.3 mmol/L (3.5-5.1); Sodium 138 mmol/L (137-145); Total Bilirubin 0.3 mg/dL (0.2-1.3); Total Protein 6.5 g/dL (6.3-8.2)
[2022-07-06] MEDS: SACUBITRIL/VALSARTAN 24 MG-26 MG TABLET PO SCH ×2 (09:10→21:25)
[2022-07-06] MEDS: HYDROcodone/APAP 5-325MG 1 EACH TAB PO PRN ×2 (09:10→16:35)
[2022-07-06] MEDS: FAMOTIDINE 20 MG TAB PO SCH ×2 (09:11→21:25)
[2022-07-06] MEDS: CARBIDOPA-LEVODOPA 10-100 MG 1 EACH TAB PO SCH ×2 (09:11→16:32)
[2022-07-06] MEDS: ATORVASTATIN 80 MG TAB PO SCH (09:11)
[2022-07-06] MEDS: METOPROLOL SUCCINATE (ER) 25 MG TAB.ER.24H PO SCH (09:11)
[2022-07-06] MEDS: CYANOCOBALAMIN 500 MCG TAB PO SCH (09:11)
[2022-07-06] MEDS: FUROSEMIDE 20 MG TAB PO SCH (09:11)
[2022-07-06] MEDS: COLCHICINE 0.6 MG EACH PO SCH ×2 (09:11→21:25)
[2022-07-06] MEDS: DOXYCYCLINE 100 MG CAP PO SCH ×2 (09:11→21:25)
[2022-07-06] MEDS: ALPRAZolam 0.25 MG TAB PO PRN ×2 (09:18→21:25)
[2022-07-06] MEDS: APIXABAN 5 MG TAB PO SCH ×2 (10:21→21:25)
[2022-07-06 11:50] LABS: Glucose,Whole Blood 131 mg/dL (70-110)
[2022-07-06 16:25] LABS: Glucose,Whole Blood 156 mg/dL (70-110)
[2022-07-06 20:04] LABS: Glucose,Whole Blood 96 mg/dL (70-110)
[2022-07-06] MEDS: MELATONIN 5 MG TABLET PO PRN (21:28)
[2022-07-07] MEDS: CARBIDOPA-LEVODOPA 10-100 MG 1 EACH TAB PO SCH ×3 (00:28→16:26)
[2022-07-07 06:12] LABS: Glucose,Whole Blood 123 mg/dL (70-110)
[2022-07-07] MEDS: INSULIN ASPART (NovoLOG) 100 UNIT/ML VIAL SQ SCH ×3 (06:40→17:14)
[2022-07-07] MEDS: LEVOTHYROXINE 50 MCG TAB PO SCH (06:41)
[2022-07-07] MEDS: IPRATROPIUM 0.5 MG/2.5 ML NEBU INHALATION SCH ×3 (08:32→16:36)
[2022-07-07] MEDS: ALBUTEROL NEBULIZED 2.5 MG/3 ML INHALATION SCH ×3 (08:33→16:36)
[2022-07-07] MEDS: SYMBICORT 160-4.5 MCG INHALER INHALATION SCH (08:33)
[2022-07-07] MEDS: SACUBITRIL/VALSARTAN 24 MG-26 MG TABLET PO SCH (09:58)
[2022-07-07] MEDS: DOXYCYCLINE 100 MG CAP PO SCH ×2 (09:58→18:00)
[2022-07-07] MEDS: ALPRAZolam 0.25 MG TAB PO PRN (09:58)
[2022-07-07] MEDS: COLCHICINE 0.6 MG EACH PO SCH (09:58)
[2022-07-07] MEDS: CYANOCOBALAMIN 500 MCG TAB PO SCH (09:58)
[2022-07-07] MEDS: ATORVASTATIN 80 MG TAB PO SCH (09:59)
[2022-07-07] MEDS: METOPROLOL SUCCINATE (ER) 25 MG TAB.ER.24H PO SCH (09:59)
[2022-07-07] MEDS: HYDROcodone/APAP 5-325MG 1 EACH TAB PO PRN ×2 (09:59→16:29)
[2022-07-07] MEDS: FAMOTIDINE 20 MG TAB PO SCH (10:00)
[2022-07-07] MEDS: APIXABAN 5 MG TAB PO SCH (10:00)
[2022-07-07] MEDS: FUROSEMIDE 20 MG TAB PO SCH (10:00)
--- NOTE | 2022-07-07 10:19 | CDI ---
Documentation Clarification Form Date: 07/07/2022 10:08:56 AM From: Paula Olmedo RN CCDS Phone: [phone] Admit Date: 07/02/2022 7:31:00 PM Patient Name: Phil Yap Visit Number: [id number] Discharge Date: ATTENTION: The Clinical Documentation Specialists (CDI) and [facility] Coding Staff appreciate your assistance in clarifying documentation. Please respond to the clarification below the line at the bottom and electronically sign. The CDI & [facility] Coding staff will review the response and follow-up if needed. Please note: Queries are made part of the Legal Health Record. If you have any questions, please contact the author of this message via ITS. Dr. Felix Burgos Your patient has the documented diagnosis of unspecified CHF 07/03, cardiology consult. Additional information regarding the type, acuity of CHF is requested. History/Risk Factors: 61-year-old male presents to the ED for left sided sharp chest pain. Medical History: Heart Failure; HTN, [place] and HLD. 07/02, ED note. Clinical Indicators: VS/Pulse OX: B/P 118/80; HR 93; Temp 97.9 F Oral; RR 20; SpO2 96% room air BNP: 07/02 279 Echocardiogram Results:07/04 Left ventricular ejection fraction 45-50% Mild increased left ventricular wall thickness, Mild right ventricular dilation, Mild tricuspid regurgitation. Chest X Ray: 07/02 No active cardiopulmonary disease. Treatment: 07/03 Lasix 20mg PO Daily; 07/03 Toprol XL 25mg PO Daily. In your professional opinion, can you please clarify the acuity and type of CHF if known? [ ] Chronic Systolic Heart Failure (reduced EF) [ ] Chronic Diastolic Heart Failure (preserved EF) [ ] Chronic Systolic & Diastolic Heart Failure [ ] Other, please specify [ ] Unable to determine (Template Last Revised: May 2020) MTDD
[2022-07-07 11:32] LABS: Glucose,Whole Blood 97 mg/dL (70-110)
[2022-07-07 14:32] VITALS: BMI 28.8
[2022-07-07 16:15] LABS: Glucose,Whole Blood 92 mg/dL (70-110)
[2022-07-07 16:45] VITALS: BP 103/72; RESP 18; TEMP 98.1
[2022-07-07 16:52] VITALS: PULSE 70
== END 2022-07-07 18:35 | disposition home health service (06) | DRG 207 ==
LOC: EC 15:38 → 3SCARD 19:31 → OBSVTOIN 19:31 → 3SCARD 19:37
PROVIDERS: ADMIT Family Medicine; ATTEND Family Medicine
PROC: B246ZZ4 Ultrasonography of Right and Left Heart, Transesophageal (ICD-10-PCS; principal; 2022-07-02)
DX: I31.9 Disease of pericardium, unspecified (principal); G47.30 Sleep apnea, unspecified; I42.8 Other cardiomyopathies; E78.5 Hyperlipidemia, unspecified; I50.9 Heart failure, unspecified; I11.0 Hypertensive heart disease with heart failure; I5A Non-ischemic myocardial injury (non-traumatic); J44.9 Chronic obstructive pulmonary disease, unspecified; I07.1 Rheumatic tricuspid insufficiency; Z82.5 Family history of asthma and other chronic lower respiratory diseases; M19.90 Unspecified osteoarthritis, unspecified site; R55 Syncope and collapse; R06.03 Acute respiratory distress; I25.2 Old myocardial infarction; I27.20 Pulmonary hypertension, unspecified; I48.92 Unspecified atrial flutter; I45.10 Unspecified right bundle-branch block; Z79.01 Long term (current) use of anticoagulants; Z79.51 Long term (current) use of inhaled steroids; Z79.890 Hormone replacement therapy; Z79.899 Other long term (current) drug therapy; Z86.718 Personal history of other venous thrombosis and embolism; Z87.891 Personal history of nicotine dependence; Z95.810 Presence of automatic (implantable) cardiac defibrillator; Z90.49 Acquired absence of other specified parts of digestive tract
CPT/HCPCS: 36415; 71046; 80053; 80061; 83690; 83735; 83880; 84484; 85025; 85379; 85610; 85652; 85730; 86140; 93005; 93306; 94640; 94760; 96374; 96375; 96376; 99285

== ENCOUNTER 2022-07-11 17:12 | Inpatient (IN) | payer OTHER ==
[2022-07-11] MEDS ORDERED: ASPIRIN 81 MG PO STA (17:52)
[2022-07-11] MEDS ORDERED: NITROGLYCERIN OINT 1 INCH/GM PACKET TOPICAL STA (17:52)
--- NOTE | 2022-07-11 18:08 | ED ---
General Adult HPI - General Chief complaint: Chest Pain Stated complaint: Chest pain,dizzy Time Seen by Provider: 07/11/22 17:20 Source: patient, RN notes reviewed, old records reviewed Mode of arrival: wheelchair Limitations: no limitations - History of Present Illness Initial comments: This is a 61-year-old male who presents emergency Department complaining that last night he started having chest pain radiates to his back it's just above the epigastric region. Patient denies any shortness of breath patient states that last for about 5 minutes at a time and goes away and then eventually comes back particularly when he is exerting himself. Patient states when he sits down and rests it eventually goes away. Patient denies any recent fever chills or cough. Patient states he does have a pacemaker in place. Patient states he has high blood pressure high cholesterol. Patient denies any smoking or drinking. Patient states he her to be from his defibrillator and thought maybe it went off however he knows what it feels like when it went off and he states that it did not shock him or hurt him in any way shape or form - Related Data Home Medications Medication Instructions Recorded Confirmed Albuterol Sulfate [Ventolin HFA] 2 puff INHALATION RT-Q6H PRN 04/28/22 07/11/22 Atorvastatin [Lipitor] 80 mg PO DAILY 04/28/22 07/11/22 Furosemide [Lasix] 20 mg PO DAILY 04/28/22 07/11/22 Nitroglycerin Sl Tabs [Nitrostat] 0.4 mg SL Q5M PRN 04/28/22 07/11/22 Sacubitril/Valsartan [Entresto 24 1 tab PO BID 05/25/22 07/11/22 mg-26 mg Tablet] Fluticasone/Umeclidin/Vilanter 1 puff INHALATION RT-DAILY 06/28/22 07/11/22 [Trelegy Ellipta 200-62.5-25] ALPRAZolam [Xanax] 0.25 mg PO BID PRN 07/02/22 07/11/22 Budesonide/Formoterol Fumarate 2 puff INHALATION RT-BID 07/02/22 07/11/22 [Symbicort 160-4.5 Mcg Inhaler] Carbidopa-Levodopa 10-100 mg 1 tab PO TID 07/02/22 07/11/22 [Sinemet 10-100 mg] Melatonin 5 mg PO HS PRN 07/02/22 07/11/22 Ipratropium [place] 0.2 mg IH RT-BID 07/11/22 07/11/22 Previous Rx's Medication Instructions Recorded Apixaban [Eliquis] 5 mg PO BID #30 tab 05/14/22 Cyanocobalamin [Vitamin B-12] 1,000 mcg PO DAILY tab 06/09/22 Famotidine [Pepcid] 20 mg PO BID 90 Days #180 tab 06/09/22 Levothyroxine Sodium [Synthroid] 50 mcg PO DAILY@0630 90 Days #90 06/09/22 tab Metoprolol Succinate (ER) [Toprol 25 mg PO DAILY 90 Days #90 tab 06/09/22 XL] Albuterol Nebulized [Ventolin 2.5 mg INHALATION RT-QID 30 Days 07/07/22 Nebulized] #120 ml Colchicine [Colcrys] 0.6 mg PO BID 7 Days #14 each 07/07/22 Doxycycline [Vibramycin] 100 mg PO BID 7 Days #14 cap 07/07/22 Allergies Allergy/AdvReac Type Severity Reaction Status Date / Time No Known Allergies Allergy Verified 07/11/22 19:48 Review of Systems ROS Statement: Those systems with pertinent positive or pertinent negative responses have been documented in the HPI. ROS Other: All systems not noted in ROS Statement are negative. Past Medical History Past Medical History: Heart Failure, COPD, Hyperlipidemia, Hypertension, Myocardial Infarction ([place]), Osteoarthritis (OA), Sleep Apnea/CPAP/BIPAP, Syncope Additional Past Medical History / Comment(s): see Dr Hester's H&P,Parkinson's ,no mobility devices,uses O2 @ 2 L NC at hs and uses prn during the day(insurance is not covering home oxygen-pt purchased an oxygen machine that makes it's own oxygen off of [employer]),will be starting cpap in 3 weeks, DVT L subclavian/surgically removed, nonischemic cardiomyopathy/AICD/pacer in place, past ETOH - no use since 04/2020 Last Myocardial Infarction Date:: 02/25/20 History of Any Multi-Drug Resistant Organisms: None Reported Past Surgical History: AICD, Appendectomy, Cardiac Ablation, Cholecystectomy, Heart Catheterization, Pacemaker Additional Past Surgical History / Comment(s): 04/27/21 lap cholecystectomy, L upper extremity venogram/thrombolysis/thrombectomy Past Anesthesia/Blood Transfusion Reactions: No Reported Reaction Type of Cardiac Device: Permanent Pacemaker, AICD Device Placement Date:: 05/01/20 Past Psychological History: Anxiety Smoking Status: Former smoker Past Alcohol Use History: None Reported Past Drug Use History: None Reported - Past Family History Mother Family Medical History: Cancer Additional Family Medical History / Comment(s): Cancer in jaw. Father Family Medical History: COPD General Exam - General Exam Comments Initial Comments: GENERAL: Patient is well-developed and well-nourished. Patient is nontoxic and well- hydrated and is in mild distress. ENT: Neck is soft and supple. No significant lymphadenopathy is noted. Oropharynx is clear. Moist mucous membranes. Neck has full range of motion without eliciting any pain. EYES: The sclera were anicteric and conjunctiva were pink and moist. Extraocular movements were intact and pupils were equal round and reactive to light. Eye lids were unremarkable. PULMONARY: Unlabored respirations. Good breath sounds bilaterally. No audible rales rhonchi or wheezing was noted. CARDIOVASCULAR: There is a regular rate and rhythm without any murmurs gallops or rubs. ABDOMEN: Soft and nontender with normal bowel sounds. SKIN: Skin is clear with no lesions or rashes and otherwise unremarkable. NEUROLOGIC: Patient is alert and oriented x3. Cranial nerves II through XII are grossly intact. Motor and sensory are also intact. Normal speech, volume and content. Symmetrical smile. MUSCULOSKELETAL: Normal extremities with adequate strength and full range of motion. LYMPHATICS: No significant lymphadenopathy is noted PSYCHIATRIC: Normal psychiatric evaluation. Limitations: no limitations Course Vital Signs 07/11/22 07/11/22 07/11/22 17:18 18:29 19:17 Temperature 97.7 F Pulse Rate 93 74 71 Respiratory 20 20 14 Rate Blood Pressure 125/79 101/86 128/82 O2 Sat by Pulse 97 95 96 Oximetry Medical Decision Making - Medical Decision Making EKG was interpreted by myself shows sinus rhythm at 79 bpm SD interval is 165 QRSs 152 QT interval 412 QTC is 446 patient also has a right bundle branch block. Was pt. sent in by a medical professional or institution (, PA, CONTAINER MAKER, urgent care, hospital, or prison...) When possible be specific @ -No Did you speak to anyone other than the patient for history (EMS, parent, family, police, friend...)? What history was obtained from this source @ -No Did you review nursing and triage notes (agree or disagree)? Why? @ -I reviewed and agree with nursing and triage notes Were old charts reviewed (outside hosp., previous admission, EMS record, old EKG, old radiological studies, urgent care reports/EKG's, prison records)? Report findings @ -I reviewed prior EKGs prior lab work prior x-rays on this patient. Differential Diagnosis (chest pain, altered mental status, abdominal pain women, abdominal pain men, vaginal bleeding, weakness, fever, dyspnea, syncope, headache, dizziness, GI bleed, back pain, seizure, CVA, palpatations, mental h ealth, musculoskeletal)? @ -Differential Chest Pain: Stable Angina, Unstable Angina, STEMI, NSTEMI Aortic Dissection, Pneumothorax, Musculoskeletal, Esophageal Spasm GERD, Cholecystitis, Pancreatitis, Zoster, this is not meant to be an all-inclusive list. EKG interpreted by me (3pts min.). @ -As above X-rays interpreted by me (1pt min.). @ -Chest x-ray was interpreted by myself that showed no acute abnormality CT interpreted by me (1pt min.). @ -None done U/S interpreted by me (1pt. min.). @ -None done What testing was considered but not performed or refused? (CT, X-rays, U/S, labs)? Why? @ -None What meds were considered but not given or refused? Why? @ -None Did you discuss the management of the patient with other professionals (professionals i.e. , PA, CONTAINER MAKER, lab, RT, psych nurse, social services specialist, paper mill supervisor, teacher, armored vehicle officer, piano case maker)? Give summary @ -I spoke with the [facility] hospitalist and he agreed to accept the patient Was smoking cessation discussed for >3mins.? @ -No Was critical care preformed (if so, how long)? @ -No Were there social determinants of health that impacted care today? How? (Homelessness, low income, unemployed, alcoholism, drug addiction, transportation, low edu. Level, literacy, decrease access to med. care, fdc, rehab)? @ -No Was there de-escalation of care discussed even if they declined (Discuss DNR or withdrawal of care, Hospice)? DNR status @ -No What co-morbidities impacted this encounter? (DM, HTN, Smoking, COPD, CAD, Cancer, CVA, ARF, Chemo, Hep., AIDS, mental health diagnosis, sleep apnea, morbid obesity)? @ -None Was patient admitted / discharged? Hospital course, mention meds given and route, prescriptions, significant lab abnormalities, going to OR and other pertinent info. @ -Chest pain Undiagnosed new problem with uncertain prognosis? @ -No Drug Therapy requiring intensive monitoring for toxicity (Heparin, Nitro, Insuli n, Cardizem)? @ -No Were any procedures done? @ -No Diagnosis/symptom? @ -Chest pain Acute, or Chronic, or Acute on Chronic? @ -Acute Uncomplicated (without systemic symptoms) or Complicated (systemic symptoms)? @ -Complicated Side effects of treatment? @ -No Exacerbation, Progression, or Severe Exacerbation? @ -No Poses a threat to life or bodily function? How? (Chest pain, [place], [place], pneumonia, PE, COPD, DKA, ARF, appy, cholecystitis, CVA, Diverticulitis, Homicidal, Suicidal, threat to staff... and all critical care pts) @ -Yes this could lead to hypoperfusion and urinary dysfunction - Lab Data Result diagrams: 07/11/22 18:05 07/11/22 18:05 Lab Results 07/11/22 07/11/22 07/11/22 Range/Units 18:05 18:05 18:05 WBC 6.1 (3.8-10.6) k/uL RBC 4.21 L (4.30-5.90) m/uL Hgb 12.8 L (13.0-17.5) gm/dL Hct 38.3 L (39.0-53.0) % MCV 91.1 (80.0-100.0) fL MCH 30.4 (25.0-35.0) pg MCHC 33.4 (31.0-37.0) g/dL RDW 14.3 (11.5-15.5) % Plt Count 287 (150-450) k/uL MPV 8.7 Neutrophils % 52 % Lymphocytes % 35 % Monocytes % 8 % Eosinophils % 3 % Basophils % 0 % Neutrophils # 3.2 (1.3-7.7) k/uL Lymphocytes # 2.1 (1.0-4.8) k/uL Monocytes # 0.5 (0-1.0) k/uL Eosinophils # 0.2 (0-0.7) k/uL Basophils # 0.0 (0-0.2) k/uL PT 10.7 (9.0-12.0) sec INR 1.0 (<1.2) APTT 25.3 (22.0-30.0) sec Sodium 139 (137-145) mmol/L Potassium 4.1 (3.5-5.1) mmol/L Chloride 107 (98-107) mmol/L Carbon Dioxide 21 L (22-30) mmol/L Anion Gap 11 mmol/L BUN 19 (9-20) mg/dL Creatinine 0.96 (0.66-1.25) mg/dL Est GFR (CKD-EPI)AfAm >90 (>60 ml/min/1.73 sqM) Est GFR (CKD-EPI)NonAf 86 (>60 ml/min/1.73 sqM) Glucose 104 H (74-99) mg/dL Calcium 9.4 (8.4-10.2) mg/dL Magnesium 1.6 (1.6-2.3) mg/dL Total Bilirubin 0.6 (0.2-1.3) mg/dL AST 35 (17-59) U/L ALT 44 (4-49) U/L Alkaline Phosphatase 83 (38-126) U/L Troponin I (0.000-0.034) ng/mL Total Protein 7.2 (6.3-8.2) g/dL Albumin 4.3 (3.5-5.0) g/dL Lipase 45 (23-300) U/L 07/11/22 Range/Units 18:05 WBC (3.8-10.6) k/uL RBC (4.30-5.90) m/uL Hgb (13.0-17.5) gm/dL Hct (39.0-53.0) % MCV (80.0-100.0) fL MCH (25.0-35.0) pg MCHC (31.0-37.0) g/dL RDW (11.5-15.5) % Plt Count (150-450) k/uL MPV Neutrophils % % Lymphocytes % % Monocytes % % Eosinophils % % Basophils % % Neutrophils # (1.3-7.7) k/uL Lymphocytes # (1.0-4.8) k/uL Monocytes # (0-1.0) k/uL Eosinophils # (0-0.7) k/uL Basophils # (0-0.2) k/uL PT (9.0-12.0) sec INR (<1.2) APTT (22.0-30.0) sec Sodium (137-145) mmol/L Potassium (3.5-5.1) mmol/L Chloride (98-107) mmol/L Carbon Dioxide (22-30) mmol/L Anion Gap mmol/L BUN (9-20) mg/dL Creatinine (0.66-1.25) mg/dL Est GFR (CKD-EPI)AfAm (>60 ml/min/1.73 sqM) Est GFR (CKD-EPI)NonAf (>60 ml/min/1.73 sqM) Glucose (74-99) mg/dL Calcium (8.4-10.2) mg/dL Magnesium (1.6-2.3) mg/dL Total Bilirubin (0.2-1.3) mg/dL AST (17-59) U/L ALT (4-49) U/L Alkaline Phosphatase (38-126) U/L Troponin I <0.012 (0.000-0.034) ng/mL Total Protein (6.3-8.2) g/dL Albumin (3.5-5.0) g/dL Lipase (23-300) U/L Disposition Clinical Impression: Chest pain Disposition: ADMITTED IP TO THIS HOSP Referrals: Fleix Burgos MD [Primary Care Provider] - 1-2 days Time of Disposition: 20:11
[2022-07-11 18:26] LABS: Basophils % (A) 0 %; Eosinophils # (A) 0.2 k/uL (0-0.7); Eosinophils % (A) 3 %; HCT 38.3 % (39.0-53.0); HGB 12.8 gm/dL (13.0-17.5); Lymphocytes # (A) 2.1 k/uL (1.0-4.8); Lymphocytes % (A) 35 %; MCH 30.4 pg (25.0-35.0); MCHC 33.4 g/dL (31.0-37.0); MCV 91.1 fL (80.0-100.0); Mean Platelet Volume 8.7; Monocytes # (A) 0.5 k/uL (0-1.0); Monocytes % (A) 8 %; Neutrophils # (A) 3.2 k/uL (1.3-7.7); Neutrophils % (A) 52 %; Platelet Count 287 k/uL (150-450); RBC 4.21 m/uL (4.30-5.90); RDW 14.3 % (11.5-15.5); WBC 6.1 k/uL (3.8-10.6)
--- NOTE | 2022-07-11 18:32 | XR ---
EXAMINATION TYPE: XR chest 2V DATE OF EXAM: 07/11/2022 6:16 PM COMPARISON: Chest radiographs from 07/02/2022. TECHNIQUE: XR chest 2V Frontal and lateral views of the chest. CLINICAL INDICATION:Male, 61 years old with history of Chest Pain; FINDINGS: Lungs/Pleura: There is no evidence of pleural effusion, focal consolidation, or pneumothorax. Pulmonary vascularity: Unremarkable. Heart/mediastinum: Cardiomediastinal silhouette is unremarkable. Atherosclerotic calcifications are seen in the aorta. Single-lead cardiac conduction device overlying the left hemithorax with lead proj ecting over the right ventricle. Musculoskeletal: No acute osseous pathology. IMPRESSION: No acute cardiopulmonary disease/process.
[2022-07-11 18:35] LABS: ALT 44 U/L (4-49); AST 35 U/L (17-59); African American GFR (CKD) >90 (>60 ml/min/1.73 sqM); Albumin 4.3 g/dL (3.5-5.0); Alkaline Phosphatase 83 U/L (38-126); Anion Gap 11 mmol/L; Blood Urea Nitrogen 19 mg/dL (9-20); Calcium 9.4 mg/dL (8.4-10.2); Carbon Dioxide 21 mmol/L (22-30); Chloride 107 mmol/L (98-107); Glucose 104 mg/dL (74-99); Lipase 45 U/L (23-300); Magnesium 1.6 mg/dL (1.6-2.3); Non-African American GFR(CKD) 86 (>60 ml/min/1.73 sqM); Partial Thromboplastin Time 25.3 sec (22.0-30.0); Potassium 4.1 mmol/L (3.5-5.1); Prothrombin Time 10.7 sec (9.0-12.0); Sodium 139 mmol/L (137-145); Total Bilirubin 0.6 mg/dL (0.2-1.3); Total Protein 7.2 g/dL (6.3-8.2)
[2022-07-11] MEDS ORDERED: NITROGLYCERIN SL TABS 0.4 MG TAB SUBLINGUAL PRN (20:11)
[2022-07-11] MEDS ORDERED: ALBUTEROL NEBULIZED 2.5 MG/3 ML INHALATION PRN (21:16)
[2022-07-11] MEDS: MELATONIN 5 MG TABLET PO PRN (22:31)
[2022-07-11] MEDS: ALPRAZolam 0.25 MG TAB PO PRN (22:31)
[2022-07-11] MEDS: CARBIDOPA-LEVODOPA 10-100 MG 1 EACH TAB PO SCH (22:43)
[2022-07-12] MEDS: NITROGLYCERIN OINT 1 INCH/GM PACKET TOPICAL SCH ×5 (02:47→23:50)
[2022-07-12] MEDS: LEVOTHYROXINE 50 MCG TAB PO SCH (05:53)
[2022-07-12] MEDS ORDERED: NON FORMULARY DRUG (Fluticasone/Umeclidin/Vilanter [Trelegy Ellipta 200-62.5-25] 1 EACH Bl INHALATION SCH (08:00)
[2022-07-12] MEDS: CYANOCOBALAMIN 500 MCG TAB PO SCH (08:12)
[2022-07-12] MEDS: APIXABAN 5 MG TAB PO SCH ×2 (08:12→20:32)
[2022-07-12] MEDS: FUROSEMIDE 20 MG TAB PO SCH (08:12)
[2022-07-12] MEDS: ALPRAZolam 0.25 MG TAB PO PRN ×2 (08:12→20:32)
[2022-07-12] MEDS: ATORVASTATIN 80 MG TAB PO SCH (08:12)
[2022-07-12] MEDS: METOPROLOL SUCCINATE (ER) 25 MG TAB.ER.24H PO SCH (08:12)
[2022-07-12] MEDS: FAMOTIDINE 20 MG TAB PO SCH ×2 (08:12→20:32)
[2022-07-12] MEDS: CARBIDOPA-LEVODOPA 10-100 MG 1 EACH TAB PO SCH ×3 (08:13→22:39)
[2022-07-12] MEDS: ASPIRIN 325 MG TAB PO SCH (08:16)
[2022-07-12] MEDS: IPRATROPIUM 0.5 MG/2.5 ML NEBU INHALATION SCH ×4 (08:27→21:57)
[2022-07-12] MEDS: ALBUTEROL NEBULIZED 2.5 MG/3 ML INHALATION SCH ×4 (08:27→21:56)
[2022-07-12] MEDS: SYMBICORT 160-4.5 MCG INHALER INHALATION SCH ×2 (08:27→21:57)
[2022-07-12] MEDS ORDERED: RX INFO: IV CONTRAST WAS GIVEN 1 EACH MISC MISCELLANE PRN (08:43)
--- NOTE | 2022-07-12 08:57 | CONS ---
CONSULTATION CHIEF COMPLAINT: Dizziness. HISTORY OF PRESENT ILLNESS: Phil is a 61-year-old gentleman with history of nonischemic cardiomyopathy, status post AICD, atrial flutter status post recent ablation, hypothyroidism, chronic systolic heart failure, who in fact was discharged home on the 07 of July, comes back in complaining of dizziness, mild shortness of breath, and not feeling well and he still has some chest discomfort. At his last visit, he actually came in with chest pain and he was diagnosed with pericarditis and had been started on colchicine. He also had shortness of breath. At the time of my evaluation, he appears comfortable at rest and had 3 sets of troponins that are all within normal limits. His hemoglobin is 12.8, white cell count is normal, and the creatinine is normal. The exact etiology for his chest discomfort is unclear. The patient had an echocardiogram at last visit that did not reveal any pericardial effusion. Because of that, I am going to obtain a CT scan of the chest to rule out any other etiologies for his chest discomfort. He had a cardiac catheterization in 2019 that revealed normal coronary arteries and his cardiomyopathy was thought to be nonischemic in etiology. PAST MEDICAL HISTORY: Significant for dilated cardiomyopathy, status post AICD, atrial flutter status post ablation, chronic systolic heart failure, COPD and recent history of pericarditis. MEDICATIONS: Medications at home included, 1. Ventolin. 2. Toprol-XL. 3. Synthroid. 4. Lasix. 5. Pepcid. 6. Vibramycin. 7. Colchicine. 8. Sinemet. 9. Symbicort. 10.Lipitor. 11.Ventolin. ALLERGIES: There are no known drug allergies. FAMILY HISTORY: Negative for premature coronary artery disease. SOCIAL HISTORY: Negative for current smoking, EtOH abuse or drug abuse. REVIEW OF SYSTEMS: 14 out of 14 review of systems has been performed. Pertinent are as documented. PHYSICAL EXAMINATION: GENERAL: The patient is comfortable at rest. Afebrile. VITAL SIGNS: Stable. O2 saturation is 95% on room air. NECK: There is no jugular venous distention. Carotid upstroke is normal. There is no bruit. CHEST: Reveals good air entry bilaterally. HEART: Reveals first and second heart sounds. No gallop. No murmur. No rub. ABDOMEN: Soft, nontender. EXTREMITIES: Exam of extremities did not reveal any edema. Peripheral pulses are felt. LABORATORY DATA: Labs have been reviewed. Troponins are negative and rest of the lab workup appears benign and unremarkable. A chest x-ray did not reveal any acute cardiopulmonary disease. ASSESSMENT: 1. Atypical chest pain. 2. Dizziness. 3. Nonischemic cardiomyopathy status post AICD. 4. Chronic systolic heart failure. PLAN: I am going to repeat a 2D echo, obtain a CT scan of the chest, given the unexplained symptoms of chest discomfort and dizziness in the patient who underwent recent ablation. MMODL / IJN: [id number] /
[2022-07-12] MEDS: SACUBITRIL/VALSARTAN 24 MG-26 MG TABLET PO SCH ×2 (09:13→20:33)
[2022-07-12] MEDS: COLCHICINE 0.6 MG EACH PO SCH ×2 (09:14→20:33)
--- NOTE | 2022-07-12 10:52 | CT ---
EXAMINATION TYPE: CT chest w con CT DLP: 395.7 mGycm, Automated exposure control for dose reduction was used. DATE OF EXAM: 07/12/2022 10:28 AM COMPARISON: CTA chest 05/12/2022, CT chest 04/29/2022, chest radiograph 07/11/2022 CLINICAL INDICATION:Male, 61 years old with history of CP, r/o pericardial effusion, possible pericar diti; PHH, Chest pain, r/o pericardial effusion, possible pericarditi TECHNIQUE: Multiple axial images were obtained through the chest following the administration of 100 cc of Isovue 300. FINDINGS: LUNGS/ PLEURA: The lung parenchyma appears unremarkable. AIRWAY: Patent and unremarkable.. HEART: Size within normal limits. No pericardial effusion. Mild coronary arterial calcifications. No significant pericardial thickening. MEDIASTINUM: No gross evidence of adenopathy. VASCULATURE: No aortic aneurysm. Left chest wall AICD with tip terminating in the right ventricle. MUSCULOSKELETAL: No acute osseous abnormalities. Multilevel degenerative changes of the thoracic spin e. SOFT TISSUES/LYMPH NODES: Unremarkable. LOWER NECK: No significant findings. UPPER ABDOMEN: Circumferential wall thickening of the distal esophagus again demonstrated. Punctate h yperdense focus within the right hepatic dome likely representing a vascular shunt or flash filling h emangioma. Post cholecystectomy changes. IMPRESSION: 1. No acute thoracic process. No evidence of pericardial effusion or significant pericardial thickeni ng. 2. Similar circumferential wall thickening of the distal esophagus. Correlate clinically for symptoms of esophagitis/reflux and dysphasia.
[2022-07-12 11:16] LABS: Chol/HDL Ratio 2.31 Ratio; LDL Cholesterol,Calculated 37.2 mg/dL (0.0-131.0); VLDL Calculation 16.46 mg/dL (5.00-40.00)
--- NOTE | 2022-07-12 12:20 | CA ---
Transthoracic Echo Report Name: Phil Yap Age: 61 Gender: M : 1960 Exam Date: 07/12/2022 09:47 Exam Location: [facility] Ht (in): 66 Wt (lb): 172 Ordering Physician: Bruce Waggoner MD ([id number]) Attending/Referring Phys: Edilson LEARY Roller Varnisher Marcel Menezes RDCS Procedure CPT: Indications: dizziness Cardiac Hx: HTN;CAD; Pacemaker rhythm, Technical Quality: Fair Contrast 1: Total Dose (mL): Contrast 2: Total Dose (mL): MEASUREMENTS (Male / Female) Normal Values 2D ECHO LV Diastolic Diameter PLAX 4.6 cm 4.2 - 5.9 / 3.9 - 5.3 cm LV Systolic Diameter PLAX 3.9 cm LV Fractional Shortening PLAX 15.0 % IVS Diastolic Thickness 1.2 cm 0.6 - 1.0 / 0.6 - 0.9 cm IVS Systolic Thickness 1.6 cm LVPW Diastolic Thickness 1.2 cm 0.6 - 1.0 / 0.6 - 0.9 cm LVPW Systolic Thickness 1.8 cm LV Relative Wall Thickness 0.5 RV Internal Dim ED PLAX 3.6 cm LVOT Diameter 2.3 cm LA Systolic Diameter LX 3.1 cm 3.0 - 4.0 / 2.7 - 3.8 cm LV Diastolic Volume MOD BP 99.9 cm??? 67 - 155 / 56 - 104 cm??? LV Systolic Volume MOD BP 56.6 cm??? 22 - 58 / 19 - 49 cm??? LV Ejection Fraction MOD BP 43.4 % >= 55 % LV Stroke Volume MOD BP 43.3 cm??? LV Diastolic Volume MOD 4C 101.0 cm??? LV Systolic Volume MOD 4C 39.2 cm??? LV Ejection Fraction MOD 4C 61.2 % LV Stroke Volume MOD 4C 61.8 cm??? LV Diastolic Length 4C 7.9 cm LV Systolic Length 4C 6.0 cm LV Diastolic Volume MOD 2C 95.6 cm??? LV Systolic Volume MOD 2C 75.1 cm??? LV Ejection Fraction MOD 2C 21.5 % LV Stroke Volume MOD 2C 20.5 cm??? LV Diastolic Length 2C 7.6 cm LV Systolic Length 2C 6.6 cm Ascending Aorta Diameter 3.0 cm DOPPLER MV E' Velocity 5.4 cm/s FINDINGS Left Ventricle Left ventricular ejection fraction is estimated at 45-50 %. Mild concentric left ventricular hypertrophy. Grade 1 diastolic dysfunction. Reduced global left ventricular systolic function. Right Ventricle Mild right ventricular dilatation. Calcified pacemaker wire in the right ventricular cavity. Right Atrium Mild right atrial dilatation. Calcified normal right atrial size. pacemaker wire in the right atrial cavity. Left Atrium Normal left atrial size. Mitral Valve Mitral valve thickened. Mild mitral annular calcification. Aortic Valve Trileaflet aortic valve. Tricuspid Valve Structurally normal tricuspid valve. Pulmonic Valve Pulmonic valve not well visualized. Pericardium Normal pericardium. Echo free space anterior to the right ventricle likely represents a fat pad. Aorta Normal size aortic root and proximal ascending aorta. CONCLUSIONS Left ventricle is of normal size ejection fraction 45-50% mild concentric LVH mild global decrease in contractility. Mild mitral annular calcification some enlargement of right ventricle and right atrium mild mitral and tricuspid regurgitation no pericardial effusion Previewed by: Dr. Tigre Thomas MD (Electronically Signed) Final Date: 12 July 2022 12:20
[2022-07-12 20:16] LABS: Glucose,Whole Blood 97 mg/dL (70-110)
[2022-07-12] MEDS: MELATONIN 5 MG TABLET PO PRN (20:32)
--- NOTE | 2022-07-13 02:03 | HP ---
HISTORY AND PHYSICAL HISTORY OF PRESENT ILLNESS: He came in with dizziness, chest pain, dizziness when he ambulates and standing up. He was admitted to hospital. Cardiology saw him. He had chest pain in epigastric region, shortness of breath, but mainly dizziness when he is ambulating. Denies any fever or cough. He recently had a cardiac ablation for atrial fibrillation. He has hypertension, hypercholesterolemia, end-stage COPD. He has an AICD defibrillator. HOME MEDICINES: 1. Lipitor 80 daily. 2. Lasix 20 daily. 3. Nitroglycerin sublingual p.r.n. 4. Entresto 24/26 b.i.d. 5. Trelegy 200 one daily. 6. Ventolin HFA 2 puffs q.4 hours p.r.n. 7. Xanax 0.25 b.i.d. p.r.n. 8. Symbicort 160/4.5 two puffs b.i.d. 9. Sinemet 1 tab t.i.d. 10.Melatonin 5 at night. 11.Ipratropium bromide b.i.d. ALLERGIES: Negative. SURGERIES: AICD, appendectomy, cardiac ablation, cholecystectomy, heart catheterization, and pacemaker. FAMILY HISTORY: Mother with cancer in the jaw. Father COPD. PHYSICAL EXAMINATION: VITAL SIGNS: Stable, afebrile. Temperature 97.7, pulse 71 to 93, respiratory rate 14 to 20, blood pressure 101 to 128 over 70s, O2 96 to 97. GENERAL: sitting in bed, range of motion fair. HEENT: Pupils equal round and reactive. LUNGS: Scattered wheeze. CARDIOVASCULAR: S1, S2. HEMATOLOGY: Negative for Homans. PSYCH: Fair mood and affect. LABORATORY DATA: Labs were reviewed. ASSESSMENT: Atypical chest pain, dizziness, rule out orthostatic hypotension, COPD, possibly dehydration, status post cardiac ablation and AICD. Prognosis guarded. Please see orders. MMODL / IJN: [id number] /
[2022-07-13] MEDS: LEVOTHYROXINE 50 MCG TAB PO SCH (06:14)
[2022-07-13] MEDS: MIDODRINE 5 MG TAB PO SCH ×3 (06:14→16:40)
[2022-07-13] MEDS: NITROGLYCERIN OINT 1 INCH/GM PACKET TOPICAL SCH (06:14)
[2022-07-13] MEDS: ALPRAZolam 0.25 MG TAB PO PRN ×2 (08:51→20:06)
[2022-07-13] MEDS: ASPIRIN 325 MG TAB PO SCH (08:51)
[2022-07-13] MEDS: APIXABAN 5 MG TAB PO SCH ×2 (08:51→20:06)
[2022-07-13] MEDS: CYANOCOBALAMIN 500 MCG TAB PO SCH (08:52)
[2022-07-13] MEDS: CARBIDOPA-LEVODOPA 10-100 MG 1 EACH TAB PO SCH ×3 (08:52→21:15)
[2022-07-13] MEDS: SACUBITRIL/VALSARTAN 24 MG-26 MG TABLET PO SCH ×2 (08:52→20:07)
[2022-07-13] MEDS: METOPROLOL SUCCINATE (ER) 25 MG TAB.ER.24H PO SCH (08:52)
[2022-07-13] MEDS: FAMOTIDINE 20 MG TAB PO SCH ×2 (08:52→20:06)
[2022-07-13] MEDS: ATORVASTATIN 80 MG TAB PO SCH (08:52)
[2022-07-13] MEDS: COLCHICINE 0.6 MG EACH PO SCH ×2 (08:52→20:07)
[2022-07-13] MEDS: FUROSEMIDE 20 MG TAB PO SCH (08:52)
[2022-07-13] MEDS: IPRATROPIUM 0.5 MG/2.5 ML NEBU INHALATION SCH ×4 (09:13→22:01)
[2022-07-13] MEDS: ALBUTEROL NEBULIZED 2.5 MG/3 ML INHALATION SCH ×4 (09:14→22:00)
[2022-07-13] MEDS: SYMBICORT 160-4.5 MCG INHALER INHALATION SCH ×2 (09:14→22:01)
[2022-07-13] MEDS ORDERED: bisacodyL 5 MG TABLET.DR PO PRN (11:42)
--- NOTE | 2022-07-13 12:45 | P.PN ---
Subjective Progress Note Date: 07/13/22 HISTORY OF PRESENT ILLNESS: Patient examined this morning at the bedside. Patient states he has continued to have some chest discomfort overnight and this morning. Patient states that sometimes the pain is worse with movement and sometimes it is not. He states the pain is not worse with deep inspiration. Echocardiogram performed revealed ejection fraction of 45-50% with no evidence of pericardial effusion. CT of the chest was performed which was negative for an acute thoracic process. No evidence of pericardial effusion or significant pericardial thickening. PHYSICAL EXAM: VITAL SIGNS: Reviewed. GENERAL: Well-developed in no acute distress. NECK: Supple. No JVD or thyromegaly LUNGS: Respirations even and unlabored. Lungs essentially clear to auscultation bilaterally. HEART: Regular rate and rhythm. S1 and S2 heard. EXTREMITIES: Normal range of motion. No clubbing or cyanosis. Peripheral pulses intact. No lower extremity edema ASSESSMENT: Atypical chest pain Dizziness Nonischemic cardio myopathy History of AICD implantation Chronic heart failure with reduced ejection fraction, currently euvolemic History of atrial flutter status post recent ablation Recent diagnosis of pericarditis Normal coronary arteries, per cardiac catheterization in 2019 PLAN: Continue current cardiac medications Per Dr. Waggoner, patient may be discharged home today and follow up on an outpatient basis Nurse practitioner note has been reviewed by physician. Signing provider agrees with the documented findings, assessment, and plan of care. Objective - Vital Signs Vital signs: Vital Signs Temp 97.7 F 07/13/22 08:45 Pulse 73 07/13/22 12:00 Resp 18 07/13/22 12:00 BP 118/65 07/13/22 12:00 Pulse Ox 99 07/13/22 12:00 FiO2 Intake & Output 07/12/22 07/13/22 07/13/22 18:59 06:59 18:59 Intake Total 180 Output Total 300 Balance -300 180 Weight 79.379 kg Intake: Oral 180 Output: Urine 300 Other: Voiding Method Toilet Toilet Toilet # Voids 4 # Bowel Movements 2 1 - Labs CBC & Chem 7: 07/11/22 18:05 07/11/22 18:05
[2022-07-13] MEDS ORDERED: LORazepam 2 MG/ML INJ IV PRN (13:26)
[2022-07-13] MEDS: MELATONIN 5 MG TABLET PO PRN (20:06)
[2022-07-14] MEDS: LEVOTHYROXINE 50 MCG TAB PO SCH (06:09)
[2022-07-14] MEDS: MIDODRINE 5 MG TAB PO SCH ×2 (06:09→12:42)
[2022-07-14] MEDS: IPRATROPIUM 0.5 MG/2.5 ML NEBU INHALATION SCH ×3 (09:10→16:16)
[2022-07-14] MEDS: SYMBICORT 160-4.5 MCG INHALER INHALATION SCH (09:13)
[2022-07-14] MEDS: ALBUTEROL NEBULIZED 2.5 MG/3 ML INHALATION SCH ×3 (09:13→16:16)
[2022-07-14] MEDS: METOPROLOL SUCCINATE (ER) 25 MG TAB.ER.24H PO SCH (09:42)
[2022-07-14] MEDS: FUROSEMIDE 20 MG TAB PO SCH (09:42)
[2022-07-14] MEDS: CYANOCOBALAMIN 500 MCG TAB PO SCH (09:42)
[2022-07-14] MEDS: APIXABAN 5 MG TAB PO SCH (09:42)
[2022-07-14] MEDS: COLCHICINE 0.6 MG EACH PO SCH (09:43)
[2022-07-14] MEDS: ATORVASTATIN 80 MG TAB PO SCH (09:43)
[2022-07-14] MEDS: SACUBITRIL/VALSARTAN 24 MG-26 MG TABLET PO SCH (09:43)
[2022-07-14] MEDS: CARBIDOPA-LEVODOPA 10-100 MG 1 EACH TAB PO SCH (09:43)
[2022-07-14] MEDS: FAMOTIDINE 20 MG TAB PO SCH (09:43)
[2022-07-14] MEDS: ALPRAZolam 0.25 MG TAB PO PRN (09:47)
[2022-07-14 09:58] VITALS: RESP 18
--- NOTE | 2022-07-14 10:52 | P.PN ---
Subjective Progress Note Date: 07/14/22 HISTORY OF PRESENT ILLNESS: Patient examined this morning at the bedside. Patient states he has continued to have some chest discomfort overnight and this morning. Patient states that sometimes the pain is worse with movement and sometimes it is not. He states the pain is not worse with deep inspiration. Echocardiogram performed revealed ejection fraction of 45-50% with no evidence of pericardial effusion. CT of the chest was performed which was negative for an acute thoracic process. No evidence of pericardial effusion or significant pericardial thickening. 07/14/2022 Patient examined this morning at the bedside. Patient denies chest pain or pressure. He denies any shortness of breath. Vital signs are stable. Patient is hoping to be discharged home today. PHYSICAL EXAM: VITAL SIGNS: Reviewed. GENERAL: Well-developed in no acute distress. NECK: Supple. No JVD or thyromegaly LUNGS: Respirations even and unlabored. Lungs essentially clear to auscultation bilaterally. HEART: Regular rate and rhythm. S1 and S2 heard. EXTREMITIES: Normal range of motion. No clubbing or cyanosis. Peripheral pulses intact. No lower extremity edema ASSESSMENT: Atypical chest pain Dizziness Nonischemic cardio myopathy History of AICD implantation Chronic heart failure with reduced ejection fraction, currently euvolemic History of atrial flutter status post recent ablation Recent diagnosis of pericarditis Normal coronary arteries, per cardiac catheterization in 2019 PLAN: Continue current cardiac medications Per Dr. Waggoner, patient may be discharged home today and follow up on an outpatient basis Nurse practitioner note has been reviewed by physician. Signing provider agrees with the documented findings, assessment, and plan of care. Objective - Vital Signs Vital signs: Vital Signs Temp 97.5 F L 07/14/22 09:40 Pulse 74 07/14/22 09:40 Resp 18 07/14/22 09:40 BP 119/74 07/14/22 09:40 Pulse Ox 98 07/14/22 09:40 FiO2 Intake & Output 07/13/22 07/14/22 07/14/22 18:59 06:59 18:59 Intake Total 478 780 240 Balance 478 780 240 Intake: Oral 478 780 240 Other: Voiding Method Toilet Toilet Toilet # Bowel Movements 1 - Labs CBC & Chem 7: 07/11/22 18:05 07/11/22 18:05
[2022-07-14 12:45] VITALS: BP 106/67; TEMP 98.3
[2022-07-14 12:56] VITALS: PULSE 73
--- NOTE | 2022-07-14 23:07 | PN ---
PROGRESS NOTE DATE OF SERVICE: 07/13/2022 SUBJECTIVE: This 61-year-old white male comes in with atypical chest pain. Cardiology saw him and cleared him for discharge. OBJECTIVE: CARDIOVASCULAR: S1, S2. LUNGS: Clear. GI: Soft. Hematology: Negative for Homans. ASSESSMENT: Atypical chest pain, myocardial infarction ruled out. Cleared by Cardiology. Possible discharge home in the morning. Risk factor modification. MMODL / IJN: [id number] /
== END 2022-07-14 16:35 | disposition home or self-care (01) | DRG 198 ==
LOC: EC 17:12 → 3SCARD 20:11
PROVIDERS: ADMIT Family Medicine; ATTEND Family Medicine
DX: R07.89 Other chest pain (principal); I25.10 Atherosclerotic heart disease of native coronary artery without angina pectoris; I42.0 Dilated cardiomyopathy; I48.92 Unspecified atrial flutter; G20 Parkinson's disease; I11.0 Hypertensive heart disease with heart failure; I50.22 Chronic systolic (congestive) heart failure; J44.9 Chronic obstructive pulmonary disease, unspecified; E03.9 Hypothyroidism, unspecified; I48.91 Unspecified atrial fibrillation; E86.0 Dehydration; I45.10 Unspecified right bundle-branch block; E78.00 Pure hypercholesterolemia, unspecified; G47.30 Sleep apnea, unspecified; Z28.310 Unvaccinated for COVID-19; I25.2 Old myocardial infarction; Z87.891 Personal history of nicotine dependence; Z95.810 Presence of automatic (implantable) cardiac defibrillator; Z86.718 Personal history of other venous thrombosis and embolism; Z79.899 Other long term (current) drug therapy; Z79.890 Hormone replacement therapy; Z79.01 Long term (current) use of anticoagulants; Z79.51 Long term (current) use of inhaled steroids; Z86.79 Personal history of other diseases of the circulatory system
CPT/HCPCS: 36415; 71046; 71260; 80053; 80061; 83690; 83735; 84484; 85025; 85610; 85730; 93005; 93308; 94640; 94760; 99285

== ENCOUNTER 2022-07-18 10:14 | Inpatient (IN) | payer OTHER ==
--- NOTE | 2022-07-18 10:33 | ED ---
Chest Pain HPI - General Chief Complaint: Chest Pain Stated Complaint: Chest pain SOB Time Seen by Provider: 07/18/22 10:30 Source: patient, RN notes reviewed Mode of arrival: ambulatory Limitations: no limitations - History of Present Illness Initial Comments: This is a 61 year old male who presents to the emergency department for chest pain. States that this started last night and woke him up from his sleep. He is providing very conflicting information on initial discussion. He told his nurse that he would describe this as a heaviness in his chest with associated dizziness and shortness of breath. When I went to evaluate the patient, he described this as a sharp burning sensation in the epigastric region. Patient was just admitted from 07/11-07/14 for chest pain. ACS was ruled out and he was discharged home. Workup at that time included a cardiology consultation, an echocardiogram, and chest CT. the chest CT did note probable esophagitis. His nurse receptionist is Dr. Thomas. Denies any headaches, but states "I have nausea in my head". Denies any fevers, chills, sore throat, cough, palpitations, vomiting, diarrhea, back pain, or headaches. MD Complaint: chest pain Onset/Timin -: days(s) Onset: awoke with symptoms - Related Data Home Medications Medication Instructions Recorded Confirmed Albuterol Sulfate [Ventolin HFA] 2 puff INHALATION RT-Q6H PRN 04/28/22 07/18/22 Atorvastatin [Lipitor] 80 mg PO DAILY 04/28/22 07/18/22 Furosemide [Lasix] 20 mg PO DAILY 04/28/22 07/18/22 Nitroglycerin Sl Tabs [Nitrostat] 0.4 mg SL Q5M PRN 04/28/22 07/18/22 Sacubitril/Valsartan [Entresto 24 1 tab PO BID 05/25/22 07/18/22 mg-26 mg Tablet] Fluticasone/Umeclidin/Vilanter 1 puff INHALATION RT-DAILY 06/28/22 07/18/22 [Trelegy Ellipta 200-62.5-25] ALPRAZolam [Xanax] 0.25 mg PO BID PRN 07/02/22 07/18/22 Budesonide/Formoterol Fumarate 2 puff INHALATION RT-BID 07/02/22 07/18/22 [Symbicort 160-4.5 Mcg Inhaler] Carbidopa-Levodopa 10-100 mg 1 tab PO TID 07/02/22 07/18/22 [Sinemet 10-100 mg] Melatonin 5 mg PO HS PRN 07/02/22 07/18/22 Ipratropium [place] 0.2 mg INHALATION RT-BID 07/11/22 07/18/22 Previous Rx's Medication Instructions Recorded Apixaban [Eliquis] 5 mg PO BID #30 tab 05/14/22 Cyanocobalamin [Vitamin B-12] 1,000 mcg PO DAILY tab 06/09/22 Famotidine [Pepcid] 20 mg PO BID 90 Days #180 tab 06/09/22 Levothyroxine Sodium [Synthroid] 50 mcg PO DAILY@0630 90 Days #90 06/09/22 tab Metoprolol Succinate (ER) [Toprol 25 mg PO DAILY 90 Days #90 tab 06/09/22 XL] Albuterol Nebulized [Ventolin 2.5 mg INHALATION RT-QID 30 Days 07/07/22 Nebulized] #120 ml Colchicine [Colcrys] 0.6 mg PO BID 7 Days #14 each 07/07/22 Doxycycline [Vibramycin] 100 mg PO BID 7 Days #14 cap 07/07/22 Midodrine [ProAmatine] 5 mg PO AC-TID 30 Days #90 tab 07/14/22 Allergies Allergy/AdvReac Type Severity Reaction Status Date / Time No Known Allergies Allergy Verified 07/18/22 11:27 Review of Systems ROS Statement: Those systems with pertinent positive or pertinent negative responses have been documented in the HPI. ROS Other: All systems not noted in ROS Statement are negative. Past Medical History Past Medical History: Atrial Fibrillation, Heart Failure, COPD, Hyperlipidemia, Hypertension, Myocardial Infarction ([place]), Osteoarthritis (OA), Sleep Apnea/CPAP/BIPAP, Syncope Additional Past Medical History / Comment(s): see Dr Hester's H&P,Parkinson's,no mobility devices,uses O2 @ 2 L NC at hs and uses prn during the day(insurance is not covering home oxygen-pt purchased an oxygen machine that makes it's own oxygen off of [employer]),will be starting cpap in 3 weeks, DVT L subclavian/surgically removed, nonischemic cardiomyopathy/AICD/pacer in place, past ETOH - no use since 04/2020 Last Myocardial Infarction Date:: 02/25/20 History of Any Multi-Drug Resistant Organisms: None Reported Past Surgical History: AICD, Appendectomy, Cardiac Ablation, Cholecystectomy, Heart Catheterization, Pacemaker Additional Past Surgical History / Comment(s): 04/27/21 lap cholecystectomy, L upper extremity venogram/thrombolysis/thrombectomy Past Anesthesia/Blood Transfusion Reactions: No Reported Reaction Type of Cardiac Device: Permanent Pacemaker, AICD Device Placement Date:: 05/01/20 Past Psychological History: Anxiety Smoking Status: Former smoker Past Alcohol Use History: None Reported Past Drug Use History: None Reported - Past Family History Mother Family Medical History: Cancer Additional Family Medical History / Comment(s): Cancer in jaw. Father Family Medical History: COPD General Exam Limitations: no limitations General appearance: alert, in no apparent distress Head exam: Present: atraumatic, normocephalic, normal inspection Respiratory exam: Present: normal lung sounds bilaterally. Absent: respiratory distress, wheezes, rales, rhonchi, stridor, chest wall tenderness Cardiovascular Exam: Present: regular rate, normal rhythm, normal heart sounds. Absent: systolic murmur, diastolic murmur, rubs, gallop, clicks GI/Abdominal exam: Present: soft, normal bowel sounds. Absent: distended, tenderness, guarding, rebound, rigid Neurological exam: Present: alert, oriented X3, CN II-XII intact Psychiatric exam: Present: normal affect, normal mood Skin exam: Present: warm, dry, intact, normal color. Absent: rash Course Vital Signs 07/18/22 07/18/22 07/18/22 10:23 10:26 11:47 Temperature 98 F 98.9 F Pulse Rate 85 78 77 Respiratory 18 20 18 Rate Blood Pressure 118/73 100/72 102/68 O2 Sat by Pulse 96 97 100 Oximetry 07/18/22 07/18/22 13:55 16:10 Temperature Pulse Rate 68 68 Respiratory 16 18 Rate Blood Pressure 102/68 114/81 O2 Sat by Pulse 100 100 Oximetry Chest Pain MDM - MDM This is a 61-year-old male who presents emergency department for chest pain. Was pt. sent in by a medical professional or institution? @ -No Did you speak to anyone other than the patient for history? @ -No Did you review nursing and triage notes? @ -Yes, and I agree, it is accurate with regards to the patient's symptoms. Were old charts reviewed? @ -Admission records from 07/11-07/14. Differential Diagnosis? @ -Differential Chest Pain: Stable Angina, Unstable Angina, STEMI, NSTEMI Aortic Dissection, Pneumothorax, Musculoskeletal, Esophageal Spasm GERD, Cholecystitis, Pancreatitis, Zoster, this is not meant to be an all-inclusive list. EKG interpreted by me (3pts min.)? @ -Sinus rhythm. Right bundle branch block. Ventricular rate 64 beats per minute, SD interval 180 ms, QRS duration 162 ms, QTC 462 ms. X-rays interpreted by me (1pt min.)? @ -Chest x-ray obtained, my interpretation identifies no localized consolidations or infiltrates. What testing was considered but not performed? (CT, X-rays, U/S, labs)? Why? @ -None What meds were considered but not given? Why? @ -None Did you discuss the management of the patient with other professionals? @ -Yes, Dr. Burgos, who accepts the patient for admission. Did you reconcile home meds? @ -No Was smoking cessation discussed for >3mins.? @ -No Was critical care preformed (if so, how long)? @ -No Were there social determinants of health that impacted care today? How? (Homelessness, low income, unemployed, alcoholism, drug addiction, transportation, low edu. Level, literacy, decrease access to med. care, alf, rehab)? @ -No Was there de-escalation of care discussed even if they declined? (Discuss DNR or withdrawal of care, Hospice)? @ -No What co-morbidities impacted this encounter? (DM, HTN, Smoking, COPD, CAD, Cancer, CVA, Hep., AIDS, mental health diagnosis, sleep apnea, morbid obesity)? @ -A-fib, CHF, COPD, HLD, HTN Was patient admitted / discharged? @ -Admitted. Lab work obtained and found to be nonactionable. Chest x-ray reveals no acute findings. Given that the patient was complaining of epigastric symptoms, he was given a GI cocktail and Pepcid. He had no improvement in symptoms following medication administration. He was then given Carafate and morphine with a fair amount of improvement. Nitroglycerin was avoided due to the patient's soft pressure. Case discussed with Dr. Burgos, who accepts patient for admission. Serial troponins ordered. Undiagnosed new problem with uncertain prognosis? @ -None Drug Therapy requiring intensive monitoring for toxicity (Heparin, Nitro, Insulin, Cardizem)? @ -None Were any procedures done? @ -None Diagnosis/symptom? @ -Chest pain Acute, or Chronic, or Acute on Chronic? @ -Acute Uncomplicated (without systemic symptoms) or Complicated (systemic symptoms)? @ -Complicated Side effects of treatment? @ -None Exacerbation, Progression, or Severe Exacerbation] @ -Not applicable Poses a threat to life or bodily function? @ -This will depend on the cause of the chest pain. This case was discussed in detail with the attending ED physician, Dr. Odonnell. Presentation, findings, and treatment plan discussed in detail as well. Disposition Clinical Impression: Chest pain Disposition: ADMITTED IP TO THIS HOSP
[2022-07-18] MEDS ORDERED: MAG HYDROX/AL HYDROX/SIMETH 30 ML, HYOSCYAMINE ELIXIR 10 ML PO STA ×2 (10:45)
[2022-07-18] MEDS ORDERED: FAMOTIDINE 20 MG/2 ML VIAL IV STA (10:45)
[2022-07-18 10:50] LABS: Basophils % (A) 0 %; Eosinophils # (A) 0.2 k/uL (0-0.7); Eosinophils % (A) 3 %; HCT 38.1 % (39.0-53.0); HGB 12.6 gm/dL (13.0-17.5); Lymphocytes % (A) 29 %; MCH 29.8 pg (25.0-35.0); MCHC 32.9 g/dL (31.0-37.0); MCV 90.5 fL (80.0-100.0); Mean Platelet Volume 8.6; Monocytes # (A) 0.4 k/uL (0-1.0); Monocytes % (A) 6 %; Neutrophils # (A) 4.2 k/uL (1.3-7.7); Neutrophils % (A) 60 %; Platelet Count 243 k/uL (150-450); RBC 4.21 m/uL (4.30-5.90); RDW 14.1 % (11.5-15.5)
--- NOTE | 2022-07-18 11:04 | XR ---
EXAMINATION TYPE: XR chest 2V DATE OF EXAM: 07/18/2022 COMPARISON: 07/11/2022 HISTORY: Shortness of breath TECHNIQUE: Frontal and lateral views of the chest are obtained. FINDINGS: Scattered senescent parenchymal changes noted. Hyperinflation compatible with COPD. No evidence for infiltrate. No evidence for atelectasis. Heart size is stable. Mediastinal structures are stable and grossly unremarkable. No evidence for hilar prominence. Degenerative changes dorsal spine. IMPRESSION: 1. No evidence for acute pulmonary disease.
[2022-07-18 11:05] LABS: INR 1.1 (<1.2); Prothrombin Time 11.4 sec (9.0-12.0)
[2022-07-18 11:08] LABS: ALT 18 U/L (4-49); AST 26 U/L (17-59); African American GFR (CKD) >90 (>60 ml/min/1.73 sqM); Albumin 4.3 g/dL (3.5-5.0); Alkaline Phosphatase 78 U/L (38-126); Anion Gap 11 mmol/L; Blood Urea Nitrogen 18 mg/dL (9-20); Calcium 9.5 mg/dL (8.4-10.2); Carbon Dioxide 21 mmol/L (22-30); Chloride 110 mmol/L (98-107); Glucose 103 mg/dL (74-99); Magnesium 1.6 mg/dL (1.6-2.3); Non-African American GFR(CKD) >90 (>60 ml/min/1.73 sqM); Potassium 4.2 mmol/L (3.5-5.1); Sodium 142 mmol/L (137-145); Total Bilirubin 0.7 mg/dL (0.2-1.3); Total Protein 7.2 g/dL (6.3-8.2)
[2022-07-18] MEDS ORDERED: SUCRALFATE 1 GM TAB PO STA (11:40)
[2022-07-18] MEDS ORDERED: MORPHINE SULFATE 2 MG/ML SYRINGE IVP STA ×2 (11:40→15:44)
[2022-07-18 12:22] LABS: Amylase 45 U/L (30-110); Lipase 32 U/L (23-300)
[2022-07-18] MEDS ORDERED: HYDROcodone/APAP 5-325MG 1 EACH TAB PO PRN (16:03)
[2022-07-18] MEDS ORDERED: ACETAMINOPHEN TAB 325 MG TAB PO PRN (16:03)
[2022-07-18] MEDS ORDERED: ONDANSETRON 4 MG/2 ML VIAL IVP PRN (16:03)
[2022-07-18] MEDS ORDERED: NALOXONE 0.4 MG/ML 1 ML VIAL IV PRN (16:03)
[2022-07-18] MEDS ORDERED: NITROGLYCERIN SL TABS 0.4 MG TAB SUBLINGUAL PRN (17:27)
[2022-07-18] MEDS ORDERED: MELATONIN 5 MG TABLET PO PRN (17:27)
[2022-07-18] MEDS ORDERED: ALBUTEROL HFA INHALER INHALATION PRN (17:27)
[2022-07-18] MEDS: MIDODRINE 5 MG TAB PO SCH (17:56)
[2022-07-18] MEDS: CARBIDOPA-LEVODOPA 10-100 MG 1 EACH TAB PO SCH (20:10)
[2022-07-18] MEDS: COLCHICINE 0.6 MG EACH PO SCH (20:10)
[2022-07-18] MEDS: FAMOTIDINE 20 MG TAB PO SCH (20:10)
[2022-07-18] MEDS: SACUBITRIL/VALSARTAN 24 MG-26 MG TABLET PO SCH (20:10)
[2022-07-18] MEDS: APIXABAN 5 MG TAB PO SCH (20:10)
[2022-07-18] MEDS: MORPHINE SULFATE 2 MG/ML SYRINGE IV PRN (20:13)
[2022-07-18] MEDS: SYMBICORT 160-4.5 MCG INHALER INHALATION SCH (20:59)
[2022-07-18] MEDS: ALBUTEROL NEBULIZED 2.5 MG/3 ML INHALATION SCH (20:59)
[2022-07-18] MEDS: IPRATROPIUM 0.5 MG/2.5 ML NEBU INHALATION SCH (20:59)
--- NOTE | 2022-07-18 23:18 | HP ---
HISTORY AND PHYSICAL HISTORY OF PRESENT ILLNESS: This 61-year-old white male came in with atypical chest pain, woke him from his sleep, heaviness in the chest, dizziness, shortness of breath, burning sensation in epigastric region, came in to the hospital, admitted with cardiology consult. He has probable esophagitis and CAT scan which probably causes chest pain, sees Lamont Thomas for cardiology, had recent cardiac ablation. MEDICATIONS: 1. Lipitor 80 daily. 2. Ventolin HFA. 3. Crestor 24/26 b.i.d. 4. Lasix 20 daily. 5. Nitroglycerin sublingual. 6. Trelegy inhaler 200 mg daily. 7. Xanax 0.25 b.i.d. 8. Symbicort 160/4.5 two puffs b.i.d. 9. Sinemet 10/100 t.i.d. 10.Melatonin 5 daily. 11.Ipratropium bromide. REVIEW OF SYSTEMS: A 14-point review of systems otherwise negative. PAST MEDICAL HISTORY: Cardiac ablation, sleep apnea, osteoarthritis, myocardial fraction, COPD, atrial fibrillation, hypertension, AICD, appendectomy, cholecystectomy, heart catheterization, and pacemaker. PHYSICAL EXAMINATION: VITAL SIGNS: Reviewed. Blood pressure 102 to 118 over 60s to 70s, temperature 98.9, pulse 70s to 80s, respiratory rate 18 to 20, O2 96 to 100. HEENT: Normocephalic, atraumatic. Pupils equal, round, reactive. LUNGS: Decreased breath sounds x4. CARDIAC: S1, S2. NEUROLOGIC: Cranial nerves intact. PSYCH: Fair mood and affect. SKIN: Warm, dry. ASSESSMENT: Atypical chest pain, rule out gastric contraction versus esophageal spasm versus non- STEMI. CT scan of the chest is ordered, COPD, continue breathing treatments, oxygen at night. Prognosis guarded. Wait for cardiology consult, to clear him for discharge in the morning. Start PPIs. Prognosis guarded. MMODL / IJN: [id number] /
[2022-07-19] MEDS: MORPHINE SULFATE 2 MG/ML SYRINGE IV PRN ×2 (01:51→21:10)
[2022-07-19] MEDS: LEVOTHYROXINE 50 MCG TAB PO SCH (06:23)
[2022-07-19] MEDS: MIDODRINE 5 MG TAB PO SCH ×3 (06:23→16:49)
[2022-07-19] MEDS: IPRATROPIUM 0.5 MG/2.5 ML NEBU INHALATION SCH ×4 (07:57→20:49)
[2022-07-19] MEDS: ALBUTEROL NEBULIZED 2.5 MG/3 ML INHALATION SCH ×4 (07:57→20:47)
[2022-07-19] MEDS: SYMBICORT 160-4.5 MCG INHALER INHALATION SCH ×2 (07:57→20:47)
[2022-07-19] MEDS ORDERED: NON FORMULARY DRUG (Fluticasone/Umeclidin/Vilanter [Trelegy Ellipta 200-62.5-25] 1 EACH Bl INHALATION SCH (08:00)
[2022-07-19] MEDS: FAMOTIDINE 20 MG TAB PO SCH ×2 (09:07→21:10)
[2022-07-19] MEDS: METOPROLOL SUCCINATE (ER) 25 MG TAB.ER.24H PO SCH (09:07)
[2022-07-19] MEDS: CYANOCOBALAMIN 500 MCG TAB PO SCH (09:07)
[2022-07-19] MEDS: ALPRAZolam 0.25 MG TAB PO PRN ×2 (09:07→21:09)
[2022-07-19] MEDS: ATORVASTATIN 80 MG TAB PO SCH (09:07)
[2022-07-19] MEDS: FUROSEMIDE 20 MG TAB PO SCH (09:07)
[2022-07-19] MEDS: COLCHICINE 0.6 MG EACH PO SCH ×2 (09:08→21:11)
[2022-07-19] MEDS: SACUBITRIL/VALSARTAN 24 MG-26 MG TABLET PO SCH ×2 (09:08→21:11)
[2022-07-19] MEDS: CARBIDOPA-LEVODOPA 10-100 MG 1 EACH TAB PO SCH ×3 (09:09→21:10)
[2022-07-19] MEDS: APIXABAN 5 MG TAB PO SCH (09:13)
--- NOTE | 2022-07-19 09:59 | P.CRDCN ---
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 Patient follows in the office with Dr. Thomas. We have been asked to see the patient in consultation for chest pain. Patient examined at the bedside. Patient was just admitted to the hospital secondary to chest pain. He was discharged home on 07/14/2022 in stable condition. Patient underwent a chest CT at that time which was negative for an acute process. He also underwent echocardiogram revealing ejection fraction 45-50%. Patient reports she was having pressure in the middle of his chest. He states the pain is worse with deep inspiration. He also reports occasional fluttering in his chest. Patient's vital signs are stable. * EKG reveals sinus mechanism with no signs of acute ischemia. Right bundle branch block. * Chest xray negative for acute process * Laboratory data: WBC 7.0. Hemoglobin 12.6. Platelet count 243. D-dimer 0.28. Sodium 142. Potassium 4.2. BUN 18. Creatinine 0.90. Troponin negative 4 * Current home cardiac medications include Eliquis 5mg BID, Lipitor 80 mg daily, colchicine 0.6 mg twice a day, Lasix 20 mg daily, metoprolol succinate 25 mg daily, Midodrine 5mg TID, and Entresto 24-26mg BID * Cardiac catheterization history: February 2020 with no evidence of significant obstructive coronary artery disease REVIEW OF SYSTEMS: At the time of my exam: CONSTITUTIONAL: Denies fever or chills. HEENT: Denies blurred vision, vision changes, or eye pain. Denies hemoptysis CARDIOVASCULAR: Denies chest pain. Denies orthopnea. Denies PND. Denies palpitations RESPIRATORY: Denies shortness of breath. GASTROINTESTINAL: Denies abdominal pain. Denies nausea or vomiting. HEMATOLOGIC: Denies bleeding disorders. GENITOURINARY: Denies any blood in urine. SKIN: Denies pruitis. Denies rash. PHYSICAL EXAM: VITAL SIGNS: Reviewed. GENERAL: Well-developed in no acute distress. HEENT: Head is normocephalic. Pupils are equal, round. Sclerae anicteric. Mucous membranes of the mouth are moist. Neck supple. No JVD or thyromegaly LUNGS: Respirations even and unlabored. Lungs essentially clear to auscultation bilaterally. HEART: Regular rate and rhythm. S1 and S2 heard. ABDOMEN: Soft. Nondistended. Nontender. EXTREMITIES: Normal range of motion. No clubbing or cyanosis. Peripheral pulses intact. No lower extremity edema NEUROLOGIC: Awake and alert. Oriented x 3. 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 Thomas Nurse practitioner note has been reviewed by physician. Signing provider agrees with the documented findings, assessment, and plan of care. Past Medical History Past Medical History: Atrial Fibrillation, Heart Failure, COPD, Hyperlipidemia, Hypertension, Myocardial Infarction ([place]), Osteoarthritis ([place]), Sleep Apne a/CPAP/BIPAP, Syncope Additional Past Medical History / Comment(s): see Dr Hester's H&P,Parkinson's,no mobility devices,uses O2 @ 2 L NC at hs and uses prn during the day(insurance is not covering home oxygen-pt purchased an oxygen machine that makes it's own oxygen off of [employer]),will be starting cpap in 3 weeks, DVT L subclavian/surgically removed, nonischemic cardiomyopathy/AICD/pacer in place, past ETOH - no use since 04/2020 Last Myocardial Infarction Date:: 02/25/20 History of Any Multi-Drug Resistant Organisms: None Reported Past Surgical History: AICD, Appendectomy, Cardiac Ablation, Cholecystectomy, Heart Catheterization, Pacemaker Additional Past Surgical History / Comment(s): 04/27/21 lap cholecystectomy, L upper extremity venogram/thrombolysis/thrombectomy Past Anesthesia/Blood Transfusion Reactions: No Reported Reaction Type of Cardiac Device: Permanent Pacemaker, AICD Device Placement Date:: 05/01/20 Past Psychological History: Anxiety Smoking Status: Former smoker Past Alcohol Use History: None Reported Past Drug Use History: None Reported - Past Family History Mother Family Medical History: Cancer Additional Family Medical History / Comment(s): Cancer in jaw. Father Family Medical History: COPD Medications and Allergies Home Medications Medication Instructions Recorded Confirmed Type Albuterol Sulfate [Ventolin HFA] 2 puff INHALATION RT-Q6H PRN 04/28/22 07/18/22 History Atorvastatin [Lipitor] 80 mg PO DAILY 04/28/22 07/18/22 History Furosemide [Lasix] 20 mg PO DAILY 04/28/22 07/18/22 History Nitroglycerin Sl Tabs [Nitrostat] 0.4 mg SL Q5M PRN 04/28/22 07/18/22 History Apixaban [Eliquis] 5 mg PO BID #30 tab 05/14/22 07/18/22 Rx Sacubitril/Valsartan [Entresto 24 1 tab PO BID 05/25/22 07/18/22 History mg-26 mg Tablet] Cyanocobalamin [Vitamin B-12] 1,000 mcg PO DAILY tab 06/09/22 07/18/22 Rx Famotidine [Pepcid] 20 mg PO BID 90 Days #180 tab 06/09/22 07/18/22 Rx Levothyroxine Sodium [Synthroid] 50 mcg PO DAILY@0630 90 Days #90 06/09/22 07/18/22 Rx tab Metoprolol Succinate (ER) [Toprol 25 mg PO DAILY 90 Days #90 tab 06/09/22 07/18/22 Rx XL] Fluticasone/Umeclidin/Vilanter 1 puff INHALATION RT-DAILY 06/28/22 07/18/22 History [Trelegy Ellipta 200-62.5-25] ALPRAZolam [Xanax] 0.25 mg PO BID PRN 07/02/22 07/18/22 History Budesonide/Formoterol Fumarate 2 puff INHALATION RT-BID 07/02/22 07/18/22 History [Symbicort 160-4.5 Mcg Inhaler] Carbidopa-Levodopa 10-100 mg 1 tab PO TID 07/02/22 07/18/22 History [Sinemet 10-100 mg] Melatonin 5 mg PO HS PRN 07/02/22 07/18/22 History Albuterol Nebulized [Ventolin 2.5 mg INHALATION RT-QID 30 Days 07/07/22 07/18/22 Rx Nebulized] #120 ml Colchicine [Colcrys] 0.6 mg PO BID 7 Days #14 each 07/07/22 07/18/22 Rx Doxycycline [Vibramycin] 100 mg PO BID 7 Days #14 cap 07/07/22 07/18/22 Rx Ipratropium [place] 0.2 mg INHALATION RT-BID 07/11/22 07/18/22 History Midodrine [ProAmatine] 5 mg PO AC-TID 30 Days #90 tab 07/14/22 07/18/22 Rx Allergies Allergy/AdvReac Type Severity Reaction Status Date / Time No Known Allergies Allergy Verified 07/18/22 11:27 Physical Exam Vitals: Vital Signs Temp Pulse Pulse Resp BP BP BP 07/19/22 08:11 68 07/19/22 08:00 65 07/19/22 07:00 98.1 F 58 L 16 100/67 07/19/22 02:00 97.9 F 60 15 103/68 07/18/22 21:01 63 07/18/22 20:09 105/69 07/18/22 20:00 98.0 F 68 16 07/18/22 17:24 97.5 F L 71 16 111/69 07/18/22 16:10 68 18 114/81 07/18/22 13:55 68 16 102/68 07/18/22 11:47 77 18 102/68 07/18/22 10:26 98.9 F 78 20 100/72 07/18/22 10:23 98 F 85 18 118/73 Pulse Ox 07/19/22 08:11 07/19/22 08:00 98 07/19/22 07:00 99 07/19/22 02:00 99 07/18/22 21:01 07/18/22 20:09 07/18/22 20:00 99 07/18/22 17:24 98 07/18/22 16:10 100 07/18/22 13:55 100 07/18/22 11:47 100 07/18/22 10:26 97 07/18/22 10:23 96 Intake and Output 07/18/22 07/19/22 07/19/22 22:59 06:59 14:59 Intake Total 118 Balance 118 Intake: Oral 118 Other: Voiding Method Toilet # Voids 2 Weight 74.843 kg Results 07/18/22 10:41 07/18/22 10:41 Cardiac Enzymes 07/18/22 07/18/22 07/18/22 Range/Units 10:41 10:41 16:53 AST 26 (17-59) U/L Troponin I <0.012 <0.012 (0.000-0.034) ng/mL 07/18/22 07/19/22 Range/Units 21:24 01:27 AST (17-59) U/L Troponin I <0.012 <0.012 (0.000-0.034) ng/mL Coagulation 07/18/22 Range/Units 10:41 PT 11.4 (9.0-12.0) sec APTT 27.0 (22.0-30.0) sec CBC 07/18/22 Range/Units 10:41 WBC 7.0 (3.8-10.6) k/uL RBC 4.21 L (4.30-5.90) m/uL Hgb 12.6 L (13.0-17.5) gm/dL Hct 38.1 L (39.0-53.0) % Plt Count 243 (150-450) k/uL Comprehensive Metabolic Panel 07/18/22 Range/Units 10:41 Sodium 142 (137-145) mmol/L Potassium 4.2 (3.5-5.1) mmol/L Chloride 110 H (98-107) mmol/L Carbon Dioxide 21 L (22-30) mmol/L BUN 18 (9-20) mg/dL Creatinine 0.90 (0.66-1.25) mg/dL Glucose 103 H (74-99) mg/dL Calcium 9.5 (8.4-10.2) mg/dL AST 26 (17-59) U/L ALT 18 (4-49) U/L Alkaline Phosphatase 78 (38-126) U/L Total Protein 7.2 (6.3-8.2) g/dL Albumin 4.3 (3.5-5.0) g/dL Current Medications Generic Name Dose Route Start Last Admin Trade Name Freq PRN Reason Stop Dose Admin Acetaminophen 650 mg 07/18/22 16:03 Acetaminophen Tab 325 Mg Tab PO Q6HR PRN Mild Pain or Fever > 100.5 Hydrocodone Bitart/Acetaminophen 1 each 07/18/22 16:03 Hydrocodone/Apap 5-325mg 1 Each Tab PO Q4HR PRN Moderate Pain (Scale 4 to 6) Albuterol Sulfate 2.5 mg 07/18/22 20:00 07/19/22 07:57 Albuterol Nebulized 2.5 Mg/3 Ml INHALATION 2.5 mg RT-QID GONZÁLEZ Administration Albuterol Sulfate 2 puff 07/18/22 17:27 Albuterol Hfa Inhaler INHALATION RT-Q6H PRN Shortness Of Breath Alprazolam 0.25 mg 07/18/22 17:27 Alprazolam 0.25 Mg Tab PO BID PRN Anxiety Apixaban 5 mg 07/18/22 21:00 07/18/22 20:10 Apixaban 5 Mg Tab PO 5 mg BID GONZÁLEZ Administration Protocol Atorvastatin Calcium 80 mg 07/19/22 09:00 Atorvastatin 80 Mg Tab PO DAILY GONZÁLEZ Budesonide/Formoterol Fumarate 2 puff 07/18/22 20:00 07/19/22 07:57 Symbicort 160-4.5 Mcg Inhaler INHALATION 2 puff RT-BID GONZÁLEZ Administration Carbidopa/Levodopa 1 each 07/18/22 22:00 07/18/22 20:10 Carbidopa-Levodopa 10-100 Mg 1 Each Tab PO 1 each TID GONZÁLEZ Administration Colchicine 0.6 mg 07/18/22 21:00 07/18/22 20:10 Colchicine 0.6 Mg Each PO 0.6 mg BID GONZÁLEZ Administration Cyanocobalamin 1,000 mcg 07/19/22 09:00 Cyanocobalamin 500 Mcg Tab PO DAILY GONZÁLEZ Famotidine 20 mg 07/18/22 21:00 07/18/22 20:10 Famotidine 20 Mg Tab PO 20 mg BID GONZÁLEZ Administration Furosemide 20 mg 07/19/22 09:00 Furosemide 20 Mg Tab PO DAILY GONZÁLEZ Ipratropium [place] 0.5 mg 07/18/22 20:00 07/19/22 07:57 Ipratropium 0.5 Mg/2.5 Ml Nebu INHALATION 0.5 mg RT-QID GONZÁLEZ Administration Levothyroxine Sodium 50 mcg 07/19/22 06:30 07/19/22 06:23 Levothyroxine 50 Mcg Tab PO 50 mcg DAILY@0630 GONZÁLEZ Administration Melatonin 5 mg 07/18/22 17:27 Melatonin 5 Mg Tablet PO HS PRN Insomnia Metoprolol Succinate 25 mg 07/19/22 09:00 Metoprolol Succinate (Er) 25 Mg Tab.Er.24h PO DAILY GONZÁLEZ Midodrine 5 mg 07/18/22 17:30 07/19/22 06:23 Midodrine 5 Mg Tab PO 5 mg AC-TID GONZÁLEZ Administration Morphine Sulfate 2 mg 07/18/22 16:03 07/19/22 01:51 Morphine Sulfate 2 Mg/Ml Syringe IV 2 mg Q4HR PRN Administration Severe Pain (Scale 7 to 10) Naloxone HCl 0.2 mg 07/18/22 16:03 Naloxone 0.4 Mg/Ml 1 Ml Vial IV Q2M PRN Opioid Reversal Nitroglycerin 0.4 mg 07/18/22 17:27 Nitroglycerin Sl Tabs 0.4 Mg Tab SUBLINGUAL Q5M PRN Chest Pain Ondansetron HCl 4 mg 07/18/22 16:03 Ondansetron 4 Mg/2 Ml Vial IVP Q8HR PRN Nausea And Vomiting Sacubitril/Valsartan 1 each 07/18/22 21:00 07/18/22 20:10 Sacubitril/Valsartan 24 Mg-26 Mg Tablet PO 1 each BID GONZÁLEZ Administration Intake and Output 07/18/22 07/19/22 07/19/22 22:59 06:59 14:59 Intake Total 118 Balance 118 Intake: Oral 118 Other: Voiding Method Toilet # Voids 2 Weight 74.843 kg 07/18/22 10:41 07/18/22 10:41
[2022-07-19] MEDS: LACTATED RINGERS 1,000 ML IV SCH (11:04)
--- NOTE | 2022-07-19 11:35 | P.GSCN ---
History of Present Illness Consult date: 07/19/22 History of present illness: CHIEF COMPLAINT: Chest pain and epigastric abdominal pain HISTORY OF PRESENT ILLNESS: This 61-year-old male who presented to hospital initially with complaints of chest pain however he points more towards the epigastric area. He reports that he's had pain there for the last 2 months. The pain is worse after eating spicy foods. He denies any nausea or vomiting. He reports a tightness across the abdomen. He denies any acid reflux. He denies any history of stomach ulcers. Denies any history of NSAID use. Denies any prior EGD or colonoscopy. He had a computed tomography scan of the chest on his last admission earlier in July that did show definite evidence of thickening distal esophagus. At that time he came in with chest pain and acute coronary syndrome was ruled out. He is on Eliquis for his atrial fibrillation. Last dose taken was yesterday evening. Patient also does admit to hoarseness. Denies any smoking or alcohol history. Patient reports having regular bowel movements. Patient has been evaluated by cardiology service and cleared by cardiology for discharge. Patient did have improvement of symptoms with GI cocktail in ER. PAST MEDICAL HISTORY: See below PAST SURGICAL HISTORY: See below MEDICATIONS: See below ALLERGIES: See below SOCIAL HISTORY: No illicit drug use. REVIEW OF SYSTEMS: CONSTITUTIONAL: Denies fever or chills. HEENT: Denies blurred vision, vision changes, or eye pain. Denies hemoptysis CARDIOVASCULAR: Denies chest pain or pressure. RESPIRATORY: No shortness of breath. GASTROINTESTINAL: See HPI for pertinent findings HEMATOLOGIC: Denies bleeding disorders. GENITOURINARY: Denies any blood in urine or increased urinary frequency. SKIN: Denies pruitis. Denies rash. PHYSICAL EXAM: VITAL SIGNS: Reviewed GENERAL: Well-developed in no acute distress. HEENT: No sclera icterus. Extraocular movements grossly intact. Moist buccal mucosa. Head is atraumatic, normocephalic. No nasal drainage. ABDOMEN: Soft. Epigastric tenderness with palpation, mildly distended NEUROLOGIC: Alert and oriented. Cranial nerves II through XII grossly intact. LABORATORY DATA: WBC is 7.0 Hgb 12.6 platelets 243 INR 1.1 D-dimer 0.28 Sodium is 142 potassium 4.2 creatinine 0.90 Troponins negative 4 Lipase 32 LFTs normal IMAGING: Chest CT from 07/12/2022 no acute thoracic process. No evidence of pericardial effusion or pericardial thickening. Similar circumferential wall thickening of the distal esophagus. Correlate clinically for symptoms of esophagitis reflux and dysphagia. ASSESSMENT: 1. Epigastric abdominal pain 2. Thickening of the distal esophagus noted on computed tomography scan PLAN: -Patient scheduled for EGD tomorrow with Dr. walton -Patient can have regular diet today -Nothing by mouth after midnight -Add IV Protonix -Hold Eliquis due to surgical intervention Thank you for this consultation Physician Horticulture Professor note has been reviewed by physician. Signing provider agrees with the documented findings, assessment, and plan of care. Past Medical History Past Medical History: Atrial Fibrillation, Heart Failure, COPD, Hyperlipidemia, Hypertension, Myocardial Infarction ([place]), Osteoarthritis (OA), Sleep Ap conner/CPAP/BIPAP, Syncope Additional Past Medical History / Comment(s): see Dr Hester's H&P,Parkinson's,no mobility devices,uses O2 @ 2 L NC at hs and uses prn during the day(insurance is not covering home oxygen-pt purchased an oxygen machine that makes it's own oxygen off of [employer]),will be starting cpap in 3 weeks, DVT L subclavian/surgically removed, nonischemic cardiomyopathy/AICD/pacer in place, past ETOH - no use since 04/2020 Last Myocardial Infarction Date:: 02/25/20 History of Any Multi-Drug Resistant Organisms: None Reported Past Surgical History: AICD, Appendectomy, Cardiac Ablation, Cholecystectomy, Heart Catheterization, Pacemaker Additional Past Surgical History / Comment(s): 04/27/21 lap cholecystectomy, L upper extremity venogram/thrombolysis/thrombectomy Past Anesthesia/Blood Transfusion Reactions: No Reported Reaction Type of Cardiac Device: Permanent Pacemaker, AICD Device Placement Date:: 05/01/20 Past Psychological History: Anxiety Smoking Status: Former smoker Past Alcohol Use History: None Reported Past Drug Use History: None Reported - Past Family History Mother Family Medical History: Cancer Additional Family Medical History / Comment(s): Cancer in jaw. Father Family Medical History: COPD Medications and Allergies Home Medications Medication Instructions Recorded Confirmed Type Albuterol Sulfate [Ventolin HFA] 2 puff INHALATION RT-Q6H PRN 04/28/22 07/18/22 History Atorvastatin [Lipitor] 80 mg PO DAILY 04/28/22 07/18/22 History Furosemide [Lasix] 20 mg PO DAILY 04/28/22 07/18/22 History Nitroglycerin Sl Tabs [Nitrostat] 0.4 mg SL Q5M PRN 04/28/22 07/18/22 History Apixaban [Eliquis] 5 mg PO BID #30 tab 05/14/22 07/18/22 Rx Sacubitril/Valsartan [Entresto 24 1 tab PO BID 05/25/22 07/18/22 History mg-26 mg Tablet] Cyanocobalamin [Vitamin B-12] 1,000 mcg PO DAILY tab 06/09/22 07/18/22 Rx Famotidine [Pepcid] 20 mg PO BID 90 Days #180 tab 06/09/22 07/18/22 Rx Levothyroxine Sodium [Synthroid] 50 mcg PO DAILY@0630 90 Days #90 06/09/22 07/18/22 Rx tab Metoprolol Succinate (ER) [Toprol 25 mg PO DAILY 90 Days #90 tab 06/09/22 07/18/22 Rx XL] Fluticasone/Umeclidin/Vilanter 1 puff INHALATION RT-DAILY 06/28/22 07/18/22 History [Trelegy Ellipta 200-62.5-25] ALPRAZolam [Xanax] 0.25 mg PO BID PRN 07/02/22 07/18/22 History Budesonide/Formoterol Fumarate 2 puff INHALATION RT-BID 07/02/22 07/18/22 History [Symbicort 160-4.5 Mcg Inhaler] Carbidopa-Levodopa 10-100 mg 1 tab PO TID 07/02/22 07/18/22 History [Sinemet 10-100 mg] Melatonin 5 mg PO HS PRN 07/02/22 07/18/22 History Albuterol Nebulized [Ventolin 2.5 mg INHALATION RT-QID 30 Days 07/07/22 07/18/22 Rx Nebulized] #120 ml Colchicine [Colcrys] 0.6 mg PO BID 7 Days #14 each 07/07/22 07/18/22 Rx Doxycycline [Vibramycin] 100 mg PO BID 7 Days #14 cap 07/07/22 07/18/22 Rx Ipratropium [place] 0.2 mg INHALATION RT-BID 07/11/22 07/18/22 History Midodrine [ProAmatine] 5 mg PO AC-TID 30 Days #90 tab 07/14/22 07/18/22 Rx Allergies Allergy/AdvReac Type Severity Reaction Status Date / Time No Known Allergies Allergy Verified 07/18/22 11:27 Surgical - Exam Vital Signs Temp Pulse Resp BP Pulse Ox 98 F 85 18 118/73 96 07/18/22 10:23 07/18/22 10:23 07/18/22 10:23 07/18/22 10:23 07/18/22 10:23 Results - Labs 07/18/22 10:41 07/18/22 10:41
[2022-07-19] MEDS: PANTOPRAZOLE 40 MG/10 ML VIAL IVP SCH (12:23)
[2022-07-20] MEDS: LEVOTHYROXINE 50 MCG TAB PO SCH (06:03)
[2022-07-20] MEDS: MIDODRINE 5 MG TAB PO SCH ×2 (06:03→12:12)
[2022-07-20 07:39] VITALS: RESP 18
[2022-07-20] MEDS: ALBUTEROL NEBULIZED 2.5 MG/3 ML INHALATION SCH ×3 (07:47→15:12)
[2022-07-20] MEDS: SYMBICORT 160-4.5 MCG INHALER INHALATION SCH (07:49)
[2022-07-20] MEDS: IPRATROPIUM 0.5 MG/2.5 ML NEBU INHALATION SCH ×3 (07:49→15:12)
[2022-07-20] MEDS: PANTOPRAZOLE 40 MG/10 ML VIAL IVP SCH (08:17)
[2022-07-20] MEDS: FAMOTIDINE 20 MG TAB PO SCH (08:17)
[2022-07-20] MEDS: ATORVASTATIN 80 MG TAB PO SCH (08:17)
[2022-07-20] MEDS: ALPRAZolam 0.25 MG TAB PO PRN (08:18)
[2022-07-20] MEDS: MORPHINE SULFATE 2 MG/ML SYRINGE IV PRN (08:18)
[2022-07-20] MEDS: METOPROLOL SUCCINATE (ER) 25 MG TAB.ER.24H PO SCH (08:18)
[2022-07-20] MEDS: CYANOCOBALAMIN 500 MCG TAB PO SCH (08:18)
[2022-07-20] MEDS: CARBIDOPA-LEVODOPA 10-100 MG 1 EACH TAB PO SCH ×2 (08:18→17:21)
[2022-07-20] MEDS: SACUBITRIL/VALSARTAN 24 MG-26 MG TABLET PO SCH (08:18)
[2022-07-20] MEDS: FUROSEMIDE 20 MG TAB PO SCH (08:18)
[2022-07-20] MEDS: COLCHICINE 0.6 MG EACH PO SCH (08:19)
[2022-07-20 09:46] LABS: HGB 12.4 gm/dL (13.0-17.5); MCH 30.8 pg (25.0-35.0); MCHC 33.5 g/dL (31.0-37.0); MCV 91.8 fL (80.0-100.0); Mean Platelet Volume 8.8; Platelet Count 207 k/uL (150-450); RBC 4.03 m/uL (4.30-5.90); WBC 5.7 k/uL (3.8-10.6)
[2022-07-20 09:58] LABS: African American GFR (CKD) >90 (>60 ml/min/1.73 sqM); Anion Gap 6 mmol/L; Blood Urea Nitrogen 19 mg/dL (9-20); Calcium 8.7 mg/dL (8.4-10.2); Carbon Dioxide 26 mmol/L (22-30); Chloride 106 mmol/L (98-107); Glucose 102 mg/dL (74-99); Non-African American GFR(CKD) 84 (>60 ml/min/1.73 sqM); Potassium 3.9 mmol/L (3.5-5.1); Sodium 138 mmol/L (137-145)
[2022-07-20] MEDS ORDERED: LIDOCAINE 2% INJ 20 MG/ML (2 ML VIAL) ONE (12:28)
[2022-07-20] MEDS ORDERED: PROPOFOL 10 MG/ML 20 ML VIAL IV ONE (12:28)
[2022-07-20] MEDS ORDERED: IV FLUID CONTINUATION 1,000 ML IV ONE (12:28)
--- NOTE | 2022-07-20 12:50 | P.OP ---
Date of Procedure: 07/20/22 Preoperative Diagnosis: Epigastric pain Dysphagia Postoperative Diagnosis: Sliding hiatal hernia Mild antral gastritis Procedure(s) Performed: EGD Anesthesia: MAC Surgeon: Castillo Carrillo Pathology: other (Antrum, esophagus) Condition: stable Description of Procedure: The patient's placed on the operative table in the lateral position. He received IV sedation. The gastro-/oropharynx passed in the esophagus and then placed into the stomach. Scope was then placed through the pylorus. The first and second portion of the duodenum appeared normal. Scope was then brought back the antrum and this appeared mildly inflamed. A biopsies performed. Scope was then retroflexed and remainder the stomach appeared normal. There was a sliding hiatal hernia noted. The GE junction was at 38 cm per the distal esophagus was minimal inflamed. A biopsies performed. The proximal esophagus appeared normal. Scope withdrawn for patient.
[2022-07-20 14:04] VITALS: TEMP 97.5
[2022-07-20 15:58] VITALS: BP 91/60; PULSE 60
[2022-07-20] MEDS: LACTATED RINGERS 1,000 ML IV SCH (17:21)
== END 2022-07-20 17:35 | disposition home or self-care (01) | DRG 254 ==
LOC: EC 10:14 → 3SCARD 16:17 → 6NMEDSUR 16:41
PROVIDERS: ADMIT Family Medicine; ATTEND Family Medicine
PROC: 0DB78ZX Excision of Stomach, Pylorus, Via Natural or Artificial Opening Endoscopic, Diagnostic (ICD-10-PCS; principal; 2022-07-20 16:20)
DX: K44.9 Diaphragmatic hernia without obstruction or gangrene (principal); K29.70 Gastritis, unspecified, without bleeding; I11.0 Hypertensive heart disease with heart failure; E78.5 Hyperlipidemia, unspecified; G20 Parkinson's disease; I25.2 Old myocardial infarction; I42.8 Other cardiomyopathies; I45.10 Unspecified right bundle-branch block; I50.22 Chronic systolic (congestive) heart failure; I48.91 Unspecified atrial fibrillation; F10.21 Alcohol dependence, in remission; F41.9 Anxiety disorder, unspecified; G47.30 Sleep apnea, unspecified; I48.92 Unspecified atrial flutter; Z79.01 Long term (current) use of anticoagulants; M19.90 Unspecified osteoarthritis, unspecified site; Z99.81 Dependence on supplemental oxygen; J44.9 Chronic obstructive pulmonary disease, unspecified; K21.00 Gastro-esophageal reflux disease with esophagitis, without bleeding; Z79.51 Long term (current) use of inhaled steroids; Z79.890 Hormone replacement therapy; Z79.899 Other long term (current) drug therapy; Z82.5 Family history of asthma and other chronic lower respiratory diseases; Z86.718 Personal history of other venous thrombosis and embolism; Z87.891 Personal history of nicotine dependence; Z95.810 Presence of automatic (implantable) cardiac defibrillator
CPT/HCPCS: 36415; 43239; 71046; 80048; 80053; 82150; 83690; 83735; 84484; 85025; 85027; 85379; 85610; 85730; 93005; 94640; 94760; 96374; 96375; 96376; 99285

== ENCOUNTER → 2022-08-18 | Outpatient (CLI) | payer OTHER ==
[2022-08-18 15:56] LABS: Basophils # (A) 0.04 X 10*3/uL (0.00-0.10); Basophils % (A) 0.5 %; Eosinophils # (A) 0.18 X 10*3/uL (0.04-0.35); Eosinophils % (A) 2.3 %; HCT 41.6 % (39.6-50.0); HGB 12.9 g/dL (13.0-17.0); Immature Grans, Automated 0.4 %; Lymphocytes # (A) 1.62 X 10*3/uL (0.90-5.00); Lymphocytes % (A) 20.9 %; MCH 29.7 pg (27.0-32.0); MCV 95.6 fL (80.0-97.0); Mean Platelet Volume 11.3 fL (9.5-12.2); Monocytes # (A) 0.64 X 10*3/uL (0.20-1.00); Monocytes % (A) 8.3 %; NRBC Per 100 WBC 0 /100 WBCS (0.0-0.0); Neutrophils # (A) 5.24 X 10*3/uL (1.80-7.70); Neutrophils % (A) 67.6 %; Platelet Count 273 X 10*3/uL (140-440); RBC 4.35 X 10*6/uL (4.40-5.60); RDW 14.4 % (11.5-14.5); WBC 7.75 X 10*3/uL (4.50-10.00)
== END | disposition home or self-care (01) ==
LOC: LABPAT 10:34
PROVIDERS: ATTEND Surgery
DX: Z01.818 Encounter for other preprocedural examination (principal); I45.10 Unspecified right bundle-branch block; K21.9 Gastro-esophageal reflux disease without esophagitis; R53.83 Other fatigue
CPT/HCPCS: 85025; 93005

== ENCOUNTER 2022-08-29 07:18 | Day surgery (SDC) | payer OTHER ==
[~2022-08-29 07:18] MED LIST changes: +ACETAMINOPHEN TAB 500 MG TAB PO PRN; -DEXAMETHASONE SOD PHOSPHATE 4 MG/ML 1 ML VIAL IV ONE; +HEPARIN SODIUM,PORCINE/PF 5,000 UNIT/0.5 ML SYRINGE SQ PRN; -LACTATED RINGERS 1,000 ML IV SCH; -LIDOCAINE 1% (10MG/ML) FOR IV START INTRADERMA PRN; -ONDANSETRON 4 MG/2 ML VIAL IVP PRN; -SODIUM CHLORIDE 0.9% 1,000 ML IV SCH; -fentaNYL (PF) 50 MCG/ML 2 ML AMP IV PRN
[2022-08-29] MEDS ORDERED: LIDOCAINE 1% (10MG/ML) FOR IV START INTRADERMA PRN (07:37)
[2022-08-29] MEDS ORDERED: DEXAMETHASONE SOD PHOSPHATE 4 MG/ML 1 ML VIAL IV ONE (07:37)
[2022-08-29] MEDS ORDERED: droPERidol 5 MG/2 ML VIAL IVP ONE (07:37)
[2022-08-29] MEDS ORDERED: ONDANSETRON 4 MG/2 ML VIAL IVP ONE (07:37)
[2022-08-29] MEDS: LACTATED RINGERS 1,000 ML IV SCH (07:44)
[2022-08-29] MEDS ORDERED: ACETAMINOPHEN TAB 500 MG TAB ONE (07:54)
[2022-08-29] MEDS ORDERED: HEPARIN SODIUM,PORCINE/PF 5,000 UNIT/0.5 ML SYRINGE SQ ONE (07:54)
[2022-08-29 08:08] LABS: Glucose,Whole Blood 104 mg/dL (70-110)
[2022-08-29 08:32] LABS: ALT 14 U/L (4-49); AST 27 U/L (17-59); African American GFR (CKD) >90 (>60 ml/min/1.73 sqM); Albumin 4.2 g/dL (3.5-5.0); Alkaline Phosphatase 85 U/L (38-126); Anion Gap 9 mmol/L; Blood Urea Nitrogen 16 mg/dL (9-20); Calcium 8.9 mg/dL (8.4-10.2); Carbon Dioxide 26 mmol/L (22-30); Chloride 106 mmol/L (98-107); Glucose 102 mg/dL (74-99); Non-African American GFR(CKD) >90 (>60 ml/min/1.73 sqM); Potassium 3.7 mmol/L (3.5-5.1); Sodium 141 mmol/L (137-145); Total Bilirubin 0.5 mg/dL (0.2-1.3); Total Protein 6.9 g/dL (6.3-8.2)
[2022-08-29] MEDS ORDERED: SUCCINYLCHOLINE CHLORIDE 200 MG/10 ML VIAL IV ONE (08:33)
[2022-08-29] MEDS ORDERED: KETOROLAC 15 MG/ML 1 ML VIAL ONE (08:33)
[2022-08-29] MEDS ORDERED: LIDOCAINE 2% INJ 20 MG/ML (2 ML VIAL) ONE (08:33)
[2022-08-29] MEDS ORDERED: ROCURONIUM 10 MG/ML (5 ML VIAL) IV ONE (08:33)
[2022-08-29] MEDS ORDERED: MIDAZOLAM 2 MG/2 ML VIAL ONE (08:33)
[2022-08-29] MEDS ORDERED: ETOMIDATE 2 MG/ML 10 ML VIAL ONE (08:33)
[2022-08-29] MEDS ORDERED: NEOSTIGMINE 1 MG/ML 10 ML VIAL ONE (08:33)
[2022-08-29] MEDS ORDERED: fentaNYL (PF) 50 MCG/ML 2 ML AMP ONE (08:33)
[2022-08-29] MEDS ORDERED: GLYCOPYRROLATE 0.2 MG/ML 2 ML VIAL ONE (08:33)
[2022-08-29] MEDS ORDERED: BUPIVACAINE (PF) 0.5% 30 ML VIAL SQ ONE (09:03)
[2022-08-29] MEDS ORDERED: LACTATED RINGERS 1,000 ML IV ONE (09:45)
--- NOTE | 2022-08-29 10:04 | P.OP ---
Date of Procedure: 08/29/22 Preoperative Diagnosis: GERD Postoperative Diagnosis: GERD Procedure(s) Performed: Laparoscopic Carly fundoplication Anesthesia: RADHA Surgeon: Castillo Carrillo Estimated Blood Loss (ml): 10 Pathology: none sent Condition: stable Disposition: PACU Description of Procedure: The patient was placed on the operating table in the supine position. The patient received general anesthesia. And was placed in dorsal lithotomy position. The patient was prepped and draped in the usual sterile fashion. The skin incision sites were anesthetized with 1% local Xylocaine. The skin was incised in the left periumbilical area and then using a blade less 5 mm trocar under direct visualization panel cavity was entered. After adequate insufflation the laparoscope was then placed into the peritoneal cavity. Next a 5 mm trochars placed in the right epigastric position. Another 5 millimeter trocar the right lateral position. Another 5 millimeter trocar in the left lateral position a 5 mm trocar is placed in the left epigastric position. And then the initial 5 mm trocar was exchanged for a 10 mm trocar. The left lateral lobe liver was retracted. The hernia was seen. The crural defect was then dissected using the Harmonic scissors device. A 360 crural dissection was pe rformed the esophagus stomach was reduced back into the peritoneal Cavity. The crural defect was then closed using 2-0 Ethibond suture. Next the fundus of the stomach was mobilized using the [place] scissors device. and then a 58-Sinhala bougie dilator was placed oropharynx passed into the esophagus and stomach the fundal plication wrap was then performed by grasping the fundus posteriorly and bringing it around the esophagus and stomach fundoplication was then performed using 2-0 Ethibond suture. Care was taken that the fundal location rested over top of the intra-abdominal esophagus. There was no injury seen to the stomach or esophagus. The dilator was then withdrawn. The abdomen was irrigated there is no bleeding seen. The trochars were then withdrawn and then skin incision sites were closed using 3-0 Monocryl suture Steri-Strips are applied. Patient thought procedure well and sent to recovery room in stable condition.
[2022-08-29] MEDS: HYDROmorphone 0.5 MG/0.5 ML SYRINGE IVP PRN ×4 (10:11→11:19)
[2022-08-29] MEDS: MEPERIDINE 50 MG/ML SYRINGE IVP ONE ×2 (12:18→12:37)
[2022-08-29] MEDS: D5-0.45% NACL WITH KCL 20MEQ/L 1,000 ML IV SCH ×2 (14:02→21:48)
[2022-08-29] MEDS ORDERED: ALBUTEROL NEBULIZED 2.5 MG/3 ML INHALATION PRN (14:10)
[2022-08-29] MEDS ORDERED: MELATONIN 5 MG TABLET PO PRN (14:10)
[2022-08-29] MEDS: HYDROmorphone 1 MG/ML 1 ML SYRINGE IVP PRN ×2 (15:14→19:57)
[2022-08-29] MEDS: IPRATROPIUM-ALBUTEROL 3 ML NEB INHALATION SCH ×2 (15:28→20:53)
[2022-08-29] MEDS ORDERED: ALBUTEROL NEBULIZED 2.5 MG/3 ML INHALATION SCH (16:00)
[2022-08-29] MEDS: CARBIDOPA-LEVODOPA 10-100 MG 1 EACH TAB PO SCH ×2 (16:36→21:42)
[2022-08-29] MEDS: MIDODRINE 5 MG TAB PO SCH (16:36)
[2022-08-29] MEDS: METOCLOPRAMIDE 5 MG/ML 2 ML VIAL IVP SCH (17:31)
[2022-08-29] MEDS ORDERED: SYMBICORT 80-4.5 MCG INHALER INHALATION SCH (20:00)
[2022-08-29] MEDS ORDERED: IPRATROPIUM 0.5 MG/2.5 ML NEBU INHALATION SCH (20:00)
[2022-08-29] MEDS: SYMBICORT 160-4.5 MCG INHALER INHALATION SCH (20:53)
[2022-08-29] MEDS: SACUBITRIL/VALSARTAN 24 MG-26 MG TABLET PO SCH (21:42)
[2022-08-29] MEDS: FAMOTIDINE 20 MG TAB PO SCH (21:42)
[2022-08-29] MEDS: ALPRAZolam 0.25 MG TAB PO PRN (21:45)
[2022-08-30] MEDS: METOCLOPRAMIDE 5 MG/ML 2 ML VIAL IVP SCH ×4 (00:19→18:11)
--- NOTE | 2022-08-30 01:10 | CONS ---
CONSULTATION HISTORY OF PRESENT ILLNESS: This is a 62-year-old white male with history of hiatal hernia. Cleared by cardiac for hiatal hernia repair. He is doing better. He has a lot of gas in his chest. REVIEW OF SYSTEMS: A 14-point review of systems negative. HOME MEDICINES: 1. Symbicort 160/4.5 two puffs b.i.d. 2. Famotidine 20 b.i.d. 3. Sinemet 10/100 q.i.d. 4. Entresto 24/26 b.i.d. 5. Midodrine 5 mg a.c. t.i.d. 6. Atorvastatin 40 mg daily. 7. Eliquis 5 mg b.i.d. 8. Melatonin 5 mg daily. 9. Trelegy 200/62.5 one puff daily. 10. 0.25 q.6h p.r.n. 11.Omeprazole 20 b.i.d. ASSESSMENT AND PLAN: Status post hiatal hernia repair, systolic CHF, orthostatic hypotension, dyslipidemia, Parkinson's. Prognosis guarded. Continue current treatments. Home medications have been reordered. Oxygen at night. Prognosis guarded. MMODL / IJN: [id number] /
[2022-08-30] MEDS: MIDODRINE 5 MG TAB PO SCH ×2 (05:54→18:11)
[2022-08-30] MEDS: D5-0.45% NACL WITH KCL 20MEQ/L 1,000 ML IV SCH ×2 (05:54→14:24)
[2022-08-30] MEDS: HYDROmorphone 1 MG/ML 1 ML SYRINGE IVP PRN (05:56)
[2022-08-30] MEDS ORDERED: LEVOTHYROXINE 50 MCG TAB PO SCH (06:30)
[2022-08-30] MEDS: LACTATED RINGERS 1,000 ML IV SCH (06:39)
[2022-08-30] MEDS ORDERED: IPRATROPIUM 0.5 MG/2.5 ML NEBU INHALATION SCH (08:00)
[2022-08-30 08:04] VITALS: TEMP 98
[2022-08-30] MEDS: CARBIDOPA-LEVODOPA 10-100 MG 1 EACH TAB PO SCH ×2 (08:04→16:15)
[2022-08-30] MEDS: SACUBITRIL/VALSARTAN 24 MG-26 MG TABLET PO SCH (08:05)
[2022-08-30] MEDS: FAMOTIDINE 20 MG TAB PO SCH (08:05)
[2022-08-30] MEDS: IPRATROPIUM-ALBUTEROL 3 ML NEB INHALATION SCH ×3 (08:45→15:57)
[2022-08-30] MEDS: SYMBICORT 160-4.5 MCG INHALER INHALATION SCH (08:45)
[2022-08-30] MEDS ORDERED: METOPROLOL SUCCINATE (ER) 25 MG TAB.ER.24H PO SCH (09:00)
[2022-08-30] MEDS ORDERED: ENOXAPARIN 40 MG/0.4 ML SYRINGE SQ SCH (09:00)
[2022-08-30] MEDS ORDERED: ATORVASTATIN 80 MG TAB PO SCH (09:00)
[2022-08-30] MEDS ORDERED: FUROSEMIDE 20 MG TAB PO SCH (09:00)
[2022-08-30] MEDS ORDERED: CYANOCOBALAMIN 500 MCG TAB PO SCH (09:00)
[2022-08-30] MEDS: HYDROcodone/APAP 5-325MG 1 EACH TAB PO PRN ×2 (09:53→16:14)
[2022-08-30 11:35] VITALS: BMI 27.1
[2022-08-30] MEDS: ALPRAZolam 0.25 MG TAB PO PRN (13:10)
--- NOTE | 2022-08-30 13:11 | P.DS ---
Providers Expected date of discharge: 08/30/22 Attending physician: Castillo Carrillo Consults: 08/29/22 10:04 Consult Physician Routine Consulting Provider: Felix Burgos Consult Reason/Comments: med manage Do you want consulting provider notified?: Yes Primary care physician: Felix Burgos Hospital Course: Discharge diagnosis 1. GERD status post laparoscopic Carly fundoplication Hospital course This is a 62-year-old male with a known history of GERD. He is status post laparoscopic Carly fundoplication. Patient tolerated surgery well. He is tolerating diet. His pain is controlled. He has been up and ambulating. He is afebrile. He is stable for discharge. Please refer to chart for any further details. Physician Service Order Clerk note has been reviewed by physician. Signing provider agrees with the documented findings, assessment, and plan of care. Patient Condition at Discharge: Stable Plan - Discharge Summary Discharge Rx Participant: Yes New Discharge Prescriptions: Continue Furosemide [Lasix] 20 mg PO QAM Atorvastatin [Lipitor] 80 mg PO DAILY Famotidine [Pepcid] 20 mg PO BID 90 Days #180 tab Levothyroxine Sodium [Synthroid] 50 mcg PO DAILY@0630 90 Days #90 tab Cyanocobalamin [Vitamin B-12] 1,000 mcg PO DAILY tab Fluticasone/Umeclidin/Vilanter [Trelegy Ellipta 200-62.5-25] 1 puff INHALATION QAM Melatonin 5 mg PO HS PRN PRN Reason: Insomnia Ipratropium Gideon 0.2 mg INHALATION RT-BID Metoprolol Succinate (ER) [Toprol XL] 25 mg PO QAM Midodrine [ProAmatine] 5 mg PO BID Albuterol Sulfate [Ventolin HFA] 2 puff INHALATION RT-Q6H PRN PRN Reason: Shortness Of Breath Nitroglycerin Sl Tabs [Nitrostat] 0.4 mg SL Q5M PRN PRN Reason: Chest Pain Sacubitril/Valsartan [Entresto 24 mg-26 mg Tablet] 1 tab PO BID Carbidopa-Levodopa 10-100 mg [Sinemet 10-100 mg] 1 tab PO TID Budesonide/Formoterol Fumarate [Symbicort 160-4.5 Mcg Inhaler] 2 puff INHALATION RT-BID ALPRAZolam [Xanax] 0.25 mg PO TID PRN PRN Reason: Anxiety Albuterol Nebulized [Ventolin Nebulized] 2.5 mg INHALATION RT-QID 30 Days #120 ml No Action Apixaban [Eliquis] 5 mg PO BID #30 tab Discharge Medication List Albuterol Sulfate [Ventolin HFA] 2 puff INHALATION RT-Q6H PRN 04/28/22 [History] Atorvastatin [Lipitor] 80 mg PO DAILY 04/28/22 [History] Furosemide [Lasix] 20 mg PO QAM 04/28/22 [History] Nitroglycerin Sl Tabs [Nitrostat] 0.4 mg SL Q5M PRN 04/28/22 [History] Apixaban [Eliquis] 5 mg PO BID #30 tab 05/14/22 [Rx] Sacubitril/Valsartan [Entresto 24 mg-26 mg Tablet] 1 tab PO BID 05/25/22 [History] Cyanocobalamin [Vitamin B-12] 1,000 mcg PO DAILY tab 06/09/22 [Rx] Famotidine [Pepcid] 20 mg PO BID 90 Days #180 tab 06/09/22 [Rx] Levothyroxine Sodium [Synthroid] 50 mcg PO DAILY@0630 90 Days #90 tab 06/09/22 [Rx] Fluticasone/Umeclidin/Vilanter [Trelegy Ellipta 200-62.5-25] 1 puff INHALATION QAM 06/28/22 [History] ALPRAZolam [Xanax] 0.25 mg PO TID PRN 07/02/22 [History] Budesonide/Formoterol Fumarate [Symbicort 160-4.5 Mcg Inhaler] 2 puff INHALATION RT-BID 07/02/22 [History] Carbidopa-Levodopa 10-100 mg [Sinemet 10-100 mg] 1 tab PO TID 07/02/22 [History] Melatonin 5 mg PO HS PRN 07/02/22 [History] Albuterol Nebulized [Ventolin Nebulized] 2.5 mg INHALATION RT-QID 30 Days #120 ml 07/07/22 [Rx] Ipratropium Gideon 0.2 mg INHALATION RT-BID 07/11/22 [History] Metoprolol Succinate (ER) [Toprol XL] 25 mg PO QAM 08/26/22 [History] Midodrine [ProAmatine] 5 mg PO BID 08/26/22 [History] Follow up Appointment(s)/Referral(s): Felix Burgos MD [Primary Care Provider] - 1-2 Days Castillo Carrillo MD [STAFF PHYSICIAN] - 09/13/22 1:30 pm Activity/Diet/Wound Care/Special Instructions: No driving while taking OxyIR No lifting over 10 pounds Shower daily. No soaking or tub baths for 2 weeks Very light activity until you are reevaluated at your follow up appointment with your surgeon Ok to resume Eliquis tomorrow 08/31/22 Ok to resume Lasix tomorrow 08/31/22. Hold for SBP<110 Discharge Disposition: HOME SELF-CARE
[2022-08-30] MEDS ORDERED: KETOROLAC 15 MG/ML 1 ML VIAL IVP SCH (13:15)
[2022-08-30 13:24] VITALS: RESP 20
--- NOTE | 2022-08-30 15:32 | XR ---
EXAMINATION TYPE: XR chest 2V DATE OF EXAM: 08/30/2022 COMPARISON: 07/18/2022 HISTORY: 62 year-old male shortness of breath, wheezing TECHNIQUE: PA and lateral views FINDINGS: Left anterior chest wall ICD generator with right ventricular lead. Heart borderline in size. Mild in terstitial prominence has a chronic appearance. No consolidation or pleural effusion. [facility] in the low er thoracic spine. IMPRESSION: Borderline heart size. Chronic appearing changes. Interstitial prominence may reflect bronchitis or a sthma. Otherwise, no acute process seen.
[2022-08-30 18:29] VITALS: BP 116/67; PULSE 62
== END 2022-08-30 18:27 | disposition home or self-care (01) ==
LOC: OR 07:18 → 4SSUR 09:59 → OR 08-30 18:27
PROVIDERS: ATTEND Surgery
DX: K21.00 Gastro-esophageal reflux disease with esophagitis, without bleeding (principal); G20 Parkinson's disease; Z98.890 Other specified postprocedural states
CPT/HCPCS: 94640 ×4; 94760 ×2; 80053; 71046; 43280; J1100; J2765 ×2; J2175; J0690 ×2; J2405; J1650; J1170 ×3; J1885; J1644

== ENCOUNTER 2022-09-06 19:12 | Observation (INO) | payer OTHER ==
[2022-09-06] MEDS ORDERED: ASPIRIN 81 MG PO STA (20:10)
--- NOTE | 2022-09-06 20:33 | XR ---
EXAMINATION TYPE: XR chest 1V portable DATE OF EXAM: 09/06/2022 COMPARISON: 08/30/2022 INDICATION: TECHNIQUE: Single frontal view of the chest is obtained. FINDINGS: The heart size is normal. The pulmonary vasculature is normal. The lungs are clear. IMPRESSION: 1. No acute pulmonary process.
[2022-09-06] MEDS ORDERED: MORPHINE SULFATE 4 MG/ML SYRINGE IV STA (20:48)
[2022-09-06 21:18] LABS: Basophils % (A) 0 %; Eosinophils # (A) 0.2 k/uL (0-0.7); Eosinophils % (A) 2 %; HCT 36.9 % (39.0-53.0); HGB 12.3 gm/dL (13.0-17.5); Lymphocytes % (A) 27 %; MCH 30.8 pg (25.0-35.0); MCHC 33.4 g/dL (31.0-37.0); MCV 92.2 fL (80.0-100.0); Mean Platelet Volume 8.5; Monocytes # (A) 0.6 k/uL (0-1.0); Monocytes % (A) 9 %; Neutrophils # (A) 4.5 k/uL (1.3-7.7); Neutrophils % (A) 60 %; Platelet Count 270 k/uL (150-450); RDW 13.5 % (11.5-15.5); WBC 7.4 k/uL (3.8-10.6)
[2022-09-06 21:36] LABS: Partial Thromboplastin Time 27.7 sec (22.0-30.0); Prothrombin Time 10.7 sec (9.0-12.0)
[2022-09-06 21:37] LABS: ALT 29 U/L (4-49); AST 32 U/L (17-59); African American GFR (CKD) >90 (>60 ml/min/1.73 sqM); Albumin 4.3 g/dL (3.5-5.0); Alkaline Phosphatase 60 U/L (38-126); Anion Gap 10 mmol/L; Blood Urea Nitrogen 9 mg/dL (9-20); Calcium 9.2 mg/dL (8.4-10.2); Carbon Dioxide 25 mmol/L (22-30); Chloride 104 mmol/L (98-107); Glucose 85 mg/dL (74-99); Magnesium 1.8 mg/dL (1.6-2.3); Non-African American GFR(CKD) 88 (>60 ml/min/1.73 sqM); Potassium 4.3 mmol/L (3.5-5.1); Sodium 139 mmol/L (137-145); Total Bilirubin 0.7 mg/dL (0.2-1.3); Total Protein 7.2 g/dL (6.3-8.2)
[2022-09-06] MEDS ORDERED: HYDROmorphone 0.5 MG/0.5 ML SYRINGE IVP STA (23:23)
[2022-09-06] MEDS ORDERED: NITROGLYCERIN SL TABS 0.4 MG TAB SUBLINGUAL PRN (23:52)
[2022-09-06] MEDS ORDERED: IBUPROFEN 600 MG TAB PO PRN (23:53)
[2022-09-06] MEDS ORDERED: ALBUTEROL NEBULIZED 2.5 MG/3 ML INHALATION PRN (23:53)
[2022-09-07] MEDS: ACETAMINOPHEN TAB 325 MG TAB PO SCH ×4 (00:15→17:43)
--- NOTE | 2022-09-07 05:15 | ED ---
Chest Pain HPI - General Chief Complaint: Chest Pain Stated Complaint: DEFIBRILATOR WENT OFF Time Seen by Provider: 09/06/22 20:10 Source: patient Mode of arrival: EMS Limitations: no limitations - History of Present Illness Initial Comments: This patient is 62-year-old man who presents with complaint that approximately 4 hours ago he had discharge of his AICD. The patient states that he was at rest at the time. He did not have any preceding symptoms. There was no chest pain, dyspnea, diaphoresis or palpitations. No syncope. MD Complaint: chest pain -: hour(s) Onset: during rest Pain Location: substernal Pain Radiation: none Severity: severe Quality: aching Consistency: constant Improves With: nothing Worsens With: nothing Treatments Prior to Arrival: none - Related Data Home Medications Medication Instructions Recorded Confirmed Albuterol Sulfate [Ventolin HFA] 2 puff INHALATION RT-Q6H PRN 04/28/22 09/16/22 Atorvastatin [Lipitor] 80 mg PO DAILY 04/28/22 09/16/22 Furosemide [Lasix] 20 mg PO DAILY 04/28/22 09/16/22 Nitroglycerin Sl Tabs [Nitrostat] 0.4 mg SL Q5M PRN 04/28/22 09/16/22 Sacubitril/Valsartan [Entresto 24 1 tab PO BID 05/25/22 09/16/22 mg-26 mg Tablet] Fluticasone/Umeclidin/Vilanter 1 puff INHALATION RT-DAILY 06/28/22 09/16/22 [Trelegy Ellipta 200-62.5-25] ALPRAZolam [Xanax] 0.25 mg PO TID PRN 07/02/22 09/16/22 Budesonide/Formoterol Fumarate 2 puff INHALATION RT-BID 07/02/22 09/16/22 [Symbicort 160-4.5 Mcg Inhaler] Carbidopa-Levodopa 10-100 mg 1 tab PO TID 07/02/22 09/16/22 [Sinemet 10-100 mg] Melatonin 5 mg PO HS PRN 07/02/22 09/16/22 Ipratropium Roper 0.2 mg INHALATION RT-BID 07/11/22 09/16/22 Acetaminophen Tab [Tylenol] 650 mg PO Q6H PRN 09/16/22 09/16/22 predniSONE [Deltasone] See Taper PO DIRECTED 09/16/22 09/16/22 Previous Rx's Medication Instructions Recorded Apixaban [Eliquis] 5 mg PO BID #30 tab 05/14/22 Cyanocobalamin [Vitamin B-12] 1,000 mcg PO DAILY tab 06/09/22 Famotidine [Pepcid] 20 mg PO BID 90 Days #180 tab 06/09/22 Levothyroxine Sodium [Synthroid] 50 mcg PO DAILY@0630 90 Days #90 06/09/22 tab Albuterol Nebulized [Ventolin 2.5 mg INHALATION RT-QID 30 Days 07/07/22 Nebulized] #120 ml Sotalol [Betapace] 80 mg PO BID #60 tab 09/12/22 Midodrine [ProAmatine] 10 mg PO AC-TID 30 Days #90 tab 09/13/22 Allergies Allergy/AdvReac Type Severity Reaction Status Date / Time No Known Allergies Allergy Verified 09/16/22 19:18 Review of Systems ROS Statement: Those systems with pertinent positive or pertinent negative responses have been documented in the HPI. ROS Other: All systems not noted in ROS Statement are negative. Constitutional: Denies: fever, chills, weakness Eyes: Denies: vision change Respiratory: Denies: cough, dyspnea, wheezes Cardiovascular: Reports: as per HPI, chest pain. 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 based on Q waves - EKG Results: EKG: interpreted by ERMD, sinus rhythm (Rate 82 bpm) - Blocks, [place], Hypertrophy, ST Abn: AV and intraventricular conduction: right bundle branch block (fixed/int ermittent, complete/incomplete) Past Medical History Past Medical History: Atrial Fibrillation, Heart Failure, COPD, Hyperlipidemia, Hypertension, Myocardial Infarction (MS), Osteoarthritis (OA), Sleep Apnea/CPAP/BIPAP, Syncope Additional Past Medical History / Comment(s): see Dr Hester's H&P,Parkinson's,no mobility devices,uses O2 @ 2 L NC at hs and uses prn during the day(insurance is not covering home oxygen-pt purchased an oxygen machine that makes it's own oxygen off of [employer]),will be starting cpap in 3 weeks, DVT L subclavian/surgically removed, nonischemic cardiomyopathy/AICD/pacer in place, past ETOH - no use since 04/2020 Last Myocardial Infarction Date:: 02/25/20 History of Any Multi-Drug Resistant Organisms: None Reported Past Surgical History: AICD, Appendectomy, Cardiac Ablation, Cholecystectomy, Heart Catheterization, Pacemaker Additional Past Surgical History / Comment(s): 04/27/21 lap cholecystectomy, L upper extremity venogram/thrombolysis/thrombectomy Past Anesthesia/Blood Transfusion Reactions: No Reported Reaction Type of Cardiac Device: Permanent Pacemaker, AICD Device Placement Date:: 05/01/20 Past Psychological History: Anxiety Smoking Status: Former smoker Past Alcohol Use History: None Reported Past Drug Use History: None Reported - Past Family History Mother Family Medical History: Cancer Additional Family Medical History / Comment(s): Cancer in jaw. Father Family Medical History: COPD General Exam Limitations: no limitations General appearance: alert, in no apparent distress Head exam: Present: atraumatic, normocephalic Eye exam: Present: normal appearance. Absent: scleral icterus, conjunctival injection ENT exam: Present: normal oropharynx Neck exam: Present: normal inspection Respiratory exam: Present: normal lung sounds bilaterally. Absent: respiratory distress, wheezes, rales, rhonchi, stridor, chest wall tenderness, accessory muscle use Cardiovascular Exam: Present: regular rate, normal rhythm, normal heart sounds. Absent: systolic murmur, diastolic murmur, rubs, gallop GI/Abdominal exam: Present: soft. Absent: distended, tenderness, guarding, rebound, rigid, mass Extremities exam: Present: normal inspection, normal capillary refill. Absent: pedal edema, calf tenderness Back exam: Present: normal inspection. Absent: CVA tenderness (R), CVA tenderness (L) Neurological exam: Present: alert Skin exam: Present: warm, dry, intact, normal color. Absent: rash Course Vital Signs 09/06/22 09/06/22 09/06/22 19:37 20:00 21:00 Temperature 98.2 F Pulse Rate 93 86 75 Respiratory 16 17 11 L Rate Blood Pressure 121/92 121/89 121/94 O2 Sat by Pulse 93 L Oximetry 09/06/22 09/06/22 09/07/22 22:00 23:00 00:00 Temperature Pulse Rate 64 59 L 64 Respiratory 16 17 13 Rate Blood Pressure 139/91 122/90 127/90 O2 Sat by Pulse 96 97 96 Oximetry 09/07/22 09/07/22 09/07/22 01:00 02:00 03:00 Temperature Pulse Rate 60 58 L 60 Respiratory 14 15 12 Rate Blood Pressure 118/87 116/83 119/80 O2 Sat by Pulse 96 96 96 Oximetry Chest Pain MDM - MDM This patient is a 62-year-old man presenting with complaint that he believes that his defibrillator had fired. The patient's device was interrogated but there was no event report that was generated. In light of this patient will be admitted overnight to have cardiology consultation. Case discussed with his primary physician. The patient had chest x-ray which I interpreted as showing no acute infiltrate, pneumothorax, congestive heart failure Was pt. sent in by a medical professional or institution (, PA, IMAGING TECHNICIAN, urgent care, hospital, or retirement...) When possible be specific @ -[No] Did you speak to anyone other than the patient for history (EMS, parent, family, police, friend...)? What history was obtained from this source @ -[No] Did you review nursing and triage notes (agree or disagree)? Why? @ -[I reviewed and agree with nursing and triage notes] Were old charts reviewed (outside hosp., previous admission, EMS record, old EKG, old radiological studies, urgent care reports/EKG's, retirement records)? Report findings @ -[old charts were reviewed] Differential Diagnosis (chest pain, altered mental status, abdominal pain women, abdominal pain men, vaginal bleeding, weakness, fever, dyspnea, syncope, headache, dizziness, GI bleed, back pain, seizure, CVA, palpatations, mental health, musculoskeletal)? @ -[Differential diagnosis for the defibrillator discharge includes underlying arrhythmia, electrolyte problem leading to arrhythmia, acute MS, defibrillator malfunction, among other conditions EKG interpreted by me (3pts min.). @ -[As above] X-rays interpreted by me (1pt min.). @ -[As above CT interpreted by me (1pt min.). @ -[None done] U/S interpreted by me (1pt. min.). @ -[None done] What testing was considered but not performed or refused? (CT, X-rays, U/S, labs)? Why? @ -[None] What meds were considered but not given or refused? Why? @ -[None] Did you discuss the management of the patient with other professionals (professionals i.e. , PA, IMAGING TECHNICIAN, lab, RT, psych nurse, psychotherapist social worker, corporate pilot, teacher, chief strategy officer, director case management)? Give summary @ -[Case discussed with admitting physician Was smoking cessation discussed for >3mins.? @ -[No] Was critical care preformed (if so, how long)? @ -[No] Were there social determinants of health that impacted care today? How? (Homelessness, low income, unemployed, alcoholism, drug addiction, transportation, low edu. Level, literacy, decrease access to med. care, prison, r ehab)? @ -[No] Was there de-escalation of care discussed even if they declined (Discuss DNR or withdrawal of care, Hospice)? DNR status @ -[No] What co-morbidities impacted this encounter? (DM, HTN, Smoking, COPD, CAD, Cancer, CVA, ARF, Chemo, Hep., AIDS, mental health diagnosis, sleep apnea, morbid obesity)? @ -[Underlying cardiac disease Was patient admitted / discharged? Hospital course, mention meds given and route, prescriptions, significant lab abnormalities, going to OR and other pertinent info. @ -[Admitted to have cardiology consultation Undiagnosed new problem with uncertain prognosis? @ -[No] Drug Therapy requiring intensive monitoring for toxicity (Heparin, Nitro, Insulin, Cardizem)? @ -[No] Were any procedures done? @ -[No] Diagnosis/symptom? @ -[AICD discharge Acute, or Chronic, or Acute on Chronic? @ -[Acute Uncomplicated (without systemic symptoms) or Complicated (systemic symptoms)? @ -[Uncomplicated Side effects of treatment? @ -[No] Exacerbation, Progression, or Severe Exacerbation? @ -[No] Poses a threat to life or bodily function? How? (Chest pain, [place], MS, pneumonia, PE, COPD, DKA, ARF, appy, cholecystitis, CVA, Diverticulitis, Homicidal, Suicidal, threat to staff... and all critical care pts) @ -[No] Disposition Clinical Impression: AICD discharge Disposition: ADMITTED IP TO THIS HOSP Condition: Fair Is patient prescribed a controlled substance at d/c from ED?: No
[2022-09-07] MEDS: LEVOTHYROXINE 50 MCG TAB PO SCH (06:15)
[2022-09-07] MEDS ORDERED: SYMBICORT 160-4.5 MCG INHALER INHALATION SCH (08:00)
[2022-09-07] MEDS ORDERED: IPRATROPIUM 0.5 MG/2.5 ML NEBU INHALATION SCH (08:00)
[2022-09-07] MEDS: IPRATROPIUM 0.5 MG/2.5 ML NEBU INHALATION SCH ×2 (08:35→11:57)
[2022-09-07] MEDS: SYMBICORT 160-4.5 MCG INHALER INHALATION SCH ×2 (08:43→19:31)
[2022-09-07] MEDS ORDERED: NON FORMULARY DRUG (Fluticasone/Umeclidin/Vilanter [Trelegy Ellipta 200-62.5-25] 1 EACH Bl INHALATION SCH (09:00)
[2022-09-07 09:07] LABS: Chol/HDL Ratio 2.65 Ratio; LDL Cholesterol,Calculated 47.8 mg/dL (0.0-131.0); VLDL Calculation 15.12 mg/dL (5.00-40.00)
[2022-09-07] MEDS: CYANOCOBALAMIN 500 MCG TAB PO SCH (10:00)
[2022-09-07] MEDS: ATORVASTATIN 80 MG TAB PO SCH (10:00)
[2022-09-07] MEDS: ALPRAZolam 0.25 MG TAB PO PRN (10:01)
[2022-09-07] MEDS: ASPIRIN 325 MG TAB PO SCH (10:01)
[2022-09-07] MEDS: APIXABAN 5 MG TAB PO SCH ×2 (10:01→21:52)
[2022-09-07] MEDS: FUROSEMIDE 20 MG TAB PO SCH (10:02)
[2022-09-07] MEDS: FAMOTIDINE 20 MG TAB PO SCH ×2 (10:02→21:52)
[2022-09-07] MEDS: MIDODRINE 5 MG TAB PO SCH ×2 (10:04→19:42)
[2022-09-07] MEDS: METOPROLOL SUCCINATE (ER) 25 MG TAB.ER.24H PO SCH (10:07)
[2022-09-07] MEDS: SACUBITRIL/VALSARTAN 24 MG-26 MG TABLET PO SCH ×2 (10:32→21:52)
[2022-09-07] MEDS: CARBIDOPA-LEVODOPA 10-100 MG 1 EACH TAB PO SCH ×3 (10:32→21:52)
[2022-09-07] MEDS: AMIODARONE 200 MG TAB PO SCH ×2 (12:05→21:52)
--- NOTE | 2022-09-07 14:15 | HP ---
HISTORY AND PHYSICAL HISTORY OF PRESENT ILLNESS: This is a 62-year-old white male who came to the hospital for possible AICD going off at home. States he was at rest at that time. Denied any preceding symptoms. He has been breathing better since last admission. He has not had any atrial fibrillation. He is status post AFib with cardiac ablation. HOME MEDICINES: 1. Ventolin HFA 2 puffs q.6h p.r.n. 2. Lipitor 80 mg daily. 3. Lasix 20 mg daily. 4. Crestor 07/28/25 b.i.d. 5. Allergy inhaler 200 one puff daily. 6. Alprazolam 0.25 t.i.d. 7. Sinemet 1 tab t.i.d. 8. Melatonin 5 at night. 9. Metoprolol ER 25 daily. 10.ProAmatine 5 mg b.i.d. REVIEW OF SYSTEMS: A 14-point review of systems otherwise negative. PAST MEDICAL HISTORY: Reviewed. SOCIAL HISTORY: Reviewed. PHYSICAL EXAMINATION: VITAL SIGNS: Blood pressure 120s over 90s, temp 98.2, pulse is 75 to 93, O2 93%, and he wears 2 L oxygen at home. CARDIOVASCULAR: S1, S2. LUNGS: Wheezes x4. HEMATOLOGY: Negative for Homans. PSYCH: Fair mood and affect. NEUROLOGIC: Alert and orient x3. OPHTHALMOLOGIC: Pupils equal, round, reactive. ASSESSMENT: Possible defibrillator firing, COPD, atrial fibrillation, atypical chest pain, COPD, pulmonary hypertension. Wait for cardiac clearance for discharge. Continue to treat with home medicines. Prognosis guarded. MMODL / IJN: [id number] /
[2022-09-07] MEDS: IPRATROPIUM-ALBUTEROL 3 ML NEB INHALATION SCH ×2 (15:50→19:30)
[2022-09-07] MEDS ORDERED: ALBUTEROL NEBULIZED 2.5 MG/3 ML INHALATION SCH (16:00)
--- NOTE | 2022-09-07 17:00 | CA ---
Transthoracic Echo Report Name: Phil Yap Age: 62 Gender: M : 1960 Exam Date: 09/07/2022 13:34 Exam Location: [place] [facility] Ht (in): 67 Wt (lb): 170 Ordering Physician: Bruce Waggoner MD ([id number]) Attending/Referring Phys: Edilson LEARY [employer] Admissions Counselor Jeremie Romero Procedure CPT: Indications: Chest Pain Cardiac Hx: Limited study. Technical Quality: Fair Contrast 1: Total Dose (mL): Contrast 2: Total Dose (mL): MEASUREMENTS (Male / Female) Normal Values 2D ECHO LV Diastolic Diameter PLAX 5.2 cm 4.2 - 5.9 / 3.9 - 5.3 cm LV Systolic Diameter PLAX 3.3 cm IVS Diastolic Thickness 1.2 cm 0.6 - 1.0 / 0.6 - 0.9 cm LVPW Diastolic Thickness 1.1 cm 0.6 - 1.0 / 0.6 - 0.9 cm LV Relative Wall Thickness 0.4 RV Internal Dim ED PLAX 3.5 cm LV Diastolic Volume MOD BP 55.7 cm??? 67 - 155 / 56 - 104 cm??? LV Systolic Volume MOD BP 1.1 cm??? 22 - 58 / 19 - 49 cm??? LV Ejection Fraction MOD BP 98.0 % >= 55 % LV Diastolic Volume MOD 4C 62.5 cm??? LV Systolic Volume MOD 4C 11.6 cm??? LV Ejection Fraction MOD 4C 81.5 % LV Diastolic Length 4C 7.0 cm LV Systolic Length 4C 3.2 cm LV Diastolic Volume MOD 2C 49.7 cm??? LV Systolic Volume MOD 2C 25.5 cm??? LV Ejection Fraction MOD 2C 48.8 % LV Diastolic Length 2C 6.8 cm LV Systolic Length 2C 5.9 cm FINDINGS Left Ventricle Left ventricular ejection fraction is estimated at 40-45 %. Right Ventricle Right ventricular dilatation. Right Atrium Right atrial dilatation. Left Atrium Mitral Valve Aortic Valve Tricuspid Valve Pulmonic Valve Pericardium Aorta CONCLUSIONS Patient has an ejection fraction of 40-45% Previewed by: Dr. Bruce Waggoner MD (Electronically Signed) Final Date: 07 Sep 2022 16:59
--- NOTE | 2022-09-07 21:56 | CONS ---
CONSULTATION HISTORY OF PRESENT ILLNESS: Phil is a 62-year-old gentleman with history of dilated cardiomyopathy, status post ICD; hypertension; alcohol abuse; history of left axillary vein thrombosis; and atrial flutter ablation, presented to hospital having had a defibrillator discharge. He had a sudden onset of discomfort over the left precordial area and felt that the defibrillator has shocked him, came to the ER where his defibrillator had been evaluated, and it appears like he had a run of ventricular tachycardia with ICD discharge. He has 3 sets of troponins that are negative and EKG that does not reveal acute ischemic changes. Potassium is normal at 4.3, and I am going to check the magnesium. His AICD discharge could be due to ventricular tachycardia or could be related to the atrial tachyarrhythmia that he had recently. I am going to start him on amiodarone and have EP evaluate the patient if necessary. PAST MEDICAL HISTORY: Significant for dilated cardiomyopathy, chronic systolic heart failure, dyslipidemia, and atrial flutter, status post ablation. CURRENT MEDICATIONS: Include: 1. Motrin. 2. Tylenol. 3. Xanax. 4. Entresto. 5. Toprol. 6. Synthroid. 7. Lasix. 8. Pepcid. 9. Symbicort. 10.Sinemet. 11.Lipitor. 12.Eliquis. ALLERGIES: There are no known drug allergies. FAMILY HISTORY: Negative for premature coronary artery disease. SOCIAL HISTORY: Negative for smoking, EtOH abuse, or drug abuse. REVIEW OF SYSTEMS: 14 out of 14 review of systems has been performed. Pertinents are as documented. PHYSICAL EXAMINATION: GENERAL: Comfortable at rest. VITAL SIGNS: Stable. NECK: There is no jugular venous distention. Carotid upstroke is normal. There is no bruit. CHEST: Reveals good air entry bilaterally. HEART: Reveals first and second heart sounds. No gallop. No gallop. ABDOMEN: Soft and nontender. EXTREMITIES: Did not reveal any edema. Peripheral pulses are felt. LABORATORY DATA: Show hemoglobin of 12.3, platelet count is 270. Potassium is 4.3, creatinine is 0.9. Troponins are negative. LDL is 47.8. ASSESSMENT: 1. Ventricular tachycardia, status post automatic implantable cardioverter- defibrillator discharge. 2. Nonischemic cardiomyopathy. 3. Chronic systolic heart failure. PLAN: I will start the patient on amiodarone. MMODL / IJN: [id number] /
[2022-09-08] MEDS: ACETAMINOPHEN TAB 325 MG TAB PO SCH ×4 (00:41→17:32)
[2022-09-08] MEDS: MIDODRINE 5 MG TAB PO SCH ×2 (06:35→17:32)
[2022-09-08] MEDS: LEVOTHYROXINE 50 MCG TAB PO SCH (06:35)
[2022-09-08] MEDS: SACUBITRIL/VALSARTAN 24 MG-26 MG TABLET PO SCH ×2 (08:47→22:28)
[2022-09-08] MEDS: APIXABAN 5 MG TAB PO SCH ×2 (08:47→22:29)
[2022-09-08] MEDS: FAMOTIDINE 20 MG TAB PO SCH ×2 (08:48→22:29)
[2022-09-08] MEDS: ASPIRIN 325 MG TAB PO SCH (08:48)
[2022-09-08] MEDS: AMIODARONE 200 MG TAB PO SCH (08:48)
[2022-09-08] MEDS: METOPROLOL SUCCINATE (ER) 25 MG TAB.ER.24H PO SCH (08:48)
[2022-09-08] MEDS: CARBIDOPA-LEVODOPA 10-100 MG 1 EACH TAB PO SCH ×3 (08:48→22:29)
[2022-09-08] MEDS: CYANOCOBALAMIN 500 MCG TAB PO SCH (08:48)
[2022-09-08] MEDS: IPRATROPIUM-ALBUTEROL 3 ML NEB INHALATION SCH ×4 (08:48→19:22)
[2022-09-08] MEDS: ATORVASTATIN 80 MG TAB PO SCH (08:48)
[2022-09-08] MEDS: FUROSEMIDE 20 MG TAB PO SCH (08:48)
[2022-09-08] MEDS: SYMBICORT 160-4.5 MCG INHALER INHALATION SCH ×2 (08:49→19:22)
--- NOTE | 2022-09-08 09:04 | PN ---
PROGRESS NOTE SUBJECTIVE: Phil is a 62-year-old gentleman, who is admitted to hospital following AICD discharge. He is having some discomfort at the AICD site, but otherwise doing well. Had an echocardiogram I performed. He has an ejection fraction of 40% to 45%. He is otherwise doing well and is free of significant symptoms. Three sets of cardiac enzymes are negative. Has not had any further episodes of ventricular tachycardia. OBJECTIVE: GENERAL: Comfortable at rest. VITAL SIGNS: Stable. NECK: There is no jugular venous distention. CHEST: Reveals good air entry bilaterally. HEART: Reveals first and second heart sounds. No gallop. No murmur. ABDOMEN: Soft, nontender. EXTREMITIES: Did not reveal any edema. Peripheral pulses are felt. ASSESSMENT: Wide-complex tachycardia, status post AICD discharge, probably related to ventricular tachycardia. The patient had recent ablation of the atrial tachycardia/atrial flutter. PLAN: I started him on amiodarone. He is doing well. I am going to have Dr. Hester evaluate him today and after that, he can be discharged home. MMODL / IJN: [id number] /
--- NOTE | 2022-09-08 17:05 | P.EPPROC ---
- EP Procedure Note Electrophysiology Procedure Note: This is Dr. Hester dictating a consult on this patient The patient was interviewed and examined IMPRESSION / ASSESSMENT: ICD shocks with documented tachycardia without a template match, consistent with ventricular tachycardia The intracardiac electrograms during tachycardia are different than in sinus rhythm Tachycardia cycle length 330-350 ms Consistent with ventricular tachycardia History of nonischemic cardio myopathy Improvement in LV systolic function on ENTRESTO from 30% to 40-45% Underlying right bundle branch block pattern on twelve-lead EKG History of atrial flutter ablation History of atrial tachycardia ablation His atrial arrhythmias had a slow ventricular rate PLAN: Stop amiodarone, stop aspirin, continue ELIQUIS Start sotalol 80 mg twice daily, stop metoprolol temporarily Oral magnesium I will schedule him for a diagnostic EP study and radiofrequency ablation/ will have [facility] personnel during the procedure to assess template match of induced arrhythmias He will hold sotalol 3 days prior to the procedure, ELIQUIS and be held on the morning of the procedure only A ventricular stimulation protocol looking for bundle branch reentry and other ventricular arrhythmias as well as atrial arrhythmias that would show a match with the device intracardiac electrograms Ablation be planned accordingly Avoid amiodarone since it will render him noninducible at EP study HPI Patient was resting comfortably any had sudden ICD shock He may have been a little dizzy for the period before that but he did not experience any syncope at this time No chest discomfort no undue shortness of breath His follow-up 2-D echo on entresto he showed improvement in LV systolic function within 2 months of initiation of ENTRESTO ROS: No fever chills or rigors, no cough, phlegm or expectoration, no nausea, vomiting or diarrhea, no hematuria, dysuria, no musculoskeletal complaints, no strokes or seizures, no skin lesions. EXAMINATION: Pulse rate in the 60s, afebrile Blood pressure 107/68 mmHg REVIEW OF LABS, ECG & MEDICAL DATA Normal white count Hemoglobin 12.3 to lie normal electrolytes Normal TSH Normal liver function Normal cardiac enzymes
[2022-09-08] MEDS: MAGNESIUM OXIDE 400 MG TAB PO SCH (17:32)
[2022-09-08] MEDS: MELATONIN 5 MG TABLET PO PRN (22:28)
[2022-09-08] MEDS: SOTALOL 80 MG TAB PO SCH (22:29)
[2022-09-09] MEDS: ACETAMINOPHEN TAB 325 MG TAB PO SCH ×4 (02:58→17:49)
[2022-09-09] MEDS: MIDODRINE 5 MG TAB PO SCH ×2 (06:36→17:49)
[2022-09-09] MEDS: LEVOTHYROXINE 50 MCG TAB PO SCH (06:36)
--- NOTE | 2022-09-09 07:52 | P.DS ---
Providers Date of admission: 09/06/22 23:53 Attending physician: Felix Burgos Consults: 09/06/22 23:52 Consult Physician Routine Consulting Provider: Blanco Sterling Consult Reason/Comments: Defibrillator discharge Do you want consulting provider notified?: Yes Primary care physician: [facility] Course: Discussed with patient Patient scheduled for an EP study and VT ablation within 2 weeks Instructions for the ablation Hold ELIQUIS only that morning Hold ENTRESTO only that morning Hold sotalol for 3 days prior to the procedure Continue all other medications He is currently on sotalol in place of metoprolol as well as on magnesium oxide Patient Condition at Discharge: Fair Plan - Discharge Summary Discharge Rx Participant: Yes New Discharge Prescriptions: No Action Furosemide [Lasix] 20 mg PO DAILY Atorvastatin [Lipitor] 80 mg PO DAILY Famotidine [Pepcid] 20 mg PO BID 90 Days #180 tab Levothyroxine Sodium [Synthroid] 50 mcg PO DAILY@0630 90 Days #90 tab Cyanocobalamin [Vitamin B-12] 1,000 mcg PO DAILY tab Fluticasone/Umeclidin/Vilanter [Trelegy Ellipta 200-62.5-25] 1 puff INHALATION RT-DAILY Melatonin 5 mg PO HS PRN PRN Reason: Insomnia Ipratropium Corning 0.2 mg INHALATION RT-BID Metoprolol Succinate (ER) [Toprol XL] 25 mg PO DAILY Midodrine [ProAmatine] 5 mg PO BID Ibuprofen [Motrin] 600 mg PO Q6HR PRN #40 tab PRN Reason: Pain oxyCODONE HCL [OxyIR] 5 mg PO Q6H PRN 3 Days #10 tab PRN Reason: Pain Acetaminophen Tab [Tylenol] 650 mg PO Q6H #30 tab Albuterol Sulfate [Ventolin HFA] 2 puff INHALATION RT-Q6H PRN PRN Reason: Shortness Of Breath Nitroglycerin Sl Tabs [Nitrostat] 0.4 mg SL Q5M PRN PRN Reason: Chest Pain Apixaban [Eliquis] 5 mg PO BID #30 tab Sacubitril/Valsartan [Entresto 24 mg-26 mg Tablet] 1 tab PO BID Carbidopa-Levodopa 10-100 mg [Sinemet 10-100 mg] 1 tab PO TID Budesonide/Formoterol Fumarate [Symbicort 160-4.5 Mcg Inhaler] 2 puff INHALATION RT-BID ALPRAZolam [Xanax] 0.25 mg PO TID PRN PRN Reason: Anxiety Albuterol Nebulized [Ventolin Nebulized] 2.5 mg INHALATION RT-QID 30 Days #120 ml Discharge Medication List Albuterol Sulfate [Ventolin HFA] 2 puff INHALATION RT-Q6H PRN 04/28/22 [History] Atorvastatin [Lipitor] 80 mg PO DAILY 04/28/22 [History] Furosemide [Lasix] 20 mg PO DAILY 04/28/22 [History] Nitroglycerin Sl Tabs [Nitrostat] 0.4 mg SL Q5M PRN 04/28/22 [History] Apixaban [Eliquis] 5 mg PO BID #30 tab 05/14/22 [Rx] Sacubitril/Valsartan [Entresto 24 mg-26 mg Tablet] 1 tab PO BID 05/25/22 [History] Cyanocobalamin [Vitamin B-12] 1,000 mcg PO DAILY tab 06/09/22 [Rx] Famotidine [Pepcid] 20 mg PO BID 90 Days #180 tab 06/09/22 [Rx] Levothyroxine Sodium [Synthroid] 50 mcg PO DAILY@0630 90 Days #90 tab 06/09/22 [Rx] Fluticasone/Umeclidin/Vilanter [Trelegy Ellipta 200-62.5-25] 1 puff INHALATION RT-DAILY 06/28/22 [History] ALPRAZolam [Xanax] 0.25 mg PO TID PRN 07/02/22 [History] Budesonide/Formoterol Fumarate [Symbicort 160-4.5 Mcg Inhaler] 2 puff INHALATION RT-BID 07/02/22 [History] Carbidopa-Levodopa 10-100 mg [Sinemet 10-100 mg] 1 tab PO TID 07/02/22 [History] Melatonin 5 mg PO HS PRN 07/02/22 [History] Albuterol Nebulized [Ventolin Nebulized] 2.5 mg INHALATION RT-QID 30 Days #120 ml 07/07/22 [Rx] Ipratropium Corning 0.2 mg INHALATION RT-BID 07/11/22 [History] Metoprolol Succinate (ER) [Toprol XL] 25 mg PO DAILY 08/26/22 [History] Midodrine [ProAmatine] 5 mg PO BID 08/26/22 [History] Acetaminophen Tab [Tylenol] 650 mg PO Q6H #30 tab 08/30/22 [Rx] Ibuprofen [Motrin] 600 mg PO Q6HR PRN #40 tab 08/30/22 [Rx] oxyCODONE HCL [OxyIR] 5 mg PO Q6H PRN 3 Days #10 tab 08/30/22 [Rx] Follow up Appointment(s)/Referral(s): Felix Burgos MD [Primary Care Provider] - 1 Week
[2022-09-09] MEDS: CYANOCOBALAMIN 500 MCG TAB PO SCH (08:55)
[2022-09-09] MEDS: CARBIDOPA-LEVODOPA 10-100 MG 1 EACH TAB PO SCH ×3 (08:55→21:17)
[2022-09-09] MEDS: ATORVASTATIN 80 MG TAB PO SCH (08:55)
[2022-09-09] MEDS: APIXABAN 5 MG TAB PO SCH ×2 (08:55→21:14)
[2022-09-09] MEDS: MAGNESIUM OXIDE 400 MG TAB PO SCH (08:55)
[2022-09-09] MEDS: FAMOTIDINE 20 MG TAB PO SCH ×2 (08:55→21:14)
[2022-09-09] MEDS: FUROSEMIDE 20 MG TAB PO SCH (08:59)
[2022-09-09] MEDS: IPRATROPIUM-ALBUTEROL 3 ML NEB INHALATION SCH ×4 (09:11→20:33)
[2022-09-09] MEDS: SYMBICORT 160-4.5 MCG INHALER INHALATION SCH ×2 (09:11→20:33)
[2022-09-09] MEDS: SOTALOL 80 MG TAB PO SCH ×2 (09:27→23:11)
--- NOTE | 2022-09-09 09:43 | CONS ---
CONSULTATION HISTORY OF PRESENT ILLNESS: Phil is a 62-year-old gentleman who is admitted to hospital with ventricular tachycardia with AICD discharge. I started him on amiodarone. He was seen by Dr. Hester yesterday who stopped amiodarone and started him on sotalol and the plan at this stage is to discharge him home if he remains stable until this evening with procedure scheduled later for this month. The patient this morning is free of symptoms. PHYSICAL EXAMINATION: VITAL SIGNS: Heart rate is 50 beats per minute, blood pressure is 100/62, respiratory rate is 18, and O2 saturation is 96% on 2 L. NECK: There is no jugular venous distention. CHEST: Reveals good air entry bilaterally. HEART: Reveals first and second heart sounds. No gallop. ABDOMEN: Soft. EXTREMITIES: Did not reveal any edema. Peripheral pulses are felt. LABORATORY DATA: Labs showed potassium of 4.3, creatinine of 0.9, LDL cholesterol is 47. Hemoglobin is 12.3. ASSESSMENT: 1. Ventricular tachycardia, status post AICD discharge plan. 2. Chronic systolic heart failure. 3. Nonischemic cardiomyopathy. PLAN: Patient is on sotalol, possible DC home later this evening. Follow up with Dr. Sriram Thomas in a week's time. MMODL / IJN: [id number] /
[2022-09-09] MEDS: SACUBITRIL/VALSARTAN 24 MG-26 MG TABLET PO SCH ×2 (10:14→21:18)
[2022-09-09] MEDS: ALPRAZolam 0.25 MG TAB PO PRN (14:16)
[2022-09-09] MEDS: MELATONIN 5 MG TABLET PO PRN (21:21)
[2022-09-10] MEDS: ACETAMINOPHEN TAB 325 MG TAB PO SCH ×5 (00:49→23:11)
[2022-09-10] MEDS: LEVOTHYROXINE 50 MCG TAB PO SCH (06:15)
[2022-09-10] MEDS: IPRATROPIUM-ALBUTEROL 3 ML NEB INHALATION SCH ×4 (07:57→20:12)
[2022-09-10] MEDS: SYMBICORT 160-4.5 MCG INHALER INHALATION SCH ×2 (07:57→20:11)
[2022-09-10] MEDS: ALPRAZolam 0.25 MG TAB PO PRN (08:32)
[2022-09-10] MEDS: ATORVASTATIN 80 MG TAB PO SCH (08:32)
[2022-09-10] MEDS: APIXABAN 5 MG TAB PO SCH ×2 (08:32→20:25)
[2022-09-10] MEDS: MIDODRINE 5 MG TAB PO SCH ×2 (08:32→16:21)
[2022-09-10] MEDS: MAGNESIUM OXIDE 400 MG TAB PO SCH (08:32)
[2022-09-10] MEDS: FAMOTIDINE 20 MG TAB PO SCH ×2 (08:32→20:25)
[2022-09-10] MEDS: CARBIDOPA-LEVODOPA 10-100 MG 1 EACH TAB PO SCH ×3 (08:32→20:25)
[2022-09-10] MEDS: SACUBITRIL/VALSARTAN 24 MG-26 MG TABLET PO SCH ×2 (08:32→20:25)
[2022-09-10] MEDS: CYANOCOBALAMIN 500 MCG TAB PO SCH (08:32)
[2022-09-10] MEDS: SOTALOL 80 MG TAB PO SCH ×2 (08:33→20:31)
[2022-09-10] MEDS: FUROSEMIDE 20 MG TAB PO SCH (08:34)
--- NOTE | 2022-09-10 12:30 | P.PN ---
Subjective Progress Note Date: 09/10/22 This is a pleasant 62-year-old gentleman with a past medical history nonischemic cardiomyopathy, status post ICD, hypertension, alcohol abuse, left axillary vein thrombosis and atrial flutter status post ablation. Presents to the hospital after having defibrillator discharge. Interrogation of device confirmed ventricular tachycardia. He was initially initiated on amiodarone. He was seen and evaluated by Dr. Hester who discontinued amiodarone and metoprolol and started the patient on sotalol with plans for VT ablation in the next couple weeks. The patient has had no further palpitations. There's been no further episodes of VT on telemetry. He complains of some dizziness. The pressure has been on the low side but stable. Heart rate has been stable. Breathing is stable and he has no complaints of orthopnea, PND or edema. He's had no chest pain. He's had no syncope. Objective - Vital Signs Vital signs: Vital Signs Temp 98.6 F 09/10/22 07:00 Pulse 70 09/10/22 08:10 Resp 17 09/10/22 07:00 BP 101/66 09/10/22 07:00 Pulse Ox 95 09/10/22 07:59 FiO2 Intake & Output 09/09/22 09/10/22 09/10/22 18:59 06:59 18:59 Intake Total 236 Balance 236 Intake: Oral 236 Other: Voiding Method Toilet Toilet # Voids 2 2 - Exam PHYSICAL EXAMINATION: HEENT: [Head is atraumatic, normocephalic. Pupils equal, round. Neck is supp le. There is no elevated jugular venous pressure.] HEART EXAMINATION: [Heart sounds regular, S1 and S2 normal. With a systolic murmur.] CHEST EXAMINATION:[ Lungs are clear to auscultation. No chest wall tenderness is noted on palpation or with deep breathing.] ABDOMEN: [ Soft, nontender. Bowel sounds are heard. No organomegaly noted]. EXTREMITIES:[ 2+ peripheral pulses with no evidence of peripheral edema and no calf tenderness noted]. NEUROLOGIC [patient is awake, alert and oriented x3.] . - Labs CBC & Chem 7: 09/06/22 20:36 09/06/22 20:36 Assessment and Plan Assessment: #1. Ventricular tachycardia, status post defibrillator discharge #2 nonischemic myopathy status post AICD #3 atrial flutter, status post ablation #4 hypertension Plan: From cardiology's perspective medications were reviewed and will continue the same. Increase patient's activity, ambulating the hallway. The patient's blood pressure remained stable he may be discharged home later today. He will follow- up in the office as an outpatient and be scheduled for VT ablation in the next couple of weeks. [employer] note has been reviewed, I agree with a documented findings and plan of care. Patient was seen and examined.
[2022-09-10] MEDS: MELATONIN 5 MG TABLET PO PRN (20:25)
--- NOTE | 2022-09-10 23:52 | PN ---
PROGRESS NOTE DATE OF SERVICE: 09/09/2022 SUBJECTIVE: A 62-year-old white male. The patient does not feel good. He is lightheaded, dizzy, near syncope. He states he has been given too many cardiac medicines. He is breathing okay, but he gets dizzy, lightheaded when he is standing want to stay overnight. OBJECTIVE: CARDIOVASCULAR: S1, S2. PSYCH: Fair mood and affect. NEUROLOGIC: Cranial nerves intact. GI: Soft. HEMATOLOGY: Negative for Homans. Borderline orthostatic changes. PLAN: Continue current treatments. Cardiac ablation possibly will have to be done again. Check for orthostatic hypotension. Prognosis guarded. MMODL / IJN: [id number] /
--- NOTE | 2022-09-11 00:13 | PN ---
PROGRESS NOTE SUBJECTIVE: Remains on DuoNeb for COPD, Ventolin inhalers; Eliquis for atrial fibrillation, RVR; Lipitor for dyslipidemia; Symbicort inhaler for COPD; Sinemet for Parkinson's; vitamin B12 for vitamin B12 deficiencies, Lasix 20 mg daily, Pepcid 20 b.i.d., Synthroid 50 mcg daily, Mag oxide 400 daily, midodrine 5 mg before meals b.i.d., pain control, Entresto for CHF, Betapace 80 b.i.d. He is waiting for cardiac ablation. He definitely has saturating 100% on 2 L. Blood pressure is low 106/66 possibly thereafter takedown of Entresto, or we may have to decrease some of his other medication if blood pressure increases, midodrine at this time due to orthostatic hypotension. OBJECTIVE: CARDIOVASCULAR: S1, S2. LUNGS: Scattered wheeze. ASSESSMENT: Systolic congestive heart failure, atrial fibrillation with rapid ventricular response, chronic obstructive pulmonary disease, pulmonary hypertension. Prognosis guarded, possibly increase his midodrine. PT, OT. Wean down on his cardiac medications. MMODL / IJN: [id number] /
[2022-09-11] MEDS: ACETAMINOPHEN TAB 325 MG TAB PO SCH ×4 (06:27→22:28)
[2022-09-11] MEDS: MIDODRINE 5 MG TAB PO SCH ×3 (06:28→16:57)
[2022-09-11] MEDS: LEVOTHYROXINE 50 MCG TAB PO SCH (06:28)
[2022-09-11] MEDS: SYMBICORT 160-4.5 MCG INHALER INHALATION SCH ×2 (08:12→19:19)
[2022-09-11] MEDS: IPRATROPIUM-ALBUTEROL 3 ML NEB INHALATION SCH ×4 (08:12→19:19)
[2022-09-11] MEDS: SACUBITRIL/VALSARTAN 24 MG-26 MG TABLET PO SCH ×2 (09:19→21:02)
[2022-09-11] MEDS: APIXABAN 5 MG TAB PO SCH ×2 (09:19→21:02)
[2022-09-11] MEDS: CARBIDOPA-LEVODOPA 10-100 MG 1 EACH TAB PO SCH ×3 (09:19→21:02)
[2022-09-11] MEDS: ATORVASTATIN 80 MG TAB PO SCH (09:19)
[2022-09-11] MEDS: FUROSEMIDE 20 MG TAB PO SCH (09:19)
[2022-09-11] MEDS: CYANOCOBALAMIN 500 MCG TAB PO SCH (09:19)
[2022-09-11] MEDS: ALPRAZolam 0.25 MG TAB PO PRN (09:19)
[2022-09-11] MEDS: MAGNESIUM OXIDE 400 MG TAB PO SCH (09:19)
[2022-09-11] MEDS: FAMOTIDINE 20 MG TAB PO SCH ×2 (09:19→21:02)
[2022-09-11] MEDS: SOTALOL 80 MG TAB PO SCH ×3 (10:08→21:02)
--- NOTE | 2022-09-11 12:57 | P.PN ---
Subjective Progress Note Date: 09/11/22 This is a pleasant 62-year-old gentleman with a past medical history nonischemic cardiomyopathy, status post ICD, hypertension, alcohol abuse, left axillary vein thrombosis and atrial flutter status post ablation. Presents to the hospital after having defibrillator discharge. Interrogation of device confirmed ventricular tachycardia. He was initially initiated on amiodarone. He was seen and evaluated by Dr. Hester who discontinued amiodarone and metoprolol and started the patient on sotalol with plans for VT ablation in the next couple weeks. The patient has had no further palpitations. There's been no further episodes of VT on telemetry. He complains of some dizziness. The pressure has been on the low side but stable. Heart rate has been stable. Breathing is stable and he has no complaints of orthopnea, PND or edema. He's had no chest pain. He's had no syncope. 09/11/2022 Patient was seen and examined resting comfortably in bed. Nursing staff has been holding both sotalol due to heart rates in the high 40s and 50s. Blood pressure has been stable. Midodrine was increased by primary with a improvement in the dizziness. Objective - Vital Signs Vital signs: Vital Signs Temp 97.7 F 09/11/22 07:00 Pulse 64 09/11/22 11:54 Resp 17 09/11/22 07:00 BP 114/70 09/11/22 07:00 Pulse Ox 99 09/11/22 08:37 FiO2 Intake & Output 09/10/22 09/11/22 09/11/22 18:59 06:59 18:59 Intake Total 236 Output Total 200 350 Balance 236 -200 -350 Intake: Oral 236 Output: Urine 200 350 Other: Voiding Method Toilet Toilet Toilet # Voids 1 1 1 - Exam PHYSICAL EXAMINATION: HEENT: [Head is atraumatic, normocephalic. Pupils equal, round. Neck is supple. There is no elevated jugular venous pressure.] HEART EXAMINATION: [Heart sounds regular, S1 and S2 normal. With a systolic murmur.] CHEST EXAMINATION:[ Lungs are clear to auscultation. No chest wall tenderness is noted on palpation or with deep breathing.] ABDOMEN: [ Soft, nontender. Bowel sounds are heard. No organomegaly noted]. EXTREMITIES:[ 2+ peripheral pulses with no evidence of peripheral edema and no calf tenderness noted]. NEUROLOGIC [patient is awake, alert and oriented x3.] . - Labs CBC & Chem 7: 09/06/22 20:36 09/06/22 20:36 Assessment and Plan Assessment: #1. Ventricular tachycardia, status post defibrillator discharge #2 nonischemic myopathy status post AICD #3 atrial flutter, status post ablation #4 hypertension Plan: From cardiology's perspective medications were reviewed and will continue the same. Parameters placed on sotalol to hold if heart rate is less than 40. The patient does have a defibrillator with a backup pacing of VVI 40. Increase patient's activity, ambulating the hallway. The patient's blood pressure remained stable he may be discharged home later today. He will follow-up in the office as an outpatient and be scheduled for VT ablation in the next couple of weeks. [employer] note has been reviewed, I agree with a documented findings and plan of care. Patient was seen and examined.
[2022-09-11] MEDS: MELATONIN 5 MG TABLET PO PRN (21:02)
[2022-09-12] MEDS: LEVOTHYROXINE 50 MCG TAB PO SCH (06:17)
[2022-09-12] MEDS: MIDODRINE 5 MG TAB PO SCH ×3 (06:18→18:02)
[2022-09-12] MEDS: ACETAMINOPHEN TAB 325 MG TAB PO SCH ×4 (06:18→23:41)
--- NOTE | 2022-09-12 08:20 | PN ---
PROGRESS NOTE SUBJECTIVE: A 62-year-old white male, remains on Symbicort inhaler, DuoNeb updrafts, Eliquis, Lipitor, still has some orthostatic hypotension, which is a little bit better with higher dose of midodrine. We are going to cut down his Entresto from 2 tablets b.i.d. to 1 b.i.d. for hypotension. Betapace is being given by Cardiology into his atrial ablation. He is unstable and difficulty with walking. Will need PT, OT involved. OBJECTIVE: VITAL SIGNS: Pulse is going low into the 50s on Betapace, but up to 60s to 70s, O2 is 99 on 2 L. CARDIOVASCULAR: S1, S2. LUNGS: Decreased breath sounds x4. GI: Soft, nontender. ASSESSMENT: Orthostatic hypotension, some improved with increased midodrine. We are going to cut down the Entresto to 1 b.i.d. from 2 b.i.d. Check his blood pressures. PT, OT get him ambulating. MMALONSOL / KIMN: [id number] /
--- NOTE | 2022-09-12 10:11 | P.PN ---
Subjective Progress Note Date: 09/12/22 HISTORY OF PRESENT ILLNESS: This is a pleasant 62-year-old gentleman with a past medical history nonischemic cardiomyopathy, status post ICD, hypertension, alcohol abuse, left axillary vein thrombosis and atrial flutter status post ablation. Presents to the hospital after having defibrillator discharge. Interrogation of device confirmed ventricular tachycardia. He was initially initiated on amiodarone. He was seen and evaluated by Dr. Hester who discontinued amiodarone and metoprolol and started the patient on sotalol with plans for VT ablation in the next couple weeks. The patient has had no further palpitations. There's been no further episodes of VT on telemetry. He complains of some dizziness. The pressure has been on the low side but stable. Heart rate has been stable. Breathing is stable and he has no complaints of orthopnea, PND or edema. He's had no chest pain. He's had no syncope. 09/11/2022 Patient was seen and examined resting comfortably in bed. Nursing staff has been holding both sotalol due to heart rates in the high 40s and 50s. Blood p ressure has been stable. Midodrine was increased by primary with a improvement in the dizziness. 09/12/2022 Patient examined this morning. He is sitting on the side of the bed. He denies chest pain or pressure. He denies shortness of breath. Vital signs are stable. Blood pressures are on the lower side with a systolic in the 90s. PHYSICAL EXAM: VITAL SIGNS: Reviewed. GENERAL: Well-developed in no acute distress. NECK: Supple. No JVD or thyromegaly LUNGS: Respirations even and unlabored. Lungs essentially clear to auscultation bilaterally. HEART: Regular rate and rhythm. S1 and S2 heard. EXTREMITIES: Normal range of motion. No clubbing or cyanosis. Peripheral pulses intact. No lower extremity edema ASSESSMENT: #1. Ventricular tachycardia, status post defibrillator discharge #2 nonischemic cardiomyopathy status post AICD #3 atrial flutter, status post ablation #4 hypertension PLAN: Continue to hold amiodarone Continue current dose of sotalol Continue additional cardiac medications Patient is stable for discharge home today from a cardiac standpoint Patient is to follow up in the office and will be scheduled for VT ablation Nurse practitioner note has been reviewed by physician. Signing provider agrees with the documented findings, assessment, and plan of care. Objective - Vital Signs Vital signs: Vital Signs Temp 98.0 F 09/12/22 07:00 Pulse 72 09/12/22 07:45 Resp 17 09/12/22 07:00 BP 107/68 09/12/22 07:00 Pulse Ox 98 09/12/22 07:35 FiO2 Intake & Output 09/11/22 09/12/22 09/12/22 18:59 06:59 18:59 Intake Total 236 540 Output Total 600 Balance -364 540 Intake: Oral 236 Other 540 Output: Urine 600 Other: Voiding Method Toilet Toilet # Voids 1 1 - Labs CBC & Chem 7: 09/06/22 20:36 09/06/22 20:36
[2022-09-12] MEDS: SOTALOL 80 MG TAB PO SCH ×2 (10:17→20:26)
[2022-09-12] MEDS: SACUBITRIL/VALSARTAN 24 MG-26 MG TABLET PO SCH ×2 (10:17→20:25)
[2022-09-12] MEDS: FAMOTIDINE 20 MG TAB PO SCH ×2 (10:18→20:26)
[2022-09-12] MEDS: MAGNESIUM OXIDE 400 MG TAB PO SCH (10:18)
[2022-09-12] MEDS: APIXABAN 5 MG TAB PO SCH ×2 (10:18→20:26)
[2022-09-12] MEDS: FUROSEMIDE 20 MG TAB PO SCH (10:18)
[2022-09-12] MEDS: ATORVASTATIN 80 MG TAB PO SCH (10:18)
[2022-09-12] MEDS: CYANOCOBALAMIN 500 MCG TAB PO SCH (10:18)
[2022-09-12] MEDS: CARBIDOPA-LEVODOPA 10-100 MG 1 EACH TAB PO SCH ×3 (10:19→20:25)
[2022-09-12] MEDS: ALPRAZolam 0.25 MG TAB PO PRN ×2 (10:24→20:30)
[2022-09-12] MEDS: SYMBICORT 160-4.5 MCG INHALER INHALATION SCH ×2 (10:54→19:13)
[2022-09-12] MEDS: IPRATROPIUM-ALBUTEROL 3 ML NEB INHALATION SCH ×4 (10:54→19:13)
--- NOTE | 2022-09-12 19:28 | CT ---
EXAMINATION TYPE: CT chest wo con CT DLP: 419.9 mGycm, Automated exposure control for dose reduction was used. DATE OF EXAM: 09/12/2022 6:35 PM COMPARISON: 07/12/2022 CLINICAL INDICATION:Male, 62 years old with history of dyspnea; , Difficulty francisca athing, defib discharge TECHNIQUE: Multiple axial images were obtained through the chest. Sagittal and coronal reformats were created for review. Contrast used: none Oral contrast used: none. FINDINGS: LUNGS/ PLEURA: The lung parenchyma appears unremarkable. No focal consolidation, pneumothorax or ple ural effusion. No evidence for pulmonary vascular congestion. AIRWAY: Patent and unremarkable. HEART: Is mildly enlarged for size there is scattered atherosclerotic plaque of the coronary arteries . MEDIASTINUM: No gross evidence of adenopathy, moderate hiatal hernia with postsurgical change. There is ingested contents within the distal esophagus. VASCULATURE: No aortic aneurysm. MUSCULOSKELETAL: No acute osseous abnormalities SOFT TISSUES/LYMPH NODES: Left chest wall cardiac conduction device with leads terminating in the rig ht ventricle. LOWER NECK: No significant findings. UPPER ABDOMEN: No significant findings. IMPRESSION: 1. No evidence for acute thoracic process. No focal consolidation, pneumothorax or evidence for acut e heart failure. 2. Cardiomegaly. 3. Moderate hiatal hernia with ingested contents within the esophagus correlate for partial obstruct ion at the level of the prior surgical change possibly Carly fundoplication.
--- NOTE | 2022-09-12 21:23 | P.CNPUL ---
History of Present Illness Consult date: 09/12/22 Reason for consult: dyspnea, COPD, obstructive sleep apnea Chief complaint: Shortness of breath History of present illness: 62-year-old male with extensive history of smoking and nicotine use also has a history of alcohol consumption and quit both about 2 years ago, patient used to smoke half to 1 pack per day started since early teenage years. Patient has been sober for the last 2 years as well, patient has a history of COPD advanced Parkinson's disease and nonischemic dilated cardiomyopathy likely related to extensive alcohol consumption. It appears that patient was admitted into the hospital after having defibrillator discharge interrogation confirmed multiple tachycardia patient was initially started amiodarone subsequently changed to sotalol and ambulation of ventricular tachycardia planned in next few weeks. Patient has ongoing dizziness lightheadedness thought to be related to hypertension however by escalating dose of Midodrine improve however patient suspected to have pulmonary hypertension and COPD likely need an evaluation with pulmonary function testing and sleep study. Patient has advanced Parkinson's disease being followed up by neurology, with maximal medical therapy Review of Systems All systems: negative Past Medical History Past Medical History: Atrial Fibrillation, Heart Failure, COPD, Hyperlipidemia, Hypertension, Myocardial Infarction ([place]), Osteoarthritis (OA), Sleep Apnea/CPAP/BIPAP, Syncope Additional Past Medical History / Comment(s): see Dr Hester's H&P,[place] on's,no mobility devices,uses O2 @ 2 L NC at hs and uses prn during the day(insurance is not covering home oxygen-pt purchased an oxygen machine that makes it's own oxygen off of [employer]),will be starting cpap in 3 weeks, DVT L subclavian/surgically removed, nonischemic cardiomyopathy/AICD/pacer in place, past ETOH - no use since 04/2020 Last Myocardial Infarction Date:: 02/25/20 History of Any Multi-Drug Resistant Organisms: None Reported Past Surgical History: AICD, Appendectomy, Cardiac Ablation, Cholecystectomy, Heart Catheterization, Pacemaker Additional Past Surgical History / Comment(s): 04/27/21 lap cholecystectomy, L upper extremity venogram/thrombolysis/thrombectomy, Carly Fundiplication 08/2022 Past Anesthesia/Blood Transfusion Reactions: No Reported Reaction Type of Cardiac Device: Permanent Pacemaker, AICD Device Placement Date:: 05/01/20 Past Psychological History: Anxiety Additional Psychological History / Comment(s): Pt resides with his sister. Smoking Status: Former smoker Past Alcohol Use History: None Reported Additional Past Alcohol Use History / Comment(s): Pt started smoking in 1985 and quit 04/2020. He last drank alcohol 04/2020 Past Drug Use History: None Reported - Past Family History Mother Family Medical History: Cancer Additional Family Medical History / Comment(s): Cancer in jaw. Father Family Medical History: COPD Medications and Allergies Home Medications Medication Instructions Recorded Confirmed Type Albuterol Sulfate [Ventolin HFA] 2 puff INHALATION RT-Q6H PRN 04/28/22 09/07/22 History Atorvastatin [Lipitor] 80 mg PO DAILY 04/28/22 09/07/22 History Furosemide [Lasix] 20 mg PO DAILY 04/28/22 09/07/22 History Nitroglycerin Sl Tabs [Nitrostat] 0.4 mg SL Q5M PRN 04/28/22 09/07/22 History Apixaban [Eliquis] 5 mg PO BID #30 tab 05/14/22 09/07/22 Rx Sacubitril/Valsartan [Entresto 24 1 tab PO BID 05/25/22 09/07/22 History mg-26 mg Tablet] Cyanocobalamin [Vitamin B-12] 1,000 mcg PO DAILY tab 06/09/22 09/07/22 Rx Famotidine [Pepcid] 20 mg PO BID 90 Days #180 tab 06/09/22 09/07/22 Rx Levothyroxine Sodium [Synthroid] 50 mcg PO DAILY@0630 90 Days #90 06/09/22 09/07/22 Rx tab Fluticasone/Umeclidin/Vilanter 1 puff INHALATION RT-DAILY 06/28/22 09/07/22 History [Trelegy Ellipta 200-62.5-25] ALPRAZolam [Xanax] 0.25 mg PO TID PRN 07/02/22 09/07/22 History Budesonide/Formoterol Fumarate 2 puff INHALATION RT-BID 07/02/22 09/07/22 History [Symbicort 160-4.5 Mcg Inhaler] Carbidopa-Levodopa 10-100 mg 1 tab PO TID 07/02/22 09/07/22 History [Sinemet 10-100 mg] Melatonin 5 mg PO HS PRN 07/02/22 09/07/22 History Albuterol Nebulized [Ventolin 2.5 mg INHALATION RT-QID 30 Days 07/07/22 09/07/22 Rx Nebulized] #120 ml Ipratropium [place] 0.2 mg INHALATION RT-BID 07/11/22 09/07/22 History Midodrine [ProAmatine] 5 mg PO BID 08/26/22 09/07/22 History Acetaminophen Tab [Tylenol] 650 mg PO Q6H #30 tab 08/30/22 09/07/22 Rx Ibuprofen [Motrin] 600 mg PO Q6HR PRN #40 tab 08/30/22 09/07/22 Rx oxyCODONE HCL [OxyIR] 5 mg PO Q6H PRN 3 Days #10 tab 08/30/22 09/07/22 Rx Sotalol [Betapace] 80 mg PO BID #60 tab 09/12/22 Rx Allergies Allergy/AdvReac Type Severity Reaction Status Date / Time No Known Allergies Allergy Verified 09/07/22 07:08 Physical Exam Vitals: Vital Signs Temp Pulse Pulse Pulse Pulse Pulse Resp 09/12/22 19:31 97.5 F L 49 L 55 L 52 L 16 09/12/22 19:23 77 09/12/22 19:13 72 09/12/22 15:27 72 09/12/22 15:20 68 09/12/22 11:01 76 09/12/22 10:56 68 09/12/22 07:45 72 09/12/22 07:35 68 09/12/22 07:00 98.0 F 52 L 17 09/12/22 02:31 97.8 F 52 L 16 09/12/22 01:41 15 BP BP BP BP Pulse Ox FiO2 09/12/22 19:31 121/78 110/70 107/71 97 09/12/22 19:23 09/12/22 19:13 09/12/22 15:27 09/12/22 15:20 09/12/22 11:01 09/12/22 10:56 09/12/22 07:45 09/12/22 07:35 98 09/12/22 07:00 107/68 98 09/12/22 02:31 95/50 96 09/12/22 01:41 Intake and Output 09/12/22 09/12/22 09/12/22 06:59 14:59 22:59 Intake Total 540 Output Total 250 Balance 540 -250 Intake: Other 540 Output: Urine 250 Other: Voiding Method Toilet Toilet # Voids 1 - Constitutional General appearance: average body habitus, cooperative, disheveled, mild distress - EENT Eyes: EOMI, PERRLA Ears: bilateral: normal - Neck Neck: normal ROM Carotids: bilateral: upstroke normal Thyroid: negative: normal size - Respiratory Respiratory: bilateral: CTA - Cardiovascular Rhythm: regular Heart sounds: normal: S1, S2 - Gastrointestinal General gastrointestinal: decreased bowel sounds, soft - Neurologic Neurologic: CNII-XII intact - Musculoskeletal Musculoskeletal: gait normal, generalized weakness, strength equal bilaterally - Psychiatric Psychiatric: A&O x's 3, appropriate affect, intact judgment & insight Results - Laboratory Findings CBC and BMP: 09/06/22 20:36 09/06/22 20:36 PT/INR, D-dimer PT 10.7 sec (9.0-12.0) 09/06/22 20:36 INR 1.0 (<1.2) 09/06/22 20:36 Abnormal lab findings: Abnormal Labs 09/06/22 09/07/22 20:36 02:58 RBC 4.00 L Hgb 12.3 L Hct 36.9 L HDL Cholesterol 38.10 L - Diagnostic Findings Chest x-ray: report reviewed, image reviewed CT scan - chest: report reviewed, image reviewed (Admitted chest x-ray on 09/06/2022, no active process noted, computed tomography scan of the chest no acute processes noted no focal consolidation pneumothorax or evidence of acute heart disease, and some cardiomegaly along with hiatal hernia noted) Assessment and Plan Assessment: COPD with mild exacerbation , patient is on bronchodilators and IV steroids tolerating well, however can be switched to oral prior to discharge History of Pulmonary hypertension group 3 likely related to sleep disorder b reathing and plan to have a sleep study as outpatient 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
[2022-09-12] MEDS: MELATONIN 5 MG TABLET PO PRN (23:41)
[2022-09-12] MEDS: methylPREDNISolone SOD SUCCI 40 MG/ML 1 ML VIAL IV SCH (23:42)
[2022-09-13] MEDS: LEVOTHYROXINE 50 MCG TAB PO SCH (06:00)
[2022-09-13] MEDS: MIDODRINE 5 MG TAB PO SCH ×3 (06:00→16:56)
[2022-09-13] MEDS: ACETAMINOPHEN TAB 325 MG TAB PO SCH ×2 (06:01→13:08)
[2022-09-13] MEDS: SYMBICORT 160-4.5 MCG INHALER INHALATION SCH (08:19)
[2022-09-13] MEDS: IPRATROPIUM-ALBUTEROL 3 ML NEB INHALATION SCH ×3 (08:19→16:30)
[2022-09-13 08:29] VITALS: RESP 16
[2022-09-13] MEDS: CARBIDOPA-LEVODOPA 10-100 MG 1 EACH TAB PO SCH (09:05)
[2022-09-13] MEDS: SACUBITRIL/VALSARTAN 24 MG-26 MG TABLET PO SCH (09:05)
[2022-09-13] MEDS: methylPREDNISolone SOD SUCCI 40 MG/ML 1 ML VIAL IV SCH ×2 (09:05→16:57)
[2022-09-13] MEDS: ATORVASTATIN 80 MG TAB PO SCH (09:06)
[2022-09-13] MEDS: CYANOCOBALAMIN 500 MCG TAB PO SCH (09:06)
[2022-09-13] MEDS: FUROSEMIDE 20 MG TAB PO SCH (09:06)
[2022-09-13] MEDS: APIXABAN 5 MG TAB PO SCH (09:06)
[2022-09-13] MEDS: FAMOTIDINE 20 MG TAB PO SCH (09:06)
[2022-09-13] MEDS: SOTALOL 80 MG TAB PO SCH (09:07)
[2022-09-13] MEDS: MAGNESIUM OXIDE 400 MG TAB PO SCH (09:17)
[2022-09-13] MEDS: ALPRAZolam 0.25 MG TAB PO PRN (13:10)
--- NOTE | 2022-09-13 13:10 | P.CNNES ---
History of Present Illness Consult date: 09/13/22 Requesting physician: Felix Burgos Reason for Consult: tremor, weakness History of Present Illness: This is a 62-year-old gentleman with history of Parkinson's disease, heart failure status post AICD, atrial fibrillation status post ablation on eliquis, hypertension, anxiety reasons emergency department because of discharges from his AICD. Neurologist consulted for tremor with weakness. Patient stated that he has history of Parkinson's disease for years and the he is on Sinemet 10-100 1 tab tid for a long time and feels about the same. He has tremor of uppers and feels mostly when anxious. Denies of any new neurological issues otherwise. Denies following-up with neurologist recently. Per nurse she states his tremors seems under control and getting Xanax which is helping with his anxiety. He was seen by Dr. Golden (neuro-hospitalist) in our facility near end of 06/02 for dizziness and lightheadedness and he suspected due to cardiopulmonary condition. Please refer to his notes for further details. Some of the work-up during this hospital visit consisted: TSH: 4.6 Comprehensive metabolic panel is normal. Last CT head in our facility was on 06/04/22: Reported as negative. I personally reviewed images and agree with report. Review of Systems Review of system: The 12 point system was reviewed and apparent positive and negative per HPI. Past Medical History Past Medical History: Atrial Fibrillation, Heart Failure, COPD, Hyperlipidemia, Hypertension, Myocardial Infarction ([place]), Osteoarthritis ([place]), Sleep Apnea/CPAP/BIPAP, Syncope Additional Past Medical History / Comment(s): see Dr Hester's H&P,Parkinson's,no mobility devices,uses O2 @ 2 L NC at hs and uses prn during the day(insurance is not covering home oxygen-pt purchased an oxygen machine that makes it's own oxygen off of [employer]),will be starting cpap in 3 weeks, DVT L subclavian/surgically removed, nonischemic cardiomyopathy/AICD/pacer in place, past ETOH - no use since 04/2020 Last Myocardial Infarction Date:: 02/25/20 History of Any Multi-Drug Resistant Organisms: None Reported Past Surgical History: AICD, Appendectomy, Cardiac Ablation, Cholecystectomy, Heart Catheterization, Pacemaker Additional Past Surgical History / Comment(s): 04/27/21 lap cholecystectomy, L upper extremity venogram/thrombolysis/thrombectomy, Carly Fundiplication 08/2022 Past Anesthesia/Blood Transfusion Reactions: No Reported Reaction Type of Cardiac Device: Permanent Pacemaker, AICD Device Placement Date:: 05/01/20 Past Psychological History: Anxiety Additional Psychological History / Comment(s): Pt resides with his sister. Smoking Status: Former smoker Past Alcohol Use History: None Reported Additional Past Alcohol Use History / Comment(s): Pt started smoking in 1985 and quit 04/2020. He last drank alcohol 04/2020 Past Drug Use History: None Reported - Past Family History Mother Family Medical History: Cancer Additional Family Medical History / Comment(s): Cancer in jaw. Father Family Medical History: COPD Medications and Allergies Home Medications Medication Instructions Recorded Confirmed Type Albuterol Sulfate [Ventolin HFA] 2 puff INHALATION RT-Q6H PRN 04/28/22 09/07/22 History Atorvastatin [Lipitor] 80 mg PO DAILY 04/28/22 09/07/22 History Furosemide [Lasix] 20 mg PO DAILY 04/28/22 09/07/22 History Nitroglycerin Sl Tabs [Nitrostat] 0.4 mg SL Q5M PRN 04/28/22 09/07/22 History Apixaban [Eliquis] 5 mg PO BID #30 tab 05/14/22 09/07/22 Rx Sacubitril/Valsartan [Entresto 24 1 tab PO BID 05/25/22 09/07/22 History mg-26 mg Tablet] Cyanocobalamin [Vitamin B-12] 1,000 mcg PO DAILY tab 06/09/22 09/07/22 Rx Famotidine [Pepcid] 20 mg PO BID 90 Days #180 tab 06/09/22 09/07/22 Rx Levothyroxine Sodium [Synthroid] 50 mcg PO DAILY@0630 90 Days #90 06/09/22 09/07/22 Rx tab Fluticasone/Umeclidin/Vilanter 1 puff INHALATION RT-DAILY 06/28/22 09/07/22 History [Trelegy Ellipta 200-62.5-25] ALPRAZolam [Xanax] 0.25 mg PO TID PRN 07/02/22 09/07/22 History Budesonide/Formoterol Fumarate 2 puff INHALATION RT-BID 07/02/22 09/07/22 History [Symbicort 160-4.5 Mcg Inhaler] Carbidopa-Levodopa 10-100 mg 1 tab PO TID 07/02/22 09/07/22 History [Sinemet 10-100 mg] Melatonin 5 mg PO HS PRN 07/02/22 09/07/22 History Albuterol Nebulized [Ventolin 2.5 mg INHALATION RT-QID 30 Days 07/07/22 09/07/22 Rx Nebulized] #120 ml Ipratropium [place] 0.2 mg INHALATION RT-BID 07/11/22 09/07/22 History Midodrine [ProAmatine] 5 mg PO BID 08/26/22 09/07/22 History Acetaminophen Tab [Tylenol] 650 mg PO Q6H #30 tab 08/30/22 09/07/22 Rx Ibuprofen [Motrin] 600 mg PO Q6HR PRN #40 tab 08/30/22 09/07/22 Rx oxyCODONE HCL [OxyIR] 5 mg PO Q6H PRN 3 Days #10 tab 08/30/22 09/07/22 Rx Sotalol [Betapace] 80 mg PO BID #60 tab 09/12/22 Rx Allergies Allergy/AdvReac Type Severity Reaction Status Date / Time No Known Allergies Allergy Verified 09/07/22 07:08 Physical Examination - Vital Signs Vital Signs: Vital Signs Temp Pulse Pulse Pulse Pulse Pulse Resp 09/13/22 08:31 60 09/13/22 08:29 98.3 F 58 L 58 L 50 L 16 09/13/22 08:19 56 L 09/13/22 07:00 98.3 F 50 L 16 09/13/22 02:35 98.1 F 54 L 17 09/12/22 19:31 97.5 F L 49 L 55 L 52 L 16 09/12/22 19:23 77 09/12/22 19:13 72 09/12/22 15:27 72 09/12/22 15:20 68 BP BP BP BP BP BP BP 09/13/22 08:31 09/13/22 08:29 102/65 113/73 105/59 09/13/22 08:19 09/13/22 07:00 105/59 09/13/22 02:35 102/59 09/12/22 19:31 121/78 110/70 107/71 09/12/22 19:23 09/12/22 19:13 09/12/22 15:27 09/12/22 15:20 Pulse Ox FiO2 09/13/22 08:31 09/13/22 08:29 97 09/13/22 08:19 100 09/13/22 07:00 97 09/13/22 02:35 97 09/12/22 19:31 97 09/12/22 19:23 09/12/22 19:13 09/12/22 15:27 09/12/22 15:20 Intake and Output 09/12/22 09/13/22 09/13/22 22:59 06:59 14:59 Intake Total 118 Output Total 0 0 Balance 0 0 118 Intake: Oral 118 Output: Emesis 0 0 Other: Voiding Method Toilet Toilet GENERAL: The patient is lying in bed and is not in acute distress. NEUROLOGICAL: Higher mental function: The patient is awake, alert, oriented to self, place and time. Patient is following commands. No aphasia and no neglect. Cranial nerves: The pupils are round, equal and reactive to light and accommodation. Visual mendosa are full to confrontation throughout. Extraocular movement is intact no nystagmus is noted. Facial sensation is normal to touch throughout. The facial strength is normal throughout. Hearing is normal bilaterally to hand rub. Tongue is midline and moved [id number] without any difficulty. No dysarthria is noted. Shoulder shrug is normal bilaterally. Motor: The strength is 5 over 5 throughout. Normal tone and bulk. Has brief resting tremor of right > left upper and seems when anxious and subside when relaxed. Cerebellum: Normal finger to nose bilaterally. Has end of action tremor. Sensation: Sensation is normal to touch throughout. Reflexes (right/left): 2+ throughout. Plantars are downgoing bilaterally. Results - Laboratory Findings CBC and BMP: 09/06/22 20:36 09/06/22 20:36 Abnormal Lab Findings: Abnormal Labs 09/06/22 09/07/22 20:36 02:58 RBC 4.00 L Hgb 12.3 L Hct 36.9 L HDL Cholesterol 38.10 L Assessment and Plan Assessment: Ventricular tachycardia s/p defibrillator discharges Parkinson's disease and stated had it for years Heart failure status post AICD Atrial fibrillation s/p ablation on Eliquis Hypertension COPD Osteoarthritis Anxiety Plan: I will go up on Sinemet since feels he continues to have tremors and will go up from 10-100 1 tab tid to qid. Recommend MRI Brain as outpatient that is AICD compatible to rule out other causes of his tremors. Also recommend [place] scan as outpatient for his tremors. Will defer rest of management to other specialist. Recommend he follows-up with neurologist as outpatient within 2 weeks. The plan is discussed with patient and his nurse. Thank you for the consultation. Time with Patient: Greater than 30
[2022-09-13 14:17] VITALS: BMI 26.6
[2022-09-13 15:28] VITALS: BP 107/62; TEMP 98.1
[2022-09-13] MEDS ORDERED: CARBIDOPA-LEVODOPA 10-100 MG 1 EACH TAB PO SCH (16:00)
[2022-09-13 16:33] VITALS: PULSE 52
[2022-09-14] MEDS ORDERED: methylPREDNISolone 4 MG TAB TAPER PO SCH (09:00)
== END 2022-09-13 18:16 | disposition home or self-care (01) ==
LOC: EC 19:12 → 6NMEDSUR 23:53
PROVIDERS: ADMIT Family Medicine; ATTEND Family Medicine
DX: T82.897A Other specified complication of cardiac prosthetic devices, implants and grafts, initial encounter (principal); I42.0 Dilated cardiomyopathy; I48.0 Paroxysmal atrial fibrillation; I27.20 Pulmonary hypertension, unspecified; I47.20 Ventricular tachycardia, unspecified; I11.0 Hypertensive heart disease with heart failure; I50.22 Chronic systolic (congestive) heart failure; E78.5 Hyperlipidemia, unspecified; G47.33 Obstructive sleep apnea (adult) (pediatric); I25.2 Old myocardial infarction; M19.90 Unspecified osteoarthritis, unspecified site; G20 Parkinson's disease; Z86.718 Personal history of other venous thrombosis and embolism; F10.11 Alcohol abuse, in remission; Z90.49 Acquired absence of other specified parts of digestive tract; F41.9 Anxiety disorder, unspecified; Z87.891 Personal history of nicotine dependence; Z80.8 Family history of malignant neoplasm of other organs or systems; Z83.6 Family history of other diseases of the respiratory system; Z79.01 Long term (current) use of anticoagulants; Z79.890 Hormone replacement therapy; Z79.51 Long term (current) use of inhaled steroids; Z79.899 Other long term (current) drug therapy; Z95.5 Presence of coronary angioplasty implant and graft; Z98.890 Other specified postprocedural states
CPT/HCPCS: 96376; 96375 ×2; 96374; 99285; 36415; 94640 ×14; 94760 ×6; 93005 ×2; 93308; 97162; 80061; 80053; 82533; 83735; 84443; 84484 ×2; 85025; 85610; 85730; 71045; 71250; G0378 ×7; J2270; J2920 ×2; J1170

== ENCOUNTER 2022-09-16 17:41 | Inpatient (IN) | payer OTHER ==
[2022-09-16 18:10] LABS: Basophils % (A) 0 %; Eosinophils # (A) 0.1 k/uL (0-0.7); Eosinophils % (A) 1 %; HCT 38.6 % (39.0-53.0); HGB 12.6 gm/dL (13.0-17.5); Lymphocytes # (A) 1.4 k/uL (1.0-4.8); Lymphocytes % (A) 12 %; MCH 29.8 pg (25.0-35.0); MCHC 32.5 g/dL (31.0-37.0); MCV 91.5 fL (80.0-100.0); Mean Platelet Volume 8.9; Monocytes # (A) 0.7 k/uL (0-1.0); Monocytes % (A) 6 %; Neutrophils # (A) 9.2 k/uL (1.3-7.7); Neutrophils % (A) 80 %; Platelet Count 287 k/uL (150-450); RBC 4.22 m/uL (4.30-5.90); RDW 13.5 % (11.5-15.5); WBC 11.5 k/uL (3.8-10.6)
[2022-09-16 18:21] LABS: ALT 22 U/L (4-49); AST 26 U/L (17-59); African American GFR (CKD) >90 (>60 ml/min/1.73 sqM); Albumin 4.4 g/dL (3.5-5.0); Alkaline Phosphatase 70 U/L (38-126); Anion Gap 11 mmol/L; Blood Urea Nitrogen 21 mg/dL (9-20); Calcium 9.2 mg/dL (8.4-10.2); Carbon Dioxide 24 mmol/L (22-30); Chloride 104 mmol/L (98-107); Glucose 101 mg/dL (74-99); Magnesium 2.2 mg/dL (1.6-2.3); Non-African American GFR(CKD) >90 (>60 ml/min/1.73 sqM); Potassium 4.2 mmol/L (3.5-5.1); Sodium 139 mmol/L (137-145); Total Bilirubin 0.5 mg/dL (0.2-1.3); Total Protein 7.2 g/dL (6.3-8.2)
[2022-09-16 18:29] LABS: Partial Thromboplastin Time 24.8 sec (22.0-30.0); Prothrombin Time 10.9 sec (9.0-12.0)
--- NOTE | 2022-09-16 18:32 | ED ---
General Adult HPI - General Chief complaint: Syncope Stated complaint: Syncope Time Seen by Provider: 09/16/22 17:51 Source: patient, EMS Mode of arrival: EMS Limitations: no limitations - History of Present Illness Initial comments: Dictation was produced using [employer] dictation software. please excuse any grammatical, word or spelling errors. Chief Complaint: 62-year-old male recently discharged for Hospital presents emergency Department with lightheadedness and syncope History of Present Illness: 62-year-old male recently discharged from the hospital with new beta shahram medication. Since being discharged from the hospital he has not been feeling well. Today he was in bed doing a breathing treatment when he felt like he had passed out. States that he had an ablation a week ago for A. fib RVR. EMS reports that patient's heart rate has been in the 40s. Patient has no pain complaints. States that he has a AICD pacemaker implanted for the last several years. The ROS documented in this emergency department record has been reviewed and confirmed by me. Those systems with pertinent positive or negative responses have been documented in the HPI. All other systems are other negative and/or noncontributory. - Related Data Home Medications Medication Instructions Recorded Confirmed Albuterol Sulfate [Ventolin HFA] 2 puff INHALATION RT-Q6H PRN 04/28/22 09/16/22 Atorvastatin [Lipitor] 80 mg PO DAILY 04/28/22 09/16/22 Furosemide [Lasix] 20 mg PO DAILY 04/28/22 09/16/22 Nitroglycerin Sl Tabs [Nitrostat] 0.4 mg SL Q5M PRN 04/28/22 09/16/22 Sacubitril/Valsartan [Entresto 24 1 tab PO BID 05/25/22 09/16/22 mg-26 mg Tablet] Fluticasone/Umeclidin/Vilanter 1 puff INHALATION RT-DAILY 06/28/22 09/16/22 [Trelegy Ellipta 200-62.5-25] ALPRAZolam [Xanax] 0.25 mg PO TID PRN 07/02/22 09/16/22 Budesonide/Formoterol Fumarate 2 puff INHALATION RT-BID 07/02/22 09/16/22 [Symbicort 160-4.5 Mcg Inhaler] Carbidopa-Levodopa 10-100 mg 1 tab PO TID 07/02/22 09/16/22 [Sinemet 10-100 mg] Melatonin 5 mg PO HS PRN 07/02/22 09/16/22 Ipratropium [place] 0.2 mg INHALATION RT-BID 07/11/22 09/16/22 Acetaminophen Tab [Tylenol] 650 mg PO Q6H PRN 09/16/22 09/16/22 predniSONE [Deltasone] See Taper PO DIRECTED 09/16/22 09/16/22 Previous Rx's Medication Instructions Recorded Apixaban [Eliquis] 5 mg PO BID #30 tab 05/14/22 Cyanocobalamin [Vitamin B-12] 1,000 mcg PO DAILY tab 06/09/22 Famotidine [Pepcid] 20 mg PO BID 90 Days #180 tab 06/09/22 Levothyroxine Sodium [Synthroid] 50 mcg PO DAILY@0630 90 Days #90 06/09/22 tab Albuterol Nebulized [Ventolin 2.5 mg INHALATION RT-QID 30 Days 07/07/22 Nebulized] #120 ml Sotalol [Betapace] 80 mg PO BID #60 tab 09/12/22 Midodrine [ProAmatine] 10 mg PO AC-TID 30 Days #90 tab 09/13/22 Allergies Allergy/AdvReac Type Severity Reaction Status Date / Time No Known Allergies Allergy Verified 09/16/22 19:18 Review of Systems ROS Statement: Those systems with pertinent positive or pertinent negative responses have been documented in the HPI. ROS Other: All systems not noted in ROS Statement are negative. Past Medical History Past Medical History: Atrial Fibrillation, Heart Failure, COPD, Hyperlipidemia, Hypertension, Myocardial Infarction ([place]), Osteoarthritis (OA), Sleep Apnea/CPAP/BIPAP, Syncope Additional Past Medical History / Comment(s): see Dr Hester's H&P,Parkinso n's,no mobility devices,uses O2 @ 2 L NC at hs and uses prn during the day(insurance is not covering home oxygen-pt purchased an oxygen machine that makes it's own oxygen off of [employer]),will be starting cpap in 3 weeks, DVT L subclavian/surgically removed, nonischemic cardiomyopathy/AICD/pacer in place, past ETOH - no use since 04/2020 Last Myocardial Infarction Date:: 02/25/20 History of Any Multi-Drug Resistant Organisms: None Reported Past Surgical History: AICD, Appendectomy, Cardiac Ablation, Cholecystectomy, Heart Catheterization, Hernia Repair, Pacemaker Additional Past Surgical History / Comment(s): 04/27/21 lap cholecystectomy, L upper extremity venogram/thrombolysis/thrombectomy, Carly Fundiplication 08/2022 Past Anesthesia/Blood Transfusion Reactions: No Reported Reaction Type of Cardiac Device: Permanent Pacemaker, AICD Device Placement Date:: 05/01/20 Past Psychological History: Anxiety Smoking Status: Former smoker Past Drug Use History: None Reported - Past Family History Mother Family Medical History: Cancer Additional Family Medical History / Comment(s): Cancer in jaw. Father Family Medical History: COPD General Exam - General Exam Comments Initial Comments: PHYSICAL EXAM: General Impression: Alert and oriented x3, not in acute distress HEENT: Normocephalic atraumatic, extra-ocular movements intact, pupils equal and reactive to light bilaterally, mucous membranes moist. Cardiovascular: Heart regular rate and rhythm Chest: Able to complete full sentences, no retractions, no tachypnea Abdomen: abdomen soft, non-tender, non-distended, no organomegaly Musculoskeletal: Pulses present and equal in all extremities, no peripheral edema Motor: no focal deficits noted Neurological: CN II-XII grossly intact, no focal motor or sensory deficits noted Skin: Intact with no visualized rashes Psych: Normal affect and mood Limitations: no limitations Course Vital Signs 09/16/22 09/16/22 09/16/22 17:42 19:00 19:25 Temperature 99.2 F Pulse Rate 44 L 52 L 61 Respiratory 18 18 18 Rate Blood Pressure 121/91 148/71 140/90 O2 Sat by Pulse 98 97 97 Oximetry EKG Findings - EKG Comments: EKG Findings:: My EKG interpretation: Ventricular rate 41, sinus bradycardia,. Interval 153, QRS 153, QTc 459. No TN prolongation, no QTC prolongation, no ST or T-wave changes noted. EKG compared to 09/06/2022 showing no changes. Overall, this EKG is unremarkable Medical Decision Making - Medical Decision Making Was pt. sent in by a medical professional or institution (, PA, HAND INSERTER OPERATOR, urgent care, hospital, or senior living...) When possible be specific @ -No Did you speak to anyone other than the patient for history (EMS, parent, family, police, friend...)? What history was obtained from this source @ -No Did you review nursing and triage notes (agree or disagree)? Why? @ -I reviewed and agree with nursing and triage notes Were old charts reviewed (outside hosp., previous admission, EMS record, old EKG, old radiological studies, urgent care reports/EKG's, senior living records)? Report findings @ -Recent cardiac notes reviewed. The patient had electrophysiology procedure performed on 09/08/2022 Differential Diagnosis (chest pain, altered mental status, abdominal pain women, abdominal pain men, vaginal bleeding, musculoskeletal, weakness, fever, dyspnea, syncope, headache, dizziness, GI bleed, back pain, seizure, CVA, palpatations, mental health)? @ -Differential Syncope: Valvular disease, hypertrophic cardiomyopathy, pulmonary embolism, tamponade, tachycardia, bradycardia, [place], hypovolemia, hemorrhage, dissection, anemia, intracranial hemorrhage, seizure, hypoglycemia, carbon monoxide poisoning, this is not meant to be an all-inclusive list. EKG interpreted by me (3pts min.). @ -See above X-rays interpreted by me (1pt min.). @ -Chest x-ray is unremarkable CT interpreted by me (1pt min.). @ -None done U/S interpreted by me (1pt. min.). @ -None done What testing was considered but not performed or refused? (CT, X-rays, U/S, labs)? Why? @ -None What meds were considered but not given or refused? Why? @ -None Did you discuss the management of the patient with other professionals (professionals i.e. , PA, HAND INSERTER OPERATOR, lab, RT, psych nurse, social group worker, color adviser, teacher, executive vice president and chief operating officer, field case manager)? Give summary @ -Labs imaging and recent cardiac notes were reviewed with Dr. Daugherty for admission was covering Dr. Burgos Was smoking cessation discussed for >3mins.? @ -No Was critical care preformed (if so, how long)? @ -No Were there social determinants of health that impacted care today? How? (Homelessness, low income, unemployed, alcoholism, drug addiction, transportation, low edu. Level, literacy, decrease access to med. care, half-way, rehab)? @ -No Was there de-escalation of care discussed even if they declined (Discuss DNR or withdrawal of care, Hospice)? DNR status @ -No What co-morbidities impacted this encounter? (DM, HTN, Smoking, COPD, CAD, Cancer, CVA, ARF, Chemo, Hep., AIDS, mental health diagnosis, sleep apnea, morbid obesity)? @ -None Was patient admitted / discharged? Hospital course, mention meds given and route, prescriptions, significant lab abnormalities, going to OR and other pertinent info. @ -62-year-old male presents to the emergency department for dizziness syncopal episode. His past medical history of cardiac disease. Recently had ablation performed by cardiology. Patient bradycardic on arrival. In the 40s. Patient observed in emergency Department with improvement of heart rate into the 50s. His concern that patient is experiencing adverse effects from new beta shahram medication. Labs unremarkable. Patient be admitted for cardiac monitoring cardiology evaluation Undiagnosed new problem with uncertain prognosis? @ -No Drug Therapy requiring intensive monitoring for toxicity (Heparin, Nitro, Insu eren, Cardizem)? @ -No Were any procedures done? @ -No Diagnosis/symptom? Acute, or Chronic, or Acute on Chronic? Uncomplicated (without systemic symptoms) or Complicated (systemic symptoms)? @ -1. Symptomatic bradycardia Side effects of treatment? @ -No Exacerbation, Progression, or Severe Exacerbation? @ -No Poses a threat to life or bodily function? How? (Chest pain, [place], [place], pneumonia, PE, COPD, DKA, ARF, appy, cholecystitis, CVA, Diverticulitis, Homicidal, Suicidal, threat to staff... and all critical care pts) @ -yes - Lab Data Result diagrams: 09/16/22 17:49 09/16/22 17:49 Lab Results 09/16/22 09/16/22 09/16/22 Range/Units 17:49 17:49 17:49 WBC 11.5 H (3.8-10.6) k/uL RBC 4.22 L (4.30-5.90) m/uL Hgb 12.6 L (13.0-17.5) gm/dL Hct 38.6 L (39.0-53.0) % MCV 91.5 (80.0-100.0) fL MCH 29.8 (25.0-35.0) pg MCHC 32.5 (31.0-37.0) g/dL RDW 13.5 (11.5-15.5) % Plt Count 287 (150-450) k/uL MPV 8.9 Neutrophils % 80 % Lymphocytes % 12 % Monocytes % 6 % Eosinophils % 1 % Basophils % 0 % Neutrophils # 9.2 H (1.3-7.7) k/uL Lymphocytes # 1.4 (1.0-4.8) k/uL Monocytes # 0.7 (0-1.0) k/uL Eosinophils # 0.1 (0-0.7) k/uL Basophils # 0.0 (0-0.2) k/uL PT 10.9 (9.0-12.0) sec INR 1.0 (<1.2) APTT 24.8 (22.0-30.0) sec Sodium 139 (137-145) mmol/L Potassium 4.2 (3.5-5.1) mmol/L Chloride 104 (98-107) mmol/L Carbon Dioxide 24 (22-30) mmol/L Anion Gap 11 mmol/L BUN 21 H (9-20) mg/dL Creatinine 0.70 (0.66-1.25) mg/dL Est GFR (CKD-EPI)AfAm >90 (>60 ml/min/1.73 sqM) Est GFR (CKD-EPI)NonAf >90 (>60 ml/min/1.73 sqM) Glucose 101 H (74-99) mg/dL Calcium 9.2 (8.4-10.2) mg/dL Magnesium 2.2 (1.6-2.3) mg/dL Total Bilirubin 0.5 (0.2-1.3) mg/dL AST 26 (17-59) U/L ALT 22 (4-49) U/L Alkaline Phosphatase 70 (38-126) U/L Troponin I (0.000-0.034) ng/mL Total Protein 7.2 (6.3-8.2) g/dL Albumin 4.4 (3.5-5.0) g/dL TSH 0.281 L (0.465-4.680) mIU/L 09/16/22 Range/Units 17:49 WBC (3.8-10.6) k/uL RBC (4.30-5.90) m/uL Hgb (13.0-17.5) gm/dL Hct (39.0-53.0) % MCV (80.0-100.0) fL MCH (25.0-35.0) pg MCHC (31.0-37.0) g/dL RDW (11.5-15.5) % Plt Count (150-450) k/uL MPV Neutrophils % % Lymphocytes % % Monocytes % % Eosinophils % % Basophils % % Neutrophils # (1.3-7.7) k/uL Lymphocytes # (1.0-4.8) k/uL Monocytes # (0-1.0) k/uL Eosinophils # (0-0.7) k/uL Basophils # (0-0.2) k/uL PT (9.0-12.0) sec INR (<1.2) APTT (22.0-30.0) sec Sodium (137-145) mmol/L Potassium (3.5-5.1) mmol/L Chloride (98-107) mmol/L Carbon Dioxide (22-30) mmol/L Anion Gap mmol/L BUN (9-20) mg/dL Creatinine (0.66-1.25) mg/dL Est GFR (CKD-EPI)AfAm (>60 ml/min/1.73 sqM) Est GFR (CKD-EPI)NonAf (>60 ml/min/1.73 sqM) Glucose (74-99) mg/dL Calcium (8.4-10.2) mg/dL Magnesium (1.6-2.3) mg/dL Total Bilirubin (0.2-1.3) mg/dL AST (17-59) U/L ALT (4-49) U/L Alkaline Phosphatase (38-126) U/L Troponin I <0.012 (0.000-0.034) ng/mL Total Protein (6.3-8.2) g/dL Albumin (3.5-5.0) g/dL TSH (0.465-4.680) mIU/L Disposition Clinical Impression: Bradycardia Disposition: ADMITTED IP TO THIS [facility] Condition: Fair Referrals: Felix Burgos MD [Primary Care Provider] - 1-2 days Decision Time: 19:14
--- NOTE | 2022-09-16 18:40 | XR ---
EXAMINATION TYPE: XR chest 2V DATE OF EXAM: 09/16/2022 6:05 PM COMPARISON: None TECHNIQUE: XR chest 2V Frontal and lateral views of the chest. CLINICAL INDICATION:Male, 62 years old with history of dysrhythmia; FINDINGS: Lungs/Pleura: There is no evidence of pleural effusion, focal consolidation, or pneumothorax. Pulmonary vascularity: Unremarkable. Heart/mediastinum: Cardiomediastinal silhouette is unremarkable. Atherosclerotic calcifications are seen in the aorta. Single-lead cardiac conduction device overlying the left hemithorax with lead proj ecting over the right ventricle. Musculoskeletal: No acute osseous pathology. IMPRESSION: No acute cardiopulmonary disease/process.
[2022-09-16] MEDS ORDERED: MORPHINE SULFATE 4 MG/ML SYRINGE IV STA (19:00)
[2022-09-17] MEDS: MORPHINE SULFATE 4 MG/ML SYRINGE IVP PRN ×7 (00:24→21:49)
[2022-09-17] MEDS ORDERED: ACETAMINOPHEN TAB 325 MG TAB PO PRN (10:47)
[2022-09-17] MEDS ORDERED: NITROGLYCERIN SL TABS 0.4 MG TAB SUBLINGUAL PRN (10:47)
[2022-09-17] MEDS ORDERED: ALBUTEROL NEBULIZED 2.5 MG/3 ML INHALATION PRN (10:47)
[2022-09-17] MEDS ORDERED: predniSONE 20 MG TAB PO ONE (11:15)
--- NOTE | 2022-09-17 11:15 | P.HPPUL ---
History of Present Illness H&P Date: 09/17/22 Chief Complaint: Lightheadedness and syncope Patient seen eval reexamined, patient came into the hospital with lightheadedness and syncope found to have a heart rate of only 30s severe bradycardia, patient has been seen by EP service and recently discharged from the hospital, has been started on new beta shahram medicine, patient is status post ablation a week ago for A. fib RVR, Monday using nebulizer treatment almost ready to pass out. He has significant history of nonischemic cardiomyopathy thought to be related to alcohol in addition alcoholic liver disease, COPD, dyslipidemia, congestive heart failure with reduced ejection fraction, insomnia and generalized anxiety disorder patient was recently with a COPD exacerbation has been on tapering doses of prednisone on specific questioning denies any fevers chills denies any chest pain cough or sputum production, denies any loss of consciousness, denies any nausea vomiting diarrhea Review of Systems All systems: negative Past Medical History Past Medical History: Atrial Fibrillation, Heart Failure, COPD, Hyperlipidemia, Hypertension, Myocardial Infarction ([place]), Osteoarthritis ([place]), Sleep Apnea/CPAP/BIPAP, Syncope Additional Past Medical History / Comment(s): see Dr Hester's H&P,Parkinson's,no mobility devices,uses O2 @ 2 L NC at hs and uses prn during the day(insurance is not covering home oxygen-pt purchased an oxygen machine that makes it's own oxygen off of [employer]),will be starting cpap in 3 weeks, DVT L subclavian/surgically removed, nonischemic cardiomyopathy/AICD/pacer in place, past ETOH - no use since 04/2020 Last Myocardial Infarction Date:: 02/25/20 History of Any Multi-Drug Resistant Organisms: None Reported Past Surgical History: AICD, Appendectomy, Cardiac Ablation, Cholecystectomy, Heart Catheterization, Hernia Repair, Pacemaker Additional Past Surgical History / Comment(s): 04/27/21 lap cholecystectomy, L upper extremity venogram/thrombolysis/thrombectomy, Carly Fundiplication 08/2022 Past Anesthesia/Blood Transfusion Reactions: No Reported Reaction Type of Cardiac Device: Permanent Pacemaker, AICD Device Placement Date:: 05/01/20 Past Psychological History: Anxiety Additional Psychological History / Comment(s): Pt resides with his sister. Smoking Status: Former smoker Past Alcohol Use History: None Reported Additional Past Alcohol Use History / Comment(s): Pt started smoking in 1985 and quit 04/2020. He last drank alcohol 04/2020 Past Drug Use History: None Reported - Past Family History Mother Family Medical History: Cancer Additional Family Medical History / Comment(s): Cancer in jaw. Father Family Medical History: COPD Medications and Allergies Home Medications Medication Instructions Recorded Confirmed Type Albuterol Sulfate [Ventolin HFA] 2 puff INHALATION RT-Q6H PRN 04/28/22 09/16/22 History Atorvastatin [Lipitor] 80 mg PO DAILY 04/28/22 09/16/22 History Furosemide [Lasix] 20 mg PO DAILY 04/28/22 09/16/22 History Nitroglycerin Sl Tabs [Nitrostat] 0.4 mg SL Q5M PRN 04/28/22 09/16/22 History Apixaban [Eliquis] 5 mg PO BID #30 tab 05/14/22 09/16/22 Rx Sacubitril/Valsartan [Entresto 24 1 tab PO BID 05/25/22 09/16/22 History mg-26 mg Tablet] Cyanocobalamin [Vitamin B-12] 1,000 mcg PO DAILY tab 06/09/22 09/16/22 Rx Famotidine [Pepcid] 20 mg PO BID 90 Days #180 tab 06/09/22 09/16/22 Rx Levothyroxine Sodium [Synthroid] 50 mcg PO DAILY@0630 90 Days #90 06/09/22 09/16/22 Rx tab Fluticasone/Umeclidin/Vilanter 1 puff INHALATION RT-DAILY 06/28/22 09/16/22 History [Trelegy Ellipta 200-62.5-25] ALPRAZolam [Xanax] 0.25 mg PO TID PRN 07/02/22 09/16/22 History Budesonide/Formoterol Fumarate 2 puff INHALATION RT-BID 07/02/22 09/16/22 History [Symbicort 160-4.5 Mcg Inhaler] Carbidopa-Levodopa 10-100 mg 1 tab PO TID 07/02/22 09/16/22 History [Sinemet 10-100 mg] Melatonin 5 mg PO HS PRN 07/02/22 09/16/22 History Albuterol Nebulized [Ventolin 2.5 mg INHALATION RT-QID 30 Days 07/07/22 09/16/22 Rx Nebulized] #120 ml Ipratropium [place] 0.2 mg INHALATION RT-BID 07/11/22 09/16/22 History Sotalol [Betapace] 80 mg PO BID #60 tab 09/12/22 09/16/22 Rx Midodrine [ProAmatine] 10 mg PO AC-TID 30 Days #90 tab 09/13/22 09/16/22 Rx Acetaminophen Tab [Tylenol] 650 mg PO Q6H PRN 09/16/22 09/16/22 History predniSONE [Deltasone] See Taper PO DIRECTED 09/16/22 09/16/22 History Allergies Allergy/AdvReac Type Severity Reaction Status Date / Time No Known Allergies Allergy Verified 09/16/22 19:18 Physical Examination Vital signs: Vital Signs Temp Pulse Resp BP Pulse Ox 99.2 F 44 L 18 121/91 98 09/16/22 17:42 09/16/22 17:42 09/16/22 17:42 09/16/22 17:42 09/16/22 17:42 General appearance: no acute distress, alert Eyes: nonicteric ENT: oropharynx moist Neck: supple, no lymphadenopathy Effort: normal Auscultation: Bilateral: clear Percussion: Bilateral: not dull Tactile fremitus: Bilateral: normal Cardiovascular: regular rate and rhythm Gastrointestinal: normoactive bowel sounds Integumentary: normal Extremities: no cyanosis, no edema Musculoskeletal: no deformities, ROM normal Gait: normal gait normal mental status mood appropriate Results - Laboratory Findings CBC and BMP: 09/16/22 17:49 09/16/22 17:49 PT/INR, D-dimer PT 10.9 sec (9.0-12.0) 09/16/22 17:49 INR 1.0 (<1.2) 09/16/22 17:49 Abnormal lab findings: Abnormal Labs 09/16/22 09/16/22 17:49 17:49 WBC 11.5 H RBC 4.22 L Hgb 12.6 L Hct 38.6 L Neutrophils # 9.2 H BUN 21 H Glucose 101 H TSH 0.281 L - Diagnostic Findings Chest x-ray: report reviewed, image reviewed (No acute process) PFT's: report reviewed, image reviewed (ECG significant sinus bradycardia with a rate of 40/m with right bundle branch pattern) Assessment and Plan Assessment: Dizziness lightheadedness due to profound bradycardia, sotalol and Tikasyn on hold, consult EP COPD not in exacerbation Nonischemic cardiomyopathy chronic heart failure with reduced ejection fraction thought to be related to alcohol use Extensive use of smoking and nicotine Dyslipidemia Chronic A. fib and atrial flutter status post ablation Plan: As noted above cardiovascular services on consult Continue home medications Start tapering prednisone Further plan of care as per clinical response of patient Time with Patient: Greater than 30
[2022-09-17] MEDS: FUROSEMIDE 20 MG TAB PO SCH (11:45)
[2022-09-17] MEDS: FAMOTIDINE 20 MG TAB PO SCH ×2 (11:45→20:36)
[2022-09-17] MEDS: CYANOCOBALAMIN 500 MCG TAB PO SCH (11:45)
[2022-09-17] MEDS: CARBIDOPA-LEVODOPA 10-100 MG 1 EACH TAB PO SCH ×3 (11:48→21:49)
[2022-09-17] MEDS: SACUBITRIL/VALSARTAN 24 MG-26 MG TABLET PO SCH ×2 (11:48→21:49)
[2022-09-17] MEDS: ALBUTEROL NEBULIZED 2.5 MG/3 ML INHALATION SCH ×3 (12:06→20:09)
[2022-09-17] MEDS: MIDODRINE 5 MG TAB PO SCH ×2 (12:30→16:37)
[2022-09-17] MEDS: SOTALOL 80 MG TAB PO SCH ×2 (14:32→20:41)
[2022-09-17] MEDS: APIXABAN 5 MG TAB PO SCH ×2 (15:14→20:36)
--- NOTE | 2022-09-17 16:26 | P.CRDCN ---
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 He follows in the office with Dr. Thomas. He has had multiple admissions over the past 2 months. More recently he did h ave an AICD discharge 1 and was started on sotalol 80 mg twice a day with plans for EP study and possible ablation with Dr. Hester this coming week. He last took sotalol yesterday morning. He reports since he was discharged he has not felt any better. He gets lightheaded and dizzy if he is doing too much. Yesterday he was doing a nebulizer treatment and reports that he just woke up with the treatment and has mouth concerned he passed out. He is having epigastric pain that is a 6 out of 10. He also has been having issues with left arm tingling. EKG on arrival showed sinus bradycardia, right bundle branch block, 41 bpm. Chest x-ray with no acute findings. He had a limited echo with an ejection fraction of 4045 percent. He did have a prior heart catheterization February 2020 with no significant obstructive CAD. Troponins were negative 3. REVIEW OF SYSTEMS: No fever or chills. No cough or expectoration. No diaphoresis. Patient denies headache, dizziness, blurred vision, double vision. Patient denies any stomach discomfort. No nausea, vomiting. No hematochezia. No hematemesis. Denies any black stools or blood in his stools. Denies dysuria or hematuria. No muscle weakness or numbness. No chest pain or pressure. Reports feeling lightheaded and dizzy. Reports epigastric pain. PHYSICAL EXAMINATION: This is a 62-year-old male in no apparent distress at the time of my examination. HEENT: Head is atraumatic, normocephalic. Pupils are equal, round. Sclerae anicteric. Conjunctivae are clear. Mucous membranes of the mouth are moist. Neck is supple. There is no jugular venous distention. No carotid bruit is heard. CHEST EXAMINATION: Lungs are clear to auscultation. No chest wall tenderness is noted on palpation or with deep breathing. HEART EXAMINATION: Heart regular rate and rhythm. S1, S2 heard. No murmurs, gallops or rub. ABDOMEN: Soft, nontender. Bowel sounds are heard. EXTREMITIES: 2+ peripheral pulses with no evidence of peripheral edema and no ca lf tenderness noted. NEUROLOGIC EXAMINATION: Patient is awake, alert and oriented x3. IMPRESSION AND PLAN: Chest pain, troponin negative 3 Nonischemic cardiomyopathy Recent atrial flutter ablation History of AICD implantation Hypertension Chronic systolic heart failure with reduced ejection fraction, currently euvolemic PLAN: Patient with continued lightheadedness and dizziness and concerns for bradycardia, recommend AICD interrogation. Check orthostatic vital signs. May need to decrease entresto if postive orthostatic hypotension. We will continue to monitor patient with plans for EP study as scheduled on Monday or possibly Monday. Hold Sotalol. Will follow. I am dictating on behalf of Dr. Devin Browne's history/physical and assessment/plan. Past Medical History Past Medical History: Atrial Fibrillation, Heart Failure, COPD, Hyperlipidemia, Hypertension, Myocardial Infarction ([place]), Osteoarthritis (OA), Sleep Apnea/CPAP/BIPAP, Syncope Additional Past Medical History / Comment(s): see Dr Hester's H&P,P alex's,no mobility devices,uses O2 @ 2 L NC at hs and uses prn during the day(insurance is not covering home oxygen-pt purchased an oxygen machine that makes it's own oxygen off of [employer]),will be starting cpap in 3 weeks, DVT L subclavian/surgically removed, nonischemic cardiomyopathy/AICD/pacer in place, past ETOH - no use since 04/2020 Last Myocardial Infarction Date:: 02/25/20 History of Any Multi-Drug Resistant Organisms: None Reported Past Surgical History: AICD, Appendectomy, Cardiac Ablation, Cholecystectomy, Heart Catheterization, Hernia Repair, Pacemaker Additional Past Surgical History / Comment(s): 04/27/21 lap cholecystectomy, L upper extremity venogram/thrombolysis/thrombectomy, Carly Fundiplication 08/2022 Past Anesthesia/Blood Transfusion Reactions: No Reported Reaction Type of Cardiac Device: Permanent Pacemaker, AICD Device Placement Date:: 05/01/20 Past Psychological History: Anxiety Additional Psychological History / Comment(s): Pt resides with his sister. Smoking Status: Former smoker Past Alcohol Use History: None Reported Additional Past Alcohol Use History / Comment(s): Pt started smoking in 1985 and quit 04/2020. He last drank alcohol 04/2020 Past Drug Use History: None Reported - Past Family History Mother Family Medical History: Cancer Additional Family Medical History / Comment(s): Cancer in jaw. Father Family Medical History: COPD Medications and Allergies Home Medications Medication Instructions Recorded Confirmed Type Albuterol Sulfate [Ventolin HFA] 2 puff INHALATION RT-Q6H PRN 04/28/22 09/16/22 History Atorvastatin [Lipitor] 80 mg PO DAILY 04/28/22 09/16/22 History Furosemide [Lasix] 20 mg PO DAILY 04/28/22 09/16/22 History Nitroglycerin Sl Tabs [Nitrostat] 0.4 mg SL Q5M PRN 04/28/22 09/16/22 History Apixaban [Eliquis] 5 mg PO BID #30 tab 05/14/22 09/16/22 Rx Sacubitril/Valsartan [Entresto 24 1 tab PO BID 05/25/22 09/16/22 History mg-26 mg Tablet] Cyanocobalamin [Vitamin B-12] 1,000 mcg PO DAILY tab 06/09/22 09/16/22 Rx Famotidine [Pepcid] 20 mg PO BID 90 Days #180 tab 06/09/22 09/16/22 Rx Levothyroxine Sodium [Synthroid] 50 mcg PO DAILY@0630 90 Days #90 06/09/22 09/16/22 Rx tab Fluticasone/Umeclidin/Vilanter 1 puff INHALATION RT-DAILY 06/28/22 09/16/22 History [Trelegy Ellipta 200-62.5-25] ALPRAZolam [Xanax] 0.25 mg PO TID PRN 07/02/22 09/16/22 History Budesonide/Formoterol Fumarate 2 puff INHALATION RT-BID 07/02/22 09/16/22 History [Symbicort 160-4.5 Mcg Inhaler] Carbidopa-Levodopa 10-100 mg 1 tab PO TID 07/02/22 09/16/22 History [Sinemet 10-100 mg] Melatonin 5 mg PO HS PRN 07/02/22 09/16/22 History Albuterol Nebulized [Ventolin 2.5 mg INHALATION RT-QID 30 Days 07/07/22 09/16/22 Rx Nebulized] #120 ml Ipratropium [place] 0.2 mg INHALATION RT-BID 07/11/22 09/16/22 History Sotalol [Betapace] 80 mg PO BID #60 tab 09/12/22 09/16/22 Rx Midodrine [ProAmatine] 10 mg PO AC-TID 30 Days #90 tab 09/13/22 09/16/22 Rx Acetaminophen Tab [Tylenol] 650 mg PO Q6H PRN 09/16/22 09/16/22 History predniSONE [Deltasone] See Taper PO DIRECTED 09/16/22 09/16/22 History Allergies Allergy/AdvReac Type Severity Reaction Status Date / Time No Known Allergies Allergy Verified 09/16/22 19:18 Physical Exam Vitals: Vital Signs Temp Pulse Pulse Resp BP BP Pulse Ox 09/17/22 04:00 98.3 F 57 L 18 125/83 98 09/17/22 02:00 59 L 18 09/17/22 00:00 98.2 F 59 L 18 119/78 99 09/16/22 21:45 98.3 F 65 18 128/85 98 09/16/22 20:00 51 L 16 137/90 97 09/16/22 19:25 61 18 140/90 97 09/16/22 19:00 52 L 18 148/71 97 09/16/22 17:42 99.2 F 44 L 18 121/91 98 Intake and Output 09/16/22 09/17/22 09/17/22 22:59 06:59 14:59 Intake Total 300 Output Total 350 Balance -350 300 Intake: Oral 300 Output: Urine 350 Other: Voiding Method Urinal Urinal # Voids 0 Weight 77.111 kg Results 09/16/22 17:49 09/16/22 17:49 Cardiac Enzymes 09/16/22 09/16/22 09/16/22 Range/Units 17:49 17:49 20:26 AST 26 (17-59) U/L Troponin I <0.012 <0.012 (0.000-0.034) ng/mL 09/16/22 Range/Units 23:14 AST (17-59) U/L Troponin I <0.012 (0.000-0.034) ng/mL Coagulation 09/16/22 Range/Units 17:49 PT 10.9 (9.0-12.0) sec APTT 24.8 (22.0-30.0) sec CBC 09/16/22 Range/Units 17:49 WBC 11.5 H (3.8-10.6) k/uL RBC 4.22 L (4.30-5.90) m/uL Hgb 12.6 L (13.0-17.5) gm/dL Hct 38.6 L (39.0-53.0) % Plt Count 287 (150-450) k/uL Comprehensive Metabolic Panel 09/16/22 Range/Units 17:49 Sodium 139 (137-145) mmol/L Potassium 4.2 (3.5-5.1) mmol/L Chloride 104 (98-107) mmol/L Carbon Dioxide 24 (22-30) mmol/L BUN 21 H (9-20) mg/dL Creatinine 0.70 (0.66-1.25) mg/dL Glucose 101 H (74-99) mg/dL Calcium 9.2 (8.4-10.2) mg/dL AST 26 (17-59) U/L ALT 22 (4-49) U/L Alkaline Phosphatase 70 (38-126) U/L Total Protein 7.2 (6.3-8.2) g/dL Albumin 4.4 (3.5-5.0) g/dL Current Medications Generic Name Dose Route Start Last Admin Trade Name Danielq PRN Reason Stop Dose Admin Morphine Sulfate 3 mg 09/16/22 23:57 09/17/22 08:29 Morphine Sulfate 4 Mg/Ml Syringe IVP 3 mg Q3HR PRN Administration Pain/Discomfort Intake and Output 09/16/22 09/17/22 09/17/22 22:59 06:59 14:59 Intake Total 300 Output Total 350 Balance -350 300 Intake: Oral 300 Output: Urine 350 Other: Voiding Method Urinal Urinal # Voids 0 Weight 77.111 kg 09/16/22 17:49 09/16/22 17:49
[2022-09-17] MEDS ORDERED: IPRATROPIUM 0.5 MG/2.5 ML NEBU INHALATION SCH (20:00)
[2022-09-17] MEDS: SYMBICORT 160-4.5 MCG INHALER INHALATION SCH (20:09)
[2022-09-17] MEDS: ATORVASTATIN 80 MG TAB PO SCH (20:36)
[2022-09-18] MEDS: MORPHINE SULFATE 4 MG/ML SYRINGE IVP PRN ×6 (01:12→18:49)
[2022-09-18] MEDS: ALPRAZolam 0.25 MG TAB PO PRN ×2 (05:10→20:29)
[2022-09-18] MEDS: MIDODRINE 5 MG TAB PO SCH ×3 (06:25→17:27)
[2022-09-18] MEDS: LEVOTHYROXINE 50 MCG TAB PO SCH (06:25)
[2022-09-18] MEDS ORDERED: NON FORMULARY DRUG (Fluticasone/Umeclidin/Vilanter [Trelegy Ellipta 200-62.5-25] 1 EACH Bl INHALATION SCH (08:00)
[2022-09-18 08:19] LABS: Chol/HDL Ratio 2.99 Ratio
[2022-09-18] MEDS: SYMBICORT 160-4.5 MCG INHALER INHALATION SCH ×2 (08:36→20:42)
[2022-09-18] MEDS: IPRATROPIUM-ALBUTEROL 3 ML NEB INHALATION SCH ×4 (08:36→20:42)
[2022-09-18] MEDS: SACUBITRIL/VALSARTAN 24 MG-26 MG TABLET PO SCH (08:54)
[2022-09-18] MEDS: APIXABAN 5 MG TAB PO SCH ×2 (08:54→20:30)
[2022-09-18] MEDS: CARBIDOPA-LEVODOPA 10-100 MG 1 EACH TAB PO SCH ×3 (08:54→20:30)
[2022-09-18] MEDS: CYANOCOBALAMIN 500 MCG TAB PO SCH (08:55)
[2022-09-18] MEDS: FUROSEMIDE 20 MG TAB PO SCH (08:55)
[2022-09-18] MEDS: predniSONE 20 MG TAB PO SCH (08:55)
[2022-09-18] MEDS: FAMOTIDINE 20 MG TAB PO SCH ×2 (08:56→20:29)
[2022-09-18] MEDS: SOTALOL 80 MG TAB PO SCH (11:31)
--- NOTE | 2022-09-18 12:32 | P.PN ---
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 He follows in the office with Dr. Thomas. He has had multiple admissions over the past 2 months. More recently he did have an AICD discharge 1 and was started on sotalol 80 mg twice a day with plans for EP study and possible ablation with Dr. Hester this coming week. He last took sotalol yesterday morning. He reports since he was discharged he has not felt any better. He gets lightheaded and dizzy if he is doing too much. Yesterday he was doing a nebulizer treatment and reports that he just woke up with the treatment and has mouth concerned he passed out. He is having epigastric pain that is a 6 out of 10. He also has been having issues with left arm tingling. EKG on arrival showed sinus bradycardia, right bundle branch block, 41 bpm. Chest x-ray with no acute findings. He had a limited echo 09/07/22 with an ejection fraction of 4045 percent. He did have a prior heart catheterization February 2020 with no significant obstructive CAD. Troponins were negative 3. 09/18 Patient seen and examined. He reports feeling the same. No change in dizzy/lightheaded feeling, feels dizzy episodes constantly sitting or standing, no events seen on telemetry. Still having intermittent epigastric pain. PHYSICAL EXAMINATION: This is a 62-year-old male in no apparent distress at the time of my examination. HEENT: Head is atraumatic, normocephalic. Pupils are equal, round. CHEST EXAMINATION: Lungs are clear to auscultation. No chest wall tenderness is noted on palpation or with deep breathing. HEART EXAMINATION: Heart regular rate and rhythm. S1, S2 heard. No murmurs, gallops or rub. ABDOMEN: Soft, nontender. Bowel sounds are heard. EXTREMITIES: 2+ peripheral pulses with no evidence of peripheral edema and no calf tenderness noted. NEUROLOGIC EXAMINATION: Patient is awake, alert and oriented x3. IMPRESSION AND PLAN: Chest pain, troponin negative 3 Nonischemic cardiomyopathy, EF 40-45% Recent atrial flutter ablation History of AICD implantation Hypertension Chronic systolic heart failure with reduced ejection fraction, currently euvolemic Dizziness PLAN: AICD interrogation reviewed. Check orthostatic vital signs. Will hold Entrestro for now and see if his symptoms improve. We will continue to monitor patient with plans for EP study as scheduled on Monday or possibly Monday. Hold Sotalol. Will follow. I am dictating on behalf of Dr. Devin Browne's history/physical and assessment/plan. Objective - Vital Signs Vital signs: Vital Signs Temp 97.8 F 09/17/22 20:00 Pulse 73 09/18/22 08:55 Resp 18 09/18/22 04:00 BP 133/76 09/18/22 04:00 Pulse Ox 96 09/18/22 08:37 FiO2 Intake & Output 09/17/22 09/18/22 09/18/22 18:59 06:59 18:59 Intake Total 410 240 Output Total 525 200 240 Balance -115 -200 0 Intake: Oral 410 240 Output: Urine 525 200 240 Other: Voiding Method Urinal Urinal - Labs CBC & Chem 7: 09/16/22 17:49 09/16/22 17:49 Labs: Abnormal Lab Results - Last 24 Hours (Table) 09/17/22 Range/Units : HDL Cholesterol 36.80 L (40.00-60.00) mg/dL
--- NOTE | 2022-09-18 14:00 | P.PN ---
Subjective Progress Note Date: 09/18/22 Principal diagnosis: Dizziness lightheadedness due to profound bradycardia, sotalol and Tikasyn on hold, consult EP COPD not in exacerbation Nonischemic cardiomyopathy chronic heart failure with reduced ejection fraction thought to be related to alcohol use Extensive use of smoking and nicotine Dyslipidemia Chronic A. fib and atrial flutter status post ablation 09/18/2022, patient seen eval examined, patient is undergoing physical therapy, however patient continued to have symptoms of lightheadedness and dizziness, cardiovascular services following, denies any chest pain oxygenation stable saturation is mid 90s on supplemental oxygen with 2 L she remains afebrile heart rate did improve to 60s and 70s Patient seen eval reexamined, patient came into the hospital with lightheadedness and syncope found to have a heart rate of only 30s severe bradycardia, patient has been seen by EP service and recently discharged from the hospital, has been started on new beta shahram medicine, patient is status post ablation a week ago for A. fib RVR, Monday using nebulizer treatment almost ready to pass out. He has significant history of nonischemic cardiomyopathy thought to be related to alcohol in addition alcoholic liver disease, COPD, dyslipidemia, congestive heart failure with reduced ejection fraction, insomnia and generalized anxiety disorder patient was recently with a COPD exacerbation has been on tapering doses of prednisone on specific questioning denies any fevers chills denies any chest pain cough or sputum production, denies any loss of consciousness, denies any nausea vomiting diarrhea Objective - Vital Signs Vital signs: Vital Signs Temp 97.5 F L 09/18/22 12:00 Pulse 67 09/18/22 12:00 Resp 19 09/18/22 12:00 BP 110/76 09/18/22 12:00 Pulse Ox 99 09/18/22 12:00 FiO2 Intake & Output 09/17/22 09/18/22 09/18/22 18:59 06:59 18:59 Intake Total 410 480 Output Total 525 200 240 Balance -115 -200 240 Intake: Oral 410 480 Output: Urine 525 200 240 Other: Voiding Method Urinal Urinal Urinal - Exam General appearance: no acute distress, alert Eyes: nonicteric ENT: oropharynx moist Neck: supple, no lymphadenopathy Effort: normal Auscultation: Bilateral: clear Percussion: Bilateral: not dull Tactile fremitus: Bilateral: normal Cardiovascular: regular rate and rhythm Gastrointestinal: normoactive bowel sounds Integumentary: normal Extremities: no cyanosis, no edema Musculoskeletal: no deformities, ROM normal Gait: normal gait normal mental status mood appropriate - Labs CBC & Chem 7: 09/16/22 17:49 09/16/22 17:49 Labs: Abnormal Lab Results - Last 24 Hours (Table) 09/17/22 Range/Units 10:23 HDL Cholesterol 36.80 L (40.00-60.00) mg/dL Assessment and Plan Assessment: Dizziness lightheadedness due to profound bradycardia, sotalol and Tikasyn on hold, consult EP COPD not in exacerbation Nonischemic cardiomyopathy chronic heart failure with reduced ejection fraction thought to be related to alcohol use Extensive use of smoking and nicotine Dyslipidemia Chronic A. fib and atrial flutter status post ablation Plan: As noted above cardiovascular services on consult Continue home medications Start tapering prednisone Further plan of care as per clinical response of patient Time with Patient: Greater than 30
[2022-09-18] MEDS: MELATONIN 5 MG TABLET PO PRN (20:30)
[2022-09-18] MEDS: ATORVASTATIN 80 MG TAB PO SCH (20:30)
[2022-09-19] MEDS: MIDODRINE 5 MG TAB PO SCH ×3 (06:05→16:57)
[2022-09-19] MEDS: LEVOTHYROXINE 50 MCG TAB PO SCH (06:05)
[2022-09-19] MEDS: APIXABAN 5 MG TAB PO SCH ×3 (08:23→15:56)
[2022-09-19] MEDS: predniSONE 20 MG TAB PO SCH (08:23)
[2022-09-19] MEDS: FUROSEMIDE 20 MG TAB PO SCH (08:23)
[2022-09-19] MEDS: CARBIDOPA-LEVODOPA 10-100 MG 1 EACH TAB PO SCH ×3 (08:24→23:19)
[2022-09-19] MEDS: FAMOTIDINE 20 MG TAB PO SCH ×2 (08:24→20:41)
[2022-09-19] MEDS: CYANOCOBALAMIN 500 MCG TAB PO SCH (08:24)
[2022-09-19] MEDS: MORPHINE SULFATE 4 MG/ML SYRINGE IVP PRN ×4 (08:29→20:42)
[2022-09-19] MEDS: IPRATROPIUM-ALBUTEROL 3 ML NEB INHALATION SCH ×4 (09:01→22:38)
[2022-09-19] MEDS: SYMBICORT 160-4.5 MCG INHALER INHALATION SCH ×2 (09:01→22:38)
--- NOTE | 2022-09-19 11:48 | P.PN ---
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 He follows in the office with Dr. Thomas. He has had multiple admissions over the past 2 months. More recently he did espinoza ve an AICD discharge 1 and was started on sotalol 80 mg twice a day with plans for EP study and possible ablation with Dr. Hester this coming week. He last took sotalol yesterday morning. He reports since he was discharged he has not felt any better. He gets lightheaded and dizzy if he is doing too much. Yesterday he was doing a nebulizer treatment and reports that he just woke up with the treatment and has mouth concerned he passed out. He is having epigastric pain that is a 6 out of 10. He also has been having issues with left arm tingling. EKG on arrival showed sinus bradycardia, right bundle branch block, 41 bpm. Chest x-ray with no acute findings. He had a limited echo 09/07/22 with an ejection fraction of 4045 percent. He did have a prior heart catheterization February 2020 with no significant obstructive CAD. Troponins were negative 3. 09/18 Patient seen and examined. He reports feeling the same. No change in dizzy/lightheaded feeling, feels dizzy episodes constantly sitting or standing, no events seen on telemetry. Still having intermittent epigastric pain. 09/19/2022 Patient examined this morning at the bedside. Patient denies chest pain or pressure. He denies shortness of breath. Vital signs are stable. PHYSICAL EXAM: VITAL SIGNS: Reviewed. GENERAL: Well-developed in no acute distress. NECK: Supple. No JVD or thyromegaly LUNGS: Respirations even and unlabored. Lungs essentially clear to auscultation bilaterally. HEART: Regular rate and rhythm. S1 and S2 heard. EXTREMITIES: Normal range of motion. No clubbing or cyanosis. Peripheral pulses intact. No lower extremity edema ASSESSMENT: Chest pain, troponin negative 3 Nonischemic cardiomyopathy, EF 40-45% Recent atrial flutter ablation History of AICD implantation Hypertension Chronic systolic heart failure with reduced ejection fraction, currently euvolemic Dizziness History of ventricular tachycardia with AICD discharge PLAN: Continue current cardiac medications Entresto and Sotalol have been placed on hold Continue Eliquis. Hold tomorrow morning Patient scheduled for EP study and possible VT ablation tomorrow with Dr. Hester Further recommendations pending patient course Nurse practitioner note has been reviewed by physician. Signing provider agrees with the documented findings, assessment, and plan of care. Objective - Vital Signs Vital signs: Vital Signs Temp 97.4 F L 09/19/22 08:22 Pulse 66 09/19/22 09:18 Resp 18 09/19/22 08:22 BP 122/76 09/19/22 08:22 Pulse Ox 98 09/19/22 09:03 FiO2 Intake & Output 09/18/22 09/19/22 09/19/22 18:59 06:59 18:59 Intake Total 1280 540 110 Output Total 240 125 Balance 1040 415 110 Intake: Oral 1280 540 110 Output: Urine 240 125 Other: Voiding Method Urinal Urinal Urinal - Labs CBC & Chem 7: 09/16/22 17:49 09/16/22 17:49
[2022-09-19] MEDS: ATORVASTATIN 80 MG TAB PO SCH (20:41)
[2022-09-19] MEDS: ALPRAZolam 0.25 MG TAB PO PRN (23:19)
[2022-09-19] MEDS: MELATONIN 5 MG TABLET PO PRN (23:20)
--- NOTE | 2022-09-20 02:32 | PN ---
PROGRESS NOTE SUBJECTIVE: Phil Yap is waiting for procedure tomorrow for SVT. States he is scared to once his anxiety medications increased, is having trouble with severe anxiety, shortness of breath with any movement. He is afraid to move he says. He is scheduled for treatment tomorrow. OBJECTIVE: CARDIOVASCULAR: S1, S2. HEMATOLOGY: Negative for Homans. PSYCH: Fair mood and affect. CARDIOVASCULAR: Irregular rate and rhythm. ASSESSMENT: Anxiety, COPD, pulmonary hypertension, atrial fibrillation, RVR. Cardiac ablation probably tomorrow. Prognosis guarded. MMODL / IJN: [id number] /
[2022-09-20] MEDS: LEVOTHYROXINE 50 MCG TAB PO SCH (05:43)
[2022-09-20] MEDS: MIDODRINE 5 MG TAB PO SCH ×3 (05:43→16:53)
[2022-09-20] MEDS: MORPHINE SULFATE 4 MG/ML SYRINGE IVP PRN ×2 (05:44→22:02)
[2022-09-20] MEDS: CYANOCOBALAMIN 500 MCG TAB PO SCH (08:32)
[2022-09-20] MEDS: FUROSEMIDE 20 MG TAB PO SCH (08:32)
[2022-09-20] MEDS: FAMOTIDINE 20 MG TAB PO SCH ×2 (08:32→22:05)
[2022-09-20] MEDS: ALPRAZolam 0.5 MG TAB PO PRN ×2 (08:32→22:05)
[2022-09-20] MEDS: predniSONE 20 MG TAB PO SCH (08:32)
[2022-09-20] MEDS: SYMBICORT 160-4.5 MCG INHALER INHALATION SCH ×2 (08:41→21:26)
[2022-09-20] MEDS: IPRATROPIUM-ALBUTEROL 3 ML NEB INHALATION SCH ×4 (08:41→21:26)
--- NOTE | 2022-09-20 11:00 | P.PN ---
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 He follows in the office with Dr. Thomas. He has had multiple admissions over the past 2 months. More recently he did have an AICD discharge 1 and was started on sotalol 80 mg twice a day with plans for EP study and possible ablation with Dr. Hester this coming week. He last took sotalol yesterday morning. He reports since he was discharged he has not felt any better. He gets lightheaded and dizzy if he is doing too much. Yesterday he was doing a nebulizer treatment and reports that he just woke up with the treatment and has mouth concerned he passed out. He is having epigastric pain that is a 6 out of 10. He also has been having issues with left arm tingling. EKG on arrival showed sinus bradycardia, right bundle branch block, 41 bpm. Chest x-ray with no acute findings. He had a limited echo 09/07/22 with an ejection fraction of 4045 percent. He did have a prior heart catheterization February 2020 with no significant obstructive CAD. Troponins were negative 3. 09/18 Patient seen and examined. He reports feeling the same. No change in dizzy/lightheaded feeling, feels dizzy episodes constantly sitting or standing, no events seen on telemetry. Still having intermittent epigastric pain. 09/19/2022 Patient examined this morning at the bedside. Patient denies chest pain or pressure. He denies shortness of breath. Vital signs are stable. 09/20/2022 Patient examined this morning at the bedside. Patient denies chest pain or p ressure. He denies shortness of breath. Vital signs are stable. Patient's anticoagulation remains on hold this burning. He is scheduled for VT ablation today. PHYSICAL EXAM: VITAL SIGNS: Reviewed. GENERAL: Well-developed in no acute distress. NECK: Supple. No JVD or thyromegaly LUNGS: Respirations even and unlabored. Lungs essentially clear to auscultation bilaterally. HEART: Regular rate and rhythm. S1 and S2 heard. EXTREMITIES: Normal range of motion. No clubbing or cyanosis. Peripheral pulses intact. No lower extremity edema ASSESSMENT: Chest pain, troponin negative 3 Nonischemic cardiomyopathy, EF 40-45% Recent atrial flutter ablation History of AICD implantation Hypertension Chronic systolic heart failure with reduced ejection fraction, currently euvolemic Dizziness History of ventricular tachycardia with AICD discharge PLAN: Continue current cardiac medications Entresto and Sotalol have been placed on hold Hold Eliquis this morning Patient scheduled for EP study and possible VT ablation today with Dr. Hester Further recommendations pending patient course Nurse practitioner note has been reviewed by physician. Signing provider agrees with the documented findings, assessment, and plan of care. Objective - Vital Signs Vital signs: Vital Signs Temp 97.8 F 09/19/22 20:00 Pulse 58 L 09/20/22 08:54 Resp 16 09/20/22 08:54 BP 164/7 09/20/22 08:29 Pulse Ox 98 09/20/22 08:41 FiO2 Intake & Output 09/19/22 09/20/22 09/20/22 18:59 06:59 18:59 Intake Total 710 20 10 Output Total 350 Balance 710 -330 10 Intake: IV 10 20 10 Invasive Line 1 10 20 10 Oral 700 Output: Urine 350 Other: Voiding Method Urinal Urinal Urinal # Voids 2 - Labs CBC & Chem 7: 09/16/22 17:49 09/16/22 17:49
[2022-09-20] MEDS ORDERED: MIDAZOLAM 2 MG/2 ML VIAL ONE (13:00)
[2022-09-20] MEDS ORDERED: HYDROmorphone (PF) 1 MG/ML ONE (13:00)
[2022-09-20] MEDS ORDERED: IV FLUID CONTINUATION 1,000 ML IV ONE (13:00)
[2022-09-20] MEDS ORDERED: fentaNYL (PF) 50 MCG/ML 2 ML AMP ONE (13:00)
[2022-09-20] MEDS ORDERED: LIDOCAINE 1% INJ 10MG/ML (20 ML MDV) ONE (13:30)
[2022-09-20] MEDS ORDERED: LIDOCAINE 1% INJ 10MG/ML (20 ML MDV) SQ ONE (13:45)
[2022-09-20] MEDS ORDERED: IOPAMIDOL-370 100ML BTL INJ ONE (13:54)
[2022-09-20] MEDS ORDERED: HEPARIN SODIUM (1,000 UNIT/ML) 1,000 UNIT in SODIUM CHLORIDE 0.9% 1,000 ML IRRIGATION ONE (15:13)
[2022-09-20] MEDS: CARBIDOPA-LEVODOPA 10-100 MG 1 EACH TAB PO SCH ×2 (16:49→22:02)
--- NOTE | 2022-09-20 16:53 | P.EPPROC ---
- EP Procedure Note Electrophysiology Procedure Note: Diagnosis Recurrent tachycardia cycle length about 330 ms associated with ICD therapies and syncope Intracardiac electrograms very similar to electrograms during sinus rhythm Suspicion of bundle branch reentry as the mechanism of the tachycardia Underlying nonischemic cardio myopathy with a wide QRS of the right bundle- branch block type Final diagnosis Noninducible at EP study consistent with bundle branch reentry in the setting of nonischemic cardio myopathy with a wide QRS AV node function both antegrade and retrograde does not support SVT as the mechanism RF ablation of the proximal right bundle to eliminate the possibility of bundle- branch reentrant VT Plan Discontinue sotalol Restart ELIQUIS Details of the procedure Patient was brought to the EP lab in a fasting state. Written informed consent was obtained prior to the procedure Venous sheaths were placed in the left femoral vein and via these diagnostic catheters were positioned in the high right atrium His bundle area and right ventricle An EP study was performed via the device, single-chamber Medtronic ICD as well as 2 separate physicians in the right ventricle via the interim cardiac catheters Sinus cycle length 1027 ms, CA interval 150 ms, QRS 183 ms and QT 453 ms AH 88 and HV 39 ms AV node Wenckebach block 420 ms No delta waves, no antegrade slow pathway conduction VA Wenckebach block greater than 600 ms No inducible SVT The ICD was reprogrammed and the monitor zone was extended from 150 bpm to 214 b pm Extra stimulation at 2 drive trains with upto triple extra stimuli, long short sequences up to triple extrastimuli, burst stimulation performed via the device Later performed from the RV catheter from the RV septum and RV apex Isuprel used in high doses and EP testing performed No inducible ventricular tachycardia Based upon the intracardiac electrograms of the tachycardia which resulted in I CD shocks and ICD therapies and the following characteristics #1 intracardiac electrograms both near field and far field were almost identical to sinus rhythm #2 AV node function would not support a rapid atrial tachycardia with a cycle length of 330 milliseconds #3 nonischemic cardio myopathy with a wide QRS The most likely diagnosis of this tachycardia was bundle branch reentry ventricular tachycardia A long sheath was placed A mapping and ablation catheter, irrigated tip was placed The His bundle was mapped The right bundle was mapped RF ablation was applied at the level of the right bundle CA interval remained stable No evidence for AV block Good contact for some power applied Following that high dose Isuprel given and a detailed ventricular stimulation protocol performed once again No other inducible ventricular tachycardia is noted Or sheaths removed and venous punctures sealed with Vascade closure device Patient tolerated the procedure well without any acute competitions Left upper extremity venogram performed Occluded left axillary vein Patient has a history of subclavian DVT following device implant
[2022-09-20] MEDS: ATORVASTATIN 80 MG TAB PO SCH (22:05)
[2022-09-20] MEDS: APIXABAN 5 MG TAB PO SCH (22:05)
--- NOTE | 2022-09-21 01:26 | PN ---
PROGRESS NOTE SUBJECTIVE: This is a 62-year-old white male after symptomatic bradycardia, had pacemaker placed today. Had a cardiac ablation today, feeling better, 3-hour cardiac ablation apparently. OBJECTIVE: CARDIOVASCULAR: S1, S2. LUNGS: Clear. GI: Soft. HEMATOLOGY: Negative for Homans. ASSESSMENT: SVT, atrial fibrillation, RVR, COPD end-stage, pulmonary hypertension. Continue current medications. Status post cardiac ablation. Possible discharge home soon. MMODL / IJN: [id number] /
[2022-09-21] MEDS: MORPHINE SULFATE 4 MG/ML SYRINGE IVP PRN ×5 (06:55→22:59)
[2022-09-21] MEDS: MIDODRINE 5 MG TAB PO SCH ×3 (06:55→17:36)
[2022-09-21] MEDS: LEVOTHYROXINE 50 MCG TAB PO SCH (06:59)
[2022-09-21] MEDS: APIXABAN 5 MG TAB PO SCH ×2 (09:32→20:01)
[2022-09-21] MEDS: FUROSEMIDE 20 MG TAB PO SCH (09:32)
[2022-09-21] MEDS: METOPROLOL SUCCINATE (ER) 25 MG TAB.ER.24H PO SCH (09:32)
[2022-09-21] MEDS: CYANOCOBALAMIN 500 MCG TAB PO SCH (09:32)
[2022-09-21] MEDS: CARBIDOPA-LEVODOPA 10-100 MG 1 EACH TAB PO SCH ×3 (09:32→22:59)
[2022-09-21] MEDS: ALPRAZolam 0.5 MG TAB PO PRN ×2 (09:33→22:59)
[2022-09-21] MEDS: FAMOTIDINE 20 MG TAB PO SCH ×2 (09:33→20:01)
[2022-09-21] MEDS: IPRATROPIUM-ALBUTEROL 3 ML NEB INHALATION SCH ×4 (09:39→21:36)
[2022-09-21] MEDS: SYMBICORT 160-4.5 MCG INHALER INHALATION SCH ×2 (09:40→21:36)
[2022-09-21] MEDS: SACUBITRIL/VALSARTAN 24 MG-26 MG TABLET PO SCH ×2 (11:13→20:02)
--- NOTE | 2022-09-21 11:33 | P.PN ---
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 He follows in the office with Dr. Thomas. He has had multiple admissions over the past 2 months. More recently he did have an AICD discharge 1 and was started on sotalol 80 mg twice a day with plans for EP study and possible ablation with Dr. Hester this coming week. He last took sotalol yesterday morning. He reports since he was discharged he has not felt any better. He gets lightheaded and dizzy if he is doing too much. Yesterday he was doing a nebulizer treatment and reports that he just woke up with the treatment and has mouth concerned he passed out. He is having epigastric pain that is a 6 out of 10. He also has been having issues with left arm tingling. EKG on arrival showed sinus bradycardia, right bundle branch block, 41 bpm. Chest x-ray with no acute findings. He had a limited echo 09/07/22 with an ejection fraction of 4045 percent. He did have a prior heart catheterization February 2020 with no significant obstructive CAD. Troponins were negative 3. 09/18 Patient seen and examined. He reports feeling the same. No change in dizzy/lightheaded feeling, feels dizzy episodes constantly sitting or standing, no events seen on telemetry. Still having intermittent epigastric pain. 09/19/2022 Patient examined this morning at the bedside. Patient denies chest pain or pressure. He denies shortness of breath. Vital signs are stable. 09/20/2022 Patient examined this morning at the bedside. Patient denies chest pain or p ressure. He denies shortness of breath. Vital signs are stable. Patient's anticoagulation remains on hold this burning. He is scheduled for VT ablation today. Patient examined this morning at the bedside. Patient is status post EP study. No inducible VT. Patient found to have right bundle branch block reentry tachycardia. Patient denies chest pain or pressure. He denies shortness of breath. Vital signs are stable. PHYSICAL EXAM: VITAL SIGNS: Reviewed. GENERAL: Well-developed in no acute distress. NECK: Supple. No JVD or thyromegaly LUNGS: Respirations even and unlabored. Lungs essentially clear to auscultation bilaterally. HEART: Regular rate and rhythm. S1 and S2 heard. EXTREMITIES: Normal range of motion. No clubbing or cyanosis. Peripheral pulses intact. No lower extremity edema ASSESSMENT: Chest pain, troponin negative 3 Nonischemic cardiomyopathy, EF 40-45% Recent atrial flutter ablation History of AICD implantation Hypertension Chronic systolic heart failure with reduced ejection fraction, currently euvole chiara Dizziness History of ventricular tachycardia with AICD discharge Right bundle branch block reentry tachycardia. PLAN: Continue current cardiac medications Begin metoprolol succinate [address] Mir Holder Patient may be discharged home this afternoon from a cardiac standpoint and follow up on an outpatient basis Nurse practitioner note has been reviewed by physician. Signing provider agrees with the documented findings, assessment, and plan of care. Objective - Vital Signs Vital signs: Vital Signs Temp 98.3 F 09/21/22 04:00 Pulse 82 09/21/22 09:52 Resp 16 09/21/22 08:00 BP 131/72 09/21/22 08:00 Pulse Ox 97 09/21/22 09:41 FiO2 Intake & Output 09/20/22 09/21/22 09/21/22 18:59 06:59 18:59 Intake Total 1002 540 240 Output Total 550 1400 Balance 452 -860 240 Intake: IV 1002 Invasive Line 1 10 Oral 540 240 Output: Urine 550 1400 Other: Voiding Method Urinal Urinal Urinal # Voids 2 - Labs CBC & Chem 7: 09/16/22 17:49 09/16/22 17:49
[2022-09-21 13:40] VITALS: BMI 26.6
[2022-09-21 15:36] LABS: T4, Free (Free Thyroxine) 1.77 ng/dL (0.78-2.19)
[2022-09-21] MEDS: ATORVASTATIN 80 MG TAB PO SCH (20:01)
[2022-09-21] MEDS: MELATONIN 5 MG TABLET PO PRN (22:59)
[2022-09-22] MEDS: MORPHINE SULFATE 4 MG/ML SYRINGE IVP PRN ×4 (05:07→20:27)
[2022-09-22] MEDS: LEVOTHYROXINE 50 MCG TAB PO SCH (05:08)
[2022-09-22] MEDS: MIDODRINE 5 MG TAB PO SCH ×3 (05:22→16:37)
[2022-09-22] MEDS: FUROSEMIDE 20 MG TAB PO SCH (08:12)
[2022-09-22] MEDS: CYANOCOBALAMIN 500 MCG TAB PO SCH (08:13)
[2022-09-22] MEDS: APIXABAN 5 MG TAB PO SCH ×2 (08:13→20:27)
[2022-09-22] MEDS: CARBIDOPA-LEVODOPA 10-100 MG 1 EACH TAB PO SCH ×3 (08:13→21:40)
[2022-09-22] MEDS: SACUBITRIL/VALSARTAN 24 MG-26 MG TABLET PO SCH ×2 (08:13→20:28)
[2022-09-22] MEDS: FAMOTIDINE 20 MG TAB PO SCH ×2 (08:13→20:27)
[2022-09-22] MEDS: METOPROLOL SUCCINATE (ER) 25 MG TAB.ER.24H PO SCH (08:13)
[2022-09-22] MEDS: SYMBICORT 160-4.5 MCG INHALER INHALATION SCH ×2 (08:53→21:05)
[2022-09-22] MEDS: IPRATROPIUM-ALBUTEROL 3 ML NEB INHALATION SCH ×4 (08:53→21:05)
--- NOTE | 2022-09-22 13:06 | P.PN ---
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 He follows in the office with Dr. Thomas. He has had multiple admissions over the past 2 months. More recently he did espinoza ve an AICD discharge 1 and was started on sotalol 80 mg twice a day with plans for EP study and possible ablation with Dr. Hester this coming week. He last took sotalol yesterday morning. He reports since he was discharged he has not felt any better. He gets lightheaded and dizzy if he is doing too much. Yesterday he was doing a nebulizer treatment and reports that he just woke up with the treatment and has mouth concerned he passed out. He is having epigastric pain that is a 6 out of 10. He also has been having issues with left arm tingling. EKG on arrival showed sinus bradycardia, right bundle branch block, 41 bpm. Chest x-ray with no acute findings. He had a limited echo 09/07/22 with an ejection fraction of 4045 percent. He did have a prior heart catheterization February 2020 with no significant obstructive CAD. Troponins were negative 3. 09/18 Patient seen and examined. He reports feeling the same. No change in dizzy/lightheaded feeling, feels dizzy episodes constantly sitting or standing, no events seen on telemetry. Still having intermittent epigastric pain. 09/19/2022 Patient examined this morning at the bedside. Patient denies chest pain or pressure. He denies shortness of breath. Vital signs are stable. 09/20/2022 Patient examined this morning at the bedside. Patient denies chest pain or pressure. He denies shortness of breath. Vital signs are stable. Patient's anticoagulation remains on hold this burning. He is scheduled for VT ablation today. Patient examined this morning at the bedside. Patient is status post EP study. No inducible VT. Patient found to have right bundle branch block reentry tachycardia. Patient denies chest pain or pressure. He denies shortness of breath. Vital signs are stable. 09/22/2022 Patient examined this morning at the bedside. Patient denies chest pain or pressure. He denies shortness of breath. Vital signs are stable. PT OT has been consulted. Discharge plan includes possible ECF. PHYSICAL EXAM: VITAL SIGNS: Reviewed. GENERAL: Well-developed in no acute distress. NECK: Supple. No JVD or thyromegaly LUNGS: Respirations even and unlabored. Lungs essentially clear to auscultation bilaterally. HEART: Regular rate and rhythm. S1 and S2 heard. EXTREMITIES: Normal range of motion. No clubbing or cyanosis. Peripheral pulses intact. No lower extremity edema ASSESSMENT: Chest pain, troponin negative 3 Nonischemic cardiomyopathy, EF 40-45% Recent atrial flutter ablation History of AICD implantation Hypertension Chronic systolic heart failure with reduced ejection fraction, currently euvolemic Dizziness History of ventricular tachycardia with AICD discharge Right bundle branch block reentry tachycardia. PLAN: Continue current cardiac medications Patient is stable from a cardiac standpoint Patient may be discharged today from a cardiac standpoint Nurse practitioner note has been reviewed by physician. Signing provider agrees with the documented findings, assessment, and plan of care. Objective - Vital Signs Vital signs: Vital Signs Temp 98.2 F 09/22/22 11:43 Pulse 77 09/22/22 11:43 Resp 18 09/22/22 11:43 BP 105/67 09/22/22 11:43 Pulse Ox 99 09/22/22 11:43 FiO2 Intake & Output 09/21/22 09/22/22 09/22/22 18:59 06:59 18:59 Intake Total 476 220 Balance 476 220 Weight 77.111 kg Intake: Oral 476 220 Other: Voiding Method Urinal Toilet Toilet Urinal Urinal # Voids 1 - Labs CBC & Chem 7: 09/16/22 17:49 09/16/22 17:49 Labs: Abnormal Lab Results - Last 24 Hours (Table) 09/21/22 Range/Units 14:20 Free T3 pg/mL 2.7 L (2.8-5.3) pg/ml
[2022-09-22] MEDS: ATORVASTATIN 80 MG TAB PO SCH (20:27)
[2022-09-22] MEDS: MELATONIN 5 MG TABLET PO PRN (21:40)
[2022-09-22] MEDS: ALPRAZolam 0.5 MG TAB PO PRN (21:40)
--- NOTE | 2022-09-23 01:07 | PN ---
PROGRESS NOTE SUBJECTIVE: A 62-year-old white male, symptomatic bradycardia. [facility] to [facility]. OBJECTIVE: CARDIOVASCULAR: S1, S2. LUNGS: Clear. GI: Soft. HEMATOLOGY: Negative Homans. PSYCH: Fair mood and affect. NEUROLOGIC: Alert and oriented x3. OPHTHALMOLOGIC: Pupils equal, round, reactive. PLAN: Plan is to continue current treatments at the [facility] tomorrow for rehab. He has no place to live. He will need to find a place to live. Continue to wait for Cardiology clearance. MMODL / IJN: [id number] /
[2022-09-23] MEDS: MORPHINE SULFATE 4 MG/ML SYRINGE IVP PRN ×2 (02:49→11:37)
[2022-09-23] MEDS: LEVOTHYROXINE 50 MCG TAB PO SCH (06:10)
[2022-09-23] MEDS: MIDODRINE 5 MG TAB PO SCH ×3 (06:10→16:49)
[2022-09-23] MEDS: METOPROLOL SUCCINATE (ER) 25 MG TAB.ER.24H PO SCH (08:07)
[2022-09-23] MEDS: predniSONE 20 MG TAB PO SCH (08:07)
[2022-09-23] MEDS: CYANOCOBALAMIN 500 MCG TAB PO SCH (08:07)
[2022-09-23] MEDS: FAMOTIDINE 20 MG TAB PO SCH ×2 (08:07→20:29)
[2022-09-23] MEDS: ACETAMINOPHEN TAB 325 MG TAB PO PRN ×2 (08:08→15:38)
[2022-09-23] MEDS: SACUBITRIL/VALSARTAN 24 MG-26 MG TABLET PO SCH ×2 (08:08→20:29)
[2022-09-23] MEDS: CARBIDOPA-LEVODOPA 10-100 MG 1 EACH TAB PO SCH ×3 (08:08→20:29)
[2022-09-23] MEDS: APIXABAN 5 MG TAB PO SCH ×2 (08:08→20:29)
[2022-09-23] MEDS: FUROSEMIDE 20 MG TAB PO SCH (08:08)
[2022-09-23] MEDS: IPRATROPIUM-ALBUTEROL 3 ML NEB INHALATION SCH ×4 (08:44→20:48)
[2022-09-23] MEDS: SYMBICORT 160-4.5 MCG INHALER INHALATION SCH ×2 (08:44→20:48)
--- NOTE | 2022-09-23 13:04 | P.PN ---
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 He follows in the office with Dr. Thomas. He has had multiple admissions over the past 2 months. More recently he did have an AICD discharge 1 and was started on sotalol 80 mg twice a day with plans for EP study and possible ablation with Dr. Hester this coming week. He last took sotalol yesterday morning. He reports since he was discharged he has not felt any better. He gets lightheaded and dizzy if he is doing too much. Yesterday he was doing a nebulizer treatment and reports that he just woke up with the treatment and has mouth concerned he passed out. He is having epigastric pain that is a 6 out of 10. He also has been having issues with left arm tingling. EKG on arrival showed sinus bradycardia, right bundle branch block, 41 bpm. Chest x-ray with no acute findings. He had a limited echo 09/07/22 with an ejection fraction of 4045 percent. He did have a prior heart catheterization February 2020 with no significant obstructive CAD. Troponins were negative 3. 09/18 Patient seen and examined. He reports feeling the same. No change in dizzy/lightheaded feeling, feels dizzy episodes constantly sitting or standing, no events seen on telemetry. Still having intermittent epigastric pain. 09/19/2022 Patient examined this morning at the bedside. Patient denies chest pain or pressure. He denies shortness of breath. Vital signs are stable. 09/20/2022 Patient examined this morning at the bedside. Patient denies chest pain or p ressure. He denies shortness of breath. Vital signs are stable. Patient's anticoagulation remains on hold this burning. He is scheduled for VT ablation today. Patient examined this morning at the bedside. Patient is status post EP study. No inducible VT. Patient found to have right bundle branch block reentry tachycardia. Patient denies chest pain or pressure. He denies shortness of breath. Vital signs are stable. 09/22/2022 Patient examined this morning at the bedside. Patient denies chest pain or pressure. He denies shortness of breath. Vital signs are stable. PT OT has been consulted. Discharge plan includes possible ECF. 09/23/2022 Patient examined this morning at the bedside. Patient denies chest pain or pressure. He denies shortness of breath. Vital signs are stable. Patient is awaiting discharge to ECF. PHYSICAL EXAM: VITAL SIGNS: Reviewed. GENERAL: Well-developed in no acute distress. NECK: Supple. No JVD or thyromegaly LUNGS: Respirations even and unlabored. Lungs essentially clear to auscultation bilaterally. HEART: Regular rate and rhythm. S1 and S2 heard. EXTREMITIES: Normal range of motion. No clubbing or cyanosis. Peripheral pulses intact. No lower extremity edema ASSESSMENT: Chest pain, troponin negative 3 Nonischemic cardiomyopathy, EF 40-45% Recent atrial flutter ablation History of AICD implantation Hypertension Chronic systolic heart failure with reduced ejection fraction, currently euvolemic Dizziness History of ventricular tachycardia with AICD discharge Right bundle branch block reentry tachycardia. PLAN: Continue current cardiac medications Patient is stable from a cardiac standpoint Patient may be discharged today to ECF from a cardiac standpoint Nurse practitioner note has been reviewed by physician. Signing provider agrees with the documented findings, assessment, and plan of care. Objective - Vital Signs Vital signs: Vital Signs Temp 97.9 F 09/23/22 11:29 Pulse 78 09/23/22 11:58 Resp 20 09/23/22 11:29 BP 100/59 09/23/22 11:29 Pulse Ox 99 09/23/22 11:29 FiO2 Intake & Output 09/22/22 09/23/22 09/23/22 18:59 06:59 18:59 Intake Total 220 1554 Output Total 400 Balance 220 -400 1554 Weight 78.4 kg Intake: Oral 220 1554 Output: Urine 400 Other: Voiding Method Toilet Toilet Toilet Urinal Urinal Urinal # Voids 1 - Labs CBC & Chem 7: 09/16/22 17:49 09/16/22 17:49
[2022-09-23] MEDS: ALPRAZolam 0.5 MG TAB PO PRN (15:38)
[2022-09-23 20:24] VITALS: RESP 16
[2022-09-23] MEDS: ATORVASTATIN 80 MG TAB PO SCH (20:29)
--- NOTE | 2022-09-23 21:37 | DS ---
DISCHARGE SUMMARY DISCHARGE DIAGNOSES: 1. Bradycardia. 2. Chronic obstructive pulmonary disease. 3. Pulmonary hypertension. 4. [id number] myocardial infarction. 5. Defibrillator malfunction. 6. Anxiety. HOME MEDICATIONS: 1. Xanax 0.5 t.i.d. 2. Toprol-XL 12.5 daily. 3. DuoNeb 0.5-3 mg/3 mL q.i.d. 4. Lasix 20 mg daily. 5. Lipitor 80 mg daily. 6. Pepcid 20 b.i.d. 7. Synthroid 50 mcg daily. 8. B12 of 1000 mcg daily. 9. Trelegy Ellipta 200 mcg 1 puff q.a.m. 10.Melatonin 5 at bedtime. 11.ProAmatine 10 mg a.c. t.i.d. 12.Ventolin HFA 2 puffs q.4 p.r.n. shortness of breath. 13.Nitrostat 0.4 mg sublingual p.r.n. for chest pain. 14.Eliquis 5 mg b.i.d. 15.Entresto 24/26 b.i.d. 16.Carbidopa/levodopa 10/100 t.i.d. 17.Symbicort 160/4.5 two puffs b.i.d. 18.Acetaminophen p.r.n. for pain. CONDITION: Stable. PROGNOSIS: Guarded. Ambulate as tolerated. HOSPITAL COURSE: The patient came in with possible malfunction and shocking of his ACID device. He underwent a 3-hour procedure with Cardiology, who apparently found no significant abnormalities. He takes Xanax for anxiety 0.5 t.i.d., nebulizer treatments, and inhalers, and he wears oxygen 2 L at night. He has to wear his 2 L oxygen at night or he will not do well. So, he will be treated with 2 L oxygen when he sleeps at night or takes naps. He will go to a rehab center due to generalized weakness and no place to live. Prognosis is guarded. Diet as tolerated. MMODL / KIMN: [id number] /
[2022-09-24] MEDS: MIDODRINE 5 MG TAB PO SCH ×3 (06:20→17:02)
[2022-09-24] MEDS: LEVOTHYROXINE 50 MCG TAB PO SCH (06:20)
--- NOTE | 2022-09-24 06:43 | P.PN ---
Subjective Progress Note Date: 09/24/22 Principal diagnosis: Chest pain The patient is a 62-year-old gentleman who is known to our service from before with a history of nonischemic cardiomyopathy and status post AICD as well as paroxysmal atrial fibrillation/flutter status post ablation as well as hypertension and dyslipidemia was admitted to the hospital with chest discomfort and ruled out for acute coronary event. September 242022 The patient was seen and evaluated this morning. He is asymptomatic from the cardiovascular standpoint. He is hemodynamically stable. He is on oral anticoagulation for the atrial fibrillation. The process and the plan is for the patient to be discharged into an extended-care facility the next 24 hours. On examination he is stable. Pressure has been marginal. He does have regular rhythm with a systolic murmur at the right upper sternal border was clear breathing sounds bilaterally and no carotid bruit and no lower extremity edema noted Assessment Chest discomfort Nonischemic cardiomyopathy status post AICD Paroxysmal atrial fibrillation status post ablation Multiple comorbid conditions Plan Continue the current medical regimen Possible discharge in the next 24 hours Objective - Vital Signs Vital signs: Vital Signs Temp 98.3 F 09/23/22 20:00 Pulse 67 09/24/22 04:00 Resp 16 09/24/22 04:00 BP 102/67 09/24/22 04:00 Pulse Ox 98 09/24/22 04:00 FiO2 Intake & Output 09/23/22 09/23/22 09/24/22 06:59 18:59 06:59 Intake Total 2094 540 Output Total 400 Balance -400 4 540 Weight 78.4 kg Intake: Oral 2093 540 Output: Urine 400 Other: Voiding Method Toilet Toilet Toilet Urinal Urinal Urinal # Voids 4 1 - Labs CBC & Chem 7: 09/16/22 17:49 09/16/22 17:49
[2022-09-24] MEDS: IPRATROPIUM-ALBUTEROL 3 ML NEB INHALATION SCH ×3 (07:39→16:19)
[2022-09-24] MEDS: SYMBICORT 160-4.5 MCG INHALER INHALATION SCH (07:40)
[2022-09-24] MEDS: FAMOTIDINE 20 MG TAB PO SCH (09:06)
[2022-09-24] MEDS: CYANOCOBALAMIN 500 MCG TAB PO SCH (09:06)
[2022-09-24] MEDS: METOPROLOL SUCCINATE (ER) 25 MG TAB.ER.24H PO SCH (09:06)
[2022-09-24] MEDS: FUROSEMIDE 20 MG TAB PO SCH (09:06)
[2022-09-24] MEDS: APIXABAN 5 MG TAB PO SCH (09:07)
[2022-09-24] MEDS: CARBIDOPA-LEVODOPA 10-100 MG 1 EACH TAB PO SCH ×2 (09:07→15:49)
[2022-09-24] MEDS: predniSONE 20 MG TAB PO SCH (09:07)
[2022-09-24] MEDS: SACUBITRIL/VALSARTAN 24 MG-26 MG TABLET PO SCH (09:07)
[2022-09-24] MEDS: ALPRAZolam 0.5 MG TAB PO PRN (09:10)
[2022-09-24 09:21] VITALS: TEMP 97.5
[2022-09-24 12:23] VITALS: BP 108/66
[2022-09-24 12:27] VITALS: PULSE 72
--- NOTE | 2022-09-24 13:34 | PN ---
PROGRESS NOTE SUBJECTIVE: This is a 62-year-old white male, waiting for rehab placement. He stopped his pain medicine IV. Waiting for oral pain medications, which he says he does not need, so he is going to be off pain medicines, wait for rehab placement. OBJECTIVE: CARDIOVASCULAR: S1, S2. LUNGS: Clear. GI: Soft. HEMATOLOGY: Negative for Homans. VITAL SIGNS: His oxygen level is 94 on room air, blood pressure 113/65, temp 97.5, pulse 69, respiratory rate 16. ASSESSMENT: CHF, COPD, pulmonary hypertension, status post cardiac ablation and AICD rehab placement will be needed. Oxygen he wears at night will be continued. Continue with discharge planning. MMODL / IJN: [id number] /
== END 2022-09-24 17:26 | disposition home or self-care (01) | DRG 175 ==
LOC: EC 17:41 → 3SCARD 19:17
PROVIDERS: ADMIT Internal Medicine Sleep Medicine; ATTEND Internal Medicine Sleep Medicine
PROC: 02583ZZ Destruction of Conduction Mechanism, Percutaneous Approach (ICD-10-PCS; principal; 2022-09-20 12:30)
PROC: 4B02XTZ Measurement of Cardiac Defibrillator, External Approach (ICD-10-PCS; principal; 2022-09-20 12:30)
PROC: 4A0234Z Measurement of Cardiac Electrical Activity, Percutaneous Approach (ICD-10-PCS; principal; 2022-09-20 12:30)
PROC: 02K83ZZ Map Conduction Mechanism, Percutaneous Approach (ICD-10-PCS; principal; 2022-09-20 12:30)
DX: R00.1 Bradycardia, unspecified (principal); I47.20 Ventricular tachycardia, unspecified; J44.9 Chronic obstructive pulmonary disease, unspecified; I27.20 Pulmonary hypertension, unspecified; I45.10 Unspecified right bundle-branch block; E78.5 Hyperlipidemia, unspecified; I11.0 Hypertensive heart disease with heart failure; I25.10 Atherosclerotic heart disease of native coronary artery without angina pectoris; I25.2 Old myocardial infarction; I42.8 Other cardiomyopathies; I21.4 Non-ST elevation (NSTEMI) myocardial infarction; F41.9 Anxiety disorder, unspecified; T82.111A Breakdown (mechanical) of cardiac pulse generator (battery), initial encounter; Z99.81 Dependence on supplemental oxygen; G20 Parkinson's disease; I48.0 Paroxysmal atrial fibrillation; I48.20 Chronic atrial fibrillation, unspecified; I48.92 Unspecified atrial flutter; I50.22 Chronic systolic (congestive) heart failure; K70.9 Alcoholic liver disease, unspecified; Y71.2 Prosthetic and other implants, materials and accessory cardiovascular devices associated with adverse incidents; Z79.01 Long term (current) use of anticoagulants; Z79.51 Long term (current) use of inhaled steroids; Z79.890 Hormone replacement therapy; Z79.899 Other long term (current) drug therapy; Z82.5 Family history of asthma and other chronic lower respiratory diseases; Z86.718 Personal history of other venous thrombosis and embolism; Z86.79 Personal history of other diseases of the circulatory system; Z87.891 Personal history of nicotine dependence; Z71.3 Dietary counseling and surveillance; Z28.310 Unvaccinated for COVID-19; Z45.02 Encounter for adjustment and management of automatic implantable cardiac defibrillator
CPT/HCPCS: 36415; 71046; 80053; 80061; 83735; 84439; 84443; 84481; 84484; 85025; 85610; 85730; 93005; 93623; 93654; 94640; 94760; 96374; 99285

== ENCOUNTER 2022-10-18 10:08 | Observation (INO) | payer OTHER ==
[2022-10-18] MEDS ORDERED: HYDROmorphone 0.5 MG/0.5 ML SYRINGE IVP STA (10:34)
[2022-10-18 10:56] LABS: Basophils % (A) 0 %; Eosinophils # (A) 0.2 k/uL (0-0.7); Eosinophils % (A) 3 %; HCT 41.3 % (39.0-53.0); Lymphocytes # (A) 2.5 k/uL (1.0-4.8); Lymphocytes % (A) 33 %; MCH 30.1 pg (25.0-35.0); MCHC 31.5 g/dL (31.0-37.0); MCV 95.6 fL (80.0-100.0); Mean Platelet Volume 8.2; Monocytes # (A) 0.4 k/uL (0-1.0); Monocytes % (A) 5 %; Neutrophils # (A) 4.4 k/uL (1.3-7.7); Neutrophils % (A) 58 %; Platelet Count 233 k/uL (150-450); RBC 4.32 m/uL (4.30-5.90); RDW 13.6 % (11.5-15.5); WBC 7.5 k/uL (3.8-10.6)
[2022-10-18 11:08] LABS: Partial Thromboplastin Time 26.7 sec (22.0-30.0); Prothrombin Time 10.6 sec (9.0-12.0)
--- NOTE | 2022-10-18 11:21 | XR ---
EXAMINATION TYPE: XR chest 1V portable DATE OF EXAM: 10/18/2022 10:57 AM COMPARISON: Chest radiographs from 09/16/2022 TECHNIQUE: XR chest 1V portable Frontal view of the chest. CLINICAL INDICATION:Male, 62 years old with history of aicd firing; FINDINGS: Lungs/Pleura: There is no evidence of pleural effusion, focal consolidation, or pneumothorax. Pulmonary vascularity: Unremarkable. Heart/mediastinum: Cardiomediastinal silhouette is unremarkable. Single-lead cardiac conduction devic e overlying the left hemithorax with lead projecting over the right ventricle. Musculoskeletal: No acute osseous pathology. Other findings: None IMPRESSION: No acute cardiopulmonary disease/process.
[2022-10-18 11:22] LABS: ALT 17 U/L (4-49); AST 31 U/L (17-59); African American GFR (CKD) >90 (>60 ml/min/1.73 sqM); Albumin 4.2 g/dL (3.5-5.0); Alkaline Phosphatase 50 U/L (38-126); Anion Gap 6 mmol/L; Blood Urea Nitrogen 12 mg/dL (9-20); Calcium 9.1 mg/dL (8.4-10.2); Carbon Dioxide 25 mmol/L (22-30); Chloride 108 mmol/L (98-107); Glucose 94 mg/dL (74-99); Magnesium 1.9 mg/dL (1.6-2.3); Non-African American GFR(CKD) >90 (>60 ml/min/1.73 sqM); Sodium 139 mmol/L (137-145); Total Bilirubin 0.8 mg/dL (0.2-1.3); Total Protein 7.1 g/dL (6.3-8.2)
--- NOTE | 2022-10-18 11:40 | ED ---
General Adult HPI - General Chief complaint: Chest Pain Stated complaint: chest pain Time Seen by Provider: 10/18/22 10:22 Source: patient Mode of arrival: wheelchair Limitations: no limitations - History of Present Illness Initial comments: Dictation was produced using [employer] dictation software. please excuse any grammatical, word or spelling errors. Chief Complaint: 62-year-old male presents to the ER after AICD firing History of Present Illness: Dishes 62-year-old male who has past medical history of cardiomyopathy. He has a AICD placed for nonischemic cardiomyopathy. Patient states that he was in bed last night when 3:30 AM he reports that his AICD fired. He states that he went back to sleep and several hours later is as he fired again. Patient states her last 2-3 days he's been having some chest pressure. Nonradiating no associated diaphoresis or nausea. Patient reports that the pain is mild The ROS documented in this emergency department record has been reviewed and confirmed by me. Those systems with pertinent positive or negative responses have been documented in the HPI. All other systems are other negative and/or noncontributory. - Related Data Home Medications Medication Instructions Recorded Confirmed Albuterol Sulfate [Ventolin HFA] 2 puff INHALATION RT-Q6H PRN 04/28/22 10/18/22 Atorvastatin [Lipitor] 80 mg PO DAILY 04/28/22 10/18/22 Furosemide [Lasix] 20 mg PO DAILY 04/28/22 10/18/22 Nitroglycerin Sl Tabs [Nitrostat] 0.4 mg SL Q5M PRN 04/28/22 10/18/22 Sacubitril/Valsartan [Entresto 24 1 tab PO BID 05/25/22 10/18/22 mg-26 mg Tablet] Fluticasone/Umeclidin/Vilanter 1 puff INHALATION RT-DAILY 06/28/22 10/18/22 [Trelegy Ellipta 200-62.5-25] Budesonide/Formoterol Fumarate 2 puff INHALATION RT-BID 07/02/22 10/18/22 [Symbicort 160-4.5 Mcg Inhaler] Carbidopa-Levodopa 10-100 mg 1 tab PO TID 07/02/22 10/18/22 [Sinemet 10-100 mg] Melatonin 5 mg PO HS 07/02/22 10/18/22 Acetaminophen Tab [Tylenol] 650 mg PO Q6H PRN 09/16/22 10/18/22 ALPRAZolam [Xanax] 0.5 mg PO TID PRN 10/18/22 10/18/22 Albuterol Nebulized [Ventolin 2.5 mg INHALATION RT-QID 10/18/22 10/18/22 Nebulized] Sertraline [Zoloft] 50 mg PO DAILY 10/18/22 10/18/22 Previous Rx's Medication Instructions Recorded Apixaban [Eliquis] 5 mg PO BID #30 tab 05/14/22 Cyanocobalamin [Vitamin B-12] 1,000 mcg PO DAILY tab 06/09/22 Famotidine [Pepcid] 20 mg PO BID 90 Days #180 tab 06/09/22 Levothyroxine Sodium [Synthroid] 50 mcg PO DAILY@0630 90 Days #90 06/09/22 tab Midodrine [ProAmatine] 10 mg PO AC-TID 30 Days #90 tab 09/13/22 Metoprolol Succinate (ER) [Toprol 12.5 mg PO DAILY #30 tab 09/21/22 XL] Allergies Allergy/AdvReac Type Severity Reaction Status Date / Time No Known Allergies Allergy Verified 10/18/22 12:07 Review of Systems ROS Statement: Those systems with pertinent positive or pertinent negative responses have been documented in the HPI. ROS Other: All systems not noted in ROS Statement are negative. Past Medical History Past Medical History: Atrial Fibrillation, Heart Failure, COPD, Hyperlipidemia, Hypertension, Myocardial Infarction (MD), Osteoarthritis (OA), Sleep Apnea/CPAP/BIPAP, Syncope Additional Past Medical History / Comment(s): see Dr Hester's H&P,Parkinson's,no mobility devices,uses O2 @ 2 L NC at hs and uses prn during the day(insurance is not covering home oxygen-pt purchased an oxygen machine that makes it's own oxygen off of [employer]),will be starting cpap in 3 weeks, DVT L subclavian/surgically removed, nonischemic cardiomyopathy/AICD/pacer in place, past ETOH - no use since 04/2020 Last Myocardial Infarction Date:: 02/25/20 History of Any Multi-Drug Resistant Organisms: None Reported Past Surgical History: AICD, Appendectomy, Cardiac Ablation, Cholecystectomy, Heart Catheterization, Hernia Repair, Pacemaker Additional Past Surgical History / Comment(s): 04/27/21 lap cholecystectomy, L upper extremity venogram/thrombolysis/thrombectomy, Carly Fundiplication 08/2022 Past Anesthesia/Blood Transfusion Reactions: No Reported Reaction Type of Cardiac Device: Permanent Pacemaker, AICD Device Placement Date:: 05/01/20 Past Psychological History: Anxiety Smoking Status: Former smoker Past Alcohol Use History: None Reported Past Drug Use History: None Reported - Past Family History Mother Family Medical History: Cancer Additional Family Medical History / Comment(s): Cancer in jaw. Father Family Medical History: COPD General Exam - General Exam Comments Initial Comments: PHYSICAL EXAM: General Impression: Alert and oriented x3, not in acute distress HEENT: Normocephalic atraumatic, extra-ocular movements intact, pupils equal and reactive to light bilaterally, mucous membranes moist. Cardiovascular: Heart regular rate and rhythm Chest: Able to complete full sentences, no retractions, no tachypnea Abdomen: abdomen soft, non-tender, non-distended, no organomegaly Musculoskeletal: Pulses present and equal in all extremities, no peripheral edema Motor: no focal deficits noted Neurological: CN II-XII grossly intact, no focal motor or sensory deficits noted Skin: Intact with no visualized rashes Psych: Normal affect and mood Limitations: no limitations Course Vital Signs 10/18/22 10/18/22 10/18/22 10:17 10:40 11:10 Temperature 98.9 F Pulse Rate 69 62 58 L Respiratory 22 14 17 Rate Blood Pressure 135/79 141/90 144/76 O2 Sat by Pulse 94 L 97 93 L Oximetry 10/18/22 12:00 Temperature Pulse Rate 57 L Respiratory 16 Rate Blood Pressure 137/88 O2 Sat by Pulse 95 Oximetry - Reevaluation(s) Reevaluation #1: 10/18/22 12:13 Patient's AICD was interrogated. Since 09/20/2022 there has not been any treated V. fib or V. tach EKG Findings - EKG Comments: EKG Findings:: My EKG interpretation: Ventricular rate 56, sinus bradycardia,. Interval 50, QRS 154, QTC 454. No FL prolongation, no QTC prolongation, no ST or T-wave changes noted. EKG compared to and 2022 showing no changes. Overall, this EKG is unremarkable Medical Decision Making - Medical Decision Making Was pt. sent in by a medical professional or institution (, [facility], RN DOCUMENT [employer]PROVEMENT, urgent care, hospital, or group home...) When possible be specific @ -No Did you speak to anyone other than the patient for history (EMS, parent, family, police, friend...)? What history was obtained from this source @ -No Did you review nursing and triage notes (agree or disagree)? Why? @ -I reviewed and agree with nursing and triage notes Were old charts reviewed (outside hosp., previous admission, EMS record, old EKG, old radiological studies, urgent care reports/EKG's, group home records)? Report findings @ -Recent cardiology notes reviewed showing a history of AICD Differential Diagnosis (chest pain, altered mental status, abdominal pain women, abdominal pain men, vaginal bleeding, musculoskeletal, weakness, fever, dyspnea, syncope, headache, dizziness, GI bleed, back pain, seizure, CVA, palpatations, mental health)? @ -Differential Chest Pain: Stable Angina, Unstable Angina, STEMI, NSTEMI Aortic Dissection, Pneumothorax, Musculoskeletal, Esophageal Spasm GERD, Cholecystitis, Pancreatitis, Zoster, this is not meant to be an all-inclusive list. EKG interpreted by me (3pts min.). @ -See above X-rays interpreted by me (1pt min.). @ -Chest x-ray is nonacute CT interpreted by me (1pt min.). @ -None done U/S interpreted by me (1pt. min.). @ -None done What testing was considered but not performed or refused? (CT, X-rays, U/S, labs)? Why? @ -None What meds were considered but not given or refused? Why? @ -None Did you discuss the management of the patient with other professionals (professionals i.e. , [facility], RN DOCUMENT [employer], lab, RT, psych nurse, social work associate, brand strategist, teacher, immigration officer, continuous pillowcase cutter)? Give summary @ -Clinical presentation and AICD interrogation device results were discussed with Dr. Burgos for admission Was smoking cessation discussed for >3mins.? @ -No Was critical care preformed (if so, how long)? @ -No Were there social determinants of health that impacted care today? How? (Homelessness, low income, unemployed, alcoholism, drug addiction, transportation, low edu. Level, literacy, decrease access to med. care, correction, rehab)? @ -No Was there de-escalation of care discussed even if they declined (Discuss DNR or withdrawal of care, Hospice)? DNR status @ -No What co-morbidities impacted this encounter? (DM, HTN, Smoking, COPD, CAD, Cancer, CVA, ARF, Chemo, Hep., AIDS, mental health diagnosis, sleep apnea, morbid obesity)? @ -None Was patient admitted / discharged? Hospital course, mention meds given and route, prescriptions, significant lab abnormalities, going to OR and other pertinent info. @ -62-year-old male presents to the ER after chief complaint of his AICD firing. Vital signs stable. EKG is unremarkable. Cardiac device interrogated did not show any evidence of a trach shocks. Patient still complaining of pain. Labs unremarkable. X-rays negative. Patient be admitted for cardiology consultation for ongoing chest pain. Undiagnosed new problem with uncertain prognosis? @ -No Drug Therapy requiring intensive monitoring for toxicity (Heparin, Nitro, Insulin, Cardizem)? @ -No Were any procedures done? @ -No Diagnosis/symptom? Acute, or Chronic, or Acute on Chronic? Uncomplicated (without systemic symptoms) or Complicated (systemic symptoms)? @ -1 chest pain Side effects of treatment? @ -No Exacerbation, Progression, or Severe Exacerbation? @ -No Poses a threat to life or bodily function? How? (Chest pain, USA, MD, pneumonia, PE, COPD, DKA, ARF, appy, cholecystitis, CVA, Diverticulitis, Homicidal, Suicidal, threat to staff... and all critical care pts) @ -No - Lab Data Result diagrams: 10/18/22 10:40 10/18/22 10:40 Lab Results 10/18/22 10/18/22 10/18/22 Range/Units 10:40 10:40 10:40 WBC 7.5 (3.8-10.6) k/uL RBC 4.32 (4.30-5.90) m/uL Hgb 13.0 (13.0-17.5) gm/dL Hct 41.3 (39.0-53.0) % MCV 95.6 (80.0-100.0) fL MCH 30.1 (25.0-35.0) pg MCHC 31.5 (31.0-37.0) g/dL RDW 13.6 (11.5-15.5) % Plt Count 233 (150-450) k/uL MPV 8.2 Neutrophils % 58 % Lymphocytes % 33 % Monocytes % 5 % Eosinophils % 3 % Basophils % 0 % Neutrophils # 4.4 (1.3-7.7) k/uL Lymphocytes # 2.5 (1.0-4.8) k/uL Monocytes # 0.4 (0-1.0) k/uL Eosinophils # 0.2 (0-0.7) k/uL Basophils # 0.0 (0-0.2) k/uL PT 10.6 (9.0-12.0) sec INR 1.0 (<1.2) APTT 26.7 (22.0-30.0) sec Sodium 139 (137-145) mmol/L Potassium 4.7 (3.5-5.1) mmol/L Chloride 108 H (98-107) mmol/L Carbon Dioxide 25 (22-30) mmol/L Anion Gap 6 mmol/L BUN 12 (9-20) mg/dL Creatinine 0.69 (0.66-1.25) mg/dL Est GFR (CKD-EPI)AfAm >90 (>60 ml/min/1.73 sqM) Est GFR (CKD-EPI)NonAf >90 (>60 ml/min/1.73 sqM) Glucose 94 (74-99) mg/dL Calcium 9.1 (8.4-10.2) mg/dL Magnesium 1.9 (1.6-2.3) mg/dL Total Bilirubin 0.8 (0.2-1.3) mg/dL AST 31 (17-59) U/L ALT 17 (4-49) U/L Alkaline Phosphatase 50 (38-126) U/L Troponin I (0.000-0.034) ng/mL Total Protein 7.1 (6.3-8.2) g/dL Albumin 4.2 (3.5-5.0) g/dL 10/18/22 Range/Units 10:40 WBC (3.8-10.6) k/uL RBC (4.30-5.90) m/uL Hgb (13.0-17.5) gm/dL Hct (39.0-53.0) % MCV (80.0-100.0) fL MCH (25.0-35.0) pg MCHC (31.0-37.0) g/dL RDW (11.5-15.5) % Plt Count (150-450) k/uL MPV Neutrophils % % Lymphocytes % % Monocytes % % Eosinophils % % Basophils % % Neutrophils # (1.3-7.7) k/uL Lymphocytes # (1.0-4.8) k/uL Monocytes # (0-1.0) k/uL Eosinophils # (0-0.7) k/uL Basophils # (0-0.2) k/uL PT (9.0-12.0) sec INR (<1.2) APTT (22.0-30.0) sec Sodium (137-145) mmol/L Potassium (3.5-5.1) mmol/L Chloride (98-107) mmol/L Carbon Dioxide (22-30) mmol/L Anion Gap mmol/L BUN (9-20) mg/dL Creatinine (0.66-1.25) mg/dL Est GFR (CKD-EPI)AfAm (>60 ml/min/1.73 sqM) Est GFR (CKD-EPI)NonAf (>60 ml/min/1.73 sqM) Glucose (74-99) mg/dL Calcium (8.4-10.2) mg/dL Magnesium (1.6-2.3) mg/dL Total Bilirubin (0.2-1.3) mg/dL AST (17-59) U/L ALT (4-49) U/L Alkaline Phosphatase (38-126) U/L Troponin I <0.012 (0.000-0.034) ng/mL Total Protein (6.3-8.2) g/dL Albumin (3.5-5.0) g/dL Disposition Clinical Impression: Chest pain Disposition: ADMITTED IP TO THIS [facility] Condition: Fair Referrals: Felix Burgos MD [Primary Care Provider] - 1-2 days Decision Time: 13:00
[2022-10-18 12:38] LABS: Potassium 4.7 mmol/L (3.5-5.1)
[2022-10-18] MEDS ORDERED: NITROGLYCERIN SL TABS 0.4 MG TAB SUBLINGUAL PRN (13:28)
[2022-10-18] MEDS ORDERED: ALBUTEROL NEBULIZED 2.5 MG/3 ML INHALATION PRN (16:42)
[2022-10-18] MEDS ORDERED: ACETAMINOPHEN TAB 325 MG TAB PO PRN (16:42)
[2022-10-18] MEDS: HYDROmorphone 0.5 MG/0.5 ML SYRINGE IVP PRN ×2 (17:02→21:15)
[2022-10-18] MEDS: MIDODRINE 5 MG TAB PO SCH (19:05)
[2022-10-18] MEDS: BUDESONIDE 0.5 MG/2 ML NEBU INHALATION SCH (19:19)
[2022-10-18] MEDS: IPRATROPIUM-ALBUTEROL 3 ML NEB INHALATION SCH (19:19)
[2022-10-18] MEDS ORDERED: ALBUTEROL NEBULIZED 2.5 MG/3 ML INHALATION SCH (20:00)
[2022-10-18] MEDS: MELATONIN 5 MG TABLET PO SCH (21:13)
[2022-10-18] MEDS: CARBIDOPA-LEVODOPA 10-100 MG 1 EACH TAB PO SCH (21:13)
[2022-10-18] MEDS: FAMOTIDINE 20 MG TAB PO SCH (21:13)
[2022-10-18] MEDS: SACUBITRIL/VALSARTAN 24 MG-26 MG TABLET PO SCH (21:13)
[2022-10-18] MEDS: ALPRAZolam 0.5 MG TAB PO PRN (21:15)
--- NOTE | 2022-10-18 23:57 | HP ---
HISTORY AND PHYSICAL HISTORY OF PRESENT ILLNESS: Phil Yap is a white male, who comes in with shortness of breath, chest pain, atypical. Cardiology is consulted. States he was in bed last night at 3:30 a.m in the morning. AICD fires did arouse and fired again. He has been having chest pressure, shortness of breath, nausea, vomiting. Admitted for cardiac workup. MEDICINES: Reviewed. ALLERGIES: Negative. REVIEW OF SYSTEMS: A 14-point review of systems negative except as mentioned in HPI. PAST MEDICAL HISTORY: Atrial fibrillation, heart failure, COPD, dyslipidemia, hypertension, myocardial infarction, osteoarthritis, sleep apnea. PAST SURGICAL HISTORY: AICD, appendectomy, cardiac ablation, cholecystectomy, heart catheterization, hernia repair, pacemaker repair. FAMILY HISTORY: Mother, cancer of the jaw. Father, COPD. PHYSICAL EXAMINATION: VITAL SIGNS: Stable. Afebrile. Blood pressure is 130 to 140s over 70s to 80s, O2 of 93% to 97% on room air, pulse 67, temperature 98.9. CARDIOVASCULAR: S1, S2. LUNGS: Transmitted upper airway sounds. Scattered wheeze. HEMATOLOGY: Negative Homans. PSYCH: Fair mood and affect. NEUROLOGIC: Alert and oriented x3. OPHTHALMOLOGIC: Pupils equal, round, reactive. EKG shows no ST-T changes. EKG unremarkable. ASSESSMENT: Probable chronic obstructive pulmonary disease exacerbation, atypical chest pain, AICD firing, status post multiple ablations, valvular heart disease. Cardiology consult. Prognosis guarded. Continue home medicines. Updraft treatments for his breathing. For bad chronic obstructive pulmonary disease, wears oxygen 2 L at home. Prognosis guarded. MMODL / IJN: [id number] /
[2022-10-19] MEDS: HYDROmorphone 0.5 MG/0.5 ML SYRINGE IVP PRN ×4 (04:11→22:52)
[2022-10-19] MEDS: LEVOTHYROXINE 50 MCG TAB PO SCH (05:46)
[2022-10-19] MEDS: MIDODRINE 5 MG TAB PO SCH ×3 (05:46→18:46)
[2022-10-19] MEDS: IPRATROPIUM-ALBUTEROL 3 ML NEB INHALATION SCH ×4 (07:47→19:09)
[2022-10-19] MEDS: BUDESONIDE 0.5 MG/2 ML NEBU INHALATION SCH ×2 (07:48→19:09)
[2022-10-19] MEDS: CYANOCOBALAMIN 500 MCG TAB PO SCH (09:00)
[2022-10-19] MEDS: FUROSEMIDE 20 MG TAB PO SCH (09:00)
[2022-10-19] MEDS: METOPROLOL SUCCINATE (ER) 25 MG TAB.ER.24H PO SCH (09:00)
[2022-10-19] MEDS: SERTRALINE 50 MG TAB PO SCH (09:00)
[2022-10-19] MEDS: FAMOTIDINE 20 MG TAB PO SCH ×2 (09:01→21:35)
[2022-10-19] MEDS: SACUBITRIL/VALSARTAN 24 MG-26 MG TABLET PO SCH ×2 (09:01→21:35)
[2022-10-19] MEDS: ATORVASTATIN 80 MG TAB PO SCH (09:01)
[2022-10-19] MEDS: CARBIDOPA-LEVODOPA 10-100 MG 1 EACH TAB PO SCH ×3 (09:01→21:35)
[2022-10-19] MEDS: ASPIRIN 325 MG TAB PO SCH (09:01)
[2022-10-19] MEDS: ALPRAZolam 0.5 MG TAB PO PRN ×2 (09:08→21:35)
[2022-10-19 09:37] LABS: Chol/HDL Ratio 2.38 Ratio; LDL Cholesterol,Calculated 43.3 mg/dL (0.0-131.0); VLDL Calculation 16.42 mg/dL (5.00-40.00)
--- NOTE | 2022-10-19 09:42 | P.CRDCN ---
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 tach. We have been asked to evaluate the patient regarding chest pain. Patient states that he presented to the hospital due to AICD firing which she states occurred at 3:30 in the morning. He was able to go back to sleep and then he had another episode of the AICD firing. He also had some chest pressure. Upon review of the AICD interrogation, there has been no documented V. fib, V. tach and known defibrillation by his AICD. Patient denies having any further episodes of AICD firing since his arrival to the hospital. EKG sinus rhythm Chest x-ray no acute findings CBC and CMP unremarkable. INR 1. Troponin negative 3. Home cardiac medications: Eliquis 5 mg twice daily, Lipitor 80 mg daily, Lasix 20 mg daily, Toprol-XL 12.5 mg daily, Entresto 2426 milligrams twice daily, Nitrostat as needed, midodrine 10 mg 3 times daily. Cardiac catheterization 02/2020 revealed left dominant system, elevated filling pressures, no significant obstructive CAD. Echocardiogram 07/2022 EF 45%, mild concentric LVH, no significant pulmonary hypertension, global decrease in contractility, RV enlarged, mild mitral and tricuspid regurgitation, mitral annular calcification. REVIEW OF SYSTEMS: No fever or chills. No cough or expectoration. No diaphoresis. Patient denies headache, dizziness, blurred vision, double vision. Patient denies any stomach discomfort. No nausea, vomiting. No hematochezia. No hematemesis. Denies any black stools or blood in his stools. Denies dysuria or hematuria. No muscle weakness or numbness. No chest pain or pressure. Denies feeling lightheaded and dizzy. Denies epigastric pain. PHYSICAL EXAMINATION: This is a 62-year-old male in no apparent distress at the time of my examination. HEENT: Head is atraumatic, normocephalic. Pupils are equal, round. Sclerae anicteric. Conjunctivae are clear. Mucous membranes of the mouth are moist. Neck is supple. There is no jugular venous distention. No carotid bruit is heard. CHEST EXAMINATION: Lungs are clear to auscultation. No chest wall tenderness is noted on palpation or with deep breathing. HEART EXAMINATION: Heart regular rate and rhythm. S1, S2 heard. No murmurs, gallops or rub. ABDOMEN: Soft, nontender. Bowel sounds are heard. EXTREMITIES: 2+ peripheral pulses with no evidence of peripheral edema and no calf tenderness noted. NEUROLOGIC EXAMINATION: Patient is awake, alert and oriented x3. IMPRESSION AND PLAN: AICD firing as reported by patient. AICD interrogation did not reveal any discharges. Chest pain, acute coronary syndrome ruled out Nonischemic cardiomyopathy Recent atrial flutter ablation Recent VT ablation History of AICD implantation Hypertension Chronic systolic heart failure with reduced ejection fraction, currently euvolemic PLAN: Continue patient's home cardiac medications Continue monitoring overnight Obtain 2-D echocardiogram Anticipate probable discharge home tomorrow Thank you kindly for this consultation Nurse practitioner note has been reviewed, I agree with the documented findings and plan of care. Patient was seen and examined. Past Medical History Past Medical History: Atrial Fibrillation, Heart Failure, COPD, Hyperlipidemia, Hypertension, Myocardial Infarction (NV), Osteoarthritis (OA), Sleep Apnea/CPAP/BIPAP, Syncope Additional Past Medical History / Comment(s): see Dr Hester's H&P,Parkinson's,no mobility devices,uses O2 @ 2 L NC at hs and uses prn during t he day(insurance is not covering home oxygen-pt purchased an oxygen machine that makes it's own oxygen off of [employer]),will be starting cpap in 3 weeks, DVT L subclavian/surgically removed, nonischemic cardiomyopathy/AICD/pacer in place, past ETOH - no use since 04/2020 Last Myocardial Infarction Date:: 02/25/20 History of Any Multi-Drug Resistant Organisms: None Reported Past Surgical History: AICD, Appendectomy, Cardiac Ablation, Cholecystectomy, Heart Catheterization, Hernia Repair, Pacemaker Additional Past Surgical History / Comment(s): 04/27/21 lap cholecystectomy, L upper extremity venogram/thrombolysis/thrombectomy, Carly Fundiplication 08/2022 Past Anesthesia/Blood Transfusion Reactions: No Reported Reaction Type of Cardiac Device: Permanent Pacemaker, AICD Device Placement Date:: 05/01/20 Past Psychological History: Anxiety Additional Psychological History / Comment(s): Pt resides with his sister. Smoking Status: Former smoker Past Alcohol Use History: None Reported Additional Past Alcohol Use History / Comment(s): Pt started smoking in 1985 and quit 04/2020. He last drank alcohol 04/2020 Past Drug Use History: None Reported - Past Family History Mother Family Medical History: Cancer Additional Family Medical History / Comment(s): Cancer in jaw. Father Family Medical History: COPD Medications and Allergies Home Medications Medication Instructions Recorded Confirmed Type Albuterol Sulfate [Ventolin HFA] 2 puff INHALATION RT-Q6H PRN 04/28/22 10/18/22 History Atorvastatin [Lipitor] 80 mg PO DAILY 04/28/22 10/18/22 History Furosemide [Lasix] 20 mg PO DAILY 04/28/22 10/18/22 History Nitroglycerin Sl Tabs [Nitrostat] 0.4 mg SL Q5M PRN 04/28/22 10/18/22 History Apixaban [Eliquis] 5 mg PO BID #30 tab 05/14/22 10/18/22 Rx Sacubitril/Valsartan [Entresto 24 1 tab PO BID 05/25/22 10/18/22 History mg-26 mg Tablet] Cyanocobalamin [Vitamin B-12] 1,000 mcg PO DAILY tab 06/09/22 10/18/22 Rx Famotidine [Pepcid] 20 mg PO BID 90 Days #180 tab 06/09/22 10/18/22 Rx Levothyroxine Sodium [Synthroid] 50 mcg PO DAILY@0630 90 Days #90 06/09/22 10/18/22 Rx tab Fluticasone/Umeclidin/Vilanter 1 puff INHALATION RT-DAILY 06/28/22 10/18/22 History [Trelegy Ellipta 200-62.5-25] Budesonide/Formoterol Fumarate 2 puff INHALATION RT-BID 07/02/22 10/18/22 History [Symbicort 160-4.5 Mcg Inhaler] Carbidopa-Levodopa 10-100 mg 1 tab PO TID 07/02/22 10/18/22 History [Sinemet 10-100 mg] Melatonin 5 mg PO HS 07/02/22 10/18/22 History Midodrine [ProAmatine] 10 mg PO AC-TID 30 Days #90 tab 09/13/22 10/18/22 Rx Acetaminophen Tab [Tylenol] 650 mg PO Q6H PRN 09/16/22 10/18/22 History Metoprolol Succinate (ER) [Toprol 12.5 mg PO DAILY #30 tab 09/21/22 10/18/22 Rx XL] ALPRAZolam [Xanax] 0.5 mg PO TID PRN 10/18/22 10/18/22 History Albuterol Nebulized [Ventolin 2.5 mg INHALATION RT-QID 10/18/22 10/18/22 History Nebulized] Sertraline [Zoloft] 50 mg PO DAILY 10/18/22 10/18/22 History Allergies Allergy/AdvReac Type Severity Reaction Status Date / Time No Known Allergies Allergy Verified 10/18/22 12:07 Physical Exam Vitals: Vital Signs Temp Pulse Pulse Resp BP BP Pulse Ox 10/19/22 07:50 63 96 10/19/22 03:31 98.1 F 55 L 18 123/75 98 10/18/22 19:32 80 10/18/22 19:19 78 10/18/22 19:03 97.7 F 64 17 93/52 96 10/18/22 17:20 98.2 F 78 18 142/88 96 10/18/22 12:00 57 L 16 137/88 95 10/18/22 11:10 58 L 17 144/76 93 L 10/18/22 10:40 62 14 141/90 97 10/18/22 10:17 98.9 F 69 22 135/79 94 L Intake and Output 10/18/22 10/19/22 10/19/22 22:59 06:59 14:59 Output Total 375 Balance -375 Output: Urine 375 Other: # Voids 1 2 Weight 77.111 kg Results 10/18/22 10:40 10/18/22 10:40 Cardiac Enzymes 10/18/22 10/18/22 10/18/22 Range/Units 10:40 10:40 14:48 AST 31 (17-59) U/L Troponin I <0.012 <0.012 (0.000-0.034) ng/mL 10/18/22 Range/Units 18:16 AST (17-59) U/L Troponin I <0.012 (0.000-0.034) ng/mL Coagulation 10/18/22 Range/Units 10:40 PT 10.6 (9.0-12.0) sec APTT 26.7 (22.0-30.0) sec CBC 10/18/22 Range/Units 10:40 WBC 7.5 (3.8-10.6) k/uL RBC 4.32 (4.30-5.90) m/uL Hgb 13.0 (13.0-17.5) gm/dL Hct 41.3 (39.0-53.0) % Plt Count 233 (150-450) k/uL Comprehensive Metabolic Panel 10/18/22 Range/Units 10:40 Sodium 139 (137-145) mmol/L Potassium 4.7 (3.5-5.1) mmol/L Chloride 108 H (98-107) mmol/L Carbon Dioxide 25 (22-30) mmol/L BUN 12 (9-20) mg/dL Creatinine 0.69 (0.66-1.25) mg/dL Glucose 94 (74-99) mg/dL Calcium 9.1 (8.4-10.2) mg/dL AST 31 (17-59) U/L ALT 17 (4-49) U/L Alkaline Phosphatase 50 (38-126) U/L Total Protein 7.1 (6.3-8.2) g/dL Albumin 4.2 (3.5-5.0) g/dL Current Medications Generic Name Dose Route Start Last Admin Trade Name Freq PRN Reason Stop Dose Admin Acetaminophen 650 mg 10/18/22 16:42 Acetaminophen Tab 325 Mg Tab PO Q6H PRN Pain or Fever > 100.5 Albuterol Sulfate 2.5 mg 10/18/22 16:42 Albuterol Nebulized 2.5 Mg/3 Ml INHALATION RT-Q6H PRN Shortness Of Breath Albuterol/Ipratropium 3 ml 10/18/22 20:00 10/19/22 07:47 Ipratropium-Albuterol 3 Ml Neb INHALATION 3 ml RT-QID GONZÁLEZ Administration Alprazolam 0.5 mg 10/18/22 16:42 10/18/22 21:15 Alprazolam 0.5 Mg Tab PO 0.5 mg TID PRN Administration Anxiety Aspirin 325 mg 10/19/22 09:00 Aspirin 325 Mg Tab PO DAILY [facility] Atorvastatin Calcium 80 mg 10/19/22 09:00 Atorvastatin 80 Mg Tab PO DAILY [facility] Budesonide 0.5 mg 10/18/22 20:00 10/19/22 07:48 Budesonide 0.5 Mg/2 Ml Nebu INHALATION 0.5 mg RT-BID GONZÁLEZ Administration Carbidopa/Levodopa 1 each 10/18/22 22:00 10/18/22 21:13 Carbidopa-Levodopa 10-100 Mg 1 Each Tab PO 1 each TID GONZÁLEZ Administration Cyanocobalamin 1,000 mcg 10/19/22 09:00 Cyanocobalamin 500 Mcg Tab PO DAILY [facility] Famotidine 20 mg 10/18/22 21:00 10/18/22 21:13 Famotidine 20 Mg Tab PO 20 mg BID GONZÁLEZ Administration Furosemide 20 mg 10/19/22 09:00 Furosemide 20 Mg Tab PO DAILY [facility] Hydromorphone HCl 0.5 mg 10/18/22 16:44 10/19/22 04:11 Hydromorphone 0.5 Mg/0.5 Ml Syringe IVP 0.5 mg Q4HR PRN Administration Pain Levothyroxine Sodium 50 mcg 10/19/22 06:30 10/19/22 05:46 Levothyroxine 50 Mcg Tab PO 50 mcg DAILY@0630 [facility] Administration Melatonin 5 mg 10/18/22 21:00 10/18/22 21:13 Melatonin 5 Mg Tablet PO 5 mg HS [facility] Administration Metoprolol Succinate 12.5 mg 10/19/22 09:00 Metoprolol Succinate (Er) 25 Mg Tab.Er.24h PO DAILY [facility] Midodrine 10 mg 10/18/22 17:30 10/19/22 05:46 Midodrine 5 Mg Tab PO Not Given AC-TID [facility] Nitroglycerin 0.4 mg 10/18/22 13:28 Nitroglycerin Sl Tabs 0.4 Mg Tab SUBLINGUAL Q5M PRN Chest Pain Sacubitril/Valsartan 1 each 10/18/22 21:00 10/18/22 21:13 Sacubitril/Valsartan 24 Mg-26 Mg Tablet PO 1 each BID GONZÁLEZ Administration Sertraline HCl 50 mg 10/19/22 09:00 Sertraline 50 Mg Tab PO DAILY GONZÁLEZ Intake and Output 10/18/22 10/19/22 10/19/22 22:59 06:59 14:59 Output Total 375 Balance -375 Output: Urine 375 Other: # Voids 1 2 Weight 77.111 kg 10/18/22 10:40 10/18/22 10:40
--- NOTE | 2022-10-19 17:20 | CA ---
Transthoracic Echo Report Name: Phil Yap Age: 62 Gender: M : 1960 Exam Date: 10/19/2022 14:12 Exam Location: [facility] Ht (in): 67 Wt (lb): 170 Ordering Physician: Glendy Farmer Attending/Referring Phys: [id number], Darian Thermocouple Tester Jeremie Romero Procedure CPT: Indications: LVF Cardiac Hx: Technical Quality: Fair Contrast 1: Total Dose (mL): Contrast 2: Total Dose (mL): MEASUREMENTS (Male / Female) Normal Values 2D ECHO LV Diastolic Diameter PLAX 4.6 cm 4.2 - 5.9 / 3.9 - 5.3 cm LV Systolic Diameter PLAX 3.4 cm IVS Diastolic Thickness 1.5 cm 0.6 - 1.0 / 0.6 - 0.9 cm LVPW Diastolic Thickness 1.3 cm 0.6 - 1.0 / 0.6 - 0.9 cm LV Relative Wall Thickness 0.6 RV Internal Dim ED PLAX 3.8 cm LVOT Diameter 2.4 cm LV Diastolic Volume MOD BP 70.0 cm??? 67 - 155 / 56 - 104 cm??? LV Systolic Volume MOD BP 28.4 cm??? 22 - 58 / 19 - 49 cm??? LV Ejection Fraction MOD BP 59.4 % >= 55 % LV Diastolic Volume MOD 4C 77.4 cm??? LV Systolic Volume MOD 4C 30.0 cm??? LV Ejection Fraction MOD 4C 61.3 % LV Diastolic Length 4C 7.3 cm LV Systolic Length 4C 6.3 cm LV Diastolic Volume MOD 2C 65.4 cm??? LV Systolic Volume MOD 2C 25.8 cm??? LV Ejection Fraction MOD 2C 60.5 % LV Diastolic Length 2C 7.5 cm LV Systolic Length 2C 6.6 cm LA Volume 31.2 cm??? 18 - 58 / 22 - 52 cm??? DOPPLER AV Peak Velocity 96.9 cm/s AV Peak Gradient 3.8 mmHg LVOT Peak Velocity 64.9 cm/s LVOT Peak Gradient 1.7 mmHg AV Area Cont Eq pk 3.2 cm??? MV Peak Velocity 62.5 cm/s MV Peak Gradient 1.6 mmHg MV Mean Velocity 32.0 cm/s MV Mean Gradient 0.5 mmHg MV Velocity Time Integral 23.2 cm Mitral E Point Velocity 52.9 cm/s Mitral A Point Velocity 51.0 cm/s Mitral E to A Ratio 1.0 MV Deceleration Time 238.2 ms MV E' Velocity 7.1 cm/s Mitral E to MV E' Ratio 7.5 TR Peak Velocity 223.8 cm/s TR Peak Gradient 20.0 mmHg Right Ventricular Systolic Press 26.0 mmHg PV Peak Velocity 124.9 cm/s PV Peak Gradient 6.2 mmHg FINDINGS Left Ventricle Normal LV size and wall thickness.left ventricular ejection fraction is estimated at 45-50 %. Right Ventricle Normal right ventricular size. Pacemaker wire noted. Right Atrium Normal right atrial size. Left Atrium Normal left atrial size. Mitral Valve Structurally normal mitral valve. Aortic Valve Trileaflet aortic valve. No aortic valve stenosis or regurgitation. Tricuspid Valve Structurally normal tricuspid valve. Mild TR. Pulmonic Valve Pulmonic valve not well visualized. No pulmonic regurgitation. Pericardium Normal pericardium. Aorta Normal size aortic root and proximal ascending aorta. CONCLUSIONS Mild LV systolic dysfunction Atypical septal motion Previewed by: Denis Gallagher MD Dr. Suresh Tumma MD (Electronically Signed) Final Date: 19 October 2022 17:20
[2022-10-19] MEDS: MELATONIN 5 MG TABLET PO SCH (21:35)
[2022-10-20] MEDS: MIDODRINE 5 MG TAB PO SCH ×3 (06:36→18:54)
[2022-10-20] MEDS: LEVOTHYROXINE 50 MCG TAB PO SCH (06:36)
[2022-10-20] MEDS: SERTRALINE 50 MG TAB PO SCH (07:57)
[2022-10-20] MEDS: CYANOCOBALAMIN 500 MCG TAB PO SCH (07:57)
[2022-10-20] MEDS: ALPRAZolam 0.5 MG TAB PO PRN ×2 (07:57→20:52)
[2022-10-20] MEDS: FAMOTIDINE 20 MG TAB PO SCH ×2 (07:57→20:52)
[2022-10-20] MEDS: ATORVASTATIN 80 MG TAB PO SCH (07:58)
[2022-10-20] MEDS: ASPIRIN 325 MG TAB PO SCH (07:58)
[2022-10-20] MEDS: FUROSEMIDE 20 MG TAB PO SCH (07:58)
[2022-10-20] MEDS: CARBIDOPA-LEVODOPA 10-100 MG 1 EACH TAB PO SCH ×3 (07:58→20:52)
[2022-10-20] MEDS: METOPROLOL SUCCINATE (ER) 25 MG TAB.ER.24H PO SCH (07:58)
[2022-10-20] MEDS: SACUBITRIL/VALSARTAN 24 MG-26 MG TABLET PO SCH ×2 (07:58→20:52)
[2022-10-20] MEDS: IPRATROPIUM-ALBUTEROL 3 ML NEB INHALATION SCH ×4 (09:00→21:07)
[2022-10-20] MEDS: BUDESONIDE 0.5 MG/2 ML NEBU INHALATION SCH ×2 (09:00→21:08)
--- NOTE | 2022-10-20 11:53 | P.PN ---
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 tach. We have been asked to evaluate the patient regarding chest pain. Patient states that he presented to the hospital due to AICD firing which she states occurred at 3:30 in the morning. He was able to go back to sleep and then he had another episode of the AICD firing. He also had some chest pressure. Upon review of the AICD interrogation, there has been no documented V. fib, V. tach and known defibrillation by his AICD. Patient denies having any further episodes of AICD firing since his arrival to the hospital. EKG sinus rhythm Chest x-ray no acute findings CBC and CMP unremarkable. INR 1. Troponin negative 3. Home cardiac medications: Eliquis 5 mg twice daily, Lipitor 80 mg daily, Lasix 20 mg daily, Toprol-XL 12.5 mg daily, Entresto 2426 milligrams twice daily, Nitrostat as needed, midodrine 10 mg 3 times daily. Cardiac catheterization 02/2020 revealed left dominant system, elevated filling pressures, no significant obstructive CAD. Echocardiogram 07/2022 EF 45%, mild concentric LVH, no significant pulmonary hypertension, global decrease in contractility, RV enlarged, mild mitral and tricuspid regurgitation, mitral annular calcification. 10/20 patient is seen today in follow-up. He has been on telemetry and his had no events overnight, no shocks from his defibrillator. his heart rate has been in the 50s and 60s, blood pressure 120/80, pulse ox 98% on 2 L.echocardiogram reveals mild LV systolic dysfunction with EF of 45-50%, atypical septal motion. PHYSICAL EXAMINATION: This is a 62-year-old male in no apparent distress at the time of my examination. HEENT: Head is atraumatic, normocephalic. Pupils are equal, round. Sclerae anicteric. Conjunctivae are clear. Mucous membranes of the mouth are moist. Neck is supple. There is no jugular venous distention. No carotid bruit is heard. CHEST EXAMINATION: Lungs are clear to auscultation. No chest wall tenderness is noted on palpation or with deep breathing. HEART EXAMINATION: Heart regular rate and rhythm. S1, S2 heard. No murmurs, gallops or rub. ABDOMEN: Soft, nontender. Bowel sounds are heard. EXTREMITIES: 2+ peripheral pulses with no evidence of peripheral edema and no calf tenderness noted. NEUROLOGIC EXAMINATION: Patient is awake, alert and oriented x3. IMPRESSION AND PLAN: AICD firing as reported by patient. AICD interrogation did not reveal any discharges. Chest pain, acute coronary syndrome ruled out Nonischemic cardiomyopathy Recent atrial flutter ablation Recent VT ablation History of AICD implantation Hypertension Chronic systolic heart failure with reduced ejection fraction, currently euvolemic PLAN: Continue patient's home cardiac medications patient is cleared by cardiology for discharge home and may follow-up in the office with Dr. Thomas in one to 2 weeks. Nurse practitioner note has been reviewed, I agree with the documented findings and plan of care. Patient was seen and examined. Objective - Vital Signs Vital signs: Vital Signs Temp 98.1 F 10/20/22 01:27 Pulse 64 10/20/22 01:27 Resp 12 10/20/22 01:27 BP 104/66 10/20/22 01:27 Pulse Ox 97 10/20/22 01:27 FiO2 Intake & Output 10/19/22 10/20/22 10/20/22 18:59 06:59 18:59 Intake Total 118 Balance 118 Intake: Oral 118 Other: # Voids 2 2 - Labs CBC & Chem 7: 10/18/22 10:40 10/18/22 10:40
[2022-10-20] MEDS: HYDROmorphone 0.5 MG/0.5 ML SYRINGE IVP PRN (12:35)
[2022-10-20] MEDS: methylPREDNISolone SOD SUCCI 40 MG/ML 1 ML VIAL IV SCH (17:13)
[2022-10-20] MEDS: MELATONIN 5 MG TABLET PO SCH (20:52)
[2022-10-21] MEDS: methylPREDNISolone SOD SUCCI 40 MG/ML 1 ML VIAL IV SCH ×4 (00:52→22:50)
[2022-10-21] MEDS: HYDROmorphone 0.5 MG/0.5 ML SYRINGE IVP PRN ×4 (00:53→21:08)
[2022-10-21] MEDS: MIDODRINE 5 MG TAB PO SCH ×3 (06:35→17:30)
[2022-10-21] MEDS: LEVOTHYROXINE 50 MCG TAB PO SCH (06:35)
[2022-10-21] MEDS: SACUBITRIL/VALSARTAN 24 MG-26 MG TABLET PO SCH ×2 (08:31→21:04)
[2022-10-21] MEDS: CARBIDOPA-LEVODOPA 10-100 MG 1 EACH TAB PO SCH ×3 (08:31→21:04)
[2022-10-21] MEDS: SERTRALINE 50 MG TAB PO SCH (08:32)
[2022-10-21] MEDS: FAMOTIDINE 20 MG TAB PO SCH ×2 (08:32→21:04)
[2022-10-21] MEDS: ATORVASTATIN 80 MG TAB PO SCH (08:32)
[2022-10-21] MEDS: FUROSEMIDE 20 MG TAB PO SCH (08:32)
[2022-10-21] MEDS: ASPIRIN 325 MG TAB PO SCH (08:32)
[2022-10-21] MEDS: METOPROLOL SUCCINATE (ER) 25 MG TAB.ER.24H PO SCH (08:32)
[2022-10-21] MEDS: CYANOCOBALAMIN 500 MCG TAB PO SCH (08:32)
[2022-10-21] MEDS: IPRATROPIUM-ALBUTEROL 3 ML NEB INHALATION SCH ×4 (08:52→20:26)
[2022-10-21] MEDS: BUDESONIDE 0.5 MG/2 ML NEBU INHALATION SCH ×2 (08:52→20:27)
--- NOTE | 2022-10-21 13:04 | P.PN ---
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 tach. We have been asked to evaluate the patient regarding chest pain. Patient states that he presented to the hospital due to AICD firing which she states occurred at 3:30 in the morning. He was able to go back to sleep and then he had another episode of the AICD firing. He also had some chest pressure. Upon review of the AICD interrogation, there has been no documented V. fib, V. tach and known defibrillation by his AICD. Patient denies having any further episodes of AICD firing since his arrival to the hospital. EKG sinus rhythm Chest x-ray no acute findings CBC and CMP unremarkable. INR 1. Troponin negative 3. Home cardiac medications: Eliquis 5 mg twice daily, Lipitor 80 mg daily, Lasix 20 mg daily, Toprol-XL 12.5 mg daily, Entresto 2426 milligrams twice daily, Nitrostat as needed, midodrine 10 mg 3 times daily. Cardiac catheterization 02/2020 revealed left dominant system, elevated filling pressures, no significant obstructive CAD. Echocardiogram 07/2022 EF 45%, mild concentric LVH, no significant pulmonary hypertension, global decrease in contractility, RV enlarged, mild mitral and tricuspid regurgitation, mitral annular calcification. 10/20 patient is seen today in follow-up. He has been on telemetry and his had no events overnight, no shocks from his defibrillator. his heart rate has been in the 50s and 60s, blood pressure 120/80, pulse ox 98% on 2 L.echocardiogram reveals mild LV systolic dysfunction with EF of 45-50%, atypical septal motion. 10/21 Patient has had no events overnight. No defibrillator shock and no episodes of V. tach. Heart rate is in the 60s and 70s, blood pressure 118/64. PHYSICAL EXAMINATION: This is a 62-year-old male in no apparent distress at the time of my examination. HEENT: Head is atraumatic, normocephalic. Pupils are equal, round. Sclerae anicteric. Conjunctivae are clear. Mucous membranes of the mouth are moist. Neck is supple. There is no jugular venous distention. No carotid bruit is heard. CHEST EXAMINATION: Lungs are clear to auscultation. No chest wall tenderness is noted on palpation or with deep breathing. HEART EXAMINATION: Heart regular rate and rhythm. S1, S2 heard. No murmurs, gallops or rub. ABDOMEN: Soft, nontender. Bowel sounds are heard. EXTREMITIES: 2+ peripheral pulses with no evidence of peripheral edema and no calf tenderness noted. NEUROLOGIC EXAMINATION: Patient is awake, alert and oriented x3. IMPRESSION AND PLAN: AICD firing as reported by patient. AICD interrogation did not reveal any discharges. Chest pain, acute coronary syndrome ruled out Nonischemic cardiomyopathy Recent atrial flutter ablation Recent VT ablation History of AICD implantation Hypertension Chronic systolic heart failure with reduced ejection fraction, currently euvolemic PLAN: Continue patient's home cardiac medications patient is cleared by cardiology for discharge home and may follow-up in the office with Dr. Thomas in one to 2 weeks. Cardiology we will sign off and follow on an as-needed basis. Please reconsult for any concerns. Nurse practitioner note has been reviewed, I agree with the documented findings and plan of care. Patient was seen and examined. Objective - Vital Signs Vital signs: Vital Signs Temp 97.9 F 10/21/22 07:00 Pulse 74 10/21/22 12:51 Resp 18 10/21/22 08:00 BP 118/64 10/21/22 07:00 Pulse Ox 94 L 10/21/22 08:54 FiO2 Intake & Output 10/20/22 10/21/22 10/21/22 18:59 06:59 18:59 Output Total 375 Balance -375 Output: Urine 375 Other: # Voids 2 2 - Labs CBC & Chem 7: 10/18/22 10:40 10/18/22 10:40
[2022-10-21] MEDS: MELATONIN 5 MG TABLET PO SCH (21:04)
--- NOTE | 2022-10-21 22:08 | PN ---
PROGRESS NOTE DATE OF SERVICE: 10/20/2022 SUBJECTIVE: Phil Yap admitted in the hospital, 10/20/2022, for COPD exacerbation, tracheobronchitis. Still has atypical chest pain, severe anxiety, is unsure about his chest pain. He wants Cardiology to talk to him. OBJECTIVE: VITAL SIGNS: Reviewed. CARDIOVASCULAR: S1, S2. LUNGS: Mild wheeze x4. HEMATOLOGY: Negative for Homans. PSYCH: Fair mood and affect. ASSESSMENT: COPD exacerbation and atypical chest pain, tracheobronchitis, GERD. Continue current treatment. Prognosis guarded. Steroids updraft inhalers etc., current medications. Prognosis guarded. MMODL / IJN: [id number] /
--- NOTE | 2022-10-21 22:39 | PN ---
PROGRESS NOTE SUBJECTIVE: This is a 62-year-old with ischemic cardiomyopathy AICD, hypertension, CHF. States he is worried about his heart, he is having chest pain. Cardiology cleared in 3 days in a row. Troponins are negative. 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 Says he can listen to me. Says he has had no events overnight (per Cardiology no shocks). OBJECTIVE: VITAL SIGNS: Blood pressure 118/64, heart rate 60 to 70s beats. GENERAL: He appears anxious, alert. HEART: S1, S2. ABDOMEN: Soft. EXTREMITIES: No edema. PSYCH: Fair mood and affect. The patient with atypical chest pain probably musculoskeletal. Patient is refusing to laeve the hospital, something up with Cardiology, no ischemic cardiomyopathy, recent atrial flutter ablation, VT ablation, AICD, hypertension. Continue current medications. Prognosis guarded. Cardiology is not doing anything for the patient, "I am very upset with him. MMODL / IJN: [id number] /
[2022-10-21] MEDS: ALPRAZolam 0.5 MG TAB PO PRN (22:50)
[2022-10-22] MEDS: MIDODRINE 5 MG TAB PO SCH ×2 (05:47→14:34)
[2022-10-22] MEDS: LEVOTHYROXINE 50 MCG TAB PO SCH (05:47)
[2022-10-22 07:57] VITALS: RESP 18
[2022-10-22] MEDS: BUDESONIDE 0.5 MG/2 ML NEBU INHALATION SCH (08:14)
[2022-10-22] MEDS: IPRATROPIUM-ALBUTEROL 3 ML NEB INHALATION SCH ×3 (08:14→15:30)
[2022-10-22] MEDS: CARBIDOPA-LEVODOPA 10-100 MG 1 EACH TAB PO SCH (08:40)
[2022-10-22] MEDS: ATORVASTATIN 80 MG TAB PO SCH (08:40)
[2022-10-22] MEDS: FUROSEMIDE 20 MG TAB PO SCH (08:40)
[2022-10-22] MEDS: FAMOTIDINE 20 MG TAB PO SCH (08:40)
[2022-10-22] MEDS: ASPIRIN 325 MG TAB PO SCH (08:40)
[2022-10-22] MEDS: METOPROLOL SUCCINATE (ER) 25 MG TAB.ER.24H PO SCH (08:41)
[2022-10-22] MEDS: SERTRALINE 50 MG TAB PO SCH (08:41)
[2022-10-22] MEDS: SACUBITRIL/VALSARTAN 24 MG-26 MG TABLET PO SCH (08:41)
[2022-10-22] MEDS: CYANOCOBALAMIN 500 MCG TAB PO SCH (08:41)
[2022-10-22] MEDS: methylPREDNISolone SOD SUCCI 40 MG/ML 1 ML VIAL IV SCH (08:42)
[2022-10-22] MEDS: HYDROmorphone 0.5 MG/0.5 ML SYRINGE IVP PRN (08:51)
[2022-10-22] MEDS ORDERED: methylPREDNISolone 4 MG TAB TAPER PO SCH (09:00)
--- NOTE | 2022-10-22 12:15 | DS ---
DISCHARGE SUMMARY FINAL DIAGNOSES: 1. Chest pain, myocardial infarction, ruled out. 2. Automatic implantable cardioverter defibrillator shocks. 3. History of congestive heart failure. 4. Hypertension. 5. Cardiomyopathy. 6. Multiple medical issues. DISCHARGE DISPOSITION: The patient will be discharged in stable with guarded prognosis. Cardiology cleared the patient. HISTORY OF PRESENT ILLNESS: This is a 62-year-old gentleman with past medical history of multiple medical problems including chest pain and AICD shocks. Cardiology evaluated the patient, recommended the patient be discharged. PHYSICAL EXAMINATION: VITAL SIGNS: Stable. CARDIOVASCULAR: S1, S2. ABDOMEN: Soft. NERVOUS SYSTEM: No focal deficits. The patient will be discharged with plans to follow up with Dr. Burgos in the outpatient setting. DISCHARGE ADVICE AND MEDICATIONS: Please refer to the discharge medication reconciliation sheet for list of medications, add aspirin and Medrol Dosepak per Cardiology recommendations. MMODL / IJN: [id number] /
[2022-10-22] MEDS: ALPRAZolam 0.5 MG TAB PO PRN (14:45)
[2022-10-22 15:56] VITALS: BP 109/67; PULSE 68; TEMP 97.7
== END 2022-10-22 16:08 | disposition home or self-care (01) ==
LOC: EC 10:08 → 6NMEDSUR 13:29
PROVIDERS: ADMIT Family Medicine; ATTEND Family Medicine
DX: R07.89 Other chest pain (principal); I42.8 Other cardiomyopathies; Z95.810 Presence of automatic (implantable) cardiac defibrillator; J44.1 Chronic obstructive pulmonary disease with (acute) exacerbation; I11.0 Hypertensive heart disease with heart failure; I50.22 Chronic systolic (congestive) heart failure; I48.92 Unspecified atrial flutter; I48.91 Unspecified atrial fibrillation; I08.1 Rheumatic disorders of both mitral and tricuspid valves; I47.20 Ventricular tachycardia, unspecified; E78.5 Hyperlipidemia, unspecified; I25.2 Old myocardial infarction; G47.30 Sleep apnea, unspecified; M19.90 Unspecified osteoarthritis, unspecified site; G20 Parkinson's disease; F41.9 Anxiety disorder, unspecified; Z79.899 Other long term (current) drug therapy; Z79.51 Long term (current) use of inhaled steroids; Z79.01 Long term (current) use of anticoagulants; Z79.890 Hormone replacement therapy; Z87.891 Personal history of nicotine dependence; Z86.718 Personal history of other venous thrombosis and embolism; Z90.49 Acquired absence of other specified parts of digestive tract; Z87.898 Personal history of other specified conditions; Z98.890 Other specified postprocedural states; Z82.5 Family history of asthma and other chronic lower respiratory diseases; Z80.8 Family history of malignant neoplasm of other organs or systems
CPT/HCPCS: 96376 ×6; 96375; 96374; 99285; 36415; 94640 ×9; 94760 ×4; 93005; 93306; 80061; 80053; 83735; 84484; 85025; 85610; 85730; 71045; G0378 ×5; J2920 ×2; J7509; J1170 ×5

== ENCOUNTER 2022-10-25 20:05 | Observation (INO) | payer OTHER ==
--- NOTE | 2022-10-25 20:28 | ED ---
Chest Pain HPI - General Chief Complaint: Chest Pain Stated Complaint: Low Blood Pressure Time Seen by Provider: 10/25/22 20:19 Source: patient, RN notes reviewed, old records reviewed Mode of arrival: wheelchair Limitations: no limitations - History of Present Illness Initial Comments: This is a 62-year-old male to the emergency department for evaluation presents as an evaluation today of recent inpatient hospitalization. Patient presents today for weakness and low blood pressure. Patient was seen again by his primary care as well as reevaluation and despite taking blood pressure improvement medication, Midodrine, patient still feels off weak and shaky and not himself. Patient does have a ID for nonischemic cardiomyopathy significant. An despite inpatient recent inpatient placement and hospitalization patient is feeling weaker and weaker MD Complaint: chest pain, other (Weakness and low blood pressure) -: hour(s) Onset: during rest Pain Location: left chest Pain Radiation: none Severity: moderate Severity scale (1-10): 4 Quality: aching Consistency: constant Improves With: nothing Worsens With: nothing Context: recent illness Anginal Symptoms: diaphoresis, dyspnea Other Symptoms: palpitations Treatments Prior to Arrival: none - Related Data Home Medications Medication Instructions Recorded Confirmed Albuterol Sulfate [Ventolin HFA] 2 puff INHALATION RT-Q6H PRN 04/28/22 10/25/22 Atorvastatin [Lipitor] 80 mg PO DAILY 04/28/22 10/25/22 Nitroglycerin Sl Tabs [Nitrostat] 0.4 mg SL Q5M PRN 04/28/22 10/25/22 Fluticasone/Umeclidin/Vilanter 1 puff INHALATION RT-DAILY 06/28/22 10/25/22 [Trelegy Ellipta 200-62.5-25] Budesonide/Formoterol Fumarate 2 puff INHALATION RT-BID 07/02/22 10/25/22 [Symbicort 160-4.5 Mcg Inhaler] Carbidopa-Levodopa 10-100 mg 1 tab PO TID 07/02/22 10/25/22 [Sinemet 10-100 mg] Melatonin 5 mg PO HS 07/02/22 10/25/22 Acetaminophen Tab [Tylenol] 650 mg PO Q6H PRN 09/16/22 10/25/22 ALPRAZolam [Xanax] 0.5 mg PO TID PRN 10/18/22 10/25/22 Albuterol Nebulized [Ventolin 2.5 mg INHALATION RT-QID 10/18/22 10/25/22 Nebulized] Sertraline [Zoloft] 50 mg PO DAILY 10/18/22 10/25/22 methylPREDNISolone Dose Pack See Taper PO DIRECTED 10/25/22 10/25/22 [Medrol Dose Pack] Previous Rx's Medication Instructions Recorded Apixaban [Eliquis] 5 mg PO BID #30 tab 05/14/22 Cyanocobalamin [Vitamin B-12] 1,000 mcg PO DAILY tab 06/09/22 Famotidine [Pepcid] 20 mg PO BID 90 Days #180 tab 06/09/22 Levothyroxine Sodium [Synthroid] 50 mcg PO DAILY@0630 90 Days #90 06/09/22 tab Midodrine [ProAmatine] 10 mg PO AC-TID 30 Days #90 tab 09/13/22 Metoprolol Succinate (ER) [Toprol 12.5 mg PO DAILY #30 tab 09/21/22 XL] Aspirin 325 mg PO DAILY tab 10/21/22 Primidone [Mysoline] 25 mg PO TID 7 Days #21 tab 10/31/22 lisinopriL [Zestril] 2.5 mg PO DAILY 30 Days #30 tab 10/31/22 Allergies Allergy/AdvReac Type Severity Reaction Status Date / Time No Known Allergies Allergy Verified 10/25/22 22:39 Review of Systems ROS Statement: Those systems with pertinent positive or pertinent negative responses have been documented in the HPI. ROS Other: All systems not noted in ROS Statement are negative. EKG Findings - EKG Comments: EKG Findings:: EKG is sinus 70 AL 160 QRS 140 QTc 443 - EKG Results: EKG: interpreted by ERMD Past Medical History Past Medical History: Atrial Fibrillation, Heart Failure, COPD, Hyperlipidemia, Hypertension, Myocardial Infarction ([place]), Osteoarthritis (OA), Sleep Apnea/CPAP/BIPAP, Syncope Additional Past Medical History / Comment(s): see Dr Hester's H&P,Parkinson's,no mobility devices,uses O2 @ 2 L NC at hs and uses prn during the day(insurance is not covering home oxygen-pt purchased an oxygen machine that makes it's own oxygen off of [employer]),will be starting cpap in 3 weeks, DVT L subclavian/surgically removed, nonischemic cardiomyopathy/AICD/pacer in place, past ETOH - no use since 04/2020 Last Myocardial Infarction Date:: 02/25/20 History of Any Multi-Drug Resistant Organisms: None Reported Past Surgical History: AICD, Appendectomy, Cardiac Ablation, Cholecystectomy, Heart Catheterization, Hernia Repair, Pacemaker Additional Past Surgical History / Comment(s): 04/27/21 lap cholecystectomy, L upper extremity venogram/thrombolysis/thrombectomy, Carly Fundiplication 08/2022 Past Anesthesia/Blood Transfusion Reactions: No Reported Reaction Type of Cardiac Device: Permanent Pacemaker, AICD Device Placement Date:: 05/01/20 Past Psychological History: Anxiety Smoking Status: Former smoker Past Alcohol Use History: None Reported Past Drug Use History: None Reported - Past Family History Mother Family Medical History: Cancer Additional Family Medical History / Comment(s): Cancer in jaw. Father Family Medical History: COPD General Exam Limitations: no limitations General appearance: alert, in no apparent distress, anxious, lethargic Head exam: Present: atraumatic, normocephalic, normal inspection Eye exam: Present: normal appearance, PERRL, EOMI. Absent: scleral icterus, conjunctival injection, periorbital swelling ENT exam: Present: normal exam, mucous membranes moist Neck exam: Present: normal inspection. Absent: tenderness, meningismus, lymphadenopathy Respiratory exam: Present: normal lung sounds bilaterally. Absent: respiratory distress, wheezes, rales, rhonchi, stridor Cardiovascular Exam: Present: regular rate, normal rhythm, normal heart sounds. Absent: systolic murmur, diastolic murmur, rubs, gallop, clicks GI/Abdominal exam: Present: soft, normal bowel sounds. Absent: distended, tenderness, guarding, rebound, rigid Extremities exam: Present: normal inspection, full ROM, normal capillary refill. Absent: tenderness, pedal edema, joint swelling, calf tenderness Back exam: Present: normal inspection Neurological exam: Present: alert, oriented X3, CN II-XII intact Psychiatric exam: Present: normal affect, normal mood Skin exam: Present: warm, dry, intact, normal color. Absent: rash Course Vital Signs 10/25/22 10/25/22 10/25/22 20:09 20:40 20:50 Temperature 98.8 F Pulse Rate 74 65 Pulse Rate [ 68 Rough Rounder Machine ] Respiratory 20 18 Rate Blood Pressure 126/68 121/74 O2 Sat by Pulse 97 96 Oximetry 10/25/22 10/26/22 10/26/22 22:33 02:58 04:30 Temperature 97.8 F Pulse Rate 62 60 66 Pulse Rate [ Rough Rounder Machine ] Respiratory 17 18 18 Rate Blood Pressure 116/90 106/7 106/73 O2 Sat by Pulse 97 96 96 Oximetry 10/26/22 06:35 Temperature Pulse Rate 61 Pulse Rate [ Rough Rounder Machine ] Respiratory 18 Rate Blood Pressure 107/75 O2 Sat by Pulse 95 Oximetry - Reevaluation(s) Reevaluation #1: 10/25/22 22:08 Medical record is reviewed Reevaluation #2: 10/25/22 22:08 No change in symptoms here in the ER Reevaluation #3: 10/25/22 22:08 Patient informed results and questions answered 10/25/22 22:08 Imaging Chest x-ray negative for acute disease interpreted by me Reevaluation #4: 10/25/22 20:28 Was pt. sent in by a medical professional or institution? @ -no Did you speak to anyone other than the patient for history? @ -no Did you review nursing and triage notes? @ -agree Were old charts reviewed? @ -yes Differential Diagnosis? @ -prior EKG interpreted by me (3pts min.)? @ -yes X-rays interpreted by me (1pt min.)? @ -yes CT interpreted by me (1pt min.)? @ -no U/S interpreted by me (1pt. min.)? @ -no What testing was considered but not performed? (CT, X-rays, U/S, labs)? Why? @ -no What meds were considered but not given? Why? @ -no Did you discuss the management of the patient with other professionals? @ -no Did you reconcile home meds? @ -no Was smoking cessation discussed for >3mins.? @ -no Was critical care preformed (if so, how long)? @ -no Were there social determinants of health that impacted care today? How? (Homelessness, low income, unemployed, alcoholism, drug addiction, transportation, low edu. Level, literacy, decrease access to med. care, retirement, rehab)? @ -no Was there de-escalation of care discussed even if they declined? (Discuss DNR or withdrawal of care, Hospice)? @ -no What co-morbidities impacted this encounter? (DM, HTN, Smoking, COPD, CAD, Cancer, CVA, Hep., AIDS, mental health diagnosis, sleep apnea, morbid obesity)? @ -none Was patient admitted / discharged? @ -62 male to the emergency department for evaluation of low blood pressure weakness and not feeling well. Despite taking MIDODRINE at home with blood pressure improvement patient states he still feels like he is off. Patient will be admitted to continue management of symptoms Admitted Undiagnosed new problem with uncertain prognosis? @ -no Drug Therapy requiring intensive monitoring for toxicity (Heparin, Nitro, Insulin, Cardizem)? @ -no Were any procedures done? @ -no Diagnosis/symptom? @ -Weakness, labile blood pressures Acute, or Chronic, or Acute on Chronic? @ -acute Uncomplicated (without systemic symptoms) or Complicated (systemic symptoms)? @ -complicated Side effects of treatment? @ -no Exacerbation, Progression, or Severe Exacerbation] @ -no Poses a threat to life or bodily function? @ -yes Reevaluation #5: 10/25/22 20:27 Differential Chest Pain: Stable Angina, Unstable Angina, STEMI, NSTEMI Aortic Dissection, Pneumothorax, M usculoskeletal, Esophageal Spasm GERD, Cholecystitis, Pancreatitis, Zoster, this is not meant to be an all-inclusive list. - Consultations Consultation #1: Spoke with Dr. Burgos who agrees to admit the patient Chest Pain MDM - MDM 62 male to the emergency department for evaluation of low blood pressure weakness and not feeling well. Despite taking MIDODRINE at home with blood pressure improvement patient states he still feels like he is off. Patient will be admitted to continue management of symptoms Disposition Clinical Impression: Weakness, Hypotension, Atypical chest pain, Chest pain, Nonischemic cardiomyopathy, Abdominal pain, Pre-syncope Disposition: ADMITTED IP TO THIS HOSP Condition: Fair Is patient prescribed a controlled substance at d/c from ED?: No Time of Disposition: 22:00
[2022-10-25 21:10] LABS: Basophils % (A) 0 %; Eosinophils # (A) 0.2 k/uL (0-0.7); Eosinophils % (A) 2 %; HCT 41.7 % (39.0-53.0); HGB 13.6 gm/dL (13.0-17.5); Lymphocytes % (A) 32 %; MCH 29.9 pg (25.0-35.0); MCHC 32.6 g/dL (31.0-37.0); MCV 91.9 fL (80.0-100.0); Mean Platelet Volume 8.8; Monocytes # (A) 0.8 k/uL (0-1.0); Monocytes % (A) 8 %; Neutrophils % (A) 55 %; Platelet Count 290 k/uL (150-450); RBC 4.53 m/uL (4.30-5.90); RDW 13.7 % (11.5-15.5); WBC 9.2 k/uL (3.8-10.6)
--- NOTE | 2022-10-25 21:25 | XR ---
EXAMINATION TYPE: XR chest 2V DATE OF EXAM: 10/25/2022 9:12 PM COMPARISON: Chest radiographs from; 10/18/2022 TECHNIQUE: XR chest 2V Frontal and lateral views of the chest. CLINICAL INDICATION:Male, 62 years old with history of Chest Pain; FINDINGS: Lungs/Pleura: There is no evidence of pleural effusion, focal consolidation, or pneumothorax. Pulmonary vascularity: Unremarkable. Heart/mediastinum: Cardiomediastinal silhouette is unremarkable. Single-lead cardiac conduction devic e overlying the left hemithorax with lead projecting over the right ventricle. Musculoskeletal: No acute osseous pathology. IMPRESSION: No acute cardiopulmonary disease/process.
[2022-10-25 21:27] LABS: Partial Thromboplastin Time 26.7 sec (22.0-30.0); Prothrombin Time 10.6 sec (9.0-12.0)
[2022-10-25 21:34] LABS: ALT 49 U/L (4-49); AST 36 U/L (17-59); African American GFR (CKD) >90 (>60 ml/min/1.73 sqM); Albumin 4.2 g/dL (3.5-5.0); Alkaline Phosphatase 88 U/L (38-126); Anion Gap 8 mmol/L; Blood Urea Nitrogen 18 mg/dL (9-20); Calcium 9.2 mg/dL (8.4-10.2); Carbon Dioxide 24 mmol/L (22-30); Chloride 106 mmol/L (98-107); Glucose 92 mg/dL (74-99); Magnesium 2.2 mg/dL (1.6-2.3); Non-African American GFR(CKD) >90 (>60 ml/min/1.73 sqM); Potassium 4.4 mmol/L (3.5-5.1); Sodium 138 mmol/L (137-145); Total Bilirubin 0.6 mg/dL (0.2-1.3); Total Protein 7.2 g/dL (6.3-8.2)
[2022-10-25] MEDS ORDERED: ONDANSETRON 4 MG/2 ML VIAL IVP PRN (22:13)
[2022-10-25] MEDS ORDERED: NALOXONE 0.4 MG/ML 1 ML VIAL IV PRN (22:13)
[2022-10-26] MEDS: HYDROmorphone 0.5 MG/0.5 ML SYRINGE IVP PRN ×5 (01:10→21:06)
[2022-10-26 06:54] LABS: Basophils % (A) 0 %; Eosinophils # (A) 0.2 k/uL (0-0.7); Eosinophils % (A) 3 %; HCT 39.9 % (39.0-53.0); Lymphocytes % (A) 33 %; MCH 30.1 pg (25.0-35.0); MCHC 32.5 g/dL (31.0-37.0); MCV 92.5 fL (80.0-100.0); Mean Platelet Volume 8.4; Monocytes # (A) 0.6 k/uL (0-1.0); Monocytes % (A) 6 %; Neutrophils # (A) 5.2 k/uL (1.3-7.7); Neutrophils % (A) 56 %; Platelet Count 275 k/uL (150-450); RBC 4.32 m/uL (4.30-5.90); RDW 13.6 % (11.5-15.5); WBC 9.3 k/uL (3.8-10.6)
[2022-10-26 07:05] LABS: ALT 63 U/L (4-49); AST 35 U/L (17-59); African American GFR (CKD) >90 (>60 ml/min/1.73 sqM); Albumin 3.8 g/dL (3.5-5.0); Alkaline Phosphatase 76 U/L (38-126); Anion Gap 7 mmol/L; Blood Urea Nitrogen 17 mg/dL (9-20); Calcium 8.8 mg/dL (8.4-10.2); Carbon Dioxide 27 mmol/L (22-30); Chloride 106 mmol/L (98-107); Glucose 92 mg/dL (74-99); Magnesium 2.2 mg/dL (1.6-2.3); Non-African American GFR(CKD) >90 (>60 ml/min/1.73 sqM); Phosphorus 3.4 mg/dL (2.5-4.5); Potassium 4.1 mmol/L (3.5-5.1); Sodium 140 mmol/L (137-145); Total Bilirubin 0.7 mg/dL (0.2-1.3); Total Protein 6.4 g/dL (6.3-8.2)
[2022-10-26] MEDS ORDERED: ACETAMINOPHEN TAB 325 MG TAB PO PRN (07:27)
[2022-10-26] MEDS: CYANOCOBALAMIN 500 MCG TAB PO SCH (08:30)
[2022-10-26] MEDS: ASPIRIN 325 MG TAB PO SCH (08:30)
[2022-10-26] MEDS: CARBIDOPA-LEVODOPA 10-100 MG 1 EACH TAB PO SCH ×3 (08:30→21:04)
[2022-10-26] MEDS: MIDODRINE 5 MG TAB PO SCH ×3 (08:30→16:22)
[2022-10-26] MEDS: APIXABAN 5 MG TAB PO SCH ×2 (08:30→21:04)
[2022-10-26] MEDS: FUROSEMIDE 20 MG TAB PO SCH (08:31)
[2022-10-26] MEDS: FAMOTIDINE 20 MG TAB PO SCH ×2 (08:31→21:04)
[2022-10-26] MEDS: SERTRALINE 50 MG TAB PO SCH (08:31)
[2022-10-26] MEDS: METOPROLOL SUCCINATE (ER) 25 MG TAB.ER.24H PO SCH (08:31)
[2022-10-26] MEDS: ATORVASTATIN 80 MG TAB PO SCH (08:36)
[2022-10-26] MEDS: ALBUTEROL NEBULIZED 2.5 MG/3 ML INHALATION SCH ×4 (11:10→19:40)
[2022-10-26] MEDS: SYMBICORT 160-4.5 MCG INHALER INHALATION SCH ×2 (11:10→19:40)
--- NOTE | 2022-10-26 13:54 | P.CRDCN ---
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 She also underwent EP study in September 2022 with noninducible VT. Patient underwent RF ablation of the proximal right bundle to eliminate possibility of bundle branch reentry VT. Patient follows in the office with Dr. Thomas. We have been asked to see the patient in consultation for hy potension. Patient examined at the bedside. Patient states he went to see Dr. Burgos yesterday. The patient was found to be hypotensive. He was told to stop taking his Entresto and increase his Midodrine. Dr. Burgos instructed the patient come to the emergency room if his blood pressure remained on the low side hence the patient presented to the hospital for further evaluation. The patient reports he has been feeling short of breath recently. He states when he gets short of breath than he develops chest pain. He also reports he has been having a headache recently and having double vision. The patient reports she received Dilaudid at 5:30 this morning which helped all of his symptoms. He reports feeling chronically lightheaded and dizzy which she states is secondary to his Parkinson's disease. * EKG reveals sinus mechanism with right bundle branch block. No signs of acute ischemia. * Chest xray negative for acute process * Laboratory data: W BC 9.3. Hemoglobin 13.0. Platelet count 275. Sodium 140. Potassium 4.1. BUN 17. Creatinine 0.83. Troponin negative 3 * Current home cardiac medications include Eliquis 5 mg twice a day, aspirin 325 mg daily, Lipitor 80 mg daily, Lasix 20 mg daily, metoprolol succinate 12.5 mg daily, and Midodrine 10mg TID * Most recent echocardiogram obtained in October 2022 revealed ejection fraction 45-50%, mild TR, and atypical septal motion. * Cardiac catheterization history: February 2020 with no evidence of obstructive coronary artery disease REVIEW OF SYSTEMS: At the time of my exam: CONSTITUTIONAL: Denies fever or chills. HEENT: Denies blurred vision, vision changes, or eye pain. Denies hemoptysis CARDIOVASCULAR: Denies chest pain. Denies orthopnea. Denies PND. Denies palpitations RESPIRATORY: Denies shortness of breath. GASTROINTESTINAL: Denies abdominal pain. Denies nausea or vomiting. HEMATOLOGIC: Denies bleeding disorders. GENITOURINARY: Denies any blood in urine. SKIN: Denies pruitis. Denies rash. PHYSICAL EXAM: VITAL SIGNS: Reviewed. GENERAL: Well-developed in no acute distress. HEENT: Head is normocephalic. Pupils are equal, round. Sclerae anicteric. Mucous membranes of the mouth are moist. Neck supple. No JVD or thyromegaly LUNGS: Respirations even and unlabored. Lungs essentially clear to auscultation bilaterally. HEART: Regular rate and rhythm. S1 and S2 heard. ABDOMEN: Soft. Nondistended. Nontender. EXTREMITIES: Normal range of motion. No clubbing or cyanosis. Peripheral pulses intact. No lower extremity edema NEUROLOGIC: Awake and alert. Oriented x 3. 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 Will consider adding low-dose lisinopril. Continue Midodrine 10mg TID To need to monitor blood pressure Recommend outpatient evaluation by neurology to see if adjustments can be made to patient's Parkinson's medications If patient's blood pressure remains stable, he may be discharged home from a cardiac standpoint and follow-up on an outpatient basis with Dr. Thomas Nurse practitioner note has been reviewed by physician. Signing provider agrees with the documented findings, assessment, and plan of care. Dr. Mccrary's Addendum I reviewed with the above plan I have personally seen and examined the patient. I have personally performed all the components of medical care documented above including formulating the assessment and plan. I have personally reviewed the relevant labs, imaging and other diagnostics. I have discussed this in detail with my TECHNICAL INFORMATION SPECIALIST who has helped me with this documentation. I have carefully reviewed this document before finalizing. Total time spent reviewing medical chart, examining patient, counselling patient and documentation [45] mins Thank you for letting cardiology team participating in this patient's care. Dr. Edmnud Mccrary MD Cardiovascular Disease Past Medical History Past Medical History: Atrial Fibrillation, Heart Failure, COPD, Hyperlipidemia, Hypertension, Myocardial Infarction ([place]), Osteoarthritis (OA), Sleep Apnea/CPAP/BIPAP, Syncope Additional Past Medical History / Comment(s): see Dr Hester's H&P,Parkinson's,no mobility devices,uses O2 @ 2 L NC at hs and uses prn during the day(insurance is not covering home oxygen-pt purchased an oxygen machine that makes it's own oxygen off of [employer]),will be starting cpap in 3 weeks, DVT L subclavian/surgically removed, nonischemic cardiomyopathy/AICD/pacer in place, past ETOH - no use since 04/2020 Last Myocardial Infarction Date:: 02/25/20 History of Any Multi-Drug Resistant Organisms: None Reported Past Surgical History: AICD, Appendectomy, Cardiac Ablation, Cholecystectomy, Heart Catheterization, Hernia Repair, Pacemaker Additional Past Surgical History / Comment(s): 04/27/21 lap cholecystectomy, L upper extremity venogram/thrombolysis/thrombectomy, Carly Fundiplication 08/2022 Past Anesthesia/Blood Transfusion Reactions: No Reported Reaction Type of Cardiac Device: Permanent Pacemaker, AICD Device Placement Date:: 05/01/20 Past Psychological History: Anxiety Additional Psychological History / Comment(s): Pt resides with his sister. Smoking Status: Former smoker Past Alcohol Use History: None Reported Additional Past Alcohol Use History / Comment(s): Pt started smoking in 1985 and quit 04/2020. He last drank alcohol 04/2020 Past Drug Use History: None Reported - Past Family History Mother Family Medical History: Cancer Additional Family Medical History / Comment(s): Cancer in jaw. Father Family Medical History: COPD Medications and Allergies Home Medications Medication Instructions Recorded Confirmed Type Albuterol Sulfate [Ventolin HFA] 2 puff INHALATION RT-Q6H PRN 04/28/22 10/25/22 History Atorvastatin [Lipitor] 80 mg PO DAILY 04/28/22 10/25/22 History Furosemide [Lasix] 20 mg PO DAILY 04/28/22 10/25/22 History Nitroglycerin Sl Tabs [Nitrostat] 0.4 mg SL Q5M PRN 04/28/22 10/25/22 History Apixaban [Eliquis] 5 mg PO BID #30 tab 05/14/22 10/25/22 Rx Cyanocobalamin [Vitamin B-12] 1,000 mcg PO DAILY tab 06/09/22 10/25/22 Rx Famotidine [Pepcid] 20 mg PO BID 90 Days #180 tab 06/09/22 10/25/22 Rx Levothyroxine Sodium [Synthroid] 50 mcg PO DAILY@0630 90 Days #90 06/09/22 10/25/22 Rx tab Fluticasone/Umeclidin/Vilanter 1 puff INHALATION RT-DAILY 06/28/22 10/25/22 History [Trelegy Ellipta 200-62.5-25] Budesonide/Formoterol Fumarate 2 puff INHALATION RT-BID 07/02/22 10/25/22 History [Symbicort 160-4.5 Mcg Inhaler] Carbidopa-Levodopa 10-100 mg 1 tab PO TID 07/02/22 10/25/22 History [Sinemet 10-100 mg] Melatonin 5 mg PO HS 07/02/22 10/25/22 History Midodrine [ProAmatine] 10 mg PO AC-TID 30 Days #90 tab 09/13/22 10/25/22 Rx Acetaminophen Tab [Tylenol] 650 mg PO Q6H PRN 09/16/22 10/25/22 History Metoprolol Succinate (ER) [Toprol 12.5 mg PO DAILY #30 tab 09/21/22 10/25/22 Rx XL] ALPRAZolam [Xanax] 0.5 mg PO TID PRN 10/18/22 10/25/22 History Albuterol Nebulized [Ventolin 2.5 mg INHALATION RT-QID 10/18/22 10/25/22 History Nebulized] Sertraline [Zoloft] 50 mg PO DAILY 10/18/22 10/25/22 History Aspirin 325 mg PO DAILY tab 10/21/22 10/25/22 Rx methylPREDNISolone Dose Pack See Taper PO DIRECTED 10/25/22 10/25/22 History [Medrol Dose Pack] Allergies Allergy/AdvReac Type Severity Reaction Status Date / Time No Known Allergies Allergy Verified 10/25/22 22:39 Physical Exam Vitals: Vital Signs Temp Pulse Pulse Resp BP Pulse Ox 10/26/22 06:35 61 18 107/75 95 10/26/22 04:30 66 18 106/73 96 10/26/22 02:58 60 18 106/7 96 10/25/22 22:33 97.8 F 62 17 116/90 97 10/25/22 20:50 65 18 121/74 96 10/25/22 20:40 68 10/25/22 20:09 98.8 F 74 20 126/68 97 Intake and Output 10/25/22 10/26/22 10/26/22 22:59 06:59 14:59 Other: Weight 76.204 kg 76.204 kg Results 10/26/22 06:46 10/26/22 06:46 Cardiac Enzymes 10/25/22 10/25/22 10/26/22 Range/Units 20:47 20:47 06:46 AST 36 35 (17-59) U/L Troponin I <0.012 (0.000-0.034) ng/mL Coagulation 10/25/22 Range/Units 20:47 PT 10.6 (9.0-12.0) sec APTT 26.7 (22.0-30.0) sec CBC 10/25/22 10/26/22 Range/Units 20:47 06:46 WBC 9.2 9.3 (3.8-10.6) k/uL RBC 4.53 4.32 (4.30-5.90) m/uL Hgb 13.6 13.0 (13.0-17.5) gm/dL Hct 41.7 39.9 (39.0-53.0) % Plt Count 290 275 (150-450) k/uL Comprehensive Metabolic Panel 10/25/22 10/26/22 Range/Units 20:47 06:46 Sodium 138 140 (137-145) mmol/L Potassium 4.4 4.1 (3.5-5.1) mmol/L Chloride 106 106 (98-107) mmol/L Carbon Dioxide 24 27 (22-30) mmol/L BUN 18 17 (9-20) mg/dL Creatinine 0.85 0.83 (0.66-1.25) mg/dL Glucose 92 92 (74-99) mg/dL Calcium 9.2 8.8 (8.4-10.2) mg/dL AST 36 35 (17-59) U/L ALT 49 63 H (4-49) U/L Alkaline Phosphatase 88 76 (38-126) U/L Total Protein 7.2 6.4 (6.3-8.2) g/dL Albumin 4.2 3.8 (3.5-5.0) g/dL Current Medications Generic Name Dose Route Start Last Admin Trade Name Freq PRN Reason Stop Dose Admin Acetaminophen 650 mg 10/26/22 07:27 Acetaminophen Tab 325 Mg Tab PO Q6H PRN Pain or Fever > 100.5 Albuterol Sulfate 2.5 mg 10/26/22 08:00 Albuterol Nebulized 2.5 Mg/3 Ml INHALATION RT-QID GONZÁLEZ Alprazolam 0.5 mg 10/26/22 07:27 Alprazolam 0.5 Mg Tab PO TID PRN Anxiety Apixaban 5 mg 10/26/22 09:00 10/26/22 08:30 Apixaban 5 Mg Tab PO 5 mg BID GONZÁLEZ Administration Protocol Aspirin 325 mg 10/26/22 09:00 10/26/22 08:30 Aspirin 325 Mg Tab PO 325 mg DAILY GONZÁLEZ Administration Atorvastatin Calcium 80 mg 10/26/22 09:00 10/26/22 08:36 Atorvastatin 80 Mg Tab PO 80 mg DAILY GONZÁLEZ Administration Budesonide/Formoterol Fumarate 2 puff 10/26/22 08:00 Symbicort 160-4.5 Mcg Inhaler INHALATION RT-BID GONZÁLEZ Carbidopa/Levodopa 1 each 10/26/22 09:00 10/26/22 08:30 Carbidopa-Levodopa 10-100 Mg 1 Each Tab PO 1 each TID GONZÁLEZ Administration Cyanocobalamin 1,000 mcg 10/26/22 09:00 10/26/22 08:30 Cyanocobalamin 500 Mcg Tab PO 1,000 mcg DAILY GONZÁLEZ Administration Famotidine 20 mg 10/26/22 09:00 10/26/22 08:31 Famotidine 20 Mg Tab PO 20 mg BID GONZÁLEZ Administration Furosemide 20 mg 10/26/22 09:00 10/26/22 08:31 Furosemide 20 Mg Tab PO 20 mg DAILY GONZÁLEZ Administration Hydromorphone HCl 0.5 mg 10/26/22 00:41 10/26/22 05:40 Hydromorphone 0.5 Mg/0.5 Ml Syringe IVP 0.5 mg Q4HR PRN Administration Pain Levothyroxine Sodium 50 mcg 10/27/22 06:30 Levothyroxine 50 Mcg Tab PO DAILY@0630 GONZÁLEZ Melatonin 5 mg 10/26/22 21:00 Melatonin 5 Mg Tablet PO HS GONZÁLEZ Metoprolol Succinate 12.5 mg 10/26/22 09:00 10/26/22 08:31 Metoprolol Succinate (Er) 25 Mg Tab.Er.24h PO 12.5 mg DAILY GONZÁLEZ Administration Midodrine 10 mg 10/26/22 07:30 10/26/22 08:30 Midodrine 5 Mg Tab PO 10 mg AC-TID GONZÁLEZ Administration Naloxone HCl 0.2 mg 10/25/22 22:13 Naloxone 0.4 Mg/Ml 1 Ml Vial IV Q2M PRN Opioid Reversal Ondansetron HCl 4 mg 10/25/22 22:13 Ondansetron 4 Mg/2 Ml Vial IVP Q8HR PRN Nausea And Vomiting Sertraline HCl 50 mg 10/26/22 09:00 10/26/22 08:31 Sertraline 50 Mg Tab PO 50 mg DAILY GONZÁLEZ Administration Intake and Output 10/25/22 10/26/22 10/26/22 22:59 06:59 14:59 Other: Weight 76.204 kg 76.204 kg 10/26/22 06:46 10/26/22 06:46
[2022-10-26] MEDS: ALPRAZolam 0.5 MG TAB PO PRN ×2 (15:15→21:06)
[2022-10-26] MEDS: MELATONIN 5 MG TABLET PO SCH (21:04)
[2022-10-27] MEDS: HYDROmorphone 0.5 MG/0.5 ML SYRINGE IVP PRN ×5 (01:56→22:17)
[2022-10-27] MEDS: LEVOTHYROXINE 50 MCG TAB PO SCH (05:36)
[2022-10-27] MEDS: ALBUTEROL NEBULIZED 2.5 MG/3 ML INHALATION SCH ×4 (08:09→20:37)
[2022-10-27] MEDS: SYMBICORT 160-4.5 MCG INHALER INHALATION SCH ×2 (08:10→20:37)
[2022-10-27] MEDS: CARBIDOPA-LEVODOPA 10-100 MG 1 EACH TAB PO SCH ×3 (08:23→21:03)
[2022-10-27] MEDS: APIXABAN 5 MG TAB PO SCH ×2 (08:23→21:02)
[2022-10-27] MEDS: ASPIRIN 325 MG TAB PO SCH (08:23)
[2022-10-27] MEDS: ATORVASTATIN 80 MG TAB PO SCH (08:23)
[2022-10-27] MEDS: CYANOCOBALAMIN 500 MCG TAB PO SCH (08:23)
[2022-10-27] MEDS: MIDODRINE 5 MG TAB PO SCH ×3 (08:23→17:39)
[2022-10-27] MEDS: FUROSEMIDE 20 MG TAB PO SCH (08:24)
[2022-10-27] MEDS: METOPROLOL SUCCINATE (ER) 25 MG TAB.ER.24H PO SCH (08:24)
[2022-10-27] MEDS: FAMOTIDINE 20 MG TAB PO SCH ×2 (08:24→21:02)
[2022-10-27] MEDS: SERTRALINE 50 MG TAB PO SCH (08:24)
[2022-10-27] MEDS: ALPRAZolam 0.5 MG TAB PO PRN ×3 (08:52→22:17)
--- NOTE | 2022-10-27 10:18 | P.PN ---
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 She also underwent EP study in September 2022 with noninducible VT. Patient underwent RF ablation of the proximal right bundle to eliminate possibility of bundle branch reentry VT. Patient follows in the office with Dr. Thomas. We have been asked to see the patient in consultation for hypotension. Patient examined at the bedside. Patient states he went to see Dr. Burgos yesterday. The patient was found to be hypotensive. He was told to s top taking his Entresto and increase his Midodrine. Dr. Burgos instructed the patient come to the emergency room if his blood pressure remained on the low side hence the patient presented to the hospital for further evaluation. The patient reports he has been feeling short of breath recently. He states when he gets short of breath than he develops chest pain. He also reports he has been having a headache recently and having double vision. The patient reports she received Dilaudid at 5:30 this morning which helped all of his symptoms. He reports feeling chronically lightheaded and dizzy which she states is secondary to his Parkinson's disease. * EKG reveals sinus mechanism with right bundle branch block. No signs of acute ischemia. * Chest xray negative for acute process * Laboratory data: W BC 9.3. Hemoglobin 13.0. Platelet count 275. Sodium 140. Potassium 4.1. BUN 17. Creatinine 0.83. Troponin negative 3 * Current home cardiac medications include Eliquis 5 mg twice a day, aspirin 325 mg daily, Lipitor 80 mg daily, Lasix 20 mg daily, metoprolol succinate 12.5 mg daily, and Midodrine 10mg TID * Most recent echocardiogram obtained in October 2022 revealed ejection fraction 45-50%, mild TR, and atypical septal motion. * Cardiac catheterization history: February 2020 with no evidence of obstructive coronary artery disease 10/27/2022 Patient examined this morning at the bedside. Patient denies chest pain or pressure. He denies shortness of breath. He continues to report generalized pain and is requiring IV Dilaudid. Patient's blood pressure is improved. Most recent blood pressure 119/84. Neurology has been consulted for further evaluation PHYSICAL EXAM: VITAL SIGNS: Reviewed. GENERAL: Well-developed in no acute distress. HEENT: Head is normocephalic. Pupils are equal, round. Sclerae anicteric. Mucous membranes of the mouth are moist. Neck supple. No JVD or thyromegaly LUNGS: Respirations even and unlabored. Lungs essentially clear to auscultation bilaterally. HEART: Regular rate and rhythm. S1 and S2 heard. ABDOMEN: Soft. Nondistended. Nontender. EXTREMITIES: Normal range of motion. No clubbing or cyanosis. Peripheral pulses intact. No lower extremity edema NEUROLOGIC: Awake and alert. Oriented x 3. 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 Entresto has been discontinued due to hypotension Continue Midodrine Patient may be discharged home from a cardiac standpoint and follow-up on an outpatient basis with Dr. Thomas We will sign off. Please reconsult if needed. Nurse practitioner note has been reviewed by physician. Signing provider agrees with the documented findings, assessment, and plan of care. Dr. Mccrary's Addendum Patient's blood pressure is better today. BP continue to hold Entresto because of his labile blood pressure mild being on it. Instead we'll start low-dose lisinopril. Patient needs outpatient follow-up with neurology for better management of parkinsonism and dysautonomia. He also needs good physical therapy and occupational therapy evaluation and close outpatient follow-up for gait stability I have personally seen and examined the patient. I have personally performed all the components of medical care documented above including detailed hisotry, review of system, physican exam, MDM and formulating the assessment and plan. I have personally reviewed the relevant labs, imaging and other diagnostics. I have discussed this in detail with my [employer] who has helped me with this documentation. I have carefully reviewed this document before finalizing. Total time spent reviewing medical chart, examining patient, counselling patient and documentation [45] mins Thank you for letting cardiology team participating in this patient's care. Dr. Edmund Mccrary MD Cardiovascular Disease Objective - Vital Signs Vital signs: Vital Signs Temp 98 F 10/27/22 07:00 Pulse 64 10/27/22 08:05 Resp 18 10/27/22 07:00 BP 119/84 10/27/22 07:00 Pulse Ox 97 10/27/22 08:05 FiO2 Intake & Output 10/26/22 10/27/22 10/27/22 18:59 06:59 18:59 Intake Total 426 240 Balance 426 240 Intake: Oral 426 240 Other: # Voids 1 3 - Labs CBC & Chem 7: 10/26/22 06:46 10/26/22 06:46
--- NOTE | 2022-10-27 10:33 | P.CNNES ---
History of Present Illness Consult date: 10/27/22 Requesting physician: Felix Burgos Reason for Consult: double vision/tremor History of Present Illness: This is a 62-year-old gentleman with history of Parkinson's disease, atrial fibrillation status post ablation on eliquis heart failure status post AICD who presented emergency department because of low blood pressure. Patient is known to me and I personally seen the patient last on 09/13/2022 in which I saw him in our facility. Patient stated that his blood pressure was low recently and unsure for how long. Patient does not seem to be a poor historian. Neurology is consulted for diplopia and tremor. Patient stated that he's been having the diplopia both eyes with past 6 months and he could not tell me it was looking to the right left initially a yet to think about it and he thinks is to the right. He cannot tell me if this was a constant think or it comes and goes. Patient could not provide me the details. Regarding the tremors patient has history of Parkinson's disease and I recommended last time that the to obtain MRI of the brain as an outpatient since the patient cannot get MRI of the brain since he has AICD and is not MRI compatible. I also recommended last time for the patient to get a Jose Francisco scan as outpatient. Some I increased his Sinemet from [id number] 1 tablet 3 times a day to 4 times a day. Patient states she's been passing out for the last 3 months or more and denies urinary incontinence tongue bite. Denies history of seizure. He cannot provide me the details of the syncopal episode. Per nursing staff patient does not have a hypotensive episode. Some other workup during his hospital visit consisted of: His blood pressure on presentation is 126/68, heart rate of 74, respiratory of 20, temperature of 98.8 Fahrenheit oral pulse ox of 97% room air. Lowest systolic blood pressure is in the 110s and does not go lower than that. CBC with differential is unremarkable Chemistry panel is unremarkable Review of Systems Review of system: The 12 point system was reviewed and apparent positive and negative per HPI. Past Medical History Past Medical History: Atrial Fibrillation, Heart Failure, COPD, Hyperlipidemia, Hypertension, Myocardial Infarction ([place]), Osteoarthritis (OA), Sleep Apnea/CPAP/BIPAP, Syncope Additional Past Medical History / Comment(s): see Dr Hester's H&P,Parkinson's,no mobility devices,uses O2 @ 2 L NC at hs and uses prn during the day(insurance is not covering home oxygen-pt purchased an oxygen machine that makes it's own oxygen off of [employer]),will be starting cpap in 3 weeks, DVT L subclavian/surgically removed, nonischemic cardiomyopathy/AICD/pacer in place, past ETOH - no use since 04/2020 Last Myocardial Infarction Date:: 02/25/20 History of Any Multi-Drug Resistant Organisms: None Reported Past Surgical History: AICD, Appendectomy, Cardiac Ablation, Cholecystectomy, Heart Catheterization, Hernia Repair, Pacemaker Additional Past Surgical History / Comment(s): 04/27/21 lap cholecystectomy, L upper extremity venogram/thrombolysis/thrombectomy, Carly Fundiplication 08/2022 Past Anesthesia/Blood Transfusion Reactions: No Reported Reaction Type of Cardiac Device: Permanent Pacemaker, AICD Device Placement Date:: 05/01/20 Past Psychological History: Anxiety Additional Psychological History / Comment(s): Pt resides with his sister. Smoking Status: Former smoker Past Alcohol Use History: None Reported Additional Past Alcohol Use History / Comment(s): Pt started smoking in 1985 and quit 04/2020. He last drank alcohol 04/2020 Past Drug Use History: None Reported - Past Family History Mother Family Medical History: Cancer Additional Family Medical History / Comment(s): Cancer in jaw. Father Family Medical History: COPD Medications and Allergies Home Medications Medication Instructions Recorded Confirmed Type Albuterol Sulfate [Ventolin HFA] 2 puff INHALATION RT-Q6H PRN 04/28/22 10/25/22 History Atorvastatin [Lipitor] 80 mg PO DAILY 04/28/22 10/25/22 History Furosemide [Lasix] 20 mg PO DAILY 04/28/22 10/25/22 History Nitroglycerin Sl Tabs [Nitrostat] 0.4 mg SL Q5M PRN 04/28/22 10/25/22 History Apixaban [Eliquis] 5 mg PO BID #30 tab 05/14/22 10/25/22 Rx Cyanocobalamin [Vitamin B-12] 1,000 mcg PO DAILY tab 06/09/22 10/25/22 Rx Famotidine [Pepcid] 20 mg PO BID 90 Days #180 tab 06/09/22 10/25/22 Rx Levothyroxine Sodium [Synthroid] 50 mcg PO DAILY@0630 90 Days #90 06/09/22 10/25/22 Rx tab Fluticasone/Umeclidin/Vilanter 1 puff INHALATION RT-DAILY 06/28/22 10/25/22 History [Trelegy Ellipta 200-62.5-25] Budesonide/Formoterol Fumarate 2 puff INHALATION RT-BID 07/02/22 10/25/22 History [Symbicort 160-4.5 Mcg Inhaler] Carbidopa-Levodopa 10-100 mg 1 tab PO TID 07/02/22 10/25/22 History [Sinemet 10-100 mg] Melatonin 5 mg PO HS 07/02/22 10/25/22 History Midodrine [ProAmatine] 10 mg PO AC-TID 30 Days #90 tab 09/13/22 10/25/22 Rx Acetaminophen Tab [Tylenol] 650 mg PO Q6H PRN 09/16/22 10/25/22 History Metoprolol Succinate (ER) [Toprol 12.5 mg PO DAILY #30 tab 09/21/22 10/25/22 Rx XL] ALPRAZolam [Xanax] 0.5 mg PO TID PRN 10/18/22 10/25/22 History Albuterol Nebulized [Ventolin 2.5 mg INHALATION RT-QID 10/18/22 10/25/22 History Nebulized] Sertraline [Zoloft] 50 mg PO DAILY 10/18/22 10/25/22 History Aspirin 325 mg PO DAILY tab 10/21/22 10/25/22 Rx methylPREDNISolone Dose Pack See Taper PO DIRECTED 10/25/22 10/25/22 History [Medrol Dose Pack] Allergies Allergy/AdvReac Type Severity Reaction Status Date / Time No Known Allergies Allergy Verified 10/25/22 22:39 Physical Examination - Vital Signs Vital Signs: Vital Signs Temp Pulse Pulse Resp BP Pulse Ox 10/27/22 08:05 64 97 10/27/22 07:00 98 F 64 18 119/84 97 10/27/22 01:27 98.5 F 59 L 12 113/68 97 10/26/22 19:57 76 10/26/22 19:41 72 10/26/22 19:39 97.7 F 66 16 119/79 95 07/19/23 15:35 84 10/26/22 15:25 80 10/26/22 15:00 97.9 F 76 18 110/69 95 10/26/22 11:28 95 10/26/22 11:25 92 10/26/22 11:12 88 Intake and Output 10/26/22 10/27/22 10/27/22 22:59 06:59 14:59 Intake Total 426 240 Balance 426 240 Intake: Oral 426 240 Other: # Voids 1 3 GENERAL: The patient is lying in bed and is not in acute distress. PSYCH: Is tangential. NEUROLOGICAL: Higher mental function: The patient was sleeping upon attempting to examining him and would wake up to voice. He is oriented to self, place and time. Patient is following simple commands. No aphasia and no neglect. Cranial nerves: The pupils are round, equal and reactive to light. Visual mendosa are full to confrontation throughout. Extraocular movement is intact no nystagmus is noted. Facial sensation is normal to touch throughout. The facial strength is normal throughout. Hearing is mildly to moderately decreased bilaterally to hand rub. Tongue is midline and moved [id number] without any difficulty. Shoulder shrug is normal bilaterally. Motor: Gait is normal. The strength is 5 over 5 throughout. Normal tone and bulk. Cerebellum: Normal finger to nose bilaterally. Sensation: Sensation is normal to touch throughout. Reflexes (right/left): 2+ throughout. Plantars are downgoing bilaterally. Results - Laboratory Findings CBC and BMP: 10/26/22 06:46 10/26/22 06:46 Abnormal Lab Findings: Abnormal Labs 10/26/22 06:46 ALT 63 H Assessment and Plan Assessment: This is a 62-year-old gentleman who presented emergency department for hypotensive episode and generalized weakness per the ED note. During this hospital state he has not had any hypotensive episode that. Neurology is consulted for diplopia and tremor. Patient states that he has diplopia for the past 6 months and that regarding the tremor he has underlying Parkinson's disease. Diplopia and it seems he has the symptoms for the past 6 months and unknown the details since patient is a poor historian. He had abnormal thyroid which can cause visual disturbance and last TSH was 0.28 on September 2022 History of Parkinson's disease on Sinemet Reported hypotensive episode and during his hospital visit he has not had any hypotensive episode Syncopal episodes for months according to patient. Denies history of seizure. Unsure exact cause of reported syncopal episode. Unsure if he was truly hypotensive that was leading to syncopal episodes Low normal vitamin B12 331 on May 2022 Borderline diabetes mellitus and hemoglobin A1c 6.2 and neck every 2022 History of atrial fibrillation status post ablation on eliquis History of heart failure status post AICD Plan: I personally saw the patient last on 09/13/2022 and I recommended an outpatient MRI since he has AICD and is not MRI Compatible. In the meantime I'll obtain a repeat CT of the head to rule out any central cause. For the syncopal episode: Ordered orthostatic vitals, routine EEG to rule out any underlying seizure discharges which I feel unlikely and carotid duplex As per my previous last note, recommend Jose Francisco scan as outpatient for his tremors. As stated in my impression regarding the visual disturbance she's been having for 6 month and unsure if it's due to hypothyroidism and recommend ophthalmology evaluation as an outpatient. Also recommend MRI of the brain as an outpatient. He is on Vitamin B12 1000mcg for low normal vitamin B12. He is on Sinemet 10-100mg 1 tab tid and on last visit, recommended to go up 1 tab qid but if having hypotensive episodes hold off. Will defer the rest of medical management to primary team and other specialist. Upon discharge recommend the patient to follow-up with a neurologist in outpatient within 1-2 weeks. The plan is discussed with patient and his nurse. Thank you for the consultation. Time with Patient: Greater than 30
--- NOTE | 2022-10-27 10:49 | CT ---
EXAMINATION TYPE: CT brain wo con CT DLP: 1165 mGycm, Automated exposure control for dose reduction was used. DATE OF EXAM: 10/27/2022 10:38 AM COMPARISON: CT brain 06/04/2022 CLINICAL INDICATION:Male, 62 years old with history of dizziness, worsening tremors TECHNIQUE: Brain: Multiple axial CT images of the brain were obtained without IV contrast. Coronal and sagittal reformats reviewed. FINDINGS: Brain: Extra-axial spaces: No abnormal extra-axial fluid collections. Ventricular system: Within normal limits Cerebral parenchyma: No acute intraparenchymal hemorrhage or mass effect. The hawley-white junction is well differentiated. Cerebellum: Unremarkable. Mass effect: No evidence of midline shift. Intracranial vasculature: Atherosclerotic calcifications of the intracranial vessels. Soft tissues: Normal. Calvarium/osseous structures: No depressed skull fracture. Remote injury to the left medial orbital w all. Paranasal sinuses and mastoid air cells: Clear. The frontal sinuses are aplastic again. Visualized orbits: Orbital contents are intact. IMPRESSION: No acute intracranial process.
--- NOTE | 2022-10-27 13:06 | US ---
EXAMINATION TYPE: US carotid duplex BILAT DATE OF EXAM: 10/27/2022 COMPARISON: NONE CLINICAL INDICATION: Male, 62 years old with history of syncope; pngoing syncope and blurry vision fo r 2 years, h/o Parkinson's TECHNIQUE: Carotid duplex ultrasound examination. Indirect Doppler criteria was utilized. FINDINGS: EXAM MEASUREMENTS: RIGHT: Peak Systolic Velocity (PSV) cm/sec ----- Right CCA: 96.4 ----- Right ICA: 69.3 ----- Right ECA: 73.5 ICA/CCA ratio: 0.7 RIGHT: End Diastole cm/sec ----- Right CCA: 20.7 ----- Right ICA: 16.8 ----- Right ECA: 11.8 LEFT: Peak Systolic Velocity (PSV) cm/sec ----- Left CCA: 82.1 ----- Left ICA: 78.7 ----- Left ECA: 98.2 ICA/CCA ratio: 1.0 LEFT: End Diastole cm/sec ----- Left CCA: 17.2 ----- Left ICA: 27.5 ----- Left ECA: 98.2 VERTEBRALS (direction of flow): Right Vertebral: not seen Left Vertebral: Antegrade Rhythm: Normal ADMISSIONS REPRESENTATIVE NOTES: Mild homogeneous plaque with no significant stenosis IMPRESSION: No evidence for hemodynamically significant stenosis. Criteria for Assigning % of Stenosis / Diameter reduction (Estimation based on the indirect measurements of the internal carotid artery velocities (ICA PSV). 1. Normal (no stenosis)=ICA PSV < 125 cm/s: ratio < 2.0: ICA EDV<40 cm/s. 2. Less than 50% stenosis=ICA PSV < 125 cm/s: ratio < 2.0: ICA EDV<40 cm/s. 3. 50 to 69% stenosis=ICA PSV of 125 to 230 cm/s: ration 2.0 ? 4.0: ICA EDV 40-100 cm/s. 4. Greater than 70% stenosis to near occlusion= ICA PSV > 230 cm/s: ratio > 4.0: ICA EDV > 100 cm/s. 5. Near occlusion= ICA PSV velocities may be low or undetectable: variable ratio and ICA EDV. 6. Total occlusion=unable to detect flow.
[2022-10-27] MEDS: MELATONIN 5 MG TABLET PO SCH (21:02)
--- NOTE | 2022-10-27 21:51 | EEG ---
ELECTROENCEPHALOGRAM REPORT CLINICAL HISTORY: This is a 62-year-old gentleman with a syncopal episode at home. The video EEG is obtained to evaluate for seizure epileptiform activity. RELEVANT MEDICATIONS: Xanax. EEG TYPE: A routine 21-channel EEG is performed with video using the 10/20 electrode placement system. DESCRIPTION: Wakefulness is obtained. The posterior dominant rhythm consists of [id number] voltage of 9 hertz activity that is well modulated and well sustained. There is no physiological stage 2 sleep architecture. There is no focal slowing. Interictal and ictal is none. ACTIVATION PROCEDURE: Photic stimulation did not evoke a posterior driving response. There is no abnormality during the photic stimulation. Hyperventilation is not performed. CLINICAL INTERPRETATION: This is a normal routine EEG. There is no focal slowing, epileptiform discharge, or seizure on the EEG. A normal routine EEG does not rule out underlying epilepsy. Clinical correlation is recommended. MMAERN / KIMN: [id number] /
[2022-10-28] MEDS: LEVOTHYROXINE 50 MCG TAB PO SCH (06:04)
[2022-10-28] MEDS: ALBUTEROL NEBULIZED 2.5 MG/3 ML INHALATION SCH ×4 (07:46→19:39)
[2022-10-28] MEDS: SYMBICORT 160-4.5 MCG INHALER INHALATION SCH ×2 (07:46→19:39)
[2022-10-28] MEDS: ATORVASTATIN 80 MG TAB PO SCH (09:21)
[2022-10-28] MEDS: FAMOTIDINE 20 MG TAB PO SCH ×2 (09:21→20:06)
[2022-10-28] MEDS: CARBIDOPA-LEVODOPA 10-100 MG 1 EACH TAB PO SCH ×3 (09:21→20:06)
[2022-10-28] MEDS: MIDODRINE 5 MG TAB PO SCH ×3 (09:21→17:27)
[2022-10-28] MEDS: FUROSEMIDE 20 MG TAB PO SCH (09:22)
[2022-10-28] MEDS: ASPIRIN 325 MG TAB PO SCH (09:22)
[2022-10-28] MEDS: APIXABAN 5 MG TAB PO SCH ×2 (09:22→20:06)
[2022-10-28] MEDS: CYANOCOBALAMIN 500 MCG TAB PO SCH (09:22)
[2022-10-28] MEDS: ALPRAZolam 0.5 MG TAB PO PRN ×2 (09:28→21:53)
[2022-10-28] MEDS: SERTRALINE 50 MG TAB PO SCH (09:28)
[2022-10-28] MEDS: METOPROLOL SUCCINATE (ER) 25 MG TAB.ER.24H PO SCH (09:28)
[2022-10-28] MEDS: HYDROmorphone 0.5 MG/0.5 ML SYRINGE IVP PRN ×3 (12:38→21:52)
--- NOTE | 2022-10-28 15:00 | P.PN ---
Subjective Progress Note Date: 10/28/22 I am continuing following up the patient and he feels he is stable. Denies any new neurological issues. Objective - Vital Signs Vital signs: Vital Signs Temp 98.3 F 10/28/22 07:00 Pulse 64 10/28/22 11:15 Resp 18 10/28/22 13:56 BP 103/68 10/28/22 07:00 Pulse Ox 96 10/28/22 07:47 FiO2 Intake & Output 10/27/22 10/28/22 10/28/22 18:59 06:59 18:59 Intake Total 600 118 Balance 600 118 Intake: Oral 600 118 Other: Voiding Method Toilet # Voids 1 1 - Exam GENERAL: The patient is lying in bed and is not in acute distress. PSYCH: Is tangential. NEUROLOGICAL: Higher mental function: The patient was sleeping upon attempting to examining him and would wake up to voice. He is oriented to self, place and time. Patient is following simple commands. No aphasia and no neglect. Cranial nerves: The pupils are round, equal and reactive to light. Visual mendosa are full to confrontation throughout. Extraocular movement is intact no nystagmus is noted. Facial sensation is normal to touch throughout. The facial strength is normal throughout. Hearing is mildly to moderately decreased bilaterally to hand rub. Tongue is midline and moved gycy-[id number] without any difficulty. Shoulder shrug is normal bilaterally. Motor: Gait is normal. The strength is 5 over 5 throughout. Normal tone and bulk. Cerebellum: Normal finger to nose bilaterally. Sensation: Sensation is normal to touch throughout. Reflexes (right/left): 2+ throughout. Plantars are downgoing bilaterally. Some other workup during his hospital visit consisted of: Ortho: Supine is 107/71 and sitting is 122/73 His blood pressure on presentation is 126/68, heart rate of 74, respiratory of 20, temperature of 98.8 Fahrenheit oral pulse ox of 97% room air. Lowest systolic blood pressure is in the 110s and does not go lower than that. CBC with differential is unremarkable Chemistry panel is unremarkable CT head is reported as no acute intracranial process. Carotid duplex: Is reported as no evidence for hemodynamically significant stenosis. EEG is normal. There is no focal slowing, epileptiform discharges or seizure on the EEG. - Labs CBC & Chem 7: 10/26/22 06:46 07/19/23 06:46 Assessment and Plan Assessment: This is a 62-year-old gentleman who presented emergency department for hypotensive episode and generalized weakness per the ED note. During this hospital state he has not had any hypotensive episode that. Neurology is consulted for diplopia and tremor. Patient states that he has diplopia for the past 6 months and that regarding the tremor he has underlying Parkinson's disease. Diplopia and it seems he has the symptoms for the past 6 months and unknown the details since patient is a poor historian. He had abnormal thyroid which can cause visual disturbance and last TSH was 0.28 on September [address]22. Had CT head which was negative. History of Parkinson's disease on Sinemet Reported hypotensive episode and during his hospital visit he has not had any hypotensive episode Syncopal episodes for months according to patient. Denies history of seizure. Unsure exact cause of reported syncopal episode. Unsure if he was truly hypotensive that was leading to syncopal episodes---EEG and CT are negative. Low normal vitamin B12 331 on May 2022 Borderline diabetes mellitus and hemoglobin A1c 6.2 and neck every 2022 History of atrial fibrillation status post ablation on eliquis History of heart failure status post AICD Plan: I personally saw the patient last on 09/13/2022 and I recommended an outpatient MRI since he has AICD and is not MRI Compatible. He had repeat CT head this time and it was negative. Will obtain orthostatic vitals. Carotid is normal. As per my previous last note, recommend Jose Francisco scan as outpatient for his tremors. As stated in my impression regarding the visual disturbance she's been having for 6 month and unsure if it's due to hypothyroidism and recommend ophthalmology evaluation as an outpatient. Also recommend MRI of the brain as an outpatient. He is on Vitamin B12 1000mcg for low normal vitamin B12. He is on Sinemet 10-100mg 1 tab tid and on last visit, recommended to go up 1 tab qid but if having hypotensive episodes hold off. Will defer the rest of medical management to primary team and other specialist. Upon discharge recommend the patient to follow-up with a neurologist in outpatient within 1-2 weeks. The plan is discussed with patient and his nurse. Otherwise no additional neurological work-up. Please notify neurology team if any further concerns. Time with Patient: Less than 30
--- NOTE | 2022-10-28 17:12 | PN ---
PROGRESS NOTE SUBJECTIVE: A 62-year-old white male, still not feeling good. He wants to be started on essential tremor medications and is unable to control his tremors in his right arm. His sister apparently has responded to a drug called primidone, which he demands to try. He is demanding we try this prior to him going home. He has been treated for COPD, tremors, and multiple cardiac ablations. Management Manager states we have to get this tremors under control per the patient. OBJECTIVE: VITAL SIGNS: Pulse 60s, respiratory rate 16 to 18. Vital signs are stable. LUNGS: Mild wheezes x4. CARDIOVASCULAR: S1 and S2. HEMATOLOGY: Negative Homans. PSYCHIATRIC: Fair mood and affect. PLAN: Start essential tremor medicine. Treat for COPD. Wait for Cardiology, Pulmonary, and Neuro clearance. Possible discharge home tomorrow. TOÑO / KIMN: [id number] /
[2022-10-28] MEDS: MELATONIN 5 MG TABLET PO SCH (20:06)
--- NOTE | 2022-10-28 21:12 | PN ---
PROGRESS NOTE SUBJECTIVE: He states he felt better yesterday than today. He is having more lower blood pressures today. We are going to hold off on his Lasix at this time, checking for orthostatic blood pressure checks. He still has severe tremors in his right hand and Neurology has seen him here, was not informed, and was rude to him and es not treat him right away. I want him to see him anymore. I stopped his Lasix at this point. We will continue with current treatments otherwise. He started Entresto few days ago. He is on low- dose metoprolol for hypertension, Eliquis for the atrial fibrillation, aspirin, Pepcid, Sinemet for Parkinson's, low-dose Synthroid for hypothyroidism. Continue with orthostatic changes PT OT. OBJECTIVE: CARDIOVASCULAR: S1, S2. LUNGS: Clear. NEUROLOGIC: He has tremors in his right arm, moderate amount. PSYCH: Appears anxious, nervous, and scared. Continue current treatment. We will check orthostatics. Hold Lasix for now due to hypotension. Monitor electrolytes, etc. Prognosis guarded. MMODL / IJN: [id number] /
[2022-10-29] MEDS: MIDODRINE 5 MG TAB PO SCH ×3 (05:42→19:36)
[2022-10-29] MEDS: LEVOTHYROXINE 50 MCG TAB PO SCH (05:45)
[2022-10-29] MEDS: ALBUTEROL NEBULIZED 2.5 MG/3 ML INHALATION SCH ×4 (08:14→17:57)
[2022-10-29] MEDS: SYMBICORT 160-4.5 MCG INHALER INHALATION SCH ×2 (08:14→17:58)
[2022-10-29] MEDS: CARBIDOPA-LEVODOPA 10-100 MG 1 EACH TAB PO SCH ×3 (08:14→20:38)
[2022-10-29] MEDS: CYANOCOBALAMIN 500 MCG TAB PO SCH (08:15)
[2022-10-29] MEDS: SERTRALINE 50 MG TAB PO SCH (08:15)
[2022-10-29] MEDS: METOPROLOL SUCCINATE (ER) 25 MG TAB.ER.24H PO SCH (08:15)
[2022-10-29] MEDS: ASPIRIN 325 MG TAB PO SCH (08:15)
[2022-10-29] MEDS: APIXABAN 5 MG TAB PO SCH ×2 (08:15→20:38)
[2022-10-29] MEDS: FAMOTIDINE 20 MG TAB PO SCH ×2 (08:16→20:38)
[2022-10-29] MEDS: ATORVASTATIN 80 MG TAB PO SCH (08:16)
[2022-10-29] MEDS: HYDROmorphone 0.5 MG/0.5 ML SYRINGE IVP PRN (08:23)
[2022-10-29] MEDS: ALPRAZolam 0.5 MG TAB PO PRN (13:45)
--- NOTE | 2022-10-29 14:16 | P.PN ---
Subjective Progress Note Date: 10/29/22 This is a 62-year-old gentleman who presented emergency department for hypotensive episode and generalized weakness per the ED note. During this hospital state he has not had any hypotensive episode that. Neurology were consulted for diplopia and tremor. Patient states that he has diplopia for the past 6 months and that regarding the tremor he has underlying Parkinson's disease. Diplopia and it seems he has the symptoms for the past 6 months and unknown the details since patient is a poor historian. He had abnormal thyroid which can cause visual disturbance and last TSH was 0.28 on September 2022. Had CT head which was negative. History of Parkinson's disease on Sinemet Reported hypotensive episode and during his hospital visit he has not had any hypotensive episode Syncopal episodes for months according to patient. Denies history of seizure. Unsure exact cause of reported syncopal episode. Unsure if he was truly hypotensive that was leading to syncopal episodes---EEG and CT are negative. Low normal vitamin B12 331 on May 2022 Borderline diabetes mellitus and hemoglobin A1c 6.2 and neck every 2022 History of atrial fibrillation status post ablation on eliquis History of heart failure status post AICD 10/29. Patient seen and examined. Still having tremors of upper extremities. REVIEW OF SYSTEMS: CONSTITUTIONAL: No fever, no malaise,. CARDIOVASCULAR: No chest pain, no palpitations, no syncope. PULMONARY: No shortness of breath, no cough, GASTROINTESTINAL: No diarrhea, no nausea, no vomiting, no abdominal pain. NEUROLOGICAL: No headaches, no weakness, PHYSICAL EXAMINATION: GENERAL: The patient is alert and oriented x3, not in any acute distress. Well developed, well nourished. HEENT: Pupils are round and equally reacting to light. EOMI. No scleral icterus. No conjunctival pallor. Normocephalic, atraumatic. No pharyngeal erythema. No thyromegaly. CARDIOVASCULAR: S1 and S2 present. No murmurs, rubs, or gallops. PULMONARY: Chest is clear to auscultation, no wheezing or crackles. ABDOMEN: Soft, nontender, nondistended, normoactive bowel sounds. No palpable organomegaly. MUSCULOSKELETAL: No joint swelling or deformity. EXTREMITIES: No cyanosis, clubbing, or pedal edema. NEUROLOGICAL: Gross neurological examination did not reveal any focal deficits. Tremors of upper extremities SKIN: No rashes. 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 Entresto has been discontinued due to hypotension Continue Midodrine Neurology evaluated the patient and recommended recommend Jose Francisco scan as outpatient for his tremors. Neurology recommend ophthalmology evaluation as an outpatient. Also recommend MRI of the brain as an outpatient. Labs and medication were reviewed.. Continue same treatment. Continue with symptomatic treatment. Resume home medication. Monitor labs and vitals. DVT and GI prophylaxis. Further recommendations as per clinical course of the patient Dictation was produced using [employer] dictation software. please excuse any grammatical, word or spelling errors. Objective - Vital Signs Vital signs: Vital Signs Temp 98.1 F 10/29/22 08:28 Pulse 66 10/29/22 08:28 Resp 18 10/29/22 08:28 BP 99/61 10/29/22 08:28 Pulse Ox 96 10/29/22 08:28 FiO2 95 10/28/22 16:06 Intake & Output 10/28/22 10/29/22 10/29/22 18:59 06:59 18:59 Intake Total 418 75 Balance 418 75 Intake: Oral 418 75 Other: Voiding Method Toilet Toilet # Voids 3 1 # Bowel Movements 1 - Labs CBC & Chem 7: 10/26/22 06:46 10/26/22 06:46
[2022-10-29] MEDS: MELATONIN 5 MG TABLET PO SCH (20:38)
[2022-10-30] MEDS: LEVOTHYROXINE 50 MCG TAB PO SCH (05:51)
[2022-10-30] MEDS: MIDODRINE 5 MG TAB PO SCH ×3 (05:51→17:14)
[2022-10-30] MEDS: METOPROLOL SUCCINATE (ER) 25 MG TAB.ER.24H PO SCH (08:11)
[2022-10-30] MEDS: CARBIDOPA-LEVODOPA 10-100 MG 1 EACH TAB PO SCH ×3 (08:11→21:28)
[2022-10-30] MEDS: ATORVASTATIN 80 MG TAB PO SCH (08:12)
[2022-10-30] MEDS: SERTRALINE 50 MG TAB PO SCH (08:12)
[2022-10-30] MEDS: CYANOCOBALAMIN 500 MCG TAB PO SCH (08:12)
[2022-10-30] MEDS: APIXABAN 5 MG TAB PO SCH ×2 (08:12→21:28)
[2022-10-30] MEDS: FAMOTIDINE 20 MG TAB PO SCH ×2 (08:12→21:28)
[2022-10-30] MEDS: ASPIRIN 325 MG TAB PO SCH (08:12)
[2022-10-30] MEDS: ALBUTEROL NEBULIZED 2.5 MG/3 ML INHALATION SCH ×4 (08:36→20:35)
[2022-10-30] MEDS: SYMBICORT 160-4.5 MCG INHALER INHALATION SCH ×2 (08:36→20:36)
[2022-10-30] MEDS: HYDROmorphone 0.5 MG/0.5 ML SYRINGE IVP PRN ×2 (14:35→22:26)
--- NOTE | 2022-10-30 15:29 | P.PN ---
Subjective Progress Note Date: 10/30/22 This is a 62-year-old gentleman who presented emergency department for hypotensive episode and generalized weakness per the ED note. During this hospital state he has not had any hypotensive episode that. Neurology were consulted for diplopia and tremor. Patient states that he has diplopia for the past 6 months and that regarding the tremor he has underlying Parkinson's disease. Diplopia and it seems he has the symptoms for the past 6 months and unknown the details since patient is a poor historian. He had abnormal thyroid which can cause visual disturbance and last TSH was 0.28 on September 2022. Had CT head which was negative. History of Parkinson's disease on Sinemet Reported hypotensive episode and during his hospital visit he has not had any hypotensive episode Syncopal episodes for months according to patient. Denies history of seizure. Unsure exact cause of reported syncopal episode. Unsure if he was truly hypotensive that was leading to syncopal episodes---EEG and CT are negative. Low normal vitamin B12 331 on May 2022 Borderline diabetes mellitus and hemoglobin A1c 6.2 and neck every 2022 History of atrial fibrillation status post ablation on eliquis History of heart failure status post AICD 10/29. Patient seen and examined. Still having tremors of upper extremities. 10/30. Patient seen and examined. States he still feels very weak. Complaining of tremors of upper extremities REVIEW OF SYSTEMS: CONSTITUTIONAL: No fever, no malaise,. CARDIOVASCULAR: No chest pain, no palpitations, no syncope. PULMONARY: No shortness of breath, no cough, GASTROINTESTINAL: No diarrhea, no nausea, no vomiting, no abdominal pain. NEUROLOGICAL: No headaches, no weakness, PHYSICAL EXAMINATION: GENERAL: The patient is alert and oriented x3, not in any acute distress. Well developed, well nourished. HEENT: Pupils are round and equally reacting to light. EOMI. No scleral icterus. No conjunctival pallor. Normocephalic, atraumatic. No pharyngeal erythema. No thyromegaly. CARDIOVASCULAR: S1 and S2 present. No murmurs, rubs, or gallops. PULMONARY: Chest is clear to auscultation, no wheezing or crackles. ABDOMEN: Soft, nontender, nondistended, normoactive bowel sounds. No palpable organomegaly. MUSCULOSKELETAL: No joint swelling or deformity. EXTREMITIES: No cyanosis, clubbing, or pedal edema. NEUROLOGICAL: Gross neurological examination did not reveal any focal deficits. Tremors of upper extremities SKIN: No rashes. 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 Entresto has been discontinued due to hypotension Continue Midodrine Neurology evaluated the patient and recommended recommend Jose Francisco scan as outpatient for his tremors. Neurology recommend ophthalmology evaluation as an outpatient. Also recommend MRI of the brain as an outpatient. Labs and medication were reviewed.. Continue same treatment. Continue with symptomatic treatment. Resume home medication. Monitor labs and vitals. DVT and GI prophylaxis. Further recommendations as per clinical course of the patient Dictation was produced using [employer] dictation software. please excuse any grammatical, word or spelling errors. Objective - Vital Signs Vital signs: Vital Signs Temp 98 F 10/30/22 09:24 Pulse 62 10/30/22 11:44 Resp 16 10/30/22 09:24 BP 105/65 10/30/22 09:24 Pulse Ox 98 10/30/22 09:24 FiO2 95 10/28/22 16:06 Intake & Output 10/29/22 10/30/22 10/30/22 18:59 06:59 18:59 Intake Total 193 Balance 193 Intake: Oral 193 Other: Voiding Method Toilet Toilet Toilet # Voids 3 1 - Labs CBC & Chem 7: 10/26/22 06:46 10/26/22 06:46
[2022-10-30] MEDS: PRIMIDONE 25 MG TAB PO SCH ×2 (17:07→21:28)
[2022-10-30] MEDS: MELATONIN 5 MG TABLET PO SCH (21:29)
[2022-10-30] MEDS: ALPRAZolam 0.5 MG TAB PO PRN (21:29)
[2022-10-31] MEDS: LEVOTHYROXINE 50 MCG TAB PO SCH (06:39)
[2022-10-31] MEDS: MIDODRINE 5 MG TAB PO SCH (06:39)
[2022-10-31] MEDS: ALBUTEROL NEBULIZED 2.5 MG/3 ML INHALATION SCH ×2 (07:57→11:30)
[2022-10-31] MEDS: SYMBICORT 160-4.5 MCG INHALER INHALATION SCH (07:57)
[2022-10-31 08:02] VITALS: BP 144/80; TEMP 97.9
[2022-10-31] MEDS: PRIMIDONE 25 MG TAB PO SCH (08:50)
[2022-10-31] MEDS: APIXABAN 5 MG TAB PO SCH (08:51)
[2022-10-31] MEDS: ASPIRIN 325 MG TAB PO SCH (08:51)
[2022-10-31] MEDS: FAMOTIDINE 20 MG TAB PO SCH (08:51)
[2022-10-31] MEDS: CYANOCOBALAMIN 500 MCG TAB PO SCH (08:51)
[2022-10-31] MEDS: METOPROLOL SUCCINATE (ER) 25 MG TAB.ER.24H PO SCH (08:51)
[2022-10-31] MEDS: ATORVASTATIN 80 MG TAB PO SCH (08:52)
[2022-10-31] MEDS: CARBIDOPA-LEVODOPA 10-100 MG 1 EACH TAB PO SCH (08:52)
[2022-10-31] MEDS: SERTRALINE 50 MG TAB PO SCH (08:57)
[2022-10-31 11:32] VITALS: PULSE 65
[2022-10-31 11:37] VITALS: RESP 18
[2022-10-31] MEDS: ALPRAZolam 0.5 MG TAB PO PRN (11:58)
== END 2022-10-31 14:48 | disposition home or self-care (01) ==
LOC: EC 20:05 → 6NMEDSUR 22:58
PROVIDERS: ADMIT Family Medicine; ATTEND Family Medicine
DX: I95.9 Hypotension, unspecified (principal); G20 Parkinson's disease; I42.8 Other cardiomyopathies; I11.0 Hypertensive heart disease with heart failure; I50.22 Chronic systolic (congestive) heart failure; I45.10 Unspecified right bundle-branch block; I25.10 Atherosclerotic heart disease of native coronary artery without angina pectoris; J44.9 Chronic obstructive pulmonary disease, unspecified; E78.5 Hyperlipidemia, unspecified; I48.91 Unspecified atrial fibrillation; E03.9 Hypothyroidism, unspecified; I48.92 Unspecified atrial flutter; I25.2 Old myocardial infarction; G47.30 Sleep apnea, unspecified; M19.90 Unspecified osteoarthritis, unspecified site; R73.03 Prediabetes; F41.9 Anxiety disorder, unspecified; H53.2 Diplopia; R51.9 Headache, unspecified; R55 Syncope and collapse; R53.1 Weakness; R61 Generalized hyperhidrosis; F10.10 Alcohol abuse, uncomplicated; Z79.51 Long term (current) use of inhaled steroids; Z79.01 Long term (current) use of anticoagulants; Z79.890 Hormone replacement therapy; Z79.82 Long term (current) use of aspirin; Z79.899 Other long term (current) drug therapy; Z90.49 Acquired absence of other specified parts of digestive tract; Z86.718 Personal history of other venous thrombosis and embolism; Z87.891 Personal history of nicotine dependence; Z95.810 Presence of automatic (implantable) cardiac defibrillator; Z82.5 Family history of asthma and other chronic lower respiratory diseases; Z80.8 Family history of malignant neoplasm of other organs or systems
CPT/HCPCS: 96376 ×6; 96374; 99285; 36415; 94640 ×11; 94760 ×5; 95816; 93005; 97530 ×3; 97162; 97166; 80053 ×2; 82533; 83735 ×2; 84100; 84484 ×2; 85025 ×2; 85610; 85730; 71046; 93880; 70450; G0378 ×7; J1170 ×5

== ENCOUNTER 2022-12-01 13:16 | Emergency (ER) | payer OTHER ==
[2022-12-01 13:56] VITALS: TEMP 98.3
--- NOTE | 2022-12-01 15:28 | ED ---
General Adult HPI - General Chief complaint: Shortness of Breath Stated complaint: SOB,TREMORS Time Seen by Provider: 12/01/22 15:00 Source: patient, RN notes reviewed, old records reviewed Mode of arrival: wheelchair Limitations: no limitations - History of Present Illness Initial comments: This is a 62-year-old male who presents emergency Department stating that since this morning he's had a little shortness of breath per patient denies any chest pain. Patient denies any cough patient denies fever chills. Patient denies any palpitation. Patient denies any lightheadedness or dizziness. Patient states he also has had tremors in his arms for quite a while. Patient states he is not multiple medications and today he called Dr. Burgos and told about the tremors and Dr. Alexander told him if it's bothering him enough to stop the emergency departme nt. Patient did not bother saw Dr. Alcaraz that he was having any shortness of breath. - Related Data Home Medications Medication Instructions Recorded Confirmed Albuterol Sulfate [Ventolin HFA] 2 puff INHALATION RT-Q6H PRN 04/28/22 10/25/22 Atorvastatin [Lipitor] 80 mg PO DAILY 04/28/22 10/25/22 Nitroglycerin Sl Tabs [Nitrostat] 0.4 mg SL Q5M PRN 04/28/22 10/25/22 Fluticasone/Umeclidin/Vilanter 1 puff INHALATION RT-DAILY 06/28/22 10/25/22 [Trelegy Ellipta 200-62.5-25] Budesonide/Formoterol Fumarate 2 puff INHALATION RT-BID 07/02/22 10/25/22 [Symbicort 160-4.5 Mcg Inhaler] Carbidopa-Levodopa 10-100 mg 1 tab PO TID 07/02/22 10/25/22 [Sinemet 10-100 mg] Melatonin 5 mg PO HS 07/02/22 10/25/22 Acetaminophen Tab [Tylenol] 650 mg PO Q6H PRN 09/16/22 10/25/22 ALPRAZolam [Xanax] 0.5 mg PO TID PRN 10/18/22 10/25/22 Albuterol Nebulized [Ventolin 2.5 mg INHALATION RT-QID 10/18/22 10/25/22 Nebulized] Sertraline [Zoloft] 50 mg PO DAILY 10/18/22 10/25/22 methylPREDNISolone Dose Pack See Taper PO DIRECTED 10/25/22 10/25/22 [Medrol Dose Pack] Previous Rx's Medication Instructions Recorded Apixaban [Eliquis] 5 mg PO BID #30 tab 05/14/22 Cyanocobalamin [Vitamin B-12] 1,000 mcg PO DAILY tab 06/09/22 Famotidine [Pepcid] 20 mg PO BID 90 Days #180 tab 06/09/22 Levothyroxine Sodium [Synthroid] 50 mcg PO DAILY@0630 90 Days #90 06/09/22 tab Midodrine [ProAmatine] 10 mg PO AC-TID 30 Days #90 tab 09/13/22 Metoprolol Succinate (ER) [Toprol 12.5 mg PO DAILY #30 tab 09/21/22 XL] Aspirin 325 mg PO DAILY tab 10/21/22 Primidone [Mysoline] 25 mg PO TID 7 Days #21 tab 10/31/22 lisinopriL [Zestril] 2.5 mg PO DAILY 30 Days #30 tab 10/31/22 Allergies Allergy/AdvReac Type Severity Reaction Status Date / Time No Known Allergies Allergy Verified 12/01/22 13:56 Review of Systems ROS Statement: Those systems with pertinent positive or pertinent negative responses have been documented in the HPI. ROS Other: All systems not noted in ROS Statement are negative. Past Medical History Past Medical History: Atrial Fibrillation, Heart Failure, COPD, Hyperlipidemia, Hypertension, Myocardial Infarction ([place]), Osteoarthritis ([place]), Sleep Apnea/CPAP/BIPAP, Syncope Additional Past Medical History / Comment(s): see Dr Hester's H&P,Parkinson's,no mobility devices,uses O2 @ 2 L NC at hs and uses prn during the day(insurance is not covering home oxygen-pt purchased an oxygen machine that makes it's own oxygen off of [employer]),will be starting cpap in 3 weeks, DVT L subclavian/surgically removed, nonischemic cardiomyopathy/AICD/pacer in place, past ETOH - no use since 04/2020 Last Myocardial Infarction Date:: 02/25/20 History of Any Multi-Drug Resistant Organisms: None Reported Past Surgical History: AICD, Appendectomy, Cardiac Ablation, Cholecystectomy, Heart Catheterization, Hernia Repair, Pacemaker Additional Past Surgical History / Comment(s): 04/27/21 lap cholecystectomy, L upper extremity venogram/thrombolysis/thrombectomy, Carly Fundiplication 08/2022 Past Anesthesia/Blood Transfusion Reactions: No Reported Reaction Type of Cardiac Device: Permanent Pacemaker, AICD Device Placement Date:: 05/01/20 Past Psychological History: Anxiety Smoking Status: Former smoker Past Alcohol Use History: None Reported Past Drug Use History: None Reported - Past Family History Mother Family Medical History: Cancer Additional Family Medical History / Comment(s): Cancer in jaw. Father Family Medical History: COPD General Exam - General Exam Comments Initial Comments: GENERAL: Patient is well-developed and well-nourished. Patient is nontoxic and well- hydrated and is in no acute distress. Patient speaking in full sentences and in no respiratory distress whatsoever his pulse ox is 98% on room air ENT: Neck is soft and supple. No significant lymphadenopathy is noted. Oropharynx is clear. Moist mucous membranes. Neck has full range of motion without eliciting any pain. EYES: The sclera were anicteric and conjunctiva were pink and moist. Extraocular movements were intact and pupils were equal round and reactive to light. Eyelids were unremarkable. PULMONARY: Unlabored respirations. Good breath sounds bilaterally. No audible rales rhonchi or wheezing was noted. CARDIOVASCULAR: There is a regular rate and rhythm without any murmurs gallops or rubs. ABDOMEN: Soft and nontender with normal bowel sounds. SKIN: Skin is clear with no lesions or rashes and otherwise unremarkable. NEUROLOGIC: Patient is alert and oriented x3. Cranial nerves II through XII are grossly intact. Motor and sensory are also intact. Normal speech, volume and content. Symmetrical smile. I left the patient's room and looked back in from the adjacent room the patient had no tremoring of either arm at that time. He also never had any tremoring of the left arm until he pulled the sheets back. MUSCULOSKELETAL: Normal extremities with adequate strength and full range of motion. No lower extremity swelling or edema. No calf tenderness. LYMPHATICS: No significant lymphadenopathy is noted PSYCHIATRIC: Normal psychiatric evaluation. Limitations: no limitations Course Vital Signs 12/01/22 13:52 Temperature 98.3 F Pulse Rate 90 Respiratory 22 Rate Blood Pressure 134/83 O2 Sat by Pulse 97 Oximetry Medical Decision Making - Medical Decision Making EKG is interpreted by myself. EKG shows a sinus rhythm at 60 bpm OR interval 168 QRSs 149 QT interval is 420 QTC is 447. Patient's EKG shows no ST segment elevation or depression. Patient does have a right bundle branch block. Was pt. sent in by a medical professional or institution (, [facility], [facility], urgent care, hospital, or correction...) When possible be specific @ -[facility] sent the patient to be evaluated Did you speak to anyone other than the patient for history (EMS, parent, family, police, friend...)? What history was obtained from this source @ -No Did you review nursing and triage notes (agree or disagree)? Why? @ -I reviewed and agree with nursing and triage notes Were old charts reviewed (outside hosp., previous admission, EMS record, old EKG, old radiological studies, urgent care reports/EKG's, correction records)? Report findings @ -I reviewed prior charts her lab work on this patient Differential Diagnosis (chest pain, altered mental status, abdominal pain women, abdominal pain men, vaginal bleeding, weakness, fever, dyspnea, syncope, headache, dizziness, GI bleed, back pain, seizure, CVA, palpatations, mental health, musculoskeletal)? @ -Differential Dyspnea: Coronary syndrome, arrhythmia, tamponade, asthma, COPD, pulmonary embolism, pneumonia, pneumothorax, pulmonary effusion, anaphylaxis, diabetic ketoacidosis, flailed chest, pulmonary contusion, diaphragmatic rupture, anemia, neuromuscular, this is not meant to be an all-inclusive list. EKG interpreted by me (3pts min.). @ -As above X-rays interpreted by me (1pt min.). @ -Chest x-ray shows no acute abnormality CT interpreted by me (1pt min.). @ -None done U/S interpreted by me (1pt. min.). @ -None done What testing was considered but not performed or refused? (CT, X-rays, U/S, labs)? Why? @ -None What meds were considered but not given or refused? Why? @ -None Did you discuss the management of the patient with other professionals (professionals i.e. [facility], [facility], lab, RT, psych nurse, social worker school, vibrator equipment tester, teacher, public records officer, case liner)? Give summary @ -I spoke with Dr. Burgos he agreed that the patient was in no respiratory distress and the patient's pulse ox was that the patient could be discharged home if we felt comfortable. Was smoking cessation discussed for >3mins.? @ -No Was critical care preformed (if so, how long)? @ -No Were there social determinants of health that impacted care today? How? (Homelessness, low income, unemployed, alcoholism, drug addiction, transportation, low edu. Level, literacy, decrease access to med. care, group home, rehab)? @ -No Was there de-escalation of care discussed even if they declined (Discuss DNR or withdrawal of care, Hospice)? DNR status @ -No What co-morbidities impacted this encounter? (DM, HTN, Smoking, COPD, CAD, Cancer, CVA, ARF, Chemo, Hep., AIDS, mental health diagnosis, sleep apnea, morbid obesity)? @ -None Was patient admitted / discharged? Hospital course, mention meds given and rou te, prescriptions, significant lab abnormalities, going to OR and other pertinent info. @ -Patient's chest x-ray showed no acute abnormality. Patient's lab work was normal. Patient's pulse ox was 98% on room air throughout his stay. Patient also had some tremoring when I was talking to patient however when I went back in later and woke the patient up. No tremoring on either side and also during the course of his stay I looked in on multiple times and he was not tremoring on every occasion. Undiagnosed new problem with uncertain prognosis? @ -No Drug Therapy requiring intensive monitoring for toxicity (Heparin, Nitro, Insulin, Cardizem)? @ -No Were any procedures done? @ -No Diagnosis/symptom? @ -Transient dyspnea Acute, or Chronic, or Acute on Chronic? @ -Acute Uncomplicated (without systemic symptoms) or Complicated (systemic symptoms)? @ -Uncomplicated Side effects of treatment? @ -No Exacerbation, Progression, or Severe Exacerbation? @ -No Poses a threat to life or bodily function? How? (Chest pain, [place], [place], pneumonia, PE, COPD, DKA, ARF, appy, cholecystitis, CVA, Diverticulitis, Homicidal, Suicidal, threat to staff... and all critical care pts) @ -No - Lab Data Result diagrams: 12/01/22 15:34 12/01/22 15:34 Lab Results 12/01/22 12/01/22 Range/Units 15:34 15:34 WBC 8.1 (3.8-10.6) k/uL RBC 4.47 (4.30-5.90) m/uL Hgb 13.5 (13.0-17.5) gm/dL Hct 41.0 (39.0-53.0) % MCV 91.9 (80.0-100.0) fL MCH 30.2 (25.0-35.0) pg MCHC 32.9 (31.0-37.0) g/dL RDW 13.5 (11.5-15.5) % Plt Count 298 (150-450) k/uL MPV 8.3 Neutrophils % 63 % Lymphocytes % 24 % Monocytes % 7 % Eosinophils % 3 % Basophils % 0 % Neutrophils # 5.1 (1.3-7.7) k/uL Lymphocytes # 2.0 (1.0-4.8) k/uL Monocytes # 0.6 (0-1.0) k/uL Eosinophils # 0.2 (0-0.7) k/uL Basophils # 0.0 (0-0.2) k/uL Sodium 136 L (137-145) mmol/L Potassium 4.6 (3.5-5.1) mmol/L Chloride 103 (98-107) mmol/L Carbon Dioxide 21 L (22-30) mmol/L Anion Gap 12 mmol/L BUN 14 (9-20) mg/dL Creatinine 0.75 (0.66-1.25) mg/dL Est GFR (CKD-EPI)AfAm >90 (>60 ml/min/1.73 sqM) Est GFR (CKD-EPI)NonAf >90 (>60 ml/min/1.73 sqM) Glucose 89 (74-99) mg/dL Calcium 9.3 (8.4-10.2) mg/dL Magnesium 2.0 (1.6-2.3) mg/dL Total Bilirubin 0.5 (0.2-1.3) mg/dL AST 31 (17-59) U/L ALT 49 (4-49) U/L Alkaline Phosphatase 99 (38-126) U/L Total Protein 7.7 (6.3-8.2) g/dL Albumin 4.6 (3.5-5.0) g/dL Disposition Clinical Impression: Mild shortness of breath, Tremor Disposition: HOME SELF-CARE Is patient prescribed a controlled substance at d/c from ED?: No Referrals: Felix Burgos MD [Primary Care Provider] - 1-2 days Time of Disposition: 16:45
[2022-12-01 15:51] LABS: Basophils % (A) 0 %; Eosinophils # (A) 0.2 k/uL (0-0.7); Eosinophils % (A) 3 %; HGB 13.5 gm/dL (13.0-17.5); Lymphocytes % (A) 24 %; MCH 30.2 pg (25.0-35.0); MCHC 32.9 g/dL (31.0-37.0); MCV 91.9 fL (80.0-100.0); Mean Platelet Volume 8.3; Monocytes # (A) 0.6 k/uL (0-1.0); Monocytes % (A) 7 %; Neutrophils # (A) 5.1 k/uL (1.3-7.7); Neutrophils % (A) 63 %; Platelet Count 298 k/uL (150-450); RBC 4.47 m/uL (4.30-5.90); RDW 13.5 % (11.5-15.5); WBC 8.1 k/uL (3.8-10.6)
[2022-12-01 16:00] LABS: ALT 49 U/L (4-49); AST 31 U/L (17-59); African American GFR (CKD) >90 (>60 ml/min/1.73 sqM); Albumin 4.6 g/dL (3.5-5.0); Alkaline Phosphatase 99 U/L (38-126); Anion Gap 12 mmol/L; Blood Urea Nitrogen 14 mg/dL (9-20); Calcium 9.3 mg/dL (8.4-10.2); Carbon Dioxide 21 mmol/L (22-30); Chloride 103 mmol/L (98-107); Glucose 89 mg/dL (74-99); Non-African American GFR(CKD) >90 (>60 ml/min/1.73 sqM); Potassium 4.6 mmol/L (3.5-5.1); Sodium 136 mmol/L (137-145); Total Bilirubin 0.5 mg/dL (0.2-1.3); Total Protein 7.7 g/dL (6.3-8.2)
--- NOTE | 2022-12-01 16:06 | XR ---
EXAMINATION TYPE: XR chest 2V DATE OF EXAM: 12/01/2022 3:56 PM COMPARISON: Chest radiographs from 7 11/25/2022 TECHNIQUE: XR chest 2V Frontal and lateral views of the chest. CLINICAL INDICATION:Male, 62 years old with history of Difficulty breathing ; FINDINGS: Lungs/Pleura: There is no evidence of pleural effusion, focal consolidation, or pneumothorax. Pulmonary vascularity: Unremarkable. Heart/mediastinum: Cardiomediastinal silhouette is unremarkable. Single-lead cardiac conduction devic e overlying the left hemithorax with lead projecting over the right ventricle. Musculoskeletal: No acute osseous pathology. IMPRESSION: No acute cardiopulmonary disease/process.
[2022-12-01 17:07] VITALS: BP 104/86; PULSE 68; RESP 16
== END 2022-12-01 17:07 | disposition home or self-care (01) ==
LOC: EC 13:16
DX: R06.02 Shortness of breath (principal); R25.1 Tremor, unspecified; I11.0 Hypertensive heart disease with heart failure; I25.2 Old myocardial infarction; I48.91 Unspecified atrial fibrillation; I50.9 Heart failure, unspecified; J44.9 Chronic obstructive pulmonary disease, unspecified; G47.30 Sleep apnea, unspecified; M19.90 Unspecified osteoarthritis, unspecified site; E78.5 Hyperlipidemia, unspecified; F41.9 Anxiety disorder, unspecified; Z79.51 Long term (current) use of inhaled steroids; Z79.899 Other long term (current) drug therapy; Z87.891 Personal history of nicotine dependence
CPT/HCPCS: 36415; 71046; 80053; 83735; 85025; 93005; 99285

== ENCOUNTER → 2022-12-01 | Outpatient (CLI) | payer OTHER ==
--- NOTE | 2022-12-02 00:15 | NM ---
EXAMINATION TYPE: NM DatScan Brain SPECT DATE OF EXAM: 12/01/2022 COMPARISON: NONE CLINICAL INDICATION: Male, 62 years old with history of G25.2 OTHER SPECIFIED FORMS OF TREMOR; TECHNIQUE: 10 drops of Lugol's solution was administered 1 hour prior to injection as a thyroid bloc bertrand agent. After the administration of 5.0 mCi I-123 Ioflupane DaTscan. Images obtained [address] injection. SPECT images of the brain were acquired with axial and coronal reconstructions. FINDINGS: The uptake of radiotracer within the patient's caudate nuclei and putamina is symmetric and crescent- shaped. IMPRESSION: There is no scintigraphic evidence of a neurodegenerative disorder (Parkinson's disease, Multisystem atrophy or Progressive supranuclear palsy), as there is symmetric uptake of I-123 Ioflupan (DaTscan) within the caudate nuclei and putamina.
== END | disposition home or self-care (01) ==
LOC: RADNMMAIN 08:21
PROVIDERS: ATTEND Family Medicine
DX: G25.2 Other specified forms of tremor (principal)
CPT/HCPCS: 78803; A9584

== ENCOUNTER 2023-03-15 14:36 | Emergency (ER) | payer OTHER ==
[2023-03-15 14:42] VITALS: RESP 18; TEMP 98.2
--- NOTE | 2023-03-15 16:02 | ED ---
General Adult HPI - General Chief complaint: Chest Pain Stated complaint: hypertension Time Seen by Provider: 03/15/23 14:45 Source: patient, RN notes reviewed, old records reviewed Mode of arrival: wheelchair Limitations: no limitations - History of Present Illness Initial comments: This is a 62-year-old male who presents emergency Department stating he has a history of some high blood pressure. Patient came in today because he was little dizzy earlier and he states he took his blood pressure and it was a little high so he was concerned so he came in. Patient states he also had a sharp chest pain in the center of his chest that lasts 1 second and went away and has not returned. Patient also complains of some ringing in his ears but he states his been ongoing for 6 months is noticing his primary medical care doctor for. Patient denies any headache patient denies any numbness or weakness. Patient denies any syncopal episode or near syncopal episode. Patient denies any falls. Patient denies any shortness of breath or difficulty breathing. Patient's abdominal pain palpitations, nausea vomiting diarrhea. - Related Data Home Medications Medication Instructions Recorded Confirmed Albuterol Sulfate [Ventolin HFA] 2 puff INHALATION RT-Q6H PRN 04/28/22 10/25/22 Atorvastatin [Lipitor] 80 mg PO DAILY 04/28/22 10/25/22 Nitroglycerin Sl Tabs [Nitrostat] 0.4 mg SL Q5M PRN 04/28/22 10/25/22 Fluticasone/Umeclidin/Vilanter 1 puff INHALATION RT-DAILY 06/28/22 10/25/22 [Trelegy Ellipta 200-62.5-25] Budesonide/Formoterol Fumarate 2 puff INHALATION RT-BID 07/02/22 10/25/22 [Symbicort 160-4.5 Mcg Inhaler] Carbidopa-Levodopa 10-100 mg 1 tab PO TID 07/02/22 10/25/22 [Sinemet 10-100 mg] Melatonin 5 mg PO HS 07/02/22 10/25/22 Acetaminophen Tab [Tylenol] 650 mg PO Q6H PRN 09/16/22 10/25/22 ALPRAZolam [Xanax] 0.5 mg PO TID PRN 10/18/22 10/25/22 Albuterol Nebulized [Ventolin 2.5 mg INHALATION RT-QID 10/18/22 10/25/22 Nebulized] Sertraline [Zoloft] 50 mg PO DAILY 10/18/22 10/25/22 methylPREDNISolone Dose Pack See Taper PO DIRECTED 10/25/22 10/25/22 [Medrol Dose Pack] Previous Rx's Medication Instructions Recorded Apixaban [Eliquis] 5 mg PO BID #30 tab 05/14/22 Cyanocobalamin [Vitamin B-12] 1,000 mcg PO DAILY tab 06/09/22 Famotidine [Pepcid] 20 mg PO BID 90 Days #180 tab 06/09/22 Levothyroxine Sodium [Synthroid] 50 mcg PO DAILY@0630 90 Days #90 06/09/22 tab Midodrine [ProAmatine] 10 mg PO AC-TID 30 Days #90 tab 09/13/22 Metoprolol Succinate (ER) [Toprol 12.5 mg PO DAILY #30 tab 09/21/22 XL] Aspirin 325 mg PO DAILY tab 10/21/22 Primidone [Mysoline] 25 mg PO TID 7 Days #21 tab 10/31/22 lisinopriL [Zestril] 2.5 mg PO DAILY 30 Days #30 tab 10/31/22 Allergies Allergy/AdvReac Type Severity Reaction Status Date / Time No Known Allergies Allergy Verified 03/15/23 14:40 Review of Systems ROS Statement: Those systems with pertinent positive or pertinent negative responses have been documented in the HPI. ROS Other: All systems not noted in ROS Statement are negative. Past Medical History Past Medical History: Atrial Fibrillation, Heart Failure, COPD, Hyperlipidemia, Hypertension, Myocardial Infarction ([place]), Osteoarthritis (OA), Sleep Apnea/CPA P/BIPAP, Syncope Additional Past Medical History / Comment(s): see Dr Hester's H&P,Parkinson's,no mobility devices,uses O2 @ 2 L NC at hs and uses prn during the day(insurance is not covering home oxygen-pt purchased an oxygen machine that makes it's own oxygen off of [employer]),will be starting cpap in 3 weeks, DVT L subclavian/surgically removed, nonischemic cardiomyopathy/AICD/pacer in place, past ETOH - no use since 04/2020 Last Myocardial Infarction Date:: 02/25/20 History of Any Multi-Drug Resistant Organisms: None Reported Past Surgical History: AICD, Appendectomy, Cardiac Ablation, Cholecystectomy, Heart Catheterization, Hernia Repair, Pacemaker Additional Past Surgical History / Comment(s): 04/27/21 lap cholecystectomy, L upper extremity venogram/thrombolysis/thrombectomy, Carly Fundiplication 08/2022 Past Anesthesia/Blood Transfusion Reactions: No Reported Reaction Type of Cardiac Device: Permanent Pacemaker, AICD Device Placement Date:: 05/01/20 Past Psychological History: Anxiety Smoking Status: Former smoker Past Alcohol Use History: None Reported Past Drug Use History: None Reported - Past Family History Mother Family Medical History: Cancer Additional Family Medical History / Comment(s): Cancer in jaw. Father Family Medical History: COPD General Exam - General Exam Comments Initial Comments: GENERAL: Patient is well-developed and well-nourished. Patient is nontoxic and well- hydrated and is in mild distress. ENT: Neck is soft and supple. No significant lymphadenopathy is noted. Oropharynx is clear. Moist mucous membranes. Neck has full range of motion without eliciting any pain. EYES: The sclera were anicteric and conjunctiva were pink and moist. Extraocular movements were intact and pupils were equal round and reactive to light. Eyelids were unremarkable. PULMONARY: Unlabored respirations. Good breath sounds bilaterally. No audible rales rhonchi or wheezing was noted. CARDIOVASCULAR: There is a regular rate and rhythm without any murmurs gallops or rubs. ABDOMEN: Soft and nontender with normal bowel sounds. No palpable organomegaly was noted. There is no palpable pulsatile mass. SKIN: Skin is clear with no lesions or rashes and otherwise unremarkable. NEUROLOGIC: Patient is alert and oriented x3. Cranial nerves II through XII are grossly intact. Motor and sensory are also intact. Normal speech, volume and content. Symmetrical smile. She has a tremor in the right hand which she states is chronic MUSCULOSKELETAL: Normal extremities with adequate strength and full range of motion. No lower extremity swelling or edema. No calf tenderness. LYMPHATICS: No significant lymphadenopathy is noted PSYCHIATRIC: Normal psychiatric evaluation. Limitations: no limitations Course Vital Signs 03/15/23 03/15/23 14:37 15:53 Temperature 98.2 F Pulse Rate 77 Pulse Rate [ 66 Sitting Medicaid Biller] Pulse Rate [ 69 Standing Medicaid Biller ] Pulse Rate [ 70 Supine Medicaid Biller] Respiratory 18 Rate Blood Pressure 138/82 Blood Pressure 129/87 [Left Arm Sitting] Blood Pressure 117/83 [Left Arm Standing] Blood Pressure 126/81 [Left Arm Supine] O2 Sat by Pulse 97 Oximetry Medical Decision Making - Medical Decision Making EKG is interpreted by myself. EKG shows a sinus rhythm at 73 bpm MD interval is on a 49 QRSs 153 QT interval 44 QTC is 431 per patient's EKG shows no ST segment elevation or depression per patient's right bundle branch block. Was pt. sent in by a medical professional or institution (, PA, TISSUE SPECIALIST, urgent care, hospital, or residential...) When possible be specific @ -No Did you speak to anyone other than the patient for history (EMS, parent, family, police, friend...)? What history was obtained from this source @ -No Did you review nursing and triage notes (agree or disagree)? Why? @ -I reviewed and agree with nursing and triage notes Were old charts reviewed (outside hosp., previous admission, EMS record, old EKG, old radiological studies, urgent care reports/EKG's, residential records)? Report findings @ -I reviewed prior charts from prior. Lab work. Differential Diagnosis (chest pain, altered mental status, abdominal pain women, abdominal pain men, vaginal bleeding, weakness, fever, dyspnea, syncope, headache, dizziness, GI bleed, back pain, seizure, CVA, palpatations, mental health, musculoskeletal)? @ -Differential Dizziness: Benign paroxysmal positional Vertigo, Menieres disease, otitis media, acoustic neuroma, vertebrobasilar insufficiency, cerebellar stroke, encephalitis, hypovolemic, arrhythmia, coronary artery syndrome, anemia, this is not meant to be an all-inclusive list EKG interpreted by me (3pts min.). @ -As above X-rays interpreted by me (1pt min.). @ -Chest x-ray shows No acute abnormality CT interpreted by me (1pt min.). @ -None done U/S interpreted by me (1pt. min.). @ -None done What testing was considered but not performed or refused? (CT, X-rays, U/S, labs)? Why? @ -None What meds were considered but not given or refused? Why? @ -None Did you discuss the management of the patient with other professionals (profess ionals i.e. Dr., PA, TISSUE SPECIALIST, lab, RT, psych nurse, administrator social welfare, milk house worker, teacher, evp chief exploration officer, field nurse case manager)? Give summary @ -No Was smoking cessation discussed for >3mins.? @ -No Was critical care preformed (if so, how long)? @ -No Were there social determinants of health that impacted care today? How? (Homelessness, low income, unemployed, alcoholism, drug addiction, transportation, low edu. Level, literacy, decrease access to med. care, half-way, rehab)? @ -No Was there de-escalation of care discussed even if they declined (Discuss DNR or withdrawal of care, Hospice)? DNR status @ -No What co-morbidities impacted this encounter? (DM, HTN, Smoking, COPD, CAD, Cancer, CVA, ARF, Chemo, Hep., AIDS, mental health diagnosis, sleep apnea, morbid obesity)? @ -None Was patient admitted / discharged? Hospital course, mention meds given and route, prescriptions, significant lab abnormalities, going to OR and other pertinent info. @ -No distress and was eating in the emergency department and felt back to his baseline. Blood pressures been normal bilaterally as well as orthostatics. Patient will be discharged home to follow-up with primary medical care doctor Undiagnosed new problem with uncertain prognosis? @ -No Drug Therapy requiring intensive monitoring for toxicity (Heparin, Nitro, Insulin, Cardizem)? @ -No Were any procedures done? @ -No Diagnosis/symptom? @ -Dizziness Acute, or Chronic, or Acute on Chronic? @ -Acute Uncomplicated (without systemic symptoms) or Complicated (systemic symptoms)? @ -Complicated Side effects of treatment? @ -No Exacerbation, Progression, or Severe Exacerbation? @ -No Poses a threat to life or bodily function? How? (Chest pain, [place], [place], pneumonia, PE, COPD, DKA, ARF, appy, cholecystitis, CVA, Diverticulitis, Homicidal, Suicidal, threat to staff... and all critical care pts) @ -No - Lab Data Result diagrams: 03/15/23 15:29 03/15/23 15:29 Lab Results 03/15/23 03/15/23 03/15/23 Range/Units 15:29 15:29 15:29 WBC 8.0 (3.8-10.6) k/uL RBC 4.55 (4.30-5.90) m/uL Hgb 13.7 (13.0-17.5) gm/dL Hct 41.3 (39.0-53.0) % MCV 90.8 (80.0-100.0) fL MCH 30.2 (25.0-35.0) pg MCHC 33.2 (31.0-37.0) g/dL RDW 14.1 (11.5-15.5) % Plt Count 290 (150-450) k/uL MPV 8.1 Neutrophils % 65 % Lymphocytes % 23 % Monocytes % 7 % Eosinophils % 2 % Basophils % 0 % Neutrophils # 5.2 (1.3-7.7) k/uL Lymphocytes # 1.9 (1.0-4.8) k/uL Monocytes # 0.6 (0-1.0) k/uL Eosinophils # 0.2 (0-0.7) k/uL Basophils # 0.0 (0-0.2) k/uL PT 10.8 (10.0-12.5) sec INR 1.0 (<1.2) APTT 26.0 (22.0-30.0) sec Sodium 137 (137-145) mmol/L Potassium 4.3 (3.5-5.1) mmol/L Chloride 102 (98-107) mmol/L Carbon Dioxide 23 (22-30) mmol/L Anion Gap 12 mmol/L BUN 16 (9-20) mg/dL Creatinine 0.78 (0.66-1.25) mg/dL Est GFR (CKD-EPI)AfAm >90 (>60 ml/min/1.73 sqM) Est GFR (CKD-EPI)NonAf >90 (>60 ml/min/1.73 sqM) Glucose 94 (74-99) mg/dL Calcium 10.0 (8.4-10.2) mg/dL Magnesium 1.8 (1.6-2.3) mg/dL Total Bilirubin 0.4 (0.2-1.3) mg/dL AST 27 (17-59) U/L ALT 37 (4-49) U/L Alkaline Phosphatase 81 (38-126) U/L Troponin I (0.000-0.034) ng/mL Total Protein 7.4 (6.3-8.2) g/dL Albumin 4.4 (3.5-5.0) g/dL Lipase 59 (23-300) U/L 03/15/23 Range/Units 15:29 WBC (3.8-10.6) k/uL RBC (4.30-5.90) m/uL Hgb (13.0-17.5) gm/dL Hct (39.0-53.0) % MCV (80.0-100.0) fL MCH (25.0-35.0) pg MCHC (31.0-37.0) g/dL RDW (11.5-15.5) % Plt Count (150-450) k/uL MPV Neutrophils % % Lymphocytes % % Monocytes % % Eosinophils % % Basophils % % Neutrophils # (1.3-7.7) k/uL Lymphocytes # (1.0-4.8) k/uL Monocytes # (0-1.0) k/uL Eosinophils # (0-0.7) k/uL Basophils # (0-0.2) k/uL PT (10.0-12.5) sec INR (<1.2) APTT (22.0-30.0) sec Sodium (137-145) mmol/L Potassium (3.5-5.1) mmol/L Chloride (98-107) mmol/L Carbon Dioxide (22-30) mmol/L Anion Gap mmol/L BUN (9-20) mg/dL Creatinine (0.66-1.25) mg/dL Est GFR (CKD-EPI)AfAm (>60 ml/min/1.73 sqM) Est GFR (CKD-EPI)NonAf (>60 ml/min/1.73 sqM) Glucose (74-99) mg/dL Calcium (8.4-10.2) mg/dL Magnesium (1.6-2.3) mg/dL Total Bilirubin (0.2-1.3) mg/dL AST (17-59) U/L ALT (4-49) U/L Alkaline Phosphatase (38-126) U/L Troponin I <0.012 (0.000-0.034) ng/mL Total Protein (6.3-8.2) g/dL Albumin (3.5-5.0) g/dL Lipase (23-300) U/L Disposition Clinical Impression: Dizziness Disposition: HOME SELF-CARE Instructions (If sedation given, give patient instructions): Dizziness (ED) Is patient prescribed a controlled substance at d/c from ED?: No Referrals: Felix Burgos MD [Primary Care Provider] - 1-2 days Time of Disposition: 17:38
[2023-03-15 16:07] LABS: Basophils % (A) 0 %; Eosinophils # (A) 0.2 k/uL (0-0.7); Eosinophils % (A) 2 %; HCT 41.3 % (39.0-53.0); HGB 13.7 gm/dL (13.0-17.5); Lymphocytes # (A) 1.9 k/uL (1.0-4.8); Lymphocytes % (A) 23 %; MCH 30.2 pg (25.0-35.0); MCHC 33.2 g/dL (31.0-37.0); MCV 90.8 fL (80.0-100.0); Mean Platelet Volume 8.1; Monocytes # (A) 0.6 k/uL (0-1.0); Monocytes % (A) 7 %; Neutrophils # (A) 5.2 k/uL (1.3-7.7); Neutrophils % (A) 65 %; Platelet Count 290 k/uL (150-450); RBC 4.55 m/uL (4.30-5.90); RDW 14.1 % (11.5-15.5)
[2023-03-15 16:23] LABS: ALT 37 U/L (4-49); AST 27 U/L (17-59); African American GFR (CKD) >90 (>60 ml/min/1.73 sqM); Albumin 4.4 g/dL (3.5-5.0); Alkaline Phosphatase 81 U/L (38-126); Anion Gap 12 mmol/L; Blood Urea Nitrogen 16 mg/dL (9-20); Carbon Dioxide 23 mmol/L (22-30); Chloride 102 mmol/L (98-107); Glucose 94 mg/dL (74-99); Lipase 59 U/L (23-300); Magnesium 1.8 mg/dL (1.6-2.3); Non-African American GFR(CKD) >90 (>60 ml/min/1.73 sqM); Potassium 4.3 mmol/L (3.5-5.1); Sodium 137 mmol/L (137-145); Total Bilirubin 0.4 mg/dL (0.2-1.3); Total Protein 7.4 g/dL (6.3-8.2)
[2023-03-15 16:37] LABS: Prothrombin Time 10.8 sec (10.0-12.5)
--- NOTE | 2023-03-15 17:03 | XR ---
EXAMINATION TYPE: XR chest 2V DATE OF EXAM: 03/15/2023 COMPARISON: 12/01/2022 INDICATION: Chest pain TECHNIQUE: Frontal and lateral views of the chest are obtained. FINDINGS: The heart size is normal. Pacemaker overlies left chest. The pulmonary vasculature is normal. The lungs are clear. IMPRESSION: 1. No acute pulmonary process.
[2023-03-15 18:27] VITALS: BP 122/88; PULSE 72
== END 2023-03-15 18:09 | disposition home or self-care (01) ==
LOC: EC 14:36
DX: R42 Dizziness and giddiness (principal); I48.91 Unspecified atrial fibrillation; I11.0 Hypertensive heart disease with heart failure; I50.9 Heart failure, unspecified; J44.9 Chronic obstructive pulmonary disease, unspecified; M19.90 Unspecified osteoarthritis, unspecified site; I25.2 Old myocardial infarction; E78.5 Hyperlipidemia, unspecified; F41.9 Anxiety disorder, unspecified; Z86.718 Personal history of other venous thrombosis and embolism; Z87.891 Personal history of nicotine dependence; Z79.51 Long term (current) use of inhaled steroids; Z79.01 Long term (current) use of anticoagulants; Z79.899 Other long term (current) drug therapy
CPT/HCPCS: 36415; 71046; 80053; 83690; 83735; 84484; 85025; 85610; 85730; 93005; 99285

== ENCOUNTER → 2023-06-21 | Outpatient (CLI) | payer OTHER | END | disposition home or self-care (01) | LOC: LABWHC1 14:08 | PROVIDERS: ATTEND Internal Medicine Clinical Cardiac Electrophysiology | DX: I48.92 Unspecified atrial flutter (principal) | CPT/HCPCS: 36415; 84443 ==

== ENCOUNTER 2023-11-19 02:00 | Observation (INO) | payer OTHER ==
[~2023-11-19 02:00] MED LIST changes: -ACETAMINOPHEN TAB 500 MG TAB PO PRN; +ALPRAZolam 0.25 MG TAB ONE; +ASPIRIN 81 MG ONE; -HEPARIN SODIUM,PORCINE/PF 5,000 UNIT/0.5 ML SYRINGE SQ PRN; +MAGNESIUM SULFATE-D5W PMX 100 ML IVPB ONE; +METOPROLOL TARTRATE 5 MG/5 ML VIAL IVP ONE; +MORPHINE SULFATE 2 MG/ML SYRINGE ONE; +MORPHINE SULFATE 4 MG/ML SYRINGE ONE; +ONDANSETRON 4 MG/2 ML VIAL ONE
[2023-11-19] MEDS ORDERED: ASPIRIN 81 MG ONE (08:38)
[2023-11-19] MEDS ORDERED: ACETAMINOPHEN TAB 325 MG TAB ONE ×2 (08:38→22:20)
[2023-11-19] MEDS ORDERED: METOPROLOL TARTRATE 12.5 MG TAB ONE (08:38)
[2023-11-19] MEDS ORDERED: APIXABAN 5 MG TAB ONE ×2 (09:22→21:05)
[2023-11-19] MEDS ORDERED: ATORVASTATIN 40 MG TAB ONE ×2 (09:23→21:06)
[2023-11-19] MEDS ORDERED: lisinopriL 10 MG TAB ONE (09:23)
[2023-11-19] MEDS ORDERED: cefTRIAXone 1 GM VIAL ONE (13:47)
[2023-11-19] MEDS ORDERED: methylPREDNISolone SOD SUCCI 40 MG/ML 1 ML VIAL ONE ×3 (13:47→21:12)
[2023-11-19] MEDS ORDERED: METOPROLOL TARTRATE 25 MG TAB ONE (21:04)
[2023-11-19] MEDS ORDERED: ALPRAZolam 0.25 MG TAB ONE (22:19)
[2023-11-19] MEDS ORDERED: MELATONIN 5 MG TABLET ONE (22:27)
[2023-11-19] MEDS ORDERED: DOXYCYCLINE 100 MG CAP ONE (23:59)
[2023-11-19] MEDS ORDERED: SODIUM CHLORIDE 0.9% 50 ML BAG ONE (23:59)
[2023-11-20] MEDS ORDERED: LEVOTHYROXINE 50 MCG TAB ONE (05:33)
[2023-11-20] MEDS ORDERED: methylPREDNISolone SOD SUCCI 40 MG/ML 1 ML VIAL ONE ×3 (05:33→23:03)
[2023-11-20] MEDS ORDERED: BUDESONIDE 0.5 MG/2 ML NEBU ONE ×2 (07:49→20:02)
[2023-11-20] MEDS ORDERED: IPRATROPIUM-ALBUTEROL 3 ML NEB ONE ×2 (07:50→20:02)
[2023-11-20] MEDS ORDERED: METOPROLOL SUCCINATE (ER) 25 MG TAB.ER.24H PO ONE (10:08)
[2023-11-20] MEDS ORDERED: CYANOCOBALAMIN 500 MCG TAB ONE (10:08)
[2023-11-20] MEDS ORDERED: FAMOTIDINE 20 MG TAB ONE ×2 (10:09→22:46)
[2023-11-20] MEDS ORDERED: APIXABAN 5 MG TAB ONE ×2 (10:09→22:45)
[2023-11-20] MEDS ORDERED: SERTRALINE 50 MG TAB ONE (10:09)
[2023-11-20] MEDS ORDERED: lisinopriL 5 MG TAB ONE (10:09)
[2023-11-20] MEDS ORDERED: ASPIRIN 81 MG ONE (10:09)
[2023-11-20] MEDS ORDERED: ALPRAZolam 0.25 MG TAB ONE ×3 (10:12→22:53)
[2023-11-20] MEDS ORDERED: cefTRIAXone 1 GM VIAL ONE (15:20)
[2023-11-20] MEDS ORDERED: ATORVASTATIN 40 MG TAB ONE (22:46)
[2023-11-20] MEDS ORDERED: MELATONIN 5 MG TABLET ONE (22:52)
[2023-11-20] MEDS ORDERED: PRIMIDONE 50 MG TAB ONE (23:59)
[2023-11-20] MEDS ORDERED: SODIUM CHLORIDE 0.9% 50 ML BAG ONE (23:59)
[2023-11-20] MEDS ORDERED: DOXYCYCLINE 100 MG CAP ONE (23:59)
[2023-11-21] MEDS ORDERED: LEVOTHYROXINE 50 MCG TAB ONE (06:21)
[2023-11-21] MEDS ORDERED: BUDESONIDE 0.5 MG/2 ML NEBU ONE (07:21)
[2023-11-21] MEDS ORDERED: IPRATROPIUM-ALBUTEROL 3 ML NEB ONE (07:21)
[2023-11-21] MEDS ORDERED: ASPIRIN 81 MG ONE (08:29)
[2023-11-21] MEDS ORDERED: CYANOCOBALAMIN 500 MCG TAB ONE (08:29)
[2023-11-21] MEDS ORDERED: lisinopriL 5 MG TAB ONE (08:29)
[2023-11-21] MEDS ORDERED: METOPROLOL TARTRATE 12.5 MG TAB ONE (08:29)
[2023-11-21] MEDS ORDERED: SERTRALINE 50 MG TAB ONE (08:29)
[2023-11-21] MEDS ORDERED: APIXABAN 5 MG TAB ONE (08:30)
[2023-11-21] MEDS ORDERED: FAMOTIDINE 20 MG TAB ONE (08:30)
[2023-11-21] MEDS ORDERED: methylPREDNISolone SOD SUCCI 40 MG/ML 1 ML VIAL ONE (08:30)
[2023-11-21] MEDS ORDERED: ALPRAZolam 0.25 MG TAB ONE (08:36)
[2023-11-21] MEDS ORDERED: DOXYCYCLINE 100 MG CAP ONE (09:00)
[2023-11-21] MEDS ORDERED: PRIMIDONE 50 MG TAB ONE (09:00)
--- NOTE | 2023-12-25 08:58 | XR ---
Patient Phil Yap ID [id number] EXAMINATION TYPE: XR chest 1V DATE OF EXAM: 11/19/2023 12:04 PM CLINICAL INDICATION: Chest pain and SOB COMPARISON: THIS EXAM WAS READ DURING PACS DOWNTIME, NO PRIORS AVAILABLE. TECHNIQUE: XR chest 1V Frontal view of the chest. FINDINGS: Lungs/Pleura: There is no evidence of pleural effusion, focal consolidation, or pneumothorax. Pulmonary vascularity: Unremarkable. Heart/mediastinum: Cardiomediastinal silhouette is unremarkable. Single-lead cardiac conduction devic e overlying the left hemithorax with lead projecting over the right ventricle. Musculoskeletal: No acute osseous pathology. Other findings: None IMPRESSION: No acute cardiopulmonary disease/process.
--- NOTE | 2023-12-27 18:08 | CT ---
EXAM: CT Angiography Chest With Intravenous Contrast CLINICAL HISTORY: CTA THORACIC ABD PELVIS W CONTRAST chest pain, SOB, fever TECHNIQUE: Axial computed tomographic angiography images of the chest with intravenous contrast. CTDI is 16.6 mGy and DLP is 1147.2 mGy-cm. This CT exam was performed using one or more of the following dose reduction techniques: automated exposure control, adjustment of the mA and/or kV according to patient size, and/or use of iterative reconstruction technique. MIP reconstructed images were created and reviewed. COMPARISON: None. FINDINGS:Diagnostic sensitivity of the exam is reduced by motion artifact. Pulmonary arteries:Normal caliber. No pulmonary embolism. Aorta:Atheromatous calcification of the aortic arch. No thoracic aortic aneurysm. No aortic dissection. Heart: Mild cardiomegaly. No significant pericardial effusion. Multivessel calcified coronary arterial atherosclerosis.. Pacemaker intracardiac electrode leads. Lungs:Central airways are patent. Moderate bilateral bronchial wall thickening. Centrilobular emphysema. No mass. No consolidation. Pleural space:Unremarkable. No significant effusion. No pneumothorax. Bones/joints:No acute fracture. No dislocation. Soft tissues:Unremarkable. Lymph nodes:Unremarkable. No enlarged lymph nodes. IMPRESSION: No pulmonary embolism, aortic aneurysm or dissection. Cardiomegaly. Multivessel coronary arterial calcified atherosclerosis. Moderate bilateral bronchial wall thickening. Centrilobular pulmonary emphysema. No acute CT chest findings. . EXAM: CT Angiography Abdomen and Pelvis With Intravenous Contrast CLINICAL HISTORY: CTA THORACIC ABD PELVIS W CONTRAST chest pain, SOB, fever TECHNIQUE: Axial computed tomographic angiography images of the abdomen and pelvis with intravenous contrast. This CT exam was performed using one or more of the following dose reduction techniques: automated exposure control, adjustment of the mA and/or kV according to patient size, and/or use of iterative reconstruction technique. MIP reconstructed images were created and reviewed. COMPARISON: No relevant prior studies available. FINDINGS: VASCULATURE: Aorta:Diffuse calcified atherosclerosis. No abdominal aortic aneurysm. No dissection. Celiac trunk::No acute findings. Small focal atheromatous calcification at the origin with <50%luminal narrowing No occlusion. SMA: Somewhat bulky focal atheromatous calcification at the origin with 50- 70%luminal narrowing. No occlusion. Renal arteries: Two right renal arteries(a dominant and a diminutive artery, series 502 image 87): Calcified plaque at the origin of the dominant right renal artery with 50- 70%stenosis. No occlusion. A single left renal artery with a small foci of calcifications proximally, <50%stenosis. Iliac/common femoral arteries arteries:Bilaterally diffuse calcified atherosclerosis without flow-limiting stenosis. Lung bases:Unremarkable. No mass. No consolidation. ABDOMEN: Liver:Diffuse moderate hepatic steatosis.. No mass. Gallbladder and bile ducts: Prior cholecystectomy. No ductal dilation. Pancreas: Moderate fatty infiltration. No ductal dilation. No mass. Spleen:Unremarkable. No splenomegaly. Adrenals:Unremarkable. No mass. Kidneys and ureters:A few small nonobstructive left kidney stones.. No hydronephrosis. No solid mass. Stomach and bowel:A small hiatal hernia with circumferential up to 12 mm distal esophageal wall thickening (series 501 image 110). A somewhat distended stomach. No obstruction. No mucosal thickening. PELVIS: Appendix:No acute findings in the region of the appendix. Bladder:Unremarkable. No mass. Reproductive: Moderate prostatomegaly. ABDOMEN and PELVIS: Intraperitoneal space:Unremarkable. No significant fluid collection. No free air. Bones/joints:No acute fracture. No dislocation. Thoracolumbar degenerative spondylosis with anteriorly bridging osteophytes. Soft tissues:Unremarkable. Small bilateral paraumbilical fat-containing hernias. A small left fat containing inguinal hernia. Lymph nodes:Unremarkable. No enlarged lymph nodes. IMPRESSION: Diffuse calcified atherosclerosis of the normal caliber aortoiliac vasculature and branch vessels with luminal narrowing/stenosis, as described above.. Additional ancillary observations as above. Radiologist: Fletcher Persaud MD, DABR Electronically Signed: 11/19/23 03:58 Study ready at 03:08 and initial results transmitted at 03:58 Results also transmitted to Film Room, Film Room @ [phone] (Fax) MTDD
== END 2023-11-21 10:46 | disposition home or self-care (01) ==
LOC: 6NMEDSUR 02:00 → UNDOADMOB 02:00 → UNDODISOB 11-21 10:46
PROVIDERS: ADMIT Family Medicine; ATTEND Family Medicine
DX: J44.1 Chronic obstructive pulmonary disease with (acute) exacerbation (principal); I48.0 Paroxysmal atrial fibrillation; I11.0 Hypertensive heart disease with heart failure; I50.9 Heart failure, unspecified; R07.89 Other chest pain; E78.5 Hyperlipidemia, unspecified; G20.A1 Parkinson's disease without dyskinesia, without mention of fluctuations; I45.10 Unspecified right bundle-branch block; R11.0 Nausea; R10.13 Epigastric pain; R14.0 Abdominal distension (gaseous); Z79.01 Long term (current) use of anticoagulants; Z79.3 Long term (current) use of hormonal contraceptives; Z79.899 Other long term (current) drug therapy; Z87.891 Personal history of nicotine dependence; Z95.810 Presence of automatic (implantable) cardiac defibrillator; Z11.52 Encounter for screening for COVID-19; Z11.59 Encounter for screening for other viral diseases
CPT/HCPCS: 71045; 71275; 74174; 94640; 96365; 96366; 96375; 96376; 99285